=== PATIENT | male | born 1965 | race Caucasian/White ===

== ENCOUNTER 2022-07-24 11:26 | Emergency (ER) | payer MEDICAID, SELFPAY ==
--- NOTE | 2022-07-24 11:37 | PC.NURSE ---
pt ambulatory from restroom to ED room 10 without complications
[2022-07-24 11:38] VITALS: BP 190/117; PULSE 96; RESP 18; TEMP 36.9; O2SAT 90; BMI 30.5
--- NOTE | 2022-07-24 11:50 | PC.NURSE ---
Joseline Admin. rouning on patient and family member
[2022-07-24 11:51] LABS: Microscopic, Urine URINE MICROSCOPIC (MICROSCOPIC)
[2022-07-24 11:52] LABS: Appearance,Urine CLEAR (Clear); Bilirubin,Urine Negative (Negative); Blood, Urine TRACE-I (Negative); Color,Urine YELLOW (Yellow); Glucose,Urine (UA) Negative (Negative); Ketones,Urine Negative (Negative); Leukocyte Esterase,Urine Negative (Negative); Nitrate,Urine Negative (Negative); Protein,Urine 2+ (Negative); Specific Gravity, Urine 1.025 (1.005-1.030); Urobilinogen,Urine 0.2 EU/dl (0.2)
[2022-07-24 12:00] VITALS: BP 169/114; PULSE 90; O2SAT 92
--- NOTE | 2022-07-24 12:05 | HMH.EDGENADL ---
Discharge Plan Disposition Patient Disposition: Home, Self-Care Prescriptions Prescriptions: No Action albuterol sulfate [ProAir HFA] 90 mcg/actuation HFA aerosol inhaler 2 puff INHALATION Q4-6H PRN budesonide-formoterol [Symbicort] 80-4.5 mcg/actuation HFA aerosol inhaler 1 inh IH BID Qty: 10.2 2RF lisinopril 40 mg tablet 40 mg PO DAILY Qty: 90 0RF levofloxacin 500 mg tablet 500 mg PO DAILY Qty: 7 0RF prednisone 20 mg tablet See Rx Instructions .Route .COMPLEX Qty: 15 0RF Rx Instructions: Take 1 tablet twice daily for 5 days, then Take 1 tablet daily for 5 days; amlodipine 10 mg tablet See Rx Instructions .ROUTE .COMPLEX Qty: 90 0RF Dose Instruction: TAKE 1 TABLET BY MOUTH EVERY DAY Rx Instructions: TAKE 1 TABLET BY MOUTH EVERY DAY atorvastatin 20 mg tablet See Rx Instructions .ROUTE .COMPLEX Qty: 90 0RF Dose Instruction: TAKE 1 TABLET BY MOUTH AT BEDTIME Rx Instructions: TAKE 1 TABLET BY MOUTH AT BEDTIME Referrals Follow up/Referrals: Fly Wadsworth MD [Primary Care Provider] - See instructions Clinical Impressions Clinical Impression: COPD (chronic obstructive pulmonary disease), Nonspecific abdominal pain Instructions Patient Instructions: DI for Acute Abdominal Pain Discharge ED Provider: Ishmael Pinto Adult HPI General Chief complaint: Abdominal Pain Stated complaint: abd pain, sent by Dr. Wadsworth Time Seen by Provider: 07/24/22 12:05 Mode of Arrival: Ambulatory Source of Information: Patient Limitations: No Limitations Description of Symptoms (Recalled from ER Triage Doc. by RN): Pt report no energy, tired feeling and abd pain that began wednesday of this week. Pt denies n/v/d or fever. Pt seen by pcp and sent to ER for further evaluation. History of Present Illness HPI narrative: Patient is a 57-year-old male sent over by Dr. Wadsworth for concerns for abdominal discomfort. Patient states that for the last several days has had lower abdominal and right upper quadrant abdominal discomfort. Denies this being postprandial. States it is worse in the morning and bilateral. States is associate with abdominal distention. Patient also complains of chronic cough dyspnea wheezing associate with his COPD which she states is unchanged from the past. Pain is mild to moderate at the moment and he is here because he was sent by his primary care physician. Related Data Home Medications Medication Instructions Recorded Confirmed albuterol sulfate 90 mcg/actuation 2 puff inhalation Q4-6H PRN 10/07/21 07/24/22 aerosol inhaler (ProAir HFA) Previous Rx's Medication Instructions Recorded budesonide-formoterol HFA 80 1 inh inhalation BID #10.2 grams 11/18/21 mcg-4.5 mcg/actuation aerosol inhaler (Symbicort) lisinopril 40 mg tablet 40 mg PO DAILY #90 tabs 11/18/21 amlodipine 10 mg tablet See Rx Instructions .Route 05/27/22 .COMPLEX #90 tabs atorvastatin 20 mg tablet See Rx Instructions .Route 05/27/22 .COMPLEX #90 tabs levofloxacin 500 mg tablet 500 mg PO DAILY #7 tabs 07/20/22 prednisone 20 mg tablet See Rx Instructions .Route 07/20/22 .COMPLEX #15 tabs Allergies Allergy/AdvReac Type Severity Reaction Status Date / Time acetaminophen [From Tylenol] Allergy Intermediate Rash Verified 07/24/22 11:06 [facility] Disclaimer: The information contained in this section may have been updated after the patient was seen, as this information can be updated by other users. Social History Smoking Status: Current every day smoker tobacco type: cigarettes packs per day: 1 alcohol intake: current substance use type: denies use current occupational status: employed Travel in the last 8 weeks: None ROS Obtained: Yes All systems reviewed & no additional complaints except as documented Physical Exam General General appearance: alert and in no apparent distress
[2022-07-24 12:11] LABS: Bacteria,Urine Trace /lpf; RBC,Urine Occasional #/hpf (0-3); WBC,Urine Occasional #/hpf (0-3)
--- NOTE | 2022-07-24 12:28 | XR_ITS ---
FINAL REPORT CLINICAL HISTORY: hx copd FINDINGS: SINGLE-VIEW CHEST The heart size is normal. The mediastinum is normal. There is mild right lung base atelectasis or scar. There is no pneumothorax. IMPRESSION: Right lung base atelectasis versus scar. Reviewed, Interpreted and Dictated by Cody Ge III, MD Transcribed by Leticia Rojas Authenticated and [facility]
--- NOTE | 2022-07-24 12:28 | CT_ITS ---
FINAL REPORT TECHNIQUE: Postcontrast axial images through the abdomen and pelvis were performed. This study was performed with techniques to keep radiation doses as low as reasonably achievable, (ALARA). Individualized dose reduction techniques using automated exposure control or adjustment of mA and/or kV according to the patient's size were employed. CLINICAL HISTORY: abd pain FINDINGS: Abdomen: There is severe coronary artery calcification. There is mild scar or atelectasis in the lung bases. There is mild fatty infiltration of the liver. Mild gallbladder wall thickening is identified. The spleen is unremarkable. The adrenals are normal. The pancreas is unremarkable. The kidneys enhance appropriately. The aorta is normal in caliber. No free fluid or adenopathy is identified. No findings for mechanical bowel obstruction are identified. Edema/inflammation is seen at the level of the umbilicus. Pelvis: The appendix is normal. The urinary bladder is unremarkable. No free fluid, free air, abscess or adenopathy is identified. There is postoperative change in the right femur. IMPRESSION: Mild fatty liver. Severe coronary artery calcification. Reviewed, Interpreted and Dictated by Cody Ge III, MD Transcribed by Leticia Rojas Authenticated and . [facility]
[2022-07-24 12:43] LABS: Basophils # 0.2 K/mm3 (0-0.2); Basophils % 1.7 % (0.1-2.0); Eosinophils % 0.2 % (0.1-12.0); Lymphocytes # 0.9 K/mm3 (0.7-4.5); Lymphocytes % 7.5 % (10-50); Mean Corpuscular HGB Conc 31.7 g/dL (31.8-35.4); Mean Corpuscular Hemoglobin 30.8 pg (27.0-31.2); Mean Corpuscular Volume 97.2 fl (80-94); Mean Platelet Volume 8.7 fl (7.4-10.4); Monocytes # 1.7 K/mm3 (0.1-1.0); Monocytes % 13.2 % (1.7-9.3); Neutrophils # 9.8 K/mm3 (1.8-7.8); Neutrophils % 77.5 % (37.0-80.0); Platelet Count 166 K/mm3 (142-424); Red Blood Count 6.74 M/mm3 (4.60-6.20); White Blood Count 12.6 K/mm3 (4.8-10.8)
[2022-07-24 12:53] LABS: Alanine Aminotransferase 87 U/L (12-78); Albumin/Globulin Ratio 1.2 (1.1-1.8); Alkaline Phosphatase 78 U/L (38-126); Aspartate Amino Transferase 55 U/L (17-59); Blood Urea Nitrogen 23 mg/dl (9-20); Calcium 8.8 mg/dl (8.4-10.2); Chloride 89 mmol/L (98-107); Creatinine Clearance Estimated 149 mL/min (50-200); Estimated Glomerular Filt Rate 100 ml/min (>60); GFR (African American) 121 ML/MIN (>60); Globulin 3.3 g/dL (1.3-3.2); Glucose 138 mg/dl (74-100); Lipase 144 U/L (23-300); Sodium 135 mmol/L (136-145); Total Protein,Serum 7.3 g/dl (6.3-8.2)
[2022-07-24 12:58] LABS: Hematocrit 65.5 % (42.0-52.0)
--- NOTE | 2022-07-24 12:58 | PC.NURSE ---
notified ER of critical h/h
[2022-07-24 13:00] VITALS: BP 177/123; PULSE 75; RESP 17; O2SAT 95
[2022-07-24 13:00] LABS: Hemoglobin 20.8 g/dL (14.1-18.0)
[2022-07-24 13:04] VITALS: BP 193/132; PULSE 80; RESP 18; O2SAT 95
[2022-07-24 13:20] LABS: Carbon Dioxide 39 mmol/L (22.0-30.0)
--- NOTE | 2022-07-24 13:30 | PC.NURSE ---
pt back from rad
[2022-07-24 15:13] VITALS: BP 117/109; PULSE 89; RESP 18; TEMP 36.7
== END 2022-07-24 15:14 | disposition home or self-care (01) ==
PROVIDERS: Emergency Provider Student in an Organized Health Care Education/Training Program; PCP Emergency Medicine
DX: R10.11 Right upper quadrant pain (principal); R10.30 Lower abdominal pain, unspecified; J44.9 Chronic obstructive pulmonary disease, unspecified; R05.3 Chronic cough; F17.210 Nicotine dependence, cigarettes, uncomplicated
CPT/HCPCS: 71045; 74177; 80053; 81001; 83690; 85025; 99285; Q9967

== ENCOUNTER → 2022-09-15 06:01 | Outpatient (CLI) | payer MEDICAID, SELFPAY ==
--- NOTE | 2022-09-15 | CA_ITS ---
APPROVED REPORT Exam: Pharmacologic Technologist: Marilia Garcia Ht: 6 ft 0 in Wt: 228 lbs BSA: 2.25 m2 HR: 93 bpm BP: 185/124 mmHg Indications: Tachycardia, Edema Medical History Medications: Atorvastatin,,,,, Carvedilol,,,,, SyMBICORT,,,,, Albuterol,,,,, Furosemide,,,,, Stress Test Details Test: LEXISCAN HR Resting HR: 88 bpm Max Heart Rate (APMHR): 164.149098 bpm Max HR Achieved: 104 bpm Target HR (85% APMHR): 139.146971 bpm % of APMHR: 63.41 Recovery HR: 92 bpm BP Resting BP: 185.0/124.0 mmHg Max BP: 195.0/125.0 mmHg Recovery BP: 186.0/123.0 mmHg ECG Resting ECG: Normal sinus rhythm, PACs, rightward axis Clinical Exercise duration: 04:12 min Highest Stage Achieved: Exercise capacity: 1.0 METs Stress ECG Conclusion Symptoms: Mild shortness of air, head discomfort. No chest pain. Arrhythmias/Ectopy: Occasional PAC ST-T Changes: No significant changes Conclusion: Unremarkable Lexiscan stress. Myoview images reported separately. Home blood pressure medications given (Lisinopril 40, Coreg 12.5) Blood pressure after stress imaging (75 minutes after medication taken) 156/104. Test Summary REST . . . . . . . Resting REST 12:22 . . 88 . 185/124 . . Stage 1 . . . . . . . Myoview Injected Stage 1 01:00 . . 92 . . . . Stage 2 01:00 . . 96 . . . . Stage 3 01:00 . . 89 . 185/122 . . Stage 4 01:00 . . 88 . . . . Stage 4 01:12 . . 90 . 183/121 . Stop exercise at 04:12 RECOVERY 01:00 . . 100 . 195/125 . . RECOVERY 02:00 . . 96 . 195/125 . . RECOVERY 03:00 . . 93 . 195/119 . . RECOVERY 03:45 . . 90 . 186/123 . . Electronically signed by : Norris Mcclellan MD 09/15/2022 19:27:31
--- NOTE | 2022-09-15 07:29 | NM_ITS ---
APPROVED REPORT Exam: Nuclear Stress Test Indication: DYSRHYTHMIA, HTN, TOB USE, FM HX, C.P,SOB, PALPITATIONS, EDEMS, TACHYCARDIA Patient Location: Outpatient Stress Tech: Marilia Garcia MT Tech:Wendie Yun, SINCERE RT (R)(N)(M) Ht: 6 ft 0 in Wt: 225 lbs HR: 93 bpm BP: 185/124 mmHg BSA: 2.24 m2 TID: 1.12 Procedure: Patient received 0.4 mg of intravenous Lexiscan, resting heart rate 93 bpm, resting blood pressure 185/124 mmHg, with Lexiscan maximum heart rate achieved was 96 bpm which is % of the maximum predicted heart rate and blood pressure was 185/122 mmHg. With Lexiscan, patient denied any complaint of chest pain. SOA Electrocardiogram Resting electrocardiogram showed sinus rhythm, with Lexiscan there is less than 1.[address] segment depression noted from the baseline EKG. The EKG portion of the Lexiscan is nondiagnostic. Cardiac Stress and Resting SPECT Images: Cardiac Stress and Resting SPECT images were obtained using technetium 99m Myoview 31.0 mCi stress and 10.14 mCi at rest. Gated SPECT analysis of segmental wall motion and calculation of the ejection fraction also done. Prone images were also obtained. Cardiac stress and rest SPECT images show uniform myocardial activity without segmental perfusion abnormality, computer derived ejection fraction 35% with left ventricular global hypokinesis. Right ventricle is normal size and contractility. Conclusion: 1. The EKG portion of the Lexiscan is nondiagnostic. 2. No scintigraphic evidence of reversible ischemia seen, computer derived ejection fraction 35% with left ventricular global hypokinesis, right ventricle is normal size and contractility. 3. Normal myocardial perfusion imaging except for low ejection fraction. Electronically signed by : Norris Mcclellan MD 09/15/2022 19:36:05
--- NOTE | 2022-09-15 07:50 | CA_ITS ---
APPROVED REPORT EXAM: Comprehensive 2D, Doppler, and color-flow Echocardiogram Senior Wealth Advisor: Mena Lopez RVT Ht: 6 ft 0 in Wt: 225lbs BSA: 2.24 BP: 148/76 mmHg Indications: EDEMA,TACHYCARDIA,COPD,HTN,HLD,SMOKER 2D Dimensions LVOT 2.03 cm (M/F) 1.5-2.5 LA Volume 30.10 mL LA Volume Index 13.44 mL/m2 (M/F) 16-34 M-Mode Dimensions RVDd 2.70 cm (0.9-2.6) LA Diam 4.01 cm (1.9-4.0) LVDd 4.44 cm (3.5-5.7) Ao Diam 2.65 cm (2.0-3.7) LVDs 3.35 cm (3.5-5.7) IVSd 0.62 cm (0.6-1.1) PWd 0.83 cm (0.6-1.1) EF (Teich) 48.90% FS 24.50% EDV (Teich) 89.60 mL TAPSE 1.88 (<1.7) ESV (Teich) 45.80 mL LV Diastology E Decel Time 220.00 (160-240 msec) E/A Ratio 0.9 MED E' 8.20 (< 7 cm/sec) E'/MED E' Ratio 9.37 (>14) LAT E' 9.40 (<10 cm/sec) E/LAT E' Ratio 8.17 (>14) Aortic Valve AO Peak GR. 7.40 mmHg Mitral Valve MV E Max Pablo. 77.00 (40-130 cm/s) MV A Velocity 83.00 (40-130 cm/s) E/A Ratio 0.92 MV Decel. Time 220.00 (160-240 ms) MV PHT 64.00 ms Pulmonary Valve PV Peak Velocity 69.00 (50-150 cm/s) Tricuspid Valve TR P. Velocity 321.00 cm/s RAP Estimate 10.00 mmHg RVSP 51.10 mmHg Left Ventricle Left atrium normal size left ventricle normal size, estimated ejection fraction 55% with no regional wall motion abnormality, there is abnormal septal motion. Right Ventricle Right atrium and right ventricle moderately enlarged with normal contractility. Aortic Valve Aortic valve is minimally thickened and fibrosed there is no aortic stenosis aortic insufficiency. Mitral Valve Mitral valve is grossly normal, there is trace mitral regurgitation. Tricuspid Valve Tricuspid valve grossly normal, there is trace tricuspid regurgitation, tricuspid regurgitation jet velocity is inadequate for calculation of the right ventricular systolic pressure. Pulmonic Valve Pulmonic valve is poorly visualized. Great Vessels Aortic root is normal size. Inferior vena cava is poorly visualized. Pericardium No significant pericardial effusion noted. Conclusion 1. Normal left ventricular size, estimated ejection fraction 55% with no regional wall motion abnormality, grade 1 diastolic dysfunction seen without tissue Doppler evidence of raise left atrial pressure. There is abnormal septal motion. 2. Moderately enlarged right ventricle with normal contractility. 3. Trace mitral and tricuspid regurgitation. 4. No significant pericardial failure. 5. Inferior vena cava is poorly visualized. Electronically signed by : Norris Mcclellan MD 09/16/2022 05:54:00
== END ==
LOC: RAD 06:01
PROVIDERS: PCP Emergency Medicine; Visit Provider Nurse Practitioner Family
DX: R00.0 Tachycardia, unspecified (principal); I10 Essential (primary) hypertension; R60.0 Localized edema; Z72.0 Tobacco use
CPT/HCPCS: 78452; 93017; 93306; A9502; J2785

== ENCOUNTER → 2022-09-22 14:18 | Outpatient (CLI) | payer MEDICAID, SELFPAY ==
[2022-09-22 14:50] LABS: Basophils # 0.2 K/mm3 (0-0.2); Eosinophils # 0.1 K/mm3 (0.0-0.4); Eosinophils % 1.8 % (0.1-12.0); Lymphocytes # 1.2 K/mm3 (0.7-4.5); Lymphocytes % 16.1 % (10-50); Mean Corpuscular HGB Conc 30.4 g/dL (31.8-35.4); Mean Corpuscular Hemoglobin 29.6 pg (27.0-31.2); Mean Corpuscular Volume 97.4 fl (80-94); Mean Platelet Volume 9.1 fl (7.4-10.4); Monocytes % 13.7 % (1.7-9.3); Neutrophils % 66.4 % (37.0-80.0); Platelet Count 148 K/mm3 (142-424); Red Blood Count 6.99 M/mm3 (4.60-6.20); Red Cell Distribution Width 15.8 % (11.5-17.5); White Blood Count 7.6 K/mm3 (4.8-10.8)
[2022-09-22 15:11] LABS: Alanine Aminotransferase 23 U/L (12-78); Albumin Level 3.8 g/dl (3.5-5.0); Alkaline Phosphatase 110 U/L (38-126); Aspartate Amino Transferase 35 U/L (17-59); Bilirubin,Indirect 0.9 mg/dL (0.0-0.9); Bilirubin,Total 0.9 mg/dl (0.2-1.3); Bilirubin,Unconjugated 0.9 mg/dL (0.0-1.1); Blood Urea Nitrogen 18 mg/dl (9-20); Calcium 8.4 mg/dl (8.4-10.2); Chloride 88 mmol/L (98-107); Chol/HDL Ratio 3.9 (1-3.5); Cholesterol 118 mg/dl (140-200); Estimated Glomerular Filt Rate 100 ml/min (>60); GFR (African American) 121 ML/MIN (>60); Glucose 252 mg/dl (74-100); HDL Cholesterol 30 mg/dl (40-60); Magnesium 1.7 mg/dl (1.6-2.3); Potassium 4.8 mmoL/L (3.5-5.1); Sodium 134 mmol/L (136-145); Triglycerides 159 mg/dl (30-150); VLDL Cholesterol 32 mg/dL (0-40)
[2022-09-22 15:17] LABS: Anion Gap 11.8 mEq/L (5-15); Carbon Dioxide 39 mmol/L (22.0-30.0)
[2022-09-22 15:21] LABS: Hematocrit 68.1 % (42.0-52.0)
[2022-09-22 15:22] LABS: Direct LDL Cholesterol 80.18 mg/dL (100-129); Hemoglobin 20.7 g/dL (14.1-18.0)
[2022-09-22 15:27] LABS: Free T4 (Free Thyroxine) 1.06 ng/dl (0.78-2.19)
[2022-09-22 15:41] LABS: Thyroid Stimulating Hormone 1.41 uIU/mL (0.465-4.68)
== END ==
PROVIDERS: PCP Emergency Medicine; Visit Provider Physician Assistant
DX: R06.00 Dyspnea, unspecified (principal); R00.0 Tachycardia, unspecified; D45 Polycythemia vera; I10 Essential (primary) hypertension; R60.0 Localized edema; R93.1 Abnormal findings on diagnostic imaging of heart and coronary circulation; Z72.0 Tobacco use
CPT/HCPCS: 36415; 80048; 80061; 80076; 83735; 84439; 84443; 85025

== ENCOUNTER 2022-09-30 07:56 | Day surgery (SDC) | payer MEDICAID, SELFPAY ==
[2022-09-30] VITALS (13 sets, daily range): BP systolic 90–176; BP diastolic 50–118; PULSE 63–104; RESP 16–18; TEMP 36.9; O2SAT 88–99; BMI 30.6
--- NOTE | 2022-09-30 07:09 | IR_ITS ---
APPROVED REPORT Patient Location: Outpatient PROCEDURES Left heart catheterization Left ventriculogram Selective coronary angiogram Drug-eluting stent deployment to the proximal codominant circumflex artery INDICATION Coronary artery disease, Worsening ejection fraction, Abnormal Myoview, Angina pectoris Informed consent was obtained prior to the procedure. COMPLICATIONS None Estimated Blood Loss: Less than 10 mls TECHNIQUE One percent lidocaine used to anesthetize the right anterior aspect of the wrist. The right radial artery was accessed via the Seldinger technique. A 6 American sheath was placed in the right radial artery. 150 mg magnesium sulfate, 800 mcg of nitroglycerin, 1mg Lidocaine and 5000 U Heparin were given through the arterial sheath. The papa catheter and 6 American JL 3 guide catheter were also used to perform left heart catheterization, left ventriculogram and selective coronary angiogram. At the end the diagnostic angiogram therapeutic heparin was administered giving a therapeutic ACT and a JL 3 was left in the left main artery followed by Choice PT extra-support wire being placed on the circumflex artery. A 4 mm x 12 mm resolute for anterior stent was deployed at 20 nick reducing the severe stenosis to 0%. SKYLAR-3 flow was present before and after the procedure. At the end of the procedure 200 cc of blood was removed due to the polycythemia. The sheath was then removed good hemostasis was achieved using TR banding patient was transferred to the postop holding in stable condition ANGIOGRAPHIC RESULTS The left main artery Normal The left anterior descending artery Has proximal and mid vessel 20,30 and 40% stenoses The circumflex artery Is codominant and has a proximal concentric 70% stenosis The right coronary artery Is codominant and has proximal 30% stenosis with a mid vessel 30 to 40% stenosis and distal 10% luminal regularities The GUTHRIE ventriculogram reveals Slight left ventricular dilatation ejection fraction 45 to 50% The left ventricular end-diastolic pressure 20 mmHg IMPRESSION Moderate disease throughout the LAD as described above Severe stenosis in the proximal codominant circumflex artery with successful stenting reducing the severe stenosis to 0% with 1 drug-eluting stent Slight left ventricular dilatation with slightly reduced ejection fraction mildly elevated LVEDP PLAN 1. Dual antiplatelet therapy 2. Urgent consultation with Dr. Haley for treatment of almost certain obstructive sleep apnea 3. Large volume phlebotomy was not performed today due to the increase in thrombogenesis following large blood loss especially in the setting of a drug-eluting stent. Only 200 cc of blood was removed today 4. LDL less than 55 to be achieved with high intensity statin 5. Avoidance of tobacco product 6. Risk factor modification 7. Large volume phlebotomy next week Electronically signed by : Arben Rod MD 09/30/2022 11:18:07
--- NOTE | 2022-09-30 15:20 | P.CONPHA_ITS ---
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
[2022-09-30 17:13] LABS: CATHL Activated Clotting Time 354 SEC (74-125)
== END 2022-09-30 15:17 | disposition home or self-care (01) ==
PROVIDERS: PCP Emergency Medicine; Visit Provider Internal Medicine
DX: I25.10 Atherosclerotic heart disease of native coronary artery without angina pectoris (principal); R06.02 Shortness of breath; I10 Essential (primary) hypertension; F17.210 Nicotine dependence, cigarettes, uncomplicated; Z79.899 Other long term (current) drug therapy; E78.5 Hyperlipidemia, unspecified; J44.9 Chronic obstructive pulmonary disease, unspecified
CPT/HCPCS: 85347; 92928; 93458; 99152; 99153; C1725; C1769; C1876; C9600; J1644; Q9967

== ENCOUNTER 2022-10-12 09:29 | Outpatient (CLI) | payer MEDICAID, SELFPAY ==
[2022-10-12 09:44] LABS: MANUAL DIFFERENTIAL MANUAL DIFFERENTIAL (MANUAL DIFF)
[2022-10-12 10:04] LABS: Basophils # 0.1 K/mm3 (0-0.2); Basophils % 1.7 % (0.1-2.0); Eosinophils # 0.4 K/mm3 (0.0-0.4); Eosinophils % 5.1 % (0.1-12.0); Lymphocytes # 1.1 K/mm3 (0.7-4.5); Lymphocytes % 15.2 % (10-50); Mean Corpuscular HGB Conc 30.3 g/dL (31.8-35.4); Mean Corpuscular Hemoglobin 29.2 pg (27.0-31.2); Mean Corpuscular Volume 96.3 fl (80-94); Mean Platelet Volume 9.3 fl (7.4-10.4); Monocytes # 0.5 K/mm3 (0.1-1.0); Monocytes % 7.4 % (1.7-9.3); Neutrophils # 5.2 K/mm3 (1.8-7.8); Neutrophils % 70.7 % (37.0-80.0); Platelet Count 122 K/mm3 (142-424); Red Cell Distribution Width 15.9 % (11.5-17.5); White Blood Count 7.4 K/mm3 (4.8-10.8)
[2022-10-12 10:07] LABS: Red Blood Count 7.36 M/mm3 (4.60-6.20)
[2022-10-12 10:10] LABS: Hematocrit 70.9 % (42.0-52.0); Hemoglobin 21.5 g/dL (14.1-18.0)
[2022-10-12 10:16] LABS: Eosinophils % 4 % (0-3); Lymphocytes % 15 % (10-50); Monocytes % 4 % (2-9); Neutrophils % 77 % (42-76); Total Cells Counted 100
[2022-10-12 10:17] LABS: Anisocytosis 1+; Hypochromasia 1+; Macrocytosis 1+; Platelet Estimate Slight Decrease
[2022-10-12 11:10] LABS: Chloride 90 mmol/L (98-107); Sodium 137 mmol/L (136-145)
[2022-10-12 11:11] LABS: Potassium 4.7 mmoL/L (3.5-5.1)
[2022-10-12 11:13] LABS: Blood Urea Nitrogen 19 mg/dl (9-20); Estimated Glomerular Filt Rate 87 ml/min (>60); GFR (African American) 106 ML/MIN (>60)
[2022-10-12 11:14] LABS: Calcium 8.9 mg/dl (8.4-10.2); Glucose 203 mg/dl (74-100)
[2022-10-12 11:37] LABS: Anion Gap 9.7 mEq/L (5-15); Carbon Dioxide 42 mmol/L (22.0-30.0)
[2022-10-12 11:50] VITALS: BP 154/107; PULSE 79; RESP 18; O2SAT 91
[2022-10-12 12:40] VITALS: BP 174/99; PULSE 76; RESP 18; O2SAT 90
== END 2022-10-12 12:40 | disposition home or self-care (01) ==
PROVIDERS: Nurse Practitioner Family; PCP Emergency Medicine; Visit Provider Internal Medicine
DX: D45 Polycythemia vera (principal); G47.33 Obstructive sleep apnea (adult) (pediatric); I25.10 Atherosclerotic heart disease of native coronary artery without angina pectoris; R06.09 Other forms of dyspnea; R93.1 Abnormal findings on diagnostic imaging of heart and coronary circulation; I10 Essential (primary) hypertension
CPT/HCPCS: 36415; 80048; 85007; 85014; 85018; 85048; 85049; 99195

== ENCOUNTER → 2022-10-20 12:59 | Outpatient (CLI) | payer MEDICAID, SELFPAY ==
--- NOTE | 2022-10-20 12:59 | US_ITS ---
FINAL REPORT CLINICAL HISTORY: .renal mass FINDINGS: RENAL ULTRASOUND Ultrasound images of the kidneys were obtained. The right kidney measures 12.6 cm in length. It is normal echogenicity. There is no hydronephrosis. The left kidney measures 11.3 cm in length. It is normal echogenicity. There is no hydronephrosis. Calcified granulomas are noted in the spleen. IMPRESSION: Normal renal ultrasound. Reviewed, Interpreted and Dictated by Ryan Moya MD Transcribed by Rhonda De Jesus Authenticated and . [facility]
== END ==
PROVIDERS: PCP Emergency Medicine; Visit Provider Nurse Practitioner Family
DX: N28.89 Other specified disorders of kidney and ureter (principal)
CPT/HCPCS: 76770

== ENCOUNTER 2023-01-01 10:37 | Outpatient (CLI) | payer MEDICAID, SELFPAY ==
[2023-01-01 11:07] LABS: Basophils # 0.1 K/mm3 (0-0.2); Basophils % 1.1 % (0.1-2.0); Eosinophils # 0.2 K/mm3 (0.0-0.4); Lymphocytes # 1.4 K/mm3 (0.7-4.5); Lymphocytes % 19.2 % (10-50); Mean Corpuscular HGB Conc 30.1 g/dL (31.8-35.4); Mean Corpuscular Hemoglobin 29.7 pg (27.0-31.2); Mean Corpuscular Volume 98.8 fl (80-94); Mean Platelet Volume 9.2 fl (7.4-10.4); Monocytes # 0.7 K/mm3 (0.1-1.0); Monocytes % 9.5 % (1.7-9.3); Neutrophils # 4.9 K/mm3 (1.8-7.8); Neutrophils % 67.3 % (37.0-80.0); Platelet Count 121 K/mm3 (142-424); Red Blood Count 6.94 M/mm3 (4.60-6.20); Red Cell Distribution Width 16.8 % (11.5-17.5); White Blood Count 7.3 K/mm3 (4.8-10.8)
[2023-01-01 11:27] LABS: Chloride 92 mmol/L (98-107); Potassium 4.3 mmoL/L (3.5-5.1); Sodium 139 mmol/L (136-145)
[2023-01-01 11:30] LABS: Alanine Aminotransferase 27 U/L (12-78); Albumin Level 4.1 g/dl (3.5-5.0); Alkaline Phosphatase 92 U/L (38-126); Aspartate Amino Transferase 44 U/L (17-59); Bilirubin,Direct 0.1 mg/dl (0.0-0.4); Bilirubin,Indirect 1.1 mg/dL (0.0-0.9); Bilirubin,Total 1.2 mg/dl (0.2-1.3); Bilirubin,Unconjugated 1.2 mg/dL (0.0-1.1); Blood Urea Nitrogen 18 mg/dl (9-20); Calcium 9.3 mg/dl (8.4-10.2); Cholesterol 117 mg/dl (140-200); Estimated Glomerular Filt Rate 87 ml/min (>60); GFR (African American) 106 ML/MIN (>60); Glucose 172 mg/dl (74-100); Total Protein,Serum 7.3 g/dl (6.3-8.2); Triglycerides 103 mg/dl (30-150); VLDL Cholesterol 21 mg/dL (0-40)
[2023-01-01 11:31] LABS: Chol/HDL Ratio 3.7 (1-3.5); HDL Cholesterol 32 mg/dl (40-60); Magnesium 1.6 mg/dl (1.6-2.3)
[2023-01-01 11:42] LABS: Direct LDL Cholesterol 69.45 mg/dL (100-129)
[2023-01-01 11:47] LABS: Anion Gap 10.3 mEq/L (5-15); Carbon Dioxide 41 mmol/L (22.0-30.0); Free T4 (Free Thyroxine) 1.05 ng/dl (0.78-2.19)
[2023-01-01 11:51] LABS: Hematocrit 68.6 % (42.0-52.0)
[2023-01-01 12:02] LABS: Thyroid Stimulating Hormone 1.48 uIU/mL (0.465-4.68)
[2023-01-01 12:07] LABS: Hemoglobin 20.5 g/dL (14.1-18.0)
[2023-01-01 12:18] VITALS: BP 162/90; PULSE 72; RESP 18; O2SAT 96
[2023-01-01 12:57] VITALS: BP 137/96; PULSE 75; RESP 18
== END 2023-01-01 12:57 | disposition home or self-care (01) ==
PROVIDERS: PCP Emergency Medicine; Visit Provider Nurse Practitioner
DX: R06.00 Dyspnea, unspecified (principal); D45 Polycythemia vera; I25.10 Atherosclerotic heart disease of native coronary artery without angina pectoris; I10 Essential (primary) hypertension; G47.33 Obstructive sleep apnea (adult) (pediatric); R93.1 Abnormal findings on diagnostic imaging of heart and coronary circulation; Z72.0 Tobacco use; Z95.5 Presence of coronary angioplasty implant and graft
CPT/HCPCS: 36415; 80048; 80061; 80076; 83735; 84439; 84443; 85025; 99195

== ENCOUNTER → 2023-01-06 13:02 | Outpatient (CLI) | payer MEDICAID, SELFPAY | PROVIDERS: PCP Emergency Medicine; Visit Provider Specialist | DX: G47.33 Obstructive sleep apnea (adult) (pediatric) (principal); R06.83 Snoring | CPT/HCPCS: G0399 ==

== ENCOUNTER 2023-04-09 14:22 | Inpatient (IN) | payer OTHER, SELFPAY ==
[2023-04-09] VITALS (13 sets, daily range): BP systolic 112–140; BP diastolic 73–97; PULSE 79–93; RESP 18–22; TEMP 36.5–37.2; O2SAT 82–95; BMI 29.9; BMI 30.9
--- NOTE | 2023-04-09 14:50 | CT_ITS ---
FINAL REPORT TECHNIQUE: Thin section axial CT with IV contrast supplemented with multiplanar reconstruction under CT angiogram protocol. 3-D reconstructions were performed. This study was performed with techniques to keep radiation doses as low as reasonably achievable (ALARA). Individualized dose reduction techniques using automated exposure control or adjustment of mA and/or kV according to the patient''s size were employed. CLINICAL HISTORY: ataxia, n/v COMPARISON: None FINDINGS: The distal vertebral, basilar and distal internal carotid arteries have an unremarkable appearance. No aneurysm is seen. Major intracranial vessels are patent without significant stenosis. IMPRESSION: No significant intracranial vascular abnormality identified. Reviewed, Interpreted and Dictated by Cody Ge III, MD Transcribed by Janie Bhagat Authenticated and [facility]
--- NOTE | 2023-04-09 14:50 | CT_ITS ---
FINAL REPORT CLINICAL HISTORY: ataxia, n/v COMPARISON: None FINDINGS: Axial images of the head were obtained without contrast. There is mild degradation of overall image quality secondary to motion artifact. Coronal and sagittal reformatted images were also obtained.This study was performed with techniques to keep radiation doses as low as reasonably achievable (ALARA). Individualized dose reduction techniques using automated exposure control or adjustment of mA and/or kV according to the patient's size were employed. There is no evidence of intracranial hemorrhage or mass. The ventricular size is within normal limits. There is no evidence of shift of the midline structures. No abnormal extra axial fluid collection is identified. No skull abnormality is seen on the bone window images. IMPRESSION: No acute intracranial abnormality. Reviewed, Interpreted and Dictated by Cody Ge III, MD Transcribed by Janie Bhagat Authenticated and [facility]
--- NOTE | 2023-04-09 14:50 | CT_ITS ---
FINAL REPORT TECHNIQUE: Thin section axial CT with IV contrast supplemented with multiplanar reconstruction under CT angiogram protocol. This study was performed with techniques to keep radiation doses as low as reasonably achievable (ALARA). Individualized dose reduction techniques using automated exposure control or adjustment of mA and/or kV according to the patient's size were employed. NASCET criteria was utilized during interpretation. CLINICAL HISTORY: ataxia, n/v COMPARISON: None FINDINGS: Aortic arch: Arch shows no significant narrowing. Great vessel origins are widely patent. Right carotid: The right common carotid artery is unremarkable in appearance. There is heavily calcified plaque present at the carotid bifurcation, which makes evaluation more difficult. The degree of stenosis does not appear to be greater than 30% luminal diameter. Left carotid: The left common carotid artery is unremarkable in appearance. There is mild heavily calcified plaque noted at the carotid bifurcation, which makes evaluation more difficult. However there does not appear to be any hemodynamically significant stenosis. Vertebral: Left vertebral artery is dominant. No significant stenosis is present. IMPRESSION: Calcified plaque at the carotid bifurcations bilaterally, with less than 50% stenosis on either side. Antegrade flow in the vertebral arteries bilaterally, with the left vertebral artery dominant. Reviewed, Interpreted and Dictated by Cody Ge III, MD Transcribed by Janie Bhagat Authenticated and [facility]
--- NOTE | 2023-04-09 14:53 | HMH.EDGENADL ---
Discharge Plan Disposition Patient Disposition: Admitted Prescriptions Prescriptions: No Action lisinopril 40 mg tablet 40 mg PO DAILY Qty: 90 3RF albuterol sulfate [ProAir HFA] 90 mcg/actuation HFA aerosol inhaler 2 puff INHALATION Q4-6H PRN (Reason: .) carvedilol 25 mg tablet See Rx Instructions .ROUTE .COMPLEX Qty: 180 3RF Dose Instruction: Take 1 tablet by mouth twice daily with food Rx Instructions: Take 1 tablet by mouth twice daily with food (DME) blood-glucose meter [Blood Glucose Monitoring] Kit See Rx Instructions .Route Qty: 1 0RF Rx Instructions: As directed (DME) Blood Glucose Test Strip See Rx Instructions .Route Qty: 50 3RF Rx Instructions: As directed 2 times a day ipratropium-albuterol 0.5 mg-3 mg(2.5 mg base)/3 mL solution for nebulization See Rx Instructions .ROUTE .COMPLEX Qty: 180 1RF Dose Instruction: USE 3 ML VIA NEBULIZER EVERY 4 TO 6 HOURS NEEDED FOR SHORTNESS OF BREATH OR WHEEZING Rx Instructions: USE 3 ML VIA NEBULIZER EVERY 4 TO 6 HOURS NEEDED FOR SHORTNESS OF BREATH OR WHEEZING metformin 500 mg tablet See Rx Instructions .ROUTE .COMPLEX Qty: 60 0RF Dose Instruction: Take 1 tablet by mouth twice daily Rx Instructions: Take 1 tablet by mouth twice daily aspirin 325 mg Tablet 325 mg PO DAILY budesonide-formoterol [Symbicort] 80-4.5 mcg/actuation HFA aerosol inhaler 1 inh IH BID atorvastatin 20 mg tablet See Rx Instructions .ROUTE .COMPLEX Rx Instructions: TAKE 1 TABLET BY MOUTH AT BEDTIME furosemide [Lasix] 20 mg tablet 20 mg PO DAILY Referrals Follow up/Referrals: Fly Wadsworth MD [Primary Care Provider] - See instructions Clinical Impressions Clinical Impression: Nausea & vomiting, Ataxia, SAUD (acute kidney injury), Acute dehydration Discharge ED Provider: Saqib Gilliland General Adult HPI <Thomas Pinto MD - Last Filed: 04/09/23 14:56> General Chief complaint: Neuro Symptoms/Deficit Stated complaint: vomiting since midnight, weakness,lightheaded Time Seen by Provider: 04/09/23 14:34 History of Present Illness HPI narrative: Patient is a 57-year-old male with a history of coronary disease and COPD presents today with nausea and vomiting and changes in coordination. This began about 1 AM suddenly felt good yesterday. No preceding ear infections or ear symptoms however he does state that he has some changes in the way that he is hearing right now and states that it sounds like on electronic voice. Denies any headache or neck pain. Denies any vision changes numbness weakness and tingling in the arms or legs. States he had numerous episodes of nausea and vomiting. Related Data Home Medications Medication Instructions Recorded Confirmed atorvastatin 20 mg tablet See Rx Instructions .Route 09/30/22 04/09/23 .COMPLEX . furosemide 20 mg tablet (Lasix) 20 mg PO DAILY . 09/30/22 04/09/23 albuterol sulfate 90 mcg/actuation 2 puff inhalation Q4-6H PRN . 10/29/22 04/09/23 aerosol inhaler (ProAir HFA) aspirin 325 mg tablet 325 mg PO DAILY 04/09/23 04/09/23 budesonide-formoterol HFA 80 1 inh inhalation BID Copd 04/09/23 04/09/23 mcg-4.5 mcg/actuation aerosol inhaler (Symbicort) Previous Rx's Medication Instructions Recorded carvedilol 25 mg tablet See Rx Instructions .Route 12/29/22 .COMPLEX #180 tabs lisinopril 40 mg tablet 40 mg PO DAILY #90 tabs 01/01/23 blood-glucose meter (Blood Glucose #1 ea 01/15/23 Monitoring kit) blood sugar diagnostic (Blood #50 ea 01/19/23 Glucose Test strips) ipratropium 0.5 mg-albuterol 3 mg See Rx Instructions .Route 03/01/23 (2.5 mg base)/3 mL nebulization .COMPLEX #180 mL soln metformin 500 mg tablet See Rx Instructions .Route 03/30/23 .COMPLEX #60 tabs Allergies Allergy/AdvReac Type Severity Reaction Status Date / Time acetaminophen [From Tylenol] Allergy Intermediate Rash Verified
--- NOTE | 2023-04-09 14:56 | ECG_ITS ---
APPROVED REPORT Exam: Resting ECG HR:84 bpm ECG Measurements Heart Rate 84 AXES ND 167 P 64 QRSd 97 QRS 94 QT 362 T 29 QTc 403 Conclusion SINUS RHYTHM BORDERLINE RIGHT AXIS DEVIATION [QRS AXIS > 90] BORDERLINE ECG UNCONFIRMED REPORT Electronically signed by : Ortega Torres MD 04/10/2023 10:38:10
[2023-04-09 15:02] LABS: Basophils # 0.1 K/mm3 (0-0.2); Basophils % 0.9 % (0.1-2.0); Eosinophils % 0.2 % (0.1-12.0); Lymphocytes # 1.2 K/mm3 (0.7-4.5); Lymphocytes % 12.7 % (10-50); Mean Corpuscular HGB Conc 31.5 g/dL (31.8-35.4); Mean Corpuscular Hemoglobin 32.2 pg (27.0-31.2); Mean Corpuscular Volume 102.1 fl (80-94); Mean Platelet Volume 8.9 fl (7.4-10.4); Monocytes # 1.2 K/mm3 (0.1-1.0); Monocytes % 13.3 % (1.7-9.3); Neutrophils # 6.7 K/mm3 (1.8-7.8); Platelet Count 169 K/mm3 (142-424); Red Blood Count 6.38 M/mm3 (4.60-6.20); Red Cell Distribution Width 14.9 % (11.5-17.5); White Blood Count 9.1 K/mm3 (4.8-10.8)
[2023-04-09 15:08] LABS: Hematocrit 65.1 % (42.0-52.0)
[2023-04-09 15:10] LABS: Activated Partial Thrombo Time 31.9 seconds (22.8-30.6); Alanine Aminotransferase 79 U/L (12-78); Albumin Level 4.1 g/dl (3.5-5.0); Albumin/Globulin Ratio 1.2 (1.1-1.8); Alkaline Phosphatase 99 U/L (38-126); Aspartate Amino Transferase 108 U/L (17-59); Bilirubin,Total 1.5 mg/dl (0.2-1.3); Blood Urea Nitrogen 34 mg/dl (9-20); Calcium 9.6 mg/dl (8.4-10.2); Chloride 84 mmol/L (98-107); Estimated Glomerular Filt Rate 37 ml/min (>60); GFR (African American) 45 ML/MIN (>60); Globulin 3.5 g/dL (1.3-3.2); Glucose 162 mg/dl (74-100); INR 1.66 (0.9-1.1); Potassium 4.8 mmoL/L (3.5-5.1); Prothrombin Time 17.3 seconds (10.1-12.5); Sodium 136 mmol/L (136-145); Total Protein,Serum 7.6 g/dl (6.3-8.2)
--- NOTE | 2023-04-09 15:10 | PC.NURSE ---
Dr. Pinto notified of critical hemoglobin & hct.
[2023-04-09 15:15] LABS: Hemoglobin 20.5 g/dL (14.1-18.0)
[2023-04-09 15:38] LABS: Anion Gap 19.8 mEq/L (5-15); Carbon Dioxide 37 mmol/L (22.0-30.0)
[2023-04-09 15:42] LABS: Troponin I 0.41 ng/ml (0.00-0.034)
--- NOTE | 2023-04-09 15:42 | CT_ITS ---
FINAL REPORT TECHNIQUE: Then section axial CT images of the chest were obtained with contrast. Three-D reformatted images were also obtained.This study was performed with techniques to keep radiation doses as low as reasonably achievable (ALARA). Individualized dose reduction techniques using automated exposure control or adjustment of mA and/or kV according to the patient's size were employed. CLINICAL HISTORY: CP, dizziness COMPARISON: None FINDINGS: There is a suboptimal bolus of contrast which decreases overall sensitivity on this examination. Mild cardiomegaly is noted. Mild atelectasis is present in the lung henry bilaterally. There is no evidence of pulmonary embolism. There is no evidence of thoracic aortic aneurysm or dissection. There is no evidence of mediastinal or hilar mass or adenopathy. There is no evidence of pulmonary mass or suspicious nodule. No localized inflammatory process is seen within the lungs. Limited images of the upper abdomen reveal gallbladder wall thickening with adjacent inflammatory change, cholecystitis not excluded. IMPRESSION: No evidence of pulmonary embolism. No mass or localized inflammatory process. Gallbladder wall thickening with adjacent inflammatory change, cholecystitis not excluded. Would suggest ultrasound of the right upper quadrant, possibly hepatobiliary scan for further evaluation. Reviewed, Interpreted and Dictated by Cody Ge III, MD Transcribed by Janie Bhagat Authenticated and . [facility]
--- NOTE | 2023-04-09 15:58 | PC.NURSE ---
semiconductor equipment technician called critical troponin to Dr. Gilliland @ [phone]
--- NOTE | 2023-04-09 16:10 | ECG_ITS ---
APPROVED REPORT Exam: Resting ECG HR:87 bpm ECG Measurements Heart Rate 87 AXES OK 162 P 70 QRSd 102 QRS 96 QT 368 T 7 QTc 413 Conclusion SINUS RHYTHM WITH OCCASIONAL SUPRAVENTRICULAR PREMATURE COMPLEXES BORDERLINE RIGHT AXIS DEVIATION [QRS AXIS > 90] Baseline artifact limits interpretation BORDERLINE ECG UNCONFIRMED REPORT Electronically signed by : Ortega Torres MD 04/10/2023 10:37:58
--- NOTE | 2023-04-09 17:28 | PC.NURSE ---
Dr. Gilliland s/w hospitalist for admission
--- NOTE | 2023-04-09 17:37 | PC.NURSE ---
call made to care management for bed placement
--- NOTE | 2023-04-09 17:59 | PC.NURSE ---
gave report to Mia Garcia RN
--- NOTE | 2023-04-09 18:54 | EXP.HP ---
History of Present Illness *Admission Date: 04/09/23 *Reason for visit:: nausea, vomiting *History of present illness: Patient is a 57-year-old male with past medical history of diabetes mellitus tobacco use polycythemia vera presented to hospital due to nausea vomiting and dizziness. According the patient he has been feeling sick for the past 1 day. He has not been able to tolerate diet however at time of evaluation he says his symptoms have improved. He denied chest pain shortness of breath numbness tingling sensation weakness in arms or legs. He denied fevers chills. [facility] Disclaimer: The information contained in this section may have been updated after the patient was seen, as this information can be updated by other users. Medical History Abnormal echocardiogram Arthritis CAD (coronary atherosclerotic disease) Recent stent procedure COPD (chronic obstructive pulmonary disease) Dyspnea Edema of both lower extremities HLD (hyperlipidemia) HTN (hypertension) Obstructive sleep apnea syndrome Polycythemia vera Polycythemia vera Awaiting evaluation by hematology oncology at [facility]. Sinus tachycardia Witnessed episode of apnea Surgical History History of heart artery stent Hx of tonsillectomy Family History Other Cancer Diabetes Heart attack Hyperlipidemia Hypertension Social History Smoking Status: Current every day smoker tobacco type: cigarettes packs per day: 1 alcohol intake: current substance use type: denies use current occupational status: employed Travel in the last 8 weeks: None Review of Systems Review of Systems Review of systems (narrative): negative for HPI Meds Home Medications and Allergies Home Medications Medication Instructions Recorded Confirmed Type atorvastatin 20 mg tablet 20 mg PO DAILY hyperlipidemia 09/30/22 04/09/23 History furosemide 20 mg tablet (Lasix) 20 mg PO DAILY chf 09/30/22 04/09/23 History albuterol sulfate 90 mcg/actuation 2 puff inhalation Q4-6H PRN . 10/29/22 04/09/23 History aerosol inhaler (ProAir HFA) lisinopril 40 mg tablet 40 mg PO DAILY #90 tabs 01/01/23 04/09/23 Rx blood-glucose meter (Blood Glucose #1 ea 01/15/23 Rx Monitoring kit) blood sugar diagnostic (Blood #50 ea 01/19/23 Rx Glucose Test strips) ipratropium 0.5 mg-albuterol 3 mg See Rx Instructions .Route 03/01/23 04/09/23 Rx (2.5 mg base)/3 mL nebulization .COMPLEX #180 mL soln aspirin 325 mg tablet 325 mg PO DAILY 04/09/23 04/09/23 History budesonide-formoterol HFA 80 1 inh inhalation BID Copd 04/09/23 04/09/23 History mcg-4.5 mcg/actuation aerosol inhaler (Symbicort) carvedilol 25 mg tablet 25 mg PO BID 04/09/23 04/09/23 History metformin 500 mg tablet 500 mg PO BID 04/09/23 04/09/23 History ticagrelor 90 mg tablet (Brilinta) 90 mg PO BID 04/09/23 04/09/23 History New Prescriptions to Start Prescriptions: Allergies Allergy/AdvReac Type Severity Reaction Status Date / Time acetaminophen [From Tylenol] Allergy Intermediate Rash Verified 02/17/23 10:26 Exam Data for Last 24 hours Vital signs and Labs for Last 24 Hours: Temp Pulse Resp BP Pulse Ox O2 Del Method O2 Flow Rate 98.1 F 83 18 112/96 H 93 L Nasal Cannula 5 04/09/23 18:49 04/09/23 18:49 04/09/23 18:49 04/09/23 18:49 04/09/23 18:49 04/09/23 18:49 04/09/23 18:49 Laboratory Results - last 24 hr 04/09/23 14:46: WBC 9.1, RBC 6.38 H, Hgb 20.5 H, Hct 65.1 H*, MCV 102.1 H, MCH 32.2 H, MCHC 31.5 L, RDW 14.9, Plt Count 169, MPV 8.9, Neut % (Auto) 73.0, Lymph % (Auto) 12.7, [place] % (Auto) 13.3 H, Eos % (Auto) 0.2, Baso % (Auto) 0.9, Neut # (Auto) 6.7, Lymph # (Auto) 1.2, [place] # (Auto) 1.2 H, Eos # (Auto) 0.0, Baso # (Auto) 0.1, PT 17.3 H, INR 1.66 H, AP
[2023-04-09 19:08] LABS: Troponin I 1.12 ng/ml (0.00-0.034)
[2023-04-09 20:58] LABS: POC Glucose,Bedside 110 (70-110)
[2023-04-09 21:47] LABS: Troponin I 1.46 ng/ml (0.00-0.034)
[2023-04-10] VITALS (21 sets, daily range): BP systolic 83–131; BP diastolic 52–92; PULSE 69–92; RESP 16–28; TEMP 36.4–37.6; O2SAT 87–95; BMI 30.9
[2023-04-10 00:11] LABS: ABG Base Excess 10.6 mmol/L (-2.4-2.3); ABG HCO3 38.5 mmhg (22.0-26.0); ABG Oxygen Saturation 92 % (90-100); ABG PH 7.21 mmol/L (7.35-7.45); ABG PO2 66.9 mmhg (80-100); ABG TCO2 41.5 mmhg (23-27)
[2023-04-10 00:13] LABS: Allen's Test Acceptable; Oxygen 4L %; Source Left Radial
[2023-04-10 00:14] LABS: ABG PCO2 98.7 mmhg (35.0-45.0)
[2023-04-10 00:44] LABS: POC Glucose,Bedside 133 (70-110)
--- NOTE | 2023-04-10 01:00 | PC.NURSE ---
Pt up to bathroom around 0000, pt stumbling and gait very unsteady, Pt claimed that he felt drunk and dizzy. Pt blood glucose was 133 and O2 sat @ 78% after returning from the bathroom, Pt O2 increased to 6L and sats climbed to 99%, Nurse x3 in room, Notified Salbador Gomes. at this time, received orders for a stat ABG and Lasix 40 mg IV once. Received ABG results indicative of respiratory acidosis, BiPAP ordered and applied. Pt resting and tolerating BiPAP well at this time.
--- NOTE | 2023-04-10 04:11 | PC.NURSE ---
Pt is alert and oriented x4, Pt is currently on BiPAP and tolerating it well. Pt O2 sat is 90-94%. Pt denies pain and other needs at this time
[2023-04-10 05:28] LABS: POC Glucose,Bedside 132 (70-110)
[2023-04-10 06:27] LABS: ABG Base Excess 10.9 mmol/L (-2.4-2.3); ABG HCO3 38.4 mmhg (22.0-26.0); ABG Oxygen Saturation 93 % (90-100); ABG PH 7.23 mmol/L (7.35-7.45); ABG TCO2 41.2 mmhg (23-27)
[2023-04-10 06:32] LABS: ABG PCO2 92.9 mmhg (35.0-45.0)
[2023-04-10 07:18] LABS: Basophils # 0.1 K/mm3 (0-0.2); Basophils % 1.2 % (0.1-2.0); Eosinophils % 0.1 % (0.1-12.0); Lymphocytes # 0.8 K/mm3 (0.7-4.5); Lymphocytes % 9.6 % (10-50); Mean Corpuscular HGB Conc 31.5 g/dL (31.8-35.4); Mean Corpuscular Hemoglobin 32.6 pg (27.0-31.2); Mean Corpuscular Volume 103.5 fl (80-94); Mean Platelet Volume 8.9 fl (7.4-10.4); Monocytes # 1.4 K/mm3 (0.1-1.0); Monocytes % 17.2 % (1.7-9.3); Neutrophils % 71.9 % (37.0-80.0); Platelet Count 150 K/mm3 (142-424); Red Blood Count 5.91 M/mm3 (4.60-6.20); Red Cell Distribution Width 15.1 % (11.5-17.5); White Blood Count 8.4 K/mm3 (4.8-10.8)
[2023-04-10 07:25] LABS: Chloride 88 mmol/L (98-107); Potassium 4.6 mmoL/L (3.5-5.1); Sodium 133 mmol/L (136-145)
[2023-04-10 07:28] LABS: Blood Urea Nitrogen 38 mg/dl (9-20); Creatinine Clearance Estimated 71 mL/min (50-200); Estimated Glomerular Filt Rate 42 ml/min (>60); GFR (African American) 51 ML/MIN (>60); Glucose 134 mg/dl (74-100)
[2023-04-10 07:36] LABS: Anion Gap 10.6 mEq/L (5-15); Carbon Dioxide 39 mmol/L (22.0-30.0)
[2023-04-10 07:58] LABS: Hematocrit 61.2 % (42.0-52.0)
[2023-04-10 08:05] LABS: Hemoglobin 19.5 g/dL (14.1-18.0)
--- NOTE | 2023-04-10 08:33 | HMH.PHAINT1 ---
Pharmacy Intervention Comments: MEDICATION RECONCILIATION COMPLETED ON PATIENT USING EXTERNAL FILL HISTORY FROM PHARMACY AND LIST FROM PCP OFFICE. -TAYLOR MORROW, LUIS DANIELD
--- NOTE | 2023-04-10 09:13 | HMH.PHAHEP ---
[facility] Pharmacy Heparin Dosing Demographic Data Admission date:: 04/09/23 Date: 04/10/23 Time: 09:14 Allergies Allergy/AdvReac Type Severity Reaction Status Date / Time acetaminophen [From Tylenol] Allergy Intermediate Rash Verified 02/17/23 10:26 Height: 1.83 m Weight: 103.7 kg Indication Medication therapy:: Heparin Current Active Problems (Updated 04/13/23 @ 07:25 by Errol Strickland MD) Pneumonia (Acute) Acute respiratory failure with hypoxia and hypercarbia (Acute) Nausea & vomiting (Acute) Ataxia (Acute) SAUD (acute kidney injury) (Acute) Acute dehydration (Acute) Non-ST elevation [place] (NSTEMI) (Acute) Diabetes mellitus (Acute) History of heart artery stent (Acute) Smoker (Chronic) Polycythemia vera (Chronic) Obstructive sleep apnea syndrome (Chronic) CAD (coronary atherosclerotic disease) (Chronic) Polycythemia vera (Acute) GERD (gastroesophageal reflux disease) (Acute) CVA?: No Bleeding problem?: No Kidney disease?: No VT?: No Desired PTT range:: 50-75 seconds Labs Anticoagulation Lab Results:: 04/09/23 04/10/23 14:46 06:46 Hgb 20.5 H 19.5 H Hct 65.1 H* 61.2 H* Plt Count 169 150 Monitoring Dose Monitor 1: Date: 04/10/23 Time: 09:30 PTT Result:: 30.8 (BASELINE) Infusion Rate:: 1,000 UNIT/HR Comment:: 4,000 UNIT BOLUS Dose Monitor 2: Date: 04/10/23 Time: 17:20 PTT Result:: 40.9 Infusion Rate:: INCREASE RATE TO 1,200 UNITS/HR Comment:: 3,000 UNIT BOLUS Dose Monitor 3: Date: 04/11/23 Time: 00:25 PTT Result:: 40.4 Infusion Rate:: INCREASE RATE TO 1,400 UNITS/HR Comment:: 3,000 UNIT BOLUS Dose Monitor 4: Date: 04/11/23 Time: 06:32 PTT Result:: 86.5 Infusion Rate:: DECREASE RATE TO 1,300 UNITS/HR Comment:: PAP=[id number] Dose Monitor 5: Date: 04/11/23 Time: 14:50 PTT Result:: 53.6 Infusion Rate:: 1,300 UNITS/HR Dose Monitor 6: Date: 04/11/23 Time: 21:35 PTT Result:: 46.9 Infusion Rate:: INCREASE RATE TO 1,500 UNITS/HR Dose Monitor 7: Date: 04/12/23 Time: 05:40 PTT Result:: 1,500 UNITS/HR Dose Monitor 8: Date: 04/12/23 Time: 15:45 PTT Result:: DRIP STOPPED Comment:: DRIP STOPPED Core Measures Is INR > or = 2 at discharge?: No Most Recent Labs:: Laboratory Results - last 24 hr 04/09/23 14:46: WBC 9.1, RBC 6.38 H, Hgb 20.5 H, Hct 65.1 H*, MCV 102.1 H, MCH 32.2 H, MCHC 31.5 L, RDW 14.9, Plt Count 169, MPV 8.9, Neut % (Auto) 73.0, Lymph % (Auto) 12.7, [place] % (Auto) 13.3 H, Eos % (Auto) 0.2, Baso % (Auto) 0.9, Neut # (Auto) 6.7, Lymph # (Auto) 1.2, [place] # (Auto) 1.2 H, Eos # (Auto) 0.0, Baso # (Auto) 0.1, PT 17.3 H, INR 1.66 H, APTT 31.9 H, Sodium 136, Potassium 4.8, Chloride 84 L, Carbon Dioxide 37 H, Anion Gap 19.8 H, BUN 34 H, Creatinine 1.90 H, Estimated GFR 37 L, Est GFR ( Amer) 45 L, Glucose 162 H, Calcium 9.6, Total Bilirubin 1.5 H, AST 108 H, ALT 79 H, Alkaline Phosphatase 99, Troponin I 0.41 H, Total Protein 7.6, Albumin 4.1, Globulin 3.5 H, Albumin/Globulin Ratio 1.2 04/09/23 18:30: Troponin I 1.12 H 04/09/23 20:31: POC Glucose 110 04/09/23 21:10: Troponin I 1.46 H 04/09/23 23:49: POC Glucose 133 H 04/09/23 23:53: Specimen Source Left radial, O2 % 4l, ABG pH 7.21 L*, ABG pCO2 98.7 H, ABG pO2 66.9 L, ABG HCO3 38.5 H, ABG Total CO2 41.5 H, ABG O2 Saturation 92, ABG Base Excess 10.6 H, Ben Test Acceptable 04/10/23 05:12: POC Glucose 132 H 04/10/23 06:00: ABG pH 7.23 L*, ABG pCO2 92.9 H, ABG pO2 70.0 L, ABG HCO3 38.4 H, ABG Total CO2 41.2 H, ABG O2 Saturation 93, ABG Base Excess 10.9 H 04/10/23 06:46: WBC 8.4, RBC 5.91, Hgb 19.5 H, Hct 61.2 H*, MCV 103.5 H, MCH 32.6 H, MCHC 31.5 L, RDW 15.1, Plt Count 150, MPV 8.9, Neut % (Auto) 71.9, Lymph % (Auto) 9.6 L, [place] % (Auto) 17.2 H, Eos % (Auto) 0.1, Baso % (Auto) 1.2, Neut # (Auto) 6.0, Lymph #
[2023-04-10 09:26] LABS: PTT Heparin (inpatient only) 30.8 Seconds (23.6-34.0)
--- NOTE | 2023-04-10 09:47 | PC.NURSE ---
Pt refuses to keep Bipap on at this time. O2 NC placed on pt. Pt has been noted to take NC off also at times. Education provided by this nurse and MD about importance in interventions such as Bipap, O2, medications and safety measures. is at bedside with pt.
--- NOTE | 2023-04-10 10:28 | PC.NURSE ---
Report given to Estefani Silva
[2023-04-10 10:33] LABS: ABG Base Excess 12.5 mmol/L (-2.4-2.3); ABG Oxygen Saturation 87 % (90-100); ABG PO2 52.7 mmhg (80-100); ABG TCO2 41.6 mmhg (23-27)
[2023-04-10 10:35] LABS: ABG PCO2 82.1 mmhg (35.0-45.0)
--- NOTE | 2023-04-10 11:25 | PC.NURSE ---
upon arrival to room placed pt on bipap, but pt removed bipap to speak with MD at bedside, pt's oxygen saturations decrease immediately to low 80's when bipap removed, pt placed on 4LNC and oxygen saturations 85-87%, after speaking with MD placed pt back on bipap and oxygen saturations increased to 94%
--- NOTE | 2023-04-10 11:38 | PC.NURSE ---
MD Tsai rounded at bedside and assessed pt and labs and stated that pt's kidney function labs not suitable to go to chemical laboratory technician today, but will recheck labs in am and re-assess, continue heparin drip and wearing bipap at this time
[2023-04-10 11:55] LABS: POC Glucose,Bedside 219 (70-110)
--- NOTE | 2023-04-10 12:18 | PC.NURSE ---
spoke with MD Tsai and pt okay to have renal diet until midnight dylon
--- NOTE | 2023-04-10 13:45 | EXP.CARD.CON ---
History of Present Illness History of Present Illness Consult date: 04/10/23 Chief complaint: Nausea, vomiting and dizziness History of present illness: 57-year-old male with past medical history of diabetes mellitus, hypertension, dyslipidemia, coronary artery disease, coronary artery stent insertion, smoker, sleep apnea and polycythemia vera presented to hospital due to nausea vomiting and dizziness. According the patient he has been feeling sick for the past 1 day. He denies chest pain or shortness of breath. EKG shows sinus rhythm without ST-T abnormality. Initial troponin was slightly elevated. Troponin is 1.4 today which is significantly elevated. Initial creatinine was 1.9 which is 1.7 today. CTA chest did not show pulm embolism or other acute lung pathology. I was consulted for possible non-STEMI management. Patient is not having any chest pain at present. On BiPAP Stable vitals [facility] Disclaimer: The information contained in this section may have been updated after the patient was seen, as this information can be updated by other users. Medical History Abnormal echocardiogram Arthritis CAD (coronary atherosclerotic disease) Recent stent procedure COPD (chronic obstructive pulmonary disease) Dyspnea Edema of both lower extremities HLD (hyperlipidemia) HTN (hypertension) Obstructive sleep apnea syndrome Polycythemia vera Polycythemia vera Awaiting evaluation by hematology oncology at [facility]. Sinus tachycardia Witnessed episode of apnea Surgical History History of heart artery stent Hx of tonsillectomy Family History Other Cancer Diabetes Heart attack Hyperlipidemia Hypertension Social History Smoking Status: Current every day smoker tobacco type: cigarettes packs per day: 1 alcohol intake: current substance use type: denies use current occupational status: employed Travel in the last 8 weeks: None Review of Systems Review of Systems Review of systems (narrative): negative for HPI Exam Data for Last 24 hours Vital signs and Labs for Last 24 Hours: Temp Pulse Resp BP Pulse Ox O2 Del Method O2 Flow Rate 98.2 F 73 19 94/66 L 91 L BiPAP 4.5 04/10/23 12:00 04/10/23 12:00 04/10/23 12:00 04/10/23 12:00 04/10/23 12:00 04/10/23 12:00 04/10/23 09:00 FiO2 50 04/10/23 11:00 Laboratory Results - last 24 hr 04/09/23 14:46: WBC 9.1, RBC 6.38 H, Hgb 20.5 H, Hct 65.1 H*, MCV 102.1 H, MCH 32.2 H, MCHC 31.5 L, RDW 14.9, Plt Count 169, MPV 8.9, Neut % (Auto) 73.0, Lymph % (Auto) 12.7, [place] % (Auto) 13.3 H, Eos % (Auto) 0.2, Baso % (Auto) 0.9, Neut # (Auto) 6.7, Lymph # (Auto) 1.2, [place] # (Auto) 1.2 H, Eos # (Auto) 0.0, Baso # (Auto) 0.1, PT 17.3 H, INR 1.66 H, APTT 31.9 H, Sodium 136, Potassium 4.8, Chloride 84 L, Carbon Dioxide 37 H, Anion Gap 19.8 H, BUN 34 H, Creatinine 1.90 H, Estimated GFR 37 L, Est GFR ( Amer) 45 L, Glucose 162 H, Calcium 9.6, Total Bilirubin 1.5 H, AST 108 H, ALT 79 H, Alkaline Phosphatase 99, Troponin I 0.41 H, Total Protein 7.6, Albumin 4.1, Globulin 3.5 H, Albumin/Globulin Ratio 1.2 04/09/23 18:30: Troponin I 1.12 H 04/09/23 20:31: POC Glucose 110 04/09/23 21:10: Troponin I 1.46 H 04/09/23 23:49: POC Glucose 133 H 04/09/23 23:53: Specimen Source Left radial, O2 % 4l, ABG pH 7.21 L*, ABG pCO2 98.7 H, ABG pO2 66.9 L, ABG HCO3 38.5 H, ABG Total CO2 41.5 H, ABG O2 Saturation 92, ABG Base Excess 10.6 H, Ben Test Acceptable 04/10/23 05:12: POC Glucose 132 H 04/10/23 06:00: ABG pH 7.23 L*, ABG pCO2 92.9 H, ABG pO2 70.0 L, ABG HCO3 38.4 H, ABG Total CO2 41.2 H, ABG O2 Saturation 93, ABG Base Excess 10.9 H 04/10/23 06:46: WBC 8.4, RBC 5.91, Hgb 19.5 H, Hct 61.2 H*, MCV 103.5 H, MCH 32.6 H, MCHC 31.5 L, RDW 15.1, Plt Count 150, MPV 8.9
--- NOTE | 2023-04-10 16:33 | EXP.PN ---
Subjective *Date: 04/10/23 *Time: 16:33 Interval history: Patient was seen and evaluated at the bedside. Had wheezing, denies chest pain, nausea, vomiting, abdominal pain. patient mentions he wants to go home and is not fully cooperative and compliant with the staff. do not feels better today, feels same as yesterday Exam Data for Last 24 hours Vital signs and Labs for Last 24 Hours: Temp Pulse Resp BP Pulse Ox O2 Del Method O2 Flow Rate 99.6 F 85 28 H 131/92 H 88 L BiPAP 4.5 04/10/23 16:00 04/10/23 14:00 04/10/23 14:00 04/10/23 14:00 04/10/23 16:23 04/10/23 16:23 04/10/23 09:00 FiO2 60 04/10/23 16:23 Laboratory Results - last 24 hr 04/09/23 18:30: Troponin I 1.12 H 04/09/23 20:31: POC Glucose 110 04/09/23 21:10: Troponin I 1.46 H 04/09/23 23:49: POC Glucose 133 H 04/09/23 23:53: Specimen Source Left radial, O2 % 4l, ABG pH 7.21 L*, ABG pCO2 98.7 H, ABG pO2 66.9 L, ABG HCO3 38.5 H, ABG Total CO2 41.5 H, ABG O2 Saturation 92, ABG Base Excess 10.6 H, Ben Test Acceptable 04/10/23 05:12: POC Glucose 132 H 04/10/23 06:00: ABG pH 7.23 L*, ABG pCO2 92.9 H, ABG pO2 70.0 L, ABG HCO3 38.4 H, ABG Total CO2 41.2 H, ABG O2 Saturation 93, ABG Base Excess 10.9 H 04/10/23 06:46: WBC 8.4, RBC 5.91, Hgb 19.5 H, Hct 61.2 H*, MCV 103.5 H, MCH 32.6 H, MCHC 31.5 L, RDW 15.1, Plt Count 150, MPV 8.9, Neut % (Auto) 71.9, Lymph % (Auto) 9.6 L, [place] % (Auto) 17.2 H, Eos % (Auto) 0.1, Baso % (Auto) 1.2, Neut # (Auto) 6.0, Lymph # (Auto) 0.8, [place] # (Auto) 1.4 H, Eos # (Auto) 0.0, Baso # (Auto) 0.1, Sodium 133 L, Potassium 4.6, Chloride 88 L, Carbon Dioxide 39 H, Anion Gap 10.6, BUN 38 H, Creatinine 1.70 H, Estimated Creat Clear 71, Estimated GFR 42 L, Est GFR ( Amer) 51 L, Glucose 134 H, Calcium 8.0 L 04/10/23 09:04: APTT 30.8 04/10/23 10:29: ABG pH 7.30 L, ABG pCO2 82.1 H, ABG pO2 52.7 L, ABG HCO3 39.0 H, ABG Total CO2 41.6 H, ABG O2 Saturation 87 L*, ABG Base Excess 12.5 H 04/10/23 11:46: POC Glucose 219 H I & O for Last 24 hours: Intake & Output 04/07/23 04/08/23 04/09/23 04/10/23 23:59 23:59 23:59 23:59 Intake Total 620 / 620 Output Total 600 / 600 Balance Weight 103.589 kg 103.7 kg Constitutional Constitutional: no acute distress *Routine HEENT Exam Head: Present normocephalic Eye: Present EOMI and PERRL ENT: Present mucous membranes moist *Routine Neck Exam Neck: Present supple; Absent lymphadenopathy *Routine Respiratory Exam Comments: has b/l lung wheezing *Routine Cardiovascular Exam Cardiovascular: Present RRR *Routine Abdominal Exam Abdominal: Present soft and normoactive bowel sounds; Absent tenderness *Routine Extremities Exam Extremities: Absent cyanosis, clubbing or edema *Routine Skin Exam Skin: Present warm; Absent rash *Routine Neurological Exam Neurological: Present alert and oriented X3 Assessment and Plan *Assessment and plan (1) SAUD (acute kidney injury): Status: Acute Category: Medical Code(s): N17.9 - Acute kidney failure, unspecified (2) Acute dehydration: Status: Acute Category: Medical Code(s): E86.0 - Dehydration (3) Non-ST elevation CA (NSTEMI): Status: Acute Category: Medical Code(s): I21.4 - Non-ST elevation (NSTEMI) myocardial infarction (4) Nausea & vomiting: Status: Acute Category: Medical Code(s): R11.2 - Nausea with vomiting, unspecified (5) History of heart artery stent: Status: Acute Category: Surgical Code(s): Z95.5 - Presence of coronary angioplasty implant and graft (6) Smoker: Status: Chronic Category: Social Hx Code(s): F17.200 - Nicotine dependence, unspecified, uncomplicated (7) Polycythemia vera: Problem Comment: Awaiting evaluation by hematology oncology at [facility]. Status: Chronic Category: Medical Code(s): D45 - Polycythemia vera (8) CAD (coronary atherosclerotic dise
[2023-04-10 16:51] LABS: POC Glucose,Bedside 116 (70-110)
--- NOTE | 2023-04-10 17:15 | XR_ITS ---
PROCEDURE INFORMATION: Exam: XR Chest Exam date and time: 04/10/2023 5:43 PM Age: 57 years old Clinical indication: Shortness of breath; Additional info: SOB TECHNIQUE: Imaging protocol: Radiologic exam of the chest. Views: 1 view. COMPARISON: CT ANGIO CHEST 04/09/2023 3:53 PM FINDINGS: Lungs: Right lower lung consolidation is probably due to right lower lobe collapse. Mild left lung base atelectasis. Left upper lobe calcified granuloma. Calcified left hilar lymph node. Pleural spaces: Normal No pleural effusion. No pneumothorax. Heart/Mediastinum: Normal. No cardiomegaly. Bones/joints: Unremarkable. IMPRESSION: 1. Right lower lung consolidation is probably due to right lower lobe collapse. 2. Mild left lung base atelectasis.
--- NOTE | 2023-04-10 17:19 | CT_ITS ---
PROCEDURE INFORMATION: Exam: CT Abdomen And Pelvis Without Contrast Exam date and time: 04/10/2023 8:46 PM Age: 57 years old Clinical indication: Pain; Other: Cholecystitis TECHNIQUE: Imaging protocol: Computed tomography of the abdomen and pelvis without contrast. Radiation optimization: All CT scans at this facility use at least one of these dose optimization techniques: automated exposure control; mA and/or kV adjustment per patient size (includes targeted exams where dose is matched to clinical indication); or iterative reconstruction. REPORTING DATA: Count of CT and Cardiac NM exams in prior 12 months: This patient has received 5 known CTs and 0 known cardiac nuclear medicine studies in the 12 months prior to the current study. COMPARISON: CT ABDOMEN PELVIS W CON 07/24/2022 1:25 PM FINDINGS: Lungs: Complete right lower lobe consolidation. Mild lingular and left lower lobe consolidation. Coronary arteries: Extensive coronary artery calcification. Liver: Normal. No mass. Gallbladder and bile ducts: Mild pericholecystic fat stranding. No gallbladder distention. No significant biliary ductal dilatation. Pancreas: Normal. No ductal dilation. Spleen: Calcified granulomas in the spleen. No splenomegaly. Adrenal glands: Normal. No mass. Kidneys and ureters: Normal. No hydronephrosis. Stomach and bowel: Distal colonic diverticulosis. No bowel obstruction. Appendix: No evidence of appendicitis. Intraperitoneal space: Unremarkable. No free air. No significant fluid collection. Vasculature: Moderate aortoiliac atherosclerotic disease without aneurysm. Lymph nodes: Unremarkable. No enlarged lymph nodes. Urinary bladder: Unremarkable as visualized. Reproductive: Unremarkable as visualized. Bones/joints: Surgical hardware in the proximal right femur from previous fracture fixation. Mild chronic compression deformities of T8 and T9. Soft tissues: Unremarkable. IMPRESSION: 1. Complete right lower lobe and mild lingular and left lower lobe consolidation could be secondary to atelectasis or pneumonia. 2. Mild pericholecystic fat stranding raises concern for acute cholecystitis. No significant biliary ductal dilatation.
[2023-04-10 17:23] LABS: VBG Base Excess 9.9 mmol/L (-2.4-2.3); VBG HCO3 34.4 mmol/L (23-30); VBG Oxygen Saturation 97.2 % (50-70); VBG PCO2 54.7 mmol/L (35-51); VBG PH 7.42 mmol/L (7.31-7.41); VBG PO2 84.3 mmol/L (28-40); VBG Total CO2 36.1 mmol/L (23-27)
--- NOTE | 2023-04-10 17:44 | PC.NURSE ---
started new 20G PIV in Left forearm for antibiotics
--- NOTE | 2023-04-10 17:56 | PC.NURSE ---
noted pt's oxygen saturation 77% on monitor, upon entering room pt's significant other had removed bipap to give pt drinks of water, educated pt and significant other about bipap and aspiration precautions
[2023-04-10 18:06] LABS: PTT Heparin (inpatient only) 40.9 Seconds (23.6-34.0)
[2023-04-10 18:09] LABS: Troponin I 2.41 ng/ml (0.00-0.034)
--- NOTE | 2023-04-10 18:22 | PC.NURSE ---
notified MD Hough of pt's elevated troponin, instructed this RN to notify MD Tsai, paged MD Tsai at this time
--- NOTE | 2023-04-10 18:25 | PC.NURSE ---
notified MD Tsai that pt's troponin increased from 1.46 to 2.41, stated to continue heparin drip and will assess labs in am
--- NOTE | 2023-04-10 18:30 | PC.NURSE ---
informed MD Stokes of what MD Tsai instructed this RN, no new orders at this time
--- NOTE | 2023-04-10 19:02 | PC.NURSE ---
increased heparin drip to 1200units/hr per emar
[2023-04-11] VITALS (16 sets, daily range): BP systolic 96–133; BP diastolic 62–89; PULSE 57–80; RESP 13–26; TEMP 36.6–37.2; O2SAT 84–93; BMI 31.2
[2023-04-11 00:44] LABS: PTT Heparin (inpatient only) 40.4 Seconds (23.6-34.0)
--- NOTE | 2023-04-11 01:14 | PC.NURSE ---
spoke with álvaro from eval pharmacy regarding pt. PTT and heparin dosing, gave 3,000 unit bolus of heparin and increased gtt. to 1400 units/hr
[2023-04-11 07:02] LABS: Chloride 88 mmol/L (98-107); Sodium 133 mmol/L (136-145)
[2023-04-11 07:05] LABS: Blood Urea Nitrogen 39 mg/dl (9-20); Calcium 7.8 mg/dl (8.4-10.2); Creatinine Clearance Estimated 111 mL/min (50-200); Estimated Glomerular Filt Rate 69 ml/min (>60); GFR (African American) 84 ML/MIN (>60); Glucose 219 mg/dl (74-100)
[2023-04-11 07:12] LABS: Carbon Dioxide 38 mmol/L (22.0-30.0)
[2023-04-11 07:32] LABS: Basophils % 0.2 % (0.1-2.0); Eosinophils % 0.1 % (0.1-12.0); Hematocrit 58.4 % (42.0-52.0); Lymphocytes # 0.5 K/mm3 (0.7-4.5); Lymphocytes % 3.1 % (10-50); Mean Corpuscular HGB Conc 32.2 g/dL (31.8-35.4); Mean Corpuscular Hemoglobin 32.5 pg (27.0-31.2); Mean Platelet Volume 8.9 fl (7.4-10.4); Monocytes # 1.8 K/mm3 (0.1-1.0); Monocytes % 11.9 % (1.7-9.3); Neutrophils # 12.8 K/mm3 (1.8-7.8); Neutrophils % 84.9 % (37.0-80.0); Platelet Count 162 K/mm3 (142-424); Red Blood Count 5.78 M/mm3 (4.60-6.20); White Blood Count 15.1 K/mm3 (4.8-10.8)
[2023-04-11 07:36] LABS: MANUAL DIFFERENTIAL MANUAL DIFFERENTIAL (MANUAL DIFF)
[2023-04-11 07:37] LABS: POC Glucose,Bedside 194 (70-110)
[2023-04-11 07:37] LABS: POC Glucose,Bedside 134 (70-110)
[2023-04-11 07:39] LABS: PTT Heparin (inpatient only) 86.5 Seconds (23.6-34.0)
--- NOTE | 2023-04-11 07:52 | PC.NURSE ---
[facility] notified this RN to decrease heparin drip to 1300units/hr and recheck another aPTT at 1450, PTT order entered
[2023-04-11 09:15] LABS: Lymphocytes % 3 % (10-50); Macrocytosis 1+; Monocytes % 10 % (2-9); Neutrophils % 87 % (42-76); Platelet Estimate Normal; Total Cells Counted 100
[2023-04-11 10:01] LABS: Hemoglobin 18.8 g/dL (14.1-18.0); RBC Morphology Normal
--- NOTE | 2023-04-11 11:18 | XR_ITS ---
PROCEDURE INFORMATION: Exam: XR Chest Exam date and time: 04/11/2023 11:30 AM Age: 57 years old Clinical indication: Other: Hypoxia TECHNIQUE: Imaging protocol: Radiologic exam of the chest. Views: 1 view. Portable upright chest x-ray. Other technique: COMPARISON: CR XR CHEST PORTABLE 04/10/2023 5:43 PM FINDINGS: Lungs: Right lower lobe consolidation and volume loss. Streaky opacities in the left lung base are unchanged. Pleural spaces: No pleural effusion. No pneumothorax. Heart/Mediastinum: No abnormalities. No cardiomegaly. No pulmonary vascular congestion. Bones/joints: No fractures or bone lesions. IMPRESSION: 1. Right lower lobe atelectasis or pneumonia. 2. Streaky left lower lobe opacities are unchanged and could be due to atelectasis or pneumonia.
[2023-04-11 11:38] LABS: ABG Base Excess 11.2 mmol/L (-2.4-2.3); ABG HCO3 35.3 mmhg (22.0-26.0); ABG Oxygen Saturation 80 % (90-100); ABG PH 7.45 mmol/L (7.35-7.45); ABG TCO2 36.9 mmhg (23-27)
[2023-04-11 11:41] LABS: Allen's Test Acceptable; Source Right Radial; Vent Rate 22
[2023-04-11 11:42] LABS: ABG PCO2 52.5 mmhg (35.0-45.0)
[2023-04-11 11:43] LABS: ABG PO2 41.7 mmhg (80-100)
--- NOTE | 2023-04-11 12:01 | PC.NURSE ---
notified MD Sahw of pt's cxr results and that oxygen saturations are 84-86% on bipap, to review chart and call this RN back
--- NOTE | 2023-04-11 13:04 | PC.NURSE ---
RT Maldonado taking bipap off pt and putting vapotherm 40L and 80%FIO2 on pt to keep oxygen saturations 88% or greater per order from MD Shaw
[2023-04-11 15:06] LABS: PTT Heparin (inpatient only) 53.6 Seconds (23.6-34.0)
--- NOTE | 2023-04-11 15:18 | EXP.SURG.CON ---
History of Present Illness *Admission Date: 04/09/23 *History of present illness: Patient is a 57-year-old male with past medical history of diabetes mellitus tobacco use polycythemia vera presented to hospital due to nausea vomiting and dizziness. According the patient he has been feeling sick for the past 1 day. He has not been able to tolerate diet however at time of evaluation he says his symptoms have improved. He denied chest pain shortness of breath numbness tingling sensation weakness in arms or legs. He denied fevers chills. Mr. Kwan is a 57-year-old male with a history of diabetes type 2, tobacco use, polycythemia vera who was admitted to the hospital with nausea, vomiting, and dizziness. He was found to have elevated troponins, and deemed to have an NSTEMI. He has been seen by cardiology, and may be having a cath tomorrow. He also has acute kidney injury but creatinine has been resolving. At the time of admission, his total bilirubin was 1.5, AST was 108, ALT was 79. He had a CT PE protocol yesterday to rule out a PE, and there is incidental finding of mild pericholecystic fat stranding, possibly concerning for cholecystitis. He also had right lower lobe consolidation, that was very prominent upon my review of the images. He had some nausea vomiting yesterday, but today he denies nausea or vomiting. He is hungry and wishes he had something to eat. He denies right upper quadrant abdominal pain. He did receive IV steroids, is on Zosyn for the right lower lobe pneumonia, and is on a heparin drip for NSTEMI. [facility] Disclaimer: The information contained in this section may have been updated after the patient was seen, as this information can be updated by other users. Medical History Abnormal echocardiogram Arthritis CAD (coronary atherosclerotic disease) COPD (chronic obstructive pulmonary disease) Dyspnea Edema of both lower extremities HLD (hyperlipidemia) HTN (hypertension) Obstructive sleep apnea syndrome Polycythemia vera Polycythemia vera Sinus tachycardia Witnessed episode of apnea Surgical History History of heart artery stent Hx of tonsillectomy Family History Other Cancer Diabetes Heart attack Hyperlipidemia Hypertension Social History Smoking Status: Current every day smoker tobacco type: cigarettes packs per day: 1 alcohol intake: current substance use type: denies use current occupational status: employed Travel in the last 8 weeks: None Review of Systems Review of Systems Review of systems:: pertinent systems reviewed and negative unless documented below *Cardiovascular Cardiovascular: Reports as per HPI *Gastrointestinal Gastrointestinal: Denies abdominal pain and Reports vomiting Meds Home Medications and Allergies Home Medications Medication Instructions Recorded Confirmed Type atorvastatin 20 mg tablet 20 mg PO HS Cholesterol 09/30/22 04/10/23 History furosemide 20 mg tablet (Lasix) 20 mg PO DAILY Fluid 09/30/22 04/09/23 History albuterol sulfate 90 mcg/actuation 2 puff inhalation Q4HP PRN 10/29/22 04/10/23 History aerosol inhaler (ProAir HFA) Shortness Of Breath blood-glucose meter (Blood Glucose #1 ea 01/15/23 04/10/23 Rx Monitoring kit) blood sugar diagnostic (Blood #50 ea 01/19/23 04/10/23 Rx Glucose Test strips) aspirin 325 mg tablet 325 mg PO DAILY Heart Health 04/09/23 04/09/23 History budesonide-formoterol HFA 80 1 inh inhalation BID Breathing 04/09/23 04/09/23 History mcg-4.5 mcg/actuation aerosol Problems inhaler (Symbicort) carvedilol 25 mg tablet 25 mg PO BID High Blood Pressure 04/09/23 04/09/23 History metformin 500 mg tablet 500 mg PO BIDWMEAL Diabetes 04/09/23 04/10/23 History ticagrelor 90 mg tablet (Brilinta) 90 mg
--- NOTE | 2023-04-11 16:06 | EXP.PN ---
Subjective *Date: 04/11/23 *Time: 16:06 Interval history: Patient was seen and evaluated at the bedside. He feels better, Had wheezing which is improving, denies chest pain, nausea, vomiting, abdominal pain. feels better today Exam Data for Last 24 hours Vital signs and Labs for Last 24 Hours: Temp Pulse Resp BP Pulse Ox O2 Del Method O2 Flow Rate 98.5 F 58 L 23 121/76 88 L Vapotherm 4.5 04/11/23 15:58 04/11/23 14:00 04/11/23 14:00 04/11/23 14:00 04/11/23 14:00 04/11/23 14:00 04/10/23 09:00 FiO2 90 04/11/23 12:00 Laboratory Results - last 24 hr 04/10/23 16:42: POC Glucose 116 H 04/10/23 17:20: APTT 40.9 H, Troponin I 2.41 H 04/10/23 17:21: VBG pH 7.42 H, VBG pCO2 54.7 H, VBG pO2 84.3 H, VBG HCO3 34.4 H, VBG Total CO2 36.1 H, VBG O2 Saturation 97.2 H, VBG Base Excess 9.9 H 04/10/23 21:01: POC Glucose 134 H 04/11/23 00:25: APTT 40.4 H 04/11/23 05:52: POC Glucose 194 H 04/11/23 06:32: WBC 15.1 H D, RBC 5.78, Hgb 18.8 H, Hct 58.4 H, MCV 101.0 H, MCH 32.5 H, MCHC 32.2, RDW 15.0, Plt Count 162, MPV 8.9, Neut % (Auto) 84.9 H, Lymph % (Auto) 3.1 L, [place] % (Auto) 11.9 H, Eos % (Auto) 0.1, Baso % (Auto) 0.2, Neut # (Auto) 12.8 H, Lymph # (Auto) 0.5 L, [place] # (Auto) 1.8 H, Eos # (Auto) 0.0, Baso # (Auto) 0.0, Total Counted 100, Neutrophils % (Manual) 87 H, Lymphocytes % (Manual) 3 L, Monocytes % (Manual) 10 H, Platelet Estimate Normal, RBC Morphology Normal, Macrocytosis 1+, APTT 86.5 H*, Sodium 133 L, Potassium 4.0, Chloride 88 L, Carbon Dioxide 38 H, Anion Gap 11.0, BUN 39 H, Creatinine 1.10 D, Estimated Creat Clear 111, Estimated GFR 69, Est GFR ( Amer) 84 D, Glucose 219 H D, Calcium 7.8 L 04/11/23 11:18: Specimen Source Right radial, O2 % 90% bipap 07/04, ABG pH 7.45, ABG pCO2 52.5 H, ABG pO2 41.7 L, ABG HCO3 35.3 H, ABG Total CO2 36.9 H, ABG O2 Saturation 80 L*, ABG Base Excess 11.2 H, Ben Test Acceptable, Vent Rate 04/11/23 14:48: APTT 53.6 H* I & O for Last 24 hours: Intake & Output 04/08/23 04/09/23 04/10/23 04/11/23 23:59 23:59 23:59 23:59 Intake Total 800 / 850 566 / 566 Output Total 600 / 600 1450 / 1450 Balance 200 / 250 -884 / -884 Weight 103.589 kg 103.7 kg 104.6 kg Constitutional Constitutional: no acute distress *Routine HEENT Exam Head: Present normocephalic Eye: Present EOMI and PERRL ENT: Present mucous membranes moist *Routine Neck Exam Neck: Present supple; Absent lymphadenopathy *Routine Respiratory Exam Comments: has b/l lung wheezing but better than yesterday *Routine Cardiovascular Exam Cardiovascular: Present RRR *Routine Abdominal Exam Abdominal: Present soft and normoactive bowel sounds; Absent tenderness *Routine Extremities Exam Extremities: Absent cyanosis, clubbing or edema *Routine Skin Exam Skin: Present warm; Absent rash *Routine Neurological Exam Neurological: Present alert and oriented X3 Assessment and Plan *Assessment and plan (1) SAUD (acute kidney injury): Status: Acute Category: Medical Code(s): N17.9 - Acute kidney failure, unspecified (2) Nausea & vomiting: Problem Comment: I reviewed the CT scan images. There is a very slight amount of inflammation of the gallbladder. This was an incidental finding, and CT scan would not be the most helpful imaging modality for diagnosing cholelithiasis or cholecystitis. Recommend gallbladder ultrasound on Wednesday morning when available. Repeat LFTs in the morning: These were slightly elevated on admission 48 hours ago. He is on antibiotics for pneumonia, and this would also cover if he truly does have cholecystitis. He does have a leukocytosis today, but I would attribute this to his IV steroids. Any gallbladder issues were probably be secondary to his prominent right lower lobe pneumonia and NSTEMI, and if ultrasound points to gallbladder pathology, he may benefit from medical treatment with antibiotics and interval cholecystectomy once his other issues are resolved. St
[2023-04-11 16:47] LABS: POC Glucose,Bedside 213 (70-110)
[2023-04-11 20:09] LABS: POC Glucose,Bedside 202 (70-110)
[2023-04-11 21:53] LABS: Activated Partial Thrombo Time 46.9 seconds (22.8-30.6)
[2023-04-12] VITALS (35 sets, daily range): BP systolic 94–177; BP diastolic 53–103; PULSE 50–98; RESP 10–21; TEMP 36.6–37.2; O2SAT 83–95; BMI 29.2
--- NOTE | 2023-04-12 04:35 | PC.NURSE ---
Pt AOx4, intermittently sleeping throughout shift, SpO2 85-90% on Vapotherm 40 L 90% FiO2, other VSS. at bedside, intermittently assisting pt with urinal. Per pt, denies any discussion regarding cardiac cath risks/benefits at this time. Educated tentative cardiac cath schedule and need for a.m. prep, pt verbalized. Heparin gtt managed per protocol and concurrently with [facility] pharmacist, next aPTT ordered, currently at 1300 u/hr. No acute events or needs at this time.
[2023-04-12 05:55] LABS: POC Glucose,Bedside 200 (70-110)
[2023-04-12 06:44] LABS: Chloride 90 mmol/L (98-107); Potassium 3.9 mmoL/L (3.5-5.1); Sodium 132 mmol/L (136-145)
[2023-04-12 06:47] LABS: Blood Urea Nitrogen 41 mg/dl (9-20); Calcium 7.4 mg/dl (8.4-10.2); Creatinine Clearance Estimated 127 mL/min (50-200); Estimated Glomerular Filt Rate 87 ml/min (>60); GFR (African American) 106 ML/MIN (>60); Glucose 214 mg/dl (74-100)
[2023-04-12 06:55] LABS: Anion Gap 5.9 mEq/L (5-15); Carbon Dioxide 40 mmol/L (22.0-30.0)
[2023-04-12 07:08] LABS: Basophils % 0.1 % (0.1-2.0); Hemoglobin 17.4 g/dL (14.1-18.0); Lymphocytes # 0.4 K/mm3 (0.7-4.5); Lymphocytes % 2.3 % (10-50); Mean Corpuscular HGB Conc 32.3 g/dL (31.8-35.4); Mean Corpuscular Hemoglobin 32.4 pg (27.0-31.2); Mean Corpuscular Volume 100.2 fl (80-94); Mean Platelet Volume 8.9 fl (7.4-10.4); Monocytes # 1.7 K/mm3 (0.1-1.0); Monocytes % 10.4 % (1.7-9.3); Neutrophils # 13.9 K/mm3 (1.8-7.8); Neutrophils % 87.1 % (37.0-80.0); Platelet Count 147 K/mm3 (142-424); Red Blood Count 5.38 M/mm3 (4.60-6.20); Red Cell Distribution Width 14.9 % (11.5-17.5); White Blood Count 15.9 K/mm3 (4.8-10.8)
[2023-04-12 07:14] LABS: MANUAL DIFFERENTIAL MANUAL DIFFERENTIAL (MANUAL DIFF)
--- NOTE | 2023-04-12 07:20 | CA_ITS ---
APPROVED REPORT EXAM: Comprehensive 2D, Doppler, and color-flow Echocardiogram [employer] Mechanical Engineer: Bree Pollard RDCS Ht: 6 ft 1 in Wt: 217lbs BSA: 2.23 BP: 149/789 mmHg Indications: CP,CAD,COPD,HTN,HLP,NSTEMI 2D Dimensions LVOT 1.65 cm (M/F) 1.5-2.5 M-Mode Dimensions RVDd 3.44 cm (0.9-2.6) LA Diam 2.77 cm (1.9-4.0) LVDd 4.88 cm (3.5-5.7) Ao Diam 4.13 cm (2.0-3.7) LVDs 3.44 cm (3.5-5.7) IVSd 0.64 cm (0.6-1.1) PWd 1.23 cm (0.6-1.1) EF (Teich) 56.30% FS 29.50% EDV (Teich) 111.70 mL TAPSE 3.60 (<1.7) ESV (Teich) 48.80 mL LV Diastology E Decel Time 157.00 (160-240 msec) E/A Ratio 0.8 MED E' 7.90 (< 7 cm/sec) E'/MED E' Ratio 7.77 (>14) LAT E' 8.60 (<10 cm/sec) E/LAT E' Ratio 7.14 (>14) Mitral Valve MV E Max Pablo. 61.00 (40-130 cm/s) MV A Velocity 80.00 (40-130 cm/s) E/A Ratio 0.77 MV Decel. Time 157.00 (160-240 ms) MV PHT 46.00 ms Tricuspid Valve TR P. Velocity 297.00 cm/s RAP Estimate 10.00 mmHg RVSP 45.20 mmHg Left Ventricle The left ventricle is normal size. The left ventricular systolic function is normal. The left ventricular ejection fraction is within the normal range. There is normal left ventricular wall thickness. There is normal LV segmental wall motion. Diastolic function is indeterminate. LVEF is 55%. Right Ventricle The right ventricle is moderately to severely dilated Right ventricle is moderately hypokinetic. Atria The left atrium is normal in size. The right atrium size is normal. Aortic Valve The aortic valve opens well. There is no aortic valvular stenosis. No aortic regurgitation is present. Mitral Valve The mitral valve is normal in structure. No evidence of mitral valve stenosis. Trace mitral regurgitation. Tricuspid Valve The tricuspid valve leaflets are thin and pliable. Mild tricuspid regurgitation. RVSP is 40-45 mmHg. Pulmonic Valve The pulmonary valve is grossly normal in structure. Trace pulmonic regurgitation. Great Vessels The aortic root is normal in size. The ascending aorta is not well visualized. IVC is normal in size and collapses >50% with inspiration. Pericardium There is no pericardial effusion. Other Information Study Quality: Technically Difficult Conclusion This was a technically difficult study due to poor acoustic windows. Normal biventricular LV systolic function. Moderate to severe RV dilation with moderate RV dysfunction. Mild TR. Elevated RVSP 40-45 mmHg. Electronically signed by : Ivis Mendoza MD 04/12/2023 20:57:25
--- NOTE | 2023-04-12 07:22 | PC.NURSE ---
Report received. Patient resting in bed with eyes closed. 149/91 88% on vapotherm, 11 respirations, 55 heart rate.
--- NOTE | 2023-04-12 07:25 | US_ITS ---
FINAL REPORT CLINICAL HISTORY: eval cholelithiasis, cholecystitis FINDINGS: Sonographic images of the right upper quadrant were obtained. The pancreas is partially obscured.The liver has an unremarkable appearance. There is gallbladder wall thickening measuring 9 mm. Sludge is seen throughout the gallbladder. No gallstones are identified. There is no evidence of biliary ductal dilatation.The common duct measures 3mm. Limited images of the right kidney are unremarkable. IMPRESSION: Gallbladder wall thickening with sludge. Cholecystitis not excluded. Consider nuclear medicine hepatobiliary scan. Reviewed, Interpreted and Dictated by Cody Ge III, MD Transcribed by Dena Ashford Authenticated and . [facility]
[2023-04-12 07:31] LABS: Activated Partial Thrombo Time 65.1 seconds (22.8-30.6)
--- NOTE | 2023-04-12 07:43 | PC.NURSE ---
Called pharmacy, spoke to Nadege Valdovinos to remain at current dose.
[2023-04-12 08:00] LABS: Lymphocytes % 4 % (10-50); Monocytes % 5 % (2-9); Neutrophils % 87 % (42-76); Total Cells Counted 100
[2023-04-12 08:02] LABS: Hypochromasia 1+; Macrocytosis 1+; Platelet Estimate Slight Decrease
--- NOTE | 2023-04-12 08:44 | PC.NURSE ---
RESP CARE NOTE: Pt SPO2 consistently remaining 86%, Vapotherm increased to 40L/100%FIO2. Discussed with patient, putting BIPAP on. He states, No way you're putting that machine back on my face. Will continue to monitor patient.
--- NOTE | 2023-04-12 09:28 | PC.NURSE ---
ultrasound at bedside.
--- NOTE | 2023-04-12 09:44 | EXP.PULM.CON ---
History of Present Illness History of present illness: Mr. Kwan is a 57-year-old male history of tobacco abuse, severe sleep apnea AHI- 57, presented to the hospital over the weekend complaining of vomiting and dizziness he had admission hospital denies any chest pain or shortness of breath. Patient was admitted and was being managed for acute kidney injury on elevated troponins. [facility] Disclaimer: The information contained in this section may have been updated after the patient was seen, as this information can be updated by other users. Medical History (Updated 04/12/23 @ 10:50 by Benja Shaw MD) Abnormal echocardiogram Acute respiratory failure with hypoxia and hypercarbia Arthritis CAD (coronary atherosclerotic disease) COPD (chronic obstructive pulmonary disease) Dyspnea Edema of both lower extremities HLD (hyperlipidemia) HTN (hypertension) Obstructive sleep apnea syndrome Pneumonia Polycythemia vera Polycythemia vera Sinus tachycardia Witnessed episode of apnea Surgical History History of heart artery stent Hx of tonsillectomy Family History Other Cancer Diabetes Heart attack Hyperlipidemia Hypertension Social History Smoking Status: Current every day smoker tobacco type: cigarettes packs per day: 1 alcohol intake: current substance use type: denies use current occupational status: employed Travel in the last 8 weeks: None Review of Systems Constitutional Constitutional: Reports anorexia, Reports body ache(s) and Reports fatigue Eyes Eyes: Denies eye discharge, Denies dry eyes, Denies irritation and Denies itchy eyes ENT Ears, Nose, Mouth, and Throat: Denies epistaxis, Denies facial pain, Denies lip swelling and Denies throat swelling *Cardiovascular Cardiovascular: Reports dyspnea and Reports dyspnea on exertion *Respiratory Respiratory: Reports chest congestion, Reports cough, Reports dyspnea, Reports dyspnea on exertion, Reports excessive phlegm production and Reports wheezing *Gastrointestinal Gastrointestinal: Denies abdominal pain, Denies belching and Denies cramping *Musculoskeletal Musculoskeletal: Reports back pain, Reports myalgias and Reports other (No small joint swelling or Pain) Psychiatric Psychiatric: Denies homicidal ideation and Denies suicidal ideation Endocrine Endocrine: Reports fatigue and Denies heat intolerance Hematologic/Lymphatic Hematologic/Lymphatic: Denies easy bleeding and Denies lymphadenopathy Allergic/Immunologic Allergic/Immunologic: Denies itchy eyes, Denies lip swelling, Denies throat swelling and Reports wheezing Pulmonology Exam Inpatient Vital signs and Labs for Last 24 Hours: Temp Pulse Resp BP Pulse Ox O2 Del Method O2 Flow Rate 98 F 62 12 146/91 H 88 L Vapotherm 40 04/12/23 08:25 04/12/23 08:25 04/12/23 08:25 04/12/23 08:25 04/12/23 08:25 04/12/23 08:25 04/12/23 08:25 FiO2 90 04/12/23 08:25 Laboratory Results - last 24 hr 04/11/23 06:32: Hgb 18.8 H, RBC Morphology Normal 04/11/23 11:18: Specimen Source Right radial, O2 % 90% bipap 07/04, ABG pH 7.45, ABG pCO2 52.5 H, ABG pO2 41.7 L, ABG HCO3 35.3 H, ABG Total CO2 36.9 H, ABG O2 Saturation 80 L*, ABG Base Excess 11.2 H, Ben Test Acceptable, Vent Rate 22 04/11/23 14:48: APTT 53.6 H* 04/11/23 16:37: POC Glucose 213 H 04/11/23 19:47: POC Glucose 202 H 04/11/23 21:35: APTT 46.9 H 04/12/23 05:40: WBC 15.9 H, RBC 5.38, Hgb 17.4, Hct 54.0 H, MCV 100.2 H, MCH 32.4 H, MCHC 32.3, RDW 14.9, Plt Count 147, MPV 8.9, Neut % (Auto) 87.1 H, Lymph % (Auto) 2.3 L, [place] % (Auto) 10.4 H, Eos % (Auto) 0.0 L, Baso % (Auto) 0.1, Neut # (Auto) 13.9 H, Lymph # (Auto) 0.4 L, [place] # (Auto) 1.7 H, Eos # (Auto) 0.0, Baso # (Auto) 0.0, Total Counted 100, Neutrophils % (Manual) 87 H, Band Neutrophils % 4.0, Lymphocytes % (Manual) 4 L, Monocy
--- NOTE | 2023-04-12 09:45 | EXP.SURG.PN ---
Subjective Narrative: The patient states that he feels fine . He claims to be ready to go home . Exam Data for Last 24 hours Vital signs and Labs for Last 24 Hours: Temp Pulse Resp BP Pulse Ox O2 Del Method O2 Flow Rate 98 F 62 12 146/91 H 88 L Vapotherm 40 04/12/23 08:25 04/12/23 08:25 04/12/23 08:25 04/12/23 08:25 04/12/23 08:25 04/12/23 08:25 04/12/23 08:25 FiO2 90 04/12/23 08:25 Laboratory Results - last 24 hr 04/11/23 06:32: Hgb 18.8 H, RBC Morphology Normal 04/11/23 11:18: Specimen Source Right radial, O2 % 90% bipap 07/04, ABG pH 7.45, ABG pCO2 52.5 H, ABG pO2 41.7 L, ABG HCO3 35.3 H, ABG Total CO2 36.9 H, ABG O2 Saturation 80 L*, ABG Base Excess 11.2 H, Ben Test Acceptable, Vent Rate 22 04/11/23 14:48: APTT 53.6 H* 04/11/23 16:37: POC Glucose 213 H 04/11/23 19:47: POC Glucose 202 H 04/11/23 21:35: APTT 46.9 H 04/12/23 05:40: WBC 15.9 H, RBC 5.38, Hgb 17.4, Hct 54.0 H, MCV 100.2 H, MCH 32.4 H, MCHC 32.3, RDW 14.9, Plt Count 147, MPV 8.9, Neut % (Auto) 87.1 H, Lymph % (Auto) 2.3 L, [place] % (Auto) 10.4 H, Eos % (Auto) 0.0 L, Baso % (Auto) 0.1, Neut # (Auto) 13.9 H, Lymph # (Auto) 0.4 L, [place] # (Auto) 1.7 H, Eos # (Auto) 0.0, Baso # (Auto) 0.0, Total Counted 100, Neutrophils % (Manual) 87 H, Band Neutrophils % 4.0, Lymphocytes % (Manual) 4 L, Monocytes % (Manual) 5, Platelet Estimate Slight decrease, Hypochromasia 1+, Macrocytosis 1+, APTT 65.1 H* D, Sodium 132 L, Potassium 3.9, Chloride 90 L, Carbon Dioxide 40 H, Anion Gap 5.9, BUN 41 H, Creatinine 0.90, Estimated Creat Clear 127, Estimated GFR 87, Est GFR ( Amer) 106 D, Glucose 214 H, Calcium 7.4 L 04/12/23 05:48: POC Glucose 200 H I & O for Last 24 hours: Intake & Output 04/09/23 04/10/23 04/11/23 04/12/23 11:59 11:59 11:59 11:59 Intake Total 620 / 620 746 / 746 1460 / 1460 Output Total 200 / 200 1150 / 1150 2725 / 2725 Balance 420 / 420 -404 / -404 -1265 / -1265 Weight 228 lb 9.91 oz 230 lb 9.656 oz 215 lb 9.793 oz Constitutional Constitutional: no acute distress *Routine Respiratory Exam Respiratory: Absent respiratory distress *Routine Cardiovascular Exam Cardiovascular: Absent tachycardia *Routine Abdominal Exam Abdominal: Absent tenderness Progress Note: A&P Assessment and plan (1) SAUD (acute kidney injury): Status: Acute (2) Nausea & vomiting: Problem details: Forwarded from Dr. Hernadez's note: (Re: CT images) - there is a very slight amount of inflammation of the gallbladder. This was an incidental finding, and CT scan would not be the most helpful imaging modality for diagnosing cholelithiasis or cholecystitis....He is on antibiotics for pneumonia, and this would also cover if he truly does have cholecystitis. He does have a leukocytosis today, but I would attribute this to his IV steroids. Any gallbladder issues were probably be secondary to his prominent right lower lobe pneumonia and NSTEMI, and if ultrasound points to gallbladder pathology, he may benefit from medical treatment with antibiotics and interval cholecystectomy once his other issues are resolved. Status: Acute Assessment and plan: The patient is not complaining of right upper quadrant pain (acute cholecystitis less likely) ...if he does develop evidence of acute cholecystitis warranting surgical intervention he will require transfer to tertiary facility secondary to his comorbid conditions. Follow-up right upper quadrant ultrasound (3) Non-ST elevation [place] (NSTEMI): Status: Acute (4) Acute dehydration: Status: Acute (5) Polycythemia vera: Problem details: Awaiting evaluation by hematology oncology at [facility]. Status: Chronic (6) Obstructive sleep apnea syndrome: Status: Chronic (7) CAD (coronary atherosclerotic disease): Problem details: Recent stent procedure Status: Chronic
[2023-04-12 10:15] LABS: Alanine Aminotransferase 64 U/L (12-78); Albumin Level 2.9 g/dl (3.5-5.0); Albumin/Globulin Ratio 1.1 (1.1-1.8); Alkaline Phosphatase 80 U/L (38-126); Anion Gap 9.1 mEq/L (5-15); Aspartate Amino Transferase 46 U/L (17-59); Bilirubin,Total 1.3 mg/dl (0.2-1.3); Blood Urea Nitrogen 41 mg/dl (9-20); Calcium 7.5 mg/dl (8.4-10.2); Carbon Dioxide 37 mmol/L (22.0-30.0); Chloride 90 mmol/L (98-107); Creatinine Clearance Estimated 143 mL/min (50-200); Estimated Glomerular Filt Rate 100 ml/min (>60); GFR (African American) 121 ML/MIN (>60); Globulin 2.7 g/dL (1.3-3.2); Glucose 211 mg/dl (74-100); Potassium 4.1 mmoL/L (3.5-5.1); Sodium 132 mmol/L (136-145); Total Protein,Serum 5.6 g/dl (6.3-8.2)
--- NOTE | 2023-04-12 10:15 | EXP.CARD.PN ---
Subjective Subjective Date: 04/12/23 Time: 08:00 Principal diagnosis: SAUD, n/v, elevated trop Interval history: Increased oxygen demand noted, Morning labs reviewed. Patient denies chest pain. Pulmonary consult pending. Exam Data for Last 24 hours Vital signs and Labs for Last 24 Hours: Temp Pulse Resp BP Pulse Ox O2 Del Method O2 Flow Rate 98 F 62 12 146/91 H 88 L Vapotherm 40 04/12/23 08:25 04/12/23 08:25 04/12/23 08:25 04/12/23 08:25 04/12/23 08:25 04/12/23 08:25 04/12/23 08:25 FiO2 90 04/12/23 08:25 Laboratory Results - last 24 hr 04/11/23 11:18: Specimen Source Right radial, O2 % 90% bipap 07/04, ABG pH 7.45, ABG pCO2 52.5 H, ABG pO2 41.7 L, ABG HCO3 35.3 H, ABG Total CO2 36.9 H, ABG O2 Saturation 80 L*, ABG Base Excess 11.2 H, Ben Test Acceptable, Vent Rate 22 04/11/23 14:48: APTT 53.6 H* 04/11/23 16:37: POC Glucose 213 H 04/11/23 19:47: POC Glucose 202 H 04/11/23 21:35: APTT 46.9 H 04/12/23 05:40: WBC 15.9 H, RBC 5.38, Hgb 17.4, Hct 54.0 H, MCV 100.2 H, MCH 32.4 H, MCHC 32.3, RDW 14.9, Plt Count 147, MPV 8.9, Neut % (Auto) 87.1 H, Lymph % (Auto) 2.3 L, [place] % (Auto) 10.4 H, Eos % (Auto) 0.0 L, Baso % (Auto) 0.1, Neut # (Auto) 13.9 H, Lymph # (Auto) 0.4 L, [place] # (Auto) 1.7 H, Eos # (Auto) 0.0, Baso # (Auto) 0.0, Total Counted 100, Neutrophils % (Manual) 87 H, Band Neutrophils % 4.0, Lymphocytes % (Manual) 4 L, Monocytes % (Manual) 5, Platelet Estimate Slight decrease, Hypochromasia 1+, Macrocytosis 1+, APTT 65.1 H* D, Sodium 132 L, Potassium 3.9, Chloride 90 L, Carbon Dioxide 40 H, Anion Gap 5.9, BUN 41 H, Creatinine 0.90, Estimated Creat Clear 127, Estimated GFR 87, Est GFR ( Amer) 106 D, Glucose 214 H, Calcium 7.4 L 04/12/23 05:48: POC Glucose 200 H I & O for Last 24 hours: Intake & Output 04/09/23 04/10/23 04/11/23 04/12/23 23:59 23:59 23:59 23:59 Intake Total 800 / 850 1655 / 1655 371 / 371 Output Total 600 / 600 2950 / 2950 525 / 525 Balance 200 / 250 -1295 / -1295 -154 / -154 Weight 228 lb 6 oz 228 lb 9.91 oz 230 lb 9.656 oz 215 lb 9.793 oz Constitutional Constitutional: no acute distress *Routine Respiratory Exam Respiratory: Present rhonchi, wheezes and symmetric chest movement *Routine Cardiovascular Exam Cardiovascular: Present RRR, Normal S1 and Normal S2 *Routine Abdominal Exam Abdominal: Present soft and normoactive bowel sounds; Absent tenderness *Routine Extremities Exam Extremities: Present full ROM and normal capillary refill; Absent edema *Routine Skin Exam Skin: Present intact, dry and warm Detailed Neck Exam: Thyroids Thyroid: Absent bruit Progress Note: A&P Assessment and plan (1) SAUD (acute kidney injury): Status: Acute (2) Nausea & vomiting: Problem details: Forwarded from Dr. Hernadez's note: (Re: CT images) - there is a very slight amount of inflammation of the gallbladder. This was an incidental finding, and CT scan would not be the most helpful imaging modality for diagnosing cholelithiasis or cholecystitis....He is on antibiotics for pneumonia, and this would also cover if he truly does have cholecystitis. He does have a leukocytosis today, but I would attribute this to his IV steroids. Any gallbladder issues were probably be secondary to his prominent right lower lobe pneumonia and NSTEMI, and if ultrasound points to gallbladder pathology, he may benefit from medical treatment with antibiotics and interval cholecystectomy once his other issues are resolved. Status: Acute (3) Non-ST elevation [place] (NSTEMI): Status: Acute (4) Acute dehydration: Status: Acute (5) Polycythemia vera: Problem details: Awaiting evaluation by hematology oncology at [facility]. Status: Chronic (6) Obstructive sleep apnea syndrome: Status: Chronic (7) CAD (coronary atherosclerotic disease): Problem details: Recent stent procedure Status: Chronic Assessment and Plan Assessment and Plan for All
--- NOTE | 2023-04-12 10:22 | PC.NURSE ---
Asked patient wear BiPap, patient refuses, states, I'm not putting that back on my face . Vapotherm settings at 40L 100% O2. o2 sat at 83%. Pulm at bedside.
--- NOTE | 2023-04-12 10:54 | PC.NURSE ---
Pulmonology at bedside to discuss bronchoscopy and intubation to allow lung time to heal. 82% Vapotherm 40L 100%O2 heart rate 65, respirations 23.
--- NOTE | 2023-04-12 11:00 | EXP.PHA.CONS ---
Pharmacy Consult Date: 04/12/23 Time: 11:00 Referring provider: DR SHAW Reason for Consult:: VANCOMYCIN DOSING CONSULT Allergies Allergy/AdvReac Type Severity Reaction Status Date / Time acetaminophen [From Tylenol] Allergy Intermediate Rash Verified 02/17/23 10:26 Home Medications Medication Instructions Recorded Confirmed Type atorvastatin 20 mg tablet 20 mg PO HS Cholesterol 09/30/22 04/10/23 History furosemide 20 mg tablet (Lasix) 20 mg PO DAILY Fluid 09/30/22 04/09/23 History albuterol sulfate 90 mcg/actuation 2 puff inhalation Q4HP PRN 10/29/22 04/10/23 History aerosol inhaler (ProAir HFA) Shortness Of Breath blood-glucose meter (Blood Glucose #1 ea 01/15/23 04/10/23 Rx Monitoring kit) blood sugar diagnostic (Blood #50 ea 01/19/23 04/10/23 Rx Glucose Test strips) aspirin 325 mg tablet 325 mg PO DAILY Heart Health 04/09/23 04/09/23 History budesonide-formoterol HFA 80 1 inh inhalation BID Breathing 04/09/23 04/09/23 History mcg-4.5 mcg/actuation aerosol Problems inhaler (Symbicort) carvedilol 25 mg tablet 25 mg PO BID High Blood Pressure 04/09/23 04/09/23 History metformin 500 mg tablet 500 mg PO BIDWMEAL Diabetes 04/09/23 04/10/23 History ticagrelor 90 mg tablet (Brilinta) 90 mg PO BID Platelet Inhibitor 04/09/23 04/09/23 History ipratropium 0.5 mg-albuterol 3 mg 3 ml inhalation Q4HP PRN Shortness 04/10/23 04/10/23 History (2.5 mg base)/3 mL nebulization Of Breath soln lisinopril 40 mg tablet 40 mg PO DAILY High Blood Pressure 04/10/23 04/09/23 History New Prescriptions to Start Prescriptions: Height: 1.83 m Weight: 97.8 kg Laboratory Results:: Laboratory Results - last 24 hr 04/11/23 11:18: Specimen Source Right radial, O2 % 90% bipap 18/10, ABG pH 7.45, ABG pCO2 52.5 H, ABG pO2 41.7 L, ABG HCO3 35.3 H, ABG Total CO2 36.9 H, ABG O2 Saturation 80 L*, ABG Base Excess 11.2 H, Ben Test Acceptable, Vent Rate 22 04/11/23 14:48: APTT 53.6 H* 04/11/23 16:37: POC Glucose 213 H 04/11/23 19:47: POC Glucose 202 H 04/11/23 21:35: APTT 46.9 H 04/12/23 05:40: WBC 15.9 H, RBC 5.38, Hgb 17.4, Hct 54.0 H, MCV 100.2 H, MCH 32.4 H, MCHC 32.3, RDW 14.9, Plt Count 147, MPV 8.9, Neut % (Auto) 87.1 H, Lymph % (Auto) 2.3 L, [place] % (Auto) 10.4 H, Eos % (Auto) 0.0 L, Baso % (Auto) 0.1, Neut # (Auto) 13.9 H, Lymph # (Auto) 0.4 L, [place] # (Auto) 1.7 H, Eos # (Auto) 0.0, Baso # (Auto) 0.0, Total Counted 100, Neutrophils % (Manual) 87 H, Band Neutrophils % 4.0, Lymphocytes % (Manual) 4 L, Monocytes % (Manual) 5, Platelet Estimate Slight decrease, Hypochromasia 1+, Macrocytosis 1+, APTT 65.1 H* D, Sodium 132 L 04/12/23 05:40: Sodium 132 L, Potassium 3.9 04/12/23 05:40: Potassium 4.1, Chloride 90 L 04/12/23 05:40: Chloride 90 L, Carbon Dioxide 40 H 04/12/23 05:40: Carbon Dioxide 37 H, Anion Gap 5.9 04/12/23 05:40: Anion Gap 9.1, BUN 41 H 04/12/23 05:40: BUN 41 H, Creatinine 0.90 04/12/23 05:40: Creatinine 0.80, Estimated Creat Clear 127 04/12/23 05:40: Estimated Creat Clear 143, Estimated GFR 87 04/12/23 05:40: Estimated GFR 100, Est GFR ( Amer) 106 D 04/12/23 05:40: Est GFR ( Amer) 121, Glucose 214 H 04/12/23 05:40: Glucose 211 H, Calcium 7.4 L 04/12/23 05:40: Calcium 7.5 L, Total Bilirubin 1.3, AST 46 D, ALT 64, Alkaline Phosphatase 80, Total Protein 5.6 L D, Albumin 2.9 L, Globulin 2.7, Albumin/Globulin Ratio 1.1 04/12/23 05:48: POC Glucose 200 H Medical History: Medical History (Updated 04/12/23 @ 10:50 by Benja Shaw MD) Abnormal echocardiogram Acute respiratory failure with hypoxia and hypercarbia Arthritis CAD (coronary atherosclerotic disease) COPD (chronic obstructive pulmonary disease) Dyspnea Edema of both lower extremities HLD (hyperlipidemia) HTN (hypertension) Obstructive sleep apnea syndrome Pneumonia Polycythemia vera Polycythemia vera Sinus tachycardia Witnessed episode of apnea Assessment and Plan Assessment and plan all Dx Assessment and Plan for all problems:: Pha
--- NOTE | 2023-04-12 11:27 | XR_ITS ---
FINAL REPORT CLINICAL HISTORY: progression COMPARISON: 04/11/2023 FINDINGS: A single portable view of the chest was obtained. The heart size and pulmonary vascularity are within normal limits. The mediastinum is within normal limits. Worsening bibasilar opacities are consistent with worsening pneumonia or atelectasis. The bony thorax is intact. IMPRESSION: Worsening pneumonia or atelectasis. Reviewed, Interpreted and Dictated by Cody Ge III, MD Transcribed by Meliza Morales Authenticated and . [facility]
--- NOTE | 2023-04-12 11:28 | EXP.PN ---
Subjective *Date: 04/12/23 *Time: 11:28 Exam Data for Last 24 hours Vital signs and Labs for Last 24 Hours: Temp Pulse Resp BP Pulse Ox O2 Del Method O2 Flow Rate 98.1 F 67 21 155/100 H 83 L Vapotherm 40 04/12/23 11:17 04/12/23 10:48 04/12/23 10:48 04/12/23 10:48 04/12/23 10:48 04/12/23 10:56 04/12/23 10:48 FiO2 100 04/12/23 10:48 Laboratory Results - last 24 hr 04/11/23 11:18: Specimen Source Right radial, O2 % 90% bipap 07/04, ABG pH 7.45, ABG pCO2 52.5 H, ABG pO2 41.7 L, ABG HCO3 35.3 H, ABG Total CO2 36.9 H, ABG O2 Saturation 80 L*, ABG Base Excess 11.2 H, Ben Test Acceptable, Vent Rate 22 04/11/23 14:48: APTT 53.6 H* 04/11/23 16:37: POC Glucose 213 H 04/11/23 19:47: POC Glucose 202 H 04/11/23 21:35: APTT 46.9 H 04/12/23 05:40: WBC 15.9 H, RBC 5.38, Hgb 17.4, Hct 54.0 H, MCV 100.2 H, MCH 32.4 H, MCHC 32.3, RDW 14.9, Plt Count 147, MPV 8.9, Neut % (Auto) 87.1 H, Lymph % (Auto) 2.3 L, [place] % (Auto) 10.4 H, Eos % (Auto) 0.0 L, Baso % (Auto) 0.1, Neut # (Auto) 13.9 H, Lymph # (Auto) 0.4 L, [place] # (Auto) 1.7 H, Eos # (Auto) 0.0, Baso # (Auto) 0.0, Total Counted 100, Neutrophils % (Manual) 87 H, Band Neutrophils % 4.0, Lymphocytes % (Manual) 4 L, Monocytes % (Manual) 5, Platelet Estimate Slight decrease, Hypochromasia 1+, Macrocytosis 1+, APTT 65.1 H* D, Sodium 132 L 04/12/23 05:40: Sodium 132 L, Potassium 3.9 04/12/23 05:40: Potassium 4.1, Chloride 90 L 04/12/23 05:40: Chloride 90 L, Carbon Dioxide 40 H 04/12/23 05:40: Carbon Dioxide 37 H, Anion Gap 5.9 04/12/23 05:40: Anion Gap 9.1, BUN 41 H 04/12/23 05:40: BUN 41 H, Creatinine 0.90 04/12/23 05:40: Creatinine 0.80, Estimated Creat Clear 127 04/12/23 05:40: Estimated Creat Clear 143, Estimated GFR 87 04/12/23 05:40: Estimated GFR 100, Est GFR ( Amer) 106 D 04/12/23 05:40: Est GFR ( Amer) 121, Glucose 214 H 04/12/23 05:40: Glucose 211 H, Calcium 7.4 L 04/12/23 05:40: Calcium 7.5 L, Total Bilirubin 1.3, AST 46 D, ALT 64, Alkaline Phosphatase 80, Total Protein 5.6 L D, Albumin 2.9 L, Globulin 2.7, Albumin/Globulin Ratio 1.1 04/12/23 05:48: POC Glucose 200 H I & O for Last 24 hours: Intake & Output 04/09/23 04/10/23 04/11/23 04/12/23 23:59 23:59 23:59 23:59 Intake Total 800 / 850 1655 / 1655 371 / 371 Output Total 600 / 600 2950 / 2950 525 / 525 Balance 200 / 250 -1295 / -1295 -154 / -154 Weight 103.589 kg 103.7 kg 104.6 kg 97.8 kg Assessment and Plan *Assessment and plan (1) Acute respiratory failure with hypoxia and hypercarbia: Status: Acute Category: Medical Code(s): J96.01 - Acute respiratory failure with hypoxia; J96.02 - Acute respiratory failure with hypercapnia Plan Case discussed with pulmonary, patient was recommended intubation and he has refused it. When I rounded on patient this morning, he also had taken his Vapotherm off and then put it on inn my presence, counselled patient on compliance with O2 therapy, overall the patient has poor insight into his health and not very compliant. We will continue to spiritual counselor the patient
--- NOTE | 2023-04-12 12:01 | PC.NURSE ---
Called care management for living will initiation.
[2023-04-12 12:05] LABS: Procalcitonin 0.166 ng/mL (0.0-2.0)
--- NOTE | 2023-04-12 12:12 | PC.NURSE ---
notified anesthesia patient ready to be intubated. Bronch consent signed.
[2023-04-12 12:25] LABS: POC Glucose,Bedside 190 (70-110)
--- NOTE | 2023-04-12 13:00 | PC.NURSE ---
Heparin stopped per Augastina with Cards.
--- NOTE | 2023-04-12 13:14 | PC.NURSE ---
Intubate with 8inch tube 22@ lip. 21@gum.
--- NOTE | 2023-04-12 13:19 | P.PCN_ITS ---
[facility] Procedure Note Date: 04/12/23 Time: 13:00 Procedure Note:: Called to 219 for intubation at the bedside for respiratory failure and subsequesnt Bronchoscopy. SpO2 86% w/O2 via NC. Pre-oxygenated w/ambu x 5 minutes. SpO2 up to 90% w/peep valve at [id number]. Ordered Etomidate 20mg IVP and Succinylcholine 100mg IVP by RN. DL x 1 w/Mac 4. VC open. Intubation w/8.0 OETT. secured 20cm @ lip. Airway and vent management turned over to RT @ bedside. Will continue to follow as needed.
--- NOTE | 2023-04-12 13:24 | EXP.ANES.CKL ---
[facility] Disclaimer: The information contained in this section may have been updated after the patient was seen, as this information can be updated by other users. Medical History (Updated 04/12/23 @ 10:50 by Benja Shaw MD) Abnormal echocardiogram Acute respiratory failure with hypoxia and hypercarbia Arthritis CAD (coronary atherosclerotic disease) COPD (chronic obstructive pulmonary disease) Dyspnea Edema of both lower extremities HLD (hyperlipidemia) HTN (hypertension) Obstructive sleep apnea syndrome Pneumonia Polycythemia vera Polycythemia vera Sinus tachycardia Witnessed episode of apnea Surgical History History of heart artery stent Hx of tonsillectomy Family History Other Cancer Diabetes Heart attack Hyperlipidemia Hypertension Social History Smoking Status: Current every day smoker tobacco type: cigarettes packs per day: 1 alcohol intake: current substance use type: denies use current occupational status: employed Travel in the last 8 weeks: None [facility] Anesthesia Checklist Patient Identification Patient Identification: Arm Band and Verbal (Name & ) Structural Data Admitted From: Inpatient (Rm [id number]) Planned Operative Procedure/s: Emergency intubation Consent for Planned Operative Procedure(s) Verified: Yes Verified Documents: Surgical Consent and History and Physical NPO Status Verified Time NPO: 00:00 Chart Verification Results Verified: CBC, BMP, ECG and Chest Xray Additional verifications Patient : No Anesthesia Reactions: No Hx Blood Transfusions: No Blood Transfusion Reaction: No Cephalosporin Allergy: No Previous Colonoscopy: No Cardiovascular Assessment Heart Sounds: S1 & S2 Pulse Rhythm: Irregular Peripheral Edema: No Respiratory Assessment Decreased throughout. Pt. dyspnic and hypoxic.: Breath Sounds: Diminished Airway Assessment Mallampati Score:: Class II C-Spine Mobility Assessed: Yes TMJ Mobility Assessed: Yes Dentition: Poor Dentition (Nothing loose per pt.) Neurological Assessment Level of Consciousness: Awake, Alert, Appropriate and Follows Commands Hx Seizures: No Numbness or tingling in extremities: No Anesthesia Plan Anesthesia Risk discussed: Yes Anesthesia Plan: Verified ASA Class: IV (Emergent) Anesthesia Type: IV sedation
--- NOTE | 2023-04-12 13:27 | EXP.ANES.I ---
[facility] Anesthesia Record Part I Anesthesia Record I Intake, IV Amount: 20 Hydration: Adequate Estimated blood loss (mL): 0 Urine output (mL): 0 Blood Products used (#): none Blood Pressure: 177/103 SaO2: 93 Pulse Rate: 98 Airway Patency: Patent Respiratory Rate: 10 Temperature: 97.9 F Patient is:: Awake (Aggitated), Intubated and Ventilator Stable to PACU at:: 13:29
--- NOTE | 2023-04-12 13:30 | XR_ITS ---
FINAL REPORT CLINICAL HISTORY: intubation COMPARISON: 2 hours prior FINDINGS: A single portable view of the chest was obtained. ET tube is present with the tip approximately at T4. NG tube is present and extends below the diaphragm. The heart size and pulmonary vascularity are within normal limits. The mediastinum is within normal limits. Worsening bibasilar pneumonia or atelectasis. There are probable small pleural effusions. The bony thorax is intact. IMPRESSION: Worsening bibasilar pneumonia or atelectasis with probable small pleural effusions. ET tube present, tip at approximately T4. Reviewed, Interpreted and Dictated by Cody Ge III, MD Transcribed by Meliza Morales Authenticated and [facility]
--- NOTE | 2023-04-12 14:00 | XR_ITS ---
FINAL REPORT CLINICAL HISTORY: NG TUBE PLACEMENT COMPARISON: None FINDINGS: SINGLE VIEW ABDOMEN A single view of the abdomen was obtained. NG tube is present with the tip in the body of the stomach. There is a nonobstructive bowel gas pattern. No abnormal calcifications are noted. IMPRESSION: NG tube present, tip in the body of the stomach. Reviewed, Interpreted and Dictated by Cody Ge III, MD Transcribed by Meliza Morales Authenticated and [facility]
--- NOTE | 2023-04-12 14:31 | PC.NURSE ---
Dr. Shaw at bedside for Bronch.
[2023-04-12 14:42] LABS: ABG Base Excess 9.8 mmol/L (-2.4-2.3); ABG HCO3 34.2 mmhg (22.0-26.0); ABG Oxygen Saturation 87 % (90-100); ABG PH 7.43 mmol/L (7.35-7.45); ABG PO2 53.6 mmhg (80-100); ABG TCO2 35.8 mmhg (23-27)
[2023-04-12 14:48] LABS: Microscopic,Cath URINE MICROSCOPIC (MICROSCOPIC)
[2023-04-12 14:49] LABS: Appearance,Urine/Cath CLEAR (Clear); Bilirubin,Cath Negative (Negative); Blood, Urine/Cath Negative (Negative); Color,Urine/Cath YELLOW (Yellow); Glucose,Urine/Cath (UA) Negative (Negative); Ketones,Urine/Cath Negative (Negative); Leukocyte Esterase,Cath Negative (Negative); Nitrate,Cath Negative (Negative); Protein,Urine/Cath 1+ (Negative); Urobilinogen,Cath >=8.0 EU/dl (0.2)
[2023-04-12 15:34] LABS: ABG PCO2 52.9 mmhg (35.0-45.0); Allen's Test ACCEPTABLE; Oxygen 100 %; PEEP 14; Source Right Radial; Tidal Volume 420; Vent Rate 20
--- NOTE | 2023-04-12 15:36 | EXP.BRONCH.N ---
Procedure: Date: 04/12/23 Patient Date of :: 1965 Procedure Performed:: Bronchoscopy airway examination bronchoalveolar lavage Indications:: Acute hypoxic respiratory failure Performing Provider:: Benja Shaw MD Referring Provider:: Dr. Blue Stokes Sedation:: Patient on propofol and fentanyl drips for sedation while intubated. He received additional 6 mg of IV Ativan to facilitate the procedure Procedure:: Bronchoscopy airway examination bronchoalveolar lavage. Therapeutic bronchoscopy was advanced the ET tube and airway surveillance performed. Copious amount of mucoid secretions were noted in the right mainstem bronchus that were suctioned. No additional mucous plugging/bleeding/old blood clots noted. Mucoid secretions were also noted in the left lower lobe that were suctioned. Right middle lobe lateral segment and airway appear to be narrowed by less than 50% on examination. No other obvious airway abnormalities noted. Bronchoalveolar lavage was performed in the right lower lobe with a total of 60 cc of normal saline instilled with return of 25 cc back BAL fluid was sent for cell count differential along with bacterial stain and cultures. No other cultures were ordered. Patient tolerated the procedure well. Follow the results Findings:: Please see the procedure note Recommendations:: Please see the procedure note and progress note from today Complications:: No acute immediate complication Estimated blood obtained (mL): 0
[2023-04-12 17:17] LABS: POC Glucose,Bedside 194 (70-110)
--- NOTE | 2023-04-12 17:53 | EXP.PN ---
Subjective *Date: 04/12/23 *Time: 17:53 Interval history: Patient was seen and evaluated at the bedside. He is on vapotherm, denies chest pain, nausea, vomiting, abdominal pain. He is satting in 80%s on vapoatherm, he is also not very compliant. Exam Data for Last 24 hours Vital signs and Labs for Last 24 Hours: Temp Pulse Resp BP Pulse Ox O2 Del Method O2 Flow Rate 97.9 F 59 L 20 106/60 L 94 L Mechanical Ventilation 40 04/12/23 17:48 04/12/23 17:48 04/12/23 17:48 04/12/23 17:48 04/12/23 17:48 04/12/23 17:48 04/12/23 10:48 FiO2 100 04/12/23 17:48 Laboratory Results - last 24 hr 04/11/23 19:47: POC Glucose 202 H 04/11/23 21:35: APTT 46.9 H 04/12/23 05:40: WBC 15.9 H, RBC 5.38, Hgb 17.4, Hct 54.0 H, MCV 100.2 H, MCH 32.4 H, MCHC 32.3, RDW 14.9, Plt Count 147, MPV 8.9, Neut % (Auto) 87.1 H, Lymph % (Auto) 2.3 L, [place] % (Auto) 10.4 H, Eos % (Auto) 0.0 L, Baso % (Auto) 0.1, Neut # (Auto) 13.9 H, Lymph # (Auto) 0.4 L, [place] # (Auto) 1.7 H, Eos # (Auto) 0.0, Baso # (Auto) 0.0, Total Counted 100, Neutrophils % (Manual) 87 H, Band Neutrophils % 4.0, Lymphocytes % (Manual) 4 L, Monocytes % (Manual) 5, Platelet Estimate Slight decrease, Hypochromasia 1+, Macrocytosis 1+, APTT 65.1 H* D, Sodium 132 L 04/12/23 05:40: Sodium 132 L, Potassium 3.9 04/12/23 05:40: Potassium 4.1, Chloride 90 L 04/12/23 05:40: Chloride 90 L, Carbon Dioxide 40 H 04/12/23 05:40: Carbon Dioxide 37 H, Anion Gap 5.9 04/12/23 05:40: Anion Gap 9.1, BUN 41 H 04/12/23 05:40: BUN 41 H, Creatinine 0.90 04/12/23 05:40: Creatinine 0.80, Estimated Creat Clear 127 04/12/23 05:40: Estimated Creat Clear 143, Estimated GFR 87 04/12/23 05:40: Estimated GFR 100, Est GFR ( Amer) 106 D 04/12/23 05:40: Est GFR ( Amer) 121, Glucose 214 H 04/12/23 05:40: Glucose 211 H, Calcium 7.4 L 04/12/23 05:40: Calcium 7.5 L, Total Bilirubin 1.3, AST 46 D, ALT 64, Alkaline Phosphatase 80, Total Protein 5.6 L D, Albumin 2.9 L, Globulin 2.7, Albumin/Globulin Ratio 1.1, Procalcitonin 0.166 04/12/23 05:48: POC Glucose 200 H 04/12/23 11:43: Specimen Source Right radial, O2 % 100, ABG pH 7.43, ABG pCO2 52.9 H, ABG pO2 53.6 L, ABG HCO3 34.2 H, ABG Total CO2 35.8 H, ABG O2 Saturation 87 L*, ABG Base Excess 9.8 H, Ben Test Acceptable, Vent Rate 20, Tidal Volume 420, PEEP 14 04/12/23 12:18: POC Glucose 190 H 04/12/23 14:15: Urine Color Yellow, Urine Appearance Clear, Urine pH 7.0, Ur Specific [place] 1.010, Urine Protein 1+, Urine Glucose (UA) Negative, Urine Ketones Negative, Urine Blood Negative, Urine Nitrate Negative, Urine Bilirubin Negative, Urine Urobilinogen >=8.0, Ur Leukocyte Esterase Negative, Urine RBC None, Urine WBC None, Ur Squamous Epith Cells None 04/12/23 16:55: POC Glucose 194 H I & O for Last 24 hours: Intake & Output 04/09/23 04/10/23 04/11/23 04/12/23 23:59 23:59 23:59 23:59 Intake Total 800 / 850 1655 / 1655 866.028 / 866.028 Output Total 600 / 600 2950 / 2950 1425 / 1425 Balance 200 / 250 -1295 / -1295 -558.972 / -558.972 Weight 103.589 kg 103.7 kg 104.6 kg 97.8 kg Narrative: patient seen at 9.30AM Constitutional Constitutional: no acute distress *Routine HEENT Exam Head: Present normocephalic Eye: Present EOMI and PERRL ENT: Present mucous membranes moist *Routine Neck Exam Neck: Present supple; Absent lymphadenopathy *Routine Respiratory Exam Comments: has b/l lung wheezing *Routine Cardiovascular Exam Cardiovascular: Present RRR *Routine Abdominal Exam Abdominal: Present soft and normoactive bowel sounds; Absent tenderness *Routine Extremities Exam Extremities: Absent cyanosis, clubbing or edema *Routine Skin Exam Skin: Present warm; Absent rash *Routine Neurological Exam Neurological: Present alert and oriented X3 Assessment and Plan *Assessment and plan (1) SAUD (acute kidney injury): Status: Acute Category: Medical Code(s): N17.9 - Acute kidney failure, unspecified (2) Nausea & vomiting: Problem
--- NOTE | 2023-04-12 18:08 | PC.NURSE ---
Pt health surrogate at bedside. She asks, has be done anything . Advised her we have him sedated and right now we don't want him to do anything, his lung needs to rest and heal because he has a collapsed lung. She states, four days. you only have for days and hes coming off. that's his wishes and he's coming off in four days no matter what. power of senior drafter . The surrogate is not the patients POA, the patient does not have a POA.
--- NOTE | 2023-04-12 18:46 | PC.NURSE ---
Initially, patient fighting vent and pulling an lines/tubes. Mittens applied to hands bilaterally.
[2023-04-12 19:53] LABS: POC Glucose,Bedside 178 (70-110)
--- NOTE | 2023-04-12 21:21 | PC.NURSE ---
Educated family regarding continuous monitoring, sedation gtt, antibx, ventilator management, and current POC. Answered all questions at this time. Family verbalized understanding and appreciation for education.
[2023-04-13] VITALS (41 sets, daily range): BP systolic 92–185; BP diastolic 52–107; PULSE 40–61; RESP 13–20; TEMP 36.7–37.3; O2SAT 90–100; BMI 30.1
--- NOTE | 2023-04-13 03:16 | PC.NURSE ---
RESP NOTE: Decrease PEEP to [address] Shaw
--- NOTE | 2023-04-13 04:41 | PC.NURSE ---
Pt mechanically ventilated on AC (tidal volume 420, FiO2 100%, PEEP 16 then 14, RR 20) setting, 21 at the lip, SpO2 95-98% throughout shift. Sedated with fentanyl and propofol gtt, fentanyl gtt stopped at 0400, RASS -2, very difficult to arouse. Pt did not make any attempts to remove any invasive lines, mittens on at start of shift and assessed every hour. Pt turned Q2 hr, pt tolerated well, SpO2 > 94%. VSS stable, HR 46-52 bpm, afebrile. at bedside and educated interventions and current POC.
--- NOTE | 2023-04-13 06:12 | PC.WOUNDNOTE ---
Documented in bio physical. Blanchable, turn Q2 hr turns and cleaned with soap and water.
[2023-04-13 06:18] LABS: POC Glucose,Bedside 166 (70-110)
[2023-04-13 06:32] LABS: Basophils % 0.1 % (0.1-2.0); Eosinophils % 0.1 % (0.1-12.0); Hematocrit 51.2 % (42.0-52.0); Lymphocytes # 0.5 K/mm3 (0.7-4.5); Lymphocytes % 2.7 % (10-50); Mean Corpuscular HGB Conc 33.2 g/dL (31.8-35.4); Mean Corpuscular Hemoglobin 32.6 pg (27.0-31.2); Mean Corpuscular Volume 98.4 fl (80-94); Mean Platelet Volume 8.7 fl (7.4-10.4); Monocytes # 1.8 K/mm3 (0.1-1.0); Monocytes % 10.9 % (1.7-9.3); Neutrophils # 14.3 K/mm3 (1.8-7.8); Neutrophils % 86.2 % (37.0-80.0); Platelet Count 158 K/mm3 (142-424); Red Blood Count 5.21 M/mm3 (4.60-6.20); Red Cell Distribution Width 15.1 % (11.5-17.5); White Blood Count 16.6 K/mm3 (4.8-10.8)
[2023-04-13 06:35] LABS: MANUAL DIFFERENTIAL MANUAL DIFFERENTIAL (MANUAL DIFF)
[2023-04-13 06:42] LABS: Chloride 97 mmol/L (98-107)
[2023-04-13 06:43] LABS: Potassium 3.9 mmoL/L (3.5-5.1); Sodium 134 mmol/L (136-145)
[2023-04-13 06:46] LABS: Anion Gap 4.9 mEq/L (5-15); Blood Urea Nitrogen 31 mg/dl (9-20); Calcium 7.1 mg/dl (8.4-10.2); Carbon Dioxide 36 mmol/L (22.0-30.0); Creatinine Clearance Estimated 168 mL/min (50-200); Estimated Glomerular Filt Rate 117 ml/min (>60); GFR (African American) 141 ML/MIN (>60); Glucose 187 mg/dl (74-100)
[2023-04-13 07:12] LABS: Lymphocytes % 3 % (10-50); Monocytes % 4 % (2-9); Neutrophils % 92 % (42-76); Platelet Estimate Normal; Total Cells Counted 100
[2023-04-13 07:13] LABS: Hypochromasia 1+; Macrocytosis 1+
--- NOTE | 2023-04-13 07:23 | EXP.SURG.PN ---
Subjective Narrative: Patient intubated yesterday. Prior to intubation the patient stated that he had no abdominal pain (specifically no right upper quadrant pain). Exam Data for Last 24 hours Vital signs and Labs for Last 24 Hours: Temp Pulse Resp BP Pulse Ox O2 Del Method O2 Flow Rate 98.3 F 50 L 20 164/98 H 96 Mechanical Ventilation 100 04/13/23 04:00 04/13/23 06:58 04/13/23 06:58 04/13/23 06:58 04/13/23 06:58 04/13/23 06:58 04/12/23 20:20 FiO2 100 04/13/23 06:58 Laboratory Results - last 24 hr 04/12/23 05:40: Total Counted 100, Neutrophils % (Manual) 87 H, Band Neutrophils % 4.0, Lymphocytes % (Manual) 4 L, Monocytes % (Manual) 5, Platelet Estimate Slight decrease, Hypochromasia 1+, Macrocytosis 1+, APTT 65.1 H* D, Sodium 132 L, Potassium 4.1, Chloride 90 L, Carbon Dioxide 37 H, Anion Gap 9.1, BUN 41 H, Creatinine 0.80, Estimated Creat Clear 143, Estimated GFR 100, Est GFR ( Amer) 121, Glucose 211 H, Calcium 7.5 L, Total Bilirubin 1.3, AST 46 D, ALT 64, Alkaline Phosphatase 80, Total Protein 5.6 L D, Albumin 2.9 L, Globulin 2.7, Albumin/Globulin Ratio 1.1, Procalcitonin 0.166 04/12/23 11:43: Specimen Source Right radial, O2 % 100, ABG pH 7.43, ABG pCO2 52.9 H, ABG pO2 53.6 L, ABG HCO3 34.2 H, ABG Total CO2 35.8 H, ABG O2 Saturation 87 L*, ABG Base Excess 9.8 H, Ben Test Acceptable, Vent Rate 20, Tidal Volume 420, PEEP 14 04/12/23 12:18: POC Glucose 190 H 04/12/23 14:15: Urine Color Yellow, Urine Appearance Clear, Urine pH 7.0, Ur Specific [place] 1.010, Urine Protein 1+, Urine Glucose (UA) Negative, Urine Ketones Negative, Urine Blood Negative, Urine Nitrate Negative, Urine Bilirubin Negative, Urine Urobilinogen >=8.0, Ur Leukocyte Esterase Negative, Urine RBC None, Urine WBC None, Ur Squamous Epith Cells None 04/12/23 16:55: POC Glucose 194 H 04/12/23 19:46: POC Glucose 178 H 04/13/23 05:58: POC Glucose 166 H 04/13/23 06:10: WBC 16.6 H, RBC 5.21, Hgb 17.0, Hct 51.2, MCV 98.4 H, MCH 32.6 H, MCHC 33.2, RDW 15.1, Plt Count 158, MPV 8.7, Neut % (Auto) 86.2 H, Lymph % (Auto) 2.7 L, [place] % (Auto) 10.9 H, Eos % (Auto) 0.1, Baso % (Auto) 0.1, Neut # (Auto) 14.3 H, Lymph # (Auto) 0.5 L, [place] # (Auto) 1.8 H, Eos # (Auto) 0.0, Baso # (Auto) 0.0, Total Counted 100, Neutrophils % (Manual) 92 H, Band Neutrophils % 1.0, Lymphocytes % (Manual) 3 L, Monocytes % (Manual) 4, Platelet Estimate Normal, Hypochromasia 1+, Macrocytosis 1+, Sodium 134 L, Potassium 3.9, Chloride 97 L, Carbon Dioxide 36 H, Anion Gap 4.9 L, BUN 31 H, Creatinine 0.70, Estimated Creat Clear 168, Estimated GFR 117, Est GFR ( Amer) 141, Glucose 187 H, Calcium 7.1 L I & O for Last 24 hours: Intake & Output 04/10/23 04/11/23 04/12/23 04/13/23 11:59 11:59 11:59 11:59 Intake Total 620 / 620 746 / 746 1460 / 1460 3109.646 / 3109.646 Output Total 200 / 200 1150 / 1150 2725 / 2725 2150 / 2150 Balance 420 / 420 -404 / -404 -1265 / -1265 959.646 / 959.646 Weight 228 lb 9.91 oz 230 lb 9.656 oz 215 lb 9.793 oz 222 lb 10.67 oz Constitutional Comments: Sedation status post intubation yesterday *Routine Respiratory Exam Respiratory: Present patient mechanically ventilated *Routine Cardiovascular Exam Cardiovascular: Present bradycardia *Routine Abdominal Exam Abdominal: Present soft Progress Note: A&P Assessment and plan (1) Thickening of wall of gallbladder: Status: Chronic Assessment and plan: 9 mm gallbladder wall and sludge noted per ultrasound yesterday. This is most likely an incidental finding more indicative of chronic changes as opposed to acute cholecystitis. The patient's repeat liver function studies (yesterday) revealed no abnormalities in terms of transaminases, alk phos, or bilirubin. In addition, prior to intubation the patient specifically denied right upper quadrant abdominal pain. His worsening leukocytosis is most likely secondary to pneumonia as opposed to acute cholecystitis. If additional evidence warranting potential
--- NOTE | 2023-04-13 07:53 | XR_ITS ---
FINAL REPORT CLINICAL HISTORY: post intuabtion COMPARISON: 04/12/2023 FINDINGS: SINGLE-VIEW CHEST The heart size is normal. The mediastinum is normal. Endotracheal tube tip terminates at T3. NG tube tip terminates below the diaphragm. There is improved aeration in the right lung. There is worsening left lung base atelectasis or pneumonia. There is no pneumothorax. IMPRESSION: Lines and tubes as above. Worsening left lung base atelectasis or pneumonia. Reviewed, Interpreted and Dictated by Cody Ge III, MD Transcribed by Leticia Rojas Authenticated and [facility]
[2023-04-13 08:04] LABS: ABG Base Excess 6.5 mmol/L (-2.4-2.3); ABG HCO3 31.1 mmhg (22.0-26.0); ABG Oxygen Saturation 97 % (90-100); ABG PCO2 49.9 mmhg (35.0-45.0); ABG PH 7.41 mmol/L (7.35-7.45); ABG PO2 88.6 mmhg (80-100); ABG TCO2 32.7 mmhg (23-27)
--- NOTE | 2023-04-13 08:06 | EXP.ACUTE.PN ---
Subjective *Date: 04/13/23 *Time: 15:20 Interval history: Patient is in No acute distress this morning. Continues to require mechanical ventilation. Adequate urine output. Afebrile overnight. Blood pressure marginally hypertensive. Family at bedside, updated of plan. Medical Exam Vital signs and Labs for Last 24 Hours: Vital Signs Temp Pulse Pulse Resp BP BP Pulse Ox 04/13/23 07:49 98.6 F 46 L 13 142/84 H 95 04/13/23 07:45 52 L 14 96 04/13/23 07:43 48 L 04/13/23 07:37 95 04/13/23 06:58 50 L 20 164/98 H 96 04/13/23 06:53 04/13/23 04:00 50 L 04/13/23 06:00 47 L 20 142/88 H 95 04/13/23 06:00 48 L 04/13/23 06:00 55 L 04/13/23 06:00 20 95 04/13/23 05:00 04/13/23 05:00 50 L 20 136/78 96 04/13/23 04:00 95 04/13/23 04:00 98.3 F 46 L 20 131/73 95 04/13/23 03:00 04/13/23 03:00 53 L 20 113/62 99 04/13/23 02:00 20 98 04/13/23 02:00 52 L 20 95/56 L 98 04/13/23 01:00 04/13/23 01:00 60 20 96/52 L 97 04/13/23 00:00 60 04/13/23 00:30 20 97 04/13/23 00:08 59 L 04/13/23 00:08 59 L 04/13/23 00:00 95 04/13/23 00:00 98.3 F 60 20 92/54 L 95 04/12/23 22:00 04/12/23 23:00 61 20 107/66 L 95 04/12/23 23:00 04/12/23 22:00 60 20 94/54 L 95 04/12/23 21:59 20 95 04/12/23 21:00 60 20 94/53 L 94 L 04/12/23 20:58 04/12/23 20:00 98.0 F 60 20 102/62 L 95 04/12/23 20:20 20 95 04/12/23 20:00 60 04/12/23 19:00 04/12/23 20:20 04/12/23 20:06 20 95 04/12/23 17:57 61 04/12/23 17:57 59 L 04/12/23 17:57 04/12/23 17:57 20 95 04/12/23 17:48 97.9 F 59 L 20 106/60 L 94 L 04/12/23 17:46 20 04/12/23 17:05 60 20 106/60 L 93 L 04/12/23 17:04 04/12/23 16:00 65 04/12/23 15:00 20 88 L 04/12/23 14:10 86 L 04/12/23 13:30 20 86 L 04/12/23 15:46 91 L 04/12/23 15:45 64 04/12/23 15:43 04/12/23 15:41 63 21 100/58 L 91 L 04/12/23 12:00 65 04/12/23 14:25 87 L 04/12/23 14:00 98.9 F 73 10 L 125/79 86 L 04/12/23 11:34 69 04/12/23 11:34 68 04/12/23 11:17 98.1 F 04/12/23 10:56 04/12/23 10:48 98.9 F 67 21 155/100 H 83 L 04/12/23 09:00 04/12/23 08:25 98 F 62 12 146/91 H 88 L 04/12/23 13:29 97.9 F 98 H 10 L 177/103 H O2 Del Method O2 Flow Rate FiO2 04/13/23 07:49 Mechanical Ventilation 100 04/13/23 07:45 Mechanical Ventilation 04/13/23 07:43 04/13/23 07:37 Mechanical Ventilation 100 04/13/23 06:58 Mechanical Ventilation 100 04/13/23 06:53 Mechanical Ventilation 04/13/23 04:00 04/13/23 06:00 Mechanical Ventilation 100 04/13/23 06:00 04/13/23 06:00 04/13/23 06:00 100 04/13/23 05:00 Mechanical Ventilation 04/13/23 05:00 Mechanical Ventilation 100 04/13/23 04:00 Mechanical Ventilation 100 04/13/23 04:00 Mechanical Ventilation 100 04/13/23 03:00 Mechanical Ventilation 04/13/23 03:00 Mechanical Ventilation 04/13/23 02:00 100 04/13/23 02:00 Mechanical Ventilation 100 04/13/23 01:00 Mechanical Ventilation 04/13/23 01:00 Mechanical Ventilation 100 04/13/23 00:00 04/13/23 00:30 100 04/13/23 00:08 04/13/23 00:08 04/13/23 00:00 Mechanical Ventilation 100 04/13/23 00:00 Mechanical Ventilation 100 04/12/23 22:00 100 04/12/23 23:00 Mechanical Ventilation 04/12/23 23:00 Mechanical Ventilation 04/12/23 22:00 Mechanical Ventilation 04/12/23 21:59 100 04/12/23 21:00 Mechanical Ventilation 04/12/23 20:58 Mechanical Ventilation 04/12/23 20:00 Mechanical Ventilation 100 04/12/23 20:20 100 100 04/12/23 20:00 04/12/23 19:00 Mechanical Ventilat
[2023-04-13 08:15] LABS: Allen's Test yes; Oxygen 100 %; PEEP 14; Source Right Radial; Tidal Volume 420; Vent Rate 20
--- NOTE | 2023-04-13 08:19 | PC.NURSE ---
Meds taken from locked drawer, given to Eloisa, health surrogate according to living will. Did notice a bottle Xanax in the zip lock bag. Meds not counted, bag noted opened.
--- NOTE | 2023-04-13 09:39 | EXP.CARD.PN ---
Subjective Subjective Date: 04/13/23 Time: 08:00 Principal diagnosis: SAUD, n/v, elevated trop Interval history: Patient is intubated and sedated with fentanyl and propofol status post bronchoscopy, see pulmonology note. Morning labs reviewed. Adequate urine output noted. Chest x-ray from this morning reviewed Exam Data for Last 24 hours Vital signs and Labs for Last 24 Hours: Temp Pulse Resp BP Pulse Ox O2 Del Method O2 Flow Rate 98.6 F 46 L 13 142/84 H 95 Mechanical Ventilation 100 04/13/23 07:49 04/13/23 07:49 04/13/23 07:49 04/13/23 07:49 04/13/23 07:49 04/13/23 07:49 04/12/23 20:20 FiO2 100 04/13/23 07:49 Laboratory Results - last 24 hr 04/12/23 05:40: Sodium 132 L, Potassium 4.1, Chloride 90 L, Carbon Dioxide 37 H, Anion Gap 9.1, BUN 41 H, Creatinine 0.80, Estimated Creat Clear 143, Estimated GFR 100, Est GFR ( Amer) 121, Glucose 211 H, Calcium 7.5 L, Total Bilirubin 1.3, AST 46 D, ALT 64, Alkaline Phosphatase 80, Total Protein 5.6 L D, Albumin 2.9 L, Globulin 2.7, Albumin/Globulin Ratio 1.1, Procalcitonin 0.166 04/12/23 11:43: Specimen Source Right radial, O2 % 100, ABG pH 7.43, ABG pCO2 52.9 H, ABG pO2 53.6 L, ABG HCO3 34.2 H, ABG Total CO2 35.8 H, ABG O2 Saturation 87 L*, ABG Base Excess 9.8 H, Ben Test Acceptable, Vent Rate 20, Tidal Volume 420, PEEP 14 04/12/23 12:18: POC Glucose 190 H 04/12/23 14:15: Urine Color Yellow, Urine Appearance Clear, Urine pH 7.0, Ur Specific [place] 1.010, Urine Protein 1+, Urine Glucose (UA) Negative, Urine Ketones Negative, Urine Blood Negative, Urine Nitrate Negative, Urine Bilirubin Negative, Urine Urobilinogen >=8.0, Ur Leukocyte Esterase Negative, Urine RBC None, Urine WBC None, Ur Squamous Epith Cells None 04/12/23 16:55: POC Glucose 194 H 04/12/23 19:46: POC Glucose 178 H 04/13/23 05:58: POC Glucose 166 H 04/13/23 06:10: WBC 16.6 H, RBC 5.21, Hgb 17.0, Hct 51.2, MCV 98.4 H, MCH 32.6 H, MCHC 33.2, RDW 15.1, Plt Count 158, MPV 8.7, Neut % (Auto) 86.2 H, Lymph % (Auto) 2.7 L, [place] % (Auto) 10.9 H, Eos % (Auto) 0.1, Baso % (Auto) 0.1, Neut # (Auto) 14.3 H, Lymph # (Auto) 0.5 L, [place] # (Auto) 1.8 H, Eos # (Auto) 0.0, Baso # (Auto) 0.0, Total Counted 100, Neutrophils % (Manual) 92 H, Band Neutrophils % 1.0, Lymphocytes % (Manual) 3 L, Monocytes % (Manual) 4, Platelet Estimate Normal, Hypochromasia 1+, Macrocytosis 1+, Sodium 134 L, Potassium 3.9, Chloride 97 L, Carbon Dioxide 36 H, Anion Gap 4.9 L, BUN 31 H, Creatinine 0.70, Estimated Creat Clear 168, Estimated GFR 117, Est GFR ( Amer) 141, Glucose 187 H, Calcium 7.1 L 04/13/23 07:55: Specimen Source Right radial, O2 % 100, ABG pH 7.41, ABG pCO2 49.9 H, ABG pO2 88.6, ABG HCO3 31.1 H, ABG Total CO2 32.7 H, ABG O2 Saturation 97, ABG Base Excess 6.5 H, Ben Test yes, Vent Rate 20, Tidal Volume 420, PEEP 14 I & O for Last 24 hours: Intake & Output 04/10/23 04/11/23 04/12/23 04/13/23 23:59 23:59 23:59 23:59 Intake Total 800 / 850 1655 / 1655 2031.183 / 2370.183 1630.269 / 1630.269 Output Total 600 / 600 2950 / 2950 2125 / 2175 650 / 650 Balance 200 / 250 -1295 / -1295 -93.817 / 195.183 980.269 / 980.269 Weight 228 lb 9.91 oz 230 lb 9.656 oz 215 lb 9.793 oz 222 lb 10.67 oz Constitutional Comments: Sedation status post intubation yesterday *Routine Respiratory Exam Respiratory: Present patient mechanically ventilated and wheezes *Routine Cardiovascular Exam Cardiovascular: Present Normal S1, Normal S2 and bradycardia *Routine Abdominal Exam Abdominal: Present soft Progress Note: A&P Assessment and plan (1) Thickening of wall of gallbladder: Status: Chronic (2) Pneumonia: Status: Acute (3) Acute respiratory failure with hypoxia and hypercarbia: Status: Acute (4) Non-ST elevation [place] (NSTEMI): Status: Acute (5) Obstructive sleep apnea syndrome: Status: Chronic (6) CAD (coronary atherosclerotic disease): Problem details: Recent stent procedure Status: Chronic Ass
--- NOTE | 2023-04-13 09:50 | EXP.PULM.PN ---
Subjective *Date: 04/13/23 *Time: 12:06 Interval history: No acute respiratory events overnight post intubation Pulmonology Exam Inpatient Vital signs and Labs for Last 24 Hours: Temp Pulse Resp BP Pulse Ox O2 Del Method O2 Flow Rate 98.6 F 46 L 13 142/84 H 95 Mechanical Ventilation 100 04/13/23 07:49 04/13/23 07:49 04/13/23 07:49 04/13/23 07:49 04/13/23 07:49 04/13/23 07:49 04/12/23 20:20 FiO2 100 04/13/23 07:49 Laboratory Results - last 24 hr 04/12/23 05:40: Sodium 132 L, Potassium 4.1, Chloride 90 L, Carbon Dioxide 37 H, Anion Gap 9.1, BUN 41 H, Creatinine 0.80, Estimated Creat Clear 143, Estimated GFR 100, Est GFR ( Amer) 121, Glucose 211 H, Calcium 7.5 L, Total Bilirubin 1.3, AST 46 D, ALT 64, Alkaline Phosphatase 80, Total Protein 5.6 L D, Albumin 2.9 L, Globulin 2.7, Albumin/Globulin Ratio 1.1, Procalcitonin 0.166 04/12/23 11:43: Specimen Source Right radial, O2 % 100, ABG pH 7.43, ABG pCO2 52.9 H, ABG pO2 53.6 L, ABG HCO3 34.2 H, ABG Total CO2 35.8 H, ABG O2 Saturation 87 L*, ABG Base Excess 9.8 H, Ben Test Acceptable, Vent Rate 20, Tidal Volume 420, PEEP 14 04/12/23 12:18: POC Glucose 190 H 04/12/23 14:15: Urine Color Yellow, Urine Appearance Clear, Urine pH 7.0, Ur Specific [place] 1.010, Urine Protein 1+, Urine Glucose (UA) Negative, Urine Ketones Negative, Urine Blood Negative, Urine Nitrate Negative, Urine Bilirubin Negative, Urine Urobilinogen >=8.0, Ur Leukocyte Esterase Negative, Urine RBC None, Urine WBC None, Ur Squamous Epith Cells None 04/12/23 16:55: POC Glucose 194 H 04/12/23 19:46: POC Glucose 178 H 04/13/23 05:58: POC Glucose 166 H 04/13/23 06:10: WBC 16.6 H, RBC 5.21, Hgb 17.0, Hct 51.2, MCV 98.4 H, MCH 32.6 H, MCHC 33.2, RDW 15.1, Plt Count 158, MPV 8.7, Neut % (Auto) 86.2 H, Lymph % (Auto) 2.7 L, [place] % (Auto) 10.9 H, Eos % (Auto) 0.1, Baso % (Auto) 0.1, Neut # (Auto) 14.3 H, Lymph # (Auto) 0.5 L, [place] # (Auto) 1.8 H, Eos # (Auto) 0.0, Baso # (Auto) 0.0, Total Counted 100, Neutrophils % (Manual) 92 H, Band Neutrophils % 1.0, Lymphocytes % (Manual) 3 L, Monocytes % (Manual) 4, Platelet Estimate Normal, Hypochromasia 1+, Macrocytosis 1+, Sodium 134 L, Potassium 3.9, Chloride 97 L, Carbon Dioxide 36 H, Anion Gap 4.9 L, BUN 31 H, Creatinine 0.70, Estimated Creat Clear 168, Estimated GFR 117, Est GFR ( Amer) 141, Glucose 187 H, Calcium 7.1 L 04/13/23 07:55: Specimen Source Right radial, O2 % 100, ABG pH 7.41, ABG pCO2 49.9 H, ABG pO2 88.6, ABG HCO3 31.1 H, ABG Total CO2 32.7 H, ABG O2 Saturation 97, ABG Base Excess 6.5 H, Ben Test yes, Vent Rate 20, Tidal Volume 420, PEEP 14 I & O for Labs for Last 24 Hours: Intake & Output 04/10/23 04/11/23 04/12/23 04/13/23 23:59 23:59 23:59 23:59 Intake Total 800 / 850 1655 / 1655 2031.183 / 2370.183 1630.269 / 1630.269 Output Total 600 / 600 2950 / 2950 2125 / 2175 650 / 650 Balance 200 / 250 -1295 / -1295 -93.817 / 195.183 980.269 / 980.269 Weight 228 lb 9.91 oz 230 lb 9.656 oz 215 lb 9.793 oz 222 lb 10.67 oz Constitutional: Present severe distress Comment:: Intubated and Sedated Head: Present normocephalic and atraumatic Neck: Present normal inspection and trachea midline Respiratory: Present patient mechanically ventilated, prolonged expiratory phase, respiratory distress and rhonchi; Absent wheezes Cardiac: Present S1/S2 and Tachycardia GI: Present soft; Absent distention or tenderness Skin: Present intact; Absent cyanosis Neuro: Absent alert, awake or oriented x 3 Comment:: Intubated and sedated Extremities: Present normal inspection; Absent clubbing or cyanosis Psychiatric: Present unable to assess Assessment and Plan *Assessment and plan (1) Acute respiratory failure with hypoxia and hypercarbia: Status: Acute Category: Medical Code(s): J96.01 - Acute respiratory failure with hypoxia; J96.02 - Acute respiratory failure with hypercapnia (2) Pneumonia: Status: Acute Qualifiers: Laterality: r
--- NOTE | 2023-04-13 10:57 | PC.NURSE ---
Patient responds appropriately when asked yes or no questions. Asked patient if he was in any pain, patient raises head and moves head from right to left.
[2023-04-13 11:06] LABS: POC Glucose,Bedside 176 (70-110)
[2023-04-13 11:20] LABS: Adenovirus,PCR Not Detected (NotDetected); Coronavirus 19, PCR Not Detected (NotDetected); Coronavirus 229E Not Detected (NotDetected); Coronavirus NL63 Not Detected (NotDetected); Coronavirus OC43 Not Detected (NotDetected); Coronovirus HKU1,PCR Not Detected (NotDetected); Human Metapneumovirus Not Detected (NotDetected); Influenza A, PCR Not Detected (NotDetected); Influenza AH1, 2009 Not Detected (NotDetected); Influenza AH1, PCR Not Detected (NotDetected); Influenza AH3,PCR Not Detected (NotDetected); Influenza B, PCR Not Detected (NotDetected); Parainfluenza 1, PCR Not Detected (NotDetected); Parainfluenza 2, PCR Not Detected (NotDetected); Parainfluenza 3, PCR Not Detected (NotDetected); Parainfluenza 4, PCR Not Detected (NotDetected); Respiratory Syncytial Virus Not Detected (NotDetected); Rhinovirus/Enterovirus Not Detected (NotDetected)
--- NOTE | 2023-04-13 12:03 | PC.NURSE ---
RESP CARE NOTE: Pt is now on AC mode, Rate 20, FIO2 100%, Vt 440ml, and Peep of 10 cmH2O. We will continue to monitor patient and wean accordingly per Dr Shaw.
--- NOTE | 2023-04-13 13:57 | DIET.NUTRFU ---
Patient currently NPO secondary to intubation. Meal intake has been poor to none during hospitalization. Patient was ordered a diet on 04/10 and 04/12 but patient refused, otherwise has been NPO. Putting patient at risk for malnutrition. During rounds provider verbally consulted RD to start TF. He currently has NG tube in place. Labs reviewed, Na 134L, glucose was 187H. He is diabetic and takes metformin at home, insulin currently in place. Diabetic formula is recommended. Patient is on propofol for sedation received 224ml 04/12 and already 133ml today, providing 1.1kcal/ml. IVF discontinued, was receiving LR 04/09 and heparin/dextrose 04/10,04/11. No BM noted since admit, Senokot added today, possibly d/t lack of intake. Diuretic tx received 04/10,04/12-. Nutritional needs using CBW of [id number], 80gm protein and 1900ml/day. Start TF of glucerna at 20ml/hr and increase every shift if tolerated to 65ml/hr providing 1560kcal, 65gm protein and 1330ml/day. Once propofol is discontinued my increase to better meet needs. Chest X-ray was completed showing improvement and wants him extubated in 4 days or less. Urine out good at 2125-04/12 and 2950ml on 04/11. Will monitor TF tolerance and overall status, once extubated bedside swallow completed and advance as feasible.
--- NOTE | 2023-04-13 14:49 | PC.NURSE ---
Glucernia 1.0 MAUDE initiated at 20ml/hr with [id number] flush.
--- NOTE | 2023-04-13 17:43 | PC.NURSE ---
No SBT today. Goal from morning rounds was to ween and sustain a peep of 10. Current vent settings as follows TV 440, Respirations 20, FiO2 100%, PEEP 10 with a current saturation of 92%. Glucerna tube feedings initiated via left nare NG tube at 20ml/hr with 150ml Q6hr flush. Diprovan gtt at 25mcg/kg/min. Fentanyl 50mcg/hr.
--- NOTE | 2023-04-13 18:00 | PC.NURSE ---
Patient vent alarming high pressure, patient raising up in bed, biting tube, raising both arms as far as possible. Increased sedation to Diprovan 40mcg/kg/hr and Fentanyl 100mcg/hr. Fentayl 12.5 mcg IV push administered.
[2023-04-13 18:08] LABS: POC Glucose,Bedside 176 (70-110)
--- NOTE | 2023-04-13 19:00 | PC.NURSE ---
Spoke with surrogate Eloisa Bhavin regarding pt status and current POC. Surrogate not at bedside tonight. Answered all questions at this time.
[2023-04-13 19:50] LABS: POC Glucose,Bedside 187 (70-110)
[2023-04-14] VITALS (38 sets, daily range): BP systolic 110–164; BP diastolic 67–100; PULSE 39–64; RESP 20–26; TEMP 36.1–37.1; O2SAT 88–93; BMI 29.8
[2023-04-14 01:25] LABS: Vancomycin,Trough 17.4 ug/mL (5.0-10.0)
--- NOTE | 2023-04-14 02:45 | PC.NURSE ---
Hendry vent alarm, responded to alarm. Pt found to be lifting head off pillow and attempting to open eyes, mittens still applied but BUE not attempting to reach for tubes/lines. Pt able to follow commands and answer Y/N questions by shaking/nodding head. Pt asked if he needed to be suctioned. Suctioned via in-line suction with 2 passes, small amount of cloudy jordan sputum, SpO2 95% after suction before decreasing to 92%. Pt reoriented and discussed current comfort and sedation. Pt nodded to feeling comfortable. x1 fentanyl 12.5 mcg IVP administered, pt RASS -1, SpO2 91%, HOB 35 degrees.
--- NOTE | 2023-04-14 04:51 | PC.WOUNDNOTE ---
Total bed bath given by RNs and SRNA. Upon turning, skin assessment conducted. Improving excoriation in buttocks, blanchable upon assessment, cleaned with soap and water. Continue to turn Q2 hrs and monitor skin. Pt RASS +1 despite short increase in titration of propofol gtt (35 mcg/kg/min) and fentanyl gtt (125 mcg/hr), but able to follow commands and tolerated bed bath and turning well.
--- NOTE | 2023-04-14 04:55 | PC.NURSE ---
Pt shift summary Pt remains sedated on fentanyl and propofol gtt. Intermittently attempted to decrease propofol gtt to maintain pt vent tolerance and RASS goal, pt only required short increase in propofol during bed change. Fentanyl gtt at 125 mcg/hr with stable VS. Mittens placed upon shift change, periodically assessed throughout shift, pt tolerated. Pt able to intermittently follow commands and maintain RASS goal. Pt tolerated current vent settings and required minimal in-line suctioning. SpO2 90-92% throughout night, no notable changes in SpO2 during pt position changes. Pt required PRN hydralazine in beginning of shift, but has been normotensive when fentanyl gtt increased and position changed. No gastric residuals on assessment, pt tolerating TF, able to increase rate to 30 mL/hr 8 hrs after start. No BM at this time, but (+) bowel sounds and first day on TF.
[2023-04-14 05:55] LABS: POC Glucose,Bedside 217 (70-110)
[2023-04-14 06:18] LABS: Basophils % 0.1 % (0.1-2.0); Eosinophils # 0.1 K/mm3 (0.0-0.4); Eosinophils % 0.3 % (0.1-12.0); Hematocrit 52.2 % (42.0-52.0); Hemoglobin 17.2 g/dL (14.1-18.0); Lymphocytes # 0.4 K/mm3 (0.7-4.5); Lymphocytes % 2.5 % (10-50); Mean Corpuscular HGB Conc 32.9 g/dL (31.8-35.4); Mean Corpuscular Hemoglobin 32.4 pg (27.0-31.2); Mean Corpuscular Volume 98.6 fl (80-94); Mean Platelet Volume 8.8 fl (7.4-10.4); Monocytes # 1.3 K/mm3 (0.1-1.0); Monocytes % 8.4 % (1.7-9.3); Neutrophils # 13.4 K/mm3 (1.8-7.8); Neutrophils % 88.6 % (37.0-80.0); Platelet Count 144 K/mm3 (142-424); White Blood Count 15.1 K/mm3 (4.8-10.8)
[2023-04-14 06:20] LABS: MANUAL DIFFERENTIAL MANUAL DIFFERENTIAL (MANUAL DIFF)
[2023-04-14 06:26] LABS: Chloride 100 mmol/L (98-107); Sodium 135 mmol/L (136-145)
[2023-04-14 06:27] LABS: Potassium 3.8 mmoL/L (3.5-5.1)
[2023-04-14 06:29] LABS: Alanine Aminotransferase 45 U/L (12-78); Albumin Level 3.1 g/dl (3.5-5.0); Albumin/Globulin Ratio 1.1 (1.1-1.8); Alkaline Phosphatase 69 U/L (38-126); Anion Gap 4.8 mEq/L (5-15); Aspartate Amino Transferase 29 U/L (17-59); Bilirubin,Total 1.8 mg/dl (0.2-1.3); Blood Urea Nitrogen 30 mg/dl (9-20); Calcium 7.2 mg/dl (8.4-10.2); Carbon Dioxide 34 mmol/L (22.0-30.0); Creatinine Clearance Estimated 167 mL/min (50-200); Estimated Glomerular Filt Rate 117 ml/min (>60); GFR (African American) 141 ML/MIN (>60); Globulin 2.9 g/dL (1.3-3.2); Glucose 234 mg/dl (74-100)
[2023-04-14 06:30] LABS: Magnesium 2.1 mg/dl (1.6-2.3)
[2023-04-14 08:03] LABS: ABG Base Excess 9.8 mmol/L (-2.4-2.3); ABG HCO3 33.5 mmhg (22.0-26.0); ABG Oxygen Saturation 91 % (90-100); ABG PCO2 47.9 mmhg (35.0-45.0); ABG PH 7.46 mmol/L (7.35-7.45); ABG PO2 58.4 mmhg (80-100)
[2023-04-14 08:05] LABS: Oxygen 100% %; Tidal Volume 440
[2023-04-14 08:06] LABS: Allen's Test Acceptable; PEEP 10; Source Right Radial; Vent Rate 20
--- NOTE | 2023-04-14 08:27 | XR_ITS ---
FINAL REPORT CLINICAL HISTORY: INTUBATED COMPARISON: 04/13/2023 FINDINGS: SINGLE-VIEW CHEST The heart size is normal. The mediastinum is normal. ET tube and NG tube remain in place. There are partially improved left base opacities consistent with improved pneumonia or atelectasis. There is mild but worsening right base opacities. There is no pneumothorax. IMPRESSION: Improved pneumonia or atelectasis in the left base with worsening right base opacities. Reviewed, Interpreted and Dictated by Cody Ge III, MD Transcribed by Leticia Rojas Authenticated and [facility]
[2023-04-14 09:25] LABS: Lymphocytes % 3 % (10-50); Monocytes % 4 % (2-9); Neutrophils % 93 % (42-76); Platelet Estimate Slight Decrease; RBC Morphology Normal; Total Cells Counted 100; Vancomycin,Peak 31.1 ug/ml (11-39)
--- NOTE | 2023-04-14 09:27 | PC.NURSE ---
5MLS OF RESIDUALS, TUBE FEED INCREASED FROM 40MLS/HR TO 50MLS/HR
--- NOTE | 2023-04-14 09:46 | EXP.PULM.PN ---
Subjective *Date: 04/14/23 *Time: 12:19 Interval history: No acute respiratory vents overnight. Pulmonology Exam Inpatient Vital signs and Labs for Last 24 Hours: Temp Pulse Resp BP Pulse Ox O2 Del Method O2 Flow Rate 98.0 F 50 L 20 130/79 90 L Mechanical Ventilation 100 04/14/23 09:00 04/14/23 09:00 04/14/23 09:00 04/14/23 09:00 04/14/23 09:00 04/14/23 09:00 04/12/23 20:20 FiO2 100 04/14/23 08:00 Laboratory Results - last 24 hr 04/13/23 10:52: POC Glucose 176 H 04/13/23 11:15: Chlamy pneumoniae PCR TNP, Adenovirus (PCR) Not detected, B. pertussis DNA (PCR) TNP, Coronavirus OC43 (PCR) Not detected, Coronavirus HKU1 (PCR) Not detected, Coronavirus 229E (PCR) Not detected, SARS-CoV-2 (PCR) Not detected, Coronavirus NL63 (PCR) Not detected, Human Metapneumovir PCR Not detected, Influenza A (H1) PCR Not detected, Influ A (H1N1/09) PCR Not detected, Influenza A (H3) PCR Not detected, Influenza Type A (PCR) Not detected, Influenza Type B (PCR) Not detected, M. pneumoniae (PCR) TNP, Parainfluenza 1 (PCR) Not detected, Parainfluenza 2 (PCR) Not detected, Parainfluenza 3 (PCR) Not detected, Parainfluenza 4 (PCR) Not detected, RSV (PCR) Not detected, Entero/Rhino (PCR) Not detected 04/13/23 18:01: POC Glucose 176 H 04/13/23 19:40: POC Glucose 187 H 04/14/23 01:00: Vancomycin Trough 17.4 H 04/14/23 05:48: POC Glucose 217 H 04/14/23 06:01: WBC 15.1 H, RBC 5.30, Hgb 17.2, Hct 52.2 H, MCV 98.6 H, MCH 32.4 H, MCHC 32.9, RDW 15.0, Plt Count 144, MPV 8.8, Neut % (Auto) 88.6 H, Lymph % (Auto) 2.5 L, [place] % (Auto) 8.4, Eos % (Auto) 0.3, Baso % (Auto) 0.1, Neut # (Auto) 13.4 H, Lymph # (Auto) 0.4 L, [place] # (Auto) 1.3 H, Eos # (Auto) 0.1, Baso # (Auto) 0.0, Total Counted 100, Neutrophils % (Manual) 93 H, Lymphocytes % (Manual) 3 L, Monocytes % (Manual) 4, Platelet Estimate Slight decrease, RBC Morphology Normal, Sodium 135 L, Potassium 3.8, Chloride 100, Carbon Dioxide 34 H, Anion Gap 4.8 L, BUN 30 H, Creatinine 0.70, Estimated Creat Clear 167, Estimated GFR 117, Est GFR ( Amer) 141, Glucose 234 H D, Calcium 7.2 L, Magnesium 2.1, Total Bilirubin 1.8 H, AST 29 D, ALT 45 D, Alkaline Phosphatase 69, Total Protein 6.0 L, Albumin 3.1 L, Globulin 2.9, Albumin/Globulin Ratio 1.1, Vancomycin Peak 31.1 04/14/23 07:49: Specimen Source Right radial, O2 % 100%, ABG pH 7.46 H, ABG pCO2 47.9 H, ABG pO2 58.4 L, ABG HCO3 33.5 H, ABG Total CO2 35.0 H, ABG O2 Saturation 91, ABG Base Excess 9.8 H, Ben Test Acceptable, Vent Rate 20, Tidal Volume 440, PEEP 10 I & O for Labs for Last 24 Hours: Intake & Output 04/11/23 04/12/23 04/13/23 04/14/23 23:59 23:59 23:59 23:59 Intake Total 1655 / 1655 2031.183 / 2370.183 2936.909 / 2985.909 1184.815 / 1184.815 Output Total 2950 / 2950 2125 / 2175 2915 / 3015 800 / 800 Balance -1295 / -1295 -93.817 / 195.183 21.909 / -29.091 384.815 / 384.815 Weight 230 lb 9.656 oz 215 lb 9.793 oz 222 lb 10.67 oz 220 lb 7.396 oz Constitutional: Present severe distress Comment:: Intubated and Sedated Head: Present normocephalic and atraumatic Neck: Present normal inspection and trachea midline Respiratory: Present patient mechanically ventilated, prolonged expiratory phase, respiratory distress and rhonchi; Absent wheezes Cardiac: Present S1/S2 and Tachycardia GI: Present soft; Absent distention or tenderness Skin: Present intact; Absent cyanosis Neuro: Absent alert, awake or oriented x 3 Comment:: Intubated and sedated Extremities: Present normal inspection; Absent clubbing or cyanosis Psychiatric: Present unable to assess Assessment and Plan *Assessment and plan (1) Acute respiratory failure with hypoxia and hypercarbia: Status: Acute Category: Medical Code(s): J96.01 - Acute respiratory failure with hypoxia; J96.02 - Acute respiratory failure with hypercapnia (2) Pneumonia: Status: Acute Qualifiers: Laterality: right Lung location: lower lobe of lung Pneumonia type: due to uns
--- NOTE | 2023-04-14 10:05 | PC.NURSE ---
Carvedilol held due to patient's HR being 40's - 50's. Notified Dr Langston during rounds, ok to hold, change dose to 12.5mg bid.
--- NOTE | 2023-04-14 10:29 | PC.NURSE ---
RESP CARE NOTE: Pt ET tube advanced to 24 at the teeth per Dr Shaw order. Will continue to monitor patient.
--- NOTE | 2023-04-14 11:32 | DIET.NUTRFU ---
Patient is tolerating TF, currently running glucerna at 50ml/hr ATC with goal rate of 65ml/hr ATC providing 1560kcal, 65gm protein and 1330ml/day. Yesterday patient was given 197ml of propofol providing 217.58kcal. Flush is 150ml Q6H= 600ml/day, total fluid of 1830ml/day. labs today were reviewed Na 135L, K 3.8, BUN 30H, Cr 0.70 and glucose 234H. No BM x5 days, meds were started yesterday and will provide enema today. Will continue to monitor TF tolerance and overall POC
[2023-04-14 11:44] LABS: POC Glucose,Bedside 211 (70-110)
--- NOTE | 2023-04-14 13:01 | EXP.CARD.PN ---
Subjective Subjective Date: 04/14/23 Time: 08:00 Principal diagnosis: SAUD, n/v, elevated trop Interval history: No acute respiratory events overnight. Morning labs reviewed. remains at beside. Exam Data for Last 24 hours Vital signs and Labs for Last 24 Hours: Temp Pulse Resp BP Pulse Ox O2 Del Method O2 Flow Rate 97.8 F 64 20 110/67 88 L Mechanical Ventilation 100 04/14/23 11:31 04/14/23 11:45 04/14/23 11:00 04/14/23 11:00 04/14/23 11:00 04/14/23 11:00 04/12/23 20:20 FiO2 90 04/14/23 10:00 Laboratory Results - last 24 hr 04/13/23 18:01: POC Glucose 176 H 04/13/23 19:40: POC Glucose 187 H 04/14/23 01:00: Vancomycin Trough 17.4 H 04/14/23 05:48: POC Glucose 217 H 04/14/23 06:01: WBC 15.1 H, RBC 5.30, Hgb 17.2, Hct 52.2 H, MCV 98.6 H, MCH 32.4 H, MCHC 32.9, RDW 15.0, Plt Count 144, MPV 8.8, Neut % (Auto) 88.6 H, Lymph % (Auto) 2.5 L, [place] % (Auto) 8.4, Eos % (Auto) 0.3, Baso % (Auto) 0.1, Neut # (Auto) 13.4 H, Lymph # (Auto) 0.4 L, [place] # (Auto) 1.3 H, Eos # (Auto) 0.1, Baso # (Auto) 0.0, Total Counted 100, Neutrophils % (Manual) 93 H, Lymphocytes % (Manual) 3 L, Monocytes % (Manual) 4, Platelet Estimate Slight decrease, RBC Morphology Normal, Sodium 135 L, Potassium 3.8, Chloride 100, Carbon Dioxide 34 H, Anion Gap 4.8 L, BUN 30 H, Creatinine 0.70, Estimated Creat Clear 167, Estimated GFR 117, Est GFR ( Amer) 141, Glucose 234 H D, Calcium 7.2 L, Magnesium 2.1, Total Bilirubin 1.8 H, AST 29 D, ALT 45 D, Alkaline Phosphatase 69, Total Protein 6.0 L, Albumin 3.1 L, Globulin 2.9, Albumin/Globulin Ratio 1.1, Vancomycin Peak 31.1 04/14/23 07:49: Specimen Source Right radial, O2 % 100%, ABG pH 7.46 H, ABG pCO2 47.9 H, ABG pO2 58.4 L, ABG HCO3 33.5 H, ABG Total CO2 35.0 H, ABG O2 Saturation 91, ABG Base Excess 9.8 H, Ben Test Acceptable, Vent Rate 20, Tidal Volume 440, PEEP 10 04/14/23 10:52: POC Glucose 211 H I & O for Last 24 hours: Intake & Output 04/11/23 04/12/23 04/13/23 04/14/23 23:59 23:59 23:59 23:59 Intake Total 1655 / 1655 2031.183 / 2370.183 2936.909 / 2985.909 1319.815 / 1319.815 Output Total 2950 / 2950 2125 / 2175 2915 / 3015 950 / 950 Balance -1295 / -1295 -93.817 / 195.183 21.909 / -29.091 369.815 / 369.815 Weight 230 lb 9.656 oz 215 lb 9.793 oz 222 lb 10.67 oz 220 lb 7.396 oz Constitutional Constitutional: no acute distress Comments: Intubated and sedated *Routine Respiratory Exam Respiratory: Present wheezes and symmetric chest movement *Routine Cardiovascular Exam Cardiovascular: Present RRR, Normal S1 and Normal S2 *Routine Abdominal Exam Abdominal: Present soft and normoactive bowel sounds; Absent tenderness *Routine Extremities Exam Extremities: Present normal capillary refill; Absent edema *Routine Skin Exam Skin: Present intact, dry and warm Detailed Neck Exam: Thyroids Thyroid: Absent bruit Progress Note: A&P Assessment and plan (1) Acute respiratory failure with hypoxia and hypercarbia: Status: Acute (2) Pneumonia: Status: Acute (3) On mechanically assisted ventilation: Status: Acute Assessment and Plan Assessment and Plan for All Diagnoses:: Coronary artery disease Acute myocardial injury Bradycardia -Troponin 0.41 trending up to 2.41 in the setting of acute illness with nausea, vomiting, respiratory failure and SAUD. -EKG negative for acute ischemic changes -EF 55% in August 2022. Enlarged right ventricle noted. Echo 03/2023: Normal biventricular LV systolic function, moderate to severe RV dilation with moderate RV dysfunction, mild TR, elevated RVSP 40-45mmHG -Continue aspirin 81 mg p.o. daily, Brilinta 90 mg p.o. twice daily atorvastatin 20 mg p.o. daily. Will decrease coreg to 12.5mg BID due to bradycardia. Right sided heart failure/moderate RV dysfunction Moderate to severe RV dilation Elevated RVSP 40-45 Cor pulmonale -Lasix 40mg IV x 1 Acute on chronic respiratory failure Increased oxygen demand during admission Severe slee
--- NOTE | 2023-04-14 15:31 | EXP.PHA.CONS ---
Pharmacy Consult Date: 04/14/23 Time: 15:31 Referring provider: DR. BACH Reason for Consult:: VANCOMYCIN LEVEL Allergies Allergy/AdvReac Type Severity Reaction Status Date / Time acetaminophen [From Tylenol] Allergy Intermediate Rash Verified 02/17/23 10:26 Home Medications Medication Instructions Recorded Confirmed Type atorvastatin 20 mg tablet 20 mg PO HS Cholesterol 09/30/22 04/10/23 History furosemide 20 mg tablet (Lasix) 20 mg PO DAILY Fluid 09/30/22 04/09/23 History albuterol sulfate 90 mcg/actuation 2 puff inhalation Q4HP PRN 10/29/22 04/10/23 History aerosol inhaler (ProAir HFA) Shortness Of Breath blood-glucose meter (Blood Glucose #1 ea 01/15/23 04/10/23 Rx Monitoring kit) blood sugar diagnostic (Blood #50 ea 01/19/23 04/10/23 Rx Glucose Test strips) aspirin 325 mg tablet 325 mg PO DAILY Heart Health 04/09/23 04/09/23 History budesonide-formoterol HFA 80 1 inh inhalation BID Breathing 04/09/23 04/09/23 History mcg-4.5 mcg/actuation aerosol Problems inhaler (Symbicort) carvedilol 25 mg tablet 25 mg PO BID High Blood Pressure 04/09/23 04/09/23 History metformin 500 mg tablet 500 mg PO BIDWMEAL Diabetes 04/09/23 04/10/23 History ticagrelor 90 mg tablet (Brilinta) 90 mg PO BID Platelet Inhibitor 04/09/23 04/09/23 History ipratropium 0.5 mg-albuterol 3 mg 3 ml inhalation Q4HP PRN Shortness 04/10/23 04/10/23 History (2.5 mg base)/3 mL nebulization Of Breath soln lisinopril 40 mg tablet 40 mg PO DAILY High Blood Pressure 04/10/23 04/09/23 History New Prescriptions to Start Prescriptions: Height: 1.83 m Weight: 100 kg Laboratory Results:: Laboratory Results - last 24 hr 04/13/23 18:01: POC Glucose 176 H 04/13/23 19:40: POC Glucose 187 H 04/14/23 01:00: Vancomycin Trough 17.4 H 04/14/23 05:48: POC Glucose 217 H 04/14/23 06:01: WBC 15.1 H, RBC 5.30, Hgb 17.2, Hct 52.2 H, MCV 98.6 H, MCH 32.4 H, MCHC 32.9, RDW 15.0, Plt Count 144, MPV 8.8, Neut % (Auto) 88.6 H, Lymph % (Auto) 2.5 L, [place] % (Auto) 8.4, Eos % (Auto) 0.3, Baso % (Auto) 0.1, Neut # (Auto) 13.4 H, Lymph # (Auto) 0.4 L, [place] # (Auto) 1.3 H, Eos # (Auto) 0.1, Baso # (Auto) 0.0, Total Counted 100, Neutrophils % (Manual) 93 H, Lymphocytes % (Manual) 3 L, Monocytes % (Manual) 4, Platelet Estimate Slight decrease, RBC Morphology Normal, Sodium 135 L, Potassium 3.8, Chloride 100, Carbon Dioxide 34 H, Anion Gap 4.8 L, BUN 30 H, Creatinine 0.70, Estimated Creat Clear 167, Estimated GFR 117, Est GFR ( Amer) 141, Glucose 234 H D, Calcium 7.2 L, Magnesium 2.1, Total Bilirubin 1.8 H, AST 29 D, ALT 45 D, Alkaline Phosphatase 69, Total Protein 6.0 L, Albumin 3.1 L, Globulin 2.9, Albumin/Globulin Ratio 1.1, Vancomycin Peak 31.1 04/14/23 07:49: Specimen Source Right radial, O2 % 100%, ABG pH 7.46 H, ABG pCO2 47.9 H, ABG pO2 58.4 L, ABG HCO3 33.5 H, ABG Total CO2 35.0 H, ABG O2 Saturation 91, ABG Base Excess 9.8 H, Ben Test Acceptable, Vent Rate 20, Tidal Volume 440, PEEP 10 04/14/23 10:52: POC Glucose 211 H Medical History: Medical History (Updated 04/13/23 @ 15:22 by Long Grace MD) Abnormal echocardiogram Acute respiratory failure with hypoxia and hypercarbia Arthritis CAD (coronary atherosclerotic disease) COPD (chronic obstructive pulmonary disease) Dyspnea Edema of both lower extremities HLD (hyperlipidemia) HTN (hypertension) Obstructive sleep apnea syndrome On mechanically assisted ventilation Pneumonia Polycythemia vera Polycythemia vera Sinus tachycardia Witnessed episode of apnea Assessment and Plan Assessment and plan all Dx Assessment and Plan for all problems:: PATIENT'S VANCOMYCIN PEAK AND TROUGH LEVELS WERE 31.1 MCG/ML AND 17.4 MCG/ML, RESPECTIVELY. RECOMMENDED PATIENT CONTINUE WITH VANCOMYCIN 1750 MG Q12H AT THIS TIME.
[2023-04-14 16:21] LABS: POC Glucose,Bedside 160 (70-110)
--- NOTE | 2023-04-14 18:55 | EXP.ACUTE.PN ---
Subjective *Date: 04/14/23 *Time: 18:55 Interval history: Remains sedated and intubated. Current vent settings FiO2 90%, volume 440, rate 20, PEEP 10. Tolerating tube feeds overnight with gradual advancement. At goal this afternoon at 65 cc an hour. No bowel movement, status post enema x1. Remains afebrile and hemodynamically stable. Medical Exam Vital signs and Labs for Last 24 Hours: Vital Signs Temp Pulse Pulse Resp BP BP Pulse Ox 04/14/23 18:43 45 L 04/14/23 18:43 45 L 04/14/23 18:43 20 93 L 04/14/23 18:42 04/14/23 18:00 20 04/14/23 18:00 46 L 20 150/94 H 93 L 04/14/23 16:00 40 L 04/14/23 16:00 90 L 04/14/23 17:00 04/14/23 16:00 90 L 04/14/23 17:00 46 L 20 163/97 H 90 L 04/14/23 16:00 43 L 20 147/88 H 90 L 04/14/23 08:00 47 L 04/14/23 12:00 51 L 04/14/23 08:00 47 L 04/14/23 15:26 97.8 F 04/14/23 12:00 89 L 04/14/23 08:00 93 L 04/14/23 15:00 04/14/23 14:00 20 04/14/23 15:00 48 L 20 127/80 90 L 04/14/23 14:00 49 L 20 117/68 91 L 04/14/23 13:00 54 L 20 114/70 91 L 04/14/23 12:00 52 L 20 117/72 89 L 04/14/23 13:35 20 91 L 04/14/23 10:20 20 91 L 04/14/23 13:00 04/14/23 11:45 64 04/14/23 11:45 62 04/14/23 11:31 97.8 F 04/14/23 10:00 04/14/23 11:00 54 L 20 110/67 88 L 04/14/23 11:00 04/14/23 10:00 48 L 20 132/81 91 L 04/14/23 09:00 98.0 F 50 L 20 130/79 90 L 04/14/23 08:46 04/14/23 08:00 96.9 F L 04/14/23 08:00 93 L 04/14/23 08:00 48 L 20 135/79 93 L 04/14/23 07:00 46 L 20 137/83 93 L 04/14/23 06:51 04/14/23 06:29 20 93 L 04/14/23 06:28 44 L 04/14/23 06:28 43 L 04/14/23 04:00 45 L 04/14/23 06:00 44 L 20 159/100 H 93 L 04/14/23 06:00 93 L 04/14/23 05:00 44 L 20 133/77 92 L 04/14/23 05:00 04/14/23 04:30 98.0 F 48 L 20 134/84 91 L 04/14/23 04:30 20 91 L 04/14/23 04:26 26 H 93 L 04/14/23 03:00 48 L 20 130/78 90 L 04/14/23 03:00 04/14/23 02:49 20 91 L 04/14/23 02:00 46 L 20 157/89 H 91 L 04/14/23 02:00 92 L 04/14/23 01:00 44 L 20 158/96 H 92 L 04/14/23 01:00 04/13/23 20:00 45 L 04/14/23 00:00 98.8 F 48 L 20 164/96 H 91 L 04/14/23 00:00 20 91 L 04/13/23 23:17 61 04/13/23 23:17 61 04/13/23 23:00 45 L 20 153/91 H 92 L 04/13/23 23:00 04/13/23 22:30 50 L 20 159/98 H 92 L 04/13/23 22:00 20 91 L 04/13/23 22:00 44 L 20 185/107 H 92 L 04/13/23 21:00 45 L 20 151/93 H 91 L 04/13/23 21:00 04/13/23 20:26 20 90 L 04/13/23 20:00 20 91 L 04/13/23 20:00 98.3 F 45 L 20 158/97 H 91 L 04/13/23 20:00 20 91 L 04/13/23 19:00 98.0 F 45 L 20 180/107 H 93 L 04/13/23 19:00 O2 Del Method FiO2 04/14/23 18:43 04/14/23 18:43 04/14/23 18:43 90 04/14/23 18:42 Mechanical Ventilation 04/14/23 18:00 90 04/14/23 18:00 Mechanical Ventilation 90 04/14/23 16:00 04/14/23 16:00 Mechanical Ventilation 90 04/14/23 17:00 Mechanical Ventilation 04/14/23 16:00 Mechanical Ventilation 90 04/14/23 17:00 Mechanical Ventilation 90 04/14/23 16:00 Mechanical Ventilation 90 04/14/23 08:00 04/14/23 12:00 04/14/23 08:00 04/14/23 15:26 04/14/23 12:00 Mechanical Ventilation 90 04/14/23 08:00 Mechanical Ventilation 100 04/14/23 15:00 Mechanical Ventilation 04/14/23 14:00 90 04/14/23 15:00 Mechanical Ventilation 90 04/14/23 14:00 Mechanical Ventilation 90 04/14/23 13:00 Mechanical Ventilation 90 04/14/23 12:00 Mechanical Ventilation 90 04/14/23 13:35 90 04/14/23 10:20 90 04/14/23 13:00 Mechanical
[2023-04-14 21:26] LABS: POC Glucose,Bedside 164 (70-110)
[2023-04-15] VITALS (36 sets, daily range): BP systolic 123–165; BP diastolic 76–97; PULSE 40–60; RESP 18–25; TEMP 36.1–36.8; O2SAT 88–95; BMI 29.8
[2023-04-15 05:36] LABS: POC Glucose,Bedside 230 (70-110)
--- NOTE | 2023-04-15 06:00 | XR_ITS ---
PROCEDURE INFORMATION: Exam: XR Chest Exam date and time: 04/15/2023 5:51 AM Age: 57 years old Clinical indication: Device placement; Ett placement (vent status); Additional info: Intubated TECHNIQUE: Imaging protocol: Radiologic exam of the chest. Views: 1 view. COMPARISON: CR XR CHEST PORTABLE 04/14/2023 8:29 AM FINDINGS: Tubes, catheters and devices: ET tube in good position. Lungs: Bibasilar atelectasis. No consolidation. Pleural spaces: Bilateral small pleural effusion. No pneumothorax. Heart/Mediastinum: Unremarkable. No cardiomegaly. Bones/joints: Unremarkable. IMPRESSION: Stable bibasilar atelectasis and effusions.
[2023-04-15 06:30] LABS: Basophils % 0.1 % (0.1-2.0); Eosinophils % 0.1 % (0.1-12.0); Hematocrit 54.5 % (42.0-52.0); Hemoglobin 17.6 g/dL (14.1-18.0); Lymphocytes # 0.3 K/mm3 (0.7-4.5); Lymphocytes % 2.5 % (10-50); Mean Corpuscular HGB Conc 32.2 g/dL (31.8-35.4); Mean Corpuscular Hemoglobin 32.3 pg (27.0-31.2); Mean Corpuscular Volume 100.2 fl (80-94); Mean Platelet Volume 8.7 fl (7.4-10.4); Monocytes % 6.9 % (1.7-9.3); Neutrophils # 12.9 K/mm3 (1.8-7.8); Neutrophils % 90.5 % (37.0-80.0); Platelet Count 144 K/mm3 (142-424); Red Blood Count 5.44 M/mm3 (4.60-6.20); White Blood Count 14.2 K/mm3 (4.8-10.8)
[2023-04-15 06:57] LABS: MANUAL DIFFERENTIAL MANUAL DIFFERENTIAL (MANUAL DIFF)
[2023-04-15 07:00] LABS: Chloride 100 mmol/L (98-107); Sodium 136 mmol/L (136-145)
[2023-04-15 07:01] LABS: Potassium 3.7 mmoL/L (3.5-5.1)
[2023-04-15 07:03] LABS: Alanine Aminotransferase 35 U/L (12-78); Albumin Level 3.1 g/dl (3.5-5.0); Albumin/Globulin Ratio 1.1 (1.1-1.8); Alkaline Phosphatase 83 U/L (38-126); Anion Gap 7.7 mEq/L (5-15); Aspartate Amino Transferase 36 U/L (17-59); Bilirubin,Total 1.5 mg/dl (0.2-1.3); Blood Urea Nitrogen 30 mg/dl (9-20); Carbon Dioxide 32 mmol/L (22.0-30.0); Creatinine Clearance Estimated 167 mL/min (50-200); Estimated Glomerular Filt Rate 117 ml/min (>60); GFR (African American) 141 ML/MIN (>60); Globulin 2.7 g/dL (1.3-3.2); Glucose 254 mg/dl (74-100); Total Protein,Serum 5.8 g/dl (6.3-8.2)
[2023-04-15 08:00] LABS: ABG Base Excess 5.6 mmol/L (-2.4-2.3); ABG HCO3 29.6 mmhg (22.0-26.0); ABG Oxygen Saturation 95 % (90-100); ABG PH 7.46 mmol/L (7.35-7.45); ABG PO2 69.6 mmhg (80-100); ABG TCO2 30.9 mmhg (23-27)
[2023-04-15 08:01] LABS: Oxygen 90% %; PEEP 10; Source Right Radial; Tidal Volume 440; Vent Rate 20
[2023-04-15 08:14] LABS: Magnesium 2.2 mg/dl (1.6-2.3)
[2023-04-15 08:23] LABS: Lymphocytes % 3 % (10-50); Monocytes % 2 % (2-9); Neutrophils % 95 % (42-76); Platelet Estimate Slight Decrease; RBC Morphology Normal; Total Cells Counted 100
--- NOTE | 2023-04-15 09:00 | EXP.PHA.PN ---
Subjective *Date: 04/15/23 *Time: 09:00 Medical Exam Vital signs and Labs for Last 24 Hours: Vital Signs Temp Pulse Pulse Pulse Resp BP Pulse Ox 04/15/23 08:55 04/15/23 08:00 47 L 20 150/96 H 94 L 04/15/23 08:00 94 L 04/15/23 08:00 94 L 04/15/23 08:00 97.7 F 04/15/23 06:00 43 L 20 162/91 H 92 L 04/15/23 06:01 44 L 04/15/23 06:01 41 L 04/15/23 06:01 94 L 04/15/23 06:01 20 94 L 04/15/23 04:50 48 L 20 94 L 04/15/23 04:45 49 L 20 93 L 04/15/23 04:40 50 L 20 94 L 04/15/23 04:00 60 04/15/23 04:00 48 L 20 95 04/15/23 04:00 40 L 04/15/23 04:00 97.3 F L 04/15/23 07:00 43 L 20 153/91 H 92 L 04/15/23 07:00 04/15/23 05:00 04/15/23 05:00 45 L 20 139/87 93 L 04/15/23 03:00 04/15/23 03:00 45 L 20 143/85 H 94 L 04/15/23 02:00 44 L 20 139/87 95 04/15/23 00:00 42 L 95 04/15/23 00:49 04/15/23 00:00 40 L 04/15/23 00:00 92 L 04/14/23 23:50 39 L 04/14/23 23:50 39 L 04/14/23 23:50 20 92 L 04/14/23 23:00 41 L 20 157/91 H 92 L 04/15/23 01:00 45 L 20 140/87 95 04/15/23 00:00 98.3 F 42 L 20 165/92 H 92 L 04/14/23 23:00 04/14/23 22:00 44 L 20 153/93 H 04/14/23 20:00 60 04/14/23 21:30 48 L 20 92 L 04/14/23 21:00 04/14/23 21:00 43 L 20 139/84 91 L 04/14/23 20:00 43 L 20 121/78 91 L 04/14/23 20:29 20 91 L 04/14/23 20:00 45 L 90 L 04/14/23 20:00 98.0 F 04/14/23 19:00 98 F 48 L 20 126/75 91 L 04/14/23 18:43 45 L 04/14/23 18:43 45 L 04/14/23 18:43 20 93 L 04/14/23 18:42 04/14/23 18:00 20 04/14/23 18:00 46 L 20 150/94 H 93 L 04/14/23 16:00 40 L 04/14/23 16:00 90 L 04/14/23 17:00 04/14/23 16:00 90 L 04/14/23 17:00 46 L 20 163/97 H 90 L 04/14/23 16:00 43 L 20 147/88 H 90 L 04/14/23 12:00 51 L 04/14/23 15:26 97.8 F 04/14/23 12:00 89 L 04/14/23 15:00 04/14/23 14:00 20 04/14/23 15:00 48 L 20 127/80 90 L 04/14/23 14:00 49 L 20 117/68 91 L 04/14/23 13:00 54 L 20 114/70 91 L 04/14/23 12:00 52 L 20 117/72 89 L 04/14/23 13:35 20 91 L 04/14/23 10:20 20 91 L 04/14/23 13:00 04/14/23 11:45 64 04/14/23 11:45 62 04/14/23 11:31 97.8 F 04/14/23 10:00 04/14/23 11:00 54 L 20 110/67 88 L 04/14/23 11:00 04/14/23 10:00 48 L 20 132/81 91 L O2 Del Method FiO2 04/15/23 08:55 Mechanical Ventilation 04/15/23 08:00 Mechanical Ventilation 90 04/15/23 08:00 Mechanical Ventilation 90 04/15/23 08:00 Mechanical Ventilation 90 04/15/23 08:00 04/15/23 06:00 Mechanical Ventilation 90 04/15/23 06:01 04/15/23 06:01 04/15/23 06:01 Mechanical Ventilation 90 04/15/23 06:01 90 04/15/23 04:50 Mechanical Ventilation 90 04/15/23 04:45 Mechanical Ventilation 90 04/15/23 04:40 Mechanical Ventilation 90 04/15/23 04:00 04/15/23 04:00 Mechanical Ventilation 90 04/15/23 04:00 04/15/23 04:00 04/15/23 07:00 Mechanical Ventilation 90 04/15/23 07:00 Mechanical Ventilation 04/15/23 05:00 Mechanical Ventilation 04/15/23 05:00 Mechanical Ventilation 90 04/15/23 03:00 Mechanical Ventilation 04/15/23 03:00 Mechanical Ventilation 90 04/15/23 02:00 Mechanical Ventilation 90 04/15/23 00:00 Mechanical Ventilation 90 04/15/23 00:49 Mechanical Ventilation 04/15/23 00:00 04/15/23 00:00 Mechanical Ventilation 90 04/14/23 23:50 04/14/23 23:50 04/14/23 23:50 90 04/14/23 23:00 Mechanical Ventilation 90 04/15/23 01:00 Mechanical Ventilation 90 04/15/23 00:00 Mechanical Ventilation 90 04/14/23 23:00 Mechanical Ventilation
--- NOTE | 2023-04-15 09:51 | EXP.PULM.PN ---
Subjective *Date: 04/15/23 *Time: 12:47 Interval history: No acute respiratory events overnight. Pulmonology Exam Inpatient Vital signs and Labs for Last 24 Hours: Temp Pulse Resp BP Pulse Ox O2 Del Method O2 Flow Rate 97.7 F 47 L 25 H 150/96 H 88 L Mechanical Ventilation 100 04/15/23 08:00 04/15/23 08:00 04/15/23 09:25 04/15/23 08:00 04/15/23 09:25 04/15/23 08:55 04/12/23 20:20 FiO2 90 04/15/23 09:25 Laboratory Results - last 24 hr 04/14/23 10:52: POC Glucose 211 H 04/14/23 16:14: POC Glucose 160 H 04/14/23 21:19: POC Glucose 164 H 04/15/23 05:18: POC Glucose 230 H 04/15/23 05:20: WBC 14.2 H, RBC 5.44, Hgb 17.6, Hct 54.5 H, MCV 100.2 H, MCH 32.3 H, MCHC 32.2, RDW 15.0, Plt Count 144, MPV 8.7, Neut % (Auto) 90.5 H, Lymph % (Auto) 2.5 L, [place] % (Auto) 6.9, Eos % (Auto) 0.1, Baso % (Auto) 0.1, Neut # (Auto) 12.9 H, Lymph # (Auto) 0.3 L, [place] # (Auto) 1.0, Eos # (Auto) 0.0, Baso # (Auto) 0.0, Total Counted 100, Neutrophils % (Manual) 95 H, Lymphocytes % (Manual) 3 L, Monocytes % (Manual) 2, Platelet Estimate Slight decrease, RBC Morphology Normal, Sodium 136, Potassium 3.7, Chloride 100, Carbon Dioxide 32 H, Anion Gap 7.7, BUN 30 H, Creatinine 0.70, Estimated Creat Clear 167, Estimated GFR 117, Est GFR ( Amer) 141, Glucose 254 H, Calcium 7.0 L, Magnesium 2.2, Total Bilirubin 1.5 H, AST 36, ALT 35, Alkaline Phosphatase 83, Total Protein 5.8 L, Albumin 3.1 L, Globulin 2.7, Albumin/Globulin Ratio 1.1 04/15/23 07:57: Specimen Source Right radial, O2 % 90%, ABG pH 7.46 H, ABG pCO2 43.0, ABG pO2 69.6 L, ABG HCO3 29.6 H, ABG Total CO2 30.9 H, ABG O2 Saturation 95, ABG Base Excess 5.6 H, Vent Rate 20, Tidal Volume 440, PEEP 10 I & O for Labs for Last 24 Hours: Intake & Output 04/12/23 04/13/23 04/14/23 04/15/23 23:59 23:59 23:59 23:59 Intake Total 2031.183 / 2370.183 2936.909 / 2985.909 2602.882 / 2698.382 1518.60 / 1518.60 Output Total 2125 / 2175 2915 / 3015 2140 / 2200 605 / 605 Balance -93.817 / 195.183 21.909 / -29.091 462.882 / 498.382 913.60 / 913.60 Weight 215 lb 9.793 oz 222 lb 10.67 oz 220 lb 7.396 oz 220 lb 7.396 oz Constitutional: Present severe distress Comment:: Intubated and Sedated Head: Present normocephalic and atraumatic Neck: Present normal inspection and trachea midline Respiratory: Present patient mechanically ventilated, prolonged expiratory phase, respiratory distress and rhonchi; Absent wheezes Cardiac: Present S1/S2 and Tachycardia GI: Present soft; Absent distention or tenderness Skin: Present intact; Absent cyanosis Neuro: Absent alert, awake or oriented x 3 Comment:: Intubated and sedated Extremities: Present normal inspection; Absent clubbing or cyanosis Psychiatric: Present unable to assess Assessment and Plan *Assessment and plan (1) Acute respiratory failure with hypoxia and hypercarbia: Status: Acute Category: Medical Code(s): J96.01 - Acute respiratory failure with hypoxia; J96.02 - Acute respiratory failure with hypercapnia (2) Pneumonia: Status: Acute Qualifiers: Pneumonia type: due to unspecified organism Laterality: right Lung location: lower lobe of lung Qualified Code(s): J18.9 - Pneumonia, unspecified organism Category: Medical Code(s): J18.9 - Pneumonia, unspecified organism (3) On mechanically assisted ventilation: Status: Acute Category: Medical Code(s): Z99.11 - Dependence on respirator [ventilator] status Plan Mr. Kwan is a 57-year-old male history of tobacco abuse, severe sleep apnea AHI- 57, presented to the hospital over the weekend complaining of vomiting and dizziness he had admission hospital denies any chest pain or shortness of breath. Patient was admitted and was being managed for acute kidney injury on elevated troponins. CTA upon admission, no evidence of pulmonary embolism. No dense consolidations or airspace disease noted. Mild lower lobe groundglass opacities and subpleura
--- NOTE | 2023-04-15 10:01 | EXP.CARD.PN ---
Subjective Subjective Date: 04/22/23 Time: 08:00 Principal diagnosis: acute respiratory failure Interval history: Patient remains intubated and sedated. FiO2 90% PEEP 10. Morning labs reviewed. Chest x-ray this morning shows stable bibasilar atelectasis and effusion. Adequate urine output noted. Exam Data for Last 24 hours Vital signs and Labs for Last 24 Hours: Temp Pulse Resp BP Pulse Ox O2 Del Method O2 Flow Rate 97.7 F 45 L 25 H 155/94 H 88 L Mechanical Ventilation 100 04/15/23 08:00 04/15/23 09:00 04/15/23 09:25 04/15/23 09:00 04/15/23 09:25 04/15/23 09:00 04/12/23 20:20 FiO2 90 04/15/23 09:55 Laboratory Results - last 24 hr 04/14/23 10:52: POC Glucose 211 H 04/14/23 16:14: POC Glucose 160 H 04/14/23 21:19: POC Glucose 164 H 04/15/23 05:18: POC Glucose 230 H 04/15/23 05:20: WBC 14.2 H, RBC 5.44, Hgb 17.6, Hct 54.5 H, MCV 100.2 H, MCH 32.3 H, MCHC 32.2, RDW 15.0, Plt Count 144, MPV 8.7, Neut % (Auto) 90.5 H, Lymph % (Auto) 2.5 L, [place] % (Auto) 6.9, Eos % (Auto) 0.1, Baso % (Auto) 0.1, Neut # (Auto) 12.9 H, Lymph # (Auto) 0.3 L, [place] # (Auto) 1.0, Eos # (Auto) 0.0, Baso # (Auto) 0.0, Total Counted 100, Neutrophils % (Manual) 95 H, Lymphocytes % (Manual) 3 L, Monocytes % (Manual) 2, Platelet Estimate Slight decrease, RBC Morphology Normal, Sodium 136, Potassium 3.7, Chloride 100, Carbon Dioxide 32 H, Anion Gap 7.7, BUN 30 H, Creatinine 0.70, Estimated Creat Clear 167, Estimated GFR 117, Est GFR ( Amer) 141, Glucose 254 H, Calcium 7.0 L, Magnesium 2.2, Total Bilirubin 1.5 H, AST 36, ALT 35, Alkaline Phosphatase 83, Total Protein 5.8 L, Albumin 3.1 L, Globulin 2.7, Albumin/Globulin Ratio 1.1 04/15/23 07:57: Specimen Source Right radial, O2 % 90%, ABG pH 7.46 H, ABG pCO2 43.0, ABG pO2 69.6 L, ABG HCO3 29.6 H, ABG Total CO2 30.9 H, ABG O2 Saturation 95, ABG Base Excess 5.6 H, Vent Rate 20, Tidal Volume 440, PEEP 10 I & O for Last 24 hours: Intake & Output 04/12/23 04/13/23 04/14/23 04/15/23 23:59 23:59 23:59 23:59 Intake Total 2031.183 / 2370.183 2936.909 / 2985.909 2602.882 / 2698.382 1518.60 / 1518.60 Output Total 2125 / 2175 2915 / 3015 2140 / 2200 660 / 660 Balance -93.817 / 195.183 21.909 / -29.091 462.882 / 498.382 858.60 / 858.60 Weight 215 lb 9.793 oz 222 lb 10.67 oz 220 lb 7.396 oz 220 lb 7.396 oz Constitutional Constitutional: no acute distress Comments: Intubated and sedated *Routine Respiratory Exam Respiratory: Present wheezes and symmetric chest movement *Routine Cardiovascular Exam Cardiovascular: Present RRR, Normal S1 and Normal S2 *Routine Abdominal Exam Abdominal: Present soft and normoactive bowel sounds; Absent tenderness *Routine Extremities Exam Extremities: Present normal capillary refill; Absent edema *Routine Skin Exam Skin: Present intact, dry and warm Detailed Neck Exam: Thyroids Thyroid: Absent bruit Progress Note: A&P Assessment and plan (1) Acute respiratory failure with hypoxia and hypercarbia: Status: Acute (2) On mechanically assisted ventilation: Status: Acute (3) Non-ST elevation [place] (NSTEMI): Status: Acute (4) SAUD (acute kidney injury): Status: Acute (5) Nausea & vomiting: Status: Acute (6) Diabetes mellitus: Status: Acute (7) Acute dehydration: Status: Acute (8) Polycythemia vera: Problem details: Awaiting evaluation by hematology oncology at [facility]. Status: Chronic (9) Obstructive sleep apnea syndrome: Status: Chronic (10) CAD (coronary atherosclerotic disease): Problem details: Recent stent procedure Status: Chronic (11) GERD (gastroesophageal reflux disease): Status: Acute Assessment and Plan Assessment and Plan for All Diagnoses:: Coronary artery disease Acute myocardial injury Bradycardia -Troponin 0.41 trending up to 2.41 in the setting of acute illness with nausea, vomiting, respiratory failure and SAUD. -EKG negative for acute isch
[2023-04-15 11:35] LABS: POC Glucose,Bedside 235 (70-110)
[2023-04-15 13:10] LABS: Legionella pneumophila Urinary Negative (Negative)
--- NOTE | 2023-04-15 13:37 | DIET.NUTRFU ---
Patient is now at goal rate TF glucerna at 65ml/hr ATC providing 1560kcal, 65gm protein and 1330ml/day. Yesterday patient was given 197ml of propofol providing 217.58kcal. Flush is 150ml Q6H= 600ml/day, total fluid of 1830ml/day. Propofol provided yesterday was 123ml/135kcal. Will continue at current TF rate. Labs reviewed, hydration WNL, BUN still elevated at 30H and BS at 254. Insulin ordered. Had BM 07/16 and urine outout continues to be good. [employer] ordered diuretic tx today. Weight has been fairly stable.
[2023-04-15 14:16] LABS: Body Fluid Culture, Sterile Not indicated. (.); Organism ID Not indicated. (.); Specimen Source Urine (.); Streptococcus pneumoniae Ag Negative (Negative)
[2023-04-15 16:50] LABS: POC Glucose,Bedside 218 (70-110)
--- NOTE | 2023-04-15 18:43 | EXP.ACUTE.PN ---
Subjective *Date: 04/15/23 *Time: 18:43 Interval history: Remains sedated and intubated. Current vent settings FiO2 80%, volume 440, rate 20, PEEP 10. Tolerating tube feeds overnight at goal of 65 cc an hour. Has had 1 bowel movement and is having adequate urine output. Remains afebrile and hemodynamically stable. Medical Exam Vital signs and Labs for Last 24 Hours: Vital Signs Temp Pulse Pulse Pulse Resp BP Pulse Ox 04/15/23 18:00 44 L 20 157/97 H 90 L 04/15/23 17:00 41 L 20 155/91 H 91 L 04/15/23 16:00 47 L 20 145/90 H 91 L 04/15/23 15:00 47 L 20 123/79 91 L 04/15/23 18:00 04/15/23 17:00 04/15/23 15:00 04/15/23 17:42 43 L 04/15/23 17:42 43 L 04/15/23 17:42 20 91 L 04/15/23 17:42 91 L 04/15/23 16:00 97.6 F 04/15/23 16:00 40 L 04/15/23 12:00 50 L 04/15/23 14:38 20 92 L 04/15/23 14:38 92 L 04/15/23 14:00 54 L 20 131/83 92 L 04/15/23 13:53 92 L 04/15/23 13:00 47 L 22 130/76 93 L 04/15/23 13:00 04/15/23 13:26 92 L 04/15/23 11:00 04/15/23 12:00 97.8 F 45 L 20 141/82 H 88 L 04/15/23 11:00 48 L 20 141/88 H 88 L 04/15/23 11:03 47 L 04/15/23 11:03 45 L 04/15/23 11:03 88 L 04/15/23 11:03 20 88 L 04/15/23 10:00 93 L 04/15/23 10:00 04/15/23 08:00 50 L 04/15/23 10:00 53 L 20 132/82 91 L 04/15/23 09:55 04/15/23 09:00 45 L 20 155/94 H 95 04/15/23 09:25 25 H 88 L 04/15/23 08:55 04/15/23 08:00 47 L 20 150/96 H 94 L 04/15/23 08:00 94 L 04/15/23 08:00 94 L 04/15/23 08:00 97.7 F 04/15/23 06:00 43 L 20 162/91 H 92 L 04/15/23 06:01 44 L 04/15/23 06:01 41 L 04/15/23 06:01 94 L 04/15/23 06:01 20 94 L 04/15/23 04:50 48 L 20 94 L 04/15/23 04:45 49 L 20 93 L 04/15/23 04:40 50 L 20 94 L 04/15/23 04:00 60 04/15/23 04:00 48 L 20 95 04/15/23 04:00 40 L 04/15/23 04:00 97.3 F L 04/15/23 07:00 43 L 20 153/91 H 92 L 04/15/23 07:00 04/15/23 05:00 04/15/23 05:00 45 L 20 139/87 93 L 04/15/23 03:00 04/15/23 03:00 45 L 20 143/85 H 94 L 04/15/23 02:00 44 L 20 139/87 95 04/15/23 00:00 42 L 95 04/15/23 00:49 04/15/23 00:00 40 L 04/15/23 00:00 92 L 04/14/23 23:50 39 L 04/14/23 23:50 39 L 04/14/23 23:50 20 92 L 04/14/23 23:00 41 L 20 157/91 H 92 L 04/15/23 01:00 45 L 20 140/87 95 04/15/23 00:00 98.3 F 42 L 20 165/92 H 92 L 04/14/23 23:00 04/14/23 22:00 44 L 20 153/93 H 04/14/23 20:00 60 04/14/23 21:30 48 L 20 92 L 04/14/23 21:00 04/14/23 21:00 43 L 20 139/84 91 L 04/14/23 20:00 43 L 20 121/78 91 L 04/14/23 20:29 20 91 L 04/14/23 20:00 45 L 90 L 04/14/23 20:00 98.0 F 04/14/23 19:00 98 F 48 L 20 126/75 91 L O2 Del Method FiO2 04/15/23 18:00 Mechanical Ventilation 60 04/15/23 17:00 Mechanical Ventilation 60 04/15/23 16:00 Mechanical Ventilation 60 04/15/23 15:00 Mechanical Ventilation 70 04/15/23 18:00 60 04/15/23 17:00 Mechanical Ventilation 04/15/23 15:00 Mechanical Ventilation 04/15/23 17:42 04/15/23 17:42 04/15/23 17:42 60 04/15/23 17:42 Mechanical Ventilation 60 04/15/23 16:00 04/15/23 16:00 04/15/23 12:00 04/15/23 14:38 60 04/15/23 14:38 Mechanical Ventilation 70 04/15/23 14:00 Mechanical Ventilation 70 04/15/23 13:53 70 04/15/23 13:00 Mechanical Ventilation 70 04/15/23 13:00 Mechanical Ventilation 04/15/23 13:26 Mechanical Ventilation 80 04/15/23 11:00 Mechanical Ventilation 04/15/23 12:00 Mechanical Ventilation 80 04/15/23 11:00 Mechanical Ventilation 8
[2023-04-15 20:26] LABS: POC Glucose,Bedside 199 (70-110)
[2023-04-16] VITALS (34 sets, daily range): BP systolic 119–226; BP diastolic 69–123; PULSE 42–109; RESP 12–24; TEMP 36.2–36.8; O2SAT 84–93; BMI 13.5
[2023-04-16 05:54] LABS: POC Glucose,Bedside 285 (70-110)
[2023-04-16 06:41] LABS: Basophils % 0.1 % (0.1-2.0); Eosinophils % 0.1 % (0.1-12.0); Hematocrit 54.9 % (42.0-52.0); Hemoglobin 17.7 g/dL (14.1-18.0); Lymphocytes # 0.4 K/mm3 (0.7-4.5); Lymphocytes % 2.4 % (10-50); Mean Corpuscular HGB Conc 32.2 g/dL (31.8-35.4); Mean Corpuscular Hemoglobin 32.7 pg (27.0-31.2); Mean Corpuscular Volume 101.5 fl (80-94); Mean Platelet Volume 8.8 fl (7.4-10.4); Monocytes # 1.3 K/mm3 (0.1-1.0); Monocytes % 7.4 % (1.7-9.3); Neutrophils # 15.4 K/mm3 (1.8-7.8); Neutrophils % 90.1 % (37.0-80.0); Platelet Count 145 K/mm3 (142-424); White Blood Count 17.1 K/mm3 (4.8-10.8)
[2023-04-16 06:47] LABS: MANUAL DIFFERENTIAL MANUAL DIFFERENTIAL (MANUAL DIFF)
[2023-04-16 06:53] LABS: Chloride 99 mmol/L (98-107); Potassium 3.8 mmoL/L (3.5-5.1); Sodium 134 mmol/L (136-145)
[2023-04-16 06:56] LABS: Alanine Aminotransferase 34 U/L (12-78); Albumin Level 3.1 g/dl (3.5-5.0); Albumin/Globulin Ratio 1.2 (1.1-1.8); Alkaline Phosphatase 82 U/L (38-126); Anion Gap 7.8 mEq/L (5-15); Aspartate Amino Transferase 31 U/L (17-59); Bilirubin,Total 1.4 mg/dl (0.2-1.3); Blood Urea Nitrogen 27 mg/dl (9-20); Carbon Dioxide 31 mmol/L (22.0-30.0); Creatinine Clearance Estimated 88 mL/min (50-200); Estimated Glomerular Filt Rate 139 ml/min (>60); GFR (African American) 169 ML/MIN (>60); Globulin 2.6 g/dL (1.3-3.2); Glucose 259 mg/dl (74-100); Total Protein,Serum 5.7 g/dl (6.3-8.2)
[2023-04-16 07:23] LABS: Magnesium 2.2 mg/dl (1.6-2.3); Phosphorous 2.7 mg/dl (2.5-4.5)
[2023-04-16 08:12] LABS: Lymphocytes % 2 % (10-50); Macrocytosis 1+; Monocytes % 1 % (2-9); Neutrophils % 97 % (42-76); Platelet Estimate Normal; Total Cells Counted 100
--- NOTE | 2023-04-16 09:06 | EXP.PHA.PN ---
Subjective *Date: 04/16/23 *Time: 09:06 Medical Exam Vital signs and Labs for Last 24 Hours: Vital Signs Temp Pulse Pulse Resp BP Pulse Ox O2 Del Method 04/16/23 08:00 98.1 F 04/16/23 08:00 98.1 F 51 L 24 164/93 H 93 L Mechanical Ventilation 04/16/23 07:00 57 L 20 159/95 H 92 L Mechanical Ventilation 04/16/23 07:00 Mechanical Ventilation 04/16/23 06:00 04/16/23 06:00 45 L 20 156/93 H 89 L Mechanical Ventilation 04/16/23 05:30 48 L 04/16/23 05:30 48 L 04/16/23 05:30 20 90 L 04/16/23 05:00 50 L 20 152/88 H 90 L Mechanical Ventilation 04/16/23 05:00 Mechanical Ventilation 04/16/23 04:00 97.2 F L 04/16/23 04:00 46 L 04/16/23 00:00 42 L 04/16/23 04:00 48 L 20 163/100 H 89 L Mechanical Ventilation 04/16/23 04:00 46 L 20 89 L Mechanical Ventilation 04/16/23 04:05 20 89 L 04/16/23 03:00 44 L 20 162/97 H 89 L Mechanical Ventilation 04/16/23 03:00 Mechanical Ventilation 04/16/23 02:00 43 L 20 162/95 H 91 L Mechanical Ventilation 04/16/23 02:06 20 91 L 04/16/23 01:00 46 L 20 141/84 H 90 L Mechanical Ventilation 04/16/23 01:00 Mechanical Ventilation 04/16/23 00:00 44 L 20 90 L Mechanical Ventilation 04/16/23 00:00 98.3 F 04/16/23 00:16 43 L 04/16/23 00:16 58 L 04/16/23 00:16 20 91 L 04/15/23 23:00 44 L 20 141/87 H 90 L Mechanical Ventilation 04/15/23 23:00 Mechanical Ventilation 04/15/23 20:00 50 L 04/15/23 22:00 46 L 18 129/79 90 L Mechanical Ventilation 04/15/23 22:00 04/15/23 21:45 20 89 L 04/15/23 20:00 43 L 20 139/81 89 L Mechanical Ventilation 04/15/23 21:00 52 L 20 145/82 H 90 L Mechanical Ventilation 04/15/23 21:00 Mechanical Ventilation 04/15/23 20:00 42 L 20 89 L Mechanical Ventilation 04/15/23 20:00 97.0 F L 04/15/23 19:51 20 89 L 04/15/23 18:00 44 L 20 157/97 H 90 L Mechanical Ventilation 04/15/23 17:00 41 L 20 155/91 H 91 L Mechanical Ventilation 04/15/23 18:56 44 L 20 127/78 89 L Mechanical Ventilation 04/15/23 18:54 Mechanical Ventilation 04/15/23 16:00 47 L 20 145/90 H 91 L Mechanical Ventilation 04/15/23 15:00 47 L 20 123/79 91 L Mechanical Ventilation 04/15/23 18:00 04/15/23 17:00 Mechanical Ventilation 04/15/23 15:00 Mechanical Ventilation 04/15/23 17:42 43 L 04/15/23 17:42 43 L 04/15/23 17:42 20 91 L 04/15/23 17:42 91 L Mechanical Ventilation 04/15/23 16:00 97.6 F 04/15/23 16:00 40 L 04/15/23 12:00 50 L 04/15/23 14:38 20 92 L 04/15/23 14:38 92 L Mechanical Ventilation 04/15/23 14:00 54 L 20 131/83 92 L Mechanical Ventilation 04/15/23 13:53 92 L 04/15/23 13:00 47 L 22 130/76 93 L Mechanical Ventilation 04/15/23 13:00 Mechanical Ventilation 04/15/23 13:26 92 L Mechanical Ventilation 04/15/23 11:00 Mechanical Ventilation 04/15/23 12:00 97.8 F 45 L 20 141/82 H 88 L Mechanical Ventilation 04/15/23 11:00 48 L 20 141/88 H 88 L Mechanical Ventilation 04/15/23 11:03 47 L 04/15/23 11:03 45 L 04/15/23 11:03 88 L Mechanical Ventilation 04/15/23 11:03 20 88 L 04/15/23 10:00 93 L Mechanical Ventilation 04/15/23 10:00 04/15/23 10:00 53 L 20 132/82 91 L Mechanical Ventilation 04/15/23 09:55 04/15/23 09:25 25 H 88 L FiO2 04/16/23 08:00 04/16/23 08:00 60 04/16/23 07:00 60 04/16/23 07:00 04/16/23 06:00 60 04/16/23 06:00 60 04/16/23 05:30 04/16/23 05:30 04/16/23 05:30 60 04/16/23 05:00 60 04/16/23 05:00 04/16/23 04:00 04/16/23 04:00 04/16/23 00:00 04/16/23 04:00 60 04/16/23 04:00 60 04/16/23 04:05 60 04/16/23 03:00 60 04/16/23 03:00
--- NOTE | 2023-04-16 09:38 | EXP.PULM.PN ---
Subjective *Date: 04/16/23 *Time: 11:21 Interval history: No acute respiratory vents overnight. Improving oxygen requirements Pulmonology Exam Inpatient Vital signs and Labs for Last 24 Hours: Temp Pulse Resp BP Pulse Ox O2 Del Method O2 Flow Rate 98.1 F 51 L 24 164/93 H 93 L Mechanical Ventilation 100 04/16/23 08:00 04/16/23 08:00 04/16/23 08:00 04/16/23 08:00 04/16/23 08:00 04/16/23 08:00 04/12/23 20:20 FiO2 60 04/16/23 08:00 Laboratory Results - last 24 hr 04/12/23 14:15: Fluid Culture Not indicated., Ur L.pneumophila Ag Negative, S. pneumoniae Antigen Negative, S. pneumoniae Ag Source Urine, Organism ID Not indicated. 04/15/23 11:08: POC Glucose 235 H 04/15/23 16:43: POC Glucose 218 H 04/15/23 20:07: POC Glucose 199 H 04/16/23 05:24: WBC 17.1 H, RBC 5.40, Hgb 17.7, Hct 54.9 H, MCV 101.5 H, MCH 32.7 H, MCHC 32.2, RDW 15.0, Plt Count 145, MPV 8.8, Neut % (Auto) 90.1 H, Lymph % (Auto) 2.4 L, [place] % (Auto) 7.4, Eos % (Auto) 0.1, Baso % (Auto) 0.1, Neut # (Auto) 15.4 H, Lymph # (Auto) 0.4 L, [place] # (Auto) 1.3 H, Eos # (Auto) 0.0, Baso # (Auto) 0.0, Total Counted 100, Neutrophils % (Manual) 97 H, Lymphocytes % (Manual) 2 L, Monocytes % (Manual) 1 L, Platelet Estimate Normal, Macrocytosis 1+, Sodium 134 L, Potassium 3.8, Chloride 99, Carbon Dioxide 31 H, Anion Gap 7.8, BUN 27 H, Creatinine 0.60 L, Estimated Creat Clear 88, Estimated GFR 139, Est GFR ( Amer) 169, Glucose 259 H, Calcium 7.0 L, Phosphorus 2.7, Magnesium 2.2, Total Bilirubin 1.4 H, AST 31, ALT 34, Alkaline Phosphatase 82, Total Protein 5.7 L, Albumin 3.1 L, Globulin 2.6, Albumin/Globulin Ratio 1.2 04/16/23 05:44: POC Glucose 285 H I & O for Labs for Last 24 Hours: Intake & Output 04/13/23 04/14/23 04/15/23 04/16/23 23:59 23:59 23:59 23:59 Intake Total 2936.909 / 2985.909 2602.882 / 2698.382 4523.40 / 5206.40 1798.2 / 1798.2 Output Total 2915 / 3015 2140 / 2200 4005 / 4080 600 / 600 Balance 21.909 / -29.091 462.882 / 498.382 518.40 / 1126.40 1198.2 / 1198.2 Weight 222 lb 10.67 oz 220 lb 7.396 oz 220 lb 7.396 oz 100 lb Microbiology Reports for the Last 24 Hours: Microbiology 04/12/23 20:15 Nose - Nasal MRSA Culture - Final Constitutional: Present severe distress Comment:: Intubated and Sedated Head: Present normocephalic and atraumatic Neck: Present normal inspection and trachea midline Respiratory: Present patient mechanically ventilated, prolonged expiratory phase, respiratory distress and rhonchi; Absent wheezes Cardiac: Present S1/S2 and Tachycardia GI: Present soft; Absent distention or tenderness Skin: Present intact; Absent cyanosis Neuro: Absent alert, awake or oriented x 3 Comment:: Intubated and sedated Extremities: Present normal inspection; Absent clubbing or cyanosis Psychiatric: Present unable to assess Assessment and Plan *Assessment and plan (1) Acute respiratory failure with hypoxia and hypercarbia: Status: Acute Category: Medical Code(s): J96.01 - Acute respiratory failure with hypoxia; J96.02 - Acute respiratory failure with hypercapnia (2) Pneumonia: Status: Acute Qualifiers: Laterality: right Lung location: lower lobe of lung Pneumonia type: due to unspecified organism Qualified Code(s): J18.9 - Pneumonia, unspecified organism Category: Medical Code(s): J18.9 - Pneumonia, unspecified organism (3) On mechanically assisted ventilation: Status: Acute Category: Medical Code(s): Z99.11 - Dependence on respirator [ventilator] status Plan Mr. Kwan is a 57-year-old male history of tobacco abuse, severe sleep apnea AHI- 57, presented to the hospital over the weekend complaining of vomiting and dizziness he had admission hospital denies any chest pain or shortness of breath. Patient was admitted and was being managed for acute kidney injury on elevated troponins. CTA upon admission, no evidence of pulmonary embolism. No dense consolidatio
--- NOTE | 2023-04-16 09:39 | XR_ITS ---
FINAL REPORT CLINICAL HISTORY: Intubation COMPARISON: 04/15/2023 FINDINGS: SINGLE-VIEW CHEST The heart size is normal. The mediastinum is normal. The endotracheal tube tip terminates at the T4 level. NG tube tip terminates below the diaphragm. There are persistent bibasilar opacities, may represent atelectasis or pneumonia. There is no pneumothorax. IMPRESSION: Lines and tubes as above. Persistent bibasilar atelectasis or pneumonia. Reviewed, Interpreted and Dictated by Cody Ge III, MD Transcribed by Leticia Rojas Authenticated and [facility]
--- NOTE | 2023-04-16 10:08 | EXP.CARD.PN ---
Subjective Subjective Date: 04/16/23 Time: 08:00 Principal diagnosis: acute respiratory failure Interval history: Patient remained stable. PEEP at 5 this morning FiO2 down to 60% tidal volume 440. BG from this morning shows slight improvement. Morning labs reviewed. Exam Data for Last 24 hours Vital signs and Labs for Last 24 Hours: Temp Pulse Resp BP Pulse Ox O2 Del Method O2 Flow Rate 98.1 F 51 L 24 164/93 H 93 L Mechanical Ventilation 100 04/16/23 08:00 04/16/23 08:00 04/16/23 08:00 04/16/23 08:00 04/16/23 08:00 04/16/23 08:00 04/12/23 20:20 FiO2 60 04/16/23 08:00 Laboratory Results - last 24 hr 04/12/23 14:15: Fluid Culture Not indicated., Ur L.pneumophila Ag Negative, S. pneumoniae Antigen Negative, S. pneumoniae Ag Source Urine, Organism ID Not indicated. 04/15/23 11:08: POC Glucose 235 H 04/15/23 16:43: POC Glucose 218 H 04/15/23 20:07: POC Glucose 199 H 04/16/23 05:24: WBC 17.1 H, RBC 5.40, Hgb 17.7, Hct 54.9 H, MCV 101.5 H, MCH 32.7 H, MCHC 32.2, RDW 15.0, Plt Count 145, MPV 8.8, Neut % (Auto) 90.1 H, Lymph % (Auto) 2.4 L, [place] % (Auto) 7.4, Eos % (Auto) 0.1, Baso % (Auto) 0.1, Neut # (Auto) 15.4 H, Lymph # (Auto) 0.4 L, [place] # (Auto) 1.3 H, Eos # (Auto) 0.0, Baso # (Auto) 0.0, Total Counted 100, Neutrophils % (Manual) 97 H, Lymphocytes % (Manual) 2 L, Monocytes % (Manual) 1 L, Platelet Estimate Normal, Macrocytosis 1+, Sodium 134 L, Potassium 3.8, Chloride 99, Carbon Dioxide 31 H, Anion Gap 7.8, BUN 27 H, Creatinine 0.60 L, Estimated Creat Clear 88, Estimated GFR 139, Est GFR ( Amer) 169, Glucose 259 H, Calcium 7.0 L, Phosphorus 2.7, Magnesium 2.2, Total Bilirubin 1.4 H, AST 31, ALT 34, Alkaline Phosphatase 82, Total Protein 5.7 L, Albumin 3.1 L, Globulin 2.6, Albumin/Globulin Ratio 1.2 04/16/23 05:44: POC Glucose 285 H I & O for Last 24 hours: Intake & Output 04/13/23 04/14/23 04/15/23 04/16/23 23:59 23:59 23:59 23:59 Intake Total 2936.909 / 2985.909 2602.882 / 2698.382 4523.40 / 5206.40 1934.783 / 1934.783 Output Total 2915 / 3015 2140 / 2200 4005 / 4080 600 / 600 Balance 21.909 / -29.091 462.882 / 498.382 518.40 / 1126.40 1334.783 / 1334.783 Weight 222 lb 10.67 oz 220 lb 7.396 oz 220 lb 7.396 oz 100 lb Microbiology Reports for the Last 24 Hours: Microbiology 04/12/23 20:15 Nose - Nasal MRSA Culture - Final Constitutional Constitutional: no acute distress Comments: Intubated and sedated *Routine Respiratory Exam Respiratory: Present wheezes and symmetric chest movement *Routine Cardiovascular Exam Cardiovascular: Present RRR, Normal S1 and Normal S2 *Routine Abdominal Exam Abdominal: Present soft and normoactive bowel sounds; Absent tenderness *Routine Extremities Exam Extremities: Present normal capillary refill; Absent edema *Routine Skin Exam Skin: Present intact, dry and warm Detailed Neck Exam: Thyroids Thyroid: Absent bruit Progress Note: A&P Assessment and plan (1) Acute respiratory failure with hypoxia and hypercarbia: Status: Acute (2) Pneumonia: Status: Acute (3) On mechanically assisted ventilation: Status: Acute Assessment and Plan Assessment and Plan for All Diagnoses:: Coronary artery disease Acute myocardial injury Bradycardia -Troponin 0.41 trending up to 2.41 in the setting of acute illness with nausea, vomiting, respiratory failure and SAUD. -EKG negative for acute ischemic changes -EF 55% in August 2022. Enlarged right ventricle noted. Echo 03/2023: Normal biventricular LV systolic function, moderate to severe RV dilation with moderate RV dysfunction, mild TR, elevated RVSP 40-45mmHG -Continue aspirin 81 mg p.o. daily, Brilinta 90 mg p.o. twice daily atorvastatin 20 mg p.o. daily. Will decrease coreg to 12.5mg BID due to bradycardia. Right sided heart failure/moderate RV dysfunction Moderate to severe RV dilation Elevated RVSP 40-45 Cor pulmonale -Lasix 40mg IV x 1 Acute on chronic respiratory failure Increased oxy
--- NOTE | 2023-04-16 10:29 | PC.NURSE ---
vs at 1000 was taken as pt was being suctioned and on SBT
--- NOTE | 2023-04-16 10:30 | PC.NURSE ---
pt propofol was stopped at 1020 after being weaned for sbt
--- NOTE | 2023-04-16 10:31 | PC.NURSE ---
during assessment of ng tube, it was noted that pt tube had displaced. chest xray was ordered at this time r/t verifying ett and ng tube
[2023-04-16 11:34] LABS: ABG Base Excess 7.6 mmol/L (-2.4-2.3); ABG HCO3 32.6 mmhg (22.0-26.0); ABG Oxygen Saturation 89 % (90-100); ABG PH 7.39 mmol/L (7.35-7.45); ABG PO2 55.7 mmhg (80-100); ABG TCO2 34.3 mmhg (23-27)
--- NOTE | 2023-04-16 11:38 | PC.NURSE ---
courtesy tech note: pt is sitting up in bed at 30 degrees on their right side with heels and arms elevated. family is at BS
[2023-04-16 11:42] LABS: Oxygen 50% %; PEEP 5; Pressure Support 10
[2023-04-16 11:43] LABS: Allen's Test ACCEPTABLE; Source R RADIAL
[2023-04-16 11:44] LABS: ABG PCO2 55.3 mmhg (35.0-45.0)
[2023-04-16 12:22] LABS: POC Glucose,Bedside 170 (70-110)
--- NOTE | 2023-04-16 12:25 | PC.NURSE ---
1136 notified Elva that pt bp is 221/122. pt has received 10mg hydralazine iv and lisinopril 40mg NG. cannot have hydralazine again for 4 more hours. also notified her that pt coreg was held this am r/t HR of 46. Per elva give another 10mg hydralazine now and give coreg now as well. [address] Shaw in regards to pt SBT. notified that pt appears to be tolerating SBT physically. objectively pt is not tolerating SBT. HR noted to be in the 120's. bp 221/122. per Dr Shaw, pt not to be extubated today. restart pt sedation at low rate. propofol 20mcg and fentanyl 25mcg
--- NOTE | 2023-04-16 13:07 | DIET.NUTRFU ---
Reviewed patient in rounds was hoping to extubate today but continues fail the SBT. Continues on sedation medication, propofol provided 150ml 04/15 providing 165kcal. TF continues at goal rate of 65ml/hr, tolerating no residuals. Labs reviewed Na 134L, BUN 27H, Glucose elevated 259. Insulin in place and diabetic formula. Once extubated bedside swallow will determine safe oral intake. will continue to follow
--- NOTE | 2023-04-16 13:43 | PC.NURSE ---
1320 pt ng tube became dislodged r/t pt sweating.
--- NOTE | 2023-04-16 14:42 | PC.NURSE ---
1000 pt SBT started. 1430 pt changed back to AC mode
--- NOTE | 2023-04-16 15:46 | PC.WOUNDNOTE ---
Skin assessment at start of shift.
--- NOTE | 2023-04-16 17:20 | EXP.ACUTE.PN ---
Subjective *Date: 04/16/23 *Time: 18:26 Interval history: Patient showing gradual improvement. Weaned to 50% oxygen this morning on rounds. Tolerating tube feeds. Remains afebrile. Blood pressure somewhat more elevated but not frankly symptomatic. Interactive when sedation is weaned. Having increased secretions in ET tube. Adequate urine output. Daily bowel movements. Medical Exam Vital signs and Labs for Last 24 Hours: Vital Signs Temp Pulse Pulse Resp BP BP Pulse Ox 04/16/23 12:00 90 04/16/23 16:00 97.2 F L 04/16/23 15:00 04/16/23 15:00 68 20 153/97 H 90 L 04/16/23 14:30 20 04/16/23 14:00 12 04/16/23 10:00 12 04/16/23 14:30 75 18 154/86 H 90 L 04/16/23 13:00 04/16/23 13:00 95 H 16 214/97 H 88 L 04/16/23 12:00 97 H 16 212/98 H 91 L 04/16/23 08:00 50 L 04/16/23 12:00 97.4 F L 04/16/23 12:05 98 H 04/16/23 12:05 100 H 04/16/23 08:15 46 L 93 L 04/16/23 10:00 86 L 04/16/23 11:13 109 H 16 226/113 H 90 L 04/16/23 11:00 04/16/23 09:00 04/16/23 10:00 72 16 182/117 H 86 L 04/16/23 09:00 47 L 20 170/102 H 91 L 04/16/23 08:00 98.1 F 04/16/23 08:00 98.1 F 51 L 24 164/93 H 93 L 04/16/23 07:00 57 L 20 159/95 H 92 L 04/16/23 07:00 04/16/23 06:00 04/16/23 06:00 45 L 20 156/93 H 89 L 04/16/23 05:30 48 L 04/16/23 05:30 48 L 04/16/23 05:30 20 90 L 04/16/23 05:00 50 L 20 152/88 H 90 L 04/16/23 05:00 04/16/23 04:00 97.2 F L 04/16/23 04:00 46 L 04/16/23 00:00 42 L 04/16/23 04:00 48 L 20 163/100 H 89 L 04/16/23 04:00 46 L 20 89 L 04/16/23 04:05 20 89 L 04/16/23 03:00 44 L 20 162/97 H 89 L 04/16/23 03:00 04/16/23 02:00 43 L 20 162/95 H 91 L 04/16/23 02:06 20 91 L 04/16/23 01:00 46 L 20 141/84 H 90 L 04/16/23 01:00 04/16/23 00:00 44 L 20 90 L 04/16/23 00:00 98.3 F 04/16/23 00:16 43 L 04/16/23 00:16 58 L 04/16/23 00:16 20 91 L 04/15/23 23:00 44 L 20 141/87 H 90 L 04/15/23 23:00 04/15/23 20:00 50 L 04/15/23 22:00 46 L 18 129/79 90 L 04/15/23 22:00 04/15/23 21:45 20 89 L 04/15/23 20:00 43 L 20 139/81 89 L 04/15/23 21:00 52 L 20 145/82 H 90 L 04/15/23 21:00 04/15/23 20:00 42 L 20 89 L 04/15/23 20:00 97.0 F L 04/15/23 19:51 20 89 L 04/15/23 18:00 44 L 20 157/97 H 90 L 04/15/23 18:56 44 L 20 127/78 89 L 04/15/23 18:54 04/15/23 18:00 04/15/23 17:42 43 L 04/15/23 17:42 43 L 04/15/23 17:42 20 91 L 04/15/23 17:42 91 L O2 Del Method FiO2 04/16/23 12:00 04/16/23 16:00 04/16/23 15:00 Mechanical Ventilation 04/16/23 15:00 Mechanical Ventilation 50 04/16/23 14:30 50 04/16/23 14:00 50 04/16/23 10:00 50 04/16/23 14:30 Mechanical Ventilation 50 04/16/23 13:00 Mechanical Ventilation 04/16/23 13:00 Mechanical Ventilation 04/16/23 12:00 Mechanical Ventilation 04/16/23 08:00 04/16/23 12:00 04/16/23 12:05 04/16/23 12:05 04/16/23 08:15 Mechanical Ventilation 60 04/16/23 10:00 60 04/16/23 11:13 Mechanical Ventilation 60 04/16/23 11:00 Mechanical Ventilation 04/16/23 09:00 Mechanical Ventilation 04/16/23 10:00 Mechanical Ventilation 60 04/16/23 09:00 Mechanical Ventilation 60 04/16/23 08:00 04/16/23 08:00 Mechanical Ventilation 60 04/16/23 07:00 Mechanical Ventilation 60 04/16/23 07:00 Mechanical Ventilation 04/16/23 06:00 60 04/16/23 06:00 Mechanical Ventilation 60 04/16/23 05:30 04/16/23 05:30 04/16/23 05:30 60 04/16/23 05:00 Mechanical Ventilation 60 04/16/23 05:00 Mechanical Ventilation 04/16/23 04:00 03/22
[2023-04-16 18:21] LABS: POC Glucose,Bedside 147 (70-110)
--- NOTE | 2023-04-16 19:46 | XR_ITS ---
PROCEDURE INFORMATION: Exam: XR Chest Exam date and time: 04/16/2023 8:15 PM Age: 57 years old Clinical indication: Device placement; Ett placement (vent status); Additional info: Oxygen desat TECHNIQUE: Imaging protocol: Radiologic exam of the chest. Views: 1 view. COMPARISON: CR XR CHEST PORTABLE 04/16/2023 9:46 AM FINDINGS: Limitations: Poor visualization of supportive devices due to inadequate beam penetration. Tubes, catheters and devices: Endotracheal tube tip is poorly visualized due to suboptimal technique. Lungs: See Pleural spaces finding. Pleural spaces: Moderate bilateral pleural effusions and airspace consolidation in the lung bases, not significantly changed from prior exam. No pneumothorax. Heart/Mediastinum: Cardiomediastinal silhouette is unchanged from prior exam. Bones/joints: No evidence of acute osseous abnormality. IMPRESSION: 1. Endotracheal tube tip is poorly visualized due to suboptimal technique. 2. Moderate bilateral pleural effusions and airspace consolidation in the lung bases, not significantly changed from prior exam.
[2023-04-16 20:22] LABS: POC Glucose,Bedside 162 (70-110)
[2023-04-17] VITALS (40 sets, daily range): BP systolic 94–211; BP diastolic 58–131; PULSE 42–75; RESP 9–29; TEMP 36.1–36.7; O2SAT 86–92; BMI 25.4
--- NOTE | 2023-04-17 06:00 | XR_ITS ---
PROCEDURE INFORMATION: Exam: XR Chest Exam date and time: 04/17/2023 6:13 AM Age: 57 years old Clinical indication: Device placement; Ett placement (vent status); Additional info: Pneumonia mechanical ventilation TECHNIQUE: Imaging protocol: Radiologic exam of the chest. Views: 1 view. COMPARISON: CR XR CHEST PORTABLE 04/16/2023 8:15 PM FINDINGS: Tubes, catheters and devices: ET tube and NG tube are in good position. Lungs: Some patchy right lower lung airspace disease as well as left lung base airspace disease both increased since prior. Pleural spaces: Unremarkable. No pleural effusion. No pneumothorax. Heart/Mediastinum: Unremarkable. No cardiomegaly. Bones/joints: Unremarkable. IMPRESSION: Bibasilar airspace disease increasing since prior. ET tube at the level of the clavicular heads.
[2023-04-17 06:12] LABS: POC Glucose,Bedside 172 (70-110)
[2023-04-17 07:39] LABS: Chloride 97 mmol/L (98-107); Potassium 3.7 mmoL/L (3.5-5.1); Sodium 136 mmol/L (136-145)
[2023-04-17 07:41] LABS: Alanine Aminotransferase 32 U/L (12-78); Aspartate Amino Transferase 30 U/L (17-59); Blood Urea Nitrogen 28 mg/dl (9-20); Creatinine Clearance Estimated 166 mL/min (50-200); Estimated Glomerular Filt Rate 139 ml/min (>60); GFR (African American) 169 ML/MIN (>60)
[2023-04-17 07:42] LABS: Albumin Level 3.1 g/dl (3.5-5.0); Albumin/Globulin Ratio 1.1 (1.1-1.8); Alkaline Phosphatase 58 U/L (38-126); Anion Gap 6.7 mEq/L (5-15); Bilirubin,Total 2.1 mg/dl (0.2-1.3); Calcium 7.4 mg/dl (8.4-10.2); Carbon Dioxide 36 mmol/L (22.0-30.0); Globulin 2.8 g/dL (1.3-3.2); Glucose 161 mg/dl (74-100); Magnesium 2.1 mg/dl (1.6-2.3); Total Protein,Serum 5.9 g/dl (6.3-8.2)
[2023-04-17 07:43] LABS: Basophils % 0.1 % (0.1-2.0); Eosinophils % 0.3 % (0.1-12.0); Hematocrit 56.7 % (42.0-52.0); Lymphocytes # 0.6 K/mm3 (0.7-4.5); Lymphocytes % 4.4 % (10-50); Mean Corpuscular HGB Conc 32.1 g/dL (31.8-35.4); Mean Corpuscular Hemoglobin 31.4 pg (27.0-31.2); Mean Corpuscular Volume 97.8 fl (80-94); Mean Platelet Volume 8.5 fl (7.4-10.4); Monocytes # 1.1 K/mm3 (0.1-1.0); Monocytes % 7.8 % (1.7-9.3); Neutrophils # 12.6 K/mm3 (1.8-7.8); Neutrophils % 87.5 % (37.0-80.0); Platelet Count 183 K/mm3 (142-424); White Blood Count 14.4 K/mm3 (4.8-10.8)
[2023-04-17 07:46] LABS: MANUAL DIFFERENTIAL MANUAL DIFFERENTIAL (MANUAL DIFF)
[2023-04-17 08:40] LABS: Hemoglobin 18.2 g/dL (14.1-18.0)
--- NOTE | 2023-04-17 09:39 | EXP.ACUTE.PN ---
Subjective *Date: 04/17/23 *Time: 18:46 Interval history: Patient awake on rounds, performing spontaneous breathing trial. Blood pressure elevated while he is agitated. Saying that his ET tube is uncomfortable, appears to be saying he feels like he is strangling based on his hand movements and asking questions and nodding yes to exam. Afebrile. Had increased oxygen requirement overnight. Adequate urine output in Muhammad. No bowel movement in 24 hours. Significant other at bedside concerned that were not extubating today. Stressed that she would give us till Wednesday. Expressed concern that he is showing slow resolution and to extubate too early would be dangerous. She is adamant that she is gone past her initial 4 days that she promised him which would have been and is giving us to Wednesday for him to be extubatable. Medical Exam Vital signs and Labs for Last 24 Hours: Vital Signs Temp Pulse Pulse Resp BP BP Pulse Ox 04/17/23 08:00 44 L 04/17/23 07:50 97.3 F L 04/17/23 07:00 20 90 L 04/17/23 07:00 42 L 20 149/85 H 90 L 04/17/23 07:00 04/17/23 06:00 44 L 20 135/78 91 L 04/17/23 06:00 91 L 04/17/23 06:00 44 L 04/17/23 06:00 45 L 04/17/23 06:00 91 L 04/17/23 05:00 44 L 20 160/89 H 92 L 04/17/23 05:00 04/17/23 04:00 50 L 04/17/23 04:00 97.4 F L 49 L 20 115/69 90 L 04/17/23 04:00 48 L 90 L 04/17/23 04:23 20 91 L 04/17/23 03:00 51 L 20 109/64 L 90 L 04/17/23 03:00 04/17/23 02:00 51 L 20 116/72 91 L 04/17/23 02:24 20 88 L 04/17/23 01:00 52 L 20 150/105 H 87 L 04/17/23 01:00 04/17/23 00:45 47 L 04/17/23 00:45 45 L 04/17/23 00:45 20 88 L 04/17/23 00:00 51 L 04/17/23 00:00 96.9 F L 49 L 20 113/68 88 L 04/17/23 00:00 45 L 20 88 L 04/16/23 23:00 57 L 20 123/73 89 L 04/16/23 23:00 04/16/23 22:48 20 88 L 04/16/23 22:00 57 L 20 119/69 87 L 04/16/23 22:00 04/16/23 21:00 60 20 137/95 H 89 L 04/16/23 21:00 04/16/23 20:00 20 87 L 04/16/23 20:00 67 04/16/23 20:00 97.3 F L 66 20 162/123 H 89 L 04/16/23 20:42 20 90 L 04/16/23 19:00 61 20 126/87 88 L 04/16/23 18:41 04/16/23 16:00 80 04/16/23 16:00 82 87 L 04/16/23 12:00 97 H 91 L 04/16/23 18:00 67 20 184/103 H 92 L 04/16/23 18:33 65 04/16/23 18:33 62 04/16/23 18:33 22 91 L 04/16/23 18:33 91 L 04/16/23 17:00 04/16/23 17:00 62 20 148/81 H 90 L 04/16/23 16:00 82 20 175/105 H 84 L 04/16/23 12:00 90 04/16/23 16:00 97.2 F L 04/16/23 15:00 04/16/23 15:00 68 20 153/97 H 90 L 04/16/23 14:30 20 04/16/23 14:00 12 04/16/23 10:00 12 04/16/23 14:30 75 18 154/86 H 90 L 04/16/23 13:00 04/16/23 13:00 95 H 16 214/97 H 88 L 04/16/23 12:00 97 H 16 212/98 H 91 L 04/16/23 12:00 97.4 F L 04/16/23 12:05 98 H 04/16/23 12:05 100 H 04/16/23 10:00 86 L 04/16/23 11:13 109 H 16 226/113 H 90 L 04/16/23 11:00 04/16/23 10:00 72 16 182/117 H 86 L O2 Del Method FiO2 04/17/23 08:00 04/17/23 07:50 04/17/23 07:00 60 04/17/23 07:00 Mechanical Ventilation 90 04/17/23 07:00 Mechanical Ventilation 04/17/23 06:00 Mechanical Ventilation 90 04/17/23 06:00 90 04/17/23 06:00 04/17/23 06:00 04/17/23 06:00 Mechanical Ventilation 90 04/17/23 05:00 Mechanical Ventilation 90 04/17/23 05:00 Mechanical Ventilation 04/17/23 04:00 04/17/23 04:00 Mechanical Ventilation 90 04/17/23 04:00 Mechanical Ventilation 90 04/17/23 04:23 89 04/17/23 03:00 Mechanical Ventilation 90 04/17/23 03:00 Mechanical Ventilation 04/17/23 02:00 Mechanical V
--- NOTE | 2023-04-17 09:54 | PC.NURSE ---
Addendum entered by Lila Daly RN 04/17/23 10:29: 0940 propofol decreased to 10mcg 1025 propofol stopped Original Note: at start of shift pt propofol infusing at 50mcg 0800 decreased to 40mcg, sedation continuing per Dr Grace order r/t pt receiving enema [address] Shaw, vent changes per RT, once fio2 at 50% ok to proceed with weaning sedation for SBT. SBT for 2 hrs, obtain ABG. obtain new sputum at this time as well.
--- NOTE | 2023-04-17 10:29 | PC.NURSE ---
Addendum entered by Lila Daly RN 04/17/23 14:39: 1245 propofol increased to 30mcg r/t elevated bp, agitation and coughing against vent. 1300 propofol increased to 40mcg r/t pt agitation. Dr Grace present in room 1315 propofol increased to 50mcg r/t pt agitation and attempting to talk around ETT. Per Dr Grace pt to rest while on AC mode. 1430 propofol decreased to 40mcg Addendum entered by Lila Daly RN 04/17/23 12:42: 1230 pt placed back on rate at this time. fentanyl drip decreased from 75mcg to 50mcg. propofol restarted at 20mcg. Original Note: 1010 SBT started per RT
[2023-04-17 11:31] LABS: Lymphocytes % 10 % (10-50); Monocytes % 5 % (2-9); Neutrophils % 85 % (42-76); Total Cells Counted 100
[2023-04-17 11:32] LABS: Platelet Estimate Normal; RBC Morphology Normal
[2023-04-17 11:51] LABS: POC Glucose,Bedside 126 (70-110)
[2023-04-17 12:09] LABS: ABG Base Excess 6.4 mmol/L (-2.4-2.3); ABG HCO3 29.9 mmhg (22.0-26.0); ABG Oxygen Saturation 89 % (90-100); ABG PCO2 41.3 mmhg (35.0-45.0); ABG PH 7.48 mmol/L (7.35-7.45); ABG TCO2 31.2 mmhg (23-27)
[2023-04-17 12:12] LABS: Allen's Test Acceptable; Oxygen 40% %; PEEP 8; Source Right Radial
--- NOTE | 2023-04-17 12:19 | PC.WOUNDNOTE ---
skin assessment at start of shift
--- NOTE | 2023-04-17 13:08 | XR_ITS ---
PROCEDURE INFORMATION: Exam: XR Chest Exam date and time: 04/17/2023 1:09 PM Age: 57 years old Clinical indication: Device placement; Other: Tube placement; Additional info: Verify placement TECHNIQUE: Imaging protocol: Radiologic exam of the chest. Views: 1 view. COMPARISON: CR XR CHEST PORTABLE 04/17/2023 6:13 AM FINDINGS: Tubes, catheters and devices: The tip of the ET tube is suboptimally visualized secondary to underpenetration. It appears to extend to the level of the sternoclavicular articulation and needs to be advanced. Lungs: Bibasilar atelectasis versus parenchymal scarring. Pleural spaces: Small bilateral pleural effusions. Heart/Mediastinum: Unremarkable. No cardiomegaly. Bones/joints: See Tubes, catheters and devices finding. IMPRESSION: Suboptimal visualization of endotracheal tube. Tip appears to be at the level of the sternoclavicular articulation needs to be advanced.
--- NOTE | 2023-04-17 13:53 | XR_ITS ---
PROCEDURE INFORMATION: Exam: XR Chest Exam date and time: 04/17/2023 1:55 PM Age: 57 years old Clinical indication: Device placement; Ett placement (vent status); Additional info: Ett repositioned TECHNIQUE: Imaging protocol: Radiologic exam of the chest. Views: 1 view. COMPARISON: CR XR CHEST PORTABLE 04/17/2023 1:09 PM FINDINGS: Tubes, catheters and devices: ET tube again suboptimally visualized however is approximately at the level of the aortic arch, approximately 5 cm proximal to the tracheal bifurcation. Lungs: Bibasilar regions of consolidation versus atelectasis. Pleural spaces: Unremarkable. Small bilateral pleural effusions No pneumothorax. Heart/Mediastinum: Unremarkable. No cardiomegaly. Bones/joints: Unremarkable. IMPRESSION: ET tube again suboptimally visualized however is approximately at the level of the aortic arch, approximately 5 cm proximal to the tracheal bifurcation.
--- NOTE | 2023-04-17 13:54 | PC.NURSE ---
Addendum entered by Lila Daly RN 04/17/23 15:14: 1500 Dr Shaw notified this RN that pt ETT needs to be pulled back 1 cm following most recent xray. contacted Erica in RT, ETT repositioned Original Note: [address] Shaw that pt xray shows that tube needs to be advanced. image results read to . Per keyona advance by 3cm then repeat chest xray.
--- NOTE | 2023-04-17 15:16 | PC.NURSE ---
at start of shift pt fentanyl infusing at 75mcg. 1240 pt fentanyl drip decreased to 50mcg
--- NOTE | 2023-04-17 15:45 | PC.NURSE ---
Addendum entered by Lila Daly RN 04/17/23 15:53: during sbt and while pt is awake, pt does not tolerate oral care and will refuse to open his mouth wide enough for staff to swab and suction oral cavity. Original Note: Pt was able to complete SBT this shift, pt volumes were not adequate per RT. pt noted to have RR 9-10. pt hr stayed in the 70-80 range during SBT today. pt bp was noted to be in the 190/200 systolic and 110-120 diastolic. pt was medicated with prn hydralazine. during SBT pt noted to have increased amount of thick secretions coming out of oral cavity. pt noted to have thick secretions in ETT as welll. cuff pressure was checked periodically this shift by RN and RT. amount of air increased as needed. during SBT pt off of propofol but on low dose of fentanyl to help with discomfort and agitation. pt still noted to be agitated, and attempting to talk around ETT which caused increased coughing. pt was able to indicated to MD that he felt he was choking on the tube. position was verified with xray and adjusted per Dr rand recommendations. once pt was placed back on AC mode, sedation was again turned on. pt currently on 40mcg of propofol and 50 mcg of fentanyl. pt is still alert and able to attempt to communicate with staff. pt noted to doze off periodically but is easily awakened by touch. pt brother at bedside at this time.
[2023-04-17 17:23] LABS: POC Glucose,Bedside 119 (70-110)
--- NOTE | 2023-04-17 17:50 | PC.NURSE ---
late entry: [address] Grace, TF stopped on 04/[address] verbal order. pt has had 2 failed SBT at this time, does MD want TF restarted? Per Dr Grace restart TF, but stop them at 0600 in preparation of SBT
[2023-04-17 20:44] LABS: POC Glucose,Bedside 155 (70-110)
[2023-04-18] VITALS (44 sets, daily range): BP systolic 100–213; BP diastolic 59–134; PULSE 42–70; RESP 9–28; TEMP 36.1–37.4; O2SAT 87–95; BMI 25.4
[2023-04-18 05:46] LABS: POC Glucose,Bedside 165 (70-110)
--- NOTE | 2023-04-18 06:00 | XR_ITS ---
PROCEDURE INFORMATION: Exam: XR Chest Exam date and time: 04/18/2023 6:06 AM Age: 57 years old Clinical indication: Device placement; Ett placement (vent status); Additional info: Pneumonia mechanical ventilation TECHNIQUE: Imaging protocol: Radiologic exam of the chest. Views: 1 view. COMPARISON: CR XR CHEST PORTABLE 04/17/2023 1:55 PM FINDINGS: Tubes, catheters and devices: There is endotracheal tube terminating in appropriate position within the trachea approximately 5.7 cm above the nano. There is a feeding tube terminating within the stomach. Lungs: Bibasilar consolidations may represent pneumonia versus atelectasis. Pleural spaces: Large left, small right pleural effusions. Heart/Mediastinum: Mild cardiomegaly. Vasculature: Aortic atherosclerosis. Bones/joints: No acute fracture. IMPRESSION: Large left, small right pleural effusions. Bibasilar consolidations may represent pneumonia versus atelectasis. Mild cardiomegaly.
--- NOTE | 2023-04-18 06:51 | EXP.ACUTE.PN ---
Subjective *Date: 04/18/23 *Time: 12:17 Interval history: Patient awake on rounds, performing spontaneous breathing trial. Blood pressure elevated while he is agitated. Saying that his ET tube is uncomfortable, appears to be saying he feels like he is strangling based on his hand movements and asking questions and nodding yes to exam. Afebrile. Gesturing that he wants to be extubated. Oxygen requirement remained stable overnight. Significant urine output, responding well to diuresis. Tolerating tube feeds overnight. Significant other at bedside concerned that we're not extubating today. Stressed that she would give us till Wednesday. Provider expressed concern that he is showing slow resolution and to extubate too early would be dangerous. She is adamant that she has gone past her initial 4 days that she promised him which would have been and is giving us to Wednesday for him to be extubatable. Also brought up the subject today of dialysis to increase his oxygen and his blood. I informed her that that is not a purpose of dialysis and he has no indication for dialysis or ECMO which could give his blood oxygen. She stated that some doctors practice differently and she has done her research. She states if he is not getting better she might consider transferring him to to improve his oxygenation through dialysis since we cannot do dialysis here. I informed her that that is not a purpose of dialysis and she states she had a family member that gets it occasionally for that purpose because her blood is thick . I can only presume she means pheresis to decrease polycythemia. Informed her that we would agree to disagree on appropriateness of treatment modalities. Medical Exam Vital signs and Labs for Last 24 Hours: Vital Signs Temp Pulse Pulse Resp BP Pulse Ox O2 Del Method 04/18/23 06:10 57 L 04/18/23 06:10 62 04/18/23 06:10 20 91 L 04/18/23 06:10 91 L Mechanical Ventilation 04/18/23 06:00 59 L 20 125/77 91 L Mechanical Ventilation 04/18/23 06:00 91 L 04/18/23 05:00 54 L 20 127/74 91 L Mechanical Ventilation 04/18/23 05:00 Mechanical Ventilation 04/18/23 04:00 54 L 04/18/23 04:00 98 F 52 L 20 122/73 90 L Mechanical Ventilation 04/18/23 04:00 52 L 91 L Mechanical Ventilation 04/18/23 03:00 55 L 20 114/64 89 L Mechanical Ventilation 04/18/23 03:00 Mechanical Ventilation 04/18/23 02:00 59 L 20 105/59 L 89 L Mechanical Ventilation 04/18/23 02:00 04/18/23 00:00 60 04/18/23 01:00 59 L 20 115/68 89 L Mechanical Ventilation 04/18/23 01:00 Mechanical Ventilation 04/18/23 00:11 23 90 L 04/18/23 00:00 97 F L 62 20 118/85 90 L Mechanical Ventilation 04/18/23 00:00 90 L Mechanical Ventilation 04/17/23 23:54 60 04/17/23 23:54 61 04/17/23 23:00 64 20 182/104 H 91 L Mechanical Ventilation 04/17/23 23:00 Mechanical Ventilation 04/17/23 20:00 60 04/17/23 22:00 61 20 154/97 H 90 L Mechanical Ventilation 04/17/23 22:02 21 90 L 04/17/23 21:00 57 L 20 163/97 H 92 L Mechanical Ventilation 04/17/23 21:00 Mechanical Ventilation 04/17/23 20:00 96.9 F L 55 L 20 172/103 H 90 L Mechanical Ventilation 04/17/23 20:00 55 L 91 L Mechanical Ventilation 04/17/23 19:59 26 H 91 L 04/17/23 19:00 59 L 16 150/108 H 91 L Mechanical Ventilation 04/17/23 18:39 Mechanical Ventilation 04/17/23 18:00 54 L 20 116/65 88 L Mechanical Ventilation 04/17/23 18:11 53 L 04/17/23 18:11 53 L 04/17/23 18:11 89 L Mechanical Ventilation 04/17/23 18:11 20 89 L 04/17/23 17:00 Mechanical Ventilation 04/17/23 17:00 60 20 120/69 90 L Mechanical Ventilation 04/17/23 16:00 58 L 04/17/23 16:00 62 20 129/73 90 L Mechanical Ventilation 04/17/23 15:30 62 90 L Mechanical Ventilati
[2023-04-18 07:05] LABS: Basophils % 0.1 % (0.1-2.0); Eosinophils % 0.1 % (0.1-12.0); Hematocrit 55.6 % (42.0-52.0); Lymphocytes # 0.4 K/mm3 (0.7-4.5); Lymphocytes % 3.8 % (10-50); Mean Corpuscular HGB Conc 32.4 g/dL (31.8-35.4); Mean Corpuscular Hemoglobin 31.4 pg (27.0-31.2); Mean Platelet Volume 8.4 fl (7.4-10.4); Monocytes # 1.1 K/mm3 (0.1-1.0); Monocytes % 9.1 % (1.7-9.3); Neutrophils # 10.2 K/mm3 (1.8-7.8); Neutrophils % 86.8 % (37.0-80.0); Platelet Count 203 K/mm3 (142-424); Red Blood Count 5.73 M/mm3 (4.60-6.20); White Blood Count 11.7 K/mm3 (4.8-10.8)
[2023-04-18 07:10] LABS: Chloride 98 mmol/L (98-107); Potassium 3.3 mmoL/L (3.5-5.1); Sodium 136 mmol/L (136-145)
[2023-04-18 07:13] LABS: Alanine Aminotransferase 34 U/L (12-78); Albumin Level 3.2 g/dl (3.5-5.0); Albumin/Globulin Ratio 1.1 (1.1-1.8); Alkaline Phosphatase 71 U/L (38-126); Anion Gap 8.3 mEq/L (5-15); Aspartate Amino Transferase 36 U/L (17-59); Bilirubin,Total 2.4 mg/dl (0.2-1.3); Blood Urea Nitrogen 33 mg/dl (9-20); Carbon Dioxide 33 mmol/L (22.0-30.0); Creatinine Clearance Estimated 142 mL/min (50-200); Estimated Glomerular Filt Rate 117 ml/min (>60); GFR (African American) 141 ML/MIN (>60); Globulin 2.9 g/dL (1.3-3.2); Total Protein,Serum 6.1 g/dl (6.3-8.2)
[2023-04-18 07:14] LABS: Calcium 7.5 mg/dl (8.4-10.2); Glucose 195 mg/dl (74-100)
[2023-04-18 07:51] LABS: MANUAL DIFFERENTIAL MANUAL DIFFERENTIAL (MANUAL DIFF)
--- NOTE | 2023-04-18 08:07 | PC.NURSE ---
8am pt was turned onto right side with legs and arms elevated
[2023-04-18 08:15] LABS: Lymphocytes % 4 % (10-50); Monocytes % 9 % (2-9); Neutrophils % 87 % (42-76); Platelet Estimate Normal; RBC Morphology Normal; Total Cells Counted 100
--- NOTE | 2023-04-18 08:36 | PC.WOUNDNOTE ---
Skin assessment at start of shift.
--- NOTE | 2023-04-18 09:17 | PC.NURSE ---
Addendum entered by Lila Daly RN 04/18/23 09:19: fent stopped at 0920 Original Note: 0915 SBT started. fentanyl at 50mcg. propofol stopped
--- NOTE | 2023-04-18 10:17 | PC.NURSE ---
[address] Shaw recommendations via Dr Grace. restarted at 10mcg for comfort
[2023-04-18 11:30] LABS: ABG Base Excess 9.9 mmol/L (-2.4-2.3); ABG HCO3 32.8 mmhg (22.0-26.0); ABG Oxygen Saturation 92 % (90-100); ABG PCO2 41.3 mmhg (35.0-45.0); ABG PH 7.52 mmol/L (7.35-7.45); ABG PO2 59.5 mmhg (80-100); ABG TCO2 34.1 mmhg (23-27)
[2023-04-18 11:31] LABS: Allen's Test Acceptable; Oxygen 40% %; PEEP 5; Source Right Radial
[2023-04-18 12:13] LABS: POC Glucose,Bedside 96 (70-110)
--- NOTE | 2023-04-18 14:39 | DIET.NUTRFU ---
RD reviewed TF status, TF was put on hold to help with SBT trial. TF was restarted but will be held again tomorrow morning to help with SBT trial. Only received 40ml TF on 04/17. Recived 843ml on 04/16 and currently running. Glucerna at 65ml/hr is current order. Labs reviewed: Na 136, Potassium 3.3L, BUN 33H, glucose elevated and albumin 3.2L. Reciveing hydration via TF and flush of 600ml/day. If continues to hold TF long durations may need IVF replacement fluids. Continues on lasix, insulin, protonix, ABT tx. LBM noted 04/15, continues on BM regimen. Propofol was 605ml providng 665kcal. urine out 1705 04/17, 3425ml 04/16. Will continue to monitor SBT, once extubated 24hours post [employer] will need eval for oral diet.
[2023-04-18 17:24] LABS: POC Glucose,Bedside 134 (70-110)
[2023-04-18 18:22] LABS: Chloride 97 mmol/L (98-107)
[2023-04-18 18:23] LABS: Potassium 3.4 mmoL/L (3.5-5.1); Sodium 137 mmol/L (136-145)
[2023-04-18 18:25] LABS: Blood Urea Nitrogen 32 mg/dl (9-20); Creatinine Clearance Estimated 125 mL/min (50-200); Estimated Glomerular Filt Rate 100 ml/min (>60); GFR (African American) 121 ML/MIN (>60)
[2023-04-18 18:26] LABS: Anion Gap 6.4 mEq/L (5-15); Calcium 7.8 mg/dl (8.4-10.2); Carbon Dioxide 37 mmol/L (22.0-30.0); Glucose 151 mg/dl (74-100)
[2023-04-18 20:39] LABS: POC Glucose,Bedside 178 (70-110)
[2023-04-19] VITALS (48 sets, daily range): BP systolic 78–197; BP diastolic 39–137; PULSE 47–98; RESP 7–30; TEMP 36.3–37; O2SAT 87–97; BMI 25.4
--- NOTE | 2023-04-19 03:14 | PC.NURSE ---
Start of shift: Vent settings- FI02 40% TV 440 PEEP 5 RR 20 8.0 ETT, 24 @ teeth GTT- Propofol @ 45mcg/kg/min Fentanyl @ 50mcg/hr OG in place @ 50cm, Glucerna running at 30 ml/hr. 5ml residual.
--- NOTE | 2023-04-19 03:17 | PC.NURSE ---
Pt 0047 bp 85/56 - Propofol titrated down to 40mcg/kg/min 0100 bp 82/50 - Fentanyl titrated down to 45mcg/hr
--- NOTE | 2023-04-19 05:43 | PC.NURSE ---
Propofol titrated up to 45mcg/kg/min
--- NOTE | 2023-04-19 06:00 | XR_ITS ---
PROCEDURE INFORMATION: Exam: XR Chest Exam date and time: 04/19/2023 6:13 AM Age: 57 years old Clinical indication: Device placement; Ett placement (vent status); Additional info: Pneumonia mechanical ventilation TECHNIQUE: Imaging protocol: Radiologic exam of the chest. Views: 1 view. COMPARISON: CR XR CHEST PORTABLE 04/18/2023 6:06 AM FINDINGS: Tubes, catheters and devices: Endotracheal tube tip is at the level of the clavicular heads, about 6 cm from the nano similar to the prior exam. Enteric tube extends into the left upper quadrant but the tip is not seen. Lungs: Bibasilar airspace disease versus atelectasis, similar to the prior exam. Pleural spaces: Bilateral pleural effusions, left greater than right . Heart/Mediastinum: Stable cardiomegaly. Bones/joints: No acute findings. IMPRESSION: 1. No significant interval change. 2. Bibasilar airspace disease versus atelectasis, similar to the prior exam. 3. Bilateral pleural effusions, left greater right.
[2023-04-19 06:06] LABS: POC Glucose,Bedside 190 (70-110)
[2023-04-19 06:21] LABS: Chloride 100 mmol/L (98-107)
[2023-04-19 06:22] LABS: Potassium 3.9 mmoL/L (3.5-5.1); Sodium 136 mmol/L (136-145)
[2023-04-19 06:24] LABS: Alanine Aminotransferase 33 U/L (12-78); Alkaline Phosphatase 70 U/L (38-126); Anion Gap 8.9 mEq/L (5-15); Aspartate Amino Transferase 42 U/L (17-59); Bilirubin,Total 2.7 mg/dl (0.2-1.3); Blood Urea Nitrogen 37 mg/dl (9-20); Carbon Dioxide 31 mmol/L (22.0-30.0); Creatinine Clearance Estimated 142 mL/min (50-200); Estimated Glomerular Filt Rate 117 ml/min (>60); GFR (African American) 141 ML/MIN (>60)
[2023-04-19 06:25] LABS: Albumin Level 3.3 g/dl (3.5-5.0); Albumin/Globulin Ratio 1.1 (1.1-1.8); Calcium 7.8 mg/dl (8.4-10.2); Globulin 2.9 g/dL (1.3-3.2); Glucose 206 mg/dl (74-100); Total Protein,Serum 6.2 g/dl (6.3-8.2)
[2023-04-19 06:26] LABS: Magnesium 2.1 mg/dl (1.6-2.3)
[2023-04-19 06:43] LABS: Basophils % 0.4 % (0.1-2.0); Eosinophils % 0.2 % (0.1-12.0); Lymphocytes # 0.6 K/mm3 (0.7-4.5); Lymphocytes % 6.3 % (10-50); Mean Corpuscular HGB Conc 32.9 g/dL (31.8-35.4); Mean Corpuscular Hemoglobin 31.8 pg (27.0-31.2); Mean Corpuscular Volume 96.5 fl (80-94); Mean Platelet Volume 8.4 fl (7.4-10.4); Monocytes # 0.8 K/mm3 (0.1-1.0); Monocytes % 8.1 % (1.7-9.3); Neutrophils # 8.7 K/mm3 (1.8-7.8); Neutrophils % 85.1 % (37.0-80.0); Platelet Count 203 K/mm3 (142-424); Red Blood Count 5.86 M/mm3 (4.60-6.20); White Blood Count 10.2 K/mm3 (4.8-10.8)
[2023-04-19 06:53] LABS: Hematocrit 56.6 % (42.0-52.0); Hemoglobin 18.6 g/dL (14.1-18.0); MANUAL DIFFERENTIAL MANUAL DIFFERENTIAL (MANUAL DIFF)
--- NOTE | 2023-04-19 07:44 | PC.NURSE ---
upon start of shift pt's oxygen saturations 84-85% on 40%FIO2, RT Trish suctioned and lavaged pt and got moderate thick secretions back, pt's oxygen saturations went up to 90% on 40%FIO2 after suctioning
[2023-04-19 07:55] LABS: Lymphocytes % 8 % (10-50); Monocytes % 6 % (2-9); Neutrophils % 86 % (42-76); Total Cells Counted 100
[2023-04-19 07:56] LABS: Hypochromasia 1+; Macrocytosis 1+; Platelet Estimate Normal
--- NOTE | 2023-04-19 08:15 | EXP.ACUTE.PN ---
Subjective *Date: 04/19/23 *Time: 13:07 Interval history: Patient awake on rounds, performing spontaneous breathing trial. Blood pressure elevated while he is agitated. He is responding to questions appropriately with head nods. Appears to be saying he wants to be extubated. He remains afebrile. Doing well with breathing trial but still having moderate secretions. Significant other at bedside stressing the desire to extubate today. Tolerated tube feeds overnight. Significant urine output, -2-1/2 L for the past 24 hours. Still no bowel movement. Medical Exam Vital signs and Labs for Last 24 Hours: Vital Signs Temp Pulse Pulse Resp BP Pulse Ox O2 Del Method 04/19/23 08:00 98.2 F 04/19/23 07:53 47 L 20 118/65 90 L Mechanical Ventilation 04/19/23 07:44 90 L Mechanical Ventilation 04/19/23 07:00 Mechanical Ventilation 04/19/23 07:00 48 L 20 124/65 90 L Mechanical Ventilation 04/19/23 06:30 54 L 04/19/23 06:30 54 L 04/19/23 06:30 88 L 04/19/23 06:00 51 L 20 110/67 89 L Mechanical Ventilation 04/19/23 04:00 50 L 04/19/23 05:00 Mechanical Ventilation 04/19/23 05:00 97.3 F L 58 L 20 106/65 L 92 L Mechanical Ventilation 04/19/23 04:00 56 L 91 L Mechanical Ventilation 04/19/23 04:00 51 L 20 107/61 L 90 L Mechanical Ventilation 04/19/23 03:00 Mechanical Ventilation 04/19/23 03:00 52 L 20 111/64 90 L Mechanical Ventilation 04/19/23 00:00 50 L 04/18/23 20:00 60 04/19/23 02:00 55 L 20 91/56 L 90 L Mechanical Ventilation 04/19/23 01:01 82/50 L 04/19/23 01:00 61 20 82/50 L 90 L Mechanical Ventilation 04/19/23 00:47 61 85/56 L 04/19/23 00:44 Mechanical Ventilation 04/19/23 00:00 90 L Mechanical Ventilation 04/19/23 00:00 58 L 90 L Mechanical Ventilation 04/19/23 00:00 97.5 F L 60 20 92/62 L 90 L Mechanical Ventilation 04/18/23 23:46 54 L 04/18/23 23:46 57 L 04/18/23 23:00 60 20 122/82 89 L Mechanical Ventilation 04/18/23 23:00 Mechanical Ventilation 04/18/23 22:37 21 89 L 04/18/23 22:00 63 18 118/80 88 L Mechanical Ventilation 04/18/23 21:00 Mechanical Ventilation 04/18/23 21:00 62 20 136/89 87 L Mechanical Ventilation 04/18/23 19:47 20 90 L 04/18/23 20:00 96.9 F L 62 22 118/74 91 L Mechanical Ventilation 04/18/23 19:59 53 L 90 L Mechanical Ventilation 04/18/23 19:00 59 L 20 148/88 H 88 L Mechanical Ventilation 04/18/23 19:00 Mechanical Ventilation 04/18/23 18:02 88 L 04/18/23 18:00 51 L 20 132/78 88 L Mechanical Ventilation 04/18/23 17:34 55 L 04/18/23 17:34 55 L 04/18/23 17:34 89 L Mechanical Ventilation 04/18/23 17:34 20 89 L 04/18/23 17:25 53 L 20 124/84 89 L Mechanical Ventilation 04/18/23 17:22 Mechanical Ventilation 04/18/23 16:00 57 L 04/18/23 16:00 60 20 141/92 H 91 L Mechanical Ventilation 04/18/23 15:56 99.4 F 04/18/23 15:43 56 L 93 L Mechanical Ventilation 04/18/23 15:30 57 L 20 164/98 H 93 L Mechanical Ventilation 04/18/23 15:00 59 L 20 100/66 L 91 L Mechanical Ventilation 04/18/23 12:00 64 20 143/85 H 90 L Mechanical Ventilation 04/18/23 14:57 Mechanical Ventilation 04/18/23 14:06 93 L 04/18/23 14:00 62 20 153/67 H 92 L Mechanical Ventilation 04/18/23 13:00 Mechanical Ventilation 04/18/23 13:00 67 20 148/75 H 93 L Mechanical Ventilation 04/18/23 12:22 64 90 L Mechanical Ventilation 04/18/23 12:00 61 04/18/23 11:45 70 04/18/23 11:45 68 04/18/23 11:45 94 L Mechanical Ventilation 04/18/23 11:45 28 H 94 L 04/18/23 11:25 97.2 F L 04/18/23 10:30 69 14 179/134 H 92 L Mechanical Ventilation 04/18/23 09:30 60 12 192/104 H 90 L Mechanical Ventilation
--- NOTE | 2023-04-19 08:16 | PC.NURSE ---
propofol decreased to 10mcg/kg/min and fentanyl stopped for sbt
--- NOTE | 2023-04-19 09:00 | PC.NURSE ---
stopped TF for SBT per MD Shaw
--- NOTE | 2023-04-19 09:06 | DIET.NUTRFU ---
Addendum entered by Kaia King RD, LD 04/19/23 10:54: During rounds reviewed LBM, miralax was given yesterday to try to assist with bowel movement, will review after SBT completed. Family is really hoping able to extabate today. Original Note: Spoke to nursing TF had been running at goal rate this AM. Had tube changed to OT, patient felt like the ET was strangling him. He failed SBT over weekend. Today the sedation was turned down and TF on hold for SBT. told provider she wants him extubated, it has already been over his 4 days intubation. Ethics consulted 04/17 to help with family discussions vs. medical advice. Patient continues on lasix tx with good urin output of 3335ml on 04/18. Propofol was increased over weekend received 605ml on 04/1863=713.5kcal. Residuals were noted at 80 on 04/19, no other sides on non-tolerance noted. LBM noted 04/15. Patient is not consistency meeting nutritional needs, at risk for malnutrition. Labs reviewed:Na 136, K 3.9, BUN 37, Cr 0.70 and BS 190. Will continue to follow
--- NOTE | 2023-04-19 10:09 | EXP.CARD.PN ---
Subjective Subjective Date: 04/19/23 Time: 10:09 Principal diagnosis: acute respiratory failure Interval history: 57 yo WM awake in NAD. Undergoing weaning trial for consideration of extubation. No complaints of chest pain BP labile due to anxiety I/O net negative 5.5 liters Exam Data for Last 24 hours Vital signs and Labs for Last 24 Hours: Temp Pulse Resp BP Pulse Ox O2 Del Method O2 Flow Rate 98.2 F 83 22 163/108 H 90 L Room Air 50 04/19/23 08:00 04/19/23 09:45 04/19/23 09:45 04/19/23 09:45 04/19/23 09:46 04/19/23 09:30 04/17/23 10:00 FiO2 40 04/19/23 09:46 Laboratory Results - last 24 hr 04/12/23 15:20: BAL Total Cell Count See comment 04/18/23 11:15: Specimen Source Right radial, O2 % 40%, ABG pH 7.52 H, ABG pCO2 41.3, ABG pO2 59.5 L, ABG HCO3 32.8 H, ABG Total CO2 34.1 H, ABG O2 Saturation 92, ABG Base Excess 9.9 H, Ben Test Acceptable, PEEP 5 04/18/23 11:40: POC Glucose 96 04/18/23 17:08: POC Glucose 134 H 04/18/23 18:00: Sodium 137, Potassium 3.4 L, Chloride 97 L, Carbon Dioxide 37 H, Anion Gap 6.4, BUN 32 H, Creatinine 0.80, Estimated Creat Clear 125, Estimated GFR 100, Est GFR ( Amer) 121, Glucose 151 H D, Calcium 7.8 L 04/18/23 20:32: POC Glucose 178 H 04/19/23 05:51: Sodium 136, Potassium 3.9, Chloride 100, Carbon Dioxide 31 H, Anion Gap 8.9, BUN 37 H, Creatinine 0.70, Estimated Creat Clear 142, Estimated GFR 117, Est GFR ( Amer) 141, Glucose 206 H D, Calcium 7.8 L, Total Bilirubin 2.7 H, AST 42, ALT 33, Alkaline Phosphatase 70, Total Protein 6.2 L, Albumin 3.3 L, Globulin 2.9, Albumin/Globulin Ratio 1.1 04/19/23 05:58: POC Glucose 190 H 04/19/23 06:00: WBC 10.2, RBC 5.86, Hgb 18.6 H, Hct 56.6 H, MCV 96.5 H, MCH 31.8 H, MCHC 32.9, RDW 15.0, Plt Count 203, MPV 8.4, Neut % (Auto) 85.1 H, Lymph % (Auto) 6.3 L, [place] % (Auto) 8.1, Eos % (Auto) 0.2, Baso % (Auto) 0.4, Neut # (Auto) 8.7 H, Lymph # (Auto) 0.6 L, [place] # (Auto) 0.8, Eos # (Auto) 0.0, Baso # (Auto) 0.0, Total Counted 100, Neutrophils % (Manual) 86 H, Lymphocytes % (Manual) 8 L, Monocytes % (Manual) 6, Platelet Estimate Normal, Hypochromasia 1+, Macrocytosis 1+, Magnesium 2.1 I & O for Last 24 hours: Intake & Output 04/16/23 04/17/23 04/18/23 04/19/23 11:59 11:59 11:59 11:59 Intake Total 5470.383 / 5470.383 1930.600 / 3330.583 9943.483 / 2278.483 2907.569 / 2907.569 Output Total 5420 / 5420 5480 / 5480 2955 / 2955 4980 / 4980 Balance 50.383 / 50.383 -3549.400 / -3549.400 -676.517 / -676.517 -2072.431 / -2072.431 Weight 100 lb 188 lb 5 oz 188 lb 6 oz 188 lb 5 oz Microbiology Reports for the Last 24 Hours: Microbiology 04/12/23 12:15 Blood Blood Culture - Final 04/12/23 12:15 Blood Blood Culture - Final *Routine Respiratory Exam Respiratory: Present rhonchi and crackles *Routine Cardiovascular Exam Cardiovascular: Present RRR Progress Note: A&P Assessment and plan (1) Acute respiratory failure with hypoxia and hypercarbia: Status: Acute (2) On mechanically assisted ventilation: Status: Acute (3) Non-ST elevation CT (NSTEMI): Status: Acute (4) SAUD (acute kidney injury): Status: Acute (5) Diabetes mellitus: Status: Acute (6) Polycythemia vera: Problem details: Awaiting evaluation by hematology oncology at [facility]. Status: Chronic (7) Obstructive sleep apnea syndrome: Status: Chronic (8) CAD (coronary atherosclerotic disease): Problem details: Recent stent procedure Status: Chronic (9) GERD (gastroesophageal reflux disease): Status: Acute Assessment and Plan Assessment and Plan for All Diagnoses:: Acute on chronic respiratory failure -Increased oxygen demand during admission -Severe sleep anea AHI 56 -Right lower lobe collapse -On presentation patient was noted to to have hypercarbic respiratory failure without hypoxia, started on bipap and improved. Then refused bipap and declined to hypoxic respirat
[2023-04-19 10:31] LABS: ABG Base Excess 5.9 mmol/L (-2.4-2.3); ABG Oxygen Saturation 83 % (90-100); ABG PCO2 37.4 mmhg (35.0-45.0); ABG PH 7.51 mmol/L (7.35-7.45); ABG TCO2 30.1 mmhg (23-27)
[2023-04-19 10:33] LABS: ABG PO2 44.8 mmhg (80-100); Allen's Test Acceptable; Oxygen 40% %; PEEP 8; Source Left Radial
[2023-04-19 11:08] LABS: Troponin I 0.08 ng/ml (0.00-0.034)
[2023-04-19 11:11] LABS: POC Glucose,Bedside 132 (70-110)
--- NOTE | 2023-04-19 11:25 | EXP.PULM.PN ---
Subjective *Date: 04/19/23 *Time: 11:25 Interval history: No acute respiratory events overnight Pulmonology Exam Inpatient Vital signs and Labs for Last 24 Hours: Temp Pulse Resp BP Pulse Ox O2 Del Method O2 Flow Rate 98.2 F 83 22 163/108 H 90 L Room Air 50 04/19/23 08:00 04/19/23 09:45 04/19/23 09:45 04/19/23 09:45 04/19/23 09:46 04/19/23 09:30 04/17/23 10:00 FiO2 40 04/19/23 09:46 Laboratory Results - last 24 hr 04/12/23 15:20: BAL Total Cell Count See comment 04/18/23 11:15: Specimen Source Right radial, O2 % 40%, ABG pH 7.52 H, ABG pCO2 41.3, ABG pO2 59.5 L, ABG HCO3 32.8 H, ABG Total CO2 34.1 H, ABG O2 Saturation 92, ABG Base Excess 9.9 H, Ben Test Acceptable, PEEP 5 04/18/23 11:40: POC Glucose 96 04/18/23 17:08: POC Glucose 134 H 04/18/23 18:00: Sodium 137, Potassium 3.4 L, Chloride 97 L, Carbon Dioxide 37 H, Anion Gap 6.4, BUN 32 H, Creatinine 0.80, Estimated Creat Clear 125, Estimated GFR 100, Est GFR ( Amer) 121, Glucose 151 H D, Calcium 7.8 L 04/18/23 20:32: POC Glucose 178 H 04/19/23 05:51: Sodium 136, Potassium 3.9, Chloride 100, Carbon Dioxide 31 H, Anion Gap 8.9, BUN 37 H, Creatinine 0.70, Estimated Creat Clear 142, Estimated GFR 117, Est GFR ( Amer) 141, Glucose 206 H D, Calcium 7.8 L, Total Bilirubin 2.7 H, AST 42, ALT 33, Alkaline Phosphatase 70, Troponin I 0.08 H, Total Protein 6.2 L, Albumin 3.3 L, Globulin 2.9, Albumin/Globulin Ratio 1.1 04/19/23 05:58: POC Glucose 190 H 04/19/23 06:00: WBC 10.2, RBC 5.86, Hgb 18.6 H, Hct 56.6 H, MCV 96.5 H, MCH 31.8 H, MCHC 32.9, RDW 15.0, Plt Count 203, MPV 8.4, Neut % (Auto) 85.1 H, Lymph % (Auto) 6.3 L, [place] % (Auto) 8.1, Eos % (Auto) 0.2, Baso % (Auto) 0.4, Neut # (Auto) 8.7 H, Lymph # (Auto) 0.6 L, [place] # (Auto) 0.8, Eos # (Auto) 0.0, Baso # (Auto) 0.0, Total Counted 100, Neutrophils % (Manual) 86 H, Lymphocytes % (Manual) 8 L, Monocytes % (Manual) 6, Platelet Estimate Normal, Hypochromasia 1+, Macrocytosis 1+, Magnesium 2.1 04/19/23 10:17: Specimen Source Left radial, O2 % 40%, ABG pH 7.51 H, ABG pCO2 37.4, ABG pO2 44.8 L, ABG HCO3 29.0 H, ABG Total CO2 30.1 H, ABG O2 Saturation 83 L*, ABG Base Excess 5.9 H, Ben Test Acceptable, PEEP 8 04/19/23 10:46: POC Glucose 132 H I & O for Labs for Last 24 Hours: Intake & Output 04/16/23 04/17/23 04/18/23 04/19/23 23:59 23:59 23:59 23:59 Intake Total 3591.133 / 3825.133 1851.333 / 2149.333 2932.317 / 3472.317 1392.652 / 1392.652 Output Total 6275 / 6375 2560 / 2590 5585 / 5685 1245 / 1245 Balance -2683.867 / -2549.867 -708.667 / -440.667 -2652.683 / -2212.683 147.652 / 147.652 Weight 100 lb 188 lb 5 oz 188 lb 6 oz 188 lb 5 oz Microbiology Reports for the Last 24 Hours: Microbiology 04/12/23 12:15 Blood Blood Culture - Final 04/12/23 12:15 Blood Blood Culture - Final Constitutional: Present moderate distress Comment:: Intubated and Sedated Head: Present normocephalic and atraumatic Neck: Present normal inspection and trachea midline Respiratory: Present patient mechanically ventilated, respiratory distress and rhonchi; Absent wheezes Cardiac: Present S1/S2 and Tachycardia GI: Present soft; Absent distention or tenderness Skin: Present intact; Absent cyanosis Neuro: Absent alert, awake or oriented x 3 Comment:: Intubated and sedated Extremities: Present normal inspection; Absent clubbing or cyanosis Psychiatric: Present unable to assess Assessment and Plan *Assessment and plan (1) Acute respiratory failure with hypoxia and hypercarbia: Status: Acute Category: Medical Code(s): J96.01 - Acute respiratory failure with hypoxia; J96.02 - Acute respiratory failure with hypercapnia (2) Pneumonia: Status: Acute Qualifiers: Pneumonia type: due to unspecified organism Laterality: right Lung location: lower lobe of lung Qualified Code(s): J18.9 - Pneumonia, unspecified organism Category: Medical Code(s): J18.9 - Pneumonia, unspecified
--- NOTE | 2023-04-19 11:34 | PC.NURSE ---
restarted propofol at 10mcg/kg/min and fentanyl at 25mcg/hr
--- NOTE | 2023-04-19 12:00 | PC.NURSE ---
pt restless and vent alarms ringing frequently, pt has copious secretions suctioning frequently, increased propofol to 20mcg/kg/min
--- NOTE | 2023-04-19 13:00 | PC.NURSE ---
turning sedation back on for bronch at bedside, RT Trish flipping pt from SBT back to assist control and putting pt on rate; propofol increased to 50mcg/kg/min and fentanyl to 75mcg/hr, preparing for bronch
--- NOTE | 2023-04-19 13:48 | PC.NURSE ---
bronch started at 1323 and completed at 1340, 6mg ativan given total per verbal orders from MD Shaw perfoming bronch at bedside, copious secretions removed during bronch; after complete decreased fentanyl drip to 50mcg/hr and propofol to 40mcg/kg/min
--- NOTE | 2023-04-19 13:55 | PC.NURSE ---
pt hypotensive after procedure and 6mg ativan given, decreased fentanyl drip to 25 mcg/hr and propofol to 10mcg/kg/min
--- NOTE | 2023-04-19 14:00 | PC.NURSE ---
stopped sedation at this time, notified MD Grace that pt hypotensive, MD to come to bedside and assess
--- NOTE | 2023-04-19 14:30 | EXP.BRONCH.N ---
Procedure: Date: 04/19/23 Patient Date of :: 1965 Procedure Performed:: Bronchoscopy airway examination bronchoalveolar lavage Indications:: Respiratory failure. Mechanical ventilation Performing Provider:: Benja Shaw MD Referring Provider:: Dr. Grace Sedation:: Patient receiving propofol and fentanyl for sedation. She received 6 mg of IV Ativan to facilitate the bronchoscopy procedure Procedure:: Bronchoscopy airway examination and bronchoalveolar lavage : A clean DIAGNOSTIC bronchoscopy was advanced through the ET tube and airways were examined up to subsegmental bronchi. Airways appeared grossly normal, no mucous plugging active bleeding/old blood clots noted. Copious amount of moderately thick mucoid secretions noted in bilateral lower lung bronchi and were completely suctioned. Bronchoalveolar lavage was performed in the RIGHT MIDDLE LOBE with instillation of 40 cc normal saline with return of 15 cc of clear fluid back. BAL fluid was sent for bacterial and fungal stain and cultures. Patient tolerated the procedure with no immediate acute complications. We will follow the patient in pulmonary clinic in 7 to 10 days. Findings:: Please see the procedure note Recommendations:: Please see the procedure note and progress note from today Complications:: No acute immediate complication Estimated blood obtained (mL): 0
[2023-04-19 17:13] LABS: POC Glucose,Bedside 144 (70-110)
[2023-04-19 18:33] LABS: Hemoglobin 17.9 g/dL (14.1-18.0)
[2023-04-19 18:34] LABS: Chloride 101 mmol/L (98-107); Sodium 138 mmol/L (136-145)
[2023-04-19 18:35] LABS: Potassium 3.9 mmoL/L (3.5-5.1)
[2023-04-19 18:37] LABS: Blood Urea Nitrogen 42 mg/dl (9-20); Creatinine Clearance Estimated 125 mL/min (50-200); Estimated Glomerular Filt Rate 100 ml/min (>60); GFR (African American) 121 ML/MIN (>60)
[2023-04-19 18:38] LABS: Anion Gap 7.9 mEq/L (5-15); Calcium 7.9 mg/dl (8.4-10.2); Carbon Dioxide 33 mmol/L (22.0-30.0); Glucose 163 mg/dl (74-100)
[2023-04-19 19:48] LABS: POC Glucose,Bedside 138 (70-110)
[2023-04-20] VITALS (32 sets, daily range): BP systolic 85–195; BP diastolic 50–111; PULSE 61–78; RESP 14–26; TEMP 36.3–37.2; O2SAT 88–97; BMI 27.1
--- NOTE | 2023-04-20 00:15 | PC.NURSE ---
Notified [facility] Riley regarding pt's borderline hypotensive BP's, MAPs 60-65. Notified 2100 carvedilol 12.5 mg dose held and Lasix 40 mg IVP administered with some hypotensive episodes with MAPs at least 60 since administration. Per GUEST SERVICES REPRESENTATIVE, MAPs okay for now as we are avoiding extra fluid to increase likelihood of extubation. Pt intermittently arousable on fentanyl 20 mcg/hr (2 mL/hr) and propofol 20 mcg/kg/min (10 mL/hr) with HR in 60's.
--- NOTE | 2023-04-20 04:16 | PC.WOUNDNOTE ---
Morning bath completed. Excoriation unchanged from previous assessment: Skin intact, pink, blanchable upon palpation, no pain. Cleaned with soap and water, barrier cream applied.
--- NOTE | 2023-04-20 04:50 | PC.NURSE ---
Pt SpO2 87-88% on 50% FiO2. Pt resting comfortably, sitting upright, prop @ 20 mcg/kg/min and fentanyl 20 mcg/hr. During bed bath, pt had multiple secretions from around ETT and OGT that required Yan[place]ur suctioning. RT at bedside and saw RN suction ETT with little results. Notified RT regarding SpO2 change, RT stated they would come to assess pt.
--- NOTE | 2023-04-20 06:00 | XR_ITS ---
PROCEDURE INFORMATION: Exam: XR Chest Exam date and time: 04/20/2023 5:42 AM Age: 57 years old Clinical indication: Device placement; Ett placement (vent status); Additional info: Pneumonia mechanical ventilation TECHNIQUE: Imaging protocol: Radiologic exam of the chest. Views: 1 view. COMPARISON: CR XR CHEST PORTABLE 04/19/2023 6:13 AM FINDINGS: Tubes, catheters and devices: The patient is intubated. The endotracheal tube tip is seen 8.6 cm above the nano. There is an enteric tube projecting into the left quadrant. Lungs: Bilateral effusions with atelectasis are without significant change. Pleural spaces: There is no pneumothorax. Heart/Mediastinum: Unremarkable. No cardiomegaly. Bones/joints: Unremarkable. IMPRESSION: Bilateral effusions with atelectasis without significant change.
--- NOTE | 2023-04-20 06:27 | PC.NURSE ---
Shift Summary Note: Pt experiencing increased amounts of oral secretions throughout shift, causing pt to cough frequently. Secretions are jordan, thick, and able to be suctioned via Yan[place]ur in back of throat and around mouth. Minimal secretions from ETT from RN and RT. Pt able to communicate when he needs to be suctioned, but often requests he needs suctioning around his mouth. Asked RT to move ETT from midline to R side, which pt nodded when asked if it felt more comfortable. Also attempted to reposition pt and continue to raise HOB. Pt lung sounds diminished upon assessment. SpO2 89-90% on 70% FiO2. FiO2 decreased to 50% then had to be increased to 70% d/t hypoxia. RT notified of SpO2 87-88%. Pt found to be in mittens upon assessment. When RN at bedside and watching pt, pt given break to remove mittens to clean hands. Pt RASS 0 to -1, able to follow commands, and sometimes communicate with Y/N questions; propofol 20 mcg/kg/min and fentanyl 20 mcg/hr (2 mL/hr) throughout shift. Muhammad, OG, and ETT remained in place. Bed bath and posterior skin assessment performed at 0300; pt tolerated bath and Q2 hr turns well. R hand 20 g placed. Family at bedside and assisted with oral suctioning of pt.
[2023-04-20 06:29] LABS: Chloride 103 mmol/L (98-107)
[2023-04-20 06:30] LABS: Potassium 4.2 mmoL/L (3.5-5.1); Sodium 138 mmol/L (136-145)
[2023-04-20 06:30] LABS: POC Glucose,Bedside 223 (70-110)
[2023-04-20 06:32] LABS: Alanine Aminotransferase 35 U/L (12-78); Aspartate Amino Transferase 36 U/L (17-59); Blood Urea Nitrogen 47 mg/dl (9-20); Creatinine Clearance Estimated 118 mL/min (50-200); Estimated Glomerular Filt Rate 87 ml/min (>60); GFR (African American) 106 ML/MIN (>60)
[2023-04-20 06:33] LABS: Alkaline Phosphatase 70 U/L (38-126); Anion Gap 7.2 mEq/L (5-15); Calcium 7.9 mg/dl (8.4-10.2); Carbon Dioxide 32 mmol/L (22.0-30.0); Glucose 231 mg/dl (74-100); Magnesium 2.3 mg/dl (1.6-2.3); Total Protein,Serum 6.4 g/dl (6.3-8.2)
[2023-04-20 06:58] LABS: Basophils % 0.2 % (0.1-2.0); Eosinophils % 0.1 % (0.1-12.0); Hematocrit 56.6 % (42.0-52.0); Lymphocytes # 0.9 K/mm3 (0.7-4.5); Lymphocytes % 5.6 % (10-50); Mean Corpuscular HGB Conc 32.1 g/dL (31.8-35.4); Mean Corpuscular Hemoglobin 31.5 pg (27.0-31.2); Mean Corpuscular Volume 98.1 fl (80-94); Mean Platelet Volume 8.5 fl (7.4-10.4); Monocytes # 0.9 K/mm3 (0.1-1.0); Monocytes % 5.5 % (1.7-9.3); Neutrophils # 14.1 K/mm3 (1.8-7.8); Neutrophils % 88.7 % (37.0-80.0); Platelet Count 239 K/mm3 (142-424); Red Blood Count 5.77 M/mm3 (4.60-6.20); White Blood Count 15.9 K/mm3 (4.8-10.8)
[2023-04-20 07:00] LABS: MANUAL DIFFERENTIAL MANUAL DIFFERENTIAL (MANUAL DIFF)
[2023-04-20 07:01] LABS: Hemoglobin 18.2 g/dL (14.1-18.0)
[2023-04-20 07:13] LABS: Lymphocytes % 8 % (10-50); Monocytes % 4 % (2-9); Neutrophils % 88 % (42-76); Total Cells Counted 100
[2023-04-20 07:14] LABS: Hypochromasia 1+; Macrocytosis 1+; Platelet Estimate Normal
[2023-04-20 09:46] LABS: POC Glucose,Bedside 198 (70-110)
[2023-04-20 10:34] LABS: Albumin Level 3.5 g/dl (3.5-5.0); Albumin/Globulin Ratio 1.2 (1.1-1.8); Globulin 2.9 g/dL (1.3-3.2)
--- NOTE | 2023-04-20 10:46 | DIET.NUTRFU ---
CHart review, possible extubate today. Continues on TF, glucerna at goal rate of 65, tolerating well. Thick secretions noted, patient able to request suction. Redness to bottom, intact and protective cream in place. Labs reviewed: Na 138, BUN 47H and Cr 0.90, blood sugar >[address]. Received propofol 04/19: 236qu=315.4kcal. Wt is up today at 90kg was 85kg yesterday. Lasix tx continues. No BM noted since 04/15, provider aware. Continues on senekot and fleet enema was given 04/17. Will continue to follow possible extubation, REPAIRER KILN CAR to eval 24hours post extubation for safe oral diet.
[2023-04-20 11:48] LABS: POC Glucose,Bedside 166 (70-110)
--- NOTE | 2023-04-20 12:26 | PC.NURSE ---
RESP CARE NOTE: Pt extubated to a 6 lpm nasal cannula per Dr Shaw order. Will continue to monitor patient.
--- NOTE | 2023-04-20 15:06 | PC.NURSE ---
BP elevated. notified. New orders received and carried out. Pt is tolerating extubation @1215. Currently on 4L O2 NC. Sats low to mid 90s. NSR on telemetry. He is A&Ox3. No complaints stated. Oral care provided. Pt turned/repositioned. Call light within reach. Safety measures in place.
[2023-04-20 16:43] LABS: POC Glucose,Bedside 117 (70-110)
[2023-04-20 20:18] LABS: POC Glucose,Bedside 90 (70-110)
--- NOTE | 2023-04-20 23:14 | EXP.PN ---
Subjective *Date: 04/21/23 *Time: 08:09 Interval history: intubated and sedated, but appears awake and alert Exam Data for Last 24 hours Vital signs and Labs for Last 24 Hours: Temp Pulse Resp BP Pulse Ox O2 Del Method O2 Flow Rate 97.3 F L 66 20 161/83 H 95 Nasal Cannula 4 04/20/23 18:31 04/20/23 22:00 04/20/23 22:00 04/20/23 22:00 04/20/23 22:00 04/20/23 23:00 04/20/23 23:00 FiO2 70 04/20/23 10:00 Laboratory Results - last 24 hr 04/20/23 05:55: WBC 15.9 H D, RBC 5.77, Hgb 18.2 H, Hct 56.6 H, MCV 98.1 H, MCH 31.5 H, MCHC 32.1, RDW 15.0, Plt Count 239, MPV 8.5, Neut % (Auto) 88.7 H, Lymph % (Auto) 5.6 L, [place] % (Auto) 5.5, Eos % (Auto) 0.1, Baso % (Auto) 0.2, Neut # (Auto) 14.1 H, Lymph # (Auto) 0.9, [place] # (Auto) 0.9, Eos # (Auto) 0.0, Baso # (Auto) 0.0, Total Counted 100, Neutrophils % (Manual) 88 H, Lymphocytes % (Manual) 8 L, Monocytes % (Manual) 4, Platelet Estimate Normal, RBC Morphology Not Reportable, Hypochromasia 1+, Macrocytosis 1+, Sodium 138, Potassium 4.2, Chloride 103, Carbon Dioxide 32 H, Anion Gap 7.2, BUN 47 H, Creatinine 0.90, Estimated Creat Clear 118, Estimated GFR 87, Est GFR ( Amer) 106, Glucose 231 H D, Calcium 7.9 L, Magnesium 2.3, Total Bilirubin 3.0 H, AST 36, ALT 35, Alkaline Phosphatase 70, Total Protein 6.4, Albumin 3.5, Globulin 2.9, Albumin/Globulin Ratio 1.2 04/20/23 06:12: POC Glucose 223 H 04/20/23 09:35: POC Glucose 198 H 04/20/23 11:41: POC Glucose 166 H 04/20/23 16:35: POC Glucose 117 H 04/20/23 20:10: POC Glucose 90 I & O for Last 24 hours: Intake & Output 04/17/23 04/18/23 04/19/23 04/20/23 23:59 23:59 23:59 23:59 Intake Total 1851.333 / 2149.333 2932.317 / 3472.317 1896.652 / 2152.652 1081.89 / 1081.89 Output Total 2560 / 2590 5585 / 5685 3345 / 3595 2540 / 2540 Balance -708.667 / -440.667 -2652.683 / -2212.683 -1448.348 / -1442.348 -1458.11 / -1458.11 Weight 85.417 kg 85.445 kg 85.417 kg 90.8 kg Microbiology Reports for the Last 24 Hours: Microbiology 04/17/23 09:30 Sputum - Endotracheal Tube Aspirate Gram Stain - Final 04/12/23 13:20 Sputum - Endotracheal Tube Aspirate Gram Stain - Final 04/12/23 13:20 Sputum - Endotracheal Tube Aspirate Sputum Culture - Final Narrative: patient seen at 9.30AM Constitutional Constitutional: no acute distress *Routine HEENT Exam Head: Present normocephalic Eye: Present EOMI and PERRL ENT: Present mucous membranes moist *Routine Neck Exam Neck: Present supple; Absent lymphadenopathy *Routine Respiratory Exam Comments: mechanical breathing sounds b/l *Routine Cardiovascular Exam Cardiovascular: Present RRR *Routine Abdominal Exam Abdominal: Present soft and normoactive bowel sounds; Absent tenderness *Routine Extremities Exam Extremities: Absent cyanosis, clubbing or edema *Routine Skin Exam Skin: Present warm; Absent rash *Routine Neurological Exam Neurological: Present alert and oriented X3 Assessment and Plan *Assessment and plan (1) Pneumonia: Status: Acute Qualifiers: Pneumonia type: due to unspecified organism Laterality: right Lung location: lower lobe of lung Qualified Code(s): J18.9 - Pneumonia, unspecified organism Category: Medical Code(s): J18.9 - Pneumonia, unspecified organism (2) Acute respiratory failure with hypoxia and hypercarbia: Status: Acute Category: Medical Code(s): J96.01 - Acute respiratory failure with hypoxia; J96.02 - Acute respiratory failure with hypercapnia (3) SAUD (acute kidney injury): Status: Acute Category: Medical Code(s): N17.9 - Acute kidney failure, unspecified (4) Non-ST elevation [place] (NSTEMI): Status: Acute Category: Medical Code(s): I21.4 - Non-ST elevation (NSTEMI) myocardial infarction (5) Diabetes mellitus: Status: Acute Qualifiers: Diabetes mellitus type: type 2 Diabetes mellitus terminal computer operator insulin use: without terminal computer operator
[2023-04-21] VITALS (20 sets, daily range): BP systolic 111–171; BP diastolic 61–125; PULSE 59–85; RESP 12–20; TEMP 36.3–36.9; O2SAT 90–97; BMI 23.8
[2023-04-21 05:19] LABS: POC Glucose,Bedside 83 (70-110)
--- NOTE | 2023-04-21 06:00 | XR_ITS ---
PROCEDURE INFORMATION: Exam: XR Chest Exam date and time: 04/21/2023 5:42 AM Age: 57 years old Clinical indication: Device placement; Ett placement (vent status); Patient HX: PT extubated; Additional info: Pneumonia mechanical ventilation TECHNIQUE: Imaging protocol: Radiologic exam of the chest. Views: 1 view. COMPARISON: CR XR CHEST PORTABLE 04/20/2023 5:42 AM FINDINGS: Lungs: Unremarkable. No consolidation. Pleural spaces: Unremarkable. No pleural effusion. No pneumothorax. Heart/Mediastinum: Unremarkable. No cardiomegaly. Bones/joints: Unremarkable. IMPRESSION: No acute findings.
[2023-04-21 06:15] LABS: Alanine Aminotransferase 34 U/L (12-78); Albumin Level 3.3 g/dl (3.5-5.0); Albumin/Globulin Ratio 1.1 (1.1-1.8); Alkaline Phosphatase 69 U/L (38-126); Anion Gap 7.8 mEq/L (5-15); Aspartate Amino Transferase 35 U/L (17-59); Bilirubin,Total 3.8 mg/dl (0.2-1.3); Blood Urea Nitrogen 37 mg/dl (9-20); Calcium 8.3 mg/dl (8.4-10.2); Carbon Dioxide 30 mmol/L (22.0-30.0); Chloride 101 mmol/L (98-107); Creatinine Clearance Estimated 132 mL/min (50-200); Estimated Glomerular Filt Rate 100 ml/min (>60); GFR (African American) 121 ML/MIN (>60); Glucose 91 mg/dl (74-100); Potassium 3.8 mmoL/L (3.5-5.1); Sodium 135 mmol/L (136-145); Total Protein,Serum 6.3 g/dl (6.3-8.2)
--- NOTE | 2023-04-21 10:02 | EXP.PULM.PN ---
Subjective *Date: 04/21/23 *Time: 10:02 Interval history: No acute respiratory events overnight. Successfully extubated to NC. Weaned to 3 L. Denies any new respiratory complaints Pulmonology Exam Inpatient Vital signs and Labs for Last 24 Hours: Temp Pulse Resp BP Pulse Ox O2 Del Method O2 Flow Rate 98.1 F 70 14 152/88 H 94 L Nasal Cannula 3 04/21/23 07:47 04/21/23 08:00 04/21/23 06:00 04/21/23 06:00 04/21/23 09:26 04/21/23 09:26 04/21/23 09:26 FiO2 70 04/20/23 10:00 Laboratory Results - last 24 hr 04/20/23 05:55: Albumin 3.5, Globulin 2.9, Albumin/Globulin Ratio 1.2 04/20/23 11:41: POC Glucose 166 H 04/20/23 16:35: POC Glucose 117 H 04/20/23 20:10: POC Glucose 90 04/21/23 05:11: POC Glucose 83 04/21/23 05:39: Sodium 135 L, Potassium 3.8, Chloride 101, Carbon Dioxide 30, Anion Gap 7.8, BUN 37 H, Creatinine 0.80, Estimated Creat Clear 132, Estimated GFR 100, Est GFR ( Amer) 121, Glucose 91 D, Calcium 8.3 L, Total Bilirubin 3.8 H, AST 35, ALT 34, Alkaline Phosphatase 69, Total Protein 6.3, Albumin 3.3 L, Globulin 3.0, Albumin/Globulin Ratio 1.1 I & O for Labs for Last 24 Hours: Intake & Output 04/18/23 04/19/23 04/20/23 04/21/23 23:59 23:59 23:59 23:59 Intake Total 2932.317 / 3472.317 1896.652 / 2152.652 1081.89 / 1081.89 800 / 800 Output Total 5585 / 5685 3345 / 3595 2540 / 2540 800 / 800 Balance -2652.683 / -2212.683 -1448.348 / -1442.348 -1458.11 / -1458.11 0 / 0 Weight 188 lb 6 oz 188 lb 5 oz 200 lb 2.876 oz 175 lb 9 oz Microbiology Reports for the Last 24 Hours: Microbiology 04/17/23 09:30 Sputum - Endotracheal Tube Aspirate Gram Stain - Final 04/12/23 13:20 Sputum - Endotracheal Tube Aspirate Gram Stain - Final 04/12/23 13:20 Sputum - Endotracheal Tube Aspirate Sputum Culture - Final Constitutional: Present moderate distress Comment:: Intubated and Sedated Head: Present normocephalic and atraumatic Comment:: uvular edema noted. No stridor Neck: Present normal inspection and trachea midline Respiratory: Absent respiratory distress, rhonchi or wheezes Cardiac: Present S1/S2 and Tachycardia GI: Present soft; Absent distention or tenderness Skin: Present intact; Absent cyanosis Neuro: Present alert, awake and oriented x 3 Comment:: Intubated and sedated Extremities: Present normal inspection; Absent clubbing or cyanosis Psychiatric: Present unable to assess Assessment and Plan *Assessment and plan (1) Acute respiratory failure with hypoxia and hypercarbia: Status: Acute Category: Medical Code(s): J96.01 - Acute respiratory failure with hypoxia; J96.02 - Acute respiratory failure with hypercapnia (2) Pneumonia: Status: Acute Qualifiers: Pneumonia type: due to unspecified organism Laterality: right Lung location: lower lobe of lung Qualified Code(s): J18.9 - Pneumonia, unspecified organism Category: Medical Code(s): J18.9 - Pneumonia, unspecified organism (3) On mechanically assisted ventilation: Status: Acute Category: Medical Code(s): Z99.11 - Dependence on respirator [ventilator] status Plan Mr. Kwan is a 57-year-old male history of tobacco abuse, severe sleep apnea AHI- 57, presented to the hospital over the weekend complaining of vomiting and dizziness he had admission hospital denies any chest pain or shortness of breath. Patient was admitted and was being managed for acute kidney injury and elevated troponins. CTA upon admission, no evidence of pulmonary embolism. No dense consolidations or airspace disease noted. Mild lower lobe groundglass opacities and subpleural atelectasis noted. CT abdomen from 04/10/2023 a day after CTA showed complete right lower lobe collapse / consolidation Chest x-ray was decreasing lung volumes on the right lower lung field Afebrile. Hemodynamically stable. Worsening leukocytosis. Patient was also managed for demand ischemia NSTEMI heparin drip on adm
--- NOTE | 2023-04-21 11:08 | HMH.PTEV ---
Physical Therapy Evaluation Rehab PT IP Evaluation Start: 04/21/23 10:01 Freq: ONCE Status: Active Protocol: Document 04/21/23 11:03 JAYMaricruzJUSTYNA (Rec: 04/21/23 11:07 PHORNE [id number]) Subjective/History History History 57 yowm adm to [facility] with SAUD and NSTEMI. Complications during admission required oral intubatiion for ~ 1 wk and pt was extubated 04/20. He has PMH of CAD, HTN, HLD< [place], [place]RA[place], HF. He reports he lives with [place] [address] [place] the home and he is generally independent with all ambulation without AD. Subjective Subjective He reports felling generally weak, but much better overall. Agrees to mobility assessment . New diagnosis of cancer in past 12 No months? Rehab PT IP Eval Objective Appearance Patient Behavior Appropriate Patient Orientation Person,Place,Time Difficulty following instructions none Speech Pattern Clear Ambulation Patient Able to Ambulate Yes Ambulation Observation IP General Gait Pattern Observation Wide Based Gait,Shuffling Step Ambulation Distance (feet) 20 Ambulation Assistive Device Rolling Walker Ambulation Ability Contact Guard/Hand Hold Balance Ability to Arise Able, uses arms to help Sitting Balance Steady, safe Standing Balance Steady, wide stance Dynamic Sitting Balance Ability Good Dynamic Standing Balance Ability Fair Transfers Bed Transfer Ability Contact Guard/Hand Hold Chair Transfer Ability Contact Guard/Hand Hold Sit to Stand Bed Transfer Ability Minimal x 1 (25% assist) Sit to Stand Chair Transfer Ability Minimal x 1 (25% assist) Rehab PT IP prob,goals,plan Problems Date of Evaluation: 04/21/23 PT IP Problems Bed Mobility,Transfers,Gait Rehab Potential Rehab Potential Good Plan PT Intervention Plan Bed Mobility,Transfers,Gait, Self care,Therapeutic Exercise PT Plan Frequency Daily Duration LOS Discharge Goals Bed Transfer Ability Supervision/Stand by Sit to Stand Chair Transfer Ability Supervision/Stand by Ambulation Assistive Device Rolling Walker Ambulation Distance (feet) 40 Discharge Plan PT Discharge Plan Pt is currently appropriate to return home once medically stable for d/c. [facility]
--- NOTE | 2023-04-21 11:41 | HMH.OTEV ---
OT Inpatient Evaluation Rehab OT IP Evaluation Start: 04/21/23 10:01 Freq: ONCE Status: Active Protocol: Document 04/21/23 11:29 [facility] (Rec: 04/21/23 11:40 [facility] [id number]) Rehab OT IP Assessment Subjective History Pt oriented x 3 on arrival. Pt is a 57 yowm adm to [facility] with SAUD and NSTEMI. Complications during admission required oral intubatiion for ~ 1 wk and pt was extubated 04/20. He has PMH of CAD, HTN, HLD< [place], [place]RA[place], HF. He reports he lives with [place] [address] [place] the home and he is generally independent with all ADLs and IADLs. He also still drove. Pt did not require any type of AE during ambulation. Subjective I feel better. Objective Patient Orientation Person,Place,Birthday Upper Extremity Gross ROM WFL Transfer Training Sit/Stand Transfer Assist Level Minimal x 1 (25% assist) Chair Transfer Ability Minimal x 1 (25% assist) Chair Transfer Technique Sit to/from Ambulatory Chair Transfer Assistive Devices Rolling Walker Lower Body Dressing Ability Assistance X1 Performing Toilet Hygiene Ability Assistance X1 Overall Commode/Toilet Transfer Ability Assistance x1 Commode/Toilet Transfer Technique Sit to/from Ambulatory Commode/Toilet Transfer Assistive Grab Bars Devices decrease in endurance Yes Rehab OT IP prob,goals,plan Problems Date of Evaluation: 04/21/23 OT IP Problems Bed Mobility,Transfers,Balance ,Self care,Safety Rehab Potential Rehab Potential Good Equipment Needs Assistive Devices Rolling / Wheeled Walker Plan OT intervention Plan Bed Mobility,Transfers,Balance ,Self care,Safety,Therapeutic Exercise OT Plan Frequency BID Duration LOS Discharge Goals Bed Mobility Ability Standby Assistance,Assistance x1 Sit to Stand Chair Transfer Ability Contact Guard/Hand Hold Chair Transfer Ability Contact Guard/Hand Hold Chair Transfer Technique Sit to/from Ambulatory Chair Transfer Assistive Devices Rolling Walker Feeding Ability Assist with Tray Set Up Lower Body Dressing Ability Assistance X1 Upper Body Dressing Ability Standby Assistance Bathing Ability Assistance x1 Performing Toilet Hygien
[2023-04-21 11:50] LABS: POC Glucose,Bedside 193 (70-110)
--- NOTE | 2023-04-21 13:45 | HMH.SLDYSPHA ---
Speech & Language Evaluation Speech/Language Dysphagia Evaluation Start: 04/21/23 13:35 Freq: ONCE Status: Active Protocol: Document 04/21/23 13:35 CARMENZA (Rec: 04/21/23 13:45 SOCRATESVIVIANLORRAINE [id number]) Dysphagia Assess/Goals/Plan Assessment Date of Evaluation: 04/21/23 Evaluation Type Initial Certification Assessment/Problems Post-extubation protocol per MD order Does Patient Qualify for Service No Qualify/Failure Comment Based on clinical observations made at the bedside during the swallow evaluation, mastication and swallowing appear to be WFL. No further skilled speech therapy services are warranted at this time. WOOL HANKER will f/u if needed. Recommendations PHYSICIAN CERTIFICATION: The specified therapy services are required, authorized, and reviewed every 30 days. Diet Recommendations Normal Liquid Type Recommendations Normal/Thin SL Swallow Guidelines Standard Aspiration Prec.,Eat at slow rate Dysphagia Swallow Precautions/Strategies Sitting Upright (90 deg),Small Bites and Sips,Alternate Liquids/Solids Place Food on Either side of Mouth Plan Pt/Guardian verbally ack understanding Yes of dx/prognosis/goals G -code Required No Education Instructions provided Discussed CSE results, diet recommendations, and standard aspiration precautions with pt and family, nursing, and care management all of which expressed understanding. Pt/Caregiver able to recall information Able to recall/restate Reinforcement needed No Speech & Language HPI History Present Illness Description of Patient Problem Patient is a 57-year-old male with past medical history of diabetes mellitus tobacco use polycythemia vera presented to hospital due to nausea vomiting and dizziness. He was admitted 04/09/23, intubated 04/12/23 2' respiratory failure and a collapsed lung in order to give lungs time to heal per chart review report, and extubated 04/20/23 at 12: 26 PM per report. His most recent chest xray (04/21)
--- NOTE | 2023-04-21 14:29 | DIET.NUTRFU ---
Patient was extubated yesterday and MELTER OPERATOR upgraded to regular diet today. Had BM yesterday. Anticipate good meal intake. Up moving around with therapy. Will continue to monitor po intake. No dietary concerns at this time.
--- NOTE | 2023-04-21 15:39 | PC.NURSE ---
pt is a/o x 4 and pleasant with staff. pt has worked with PT/OT/ST this shift. pt is able to stand from bed/chair/commode with minimal assist x1 and walker. pt has had family visiting this shift as well. he has been up to the bathroom 3 times thus far this shift and has had 3 BM. nad noted. pt is currently on 3lpm nc.
[2023-04-21 17:10] LABS: POC Glucose,Bedside 178 (70-110)
--- NOTE | 2023-04-21 18:42 | EXP.PN ---
Subjective *Date: 04/21/23 *Time: 18:42 Interval history: No acute respiratory events overnight. Successfully extubated to NC. Weaned to 3 L. Denies any new respiratory complaintsl, he is feeling better Exam Data for Last 24 hours Vital signs and Labs for Last 24 Hours: Temp Pulse Resp BP Pulse Ox O2 Del Method O2 Flow Rate 98.4 F 62 20 147/92 H 93 L Nasal Cannula 3 04/21/23 15:17 04/21/23 18:00 04/21/23 18:00 04/21/23 18:00 04/21/23 18:00 04/21/23 18:00 04/21/23 18:00 FiO2 70 04/20/23 10:00 Laboratory Results - last 24 hr 04/20/23 20:10: POC Glucose 90 04/21/23 05:11: POC Glucose 83 04/21/23 05:39: Sodium 135 L, Potassium 3.8, Chloride 101, Carbon Dioxide 30, Anion Gap 7.8, BUN 37 H, Creatinine 0.80, Estimated Creat Clear 132, Estimated GFR 100, Est GFR ( Amer) 121, Glucose 91 D, Calcium 8.3 L, Total Bilirubin 3.8 H, AST 35, ALT 34, Alkaline Phosphatase 69, Total Protein 6.3, Albumin 3.3 L, Globulin 3.0, Albumin/Globulin Ratio 1.1 04/21/23 11:44: POC Glucose 193 H 04/21/23 17:02: POC Glucose 178 H I & O for Last 24 hours: Intake & Output 04/18/23 04/19/23 04/20/23 04/21/23 23:59 23:59 23:59 23:59 Intake Total 2932.317 / 3472.317 1896.652 / 2152.652 1081.89 / 1081.89 800 / 800 Output Total 5585 / 5685 3345 / 3595 2540 / 2540 3125 / 3125 Balance -2652.683 / -2212.683 -1448.348 / -1442.348 -1458.11 / -1458.11 -2325 / -2325 Weight 85.445 kg 85.417 kg 90.8 kg 79.634 kg Narrative: patient seen at 9.30AM Constitutional Constitutional: no acute distress *Routine HEENT Exam Head: Present normocephalic Eye: Present EOMI and PERRL ENT: Present mucous membranes moist *Routine Neck Exam Neck: Present supple; Absent lymphadenopathy *Routine Respiratory Exam Respiratory: Present CTA bilaterally and distant breath sounds Comments: no wheezing noted *Routine Cardiovascular Exam Cardiovascular: Present RRR *Routine Abdominal Exam Abdominal: Present soft and normoactive bowel sounds; Absent tenderness *Routine Extremities Exam Extremities: Absent cyanosis, clubbing or edema *Routine Skin Exam Skin: Present warm; Absent rash *Routine Neurological Exam Neurological: Present alert and oriented X3 Assessment and Plan *Assessment and plan (1) Acute respiratory failure with hypoxia and hypercarbia: Status: Acute Category: Medical Code(s): J96.01 - Acute respiratory failure with hypoxia; J96.02 - Acute respiratory failure with hypercapnia (2) Pneumonia: Status: Acute Qualifiers: Pneumonia type: due to unspecified organism Laterality: right Lung location: lower lobe of lung Qualified Code(s): J18.9 - Pneumonia, unspecified organism Category: Medical Code(s): J18.9 - Pneumonia, unspecified organism (3) On mechanically assisted ventilation: Status: Acute Category: Medical Code(s): Z99.11 - Dependence on respirator [ventilator] status (4) Non-ST elevation [place] (NSTEMI): Status: Acute Category: Medical Code(s): I21.4 - Non-ST elevation (NSTEMI) myocardial infarction (5) Diabetes mellitus: Status: Acute Qualifiers: Diabetes mellitus type: type 2 Diabetes mellitus chcf insulin use: without weaver tire cord use Diabetes mellitus complication status: without complication Qualified Code(s): E11.9 - Type 2 diabetes mellitus without complications Category: Medical Code(s): E11.9 - Type 2 diabetes mellitus without complications (6) Polycythemia vera: Problem Comment: Awaiting evaluation by hematology oncology at [facility]. Status: Chronic Category: Medical Code(s): D45 - Polycythemia vera (7) CAD (coronary atherosclerotic disease): Problem Comment: Recent stent procedure Status: Chronic Qualifiers: Coronary Disease-Associated Artery/Lesion type: [place] artery [place] vs. transplanted heart: [place] [facility]
--- NOTE | 2023-04-21 20:00 | PC.NURSE ---
Pt has been assigned a bed at [facility]. Room 5A.
--- NOTE | 2023-04-21 20:08 | PC.NURSE ---
Report called to Alexi STEWART at [facility] at this time.
[2023-04-21 20:35] LABS: POC Glucose,Bedside 60 (70-110)
[2023-04-21 21:12] LABS: POC Glucose,Bedside 103 (70-110)
[2023-04-22] VITALS (8 sets, daily range): BP systolic 128–153; BP diastolic 82–109; PULSE 56–81; RESP 15–18; TEMP 36.6–36.7; O2SAT 86–98; BMI 23.8
[2023-04-22 06:04] LABS: POC Glucose,Bedside 74 (70-110)
[2023-04-22 06:32] LABS: Alanine Aminotransferase 45 U/L (12-78); Albumin Level 3.8 g/dl (3.5-5.0); Albumin/Globulin Ratio 1.2 (1.1-1.8); Alkaline Phosphatase 83 U/L (38-126); Anion Gap 10.9 mEq/L (5-15); Aspartate Amino Transferase 51 U/L (17-59); Bilirubin,Total 4.2 mg/dl (0.2-1.3); Blood Urea Nitrogen 34 mg/dl (9-20); Calcium 8.3 mg/dl (8.4-10.2); Carbon Dioxide 33 mmol/L (22.0-30.0); Chloride 95 mmol/L (98-107); Creatinine Clearance Estimated 103 mL/min (50-200); Estimated Glomerular Filt Rate 87 ml/min (>60); GFR (African American) 106 ML/MIN (>60); Globulin 3.2 g/dL (1.3-3.2); Glucose 86 mg/dl (74-100); Potassium 3.9 mmoL/L (3.5-5.1); Sodium 135 mmol/L (136-145)
--- NOTE | 2023-04-22 11:19 | EXP.PULM.PN ---
Subjective *Date: 04/22/23 *Time: 11:19 Pulmonology Exam Inpatient Vital signs and Labs for Last 24 Hours: Temp Pulse Resp BP Pulse Ox O2 Del Method O2 Flow Rate 97.8 F 62 18 149/109 H 86 L Nasal Cannula 1 04/22/23 07:45 04/22/23 08:00 04/22/23 07:45 04/22/23 07:45 04/22/23 08:00 04/22/23 08:00 04/22/23 08:00 FiO2 70 04/20/23 10:00 Laboratory Results - last 24 hr 04/21/23 11:44: POC Glucose 193 H 04/21/23 17:02: POC Glucose 178 H 04/21/23 20:28: POC Glucose 60 L 04/21/23 21:06: POC Glucose 103 04/22/23 05:56: POC Glucose 74 04/22/23 05:59: Sodium 135 L, Potassium 3.9, Chloride 95 L, Carbon Dioxide 33 H, Anion Gap 10.9, BUN 34 H, Creatinine 0.90, Estimated Creat Clear 103, Estimated GFR 87, Est GFR ( Amer) 106, Glucose 86, Calcium 8.3 L, Total Bilirubin 4.2 H, AST 51 D, ALT 45 D, Alkaline Phosphatase 83, Total Protein 7.0, Albumin 3.8 D, Globulin 3.2, Albumin/Globulin Ratio 1.2 I & O for Labs for Last 24 Hours: Intake & Output 04/19/23 04/20/23 04/21/23 04/22/23 23:59 23:59 23:59 23:59 Intake Total 1896.652 / 2152.652 1081.89 / 1081.89 800 / 1160 600 / 600 Output Total 3345 / 3595 2540 / 2540 3125 / 3125 0 / 0 Balance -1448.348 / -1442.348 -1458.11 / -1458.11 -2325 / -1965 600 / 600 Weight 188 lb 5 oz 200 lb 2.876 oz 175 lb 9 oz 175 lb 9.007 oz Microbiology Reports for the Last 24 Hours: Microbiology 04/17/23 09:30 Sputum - Endotracheal Tube Aspirate Gram Stain - Final 04/17/23 09:30 Sputum - Endotracheal Tube Aspirate Sputum Culture - Final Constitutional: Present mild distress Comment:: Intubated and Sedated Head: Present normocephalic and atraumatic Comment:: uvular edema noted. No stridor Neck: Present normal inspection and trachea midline Respiratory: Absent respiratory distress, rhonchi or wheezes Cardiac: Present S1/S2 and Tachycardia GI: Present soft; Absent distention or tenderness Skin: Present intact; Absent cyanosis Neuro: Present alert, awake and oriented x 3 Comment:: Intubated and sedated Extremities: Present normal inspection; Absent clubbing or cyanosis Psychiatric: Present unable to assess Assessment and Plan *Assessment and plan (1) Acute respiratory failure with hypoxia and hypercarbia: Status: Acute Category: Medical Code(s): J96.01 - Acute respiratory failure with hypoxia; J96.02 - Acute respiratory failure with hypercapnia (2) Pneumonia: Status: Acute Qualifiers: Pneumonia type: due to unspecified organism Laterality: right Lung location: lower lobe of lung Qualified Code(s): J18.9 - Pneumonia, unspecified organism Category: Medical Code(s): J18.9 - Pneumonia, unspecified organism Plan Mr. Kwan is a 57-year-old male history of tobacco abuse, severe sleep apnea AHI- 57, presented to the hospital over the weekend complaining of vomiting and dizziness he had admission hospital denies any chest pain or shortness of breath. Patient was admitted and was being managed for acute kidney injury and elevated troponins. CTA upon admission, no evidence of pulmonary embolism. No dense consolidations or airspace disease noted. Mild lower lobe groundglass opacities and subpleural atelectasis noted. CT abdomen from 04/10/2023 a day after CTA showed complete right lower lobe collapse / consolidation Chest x-ray was decreasing lung volumes on the right lower lung field Afebrile. Hemodynamically stable. Worsening leukocytosis. Patient was also managed for demand ischemia NSTEMI heparin drip on admission. Patient admission had significant hypercarbic respiratory failure needing BiPAP support eventually improved however noted to have new worsening hypoxia likely from new right lower lobe pneumonia Patient had new right lower lobe pneumonia on admission including intubation mechanical ventilatory support. He completed vancomycin and cefepime. Sputum cultures cultures along with nasal MRSA PCR negative. Patient res
--- NOTE | 2023-04-22 11:23 | SW/DCPLANNER ---
I spoke w/ this patient regarding discharge plans. Patient stated that he resides at home w/ family and intends on returning home. PT/OT evaluated patient and recommended outpatient PT or home w/ home health. Patient is agreeable to outpatient PT at [facility]. I have notified Design Engineering Manager for appointment and MD for order. Patient also stated that he has home O2 concentrator but will need a portable tank and a rolling walker: I have updated Brianna w/ CM. The plan for this patient is to return home today. I have provided this patient w/ [facility] Resource list as well for any future needs. Patient has no further questions/needs at this time.
[2023-04-22 12:11] LABS: POC Glucose,Bedside 84 (70-110)
--- NOTE | 2023-04-22 13:28 | EXP.DC.SUM ---
General Admission date:: 04/09/23 Discharge date: 04/22/23 HPI HPI HPI: Patient is a 57-year-old male with past medical history of diabetes mellitus tobacco use polycythemia vera presented to hospital due to nausea vomiting and dizziness. According the patient he has been feeling sick for the past 1 day. He has not been able to tolerate diet however at time of evaluation he says his symptoms have improved. He denied chest pain shortness of breath numbness tingling sensation weakness in arms or legs. He denied fevers chills. Mr. Kwan is a 57-year-old male with a history of diabetes type 2, tobacco use, polycythemia vera who was admitted to the hospital with nausea, vomiting, and dizziness. He was found to have elevated troponins, and deemed to have an NSTEMI. He has been seen by cardiology, and may be having a cath tomorrow. He also has acute kidney injury but creatinine has been resolving. At the time of admission, his total bilirubin was 1.5, AST was 108, ALT was 79. He had a CT PE protocol yesterday to rule out a PE, and there is incidental finding of mild pericholecystic fat stranding, possibly concerning for cholecystitis. He also had right lower lobe consolidation, that was very prominent upon my review of the images. He had some nausea vomiting yesterday, but today he denies nausea or vomiting. He is hungry and wishes he had something to eat. He denies right upper quadrant abdominal pain. He did receive IV steroids, is on Zosyn for the right lower lobe pneumonia, and is on a heparin drip for NSTEMI. Hospital Course Hospital Course Hospital Course: Patient was seen and evaluated at the bedside on the day of discharge. Patient is stable for discharge. Patient wishes to be discharged. All patient questions were answered and patient was given time to ask questions. Patient was discharged in stable condition. Patient is a 57-year-old male with past medical history of diabetes mellitus polycythemia vera tobacco use, COPD on home oxygen who presented to hospital with vomiting dizziness shortness of breath. Assessment Acute on chronic hypoxic hypercapnic respiratory failure - improved ARDS - improved Pneumonia COPD Exacerbation - improved NSTEMI - stable Hypertension Heart failure with preserved ejection fraction Hyperlipidemia Polycythemia vera Diabetes mellitus Suspected cholecystitis on CT abdomen DC on Trelogy, pulmonary cleared patient for dc, patient to f/u with pulmonology as OP, patient given discharge instructions and verblazed back to confirm, patient wishes to be discharged Exam Data for Last 24 hours Vital signs and Labs for Last 24 Hours: Temp Pulse Resp BP Pulse Ox O2 Del Method O2 Flow Rate 98.1 F 81 18 128/86 94 L Room Air 1 04/22/23 11:21 04/22/23 11:21 04/22/23 11:21 04/22/23 11:21 04/22/23 11:21 04/22/23 11:21 04/22/23 11:00 FiO2 70 04/20/23 10:00 Laboratory Results - last 24 hr 04/21/23 17:02: POC Glucose 178 H 04/21/23 20:28: POC Glucose 60 L 04/21/23 21:06: POC Glucose 103 04/22/23 05:56: POC Glucose 74 04/22/23 05:59: Sodium 135 L, Potassium 3.9, Chloride 95 L, Carbon Dioxide 33 H, Anion Gap 10.9, BUN 34 H, Creatinine 0.90, Estimated Creat Clear 103, Estimated GFR 87, Est GFR ( Amer) 106, Glucose 86, Calcium 8.3 L, Total Bilirubin 4.2 H, AST 51 D, ALT 45 D, Alkaline Phosphatase 83, Total Protein 7.0, Albumin 3.8 D, Globulin 3.2, Albumin/Globulin Ratio 1.2 04/22/23 12:04: POC Glucose 84 I & O for Last 24 hours: Intake & Output 04/19/23 04/20/23 04/21/23 04/22/23 23:59 23:59 23:59 23:59 Intake Total 1896.652 / 2152.652 1081.89 / 1081.89 800 / 1160 720 / 720 Output Total 3345 / 3595 2540 / 2540 3125 / 3125 0 / 0 Balance -1448.348 / -1442.348 -1458.11 / -1458.11 -2325 / -1965 720 / 720 Weight 85.417 kg 90.8 kg 79.634 kg 79.634 kg Microbiology Reports for the Last 24 Hours: Microbiology 04/17/23 09:30 Sputum - Endotracheal Tube Aspi
--- NOTE | 2023-04-22 14:24 | CARE MANAGER ---
Nurse reports patient was 86% on RA at rest this morning.
--- NOTE | 2023-04-26 15:08 | CARE MANAGER ---
Attempted to contact patient x2 related to hospital discharge. No VM option. PAT Rai
== END 2023-04-22 14:39 | disposition home or self-care (01) | DRG 207 ==
LOC: ER 17:35 → 2ND 18:23
PROVIDERS: Internal Medicine Adolescent Medicine; Internal Medicine Pulmonary Disease; Nurse Practitioner Family; Physician Assistant; Student in an Organized Health Care Education/Training Program; Surgery; Admitting Provider Internal Medicine; Emergency Provider Emergency Medicine; PCP Emergency Medicine; Visit Provider Internal Medicine
PROC: 5A1955Z Respiratory Ventilation, Greater than 96 Consecutive Hours (ICD-10-PCS; principal; 2023-04-12 14:30)
PROC: 0B9D8ZZ Drainage of Right Middle Lung Lobe, Via Natural or Artificial Opening Endoscopic (ICD-10-PCS; principal; 2023-04-19 13:00)
DX: J80 Acute respiratory distress syndrome (principal); J18.9 Pneumonia, unspecified organism; I21.A1 Myocardial infarction type 2; N17.9 Acute kidney failure, unspecified; J98.19 Other pulmonary collapse; I50.30 Unspecified diastolic (congestive) heart failure; J44.0 Chronic obstructive pulmonary disease with (acute) lower respiratory infection; J44.1 Chronic obstructive pulmonary disease with (acute) exacerbation; K81.0 Acute cholecystitis; E86.0 Dehydration; Z95.5 Presence of coronary angioplasty implant and graft; D45 Polycythemia vera; I25.10 Atherosclerotic heart disease of native coronary artery without angina pectoris; E11.9 Type 2 diabetes mellitus without complications; G47.33 Obstructive sleep apnea (adult) (pediatric); K21.9 Gastro-esophageal reflux disease without esophagitis; F17.210 Nicotine dependence, cigarettes, uncomplicated; J44.9 Chronic obstructive pulmonary disease, unspecified; M19.90 Unspecified osteoarthritis, unspecified site; E78.5 Hyperlipidemia, unspecified; I10 Essential (primary) hypertension; I34.0 Nonrheumatic mitral (valve) insufficiency; I11.0 Hypertensive heart disease with heart failure; I50.810 Right heart failure, unspecified; I27.81 Cor pulmonale (chronic); R00.1 Bradycardia, unspecified; Z99.81 Dependence on supplemental oxygen
CPT/HCPCS: 31500; 94002; 31624 ×2; 36415; 70450; 70496; 70498; 71045; 71275; 74018; 74176; 76705; 80048; 80053; 80202; 81001; 82803; 82962; 83735; 84100; 84145; 84484; 85007; 85014; 85018; 85025; 85610; 85730; 87040; 87070; 87081; 87102; 87205; 87206; 87632; 87635; 87899; 89051; 92610; 93005; 93306; 94003; 94640; 94660; 94761; 97116; 97163; 97166; 97530; 99152; 99153; 99195; 99285; J0330; J0456; J2405; J2543; J2704; Q9967

== ENCOUNTER → 2023-04-28 13:42 | Outpatient (CLI) | payer OTHER, SELFPAY ==
[2023-04-28 14:27] LABS: Basophils # 0.1 K/mm3 (0-0.2); Basophils % 0.6 % (0.1-2.0); Eosinophils # 0.3 K/mm3 (0.0-0.4); Eosinophils % 3.5 % (0.1-12.0); Hematocrit 47.3 % (42.0-52.0); Hemoglobin 15.5 g/dL (14.1-18.0); Lymphocytes # 1.9 K/mm3 (0.7-4.5); Lymphocytes % 23.8 % (10-50); Mean Corpuscular HGB Conc 32.8 g/dL (31.8-35.4); Mean Corpuscular Hemoglobin 31.6 pg (27.0-31.2); Mean Corpuscular Volume 96.3 fl (80-94); Mean Platelet Volume 8.6 fl (7.4-10.4); Monocytes # 0.4 K/mm3 (0.1-1.0); Monocytes % 5.1 % (1.7-9.3); Neutrophils # 5.4 K/mm3 (1.8-7.8); Neutrophils % 66.9 % (37.0-80.0); Platelet Count 136 K/mm3 (142-424); Red Blood Count 4.91 M/mm3 (4.60-6.20); Red Cell Distribution Width 15.2 % (11.5-17.5); White Blood Count 8.1 K/mm3 (4.8-10.8)
[2023-04-28 14:41] LABS: Alanine Aminotransferase 57 U/L (12-78); Albumin Level 3.6 g/dl (3.5-5.0); Albumin/Globulin Ratio 1.3 (1.1-1.8); Alkaline Phosphatase 110 U/L (38-126); Amylase 59 U/L (30-110); Anion Gap 13.4 mEq/L (5-15); Aspartate Amino Transferase 48 U/L (17-59); Bilirubin,Total 0.3 mg/dl (0.2-1.3); Blood Urea Nitrogen 14 mg/dl (9-20); Calcium 8.9 mg/dl (8.4-10.2); Carbon Dioxide 29 mmol/L (22.0-30.0); Chloride 97 mmol/L (98-107); Estimated Glomerular Filt Rate 117 ml/min (>60); GFR (African American) 141 ML/MIN (>60); Globulin 2.8 g/dL (1.3-3.2); Glucose 188 mg/dl (74-100); Lipase 121 U/L (23-300); Potassium 4.4 mmoL/L (3.5-5.1); Sodium 135 mmol/L (136-145); Total Protein,Serum 6.4 g/dl (6.3-8.2)
== END ==
LOC: LAB 13:42
PROVIDERS: PCP Emergency Medicine; Visit Provider Surgery
DX: R10.11 Right upper quadrant pain (principal)
CPT/HCPCS: 36415; 80053; 82150; 83690; 85025

== ENCOUNTER → 2023-05-10 11:45 | Outpatient (CLI) | payer OTHER, SELFPAY ==
[2023-05-10 12:08] LABS: Basophils % 0.6 % (0.1-2.0); Eosinophils # 0.3 K/mm3 (0.0-0.4); Eosinophils % 4.8 % (0.1-12.0); Hematocrit 48.9 % (42.0-52.0); Lymphocytes % 32.1 % (10-50); Mean Corpuscular HGB Conc 32.7 g/dL (31.8-35.4); Mean Corpuscular Volume 94.9 fl (80-94); Mean Platelet Volume 8.1 fl (7.4-10.4); Monocytes # 0.6 K/mm3 (0.1-1.0); Monocytes % 9.8 % (1.7-9.3); Neutrophils # 3.4 K/mm3 (1.8-7.8); Neutrophils % 52.7 % (37.0-80.0); Platelet Count 148 K/mm3 (142-424); Red Blood Count 5.15 M/mm3 (4.60-6.20); Red Cell Distribution Width 15.5 % (11.5-17.5); White Blood Count 6.4 K/mm3 (4.8-10.8)
[2023-05-10 12:49] LABS: Anion Gap 10.1 mEq/L (5-15); Blood Urea Nitrogen 14 mg/dl (9-20); Carbon Dioxide 35 mmol/L (22.0-30.0); Chloride 95 mmol/L (98-107); Estimated Glomerular Filt Rate 139 ml/min (>60); GFR (African American) 169 ML/MIN (>60); Glucose 149 mg/dl (74-100); Potassium 4.1 mmoL/L (3.5-5.1); Sodium 136 mmol/L (136-145)
== END ==
LOC: LAB 11:46
PROVIDERS: PCP Emergency Medicine; Visit Provider Internal Medicine
DX: I25.10 Atherosclerotic heart disease of native coronary artery without angina pectoris (principal); I11.9 Hypertensive heart disease without heart failure; D45 Polycythemia vera; J43.9 Emphysema, unspecified; J44.9 Chronic obstructive pulmonary disease, unspecified; F17.210 Nicotine dependence, cigarettes, uncomplicated
CPT/HCPCS: 36415; 80048; 85025

== ENCOUNTER 2023-06-28 08:01 | Outpatient (CLI) | payer BC, SELFPAY ==
[2023-06-28 08:45] VITALS: PULSE 82; PULSE 88
[2023-06-28] MEDS: ALBUTEROL 0.083% 2.5 MG/3 ML NEB IH (08:45)
== END 2023-06-28 23:59 ==
PROVIDERS: PCP Internal Medicine; Visit Provider Internal Medicine Pulmonary Disease
DX: R06.09 Other forms of dyspnea (principal)
CPT/HCPCS: 94060; 94618; 94640; 94726; 94729

== ENCOUNTER 2023-07-01 08:53 | Outpatient (CLI) | payer BC, SELFPAY ==
[2023-07-01 09:24] LABS: Basophils # 0.1 K/mm3 (0-0.2); Basophils % 0.8 % (0.1-2.0); Eosinophils # 0.2 K/mm3 (0.0-0.4); Eosinophils % 2.2 % (0.1-12.0); Hematocrit 48.8 % (42.0-52.0); Hemoglobin 15.9 g/dL (14.1-18.0); Lymphocytes # 2.3 K/mm3 (0.7-4.5); Lymphocytes % 24.8 % (10-50); Mean Corpuscular HGB Conc 32.6 g/dL (31.8-35.4); Mean Corpuscular Hemoglobin 31.7 pg (27.0-31.2); Mean Platelet Volume 8.5 fl (7.4-10.4); Monocytes # 0.6 K/mm3 (0.1-1.0); Neutrophils # 5.9 K/mm3 (1.8-7.8); Neutrophils % 65.2 % (37.0-80.0); Platelet Count 161 K/mm3 (142-424); Red Blood Count 5.03 M/mm3 (4.60-6.20); Red Cell Distribution Width 16.9 % (11.5-17.5); White Blood Count 9.1 K/mm3 (4.8-10.8)
[2023-07-01 09:27] LABS: Hemoglobin A1C 7.7 % (4.0-6.0)
[2023-07-01 10:01] LABS: Alanine Aminotransferase 44 U/L (12-78); Albumin Level 4.2 g/dl (3.5-5.0); Alkaline Phosphatase 76 U/L (38-126); Anion Gap 7.6 mEq/L (5-15); Aspartate Amino Transferase 51 U/L (17-59); Bilirubin,Indirect 0.6 mg/dL (0.0-0.9); Bilirubin,Total 0.6 mg/dl (0.2-1.3); Bilirubin,Unconjugated 0.6 mg/dL (0.0-1.1); Blood Urea Nitrogen 14 mg/dl (9-20); Calcium 8.9 mg/dl (8.4-10.2); Carbon Dioxide 35 mmol/L (22.0-30.0); Chloride 96 mmol/L (98-107); Chol/HDL Ratio 4.4 (1-3.5); Cholesterol 136 mg/dl (140-200); Estimated Glomerular Filt Rate 100 ml/min (>60); GFR (African American) 121 ML/MIN (>60); Glucose 156 mg/dl (74-100); HDL Cholesterol 31 mg/dl (40-60); Magnesium 1.6 mg/dl (1.6-2.3); Potassium 4.6 mmoL/L (3.5-5.1); Sodium 134 mmol/L (136-145); Triglycerides 126 mg/dl (30-150); VLDL Cholesterol 25 mg/dL (0-40)
[2023-07-01 10:12] LABS: Direct LDL Cholesterol 87.74 mg/dL (100-129)
[2023-07-01 10:17] LABS: Free T4 (Free Thyroxine) 1.14 ng/dl (0.78-2.19)
[2023-07-01 10:31] LABS: Thyroid Stimulating Hormone 1.73 uIU/mL (0.465-4.68)
== END 2023-07-01 23:59 ==
LOC: LAB 08:55
PROVIDERS: Visit Provider Nurse Practitioner
DX: E11.9 Type 2 diabetes mellitus without complications (principal); E78.5 Hyperlipidemia, unspecified; I25.10 Atherosclerotic heart disease of native coronary artery without angina pectoris; J44.9 Chronic obstructive pulmonary disease, unspecified; Z79.84 Long term (current) use of oral hypoglycemic drugs; Z79.85 Long-term (current) use of injectable non-insulin antidiabetic drugs; Z87.891 Personal history of nicotine dependence
CPT/HCPCS: 36415; 80048; 80061; 80076; 83036; 83735; 84439; 84443; 85025

== ENCOUNTER 2023-07-22 11:16 | Outpatient (CLI) | payer BC, SELFPAY ==
[2023-07-22 11:42] LABS: Basophils # 0.1 K/mm3 (0-0.2); Basophils % 0.7 % (0.1-2.0); Eosinophils # 0.3 K/mm3 (0.0-0.4); Eosinophils % 2.8 % (0.1-12.0); Hemoglobin 16.7 g/dL (14.1-18.0); Lymphocytes # 2.6 K/mm3 (0.7-4.5); Lymphocytes % 25.4 % (10-50); Mean Corpuscular HGB Conc 32.8 g/dL (31.8-35.4); Mean Corpuscular Volume 97.6 fl (80-94); Mean Platelet Volume 8.3 fl (7.4-10.4); Monocytes # 0.6 K/mm3 (0.1-1.0); Monocytes % 5.9 % (1.7-9.3); Neutrophils # 6.6 K/mm3 (1.8-7.8); Neutrophils % 65.2 % (37.0-80.0); Platelet Count 148 K/mm3 (142-424); Red Blood Count 5.23 M/mm3 (4.60-6.20); Red Cell Distribution Width 16.1 % (11.5-17.5); White Blood Count 10.2 K/mm3 (4.8-10.8)
[2023-07-22 13:32] LABS: Vitamin B12 886 pg/mL (239-931)
[2023-07-22 13:33] LABS: Folate > 20.00 ng/mL
== END 2023-07-22 23:59 ==
LOC: LAB 11:17
PROVIDERS: PCP Nurse Practitioner Family; Visit Provider Internal Medicine Medical Oncology
DX: D45 Polycythemia vera (principal)
CPT/HCPCS: 36415; 82607; 82746; 85025

== ENCOUNTER 2023-08-31 13:52 | Outpatient (POV) | payer BC, SELFPAY | END 2023-08-31 23:59 | disposition home or self-care (01) | LOC: SC 13:52 | PROVIDERS: PCP Nurse Practitioner Family; Visit Provider Dermatology | DX: Z00.00 Encounter for general adult medical examination without abnormal findings (principal) ==

== ENCOUNTER 2023-09-14 10:37 | Outpatient (POV) | payer BC, SELFPAY | END 2023-09-14 23:59 | disposition home or self-care (01) | LOC: SC 10:37 | PROVIDERS: PCP Nurse Practitioner Family; Visit Provider Dermatology | DX: Z00.00 Encounter for general adult medical examination without abnormal findings (principal) ==

== ENCOUNTER 2023-11-17 08:19 | Outpatient (CLI) | payer BC, SELFPAY ==
[2023-11-17 08:43] LABS: Basophils # 0.2 K/mm3 (0-0.2); Basophils % 2.4 % (0.1-2.0); Eosinophils # 0.1 K/mm3 (0.0-0.4); Eosinophils % 1.5 % (0.1-12.0); Lymphocytes % 12.2 % (10-50); Mean Corpuscular HGB Conc 29.9 g/dL (31.8-35.4); Mean Corpuscular Hemoglobin 27.9 pg (27.0-31.2); Mean Corpuscular Volume 93.3 fl (80-94); Mean Platelet Volume 8.9 fl (7.4-10.4); Monocytes # 1.2 K/mm3 (0.1-1.0); Monocytes % 14.2 % (1.7-9.3); Neutrophils % 69.8 % (37.0-80.0); Platelet Count 161 K/mm3 (142-424); Red Blood Count 6.44 M/mm3 (4.60-6.20); Red Cell Distribution Width 18.6 % (11.5-17.5); White Blood Count 8.5 K/mm3 (4.8-10.8)
[2023-11-17 09:38] LABS: Hematocrit 60.1 % (42.0-52.0)
[2023-11-17 10:30] LABS: Alanine Aminotransferase 27 U/L (12-78); Albumin Level 3.8 g/dl (3.5-5.0); Alkaline Phosphatase 90 U/L (38-126); Aspartate Amino Transferase 41 U/L (17-59); Bilirubin,Direct 0.1 mg/dl (0.0-0.4); Bilirubin,Indirect 0.9 mg/dL (0.0-0.9); Bilirubin,Unconjugated 0.9 mg/dL (0.0-1.1); Blood Urea Nitrogen 18 mg/dl (9-20); Calcium 9.2 mg/dl (8.4-10.2); Chloride 85 mmol/L (98-107); Chol/HDL Ratio 3.3 (1-3.5); Cholesterol 85 mg/dl (140-200); Estimated Glomerular Filt Rate 87 ml/min (>60); GFR (African American) 105 ML/MIN (>60); Glucose 136 mg/dl (74-100); HDL Cholesterol 26 mg/dl (40-60); Magnesium 1.3 mg/dl (1.6-2.3); Potassium 4.2 mmoL/L (3.5-5.1); Sodium 138 mmol/L (136-145); Total Protein,Serum 6.9 g/dl (6.3-8.2); Triglycerides 120 mg/dl (30-150); VLDL Cholesterol 24 mg/dL (0-40)
[2023-11-17 10:39] LABS: Anion Gap 12.2 mEq/L (5-15); Carbon Dioxide 45 mmol/L (22.0-30.0)
[2023-11-17 10:41] LABS: Direct LDL Cholesterol 54.15 mg/dL (100-129)
[2023-11-17 10:47] LABS: Free T4 (Free Thyroxine) 1.37 ng/dl (0.78-2.19)
[2023-11-17 11:00] LABS: Thyroid Stimulating Hormone 1.03 uIU/mL (0.465-4.68)
== END 2023-11-17 23:59 | disposition home or self-care (01) ==
LOC: LAB 08:20
PROVIDERS: PCP Nurse Practitioner Family; Visit Provider Physician Assistant
DX: E11.9 Type 2 diabetes mellitus without complications (principal); E78.2 Mixed hyperlipidemia; D45 Polycythemia vera; I11.9 Hypertensive heart disease without heart failure; I25.10 Atherosclerotic heart disease of native coronary artery without angina pectoris; J44.9 Chronic obstructive pulmonary disease, unspecified; Z79.84 Long term (current) use of oral hypoglycemic drugs; Z79.85 Long-term (current) use of injectable non-insulin antidiabetic drugs; Z87.891 Personal history of nicotine dependence
CPT/HCPCS: 36415; 80048; 80061; 80076; 83735; 84439; 84443; 85025

== ENCOUNTER 2023-11-25 11:27 | Outpatient (CLI) | payer BC, SELFPAY ==
--- NOTE | 2023-11-25 12:13 | PC.NURSE ---
1156- Vy Robert began therapuetic phlebotomy. 18g IV started by RN in right ac. 250ml whole blood drawn off. stop time 1206. BP post phlebotomy 135/78, HR 88. Pt tolerated well and is scheduled for f/u labs and potential phlebotomy in 1 month, 12/20/23.
== END 2023-11-25 12:16 | disposition home or self-care (01) ==
LOC: INF 11:28
PROVIDERS: PCP Nurse Practitioner Family; Visit Provider Internal Medicine Medical Oncology
DX: D75.1 Secondary polycythemia (principal); J44.9 Chronic obstructive pulmonary disease, unspecified; G47.30 Sleep apnea, unspecified; F17.210 Nicotine dependence, cigarettes, uncomplicated
CPT/HCPCS: 99195

== ENCOUNTER 2023-12-20 08:44 | Outpatient (CLI) | payer BC, SELFPAY ==
[2023-12-20 08:48] VITALS: BMI 30.2
[2023-12-20 09:08] LABS: Basophils # 0.1 K/mm3 (0-0.2); Basophils % 1.2 % (0.1-2.0); Eosinophils # 0.1 K/mm3 (0.0-0.4); Eosinophils % 1.6 % (0.1-12.0); Lymphocytes # 1.5 K/mm3 (0.7-4.5); Lymphocytes % 16.9 % (10-50); Mean Corpuscular HGB Conc 31.3 g/dL (31.8-35.4); Mean Corpuscular Hemoglobin 28.1 pg (27.0-31.2); Mean Corpuscular Volume 89.8 fl (80-94); Mean Platelet Volume 8.5 fl (7.4-10.4); Monocytes # 0.6 K/mm3 (0.1-1.0); Monocytes % 6.4 % (1.7-9.3); Neutrophils # 6.7 K/mm3 (1.8-7.8); Neutrophils % 73.9 % (37.0-80.0); Platelet Count 113 K/mm3 (142-424); Red Blood Count 6.91 M/mm3 (4.60-6.20); Red Cell Distribution Width 18.7 % (11.5-17.5)
[2023-12-20 09:18] LABS: Hematocrit 62.1 % (42.0-52.0)
[2023-12-20 09:28] VITALS: BP 153/110; PULSE 83; RESP 19; O2SAT 91
[2023-12-20 09:41] VITALS: BP 144/105; PULSE 89; RESP 18; O2SAT 91
[2023-12-20 10:04] LABS: Hemoglobin 19.4 g/dL (14.1-18.0)
== END 2023-12-20 09:41 | disposition home or self-care (01) ==
LOC: INF 08:45
PROVIDERS: PCP Nurse Practitioner Family; Visit Provider Internal Medicine Medical Oncology
DX: D75.1 Secondary polycythemia (principal); J44.9 Chronic obstructive pulmonary disease, unspecified; G47.30 Sleep apnea, unspecified; F17.210 Nicotine dependence, cigarettes, uncomplicated
CPT/HCPCS: 36415; 85025; 99195

== ENCOUNTER 2024-01-17 09:08 | Outpatient (CLI) | payer BC, SELFPAY ==
[2024-01-17 09:11] VITALS: BMI 30.6
[2024-01-17 09:32] LABS: Basophils # 0.1 K/mm3 (0-0.2); Basophils % 0.9 % (0.1-2.0); Eosinophils # 0.1 K/mm3 (0.0-0.4); Eosinophils % 0.9 % (0.1-12.0); Hematocrit 55.1 % (42.0-52.0); Hemoglobin 17.1 g/dL (14.1-18.0); Lymphocytes # 1.6 K/mm3 (0.7-4.5); Lymphocytes % 12.5 % (10-50); Mean Corpuscular Volume 93.7 fl (80-94); Mean Platelet Volume 8.5 fl (7.4-10.4); Monocytes # 0.8 K/mm3 (0.1-1.0); Neutrophils # 10.3 K/mm3 (1.8-7.8); Neutrophils % 79.7 % (37.0-80.0); Platelet Count 144 K/mm3 (142-424); Red Blood Count 5.88 M/mm3 (4.60-6.20); Red Cell Distribution Width 19.5 % (11.5-17.5); White Blood Count 12.9 K/mm3 (4.8-10.8)
--- NOTE | 2024-01-17 10:13 | PC.NURSE ---
0925 CBC collected per venipuncture to L hand with butterfly needle. Patient here for possible therapeutic phlebotomy based on lab results. Patient tolerated well
--- NOTE | 2024-01-17 10:14 | PC.NURSE ---
0945 Hct 55.1. Patient does not need therapeutic phlebotomy today based on this result.
== END 2024-01-17 09:45 | disposition home or self-care (01) ==
LOC: INF 09:09
PROVIDERS: PCP Nurse Practitioner Family; Visit Provider Internal Medicine Medical Oncology
DX: D45 Polycythemia vera (principal)
CPT/HCPCS: 36415; 85025

== ENCOUNTER 2024-02-17 09:13 | Outpatient (CLI) | payer BC, SELFPAY ==
[2024-02-17 09:23] VITALS: BMI 30.6
[2024-02-17 09:31] LABS: Basophils # 0.1 K/mm3 (0-0.2); Eosinophils # 0.1 K/mm3 (0.0-0.4); Eosinophils % 1.3 % (0.1-12.0); Hemoglobin 16.8 g/dL (14.1-18.0); Lymphocytes # 1.2 K/mm3 (0.7-4.5); Mean Corpuscular HGB Conc 28.4 g/dL (31.8-35.4); Mean Corpuscular Hemoglobin 28.2 pg (27.0-31.2); Mean Corpuscular Volume 99.4 fl (80-94); Mean Platelet Volume 8.5 fl (7.4-10.4); Monocytes # 1.2 K/mm3 (0.1-1.0); Monocytes % 12.4 % (1.7-9.3); Neutrophils % 73.3 % (37.0-80.0); Platelet Count 148 K/mm3 (142-424); Red Blood Count 5.94 M/mm3 (4.60-6.20); Red Cell Distribution Width 18.9 % (11.5-17.5); White Blood Count 9.6 K/mm3 (4.8-10.8)
--- NOTE | 2024-02-17 10:37 | PC.NURSE ---
0935- H&H drawn via butterfly needle in left ac. Hct 59.0. pt does not meet criteria for phlebotomy per MD order. f/u labs scheduled for 1 month, 03/16/24. pt tolerated well.
== END 2024-02-17 09:40 | disposition home or self-care (01) ==
LOC: INF 09:13
PROVIDERS: PCP Nurse Practitioner Family; Visit Provider Internal Medicine Medical Oncology
DX: D45 Polycythemia vera (principal)
CPT/HCPCS: 36415; 85025

== ENCOUNTER 2024-03-02 10:17 | Outpatient (CLI) | payer BC, SELFPAY ==
[2024-03-02 16:11] LABS: Microscopic, Urine URINE MICROSCOPIC (MICROSCOPIC)
[2024-03-02 16:36] LABS: Appearance,Urine CLEAR (Clear); Bilirubin,Urine Negative (Negative); Blood, Urine Negative (Negative); Color,Urine YELLOW (Yellow); Glucose,Urine (UA) Negative (Negative); Ketones,Urine Negative (Negative); Leukocyte Esterase,Urine Negative (Negative); Nitrate,Urine Negative (Negative); Protein,Urine 2+ (Negative); Specific Gravity, Urine >= 1.030 (1.005-1.030); Urobilinogen,Urine 0.2 EU/dl (0.2)
[2024-03-02 16:56] LABS: Basophils # 0.2 K/mm3 (0-0.2); Basophils % 2.1 % (0.1-2.0); Eosinophils # 0.1 K/mm3 (0.0-0.4); Eosinophils % 1.3 % (0.1-12.0); Hemoglobin 17.7 g/dL (14.1-18.0); Lymphocytes # 1.3 K/mm3 (0.7-4.5); Mean Corpuscular HGB Conc 29.1 g/dL (31.8-35.4); Mean Corpuscular Hemoglobin 27.5 pg (27.0-31.2); Mean Corpuscular Volume 94.5 fl (80-94); Mean Platelet Volume 10.5 fl (7.4-10.4); Monocytes # 0.7 K/mm3 (0.1-1.0); Monocytes % 8.5 % (1.7-9.3); Neutrophils # 5.9 K/mm3 (1.8-7.8); Neutrophils % 72.1 % (37.0-80.0); Platelet Count 182 K/mm3 (142-424); Red Blood Count 6.46 M/mm3 (4.60-6.20); Red Cell Distribution Width 18.7 % (11.5-17.5); White Blood Count 8.2 K/mm3 (4.8-10.8)
[2024-03-02 17:13] LABS: Bacteria,Urine 1+ /lpf; Mucus,Urine 4+ /lpf; Squamous Epithelial Cell,Urine Occasional #/hpf (0-5); WBC,Urine Occasional #/hpf (0-3)
[2024-03-02 17:17] LABS: Alanine Aminotransferase 40 U/L (12-78); Albumin Level 3.8 g/dl (3.5-5.0); Albumin/Globulin Ratio 1.2 (1.1-1.8); Alkaline Phosphatase 98 U/L (38-126); Anion Gap 8.2 mEq/L (5-15); Aspartate Amino Transferase 65 U/L (17-59); Bilirubin,Total 0.7 mg/dl (0.2-1.3); Blood Urea Nitrogen 16 mg/dl (9-20); Calcium 8.6 mg/dl (8.4-10.2); Carbon Dioxide 36 mmol/L (22.0-30.0); Chloride 96 mmol/L (98-107); Chol/HDL Ratio 3.5 (1-3.5); Cholesterol 129 mg/dl (140-200); Estimated Glomerular Filt Rate 116 ml/min (>60); GFR (African American) 141 ML/MIN (>60); Globulin 3.2 g/dL (1.3-3.2); Glucose 100 mg/dl (74-100); HDL Cholesterol 37 mg/dl (40-60); Magnesium 1.5 mg/dl (1.6-2.3); Potassium 5.2 mmoL/L (3.5-5.1); Sodium 135 mmol/L (136-145); Triglycerides 81 mg/dl (30-150); VLDL Cholesterol 16 mg/dL (0-40)
[2024-03-02 17:35] LABS: 25-OH Vitamin D, Total 25.5 ng/mL (30-100)
[2024-03-02 17:51] LABS: Hematocrit 61.1 % (42.0-52.0)
[2024-03-02 18:43] LABS: Iron 78 ug/dL (49-181)
[2024-03-02 18:44] LABS: Prostate Specific Ag Screen 1.3 ng/ml (0.0-4.0); Vitamin B12 822 pg/mL (239-931)
[2024-03-02 18:54] LABS: Total Iron Binding Capacity 473 ug/dL (261-462)
[2024-03-02 19:02] LABS: Free T4 (Free Thyroxine) 1.09 ng/dl (0.78-2.19)
[2024-03-02 19:08] LABS: Creatinine,Urine Random 99 mg/dL (Not Estab.)
[2024-03-02 19:16] LABS: Thyroid Stimulating Hormone 1.54 uIU/mL (0.465-4.68)
[2024-03-02 19:20] LABS: Ferritin 15.2 ng/ml (17.9-464)
[2024-03-03 08:05] LABS: HIV (1&2) Antibody Rapid NONREACTIVE (NONREACTIVE)
[2024-03-04 09:57] LABS: HCV Ab Non Reactive (Non Reactive)
== END 2024-03-02 23:59 | disposition home or self-care (01) ==
LOC: LAB.DROPOF 03-03 12:37
PROVIDERS: PCP Nurse Practitioner Family; Visit Provider Nurse Practitioner Family
DX: E11.9 Type 2 diabetes mellitus without complications (principal); E78.2 Mixed hyperlipidemia; D45 Polycythemia vera; I10 Essential (primary) hypertension; E53.8 Deficiency of other specified B group vitamins; E83.42 Hypomagnesemia; E66.9 Obesity, unspecified; Z11.59 Encounter for screening for other viral diseases; Z11.4 Encounter for screening for human immunodeficiency virus [HIV]; Z12.5 Encounter for screening for malignant neoplasm of prostate; Z68.29 Body mass index [BMI] 29.0-29.9, adult
CPT/HCPCS: 80050; 80053; 80061; 81001; 82043; 82306; 82570; 82607; 82728; 83036; 83540; 83550; 83735; 84156; 84439; 84443; 85025; 86803; 87086; 87389; G0103

== ENCOUNTER 2024-03-06 09:41 | Outpatient (CLI) | payer BC, SELFPAY ==
[2024-03-06 10:00] VITALS: BP 127/99; PULSE 84; RESP 16; TEMP 36.8; O2SAT 90
[2024-03-06 10:23] VITALS: BP 113/80; PULSE 84; RESP 18; TEMP 36.8; O2SAT 91
== END 2024-03-06 10:30 | disposition home or self-care (01) ==
LOC: INF 09:42
PROVIDERS: PCP Nurse Practitioner Family; Visit Provider Internal Medicine Medical Oncology
DX: D45 Polycythemia vera (principal)
CPT/HCPCS: 99195

== ENCOUNTER 2024-04-03 08:42 | Outpatient (CLI) | payer BC, SELFPAY ==
[2024-04-03 08:50] VITALS: BMI 30.6
--- NOTE | 2024-04-03 08:56 | PC.NURSE ---
0952 Patient here for possible therapeutic phlebotomy. CBC collected via venipuncture to R AC with butterfly needle x1 stick.
[2024-04-03 09:05] LABS: Basophils # 0.2 K/mm3 (0-0.2); Basophils % 1.8 % (0.1-2.0); Eosinophils # 0.2 K/mm3 (0.0-0.4); Lymphocytes # 1.5 K/mm3 (0.7-4.5); Lymphocytes % 14.4 % (10-50); Mean Corpuscular HGB Conc 31.5 g/dL (31.8-35.4); Mean Corpuscular Hemoglobin 29.2 pg (27.0-31.2); Mean Corpuscular Volume 92.7 fl (80-94); Mean Platelet Volume 8.3 fl (7.4-10.4); Monocytes # 0.8 K/mm3 (0.1-1.0); Monocytes % 7.7 % (1.7-9.3); Neutrophils # 7.8 K/mm3 (1.8-7.8); Neutrophils % 74.1 % (37.0-80.0); Platelet Count 110 K/mm3 (142-424); Red Blood Count 6.27 M/mm3 (4.60-6.20); Red Cell Distribution Width 18.6 % (11.5-17.5); White Blood Count 10.6 K/mm3 (4.8-10.8)
[2024-04-03 09:21] LABS: Hematocrit 58.1 % (42.0-52.0); Hemoglobin 18.3 g/dL (14.1-18.0)
== END 2024-04-03 09:33 | disposition home or self-care (01) ==
LOC: INF 08:43
PROVIDERS: PCP Nurse Practitioner Family; Visit Provider Internal Medicine Medical Oncology
DX: D45 Polycythemia vera (principal)
CPT/HCPCS: 36415; 85025

== ENCOUNTER 2024-05-05 13:07 | Outpatient (CLI) | payer BC, SELFPAY ==
--- NOTE | 2024-05-05 13:07 | CT_ITS ---
FINAL REPORT TECHNIQUE: Thin section axial images were obtained from the lung apices to the upper abdomen by computed tomography. Reformatted images were obtained and reviewed. This study was performed with techniques to keep radiation doses al low as reasonably achievable (ALARA). Individualized dose reduction techniques using automated exposure control or adjustment of mA and/or kV according to the patient's size were employed. CLINICAL HISTORY: smoker 43 years, 1 ppd COMPARISON: CTA chest 04/09/2023 FINDINGS: CHEST CT LOW DOSE CTDI vol (mGy): 2.90 DLP (mGy-cm): 105.25 There is no axillary adenopathy. There is no mediastinal or hilar mass or adenopathy. The heart is normal in size. There are severe coronary artery calcifications. There is no pericardial or pleural effusion. There is mild emphysema and mild pulmonary scarring. Lung window images demonstrate no suspicious infiltrate or nodule. A calcified granuloma is noted in the left lung. Limited images of the upper abdomen are unremarkable. IMPRESSION: Lung-RADS category 1S. Recommend 12 month follow up low dose chest CT. Modifier S: Severe coronary artery calcifications. Reviewed, Interpreted and Dictated by Cody Ge III, MD Transcribed by Meliza Morales Authenticated and [facility]
== END 2024-05-05 23:59 | disposition home or self-care (01) ==
LOC: RAD 13:07
PROVIDERS: PCP Nurse Practitioner Family; Visit Provider Internal Medicine Pulmonary Disease
DX: F17.210 Nicotine dependence, cigarettes, uncomplicated (principal)
CPT/HCPCS: 71271

== ENCOUNTER 2024-06-02 11:51 | Outpatient (CLI) | payer BC, SELFPAY ==
[2024-06-02 11:55] VITALS: BMI 30.6
--- NOTE | 2024-06-02 12:00 | PC.NURSE ---
1200-COLLECTED LABS VIA VENIPUNCTURE STICK IN LEFT AC WITH BUTTERFLY NEEDLE;PT TO HAVE THERAPEUTIC PHLEBOTOMY IF HCT >60
[2024-06-02 12:10] LABS: Basophils # 0.3 K/mm3 (0-0.2); Basophils % 3.2 % (0.1-2.0); Eosinophils # 0.1 K/mm3 (0.0-0.4); Eosinophils % 1.3 % (0.1-12.0); Hematocrit 57.4 % (42.0-52.0); Hemoglobin 17.8 g/dL (14.1-18.0); Lymphocytes # 1.4 K/mm3 (0.7-4.5); Lymphocytes % 15.6 % (10-50); Mean Corpuscular HGB Conc 30.9 g/dL (31.8-35.4); Mean Corpuscular Hemoglobin 30.6 pg (27.0-31.2); Mean Corpuscular Volume 99.1 fl (80-94); Mean Platelet Volume 8.4 fl (7.4-10.4); Monocytes # 0.7 K/mm3 (0.1-1.0); Monocytes % 7.9 % (1.7-9.3); Neutrophils # 6.5 K/mm3 (1.8-7.8); Platelet Count 141 K/mm3 (142-424); Red Blood Count 5.79 M/mm3 (4.60-6.20); Red Cell Distribution Width 18.1 % (11.5-17.5)
== END 2024-06-02 12:20 | disposition home or self-care (01) ==
LOC: INF 11:52
PROVIDERS: PCP Nurse Practitioner Family; Visit Provider Internal Medicine Medical Oncology
DX: D45 Polycythemia vera (principal)
CPT/HCPCS: 36415; 85025

== ENCOUNTER 2024-06-26 12:55 | Inpatient (IN) | payer BC, SELFPAY ==
[2024-06-26] VITALS (20 sets, daily range): BP systolic 120–171; BP diastolic 69–98; PULSE 70–105; RESP 13–26; TEMP 37–37.5; O2SAT 40–96; BMI 29.0
--- NOTE | 2024-06-26 12:59 | ECG_ITS ---
APPROVED REPORT Exam: Resting ECG HR:107 bpm ECG Measurements Heart Rate 107 AXES QRSd 86 QRS 20 QT 303 T -79 QTc 366 Conclusion Nondiagnostic exam Electronically signed by : KINGSTON LENNON, 06/26/2024 20:47:06
--- NOTE | 2024-06-26 13:03 | PC.NURSE ---
pt brought back emergently via wheelchair d/t SOA and dyspnea. His initial room air sat is 42%. Pt placed on O2 and titrated up to 6lpm NC. RT called for an ABG.
[2024-06-26] MEDS: IPRATROPIUM/ALBUTEROL 3 ML NEB IH (13:08)
--- NOTE | 2024-06-26 13:09 | XR_ITS ---
FINAL REPORT TECHNIQUE: Single view chest CLINICAL HISTORY: sob cough COMPARISON: 04/21/2023 FINDINGS: A single view of the chest was obtained. The heart is mildly enlarged. Chronic changes are seen at the lung bases. There is a calcified granuloma in the left upper lobe. Lungs are otherwise clear. There is no pneumothorax. IMPRESSION: No acute cardiopulmonary process. Reviewed, Interpreted and Dictated by Ryan Moya MD Transcribed by Dena Ashford Authenticated and [facility]
--- NOTE | 2024-06-26 13:13 | ED_ITS ---
Discharge Plan Disposition Patient Disposition: Admitted Clinical Impressions Clinical Impression: Acute respiratory failure with hypoxia, Acute exacerbation of chronic obstructive pulmonary disease (COPD) Discharge ED Provider: Saqib Gilliland HPI <Hugo Benítez MD - Last Filed: 06/26/24 15:42> General Chief Complaint: Shortness of Breath/Dyspnea Stated Complaint: SOA Time Seen by Provider: 06/26/24 13:07 History of Present Illness HPI narrative: Patient is a 59-year-old male with past medical history of emphysema, COPD on home oxygen at night 2 L nasal cannula, hyperlipidemia, sleep apnea, eczema, [id number] diabetes who presents emergency department for evaluation of shortness of breath and cough. Onset was acute, over the last 48 hours. He is gotten progressively short of breath with associated cough causing her to present here for continued evaluation. No chest pain. No other acute complaints at this time. Related Data Home Medications ?Medication ?Instructions ?Recorded ?Confirmed aspirin 325 mg tablet 325 mg PO DAILY 04/09/23 06/26/24 albuterol sulfate 90 mcg/actuation 2 puff inhalation QIDP PRN 06/26/24 06/26/24 aerosol inhaler Shortness Of Breath ipratropium 0.5 mg-albuterol 3 mg 3 ml inhalation QIDP PRN Shortness 06/26/24 06/26/24 (2.5 mg base)/3 mL nebulization Of Breath soln lisinopril 40 mg tablet 40 mg PO DAILY 06/26/24 06/26/24 Previous Rx's ?Medication ?Instructions ?Recorded blood-glucose meter (Blood Glucose #1 ea 01/15/23 Monitoring kit) blood sugar diagnostic (Blood #50 ea 01/19/23 Glucose Test strips) clopidogrel 75 mg tablet (Plavix) 75 mg PO DAILY #90 tabs 06/24/23 furosemide 40 mg tablet (Lasix) 40 mg PO DAILY #30 tabs 07/01/23 amlodipine 5 mg tablet 5 mg PO DAILY #90 tabs 08/11/23 carvedilol 25 mg tablet 25 mg PO BID #90 tabs 12/20/23 cholecalciferol (vitamin D3) 50 50 mcg PO DAILY #90 caps 03/03/24 mcg (2,000 unit) capsule dapagliflozin propanediol 10 mg 10 mg PO DAILY #90 tabs 03/03/24 tablet (Farxiga) magnesium oxide 400 mg PO DAILY #90 tabs 03/03/24 umeclidinium 62.5 mcg-vilanterol 1 inh inhalation DAILY 90 days 05/01/24 25 mcg/actuation powdr for #180 ea inhalation (Anoro Ellipta) atorvastatin 40 mg tablet (Lipitor) 40 mg PO DAILY #30 tabs 05/24/24 Allergies Allergy/AdvReac Type Severity Reaction Status Date / Time acetaminophen (From Tylenol) Allergy Intermediate Rash Verified 05/24/24 09:25 [facility] <Hugo Benítez MD - Last Filed: 06/26/24 15:42> [facility] Disclaimer: The information contained in this section may have been updated after the patient was seen, as this information can be updated by other users. Medical History Hoarseness Encounter for screening for malignant neoplasm of lung Dyspnea on exertion Pulmonary emphysema Smoking greater than 30 pack years Weakness COPD (chronic obstructive pulmonary disease) On mechanically assisted ventilation Thickening of wall of gallbladder Pneumonia Acute respiratory failure with hypoxia and hypercarbia Non-ST elevation NE (NSTEMI) Acute dehydration SAUD (acute kidney injury) Ataxia Nausea & vomiting Diabetes mellitus Smoker Polycythemia vera Witnessed episode of apnea Obstructive sleep apnea syndrome CAD (coronary atherosclerotic disease) Recent stent procedure Polycythemia vera Abnormal echocardiogram Cellulitis Dyspnea Sinus tachycardia Edema of both lower extremities GERD (gastroesophageal reflux disease) Dry skin dermatitis Arthritis HLD (hyperlipidemia) Nonspecific abdominal pain Obesity Tobacco abuse COPD (chronic obstructive pulmonary disease) HTN (hypertension) Surgical History History of heart artery stent Hx of tonsillectomy Family History Other Cancer Diabetes Heart attack Hyperlipidemia Hypertension Social History Smoking Status: Current every day smoker tobacco type: cigarettes packs per day: 1 smoking status stop date: 03/2023 alcohol intake: current alcohol intake frequency: a few times a month substance use type: denies use current occupational status: employed Travel in the last 8 weeks: None Have you lived/traveled outside [place] in past 30 days?: No Contact w/someone who lives/traveled outside [place] past 30 days?: No Exposure to someone with infectious disease in past 14 days?: No Do you have a fever (greater than 100.4 F or 38 C)?: No Have you tested positive for COVID-19: No Exposed to someone with COVID-19 in past 14 days?: No Do you have a sore throat?: No Do you have a cough?: No Do you have any weakness?: No Do you have any diarrhea?: No Are you experiencing any unusual bleeding?: No Do you have any muscle aches/pain?: No Do you have any abdominal pain?: No Are you experiencing loss of taste or smell?: No Other Medical History Have you received the Flu Vaccine for this season: No Have you received the Pneumonia Vaccine: No <Hugo Benítez MD - Last Filed: 06/26/24 15:42> ROS Obtained: Yes Systems reviewed as appropriate & no additional complaints except as documented Physical Exam <Hugo Benítez MD - Last Filed: 06/26/24 15:42> General General appearance: alert Head Head exam: atraumatic and normocephalic Eye Eye exam: Present PERRL ENT ENT exam: Present mucous membranes moist Neck Neck exam: Present normal inspection Chest Chest inspection: Present normal inspection and symmetric chest wall rise Respiratory Respiratory exam: Present respiratory distress, wheezes, accessory muscle use and prolonged expiratory phase; Absent normal lung sounds bilaterally (Significantly decreased air movement throughout) Cardiovascular Cardiovascular exam: Present regular rate and normal rhythm Abdominal Exam Abdominal exam: Present soft; Absent tenderness Extremities Exam Extremities exam: Present normal inspection Neurological Exam Neurological exam: Present alert Psychiatric Psychiatric exam: Present normal affect Skin Skin exam: Present warm, dry and other (Diffuse hyperkeratosis) HEART Score <Hugo Benítez MD - Last Filed: 06/26/24 15:42> HEART Score HEART Score assessment performed?: Yes History (anamnesis): Slightly suspicious ECG: Non-specific disturbance Age: 45-65 years Risk factors: Atherosclerosis history Troponin: </= normal limit HEART Score: 4 <Saqib Gilliland MD - Last Filed: 06/26/24 16:18> HEART Score HEART Score: 4 Procedures <Saqib Gilliland MD - Last Filed: 06/26/24 16:18> Limited Ultrasound Indication:: Limited cardiac ultrasound Indication: Shortness of breath, elevated BNP Identified cardiac views: -Cardiac parasternal long axis -Cardiac parasternal short axis -Cardiac apical four-chamber Findings: -Cardiac activity present -Gross wall motion normal -Pericardial effusion absent -Right heart strain absent -Right heart to left heart ratio grossly less than 1 Impression: -Normal 3 view cardiac ultrasound Images were saved to permanent archive The study was technically adequate CPT: 82823 This study was performed by me, and I personally interpreted all images/videos. Based on my clinical judgement, these images were adequate and did not necessitate further imaging Critical Care <Hugo Benítez MD - Last Filed: 06/26/24 15:42> Critical Care Time Critical Care Time: Yes Attestation: On 06/26/24, the high probability of a clinically significant, sudden or life threatening deterioration of the following system(s) required my full and direct attention, intervention and personal management. The time I documented below is in addition to time spent performing reported procedures but includes the following listed in this critical care notation. Total Time Total Critical Care Time: 40 Medical Decision Making <Hugo Benítez MD - Last Filed: 06/26/24 15:42> Yrn Inquiry Pt receiving controlled substance: No Vital Signs Vital Signs: 06/26/24 13:12 06/26/24 13:16 06/26/24 13:30 Temperature 98.6 F Temperature Source Oral Pulse Rate 102 H 99 H Pulse Rate [Right Radial] 88 Respiratory Rate 22 16 13 Blood Pressure 155/95 H 148/89 H Blood Pressure [Right Arm] 148/82 H Blood Pressure Mean [Right Arm] 104 Blood Pressure Source 02 Sat by Pulse Oximetry 40 L 96 96 Oxygen Delivery Method Room Air Nasal Cannula Nasal Cannula Oxygen Flow Rate (LPM) 6 6 06/26/24 14:00 06/26/24 14:30 06/26/24 15:00 Temperature Temperature Source Pulse Rate 81 94 H Pulse Rate [Right Radial] Respiratory Rate 20 13 25 H Blood Pressure 160/98 H 154/86 H 146/93 H Blood Pressure [Right Arm] Blood Pressure Mean [Right Arm] Blood Pressure Source 02 Sat by Pulse Oximetry 88 L 91 L 94 L Oxygen Delivery Method Nasal Cannula Nasal Cannula Nasal Cannula Oxygen Flow Rate (LPM) 6 6 6 06/26/24 15:30 06/26/24 15:34 06/26/24 16:00 Temperature 98.6 F Temperature Source Oral Pulse Rate 100 H 99 H 96 H Pulse Rate [Right Radial] Respiratory Rate 26 H 26 H 23 Blood Pressure 157/91 H 137/91 H 146/90 H Blood Pressure [Right Arm] Blood Pressure Mean [Right Arm] Blood Pressure Source Automatic Cuff 02 Sat by Pulse Oximetry 93 L 93 L Oxygen Delivery Method Nasal Cannula Nasal Cannula Aerosol Mask Nasal Cannula Oxygen Flow Rate (LPM) 6 6 6 Lab Data Labs: Lab Results 06/26/24 13:01: Specimen Source Right radial, O2 % 6 lpm nc, ABG pH 7.39, ABG pCO2 69.3 H, ABG pO2 59.6 L, ABG HCO3 41.2 H, ABG Total CO2 43.3 H, ABG O2 Saturation 93, ABG Base Excess 12.0 H, Ben Test Y 06/26/24 13:02: WBC 8.6, RBC 6.07, Hgb 17.9, Hct 59.8 H, MCV 98.5 H, MCH 29.5, M CHC 29.9 L, RDW 16.4, Plt Count 124 L, MPV 11.0 H, Neut % (Auto) 74.7, Lymph % (Auto) 11.9, Cameron % (Auto) 12.1 H, Eos % (Auto) 0.1, Baso % (Auto) 0.6, Neut # (Auto) 6.4, Lymph # (Auto) 1.0, Cameron # (Auto) 1.0, Eos # (Auto) 0.0, Baso # (Auto) 0.1, D-Dimer 0.85 H, Sodium 136, Potassium 4.4, Chloride 82 L, Carbon Dioxide 44 H*, Anion Gap 14.4, BUN 14, Creatinine 0.70, Estimated Creat Clear 158, Estimated GFR 116, Est GFR ( Amer) 140, Glucose 146 H, Calcium 8.8, Total Bilirubin 1.6 H, AST 33, ALT 22, Alkaline Phosphatase 140 H, Troponin I < 0.01, NT-Pro-B Natriuret Pep 1160 H, Total Protein 7.5, Albumin 4.0, Globulin 3.5 H, Albumin/Globulin Ratio 1.1 06/26/24 13:10: ABG Lactate 2.0 06/26/24 13:02 06/26/24 13:02 Response Orders (Tests/Meds): ED MEDICATIONS Generic Name Dose Route Start Last Admin Trade Name Antonio PRN Reason Stop Dose Admin Acetaminophen 650 mg 06/26/24 15:59 Acetaminophen 325mg Tab PO 07/26/24 15:58 Q4HP PRN Fever or Mild Pain (1-3) Budesonide 0.5 mg 06/26/24 18:00 Budesonide 0.5mg/2ml [facility] 07/26/24 17:59 BIDRT ELISA Enoxaparin Sodium 40 mg 06/27/24 09:00 Enoxaparin 40mg/0.4ml Syringe SUBCUT 07/27/24 08:59 DAILY ELISA Insulin Human Lispro 0 unit 06/26/24 16:30 Humalog 100 Units/Ml 10ml Vial ([facility]) SUBCUT 07/26/24 16:29 ACHS ELISA Protocol Ipratropium [place] 0.5 mg 06/26/24 18:00 Ipratropium [place] 0.5 Mg/2.5ml Solution 07/26/24 17:59 Q6RT ELISA Levalbuterol HCl 1.25 mg 06/26/24 18:00 Levalbuterol 1.25mg/3ml [facility] 07/26/24 17:59 Q6RT [facility] Ondansetron HCl 4 mg 06/26/24 15:59 Ondansetron 4mg/2ml Vial IV 07/26/24 15:58 Q8HP PRN Nausea Discontinued Medications Generic Name Dose Route Start Last Admin Trade Name Antonio PRN Reason Stop Dose Admin Albuterol Sulfate 20 mg 06/26/24 14:48 06/26/24 15:00 Albuterol 0.083% 2.5 Mg/3 Ml [facility] 06/26/24 14:49 20 mg ONCE ONE Administration Albuterol/Ipratropium 3 ml 06/26/24 12:58 06/26/24 13:08 Ipratropium/Albuterol 3 Ml [facility] 06/26/24 12:59 3 ml ONCE ONE Administration Albuterol/Ipratropium 9 ml 06/26/24 13:09 06/26/24 15:45 Ipratropium/Albuterol 3 Ml [facility] 06/26/24 13:10 Not Given ONCE ONE Magnesium Sulfate 2 gm in 50 mls @ 50 mls/hr 06/26/24 13:09 06/26/24 13:21 Magnesium Sulfate 2gm/50ml Premix IV 06/26/24 14:08 50 mls/hr ONCE ONE Administration Azithromycin 500 mg/ Sodium 250 mls @ 250 mls/hr 06/26/24 13:11 06/26/24 14:23 Chloride IV 06/26/24 13:12 250 mls/hr ONCE ONE Administration Ceftriaxone Sodium 1 gm/ 50 mls @ 100 mls/hr 06/26/24 14:48 06/26/24 15:21 Sodium Chloride IV 06/26/24 15:17 100 mls/hr ONCE ONE Administration Methylprednisolone Sodium Succinate 125 mg 06/26/24 13:09 06/26/24 13:21 Methylprednisolone Sod Succ 125mg Vial IV 06/26/24 13:10 125 mg ONCE ONE Administration ORDERS Category Date Time Status CXR --portable [XR chest portable] Stat Exams 06/26/24 13:09 Completed POCUS Point of Care (ER Only) Stat Exams 06/26/24 14:56 Completed BNP [NT Pro Brain Natriuretic Pep.] Stat Lab 06/26/24 13:02 Completed CBC w/Auto Diff [Complete Blood Count Auto Diff] Stat Lab 06/26/24 13:02 Completed CMP [Comprehensive Metabolic Panel] Stat Lab 06/26/24 13:02 Completed D-Dimer Stat Lab 06/26/24 13:02 Completed Trop I [Troponin I] Stat Lab 06/26/24 13:02 Completed Troponin I Q3H Lab 06/26/24 16:15 Ordered Troponin I Q3H Lab 06/26/24 19:15 Ordered ABG [Arterial Blood Gas] Stat RT 06/26/24 13:01 Completed Lactate Arterial Routine RT 06/26/24 13:10 Completed ECG Data Tracing #1: ECG Narrative: Independently interpreted by me rate is 96, rhythm is regular, axis is normal, no ST elevation in anatomical contiguous leads, QTc 388. MDM Narrative Medical Decision Narrative: In summary patient is a 59-year-old male past medical history described above who presents emergency department for evaluation of shortness of breath and cough. Patient is hemodynamically stable however required 6 L nasal cannula to maintain saturations greater than 90% upon arrival. Afebrile. Patient has a chronic hyperkeratotic rash which has been present for decades and will not need to be worked up today. With regards to his shortness of breath differential diagnosis includes viral induced COPD exacerbation, pneumonia, atypical ACS, CHF, among others. Workup will be conducted with hematologic labs, chest x-ray, EKG, ABG, troponin. Initial inventions include DuoNebs x 3, IV magnesium sulfate, azithromycin, methylprednisolone. ABG reviewed by me at bedside, patient has hypercarbia however he is compensated from a pH standpoint so I suggest this is chronic he does have hypoxia which is lining up with his nasal cannula requirement. Prolong decision-making discussion was had at bedside patient wishes to have full respiratory support up to and including intubation if needed. He does not needed at this time. Recent pulmonology note from 05-01-2024 reviewed, patient was switched his chronic inhalers in April for which she has been intermittently compliant. Initial workup reviewed by me, no significant leukocytosis, there is elevated BNP with unknown baseline, is difficult to assess whether he is significantly volume overloaded or not given his chronic rash. Bony embolism is excluded per years criteria, acid-base status ABG is compensated with chronic hypercarbia, no significant leukocytosis. However given the degree of hypoxia upon repeat evaluation he has some improvement but still significant respiratory distress will be broadened with ceftriaxone. Continuous albuterol be initiated. Case discussed with hospital medicine regarding management they will admit the patient their service for continued evaluation at this time. Dr. Gilliland was going to perform a [id number] ultrasound to see if diuretics are going to be advantageous prior to patient transfer to the floor this was pending at time of transfer of care to Dr. Gilliland. <Saqib Gilliland MD - Last Filed: 06/26/24 16:18> Vital Signs Vital Signs: 06/26/24 13:12 06/26/24 13:16 06/26/24 13:30 Temperature 98.6 F Temperature Source Oral Pulse Rate 102 H 99 H Pulse Rate [Right Radial] 88 Respiratory Rate 22 16 13 Blood Pressure 155/95 H 148/89 H Blood Pressure [Right Arm] 148/82 H Blood Pressure Mean [Right Arm] 104 Blood Pressure Source 02 Sat by Pulse Oximetry 40 L 96 96 Oxygen Delivery Method Room Air Nasal Cannula Nasal Cannula Oxygen Flow Rate (LPM) 6 6 06/26/24 14:00 06/26/24 14:30 06/26/24 15:00 Temperature Temperature Source Pulse Rate 81 94 H Pulse Rate [Right Radial] Respiratory Rate 20 13 25 H Blood Pressure 160/98 H 154/86 H 146/93 H Blood Pressure [Right Arm] Blood Pressure Mean [Right Arm] Blood Pressure Source 02 Sat by Pulse Oximetry 88 L 91 L 94 L Oxygen Delivery Method Nasal Cannula Nasal Cannula Nasal Cannula Oxygen Flow Rate (LPM) 6 6 6 06/26/24 15:30 06/26/24 15:34 06/26/24 16:00 Temperature 98.6 F Temperature Source Oral Pulse Rate 100 H 99 H 96 H Pulse Rate [Right Radial] Respiratory Rate 26 H 26 H 23 Blood Pressure 157/91 H 137/91 H 146/90 H Blood Pressure [Right Arm] Blood Pressure Mean [Right Arm] Blood Pressure Source Automatic Cuff 02 Sat by Pulse Oximetry 93 L 93 L Oxygen Delivery Method Nasal Cannula Nasal Cannula Aerosol Mask Nasal Cannula Oxygen Flow Rate (LPM) 6 6 6 Lab Data Labs: Lab Results 06/26/24 13:01: Specimen Source Right radial, O2 % 6 lpm nc, ABG pH 7.39, ABG pCO2 69.3 H, ABG pO2 59.6 L, ABG HCO3 41.2 H, ABG Total CO2 43.3 H, ABG O2 Saturation 93, ABG Base Excess 12.0 H, Ben Test Y 06/26/24 13:02: WBC 8.6, RBC 6.07, Hgb 17.9, Hct 59.8 H, MCV 98.5 H, MCH 29.5, M CHC 29.9 L, RDW 16.4, Plt Count 124 L, MPV 11.0 H, Neut % (Auto) 74.7, Lymph % (Auto) 11.9, Cameron % (Auto) 12.1 H, Eos % (Auto) 0.1, Baso % (Auto) 0.6, Neut # (Auto) 6.4, Lymph # (Auto) 1.0, Cameron # (Auto) 1.0, Eos # (Auto) 0.0, Baso # (Auto) 0.1, D-Dimer 0.85 H, Sodium 136, Potassium 4.4, Chloride 82 L, Carbon Dioxide 44 H*, Anion Gap 14.4, BUN 14, Creatinine 0.70, Estimated Creat Clear 158, Estimated GFR 116, Est GFR ( Amer) 140, Glucose 146 H, Calcium 8.8, Total Bilirubin 1.6 H, AST 33, ALT 22, Alkaline Phosphatase 140 H, Troponin I < 0.01, NT-Pro-B Natriuret Pep 1160 H, Total Protein 7.5, Albumin 4.0, Globulin 3.5 H, Albumin/Globulin Ratio 1.1 06/26/24 13:10: ABG Lactate 2.0 Response Orders (Tests/Meds): ED MEDICATIONS Generic Name Dose Route Start Last Admin Trade Name Freq PRN Reason Stop Dose Admin Acetaminophen 650 mg 06/26/24 15:59 Acetaminophen 325mg Tab PO 07/26/24 15:58 Q4HP PRN Fever or Mild Pain (1-3) Budesonide 0.5 mg 06/26/24 18:00 Budesonide 0.5mg/2ml [facility] 07/26/24 17:59 BIDRT [facility] Enoxaparin Sodium 40 mg 06/27/24 09:00 Enoxaparin 40mg/0.4ml Syringe SUBCUT 07/27/24 08:59 DAILY [facility] Insulin Human Lispro 0 unit 06/26/24 16:30 Humalog 100 Units/Ml 10ml Vial ([facility]) SUBCUT 07/26/24 16:29 ACHS [facility] Protocol Ipratropium [place] 0.5 mg 06/26/24 18:00 Ipratropium [place] 0.5 Mg/2.5ml Solution 07/26/24 17:59 Q6RT [facility] Levalbuterol HCl 1.25 mg 06/26/24 18:00 Levalbuterol 1.25mg/3ml [facility] 07/26/24 17:59 Q6RT [facility] Ondansetron HCl 4 mg 06/26/24 15:59 Ondansetron 4mg/2ml Vial IV 07/26/24 15:58 Q8HP PRN Nausea Discontinued Medications Generic Name Dose Route Start Last Admin Trade Name Freq PRN Reason Stop Dose Admin Albuterol Sulfate 20 mg 06/26/24 14:48 06/26/24 15:00 Albuterol 0.083% 2.5 Mg/3 Ml [facility] 06/26/24 14:49 20 mg ONCE ONE Administration Albuterol/Ipratropium 3 ml 06/26/24 12:58 06/26/24 13:08 Ipratropium/Albuterol 3 Ml [facility] 06/26/24 12:59 3 ml ONCE ONE Administration Albuterol/Ipratropium 9 ml 06/26/24 13:09 06/26/24 15:45 Ipratropium/Albuterol 3 Ml Neb 06/26/24 13:10 Not Given ONCE ONE Magnesium Sulfate 2 gm in 50 mls @ 50 mls/hr 06/26/24 13:09 06/26/24 13:21 Magnesium Sulfate 2gm/50ml Premix IV 06/26/24 14:08 50 mls/hr ONCE ONE Administration Azithromycin 500 mg/ Sodium 250 mls @ 250 mls/hr 06/26/24 13:11 06/26/24 14:23 Chloride IV 06/26/24 13:12 250 mls/hr ONCE ONE Administration Ceftriaxone Sodium 1 gm/ 50 mls @ 100 mls/hr 06/26/24 14:48 06/26/24 15:21 Sodium Chloride IV 06/26/24 15:17 100 mls/hr ONCE ONE Administration Methylprednisolone Sodium Succinate 125 mg 06/26/24 13:09 06/26/24 13:21 Methylprednisolone Sod Succ 125mg Vial IV 06/26/24 13:10 125 mg ONCE ONE Administration ORDERS Category Date Time Status CXR --portable [XR chest portable] Stat Exams 06/26/24 13:09 Completed POCUS Point of Care (ER Only) Stat Exams 06/26/24 14:56 Completed BNP [NT Pro Brain Natriuretic Pep.] Stat Lab 06/26/24 13:02 Completed CBC w/Auto Diff [Complete Blood Count Auto Diff] Stat Lab 06/26/24 13:02 Completed CMP [Comprehensive Metabolic Panel] Stat Lab 06/26/24 13:02 Completed D-Dimer Stat Lab 06/26/24 13:02 Completed Trop I [Troponin I] Stat Lab 06/26/24 13:02 Completed Troponin I Q3H Lab 06/26/24 16:15 Ordered Troponin I Q3H Lab 06/26/24 19:15 Ordered ABG [Arterial Blood Gas] Stat RT 06/26/24 13:01 Completed Lactate Arterial Routine RT 06/26/24 13:10 Completed MDM Narrative Medical Decision Narrative: In summary patient is a 59-year-old male past medical history described above who presents emergency department for evaluation of shortness of breath and cough. Patient is hemodynamically stable however required 6 L nasal cannula to maintain saturations greater than 90% upon arrival. Afebrile. Patient has a chronic hyperkeratotic rash which has been present for decades and will not need to be worked up today. With regards to his shortness of breath differential diagnosis includes viral induced COPD exacerbation, pneumonia, atypical ACS, CHF, among others. Workup will be conducted with hematologic labs, chest x-ray, EKG, ABG, troponin. Initial inventions include DuoNebs x 3, IV magnesium sulfate, azithromycin, methylprednisolone. ABG reviewed by me at bedside, patient has hypercarbia however he is compensated from a pH standpoint so I suggest this is chronic he does have hypoxia which is lining up with his nasal cannula requirement. Prolong decision-making discussion was had at bedside patient wishes to have full respiratory support up to and including intubation if needed. He does not needed at this time. Recent pulmonology note from 05-01-2024 reviewed, patient was switched his chronic inhalers in April for which she has been intermittently compliant. Initial workup reviewed by me, no significant leukocytosis, there is elevated BNP with unknown baseline, is difficult to assess whether he is significantly volume overloaded or not given his chronic rash. Bony embolism is excluded per years criteria, acid-base status ABG is compensated with chronic hypercarbia, no significant leukocytosis. However given the degree of hypoxia upon repeat evaluation he has some improvement but still significant respiratory distress will be broadened with ceftriaxone. Continuous albuterol be initiated. Case discussed with hospital medicine regarding management they will admit the patient their service for continued evaluation at this time. Dr. Gilliland was going to perform a [id number] ultrasound to see if diuretics are going to be advantageous prior to patient transfer to the floor this was pending at time of transfer of care to Dr. Gilliland. Darshana: I assumed primary responsibility for this patient after signout from previous physician. On my evaluation, patient speaking in full sentences he says that he actually feels a lot better after continuous albuterol nebulizer. Labs consistent with COPD exacerbation. Troponin negative, BNP newly elevated around 1100. Patient has no evidence of pleural effusions, pulmonary edema, or fluid overload on chest x-ray. On bedside [id number] ultrasound, no evidence of right heart strain. Difficult windows given patient's dry, scaly skin obstructing ultrasound gel and views. Apical four-chamber with right to left heart ratio grossly less than 1. Patient be given fluids for his symptoms as well. Because patient high risk for clinical decompensation, deemed appropriate for inpatient admission. Results were relayed to patient who voiced understanding and patient was agreeable to inpatient admission and management. Patient was admitted to the hospital for further definitive management.
[2024-06-26 13:16] LABS: ABG PH 7.39 mmol/L (7.35-7.45)
[2024-06-26 13:17] LABS: Basophils # 0.1 K/mm3 (0-0.2); Basophils % 0.6 % (0.1-2.0); Eosinophils % 0.1 % (0.1-12.0); Hematocrit 59.8 % (42.0-52.0); Hemoglobin 17.9 g/dL (14.1-18.0); Lymphocytes % 11.9 % (10-50); Mean Corpuscular HGB Conc 29.9 g/dL (31.8-35.4); Mean Corpuscular Hemoglobin 29.5 pg (27.0-31.2); Mean Corpuscular Volume 98.5 fl (80-94); Monocytes % 12.1 % (1.7-9.3); Neutrophils # 6.4 K/mm3 (1.8-7.8); Neutrophils % 74.7 % (37.0-80.0); Platelet Count 124 K/mm3 (142-424); Red Blood Count 6.07 M/mm3 (4.60-6.20); Red Cell Distribution Width 16.4 % (11.5-17.5); White Blood Count 8.6 K/mm3 (4.8-10.8)
[2024-06-26 13:17] LABS: ABG PCO2 69.3 mmhg (35.0-45.0); ABG PO2 59.6 mmhg (80-100)
[2024-06-26 13:18] LABS: ABG HCO3 41.2 mmhg (22.0-26.0); ABG Oxygen Saturation 93 % (90-100); ABG TCO2 43.3 mmhg (23-27); Allen's Test Y; Oxygen 6 LPM NC %; Source Right Radial
[2024-06-26] MEDS: METHYLPREDNISOLONE SOD SUCC 125MG VIAL 125 MG IV (13:21)
[2024-06-26] MEDS: MAGNESIUM SULFATE IN WATER 2 GM/50 ML PIGGYBACK IV (13:21)
[2024-06-26 13:25] LABS: Chloride 82 mmol/L (98-107); Potassium 4.4 mmoL/L (3.5-5.1); Sodium 136 mmol/L (136-145)
[2024-06-26 13:28] LABS: Alanine Aminotransferase 22 U/L (12-78); Albumin/Globulin Ratio 1.1 (1.1-1.8); Alkaline Phosphatase 140 U/L (38-126); Aspartate Amino Transferase 33 U/L (17-59); Bilirubin,Total 1.6 mg/dl (0.2-1.3); Blood Urea Nitrogen 14 mg/dl (9-20); Creatinine Clearance Estimated 158 mL/min (50-200); Estimated Glomerular Filt Rate 116 ml/min (>60); GFR (African American) 140 ML/MIN (>60); Globulin 3.5 g/dL (1.3-3.2); Total Protein,Serum 7.5 g/dl (6.3-8.2)
[2024-06-26 13:29] LABS: Calcium 8.8 mg/dl (8.4-10.2); Glucose 146 mg/dl (74-100)
[2024-06-26 13:32] LABS: D-Dimer 0.85 ug/mL (0.0-0.5)
[2024-06-26 13:37] LABS: Anion Gap 14.4 mEq/L (5-15); Carbon Dioxide 44 mmol/L (22.0-30.0)
[2024-06-26 13:38] LABS: NT Pro Brain Natriuretic Pep. 1160 pg/mL (0-125)
[2024-06-26 13:41] LABS: Troponin I < 0.01 ng/ml (0.00-0.034)
[2024-06-26] MEDS: AZITHROMYCIN 500 MG in 0.9 % SODIUM CHLORIDE 250 ML 250 MG IV (14:23)
--- NOTE | 2024-06-26 14:58 | ECG_ITS ---
APPROVED REPORT Exam: Resting ECG HR:96 bpm ECG Measurements Heart Rate [address] 159 P 132 QRSd 87 QRS -6 QT 334 T -52 QTc 388 Conclusion SINUS RHYTHM POSSIBLE LEFT ATRIAL ENLARGEMENT [-0.1mV P-WAVE IN V1/V2] BORDERLINE ECG UNCONFIRMED REPORT Electronically signed by : MONSE HOOVER, 06/30/2024 05:50:04
[2024-06-26] MEDS: ALBUTEROL 0.083% 2.5 MG/3 ML NEB 20 MG IH (15:00)
[2024-06-26] MEDS: CEFTRIAXONE 1 GM 1 GM in 0.9 % SODIUM CHLORIDE 50 ML IV (15:21)
--- NOTE | 2024-06-26 15:21 | HMH.PHAINT1 ---
Pharmacy Intervention Comments: MEDICATION RECONCILIATION COMPLETED ON PATIENT USING EXTERNAL FILL HISTORY FROM PHARMACY AND LIST FROM CARDIOLOGY/PCP OFFICES. -LUIS DANIEL CUEVASD
--- NOTE | 2024-06-26 15:30 | PC.NURSE ---
Called report to Patricia STEWART on med Surg
--- NOTE | 2024-06-26 16:02 | CT_ITS ---
PROCEDURE INFORMATION: Exam: CTA Chest With Contrast Exam date and time: 06/26/2024 4:16 PM Age: 59 years old Clinical indication: Other: Acute hypoxia; Additional info: Acute hypoxia, respiratory distress TECHNIQUE: Imaging protocol: Computed tomographic angiography of the chest with contrast. Exam focused on the arteries. 3D rendering (Not supervised by radiologist): MIP and/or 3D reconstructed images were created by the technologist. Radiation optimization: All CT scans at this facility use at least one of these dose optimization techniques: automated exposure control; mA and/or kV adjustment per patient size (includes targeted exams where dose is matched to clinical indication); or iterative reconstruction. Contrast material: ISOVUE; Contrast volume: 70 ml; Contrast route: INTRAVENOUS (IV); COMPARISON: CT ANGIO CHEST 04/09/2023 3:53 PM FINDINGS: Pulmonary arteries: There is suboptimal opacification of pulmonary arteries due to contrast bolus timing. Aorta: Unremarkable. No aortic aneurysm. No aortic dissection. Lungs: Calcified granuloma left upper lobe. Bilateral ground-glass regions of opacification. Findings nonspecific however most likely reflect interstitial lung disease. An acute inflammatory process could not be entirely excluded. Right middle and lower lobe regions of consolidation. Bibasilar subsegmental atelectasis. Patchy infiltrative opacities left lung base. Pleural spaces: Unremarkable. No pneumothorax. No pleural effusion. Heart: Unremarkable. . Mild cardiomegaly.. No pericardial effusion. Coronary arteries: Extensive coronary artery calcification Lymph nodes: Densely calcified left hilar lymph nodes. Noncalcified bilateral hilar lymph nodes measuring up to 15 mm. Bones/joints: Thoracic spondylosis with multilevel disc degeneration. Multiple chronic compression fracture deformities. Soft tissues: Unremarkable. IMPRESSION: 1. No large or central pulmonary embolus. Evaluation of the peripheral pulmonary arteries is limited. 2. Right middle and lower lobe regions of consolidation. Bibasilar subsegmental atelectasis. Patchy infiltrative opacities left lung base. 3. Evidence of prior granulomatous disease.
--- NOTE | 2024-06-26 16:10 | PC.NURSE ---
PT IS AT CT
[2024-06-26] MEDS: 0.9 % SODIUM CHLORIDE 50 ML VIAL IV (16:24)
[2024-06-26] MEDS: SODIUM CHLORIDE 0.9% 10ML SYR (RAD ONLY) 10 ML IV (16:24)
[2024-06-26] MEDS: IOPAMIDOL-370 (76%);100ML BOTTLE 80 ML IV (16:24)
[2024-06-26 17:41] LABS: Troponin I < 0.01 ng/ml (0.00-0.034)
[2024-06-26] MEDS: IPRATROPIUM BROMIDE 0.5 MG/2.5ML SOLUTION IH ×2 (18:05→23:31)
[2024-06-26] MEDS: LEVALBUTEROL 1.25MG/3ML NEB 1.25 MG IH (18:05)
[2024-06-26] MEDS: BUDESONIDE 0.5MG/2ML NEB 0.5 MG IH (18:05)
--- NOTE | 2024-06-26 18:15 | PC.NURSE ---
Pt is A&O x4. Was on 6L NC. Pt's O2 noted to decline. Pt placed on 50% Venti. Sats did not improve. Pt placed on Vapotherm. Current settings : 35L 70%. O2 sats 94%. Pt denies any discomfort. Call light within reach.
[2024-06-26 18:38] LABS: POC Glucose,Bedside 147 (70-110)
[2024-06-26] MEDS: humaLOG 100 UNITS/ML 10ML VIAL (SSI) SUBCUT (20:43)
[2024-06-26 20:49] LABS: Troponin I < 0.01 ng/ml (0.00-0.034)
--- NOTE | 2024-06-26 22:26 | P.HP_ITS ---
History of Present Illness *Admission Date: 06/26/24 *History of present illness: Daniel Kwan is a 59-year-old male with a medical history significant for COPD on 2 L, severe sleep apnea, CAD with stent, hypertension, hyperlipidemia, type 2 diabetes who presents with worsening shortness of breath. He states he has not been taking his medications for many weeks and then he became increasingly short of breath over the past 2 weeks. Denies chest pain. Workup in the ED significant for a compensated ABG, D-dimer 0.85, BNP 1160. CTA chest revealed multifocal pneumonia in bilateral lungs with no evidence of PE. CXR suggests possible volume overload. On my evaluation of the patient, he is requiring Vapotherm 35 L FiO2 70%. Case discussed with ED provider and decision was made to admit patient for acute on chronic hypoxic respiratory failure secondary to community-acquired pneumonia, COPD exacerbation, and possible HFpEF exacerbation. [facility] Disclaimer: The information contained in this section may have been updated after the patient was seen, as this information can be updated by other users. Medical History Hoarseness Encounter for screening for malignant neoplasm of lung Dyspnea on exertion Pulmonary emphysema Smoking greater than 30 pack years Weakness COPD (chronic obstructive pulmonary disease) On mechanically assisted ventilation Thickening of wall of gallbladder Pneumonia Acute respiratory failure with hypoxia and hypercarbia Non-ST elevation IN (NSTEMI) Acute dehydration SAUD (acute kidney injury) Ataxia Nausea & vomiting Diabetes mellitus Smoker Polycythemia vera Witnessed episode of apnea Obstructive sleep apnea syndrome CAD (coronary atherosclerotic disease) Recent stent procedure Polycythemia vera Abnormal echocardiogram Cellulitis Dyspnea Sinus tachycardia Edema of both lower extremities GERD (gastroesophageal reflux disease) Dry skin dermatitis Arthritis HLD (hyperlipidemia) Nonspecific abdominal pain Obesity Tobacco abuse COPD (chronic obstructive pulmonary disease) HTN (hypertension) Surgical History History of heart artery stent Hx of tonsillectomy Family History Other Cancer Diabetes Heart attack Hyperlipidemia Hypertension Social History Smoking Status: Current every day smoker tobacco type: cigarettes packs per day: 1 smoking status stop date: 03/2023 alcohol intake: current alcohol intake frequency: a few times a month substance use type: denies use current occupational status: employed Travel in the last 8 weeks: None Have you lived/traveled outside [place] in past 30 days?: No Contact w/someone who lives/traveled outside [place] past 30 days?: No Exposure to someone with infectious disease in past 14 days?: No Do you have a fever (greater than 100.4 F or 38 C)?: No Have you tested positive for COVID-19: No Exposed to someone with COVID-19 in past 14 days?: No Do you have a sore throat?: No Do you have a cough?: No Do you have any weakness?: No Do you have any diarrhea?: No Are you experiencing any unusual bleeding?: No Do you have any muscle aches/pain?: No Do you have any abdominal pain?: No Are you experiencing loss of taste or smell?: No Other Medical History Have you received the Flu Vaccine for this season: No Have you received the Pneumonia Vaccine: No Meds Home Medications and Allergies Home Medications ?Medication ?Instructions ?Recorded ?Confirmed ?Type blood-glucose meter (Blood Glucose #1 ea 01/15/23 06/26/24 Rx Monitoring kit) blood sugar diagnostic (Blood #50 ea 01/19/23 06/26/24 Rx Glucose Test strips) aspirin 325 mg tablet 325 mg PO DAILY 04/09/23 06/26/24 History clopidogrel 75 mg tablet (Plavix) 75 mg PO DAILY #90 tabs 06/24/23 06/26/24 Rx furosemide 40 mg tablet (Lasix) 40 mg PO DAILY #30 tabs 07/01/23 06/26/24 Rx amlodipine 5 mg tablet 5 mg PO DAILY #90 tabs 08/11/23 06/26/24 Rx carvedilol 25 mg tablet 25 mg PO BID #90 tabs 12/20/23 06/26/24 Rx cholecalciferol (vitamin D3) 50 50 mcg PO DAILY #90 caps 03/03/24 06/26/24 Rx mcg (2,000 unit) capsule dapagliflozin propanediol 10 mg 10 mg PO DAILY #90 tabs 03/03/24 06/26/24 Rx tablet (Farxiga) magnesium oxide 400 mg PO DAILY #90 tabs 03/03/24 06/26/24 Rx umeclidinium 62.5 mcg-vilanterol 1 inh inhalation DAILY 90 days 05/01/24 06/26/24 Rx 25 mcg/actuation powdr for #180 ea inhalation (Anoro Ellipta) atorvastatin 40 mg tablet (Lipitor) 40 mg PO DAILY #30 tabs 05/24/24 06/26/24 Rx albuterol sulfate 90 mcg/actuation 2 puff inhalation QIDP PRN 06/26/24 06/26/24 History aerosol inhaler Shortness Of Breath ipratropium 0.5 mg-albuterol 3 mg 3 ml inhalation QIDP PRN Shortness 06/26/24 06/26/24 History (2.5 mg base)/3 mL nebulization Of Breath soln lisinopril 40 mg tablet 40 mg PO DAILY 06/26/24 06/26/24 History New Prescriptions to Start Prescriptions: Allergies Allergy/AdvReac Type Severity Reaction Status Date / Time acetaminophen (From Tylenol) Allergy Intermediate Rash Verified 05/24/24 09:25 Exam Data for Last 24 hours Vital signs and Labs for Last 24 Hours: Temp Pulse Resp BP Pulse Ox O2 Del Method O2 Flow Rate 98.6 F 100 H 22 155/94 H 92 L Vapotherm 35 06/26/24 15:34 06/26/24 20:00 06/26/24 18:00 06/26/24 18:00 06/26/24 18:06 06/26/24 19:00 06/26/24 19:00 FiO2 70 06/26/24 18:06 Laboratory Results - last 24 hr 06/26/24 13:01: Specimen Source Right radial, O2 % 6 lpm nc, ABG pH 7.39, ABG pCO2 69.3 H, ABG pO2 59.6 L, ABG HCO3 41.2 H, ABG Total CO2 43.3 H, ABG O2 Saturation 93, ABG Base Excess 12.0 H, Ben Test Y 06/26/24 13:02: WBC 8.6, RBC 6.07, Hgb 17.9, Hct 59.8 H, MCV 98.5 H, MCH 29.5, MCHC 29.9 L, RDW 16.4, Plt Count 124 L, MPV 11.0 H, Neut % (Auto) 74.7, Lymph % (Auto) 11.9, Hart % (Auto) 12.1 H, Eos % (Auto) 0.1, Baso % (Auto) 0.6, Neut # (Auto) 6.4, Lymph # (Auto) 1.0, Hart # (Auto) 1.0, Eos # (Auto) 0.0, Baso # (Auto) 0.1, D-Dimer 0.85 H, Sodium 136, Potassium 4.4, Chloride 82 L, Carbon Dioxide 44 H*, Anion Gap 14.4, BUN 14, Creatinine 0.70, Estimated Creat Clear 15 8, Estimated GFR 116, Est GFR ( Amer) 140, Glucose 146 H, Calcium 8.8, Total Bilirubin 1.6 H, AST 33, ALT 22, Alkaline Phosphatase 140 H, Troponin I < 0.01, NT-Pro-B Natriuret Pep 1160 H, Total Protein 7.5, Albumin 4.0, Globulin 3.5 H, Albumin/Globulin Ratio 1.1 06/26/24 13:10: ABG Lactate 2.0 06/26/24 16:50: Troponin I < 0.01 06/26/24 17:11: POC Glucose 147 H 06/26/24 20:00: Troponin I < 0.01 I & O for Last 24 hours: Intake & Output 06/23/24 06/24/24 06/25/24 06/26/24 23:59 23:59 23:59 23:59 Weight 97.069 kg Constitutional Constitutional: no acute distress *Routine HEENT Exam Head: Present normocephalic Eye: Present EOMI and PERRL ENT: Present mucous membranes moist *Routine Neck Exam Neck: Present supple; Absent lymphadenopathy *Routine Respiratory Exam Respiratory: Present CTA bilaterally *Routine Cardiovascular Exam Cardiovascular: Present RRR *Routine Abdominal Exam Abdominal: Present soft and normoactive bowel sounds; Absent tenderness *Routine Rectal Exam Rectal:: deferred *Routine Genitalia Exam Genitalia:: deferred *Routine Extremities Exam Extremities: Absent cyanosis, clubbing or edema *Routine Skin Exam Skin: Present warm; Absent rash Comments: Diffusely scaly skin. *Routine Neurological Exam Neurological: Present alert and oriented X3 Assessment and Plan *Assessment and plan (1) Acute exacerbation of chronic obstructive pulmonary disease (COPD): Status: Acute Category: Medical Code(s): J44.1 - Chronic obstructive pulmonary disease with (acute) exacerbation (2) Acute respiratory failure with hypoxia: Status: Acute Category: Medical Code(s): J96.01 - Acute respiratory failure with hypoxia (3) Community acquired pneumonia: Status: Acute Category: Medical Code(s): J18.9 - Pneumonia, unspecified organism Plan Daniel wKan is a 59-year-old male with a medical history significant for COPD on 2 L, severe sleep apnea, CAD with stent, hypertension, hyperlipidemia, type 2 diabetes who presents with worsening shortness of breath. He states he has not been taking his medications for many weeks and then he became increasingly short of breath over the past 2 weeks. Denies chest pain. Workup in the ED significant for a compensated ABG, D-dimer 0.85, BNP 1160. CTA chest revealed multifocal pneumonia in bilateral lungs with no evidence of PE. CXR suggests possible volume overload. On my evaluation of the patient, he is requiring Vapotherm 35 L FiO2 70%. Case discussed with ED provider and decision was made to admit patient for acute on chronic hypoxic respiratory failure secondary to community-acquired pneumonia, COPD exacerbation, and possible HFpEF exacerbation. #Acute hypoxic respiratory failure ? Combination of community-acquired pneumonia, COPD exacerbation, possible HFpEF exacerbation. See separate problems. ? Currently requiring Vapotherm 35 L FiO2 70%. Baseline 2 L at night. #Sepsis #Multifocal community-acquired pneumonia ? CTA chest reveals bilateral multifocal pneumonia. ? Initially tachycardic, tachypneic. WBC however 8.6. ? Cefepime, azithromycin day 1. ? Follow-up sputum, blood cultures. Blood cultures were not collected before antibiotics were started. ? Pulmonology consulted, pending further recommendations. #Acute COPD exacerbation ? Levalbuterol, ipratropium, Pulmicort. ? Antibiotics as above for pneumonia. ? IV Solu-Medrol 40 mg daily. ? Follow-up respiratory panel. ? VBG reassuring for no acute hypercapnia. #Possible HFpEF exacerbation ? CXR suggests possible volume overload, BNP 1160. ? IV Lasix 40 mg twice daily. Adjust based on response and renal function. ? Continue home Farxiga 10 mg. ? Follow-up ECHO. ? Cardiology consulted, pending further recommendations. #Hypertension ? Resume home medications once reconciled. #Severe sleep apnea ? Refused CPAP. #CAD with stent ? Aspirin, statin. #Type 2 diabetes ? ACHS glucose checks, LDSSI. ? Continue home Farxiga. Full code DVT prophylaxis: Lovenox 40 mg
[2024-06-26] MEDS: SODIUM CHLORIDE 3% 15ML NEB 3 ML IH (23:32)
[2024-06-26] MEDS: FUROSEMIDE 40MG/4ML VIAL 40 MG IV (23:49)
[2024-06-26] MEDS: CEFEPIME HCL 2 GM in 0.9 % SODIUM CHLORIDE 100 ML IV (23:49)
[2024-06-27] VITALS (58 sets, daily range): BP systolic 120–173; BP diastolic 73–109; PULSE 62–106; RESP 11–24; TEMP 36.2–36.9; O2SAT 83–95; BMI 29.0; BMI 28.9
[2024-06-27] MEDS: LEVALBUTEROL 1.25MG/3ML NEB 1.25 MG IH ×6 (02:00→21:44)
[2024-06-27] MEDS: IPRATROPIUM BROMIDE 0.5 MG/2.5ML SOLUTION IH ×6 (02:00→21:45)
[2024-06-27 03:18] LABS: Microscopic, Urine URINE MICROSCOPIC (MICROSCOPIC)
[2024-06-27 03:20] LABS: Appearance,Urine CLEAR (Clear); Bilirubin,Urine Negative (Negative); Blood, Urine TRACE-I (Negative); Color,Urine YELLOW (Yellow); Glucose,Urine (UA) Negative (Negative); Ketones,Urine Negative (Negative); Leukocyte Esterase,Urine Negative (Negative); Nitrate,Urine Negative (Negative); Protein,Urine 1+ (Negative); Urobilinogen,Urine 0.2 EU/dl (0.2)
[2024-06-27 03:26] LABS: RBC,Urine Occasional #/hpf (0-3)
[2024-06-27 03:27] LABS: Hyaline Casts,Urine Occasional #/lpf (0); Squamous Epithelial Cell,Urine Occasional #/hpf (0-5)
--- NOTE | 2024-06-27 06:30 | CA_ITS ---
APPROVED REPORT EXAM: Comprehensive 2D, Doppler, and color-flow Echocardiogram Consulting Manager: Renata Rios CRT Ht: 6 ft 0 in Wt: 214lbs BSA: 2.19 BP: 155/94 mmHg Indications: COPD, Shortness of Breath, Diabetes, Hyperlipidemia, Hypertension/HDD, smoker, EPHRAIM, stent, pt stopped all meds many wks ago, resp failure, vapotherm 2D Dimensions LA Volume 34.50 mL LA Volume Index 15.079852 mL/m2 (M/F) 16-34 M-Mode Dimensions RVDd 3.27 cm (0.9-2.6) LA Diam 4.73 cm (1.9-4.0) LVDd 3.65 cm (3.5-5.7) LVDs 2.09 cm (3.5-5.7) IVSd 2.40 cm (0.6-1.1) PWd 1.10 cm (0.6-1.1) EF (Teich) 74.80% FS 42.70% EDV (Teich) 56.30 mL TAPSE 2.32 (<1.7) ESV (Teich) 14.20 mL LV Diastology E Decel Time 200 (160-240 msec) E/A Ratio 0.80 MED A' 11.10 cm/s LAT A' 9.80 cm/s Aortic Valve CYNTHIA Index 0.95 cm2/m2 AoV Peak Pablo. 191.0 (50-130 cm/s) AO Peak GR. 14.60 mmHg AO Mean GR. 7.80 (<5 mmHg) AO VTI 33.1 (18-25 cm) CYNTHIA (VTI) 2.13 (2.5-4.5 cm2) Mitral Valve MV E Max Pablo. 63.0 (40-130 cm/s) MV A Velocity 78.0 (40-130 cm/s) E/A Ratio 0.80 MV PHT 59.0 ms Tricuspid Valve TR P. Velocity 308.00 cm/s RAP Estimate 10.00 mmHg RVSP 48.10 mmHg Left Ventricle The left ventricle is normal size. The left ventricular systolic function is normal. The left ventricular ejection fraction is within the normal range. There is increased LV wall thickness. There is normal LV segmental wall motion. Diastolic function is indeterminate. LVEF is 65%. Right Ventricle Right ventricle is moderate to severely dilated. Right ventricle is moderately hypokinetic. Atria The left atrium size is normal. The right atrium size is normal. There is no Doppler evidence of interatrial shunt. Aortic Valve The aortic valve is mildly thickened. There is no aortic valvular stenosis. Trace aortic regurgitation. Mitral Valve The mitral valve is normal in structure. Trace mitral regurgitation. No evidence of mitral valve stenosis. Tricuspid Valve Tricuspid valve is grossly normal in structure and function. Mild tricuspid regurgitation. RVSP is 40-45 mmHg. Pulmonic Valve The pulmonary valve is normal in structure. Trace pulmonic regurgitation. Great Vessels The aortic root is normal in size. IVC is normal in size and collapses >50% with inspiration. Pericardium There is no pericardial effusion. Other Information Study Quality: Fair Conclusion Normal LV systolic function (LVEF 65%). Moderate to severe RV dilation with moderate reduction in RV function. Mild TR. Elevated RVSP 40-45 mmHg. Electronically signed by : Ivis Mendoza MD 06/28/2024 01:34:42
[2024-06-27] MEDS: BUDESONIDE 0.5MG/2ML NEB 0.5 MG IH ×2 (06:34→18:37)
[2024-06-27 08:19] LABS: Basophils % 0.2 % (0.1-2.0); Hematocrit 57.6 % (42.0-52.0); Hemoglobin 16.9 g/dL (14.1-18.0); Lymphocytes # 0.7 K/mm3 (0.7-4.5); Lymphocytes % 8.9 % (10-50); Mean Corpuscular HGB Conc 29.3 g/dL (31.8-35.4); Mean Corpuscular Hemoglobin 28.9 pg (27.0-31.2); Mean Corpuscular Volume 98.5 fl (80-94); Mean Platelet Volume 10.6 fl (7.4-10.4); Monocytes % 12.8 % (1.7-9.3); Neutrophils # 6.2 K/mm3 (1.8-7.8); Neutrophils % 77.2 % (37.0-80.0); Platelet Count 129 K/mm3 (142-424); Red Blood Count 5.85 M/mm3 (4.60-6.20); Red Cell Distribution Width 16.4 % (11.5-17.5); White Blood Count 8.1 K/mm3 (4.8-10.8)
[2024-06-27 08:24] LABS: Magnesium 1.7 mg/dl (1.6-2.3)
--- NOTE | 2024-06-27 08:25 | PC.NURSE ---
Dr. Grace at bedside at this time
[2024-06-27] MEDS: BUMETANIDE 1MG/4ML VIAL 2 MG IV (08:30)
[2024-06-27 09:29] LABS: ABG Base Excess 24.3 mmol/L (-2.4-2.3); ABG HCO3 49.9 mmhg (22.0-26.0); ABG Oxygen Saturation 91 % (90-100); ABG PH 7.35 mmol/L (7.35-7.45); ABG PO2 57.3 mmhg (80-100); ABG TCO2 52.8 mmhg (23-27)
[2024-06-27] MEDS: CEFEPIME HCL 2 GM in 0.9 % SODIUM CHLORIDE 100 ML IV ×2 (09:29→17:04)
[2024-06-27 09:31] LABS: Allen's Test Acceptable; Oxygen 100 %; Pressure Support 20/12; Source Left Radial
[2024-06-27 09:32] LABS: ABG PCO2 92.3 mmhg (35.0-45.0)
--- NOTE | 2024-06-27 09:45 | PC.NURSE ---
Dr. Grace instructed to hold PO morning meds at this time due to pts critical change in condition
[2024-06-27] MEDS: ENOXAPARIN 40MG/0.4ML SYRINGE 40 MG SUBCUT (10:00)
[2024-06-27] MEDS: METHYLPREDNISOLONE SOD SUCC 40MG VIAL 40 MG IV ×2 (10:00→20:19)
--- NOTE | 2024-06-27 10:22 | EXP.PULM.CON ---
History of Present Illness History of present illness: Mr. Carmona is a 59-year-old female greater than [id number] smoking history, COPD, sleep apnea previously refused CPAP therapy presented to the ER with worsening respiratory distress and pulmonary was called for further evaluation and management. [facility] Disclaimer: The information contained in this section may have been updated after the patient was seen, as this information can be updated by other users. Medical History Hoarseness Encounter for screening for malignant neoplasm of lung Dyspnea on exertion Pulmonary emphysema Smoking greater than 30 pack years Weakness COPD (chronic obstructive pulmonary disease) On mechanically assisted ventilation Thickening of wall of gallbladder Pneumonia Acute respiratory failure with hypoxia and hypercarbia Non-ST elevation DE (NSTEMI) Acute dehydration SAUD (acute kidney injury) Ataxia Nausea & vomiting Diabetes mellitus Smoker Polycythemia vera Witnessed episode of apnea Obstructive sleep apnea syndrome CAD (coronary atherosclerotic disease) Recent stent procedure Polycythemia vera Abnormal echocardiogram Cellulitis Dyspnea Sinus tachycardia Edema of both lower extremities GERD (gastroesophageal reflux disease) Dry skin dermatitis Arthritis HLD (hyperlipidemia) Nonspecific abdominal pain Obesity Tobacco abuse COPD (chronic obstructive pulmonary disease) HTN (hypertension) Surgical History History of heart artery stent Hx of tonsillectomy Family History Other Cancer Diabetes Heart attack Hyperlipidemia Hypertension Social History Smoking Status: Current every day smoker tobacco type: cigarettes packs per day: 1 smoking status stop date: 03/2023 alcohol intake: current alcohol intake frequency: a few times a month substance use type: denies use current occupational status: employed Travel in the last 8 weeks: None Have you lived/traveled outside [place] in past 30 days?: No Contact w/someone who lives/traveled outside [place] past 30 days?: No Exposure to someone with infectious disease in past 14 days?: No Do you have a fever (greater than 100.4 F or 38 C)?: No Have you tested positive for COVID-19: No Exposed to someone with COVID-19 in past 14 days?: No Do you have a sore throat?: No Do you have a cough?: No Do you have any weakness?: No Do you have any diarrhea?: No Are you experiencing any unusual bleeding?: No Do you have any muscle aches/pain?: No Do you have any abdominal pain?: No Are you experiencing loss of taste or smell?: No Review of Systems Constitutional Constitutional: Reports anorexia, Reports body ache(s) and Reports fatigue Eyes Eyes: Denies eye discharge, Denies dry eyes, Denies irritation and Denies itchy eyes ENT Ears, Nose, Mouth, and Throat: Denies epistaxis, Denies facial pain, Denies lip swelling and Denies throat swelling *Cardiovascular Cardiovascular: Reports dyspnea and Reports dyspnea on exertion *Respiratory Respiratory: Reports chest congestion, Reports cough, Reports dyspnea, Reports dyspnea on exertion, Denies excessive phlegm production, Denies hemoptysis, Denies pain on inspiration, Denies pain with cough and Reports wheezing *Gastrointestinal Gastrointestinal: Denies abdominal pain, Denies belching and Denies cramping *Musculoskeletal Musculoskeletal: Reports back pain, Reports myalgias and Reports other (No small joint swelling or Pain) Psychiatric Psychiatric: Denies homicidal ideation and Denies suicidal ideation Endocrine Endocrine: Reports fatigue and Denies heat intolerance Hematologic/Lymphatic Hematologic/Lymphatic: Denies easy bleeding and Denies lymphadenopathy Allergic/Immunologic Allergic/Immunologic: Denies itchy eyes, Denies lip swelling, Denies throat swelling and Reports wheezing Pulmonology Exam Inpatient Vital signs and Labs for Last 24 Hours: Temp Pulse Resp BP Pulse Ox O2 Del Method O2 Flow Rate 98.1 F 88 22 151/93 H 86 L Vapotherm 40 06/27/24 08:00 06/27/24 08:00 06/27/24 08:00 06/27/24 08:00 06/27/24 08:00 06/27/24 08:00 06/27/24 08:00 FiO2 100 06/27/24 08:00 Laboratory Results - last 24 hr 06/26/24 13:01: Specimen Source Right radial, O2 % 6 lpm nc, ABG pH 7.39, ABG pCO2 69.3 H, ABG pO2 59.6 L, ABG HCO3 41.2 H, ABG Total CO2 43.3 H, ABG O2 Saturation 93, ABG Base Excess 12.0 H, Ben Test Y 06/26/24 13:02: WBC 8.6, RBC 6.07, Hgb 17.9, Hct 59.8 H, MCV 98.5 H, MCH 29.5, MCHC 29.9 L, RDW 16.4, Plt Count 124 L, MPV 11.0 H, Neut % (Auto) 74.7, Lymph % (Auto) 11.9, [place] % (Auto) 12.1 H, Eos % (Auto) 0.1, Baso % (Auto) 0.6, Neut # (Auto) 6.4, Lymph # (Auto) 1.0, [place] # (Auto) 1.0, Eos # (Auto) 0.0, Baso # (Auto) 0.1, D-Dimer 0.85 H, Sodium 136, Potassium 4.4, Chloride 82 L, Carbon Dioxide 44 H*, Anion Gap 14.4, BUN 14, Creatinine 0.70, Estimated Creat Clear 158, Estimated GFR 116, Est GFR ( Amer) 140, Glucose 146 H, Calcium 8.8, Total Bilirubin 1.6 H, AST 33, ALT 22, Alkaline Phosphatase 140 H, Troponin I < 0.01, NT-Pro-B Natriuret Pep 1160 H, Total Protein 7.5, Albumin 4.0, Globulin 3.5 H, Albumin/Globulin Ratio 1.1 06/26/24 13:10: ABG Lactate 2.0 06/26/24 16:50: Troponin I < 0.01 06/26/24 17:11: POC Glucose 147 H 06/26/24 20:00: Troponin I < 0.01 06/27/24 03:15: Urine Color Yellow, Urine Appearance Clear, Urine pH 6.0, Ur Specific [place] 1.020, Urine Protein 1+ A, Urine Glucose (UA) Negative, Urine Ketones Negative, Urine Blood Trace-i, Urine Nitrate Negative, Urine Bilirubin Negative, Urine Urobilinogen 0.2, Ur Leukocyte Esterase Negative, Urine RBC Occasional, Urine WBC None, Ur Squamous Epith Cells Occasional, Urine Bacteria None, Hyaline Casts Occasional 06/27/24 06:32: WBC 8.1, RBC 5.85, Hgb 16.9, Hct 57.6 H, MCV 98.5 H, MCH 28.9, MCHC 29.3 L, RDW 16.4, Plt Count 129 L, MPV 10.6 H, Neut % (Auto) 77.2, Lymph % (Auto) 8.9 L, [place] % (Auto) 12.8 H, Eos % (Auto) 0.0 L, Baso % (Auto) 0.2, Neut # (Auto) 6.2, Lymph # (Auto) 0.7, [place] # (Auto) 1.0, Eos # (Auto) 0.0, Baso # (Auto) 0.0, Magnesium 1.7 06/27/24 09:25: Specimen Source Left radial, O2 % 100, ABG pH 7.35, ABG pCO2 92.3 H, ABG pO2 57.3 L, ABG HCO3 49.9 H, ABG Total CO2 52.8 H, ABG O2 Saturation 91, ABG Base Excess 24.3 H, Ben Test Acceptable I & O for Labs for Last 24 Hours: Intake & Output 06/24/24 06/25/24 06/26/24 06/27/24 23:59 23:59 23:59 23:59 Intake Total 610 / 610 Output Total 200 / 200 0 / 0 Balance -200 / 140 610 / 610 Weight 214 lb 213 lb 15.902 oz Microbiology Reports for the Last 24 Hours: Microbiology 04/17/23 09:30 Sputum - Endotracheal Tube Aspirate Gram Stain - Final 04/17/23 09:30 Sputum - Endotracheal Tube Aspirate Sputum Culture - Final Constitutional: Present severe distress Comment:: Intubated and Sedated Head: Present normocephalic and atraumatic Comment:: uvular edema noted. No stridor Neck: Present normal inspection and trachea midline Respiratory: Present rhonchi and wheezes; Absent respiratory distress or able to speak in complete sentences Cardiac: Present S1/S2 and Tachycardia GI: Present soft; Absent distention or tenderness Skin: Present intact; Absent cyanosis Neuro: Present alert, awake and oriented x 3 Comment:: Intubated and sedated Extremities: Present normal inspection; Absent clubbing or cyanosis Psychiatric: Present unable to assess Meds Home Medications and Allergies Home Medications ?Medication ?Instructions ?Recorded ?Confirmed ?Type blood-glucose meter (Blood Glucose #1 ea 01/15/23 06/26/24 Rx Monitoring kit) blood sugar diagnostic (Blood #50 ea 01/19/23 06/26/24 Rx Glucose Test strips) aspirin 325 mg tablet 325 mg PO DAILY 04/09/23 06/26/24 History clopidogrel 75 mg tablet (Plavix) 75 mg PO DAILY #90 tabs 06/24/23 06/26/24 Rx furosemide 40 mg tablet (Lasix) 40 mg PO DAILY #30 tabs 07/01/23 06/26/24 Rx amlodipine 5 mg tablet 5 mg PO DAILY #90 tabs 08/11/23 06/26/24 Rx carvedilol 25 mg tablet 25 mg PO BID #90 tabs 12/20/23 06/26/24 Rx cholecalciferol (vitamin D3) 50 50 mcg PO DAILY #90 caps 03/03/24 06/26/24 Rx mcg (2,000 unit) capsule dapagliflozin propanediol 10 mg 10 mg PO DAILY #90 tabs 03/03/24 06/26/24 Rx tablet (Farxiga) magnesium oxide 400 mg PO DAILY #90 tabs 03/03/24 06/26/24 Rx umeclidinium 62.5 mcg-vilanterol 1 inh inhalation DAILY 90 days 05/01/24 06/26/24 Rx 25 mcg/actuation powdr for #180 ea inhalation (Anoro Ellipta) atorvastatin 40 mg tablet (Lipitor) 40 mg PO DAILY #30 tabs 05/24/24 06/26/24 Rx albuterol sulfate 90 mcg/actuation 2 puff inhalation QIDP PRN 06/26/24 06/26/24 History aerosol inhaler Shortness Of Breath ipratropium 0.5 mg-albuterol 3 mg 3 ml inhalation QIDP PRN Shortness 06/26/24 06/26/24 History (2.5 mg base)/3 mL nebulization Of Breath soln lisinopril 40 mg tablet 40 mg PO DAILY 06/26/24 06/26/24 History New Prescriptions to Start Prescriptions: Allergies Allergy/AdvReac Type Severity Reaction Status Date / Time acetaminophen (From Tylenol) Allergy Intermediate Rash Verified 05/24/24 09: Results Laboratory Findings 06/27/24 06:32 06/26/24 13:02 ABG ABG pH 7.35 mmol/L (7.35-7.45) 06/27/24 09: ABG pCO2 92.3 mmhg (35.0-45.0) H 06/27/24 09: ABG pO2 57.3 mmhg (80-100) L 06/27/24 09:25 ABG O2 Saturation 91 % (90-100) 06/27/24 09:25 PT/INR, D-dimer D-Dimer 0.85 ug/mL (0.0-0.5) H 06/26/24 13:02 Abnormal lab findings: Abnormal Labs 06/26/24 06/26/24 06/26/24 13:01 13:02 17:11 Hct 59.8 H MCV 98.5 H MCHC 29.9 L Plt Count 124 L MPV 11.0 H Lymph % (Auto) [place] % (Auto) 12.1 H Eos % (Auto) D-Dimer 0.85 H ABG pCO2 69.3 H ABG pO2 59.6 L ABG HCO3 41.2 H ABG Total CO2 43.3 H ABG Base Excess 12.0 H Chloride 82 L Carbon Dioxide 44 H* Glucose 146 H POC Glucose 147 H Total Bilirubin 1.6 H Alkaline Phosphatase 140 H NT-Pro-B Natriuret Pep 1160 H Globulin 3.5 H Urine Protein 06/27/24 06/27/24 06/27/24 03:15 06:32 09:25 Hct 57.6 H MCV 98.5 H MCHC 29.3 L Plt Count 129 L MPV 10.6 H Lymph % (Auto) 8.9 L [place] % (Auto) 12.8 H Eos % (Auto) 0.0 L D-Dimer ABG pCO2 92.3 H ABG pO2 57.3 L ABG HCO3 49.9 H ABG Total CO2 52.8 H ABG Base Excess 24.3 H Chloride Carbon Dioxide Glucose POC Glucose Total Bilirubin Alkaline Phosphatase NT-Pro-B Natriuret Pep Globulin Urine Protein 1+ A Assessment and Plan *Assessment and plan (1) Acute exacerbation of chronic obstructive pulmonary disease (COPD): Status: Acute Category: Medical Code(s): J44.1 - Chronic obstructive pulmonary disease with (acute) exacerbation (2) Acute respiratory failure with hypoxia: Status: Acute Category: Medical Code(s): J96.01 - Acute respiratory failure with hypoxia (3) Community acquired pneumonia: Status: Acute Category: Medical Code(s): J18.9 - Pneumonia, unspecified organism Plan Mr. Carmona is a 59-year-old male greater than [id number] smoking history, COPD, sleep apnea previously refused CPAP therapy presented to the ER with worsening respiratory distress and pulmonary was called for further evaluation and management. CTA upon admission suboptimal timing, no obvious central pulmonary embolism but right lower lobe airspace disease and consolidative changes noted. AFebrile. Hemodynamically stable. Currently receicing cefepime azithromycin and steroids and nebulization therapies. On examination severe respiratory distress. Oxygen desaturation noted with high flow nasal cannula 40 L 100%, escalated to BiPAP therapy with saturations maintained at 89% and above. Plan: Continue BiPAP therapy clinical improvement. No evidence of hypercarbic respiratory failure noted on blood gas this morning. DuoNebs every 4 hours along with Pulmicort every 12 scheduled Continue steroids Follow lower extremity venous Doppler Follow-up with respiratory viral PCR panel Continue cefepime and azithromycin pending culture results and MRSA PCR
[2024-06-27] MEDS: AZITHROMYCIN 500 MG in 0.9 % SODIUM CHLORIDE 250 ML 250 MG IV (10:30)
--- NOTE | 2024-06-27 10:46 | PC.NURSE ---
Dr. Shaw at bedside
[2024-06-27 11:21] LABS: POC Glucose,Bedside 151 (70-110)
[2024-06-27 11:21] LABS: POC Glucose,Bedside 196 (70-110)
[2024-06-27 11:21] LABS: POC Glucose,Bedside 139 (70-110)
[2024-06-27 12:26] LABS: Coronavirus 19, PCR Not Detected (NotDetected); Human Rhinovirus Not Detected (NotDetected); Influenza A, PCR Not Detected (NotDetected); Influenza B, PCR Not Detected (NotDetected); Respiratory Syncytial Virus Not Detected (NotDetected)
--- NOTE | 2024-06-27 12:32 | PC.NURSE ---
pt transported to the ICU by PAT Brooks and PAT Pino with RT. I spoke to the pt's S/O and informed her of his room and status change. pt notified of conversation as well.
--- NOTE | 2024-06-27 12:43 | CA_ITS ---
FINAL REPORT TECHNIQUE: Bilateral lower extremity venous duplex was performed with augmentation and compression. CLINICAL HISTORY: COPD exacerbation, acute respiratory failure, hypoxia, HTN, HLD, currently on bipap, DM, smoker. Bilateral legs are dry and hyperkeratosis. Difficult to image. COMPARISON: None FINDINGS: Proper flow is seen throughout the deep venous systems bilaterally. There is no evidence of deep venous thrombosis. IMPRESSION: No evidence of deep venous thrombosis. Reviewed, Interpreted and Dictated by Ryan Moya MD Transcribed by Meliza Morales Authenticated and [facility]
--- NOTE | 2024-06-27 14:52 | P.CONCA_ITS ---
History of Present Illness History of Present Illness Consult date: 06/27/24 Requesting physician: [facility] Consult reason: shortness of breath Chief complaint: SOA History of present illness: This is a 59-year-old gentleman who presented to the emergency department complaints of shortness of breath. He has a past medical history of COPD, coronary artery disease, hypertension, hyperlipidemia, diabetes and untreated sleep apnea. The patient presented to the emergency department with increasing shortness of breath over the last 2 weeks. He states he got progressively worse and his shortness of breath was severe that is why he decided to come to the emergency department. He denies any chest pain or pressure. He denies any lower extremity edema. He denies any fever, chills, nausea, vomiting, diarrhea, PND orthopnea. The patient is currently on BiPAP satting around 88% this morning. He states he feels no better than when he came into the emergency department. He is currently being treated for community acquired pneumonia and COPD exacerbation. There is concern for HFpEF exacerbation as well. [facility] Disclaimer: The information contained in this section may have been updated after the patient was seen, as this information can be updated by other users. Medical History (Updated 06/27/24 @ 14:59 by Amanda Clark APRN) RVF (right ventricular failure) Hoarseness Encounter for screening for malignant neoplasm of lung Dyspnea on exertion Pulmonary emphysema Smoking greater than 30 pack years Weakness COPD (chronic obstructive pulmonary disease) On mechanically assisted ventilation Thickening of wall of gallbladder Pneumonia Acute respiratory failure with hypoxia and hypercarbia Non-ST elevation AK (NSTEMI) Acute dehydration SAUD (acute kidney injury) Ataxia Nausea & vomiting Diabetes mellitus Smoker Polycythemia vera Witnessed episode of apnea Obstructive sleep apnea syndrome CAD (coronary atherosclerotic disease) Polycythemia vera Abnormal echocardiogram Cellulitis Dyspnea Sinus tachycardia Edema of both lower extremities GERD (gastroesophageal reflux disease) Dry skin dermatitis Arthritis HLD (hyperlipidemia) Nonspecific abdominal pain Obesity Tobacco abuse COPD (chronic obstructive pulmonary disease) HTN (hypertension) Surgical History History of heart artery stent Hx of tonsillectomy Family History Other Cancer Diabetes Heart attack Hyperlipidemia Hypertension Social History Smoking Status: Current every day smoker tobacco type: cigarettes packs per day: 1 smoking status stop date: 03/2023 alcohol intake: current alcohol intake frequency: a few times a month substance use type: denies use current occupational status: employed Travel in the last 8 weeks: None Have you lived/traveled outside [place] in past 30 days?: No Contact w/someone who lives/traveled outside [place] past 30 days?: No Exposure to someone with infectious disease in past 14 days?: No Do you have a fever (greater than 100.4 F or 38 C)?: No Have you tested positive for COVID-19: No Exposed to someone with COVID-19 in past 14 days?: No Do you have a sore throat?: No Do you have a cough?: No Do you have any weakness?: No Do you have any diarrhea?: No Are you experiencing any unusual bleeding?: No Do you have any muscle aches/pain?: No Do you have any abdominal pain?: No Are you experiencing loss of taste or smell?: No Review of Systems Review of Systems Review of systems:: pertinent systems reviewed and negative unless documented below Constitutional Constitutional: Reports system reviewed and no additional complaints, except as documented, Reports fatigue and Reports lethargy Eyes Eyes: Reports system reviewed and no additional complaints, except as documented ENT Ears, Nose, Mouth, and Throat: Reports system reviewed and no additional complaints, except as documented *Cardiovascular Cardiovascular: Reports system reviewed and no additional complaints, except as documented, Denies chest pain, Reports dyspnea, Reports dyspnea on exertion and Reports orthopnea *Respiratory Respiratory: Reports system reviewed and no additional complaints, except as documented, Reports chest congestion, Reports cough, Reports dyspnea, Reports dyspnea on exertion and Reports excessive phlegm production *Gastrointestinal Gastrointestinal: Reports system reviewed and no additional complaints, except as documented *Genitourinary Genitourinary: Reports system reviewed and no additional complaints, except as documented *Musculoskeletal Musculoskeletal: Reports system reviewed and no additional complaints, except as documented Integumentary/Breasts Skin/Breast: Reports system reviewed and no additional complaints, except as documented *Neurologic Neurologic: Reports system reviewed and no additional complaints, except as documented Psychiatric Psychiatric: Reports system reviewed and no additional complaints, except as documented Endocrine Endocrine: Reports system reviewed and no additional complaints, except as documented and Reports fatigue Hematologic/Lymphatic Hematologic/Lymphatic: Reports system reviewed and no additional complaints, except as documented Allergic/Immunologic Allergic/Immunologic: Reports system reviewed and no additional complaints, except as documented Exam Data for Last 24 hours Vital signs and Labs for Last 24 Hours: Temp Pulse Resp BP Pulse Ox O2 Del Method O2 Flow Rate 98.1 F 89 21 135/92 H 89 L BiPAP 40 06/27/24 08:00 06/27/24 14:19 06/27/24 14:19 06/27/24 14:19 06/27/24 14:19 06/27/24 12:30 06/27/24 08:00 FiO2 100 06/27/24 08:34 Laboratory Results - last 24 hr 06/26/24 12:10: SARS-CoV-2 (PCR) Not detected, Influenza Type A (PCR) Not detected, Influenza Type B (PCR) Not detected, RSV (PCR) Not detected, Rhinovirus (PCR) Not detected 06/26/24 16:50: Troponin I < 0.01 06/26/24 17:11: POC Glucose 147 H 06/26/24 20:00: Troponin I < 0.01 06/26/24 20:14: POC Glucose 196 H 06/27/24 03:15: Urine Color Yellow, Urine Appearance Clear, Urine pH 6.0, Ur Specific [place] 1.020, Urine Protein 1+ A, Urine Glucose (UA) Negative, Urine Ketones Negative, Urine Blood Trace-i, Urine Nitrate Negative, Urine Bilirubin Negative, Urine Urobilinogen 0.2, Ur Leukocyte Esterase Negative, Urine RBC Occasional, Urine WBC None, Ur Squamous Epith Cells Occasional, Urine Bacteria None, Hyaline Casts Occasional 06/27/24 05:14: POC Glucose 151 H 06/27/24 06:32: WBC 8.1, RBC 5.85, Hgb 16.9, Hct 57.6 H, MCV 98.5 H, MCH 28.9, MCHC 29.3 L, RDW 16.4, Plt Count 129 L, MPV 10.6 H, Neut % (Auto) 77.2, Lymph % (Auto) 8.9 L, [place] % (Auto) 12.8 H, Eos % (Auto) 0.0 L, Baso % (Auto) 0.2, Neut # (Auto) 6.2, Lymph # (Auto) 0.7, Mineral # (Auto) 1.0, Eos # (Auto) 0.0, Baso # (Auto) 0.0, Magnesium 1.7 06/27/24 09:25: Specimen Source Left radial, O2 % 100, ABG pH 7.35, ABG pCO2 92.3 H, ABG pO2 57.3 L, ABG HCO3 49.9 H, ABG Total CO2 52.8 H, ABG O2 Saturation 91, ABG Base Excess 24.3 H, Ben Test Acceptable 06/27/24 11:07: POC Glucose 139 H I & O for Last 24 hours: Intake & Output 06/24/24 06/25/24 06/26/24 06/27/24 23:59 23:59 23:59 23:59 Intake Total 610 / 610 Output Total 200 / 200 0 / 0 Balance -200 / 140 610 / 610 Weight 214 lb 213 lb 15.902 oz Constitutional Constitutional: no acute distress and average body habitus *Routine HEENT Exam Head: Present normocephalic and atraumatic ENT: Present mucous membranes moist *Routine Neck Exam Neck: Present supple, full ROM and normal carotid upstroke; Absent JVD, carotid bruit or lymphadenopathy *Routine Respiratory Exam Respiratory: Present CTA bilaterally, normal respiratory effort, able to speak in complete sentences and symmetric chest movement *Routine Cardiovascular Exam Cardiovascular: Present RRR, Normal S1 and Normal S2; Absent murmur or gallop *Routine Abdominal Exam Abdominal: Present soft and normoactive bowel sounds; Absent tenderness, distended or organomegaly *Routine Extremities Exam Extremities: Present full ROM, pulses intact and normal capillary refill; Absent cyanosis, clubbing or edema *Routine Skin Exam Skin: Present intact and warm; Absent erythema *Routine Neurological Exam Neurological: Present alert, oriented X3 and CN II-XII intact; Absent sensory deficit or motor deficit Routine Psychiatric Exam Psychiatric: Present normal affect Meds Home Medications and Allergies Home Medications ?Medication ?Instructions ?Recorded ?Confirmed ?Type blood-glucose meter (Blood Glucose #1 ea 01/15/23 06/26/24 Rx Monitoring kit) blood sugar diagnostic (Blood #50 ea 01/19/23 06/26/24 Rx Glucose Test strips) aspirin 325 mg tablet 325 mg PO DAILY 04/09/23 06/26/24 History clopidogrel 75 mg tablet (Plavix) 75 mg PO DAILY #90 tabs 06/24/23 06/26/24 Rx furosemide 40 mg tablet (Lasix) 40 mg PO DAILY #30 tabs 07/01/23 06/26/24 Rx amlodipine 5 mg tablet 5 mg PO DAILY #90 tabs 08/11/23 06/26/24 Rx carvedilol 25 mg tablet 25 mg PO BID #90 tabs 12/20/23 06/26/24 Rx cholecalciferol (vitamin D3) 50 50 mcg PO DAILY #90 caps 03/03/24 06/26/24 Rx mcg (2,000 unit) capsule dapagliflozin propanediol 10 mg 10 mg PO DAILY #90 tabs 03/03/24 06/26/24 Rx tablet (Farxiga) magnesium oxide 400 mg PO DAILY #90 tabs 03/03/24 06/26/24 Rx umeclidinium 62.5 mcg-vilanterol 1 inh inhalation DAILY 90 days 05/01/24 06/26/24 Rx 25 mcg/actuation powdr for #180 ea inhalation (Anoro Ellipta) atorvastatin 40 mg tablet (Lipitor) 40 mg PO DAILY #30 tabs 05/24/24 06/26/24 Rx albuterol sulfate 90 mcg/actuation 2 puff inhalation QIDP PRN 06/26/24 06/26/24 History aerosol inhaler Shortness Of Breath ipratropium 0.5 mg-albuterol 3 mg 3 ml inhalation QIDP PRN Shortness 06/26/24 06/26/24 History (2.5 mg base)/3 mL nebulization Of Breath soln lisinopril 40 mg tablet 40 mg PO DAILY 06/26/24 06/26/24 History New Prescriptions to Start Prescriptions: Allergies Allergy/AdvReac Type Severity Reaction Status Date / Time acetaminophen (From Tylenol) Allergy Intermediate Rash Verified 05/24/24 09:25 Assessment and Plan *Assessment and plan (1) RVF (right ventricular failure): Status: Acute Category: Medical Code(s): I50.810 - Right heart failure, unspecified (2) Community acquired pneumonia: Status: Acute Qualifiers: Laterality: unspecified laterality Qualified Code(s): J18.9 - Pneumonia, unspecified organism Category: Medical Code(s): J18.9 - Pneumonia, unspecified organism (3) Acute exacerbation of chronic obstructive pulmonary disease (COPD): Status: Acute Category: Medical Code(s): J44.1 - Chronic obstructive pulmonary disease with (acute) exacerbation (4) Acute respiratory failure with hypoxia: Status: Acute Category: Medical Code(s): J96.01 - Acute respiratory failure with hypoxia (5) CAD (coronary artery disease): Status: Acute Qualifiers: Coronary Disease-Associated Artery/Lesion type: [place] artery [place] vs. transplanted heart: [place] heart Associated angina: without angina Qualified Code(s): I25.10 - Atherosclerotic heart disease of [place] coronary artery without angina pectoris Category: Medical Code(s): I25.10 - Atherosclerotic heart disease of [place] coronary artery without angina pectoris (6) Hypertension: Status: Acute Qualifiers: Hypertension type: unspecified Qualified Code(s): I10 - Essential (primary) hypertension Category: Medical Code(s): I10 - Essential (primary) hypertension (7) HLD (hyperlipidemia): Status: Acute Qualifiers: Hyperlipidemia type: mixed hyperlipidemia Qualified Code(s): E78.2 - Mixed hyperlipidemia Category: Medical Code(s): E78.5 - Hyperlipidemia, unspecified (8) Diabetes mellitus: Status: Acute Qualifiers: Diabetes mellitus type: type 2 Diabetes mellitus termite exterminator helper insulin use: without termite exterminator helper use Diabetes mellitus complication status: without complication Qualified Code(s): E11.9 - Type 2 diabetes mellitus without complications Category: Medical Code(s): E11.9 - Type 2 diabetes mellitus without complications Plan Plan: 1. The patient was admitted to the hospital with an acute respiratory failure. He is currently being treated for community-acquired pneumonia and acute exacerbation of COPD. Pulmonology has been consulted. Will defer. 2. There was some concern of an acute HFpEF exacerbation. Echocardiogram shows that he has a hyperdynamic EF with an ejection fraction of 70%. The patient has moderate dilation of his right ventricle with moderate RV dysfunction. The patient is a little more on the dry side with his hyperdynamic EF and he does not need any further diuresis at this time. 3. The patient would likely benefit from a little bit of gentle rehydration as mentioned above he is more on the dry side with his hyperdynamic EF at 70%. 4. The patient does have RV failure and if he does end up on the ventilator he would benefit from being on a dobutamine drip to offload some of his right ventricular pressure. If he does end up intubated then he will need to be on a dobutamine drip at 2.5 with no titration. 5. Coronary artery disease is likely stable. He ruled out for an AK. No plans for invasive left cardiac catheterization at this time. 6. His LDL goal is less than 55. He is on a statin. 7. His blood pressure is acceptable at this time. Continue carvedilol, lisinopril and amlodipine. 8. The patient is diabetic. He will need aggressive control of his diabetes. Will defer management this to the hospitalist. 8. Further recommendations will be made pending the patient's response to treatment. Thank you for the opportunity to help dissipate in the care of this patient. All recommendations and orders are per Dr. Mendoza.
[2024-06-27] MEDS: 0.9 % SODIUM CHLORIDE 1000ML 500 ML 100 ML IV (17:00)
[2024-06-27] MEDS: humaLOG 100 UNITS/ML 10ML VIAL (SSI) SUBCUT ×2 (17:03→20:18)
--- NOTE | 2024-06-27 17:39 | P.PN_ITS ---
Subjective *Date: 06/27/24 *Time: 17:39 Interval history: Patient appears uncomfortable this morning. Denies chest pain. Alert and oriented. Interactive on exam. Following commands. Afebrile. Initially examined on Vapotherm, satting 85 to 88%. Transitioned to BiPAP. Examined multiple times through the day with improved comfort and tolerance. Improved air movement with BiPAP. Medical Exam Vital signs and Labs for Last 24 Hours: Vital Signs Temp Pulse Pulse Resp BP BP Pulse Ox 06/27/24 17:00 77 20 140/95 H 89 L 06/27/24 16:45 72 17 89 L 06/27/24 16:30 71 90 L 06/27/24 16:15 89 13 90 L 06/27/24 16:00 148/97 H 06/27/24 16:00 98.1 F 83 11 L 148/97 H 91 L 06/27/24 15:45 83 14 91 L 06/27/24 15:30 79 14 90 L 06/27/24 15:24 86 11 L 125/99 H 89 L 06/27/24 15:15 72 13 90 L 06/27/24 15:00 72 17 147/103 H 90 L 06/27/24 14:45 79 11 L 91 L 06/27/24 14:30 100 H 18 90 L 06/27/24 14:19 89 21 135/92 H 89 L 06/27/24 14:19 90 21 135/92 H 90 L 06/27/24 14:19 135/92 H 06/27/24 14:15 82 14 91 L 06/27/24 14:00 83 22 92 L 06/27/24 13:45 88 21 90 L 06/27/24 13:30 74 11 L 91 L 06/27/24 13:15 83 16 92 L 06/27/24 13:00 83 21 93 L 06/27/24 12:45 76 16 91 L 06/27/24 12:44 84 14 91 L 06/27/24 12:30 87 91 L 06/27/24 12:00 100 H 06/27/24 12:00 96 H 24 143/109 H 89 L 06/27/24 11:00 06/27/24 10:00 97 H 20 141/94 H 90 L 06/27/24 09:00 06/27/24 08:34 06/27/24 08:00 88 L 06/27/24 08:00 80 06/27/24 08:00 98.1 F 06/27/24 08:00 88 22 151/93 H 86 L 06/27/24 07:00 06/27/24 06:36 94 H 06/27/24 06:36 95 H 06/27/24 06:36 92 L 06/27/24 06:00 83 20 136/77 93 L 06/27/24 05:00 06/27/24 04:00 98.4 F 62 20 129/73 93 L 06/27/24 04:00 80 06/27/24 03:00 06/27/24 02:01 85 06/27/24 02:01 89 06/27/24 02:00 87 20 147/91 H 95 06/27/24 01:00 06/27/24 00:00 82 23 173/98 H 93 L 06/27/24 00:00 90 06/26/24 23:34 80 26 H 06/26/24 23:34 80 06/26/24 23:34 84 06/26/24 23:00 06/26/24 22:15 91 L 06/26/24 22:00 97 H 20 149/95 H 95 06/26/24 21:00 06/26/24 20:00 99.5 F 06/26/24 20:00 105 H 20 120/69 91 L 06/26/24 20:00 91 L 06/26/24 20:00 100 H 06/26/24 19:00 06/26/24 18:06 95 H 06/26/24 18:06 99 H 06/26/24 18:06 92 L 06/26/24 18:06 92 L 06/26/24 18:00 93 H 22 155/94 H 93 L O2 Del Method O2 Flow Rate FiO2 06/27/24 17:00 06/27/24 16:45 06/27/24 16:30 06/27/24 16:15 06/27/24 16:00 06/27/24 16:00 06/27/24 15:45 06/27/24 15:30 06/27/24 15:24 06/27/24 15:15 06/27/24 15:00 06/27/24 14:45 06/27/24 14:30 06/27/24 14:19 06/27/24 14:19 06/27/24 14:19 06/27/24 14:15 06/27/24 14:00 06/27/24 13:45 06/27/24 13:30 06/27/24 13:15 06/27/24 13:00 06/27/24 12:45 06/27/24 12:44 06/27/24 12:30 BiPAP 06/27/24 12:00 06/27/24 12:00 BiPAP 06/27/24 11:00 BiPAP 06/27/24 10:00 BiPAP 06/27/24 09:00 BiPAP 06/27/24 08:34 100 06/27/24 08:00 Vapotherm 40 100 06/27/24 08:00 06/27/24 08:00 06/27/24 08:00 Vapotherm 40 100 06/27/24 07:00 Vapotherm 40 06/27/24 06:36 06/27/24 06:36 06/27/24 06:36 Vapotherm 40 100 06/27/24 06:00 Vapotherm 40 100 06/27/24 05:00 Vapotherm 40 06/27/24 04:00 Vapotherm 40 100 06/27/24 04:00 06/27/24 03:00 Vapotherm 40 06/27/24 02:01 06/27/24 02:01 06/27/24 02:00 Vapotherm 40 100 06/27/24 01:00 Vapotherm 40 06/27/24 00:00 Vapotherm 40 100 06/27/24 00:00 06/26/24 23:34 06/26/24 23:34 06/26/24 23:34 06/26/24 23:00 Vapotherm 40 06/26/24 22:15 Vapotherm 40 100 06/26/24 22:00 Vapotherm 40 100 06/26/24 21:00 Vapotherm 35 06/26/24 20:00 06/26/24 20:00 Vapotherm 35 70 06/26/24 20:00 Vapotherm 35 70 06/26/24 20:00 06/26/24 19:00 Vapotherm 35 06/26/24 18:06 06/26/24 18:06 06/26/24 18:06 Vapotherm 35 70 06/26/24 18:06 Vapotherm 35 70 06/26/24 18:00 Vapotherm 40 100 Intake and Output 06/27/24 06/27/24 06/27/24 07:59 15:59 23:59 Intake Total 340 / 610 270 / 610 Output Total 0 / 0 0 / 0 0 / 0 Balance 340 / 610 270 / 610 0 / 610 Intake: Intake, Oral Amount 240 / 510 270 / 510 Intake, Total IV Amount 100 / 100 Cefepime HCl 2 gm In 0.9 % 100 / 100 Sodium Chloride 100 ml @ 200 mls/hr IV Q12H [facility] Rx#:[id number] Output: Output, Urine Amount 0 / 0 0 / 0 0 / 0 Other: Number of Voids 0 Number of Unmeasured Voids 2 1 Weight 97.066 kg 97 kg Patient Weight 06/27/24 23:59 Weight 97 kg Laboratory Results - last 24 hr 06/26/24 12:10: SARS-CoV-2 (PCR) Not detected, Influenza Type A (PCR) Not detected, Influenza Type B (PCR) Not detected, RSV (PCR) Not detected, Rhinovirus (PCR) Not detected 06/26/24 16:50: Troponin I < 0.01 06/26/24 17:11: POC Glucose 147 H 06/26/24 20:00: Troponin I < 0.01 06/26/24 20:14: POC Glucose 196 H 06/27/24 03:15: Urine Color Yellow, Urine Appearance Clear, Urine pH 6.0, Ur Specific [place] 1.020, Urine Protein 1+ A, Urine Glucose (UA) Negative, Urine Ketones Negative, Urine Blood Trace-i, Urine Nitrate Negative, Urine Bilirubin Negative, Urine Urobilinogen 0.2, Ur Leukocyte Esterase Negative, Urine RBC Occasional, Urine WBC None, Ur Squamous Epith Cells Occasional, Urine Bacteria None, Hyaline Casts Occasional 06/27/24 05:14: POC Glucose 151 H 06/27/24 06:32: WBC 8.1, RBC 5.85, Hgb 16.9, Hct 57.6 H, MCV 98.5 H, MCH 28.9, MCHC 29.3 L, RDW 16.4, Plt Count 129 L, MPV 10.6 H, Neut % (Auto) 77.2, Lymph % (Auto) 8.9 L, [place] % (Auto) 12.8 H, Eos % (Auto) 0.0 L, Baso % (Auto) 0.2, Neut # (Auto) 6.2, Lymph # (Auto) 0.7, [place] # (Auto) 1.0, Eos # (Auto) 0.0, Baso # (Auto) 0.0, Magnesium 1.7 06/27/24 09:25: Specimen Source Left radial, O2 % 100, ABG pH 7.35, ABG pCO2 9 2.3 H, ABG pO2 57.3 L, ABG HCO3 49.9 H, ABG Total CO2 52.8 H, ABG O2 Saturation 91, ABG Base Excess 24.3 H, Ben Test Acceptable 06/27/24 11:07: POC Glucose 139 H I & O for Labs for Last 24 Hours: Intake & Output 06/24/24 06/25/24 06/26/24 06/27/24 23:59 23:59 23:59 23:59 Intake Total 610 / 610 Output Total 200 / 200 0 / 0 Balance -200 / 140 610 / 610 Weight 97.069 kg 97 kg Constitutional: Present moderate distress, chronically ill appearing, cooperative and agitated Head: Present atraumatic and normocephalic ENT: Present normal exam Neck: Present normal inspection Respiratory: Present accessory muscle use, prolonged expiratory phase and wheezes; Absent rhonchi or crackles Cardiac: Present Regular Rhythm and Tachycardia GI: Present soft and normal bowel sounds; Absent distention or tenderness Extremities: Present normal inspection; Absent edema Skin: Present intact; Absent erythema Neuro: Present Grossly Intact, alert, awake, oriented x 3 and moves all extremities Assessment and Plan *Assessment and plan (1) Acute exacerbation of chronic obstructive pulmonary disease (COPD): Status: Acute Category: Medical Code(s): J44.1 - Chronic obstructive pulmonary disease with (acute) exacerbation (2) Acute respiratory failure with hypoxia: Status: Acute Category: Medical Code(s): J96.01 - Acute respiratory failure with hypoxia (3) Community acquired pneumonia: Status: Acute Qualifiers: Laterality: unspecified laterality Qualified Code(s): J18.9 - Pneumonia, unspecified organism Category: Medical Code(s): J18.9 - Pneumonia, unspecified organism (4) Diabetes mellitus: Status: Acute Qualifiers: Diabetes mellitus type: type 2 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: without nursing home use Diabetes mellitus complication status: without complication Qualified Code(s): E11.9 - Type 2 diabetes mellitus without complications Category: Medical Code(s): E11.9 - Type 2 diabetes mellitus without complications (5) Polycythemia vera: Status: Acute Category: Medical Code(s): D45 - Polycythemia vera (6) Pulmonary emphysema: Status: Acute Qualifiers: Emphysema type: centrilobular Qualified Code(s): J43.2 - Centrilobular emphysema Category: Medical Code(s): J43.9 - Emphysema, unspecified (7) Severe sepsis: Status: Acute Category: Medical Code(s): A41.9 - Sepsis, unspecified organism; R65.20 - Severe sepsis without septic shock (8) RVF (right ventricular failure): Status: Acute Category: Medical Code(s): I50.810 - Right heart failure, unspecified (9) CAD (coronary artery disease): Status: Acute Qualifiers: Coronary Disease-Associated Artery/Lesion type: [place] artery [place] vs. transplanted heart: [place] heart Associated angina: without angina Qualified Code(s): I25.10 - Atherosclerotic heart disease of [place] coronary artery without angina pectoris Category: Medical Code(s): I25.10 - Atherosclerotic heart disease of [place] coronary artery without angina pectoris (10) Hypertension: Status: Acute Qualifiers: Hypertension type: unspecified Qualified Code(s): I10 - Essential (pr imary) hypertension Category: Medical Code(s): I10 - Essential (primary) hypertension (11) HLD (hyperlipidemia): Status: Acute Qualifiers: Hyperlipidemia type: mixed hyperlipidemia Qualified Code(s): E78.2 - Mixed hyperlipidemia Category: Medical Code(s): E78.5 - Hyperlipidemia, unspecified Plan Daniel Kwan is a 59-year-old male with a medical history significant for COPD on 2 L, severe sleep apnea, CAD with stent, hypertension, hyperlipidemia, type 2 diabetes who presents with worsening shortness of breath. He states he has not been taking his medications for many weeks and then he became increasingly short of breath over the past 2 weeks. Denies chest pain. Workup in the ED significant for a compensated ABG, D-dimer 0.85, BNP 1160. CTA chest revealed multifocal pneumonia in bilateral lungs with no evidence of PE. CXR suggests possible volume overload versus pneumonia. Initially on Vapotherm, transition to BiPAP this morning. Continues to require ICU level care. Pulmonology and cardiology assisting with care. Prognosis guarded. Problems addressed as follows: #Acute hypoxic respiratory failure # Severe sepsis #Multifocal community-acquired pneumonia # Acute COPD exacerbation ? CTA chest reveals bilateral multifocal pneumonia. -White count remains normal at 8.1, hemoglobin 17. Repeat CBC, CMP, magnesium ordered for the morning. ? Continue cefepime 2 g every 8 hours and azithromycin 500 mg daily - Continue steroids with methylprednisolone 40 mg IV twice daily ? Follow-up sputum, blood cultures. Blood cultures were not collected before antibiotics were started. - Respiratory panel pending. Transitioned from Vapotherm this morning due to worsening respiratory failure. Initiated on BiPAP. Patient appears more comfortable. Pulmonology assisting with care, discussed case this morning. Will continue BiPAP along with breathing treatments. Patient's ABG from this morning showed pH of 7.35, pCO2 of 92, pO2 of 57. Appears to have compensated respiratory acidosis. Bicarb of 49 on blood gas. -Continue levalbuterol, ipratropium every 4 hours along with Pulmicort twice daily ? Antibiotics as above for pneumonia. ? IV Solu-Medrol 40 mg daily. ? Follow-up respiratory panel. ? VBG reassuring for no acute hypercapnia. #Possible HFpEF exacerbation # CAD, hypertension, hyperlipidemia ? Discussed case with cardiology today, concern for HFpEF. Echo shows hyperdynamic EF of 70%. Moderate dilation of right ventricle with moderate RV dysfunction -Recommend no further diuresis - Coronary artery disease is likely stable. He ruled out for an [place]. No plans for invasive left cardiac catheterization at this time. ? Continue home Farxiga 10 mg. - Continue Plavix 75 mg daily, aspirin 81 mg daily, pressure appropriate at this time we will hold on blood pressure location pending improvement in sepsis #Severe sleep apnea: Patient transitioned to BiPAP today. Showing improvement in his breathing. #Type 2 diabetes ? ACHS glucose checks, LDSSI. ? Continue home Farxiga. -A1c ordered for morning. ICU/Critical care attestation This patient is critically ill with 35 minutes devoted solely to this patient managing life/organ supporting interventions that required physician assessment. This includes time spent making adjustments in ventilator settings, IV fluid administration, titration of pressors, adjustments of medications, discussion of patient with consultants and other care providers as well as updating patient and/or family (if patient by virtue of his/her condition is unable to participate in decision making). This does not include time spent performing separately billed procedures. Time is not concurrent with that of other providers. Full code DVT prophylaxis: Lovenox 40 mg
[2024-06-27 17:46] LABS: POC Glucose,Bedside 161 (70-110)
--- NOTE | 2024-06-27 18:00 | PC.NURSE ---
pt alert and oriented x 4 and remained on Bipap with an oxygen sat between 88%-90% tolerated well. no complaints at this time.
[2024-06-27] MEDS: ATORVASTATIN 40MG TABLET 40 MG PO (20:20)
[2024-06-27 20:22] LABS: POC Glucose,Bedside 154 (70-110)
--- NOTE | 2024-06-27 21:42 | PC.NURSE ---
Pump cleared of 385ml after d/c of IV fluids per order
[2024-06-28] VITALS (265 sets, daily range): BP systolic 88–212; BP diastolic 53–142; PULSE 51–100; RESP 11–24; TEMP 36.5–37.3; O2SAT 82–98; BMI 28.3
[2024-06-28] MEDS: CEFEPIME HCL 2 GM in 0.9 % SODIUM CHLORIDE 100 ML IV ×3 (00:21→16:25)
[2024-06-28] MEDS: LEVALBUTEROL 1.25MG/3ML NEB 1.25 MG IH ×6 (02:20→22:01)
[2024-06-28] MEDS: IPRATROPIUM BROMIDE 0.5 MG/2.5ML SOLUTION IH ×6 (02:20→22:00)
--- NOTE | 2024-06-28 03:04 | XR_ITS ---
PROCEDURE INFORMATION: Exam: XR Chest Exam date and time: 06/28/2024 3:09 AM Age: 59 years old Clinical indication: Device placement; Ett placement (vent status); Additional info: Verify ett placement. TECHNIQUE: Imaging protocol: Radiologic exam of the chest. Views: 1 view. COMPARISON: CT ANGIO CHEST PE PROTOCOL 06/26/2024 4:16 PM FINDINGS: Tubes, catheters and devices: Endotracheal tube projects just above the nano, consider retraction. Enteric tube traverses midline with catheter tip and side fenestration terminating just below the diaphragm, consider advancement. Lungs: Calcified left hilar lymph nodes. Pleural spaces: Blunting of the bilateral costophrenic angles, hazy [id number]-left basilar opacities. Heart/Mediastinum: Unremarkable. No cardiomegaly. Bones/joints: Diffuse degenerative change of the visualized osseous structures. IMPRESSION: 1. Medical devices as above, consider retraction of the endotracheal tube by about 2-3 cm, consider advancement of the enteric tube. 2. Interval appearance of bilateral pleural effusions with likely basilar atelectasis, cannot exclude evolving infection.
[2024-06-28] MEDS: SUCCINYLCHOLINE 20MG/ML 10 ML MDV 150 MG IV (03:05)
[2024-06-28] MEDS: ETOMIDATE 40MG/20ML VIAL 30 MG IV (03:05)
[2024-06-28] MEDS: propofoL 100 ML 34.92 MG IV ×7 (03:12→20:47)
[2024-06-28] MEDS: FENTANYL CITRATE/PF 1,000 MCG in 0.9 % SODIUM CHLORIDE 80 ML 5 MCG IV (03:20)
--- NOTE | 2024-06-28 03:31 | XR_ITS ---
PROCEDURE INFORMATION: Exam: XR Chest Exam date and time: 06/28/2024 3:38 AM Age: 59 years old Clinical indication: Device placement; Other: Verify ett placement; Tube adjusted. TECHNIQUE: Imaging protocol: Radiologic exam of the chest. Views: 1 view. COMPARISON: CR XR CHEST PORTABLE 06/28/2024 3:09 AM FINDINGS: Tubes, catheters and devices: Endotracheal tube projects about the level of the clavicular heads, 8.6 cm from the nano. Enteric tube traverses midline, side fenestration and catheter tip not within field of view. Lungs: Low lung volumes bilaterally. Basilar opacities are again seen. Pleural spaces: Blunting of the bilateral costophrenic angles. Heart/Mediastinum: Left hilar calcified nodes. Vasculature: Atherosclerotic disease of the aortic arch. Bones/joints: Unremarkable. IMPRESSION: 1. Medical devices as above, consider advancement of the endotracheal tube given at the level of the clavicles by about 2 cm. 2. Bilateral pleural effusions and basilar opacities indicative of atelectasis, however difficult to exclude evolving infection.
[2024-06-28] MEDS: FENTANYL 100MCG/2ML VIAL 50 MCG IV ×2 (03:40→04:05)
[2024-06-28] MEDS: MIDAZOLAM 2MG/2ML VIAL 2 MG IM (04:02)
--- NOTE | 2024-06-28 04:06 | P.EN_ITS ---
At approximately 2:40 AM nurse notified me that patient's oxygen saturations were in the low 80s. Upon my evaluation of the patient, he was persistently saturating 82% on essentially max tolerable BiPAP settings. Although patient was not showing signs of hypoxia, patient's respiratory status has deteriorated initially required nasal cannula, then Vapotherm, and now BiPAP and unfortu nately still hypoxic. Lung sounds demonstrated very restricted airway movement, diffuse rhonchi. Patient had just gotten a breathing treatment. Stat ABG was ordered but unable to be obtained in a reasonable time prior to considering intubation. Given his progression, I discussed case with ED provider Dr. Mustafa and made the decision to intubate patient to avoid further clinical deterioration. Patient was alert and oriented and verbalized understanding and consent. Patient was successfully intubated without complications. Patient was very agitated post intubation, requiring 2 boluses of fentanyl 50 mcg and and one Versed 2 mg. Currently requiring propofol 60 mcg/kg/min, fentanyl 150 mcg/h. Will be weaned as tolerated. Personally reviewed CXR and tip of ET tube seems to be about 9 cm above nano. It will be advanced 4 cm. IV Solu-Medrol 40 mg and magnesium 2 mg ordered. Continue levalbuterol and ipratropium every 4 hours, Pulmicort twice a day, IV Solu-Medrol 40 mg twice da jerald. Continue antibiotics for pneumonia per primary team. Patient continues to be hypoxic to 84% in spite of FiO2 100% and PEEP 10 at this time. May benefit from bronchoscopy to evaluate for mucus plugging. Pending pulmonology recommendations are this time.
--- NOTE | 2024-06-28 04:06 | PC.NURSE ---
0240: Patient O2 sats were dropping to 82-83% on bipap RT was called and came to bedside, attempted to change mask to fit patient's face better with no success in increasing O2 sats. was called 0242 order ABG at this time. Came bedside to assess patient. O2 sats remained 83%. consulted with ER physician and decision was made to intubate patient. Patient was agreeable with decision. 30mg Etomidate was ordered and 150mg of Succinylcholine. Vitals prior to intubation were 144/104, HR- 79, O2 sat 84%, RR-18. 0305- Etomidate IV push 0305- Succinylcholine IV push 0306- intubated patient with 7.5 ETT tube, 23 @ teeth. color change at this time 0307- Bilateral breath sounds auscultated 0310- OG placed 18F 60 @ lip 0311-X-Ray at bedside to confirm placement 0312- Orders for Propofol @ 50mcg/kg/min, started to Infuse 0320-Fentanyl drip was ordered and started to infuse 50mcg/kg 0325- Mittens were placed on patient as he was not tolerating vent 0330- Fentanyl push 50mcg was given due to patient fighting the vent per 0340- Fentanyl push 50mcg was given due to patient continuing to fight vent- per 0350- Versed push 2mg was given per
--- NOTE | 2024-06-28 04:06 | [facility].PROCNOTE ---
[facility] Procedure Note Procedure Note:: Endotracheal Intubation Procedure Note INDICATION: Respiratory distress, hypoxia PROCEDURE physicians: Dr. Comer with supervision from Dr. Mustafa CONSENT: During the informed consent discussion regarding the procedure, or treatment, I explained the following to the patient/designee: a. Nature of the procedure or treatment and who will perform the procedure or treatment. b. Necessity for procedure and the possible benefits. c. Risks and complications (most common and serious). d. Alternative treatments and the risks, benefits and side effects of each (including no treatment). e. Likelihood of the patient achieving his/her goals without this procedure and surgery treatment. f. Problems that might occur during the recuperation. g. Conflicts of interest, if any PROCEDURE SUMMARY: A time out was performed. My hands were washed immediately prior to the procedure. Rapid Sequence Intubation was conducted. The patient received 30 mg of etomidate, 150 mg of succinylcholine for adequate paralysis. Cricoid pressure was maintained from time induction agent was given to time of cuff balloon inflation. Using a glide scope and a size _ endotracheal tube with stylet, the patient was intubated on the 1 attempt. The stylet was removed and cuff balloon was inflated. Appropriate endotracheal tube position was confirmed by direct visualization of vocal cord passage, fogging of the tube, CO2 colormetric indicator and symmetric breath sounds. The tube was secured at _ cm at the lips. Post intubation chest x-ray is pending at this time.
[2024-06-28 04:17] LABS: ABG Base Excess 21.3 mmol/L (-2.4-2.3); ABG HCO3 44.8 mmhg (22.0-26.0); ABG Oxygen Saturation 92 % (90-100); ABG PH 7.48 mmol/L (7.35-7.45); ABG PO2 57.6 mmhg (80-100); ABG TCO2 46.7 mmhg (23-27)
[2024-06-28 04:23] LABS: Oxygen 100 %; Tidal Volume 440
[2024-06-28 04:24] LABS: Allen's Test Non Applicable; PEEP 8; Source Right Radial; Vent Rate 20
[2024-06-28 04:25] LABS: ABG PCO2 61.4 mmhg (35.0-45.0)
[2024-06-28] MEDS: METHYLPREDNISOLONE SOD SUCC 40MG VIAL 40 MG IV ×3 (05:00→21:34)
--- NOTE | 2024-06-28 06:07 | XR_ITS ---
PROCEDURE INFORMATION: Exam: XR Chest Exam date and time: 06/28/2024 6:13 AM Age: 59 years old Clinical indication: Device placement; Other: Checking ett advanced placement TECHNIQUE: Imaging protocol: Radiologic exam of the chest. Views: 1 view. COMPARISON: CR XR CHEST PORTABLE 06/28/2024 3:38 AM FINDINGS: Tubes, catheters and devices: Endotracheal tube projects 6.5 cm from the nano. Enteric tube traverses midline, catheter tip and side fenestration not within field of view. Lungs: Improved aeration of the left lower lobe and improved sharpness of the left costophrenic angle. Pleural spaces: Continued blunting of the right costophrenic angle with veil like opacification of the right lower lobe. Heart/Mediastinum: Unremarkable. No cardiomegaly. Bones/joints: Unremarkable. IMPRESSION: 1. Medical devices as above. 2. Right pleural effusion with likely right lower lobe atelectasis, difficult to exclude superimposed infection. 3. Interval improvement in aeration of the left lower lung field and left costophrenic angle.
[2024-06-28 06:09] LABS: Hematocrit 54.2 % (42.0-52.0); Hemoglobin 16.6 g/dL (14.1-18.0); Lymphocytes # 0.5 K/mm3 (0.7-4.5); Lymphocytes % 4.8 % (10-50); Mean Corpuscular HGB Conc 30.6 g/dL (31.8-35.4); Mean Corpuscular Hemoglobin 29.1 pg (27.0-31.2); Mean Corpuscular Volume 94.9 fl (80-94); Mean Platelet Volume 10.3 fl (7.4-10.4); Monocytes % 8.9 % (1.7-9.3); Neutrophils # 9.7 K/mm3 (1.8-7.8); Neutrophils % 85.9 % (37.0-80.0); Platelet Count 152 K/mm3 (142-424); Red Blood Count 5.71 M/mm3 (4.60-6.20); Red Cell Distribution Width 16.1 % (11.5-17.5); White Blood Count 11.2 K/mm3 (4.8-10.8)
[2024-06-28 06:11] LABS: MANUAL DIFFERENTIAL MANUAL DIFFERENTIAL (MANUAL DIFF)
[2024-06-28 06:16] LABS: Alanine Aminotransferase 20 U/L (12-78); Albumin Level 3.4 g/dl (3.5-5.0); Albumin/Globulin Ratio 1.3 (1.1-1.8); Alkaline Phosphatase 93 U/L (38-126); Aspartate Amino Transferase 35 U/L (17-59); Bilirubin,Total 1.8 mg/dl (0.2-1.3); Blood Urea Nitrogen 24 mg/dl (9-20); Calcium 8.4 mg/dl (8.4-10.2); Chloride 88 mmol/L (98-107); Creatinine Clearance Estimated 155 mL/min (50-200); Estimated Glomerular Filt Rate 116 ml/min (>60); GFR (African American) 140 ML/MIN (>60); Globulin 2.7 g/dL (1.3-3.2); Glucose 186 mg/dl (74-100); Magnesium 1.6 mg/dl (1.6-2.3); Sodium 134 mmol/L (136-145); Total Protein,Serum 6.1 g/dl (6.3-8.2)
[2024-06-28 06:23] LABS: Carbon Dioxide 40 mmol/L (22.0-30.0)
[2024-06-28] MEDS: BUDESONIDE 0.5MG/2ML NEB 0.5 MG IH ×2 (06:24→18:04)
--- NOTE | 2024-06-28 06:25 | PC.NURSE ---
Dr. Comer ordered ET tube be advanced from 24cm at the teeth to 26cm at the teeth for hypoxia, SPO2 85%. I did not agree and stated I do not think it should be in that far. Dr. Comer states that this patient has the lowest nano he has ever seen. ET tube placed to 26cm at the teeth, SPO2 84%. Dr. Comer states Pt has good bilateral lung sounds.
[2024-06-28 06:35] LABS: POC Glucose,Bedside 184 (70-110)
[2024-06-28 08:04] LABS: Lymphocytes % 13 % (10-50); Monocytes % 1 % (2-9); Neutrophils % 86 % (42-76); Platelet Estimate Normal; RBC Morphology Normal; Total Cells Counted 100
[2024-06-28 08:51] LABS: Hemoglobin A1C 6.9 % (4.0-6.0)
--- NOTE | 2024-06-28 09:07 | XR_ITS ---
FINAL REPORT CLINICAL HISTORY: respiratory distress COMPARISON: 4 hours prior FINDINGS: One frontal view of the chest was obtained. An endotracheal tube is present. The heart size is normal. The mediastinum is normal. There is mild basilar atelectasis, which has improved from the prior exam. There is no focal infiltrate or edema. There are no pleural effusions. There is no pneumothorax. There is no osseous abnormality. IMPRESSION: Interval improvement of basilar atelectasis. Reviewed, Interpreted and Dictated by Ryan Moya MD Transcribed by Rachel Garcia Authenticated and [facility]
[2024-06-28] MEDS: FENTANYL CITRATE/PF 1,000 MCG in 0.9 % SODIUM CHLORIDE 80 ML 15 MCG IV ×3 (09:25→23:10)
--- NOTE | 2024-06-28 09:29 | EXP.ACUTE.PN ---
Subjective *Date: 06/28/24 *Time: 19:58 Interval history: Patient had respiratory decline overnight, intubated early this morning. Tolerating increased vent settings. Significant mucus production. Doing better with deep suction. Medical Exam Vital signs and Labs for Last 24 Hours: Vital Signs Temp Pulse Pulse Resp BP BP Pulse Ox 06/28/24 08:48 104/64 L 06/28/24 08:48 69 97 06/28/24 08:46 67 97 06/28/24 08:46 105/66 L 06/28/24 08:45 66 97 06/28/24 08:44 104/64 L 06/28/24 08:44 68 97 06/28/24 08:42 104/65 L 06/28/24 08:42 68 97 06/28/24 08:40 106/65 L 06/28/24 08:40 68 97 06/28/24 08:38 106/66 L 06/28/24 08:38 67 97 06/28/24 08:36 107/66 L 06/28/24 08:36 70 97 06/28/24 08:34 106/67 L 06/28/24 08:34 69 97 06/28/24 08:32 107/65 L 06/28/24 08:32 70 97 06/28/24 08:30 106/67 L 06/28/24 08:30 68 97 06/28/24 08:28 109/65 L 06/28/24 08:28 68 97 06/28/24 08:26 110/70 06/28/24 08:26 68 97 06/28/24 08:24 66 97 06/28/24 08:24 107/69 L 06/28/24 08:22 71 97 06/28/24 08:22 109/69 L 06/28/24 08:20 112/70 06/28/24 08:20 72 96 06/28/24 08:18 113/69 06/28/24 08:18 70 96 06/28/24 08:16 71 96 06/28/24 08:16 102/72 L 06/28/24 08:15 69 96 06/28/24 08:14 114/72 06/28/24 08:14 68 96 06/28/24 08:12 115/72 06/28/24 08:12 64 96 06/28/24 08:12 20 96 06/28/24 08:10 121/77 06/28/24 08:10 74 95 06/28/24 08:08 115/70 06/28/24 08:08 71 95 06/28/24 08:06 71 95 06/28/24 08:06 112/70 06/28/24 08:04 117/75 06/28/24 08:04 66 95 06/28/24 08:02 68 95 06/28/24 08:02 98.5 F 68 18 127/87 95 06/28/24 06:06 103/69 L 06/28/24 06:06 71 82 L 06/28/24 06:04 74 82 L 06/28/24 06:04 106/66 L 06/28/24 06:02 110/71 06/28/24 06:00 110/70 06/28/24 06:00 74 110/70 83 L 06/28/24 05:58 111/72 06/28/24 05:58 72 85 L 06/28/24 05:56 70 87 L 06/28/24 05:56 120/80 06/28/24 05:54 64 90 L 06/28/24 05:54 137/93 H 06/28/24 05:52 129/85 06/28/24 05:52 67 90 L 06/28/24 05:51 132/94 H 06/28/24 05:51 68 86 L 06/28/24 05:48 117/78 06/28/24 05:48 70 87 L 06/28/24 05:46 117/74 06/28/24 05:46 73 86 L 06/28/24 05:45 73 87 L 06/28/24 05:44 113/75 06/28/24 05:44 75 87 L 06/28/24 05:42 111/71 06/28/24 05:42 75 87 L 06/28/24 05:40 112/68 06/28/24 05:40 75 87 L 06/28/24 05:38 111/70 06/28/24 05:38 75 87 L 06/28/24 05:36 112/72 06/28/24 05:36 74 87 L 06/28/24 05:34 112/71 06/28/24 05:34 72 87 L 06/28/24 05:32 70 87 L 06/28/24 05:32 112/73 06/28/24 05:30 71 87 L 06/28/24 05:30 112/75 06/28/24 05:28 112/75 06/28/24 05:28 72 87 L 06/28/24 05:26 112/71 06/28/24 05:26 71 87 L 06/28/24 05:24 114/76 06/28/24 05:24 71 87 L 06/28/24 05:22 118/78 06/28/24 05:22 71 88 L 06/28/24 05:20 66 89 L 06/28/24 05:20 131/87 06/28/24 05:18 74 90 L 06/28/24 05:18 125/89 06/28/24 05:16 111/71 06/28/24 05:16 70 87 L 06/28/24 05:15 72 87 L 06/28/24 05:14 70 87 L 06/28/24 05:14 111/69 06/28/24 05:12 72 87 L 06/28/24 05:12 109/70 L 06/28/24 05:10 110/70 06/28/24 05:10 72 87 L 06/28/24 05:08 110/71 06/28/24 05:08 72 87 L 06/28/24 05:06 111/06/28/24 05:06 72 88 L 06/28/24 05:04 110/68 06/28/24 05:04 74 88 L 06/28/24 05:02 11106/28/24 05:02 72 88 L 06/28/24 05:00 111/68 06/28/24 05:00 74 111/68 88 L 06/28/24 05:00 06/28/24 04:58 112/69 06/28/24 04:58 73 88 L 06/28/24 04:56 109/72 L 06/28/24 04:56 74 88 L 06/28/24 04:54 112/71 06/28/24 04:54 74 88 L 06/28/24 04:52 114/72 06/28/24 04:52 74 88 L 06/28/24 04:50 116/75 06/28/24 04:50 74 89 L 06/28/24 04:48 72 89 L 06/28/24 04:48 119/77 06/28/24 04:46 120/81 06/28/24 04:46 76 89 L 06/28/24 04:45 77 89 L 06/28/24 04:44 111/73 06/28/24 04:44 80 89 L 06/28/24 04:42 77 89 L 06/28/24 04:42 113/74 06/28/24 04:40 78 89 L 06/28/24 04:40 112/71 06/28/24 04:38 114/71 06/28/24 04:38 78 89 L 06/28/24 04:36 76 89 L 06/28/24 04:36 113/71 06/28/24 04:34 115/74 06/28/24 04:34 79 89 L 06/28/24 04:32 112/71 06/28/24 04:32 78 90 L 06/28/24 04:30 114/75 06/28/24 04:30 78 90 L 06/28/24 04:28 124/79 06/28/24 04:28 74 90 L 06/28/24 04:26 116/80 06/28/24 04:26 85 89 L 06/28/24 04:24 115/76 06/28/24 04:24 80 89 L 06/28/24 04:22 119/78 06/28/24 04:22 78 90 L 06/28/24 04:20 112/75 06/28/24 04:20 79 89 L 06/28/24 04:18 119/76 06/28/24 04:18 82 90 L 06/28/24 04:16 112/74 06/28/24 04:16 82 89 L 06/28/24 04:15 83 90 L 06/28/24 04:14 79 91 L 06/28/24 04:14 125/81 06/28/24 04:12 83 89 L 06/28/24 04:12 120/78 06/28/24 04:10 124/83 06/28/24 04:10 83 90 L 06/28/24 04:08 128/83 06/28/24 04:08 83 90 L 06/28/24 04:06 85 91 L 06/28/24 04:06 123/81 06/28/24 04:04 115/73 06/28/24 04:04 82 90 L 06/28/24 04:02 115/74 06/28/24 04:02 97.7 F 84 115/74 90 L 06/28/24 04:00 80 06/28/24 04:00 75 92 L 06/28/24 03:30 24 91 L 06/28/24 03:16 188/129 H 06/28/24 03:16 86 188/129 H 89 L 06/28/24 03:15 82 91 L 06/28/24 03:14 206/112 H 06/28/24 03:14 86 91 L 06/28/24 03:12 87 93 L 06/28/24 03:12 212/118 H 06/28/24 03:10 88 93 L 06/28/24 03:10 192/118 H 06/28/24 03:08 202/119 H 06/28/24 03:08 95 H 91 L 06/28/24 03:07 206/142 H 06/28/24 03:07 100 H 18 87 L 06/28/24 03:04 157/97 H 06/28/24 03:04 72 15 83 L 06/28/24 03:03 144/104 H 06/28/24 03:03 75 86 L 06/28/24 03:00 06/28/24 03:00 144/95 H 06/28/24 03:00 76 17 86 L 06/28/24 02:58 143/95 H 06/28/24 02:58 76 14 86 L 06/28/24 02:56 149/101 H 06/28/24 02:56 77 84 L 06/28/24 02:54 150/95 H 06/28/24 02:54 78 11 L 85 L 06/28/24 02:52 89 18 85 L 06/28/24 02:52 165/100 H 06/28/24 02:45 71 18 84 L 06/28/24 02:30 70 12 86 L 06/28/24 02:20 87 06/28/24 02:20 86 06/28/24 02:15 80 17 88 L 06/28/24 02:00 06/28/24 02:00 144/91 H 06/28/24 02:00 83 17 144/91 H 88 L 06/28/24 02:00 69 16 144/91 H 88 L 06/28/24 01:45 68 18 88 L 06/28/24 01:30 84 16 84 L 06/28/24 01:15 72 22 87 L 06/28/24 01:00 96 H 24 155/99 H 88 L 06/28/24 01:00 155/99 H 06/28/24 00:55 06/28/24 00:45 67 22 87 L 06/28/24 00:30 72 20 93 L 06/28/24 00:15 66 11 L 87 L 06/28/24 00:00 91 L 06/28/24 00:00 97.9 F 06/28/24 00:00 75 06/28/24 00:00 160/93 H 06/28/24 00:00 69 12 160/93 H 89 L 06/27/24 23:45 80 13 88 L 06/27/24 23:30 66 14 88 L 06/27/24 23:15 83 14 90 L 06/27/24 23:00 68 15 125/73 91 L 06/27/24 23:00 125/73 06/27/24 23:00 06/27/24 22:45 74 21 90 L 06/27/24 22:30 79 16 93 L 06/27/24 22:15 64 22 93 L 06/27/24 22:06 88 06/27/24 22:06 87 06/27/24 22:01 120/73 06/27/24 22:01 75 22 120/73 93 L 06/27/24 22:00 68 22 94 L 06/27/24 22:00 06/27/24 21:45 66 22 93 L 06/27/24 21:30 77 21 93 L 06/27/24 21:15 65 22 92 L 06/27/24 21:00 75 22 148/97 H 88 L 06/27/24 21:00 148/97 H 06/27/24 21:00 06/27/24 20:45 106 H 14 83 L 06/27/24 20:30 83 14 91 L 06/27/24 20:15 76 90 L 06/27/24 20:00 22 88 L 06/27/24 20:00 85 06/27/24 20:00 145/96 H 06/27/24 20:00 97.1 F L 70 145/96 H 90 L 06/27/24 19:45 78 91 L 06/27/24 19:30 06/27/24 19:30 69 90 L 06/27/24 19:15 85 90 L 06/27/24 19:00 155/99 H 06/27/24 19:00 92 H 90 L 06/27/24 18:56 85 06/27/24 18:56 87 06/27/24 18:56 91 L 06/27/24 18:00 06/27/24 18:00 74 132/78 91 L 06/27/24 17:00 06/27/24 17:00 77 20 140/95 H 89 L 06/27/24 16:45 72 17 89 L 06/27/24 16:30 71 90 L 06/27/24 16:15 89 13 90 L 06/27/24 16:00 89 06/27/24 16:00 88 90 L 06/27/24 16:00 148/97 H 06/27/24 16:00 98.1 F 83 11 L 148/97 H 91 L 06/27/24 15:45 83 14 91 L 06/27/24 15:30 79 14 90 L 06/27/24 15:24 86 11 L 125/99 H 89 L 06/27/24 15:15 72 13 90 L 06/27/24 15:00 06/27/24 15:00 72 17 147/103 H 90 L 06/27/24 14:45 79 11 L 91 L 06/27/24 14:30 100 H 18 90 L 06/27/24 14:19 89 21 135/92 H 89 L 06/27/24 14:19 90 21 135/92 H 90 L 06/27/24 14:19 135/92 H 06/27/24 14:15 82 14 91 L 06/27/24 14:00 83 22 92 L 06/27/24 13:45 88 21 90 L 06/27/24 13:30 74 11 L 91 L 06/27/24 13:15 83 16 92 L 06/27/24 13:00 83 21 93 L 06/27/24 12:45 76 16 91 L 06/27/24 12:44 84 14 91 L 06/27/24 12:43 80 06/27/24 12:30 87 91 L 06/27/24 12:00 100 H 06/27/24 12:00 96 H 24 143/109 H 89 L 06/27/24 11:00 06/27/24 10:00 97 H 20 141/94 H 90 L O2 Del Method FiO2 06/28/24 08:48 06/28/24 08:48 06/28/24 08:46 06/28/24 08:46 06/28/24 08:45 06/28/24 08:44 06/28/24 08:44 06/28/24 08:42 06/28/24 08:42 06/28/24 08:40 06/28/24 08:40 06/28/24 08:38 06/28/24 08:38 06/28/24 08:36 06/28/24 08:36 06/28/24 08:34 06/28/24 08:34 06/28/24 08:32 06/28/24 08:32 06/28/24 08:30 06/28/24 08:30 06/28/24 08:28 06/28/24 08:28 06/28/24 08:26 06/28/24 08:26 06/28/24 08:24 06/28/24 08:24 06/28/24 08:22 06/28/24 08:22 06/28/24 08:20 06/28/24 08:20 06/28/24 08:18 06/28/24 08:18 06/28/24 08:16 06/28/24 08:16 06/28/24 08:15 06/28/24 08:14 06/28/24 08:14 06/28/24 08:12 06/28/24 08:12 06/28/24 08:12 100 06/28/24 08:10 06/28/24 08:10 06/28/24 08:08 06/28/24 08:08 06/28/24 08:06 06/28/24 08:06 06/28/24 08:04 06/28/24 08:04 06/28/24 08:02 06/28/24 08:02 06/28/24 06:06 06/28/24 06:06 06/28/24 06:04 06/28/24 06:04 06/28/24 06:02 06/28/24 06:00 06/28/24 06:00 06/28/24 05:58 06/28/24 05:58 06/28/24 05:56 06/28/24 05:56 06/28/24 05:54 06/28/24 05:54 06/28/24 05:52 06/28/24 05:52 06/28/24 05:51 06/28/24 05:51 06/28/24 05:48 06/28/24 05:48 06/28/24 05:46 06/28/24 05:46 06/28/24 05:45 06/28/24 05:44 06/28/24 05:44 06/28/24 05:42 06/28/24 05:42 06/28/24 05:40 06/28/24 05:40 06/28/24 05:38 06/28/24 05:38 06/28/24 05:36 06/28/24 05:36 06/28/24 05:34 06/28/24 05:34 06/28/24 05:32 06/28/24 05:32 06/28/24 05:30 06/28/24 05:30 06/28/24 05:28 06/28/24 05:28 06/28/24 05:26 06/28/24 05:26 06/28/24 05:24 06/28/24 05:24 06/28/24 05:22 06/28/24 05:22 06/28/24 05:20 06/28/24 05:20 06/28/24 05:18 06/28/24 05:18 06/28/24 05:16 06/28/24 05:16 06/28/24 05:15 06/28/24 05:14 06/28/24 05:14 06/28/24 05:12 06/28/24 05:12 06/28/24 05:10 06/28/24 05:10 06/28/24 05:08 06/28/24 05:08 06/28/24 05:06 06/28/24 05:06 06/28/24 05:04 06/28/24 05:04 06/28/24 05:02 06/28/24 05:02 06/28/24 05:00 06/28/24 05:00 06/28/24 05:00 Mechanical Ventilation 06/28/24 04:58 06/28/24 04:58 06/28/24 04:56 06/28/24 04:56 06/28/24 04:54 06/28/24 04:54 06/28/24 04:52 06/28/24 04:52 06/28/24 04:50 06/28/24 04:50 06/28/24 04:48 06/28/24 04:48 06/28/24 04:46 06/28/24 04:46 06/28/24 04:45 06/28/24 04:44 06/28/24 04:44 06/28/24 04:42 06/28/24 04:42 06/28/24 04:40 06/28/24 04:40 06/28/24 04:38 06/28/24 04:38 06/28/24 04:36 06/28/24 04:36 06/28/24 04:34 06/28/24 04:34 06/28/24 04:32 06/28/24 04:32 06/28/24 04:30 06/28/24 04:30 06/28/24 04:28 06/28/24 04:28 06/28/24 04:26 06/28/24 04:26 06/28/24 04:24 06/28/24 04:24 06/28/24 04:22 06/28/24 04:22 06/28/24 04:20 06/28/24 04:20 06/28/24 04:18 06/28/24 04:18 06/28/24 04:16 06/28/24 04:16 06/28/24 04:15 06/28/24 04:14 06/28/24 04:14 06/28/24 04:12 06/28/24 04:12 06/28/24 04:10 06/28/24 04:10 06/28/24 04:08 06/28/24 04:08 06/28/24 04:06 06/28/24 04:06 06/28/24 04:04 06/28/24 04:04 06/28/24 04:02 06/28/24 04:02 06/28/24 04:00 06/28/24 04:00 Mechanical Ventilation 06/28/24 03:30 100 06/28/24 03:16 06/28/24 03:16 06/28/24 03:15 06/28/24 03:14 06/28/24 03:14 06/28/24 03:12 06/28/24 03:12 06/28/24 03:10 06/28/24 03:10 06/28/24 03:08 06/28/24 03:08 06/28/24 03:07 06/28/24 03:07 06/28/24 03:04 06/28/24 03:04 06/28/24 03:03 06/28/24 03:03 06/28/24 03:00 Mechanical Ventilation 06/28/24 03:00 06/28/24 03:00 06/28/24 02:58 06/28/24 02:58 06/28/24 02:56 06/28/24 02:56 06/28/24 02:54 06/28/24 02:54 06/28/24 02:52 06/28/24 02:52 06/28/24 02:45 06/28/24 02:30 06/28/24 02:20 06/28/24 02:20 06/28/24 02:15 06/28/24 02:00 100 06/28/24 02:00 06/28/24 02:00 06/28/24 02:00 06/28/24 01:45 06/28/24 01:30 06/28/24 01:15 06/28/24 01:00 06/28/24 01:00 06/28/24 00:55 BiPAP 06/28/24 00:45 06/28/24 00:30 06/28/24 00:15 06/28/24 00:00 BiPAP 100 06/28/24 00:00 06/28/24 00:00 06/28/24 00:00 06/28/24 00:00 06/27/24 23:45 06/27/24 23:30 06/27/24 23:15 06/27/24 23:00 06/27/24 23:00 06/27/24 23:00 BiPAP 06/27/24 22:45 06/27/24 22:30 06/27/24 22:15 06/27/24 22:06 06/27/24 22:06 06/27/24 22:01 06/27/24 22:01 06/27/24 22:00 06/27/24 22:00 100 06/27/24 21:45 06/27/24 21:30 06/27/24 21:15 06/27/24 21:00 06/27/24 21:00 06/27/24 21:00 BiPAP 06/27/24 20:45 06/27/24 20:30 06/27/24 20:15 06/27/24 20:00 BiPAP 06/27/24 20:00 06/27/24 20:00 06/27/24 20:00 06/27/24 19:45 06/27/24 19:30 BiPAP 06/27/24 19:30 06/27/24 19:15 06/27/24 19:00 06/27/24 19:00 06/27/24 18:56 06/27/24 18:56 06/27/24 18:56 BiPAP 100 06/27/24 18:00 100 06/27/24 18:00 06/27/24 17:00 BiPAP 06/27/24 17:00 06/27/24 16:45 06/27/24 16:30 06/27/24 16:15 06/27/24 16:00 06/27/24 16:00 BiPAP 06/27/24 16:00 06/27/24 16:00 06/27/24 15:45 06/27/24 15:30 06/27/24 15:24 06/27/24 15:15 06/27/24 15:00 BiPAP 06/27/24 15:00 06/27/24 14:45 06/27/24 14:30 06/27/24 14:19 06/27/24 14:19 06/27/24 14:19 06/27/24 14:15 06/27/24 14:00 06/27/24 13:45 06/27/24 13:30 06/27/24 13:15 06/27/24 13:00 06/27/24 12:45 06/27/24 12:44 06/27/24 12:43 06/27/24 12:30 BiPAP 06/27/24 12:00 06/27/24 12:00 BiPAP 06/27/24 11:00 BiPAP 06/27/24 10:00 BiPAP Intake and Output 06/27/24 06/28/24 06/28/24 23:59 07:59 15:59 Intake Total 485 / 1095 189.304 / 189.304 Output Total 0 / 0 430 / 430 Balance 485 / 1095 -240.696 / -240.696 Intake: Intake, Total IV Amount 485 / 585 189.304 / 189.304 Cefepime HCl 2 gm In 0.9 % 485 / 585 100 / 100 Sodium Chloride 100 ml @ 200 mls/hr IV Q12H [facility] Rx#:[id number] Output: Output, Urine Amount 0 / 0 400 / 400 Output, Urine Amount (Catheter) Muhammad Other: Number of Unmeasured Voids 1 Weight 94.982 kg Patient Weight 06/28/24 23:59 Weight 94.982 kg Laboratory Results - last 24 hr 06/26/24 12:10: SARS-CoV-2 (PCR) Not detected, Influenza Type A (PCR) Not detected, Influenza Type B (PCR) Not detected, RSV (PCR) Not detected, Rhinovirus (PCR) Not detected 06/26/24 20:14: POC Glucose 196 H 06/27/24 05:14: POC Glucose 151 H 06/27/24 09:25: Specimen Source Left radial, O2 % 100, ABG pH 7.35, ABG pCO2 92.3 H, ABG pO2 57.3 L, ABG HCO3 49.9 H, ABG Total CO2 52.8 H, ABG O2 Saturation 91, ABG Base Excess 24.3 H, Ben Test Acceptable 06/27/24 11:07: POC Glucose 139 H 06/27/24 16:51: POC Glucose 161 H 06/27/24 20:14: POC Glucose 154 H 06/28/24 04:08: Specimen Source Right radial, O2 % 100, ABG pH 7.48 H, ABG pCO2 61.4 H, ABG pO2 57.6 L, ABG HCO3 44.8 H, ABG Total CO2 46.7 H, ABG O2 Saturation 92, ABG Base Excess 21.3 H, Bne Test Non applicable, Vent Rate 20, Tidal Volume 440, PEEP 8 06/28/24 05:31: WBC 11.2 H D, RBC 5.71, Hgb 16.6, Hct 54.2 H, MCV 94.9 H, MCH 29.1, MCHC 30.6 L, RDW 16.1, Plt Count 152, MPV 10.3, Neut % (Auto) 85.9 H, Lymph % (Auto) 4.8 L, [place] % (Auto) 8.9, Eos % (Auto) 0.0 L, Baso % (Auto) 0.0 L, Neut # (Auto) 9.7 H, Lymph # (Auto) 0.5 L, [place] # (Auto) 1.0, Eos # (Auto) 0.0, Baso # (Auto) 0.0, Total Counted 100, Neutrophils % (Manual) 86 H, Lymphocytes % (Manual) 13, Monocytes % (Manual) 1 L, Platelet Estimate Normal, RBC Morphology Normal, Sodium 134 L, Potassium 4.0, Chloride 88 L, Carbon Dioxide 40 H, Anion Gap 10.0, BUN 24 H D, Creatinine 0.70, Estimated Creat Clear 155, Estimated GFR 116, Est GFR ( Amer) 140, Glucose 186 H, Hemoglobin A1c 6.9 H, Calcium 8.4, Magnesium 1.6, Total Bilirubin 1.8 H, AST 35, ALT 20, Alkaline Phosphatase 93, Total Protein 6.1 L, Albumin 3.4 L, Globulin 2.7, Albumin/Globulin Ratio 1.3 06/28/24 06:28: POC Glucose 184 H I & O for Labs for Last 24 Hours: Intake & Output 06/25/24 06/26/24 06/27/24 06/28/24 23:59 23:59 23:59 23:59 Intake Total 1095 / 1095 189.304 / 189.304 Output Total 200 / 200 0 / 0 430 / 430 Balance -200 / 140 1095 / 1095 -240.696 / -240.696 Weight 97.069 kg 97 kg 94.982 kg Microbiology Reports for the Last 24 Hours: Microbiology 06/28/24 04:01 Sputum - Expectorated Sputum Gram Stain - Final 06/26/24 23:28 Blood Blood Culture - Preliminary NO GROWTH AFTER 24 HOURS 06/26/24 23:18 Blood Blood Culture - Preliminary NO GROWTH AFTER 24 HOURS Constitutional: Present mild distress, chronically ill appearing and somnolent Head: Present atraumatic and normocephalic ENT: Present normal exam Comment:: ET tube in place, OG in place Neck: Present normal inspection Respiratory: Present patient mechanically ventilated, prolonged expiratory phase and wheezes; Absent respiratory distress, rhonchi or crackles Cardiac: Present Reg Rate and Rhythm GI: Present soft and normal bowel sounds; Absent distention or tenderness Extremities: Present normal inspection; Absent edema Skin: Present intact; Absent erythema Neuro: Present moves all extremities (Spontaneous); Absent alert, awake or oriented x 3 Comment:: Sedated Assessment and Plan *Assessment and plan (1) Severe sepsis: Status: Acute Category: Medical Code(s): A41.9 - Sepsis, unspecified organism; R65.20 - Severe sepsis without septic shock (2) Acute respiratory failure with hypoxia: Status: Acute Category: Medical Code(s): J96.01 - Acute respiratory failure with hypoxia (3) Acute exacerbation of chronic obstructive pulmonary disease (COPD): Status: Acute Category: Medical Code(s): J44.1 - Chronic obstructive pulmonary disease with (acute) exacerbation (4) Community acquired pneumonia: Status: Acute Qualifiers: Laterality: unspecified laterality Qualified Code(s): J18.9 - Pneumonia, unspecified organism Category: Medical Code(s): J18.9 - Pneumonia, unspecified organism (5) Diabetes mellitus: Status: Acute Qualifiers: Diabetes mellitus type: type 2 Diabetes mellitus salvage determiner insulin use: without salvage determiner use Diabetes mellitus complication status: without complication Qualified Code(s): E11.9 - Type 2 diabetes mellitus without complications Category: Medical Code(s): E11.9 - Type 2 diabetes mellitus without complications (6) Polycythemia vera: Status: Acute Category: Medical Code(s): D45 - Polycythemia vera (7) Pulmonary emphysema: Status: Acute Qualifiers: Emphysema type: centrilobular Qualified Code(s): J43.2 - Centrilobular emphysema Category: Medical Code(s): J43.9 - Emphysema, unspecified (8) RVF (right ventricular failure): Status: Acute Category: Medical Code(s): I50.810 - Right heart failure, unspecified (9) CAD (coronary artery disease): Status: Acute Qualifiers: Coronary Disease-Associated Artery/Lesion type: [place] artery [place] vs. transplanted heart: [place] heart Associated angina: without angina Qualified Code(s): I25.10 - Atherosclerotic heart disease of [place] coronary artery without angina pectoris Category: Medical Code(s): I25.10 - Atherosclerotic heart disease of [place] coronary artery without angina pectoris (10) Hypertension: Status: Acute Qualifiers: Hypertension type: unspecified Qualified Code(s): I10 - Essential (primary) hypertension Category: Medical Code(s): I10 - Essential (primary) hypertension (11) HLD (hyperlipidemia): Status: Acute Qualifiers: Hyperlipidemia type: mixed hyperlipidemia Qualified Code(s): E78.2 - Mixed hyperlipidemia Category: Medical Code(s): E78.5 - Hyperlipidemia, unspecified Plan Daniel Kwan is a 59-year-old male with a medical history significant for COPD on 2 L, severe sleep apnea, CAD with stent, hypertension, hyperlipidemia, type 2 diabetes who presents with worsening shortness of breath. He states he has not been taking his medications for many weeks and then he became increasingly short of breath over the past 2 weeks. Denies chest pain. Workup in the ED significant for a compensated ABG, D-dimer 0.85, BNP 1160. CTA chest revealed multifocal pneumonia in bilateral lungs with no evidence of PE. CXR suggests possible volume overload versus pneumonia. Initially on Vapotherm, transitioned to BiPAP with necessitation antedate overnight. Doing better on ventilator. Pulmonology assisting with management. Cardiology assisting with care. Continues to require ICU level care. Prognosis guarded. Problems addressed as follows: #Acute hypoxic respiratory failure # Severe sepsis #Multifocal community-acquired pneumonia # Acute COPD exacerbation ? CTA chest on admission revealed bilateral multifocal pneumonia. -White count 11. Hemoglobin 16. Repeat CBC, CMP, magnesium ordered for the morning. ? Continue cefepime 2 g every 8 hours and azithromycin 500 mg daily - Continue steroids with methylprednisolone 40 mg IV twice daily ? Follow-up sputum, blood cultures. Blood cultures were not collected before antibiotics were started. - Continue levalbuterol, ipratropium every 4 hours along with Pulmicort twice daily - Patient intubated overnight. Discussed case with pulmonology today, continue ventilator support. PEEP increased to 14, will decrease if tolerates. FiO2 100%. -Continue analgo-sedation with fentanyl and propofol. #Possible HFpEF exacerbation # CAD, hypertension, hyperlipidemia ? Discussed case with cardiology today, concern for HFpEF. Echo shows hyperdynamic EF of 70%. Moderate dilation of right ventricle with moderate RV dysfunction -Recommend no further diuresis -As patient is intubated, recommend initiating dobutamine. Blood pressure doing well with pressures of 117/67. - Coronary artery disease is likely stable. He ruled out for an NC. No plans for invasive left cardiac catheterization at this time. ? Continue home Farxiga 10 mg. - Continue Plavix 75 mg daily, aspirin 81 mg daily, pressure appropriate at this time we will hold on blood pressure location pending improvement in sepsis #Severe sleep apnea: Patient transitioned to BiPAP today. Showing improvement in his breathing. #Type 2 diabetes ? ACHS glucose checks, LDSSI. ? Continue home Farxiga. -A1c 6.9 ICU/Critical care attestation This patient is critically ill with 35 minutes devoted solely to this patient managing life/organ supporting interventions that required physician assessment. This includes time spent making adjustments in ventilator settings, IV fluid administration, titration of pressors, adjustments of medications, discussion of patient with consultants and other care providers as well as updating patient and/or family (if patient by virtue of his/her condition is unable to participate in decision making). This does not include time spent performing separately billed procedures. Time is not concurrent with that of other providers. Full code DVT prophylaxis: Lovenox 40 mg
[2024-06-28] MEDS: CLOPIDOGREL 75MG TAB 75 MG PO (09:40)
[2024-06-28] MEDS: ASPIRIN EC 81MG TABLET 81 MG PO (09:40)
[2024-06-28] MEDS: ENOXAPARIN 40MG/0.4ML SYRINGE 40 MG SUBCUT (09:44)
[2024-06-28] MEDS: MAGNESIUM SULFATE IN WATER 2 GM/50 ML PIGGYBACK IV (09:59)
[2024-06-28] MEDS: DOBUTAMINE HCL/D5W 250 ML 7.12 MG IV (10:12)
--- NOTE | 2024-06-28 11:04 | P.PN_ITS ---
Subjective *Date: 06/28/24 *Time: 13:00 Pulmonology Exam Inpatient Vital signs and Labs for Last 24 Hours: Temp Pulse Resp BP Pulse Ox O2 Del Method O2 Flow Rate 98.5 F 71 20 90/55 L 90 L Mechanical Ventilation 40 06/28/24 08:02 06/28/24 10:26 06/28/24 08:12 06/28/24 10:26 06/28/24 10:26 06/28/24 05:00 06/27/24 08:00 FiO2 100 06/28/24 08:12 Laboratory Results - last 24 hr 06/26/24 12:10: SARS-CoV-2 (PCR) Not detected, Influenza Type A (PCR) Not detected, Influenza Type B (PCR) Not detected, RSV (PCR) Not detected, Rhinovirus (PCR) Not detected 06/26/24 20:14: POC Glucose 196 H 06/27/24 05:14: POC Glucose 151 H 06/27/24 11:07: POC Glucose 139 H 06/27/24 16:51: POC Glucose 161 H 06/27/24 20:14: POC Glucose 154 H 06/28/24 04:08: Specimen Source Right radial, O2 % 100, ABG pH 7.48 H, ABG pCO2 61.4 H, ABG pO2 57.6 L, ABG HCO3 44.8 H, ABG Total CO2 46.7 H, ABG O2 Saturation 92, ABG Base Excess 21.3 H, Ben Test Non applicable, Vent Rate 20, Tidal Volume 440, PEEP 8 06/28/24 05:31: WBC 11.2 H D, RBC 5.71, Hgb 16.6, Hct 54.2 H, MCV 94.9 H, MCH 29.1, MCHC 30.6 L, RDW 16.1, Plt Count 152, MPV 10.3, Neut % (Auto) 85.9 H, Lymph % (Auto) 4.8 L, [place] % (Auto) 8.9, Eos % (Auto) 0.0 L, Baso % (Auto) 0.0 L , Neut # (Auto) 9.7 H, Lymph # (Auto) 0.5 L, [place] # (Auto) 1.0, Eos # (Auto) 0.0, Baso # (Auto) 0.0, Total Counted 100, Neutrophils % (Manual) 86 H, Lymphocytes % (Manual) 13, Monocytes % (Manual) 1 L, Platelet Estimate Normal, RBC Morphology Normal, Sodium 134 L, Potassium 4.0, Chloride 88 L, Carbon Dioxide 40 H, Anion Gap 10.0, BUN 24 H D, Creatinine 0.70, Estimated Creat Clear 155, Estimated GFR 116, Est GFR ( Amer) 140, Glucose 186 H, Hemoglobin A1c 6.9 H, Calcium 8.4, Magnesium 1.6, Total Bilirubin 1.8 H, AST 35, ALT 20, Alkaline Phosphatase 93, Total Protein 6.1 L, Albumin 3.4 L, Globulin 2.7, Albumin/Globulin Ratio 1.3 06/28/24 06:28: POC Glucose 184 H I & O for Labs for Last 24 Hours: Intake & Output 06/25/24 06/26/24 06/27/24 06/28/24 23:59 23:59 23:59 23:59 Intake Total 1095 / 1095 373.054 / 373.054 Output Total 200 / 200 0 / 0 430 / 430 Balance -200 / 140 1095 / 1095 -56.946 / -56.946 Weight 214 lb 213 lb 13.574 oz 209 lb 6.4 oz Microbiology Reports for the Last 24 Hours: Microbiology 06/28/24 04:01 Sputum - Expectorated Sputum Gram Stain - Final 06/26/24 23:28 Blood Blood Culture - Preliminary NO GROWTH AFTER 24 HOURS 06/26/24 23:18 Blood Blood Culture - Preliminary NO GROWTH AFTER 24 HOURS Constitutional: Present severe distress Comment:: Intubated and Sedated Head: Present normocephalic and atraumatic Neck: Present normal inspection and trachea midline Respiratory: Present patient mechanically ventilated, prolonged expiratory phase and rhonchi Cardiac: Present S1/S2 and Tachycardia GI: Present soft; Absent distention or tenderness Skin: Present intact; Absent cyanosis Neuro: Absent alert, awake or oriented x 3 Comment:: Intubated and sedated Extremities: Present normal inspection; Absent clubbing or cyanosis Psychiatric: Present unable to assess Assessment and Plan *Assessment and plan (1) Acute exacerbation of chronic obstructive pulmonary disease (COPD): Status: Acute Category: Medical Code(s): J44.1 - Chronic obstructive pulmonary disease with (acute) exacerbation (2) Acute respiratory failure with hypoxia: Status: Acute Category: Medical Code(s): J96.01 - Acute respiratory failure with hypoxia (3) Community acquired pneumonia: Status: Acute Qualifiers: Laterality: unspecified laterality Qualified Code(s): J18.9 - Pneumonia, unspecified organism Category: Medical Code(s): J18.9 - Pneumonia, unspecified organism Plan Mr. Carmona is a 59-year-old male greater than [id number] smoking history, COPD, sleep apnea previously refused CPAP therapy presented to the ER with worsening respiratory distress and pulmonary was called for further evaluation and management. CTA upon admission suboptimal timing, no obvious central pulmonary embolism but right lower lobe airspace disease and consolidative changes noted. AFebrile. Hemodynamically stable. Currently receicing cefepime azithromycin and steroids and nebulization therapies. On initial examination severe respiratory distress. Oxygen desaturation noted with high flow nasal cannula 40 L 100%, escalated to BiPAP therapy with saturat ions maintained at 89% and above. Interval update: Worsening hypoxic respiratory failure needing intubation mechanical ventilatory support overnight. Copious amount of bloody secretions. Mini respiratory viral PCR panel negative lower extremity venous Doppler negative for DVT. Continue to receive cefepime and methylprednisolone 40 mg twice daily Blood cultures no growth 24 hours Plan: Continue propofol and fentanyl for sedation Continue mechanical ventilatory support, currently on PEEP of 12 FiO2 of 100%. Continue to wean as tolerated. Chest x-ray from November reviewed, no pulmonary infiltrates. ET tube 5 cm above the nano. Continue Xopenex and ipratropium every 4 hours along with Pulmicort every 12 scheduled Continue cefepime and azithromycin pending culture results and MRSA PCR Continue methylprednisolone 40 mg twice daily IV - Continue mechanical ventilatory support - Continue AnalgoSedation with Propofol and Fentanyl with CPOT gal less than or euqal to 2 and RASS goal of to 2 (No need for deep sedation) - VAP bundle Recommend elevate head of the bed at 30 to 45 degrees Recommend oral care with chlorhexidne Recommend GI ulcer prophylaxis - Famotidine 20mg IV BID Recommend chemical DVT prophylaxis Total critical care time spent on this patient is 35 minutes managing acute hypoxic respiratory failure needing mechanical ventilation. This time spent include reviewing test results including interpreting chest x-rays, labs and arterial blood gas, optimizing the ventilator settings,formulating plan of care, discussing the plan of care with the team and the nursing staff.
[2024-06-28] MEDS: humaLOG 100 UNITS/ML 10ML VIAL (SSI) SUBCUT ×3 (11:33→21:35)
[2024-06-28 11:35] LABS: POC Glucose,Bedside 166 (70-110)
[2024-06-28] MEDS: AZITHROMYCIN 500 MG in 0.9 % SODIUM CHLORIDE 250 ML 250 MG IV (11:44)
--- NOTE | 2024-06-28 12:24 | EXP.CARD.PN ---
Subjective Subjective Date: 06/28/24 Time: 10:30 Principal diagnosis: PNA, RV failure Interval history: This is a 59-year-old gentleman who presented to the emergency department with shortness of breath. The patient was admitted to the hospital with pneumonia and respiratory failure. He also has some RV dysfunction and failure. The patient did get hypoxic overnight and ended up intubated and on mechanical ventilation. He remains intubated and on mechanical ventilation this morning. He is tolerating this well. He appears to be in no distress. His vital signs are stable. Exam Data for Last 24 hours Vital signs and Labs for Last 24 Hours: Temp Pulse Resp BP Pulse Ox O2 Del Method O2 Flow Rate 98.5 F 64 20 110/67 95 Mechanical Ventilation 40 06/28/24 08:02 06/28/24 12:20 06/28/24 08:12 06/28/24 12:20 06/28/24 12:20 06/28/24 05:00 06/27/24 08:00 FiO2 100 06/28/24 08:12 Laboratory Results - last 24 hr 06/26/24 12:10: SARS-CoV-2 (PCR) Not detected, Influenza Type A (PCR) Not detected, Influenza Type B (PCR) Not detected, RSV (PCR) Not detected, Rhinovirus (PCR) Not detected 06/27/24 16:51: POC Glucose 161 H 06/27/24 20:14: POC Glucose 154 H 06/28/24 04:08: Specimen Source Right radial, O2 % 100, ABG pH 7.48 H, ABG pCO2 61.4 H, ABG pO2 57.6 L, ABG HCO3 44.8 H, ABG Total CO2 46.7 H, ABG O2 Saturation 92, ABG Base Excess 21.3 H, Ben Test Non applicable, Vent Rate 20, Tidal Volume 440, PEEP 8 06/28/24 05:31: WBC 11.2 H D, RBC 5.71, Hgb 16.6, Hct 54.2 H, MCV 94.9 H, MCH 29.1, MCHC 30.6 L, RDW 16.1, Plt Count 152, MPV 10.3, Neut % (Auto) 85.9 H, Lymph % (Auto) 4.8 L, [place] % (Auto) 8.9, Eos % (Auto) 0.0 L, Baso % (Auto) 0.0 L, Neut # (Auto) 9.7 H, Lymph # (Auto) 0.5 L, [place] # (Auto) 1.0, Eos # (Auto) 0.0, Baso # (Auto) 0.0, Total Counted 100, Neutrophils % (Manual) 86 H, Lymphocytes % (Manual) 13, Monocytes % (Manual) 1 L, Platelet Estimate Normal, RBC Morphology Normal, Sodium 134 L, Potassium 4.0, Chloride 88 L, Carbon Dioxide 40 H, Anion Gap 10.0, BUN 24 H D, Creatinine 0.70, Estimated Creat Clear 155, Estimated GFR 116, Est GFR ( Amer) 140, Glucose 186 H, Hemoglobin A1c 6.9 H, Calcium 8.4, Magnesium 1.6, Total Bilirubin 1.8 H, AST 35, ALT 20, Alkaline Phosphatase 93, Total Protein 6.1 L, Albumin 3.4 L, Globulin 2.7, Albumin/Globulin Ratio 1.3 06/28/24 06:28: POC Glucose 184 H 06/28/24 11:27: POC Glucose 166 H I & O for Last 24 hours: Intake & Output 06/25/24 06/26/24 06/27/24 06/28/24 23:59 23:59 23:59 23:59 Intake Total 1095 / 1095 373.054 / 373.054 Output Total 200 / 200 0 / 0 430 / 430 Balance -200 / 140 1095 / 1095 -56.946 / -56.946 Weight 214 lb 213 lb 13.574 oz 209 lb 6.4 oz Microbiology Reports for the Last 24 Hours: Microbiology 06/28/24 04:01 Sputum - Expectorated Sputum Gram Stain - Final 06/26/24 23:28 Blood Blood Culture - Preliminary NO GROWTH AFTER 24 HOURS 06/26/24 23:18 Blood Blood Culture - Preliminary NO GROWTH AFTER 24 HOURS Constitutional Constitutional: no acute distress and average body habitus *Routine HEENT Exam Head: Present normocephalic and atraumatic ENT: Present mucous membranes moist *Routine Neck Exam Neck: Present supple; Absent JVD *Routine Respiratory Exam Respiratory: Present patient mechanically ventilated and rhonchi *Routine Cardiovascular Exam Cardiovascular: Present RRR, Normal S1 and Normal S2; Absent murmur or gallop *Routine Abdominal Exam Abdominal: Present soft and normoactive bowel sounds; Absent organomegaly *Routine Extremities Exam Extremities: Present pulses intact; Absent cyanosis, clubbing or edema *Routine Skin Exam Skin: Present intact *Routine Neurological Exam Neurological: Present altered mental status (Sedated on mechanical ventilation) Routine Psychiatric Exam Psychiatric: Present unable to assess Progress Note: A&P Assessment and plan (1) Acute respiratory failure with hypoxia: Status: Acute (2) RVF (right ventricular failure): Status: Acute (3) Acute exacerbation of chronic obstructive pulmonary disease (COPD): Status: Acute (4) Community acquired pneumonia: Status: Acute (5) Severe sepsis: Status: Acute (6) CAD (coronary artery disease): Status: Acute (7) Hypertension: Status: Acute (8) HLD (hyperlipidemia): Status: Acute (9) Diabetes mellitus: Status: Acute (10) COPD (chronic obstructive pulmonary disease): Status: Acute Assessment and Plan Assessment and Plan for All Diagnoses:: Plan: 1. The patient was admitted to the hospital with an acute respiratory failure. He is currently being treated for community-acquired pneumonia and acute exacerbation of COPD. The patient did get a hypoxic overnight. He was ultimately intubated and put on mechanical ventilation around 3 AM this morning. He is tolerating this well. Will defer to pulmonology. 2. There was some concern of an acute HFpEF exacerbation. Echocardiogram shows that he has a hyperdynamic EF with an ejection fraction of 70%. The patient has moderate dilation of his right ventricle with moderate RV dysfunction. The patient is a little more on the dry side with his hyperdynamic EF and he does not need any further diuresis at this time. He was given a 500 mL bolus over 5 hours of fluid because he was hyperdynamic yesterday. 3. The patient does have RV failure so since he is on mechanical ventilation we will start him on a dobutamine drip to offload some of his right ventricular pressure. Will start him on dobutamine drip at 2.5 of with no titration 4. Coronary artery disease is likely stable. He ruled out for an AK. No plans for invasive left cardiac catheterization at this time. Continue Plavix and aspirin. 5. His LDL goal is less than 55. Continue Lipitor. Will get a lipid panel in the morning. 6. His blood pressure is running on the lower side. Will stop his Norvasc. Carvedilol and lisinopril are already being held due to his blood pressure being on the lower side. 7. The patient is diabetic. He will need aggressive control of his diabetes. Will defer management this to the hospitalist. 8. Further recommendations will be made pending the patient's response to treatment. Thank you for the opportunity to help participate in the care of this patient. All recommendations and orders are per Dr. Mendoza.
--- NOTE | 2024-06-28 13:55 | DIET.NUTRFU ---
Addendum entered by Kaia King RD, MARISEL 06/29/24 15:59: spoke to nursing tolerating TF well and working up to goal rate, at 50ml/hr currently Addendum entered by Kaia King RD, MARISEL 06/29/24 11:32: Pulmonary requesting to start TF to meet nutritional needs during vent tx. He has ET in place. See below order for nutrition and start flush at 200ml [id number] with total fluid of 2335ml/day. Patient is going to wean with possible extubation in upcoming days. Was on regular diet prior to intubation will consult speech upon extubation. Increase TF Q4H as tolerating. Original Note: TF start if intubated more then 24 hours: glucerna 1.0@ 20ml/hr ATC increase to 75ml/hr= 1800kcal, 75gm protein and 1535ml free water, adjust flush based on IVF
[2024-06-28 16:38] LABS: POC Glucose,Bedside 165 (70-110)
[2024-06-28] MEDS: ATORVASTATIN 40MG TABLET 40 MG PO (21:34)
[2024-06-28 21:37] LABS: POC Glucose,Bedside 176 (70-110)
[2024-06-29] VITALS (77 sets, daily range): BP systolic 97–185; BP diastolic 57–115; PULSE 56–78; RESP 14–21; TEMP 36.9–37.7; O2SAT 88–98; BMI 28.8
[2024-06-29] MEDS: propofoL 100 ML 23.28 MG IV ×6 (00:13→19:52)
[2024-06-29] MEDS: CEFEPIME HCL 2 GM in 0.9 % SODIUM CHLORIDE 100 ML IV ×3 (01:48→15:30)
[2024-06-29] MEDS: LEVALBUTEROL 1.25MG/3ML NEB 1.25 MG IH ×6 (02:19→21:16)
[2024-06-29] MEDS: IPRATROPIUM BROMIDE 0.5 MG/2.5ML SOLUTION IH ×6 (02:19→21:16)
[2024-06-29] MEDS: humaLOG 100 UNITS/ML 10ML VIAL (SSI) SUBCUT ×4 (06:01→20:47)
[2024-06-29 06:05] LABS: POC Glucose,Bedside 168 (70-110)
[2024-06-29] MEDS: BUDESONIDE 0.5MG/2ML NEB 0.5 MG IH ×2 (06:33→18:42)
[2024-06-29 06:44] LABS: Basophils % 0.3 % (0.1-2.0); Hematocrit 55.1 % (42.0-52.0); Hemoglobin 16.5 g/dL (14.1-18.0); Lymphocytes # 0.4 K/mm3 (0.7-4.5); Lymphocytes % 3.5 % (10-50); Mean Corpuscular HGB Conc 29.9 g/dL (31.8-35.4); Mean Corpuscular Hemoglobin 28.6 pg (27.0-31.2); Mean Corpuscular Volume 95.7 fl (80-94); Mean Platelet Volume 11.9 fl (7.4-10.4); Monocytes # 1.2 K/mm3 (0.1-1.0); Monocytes % 10.7 % (1.7-9.3); Neutrophils # 9.6 K/mm3 (1.8-7.8); Neutrophils % 85.1 % (37.0-80.0); Platelet Count 98 K/mm3 (142-424); Red Blood Count 5.76 M/mm3 (4.60-6.20); Red Cell Distribution Width 16.5 % (11.5-17.5); White Blood Count 11.3 K/mm3 (4.8-10.8)
[2024-06-29] MEDS: METHYLPREDNISOLONE SOD SUCC 40MG VIAL 40 MG IV ×2 (07:43→20:47)
[2024-06-29] MEDS: ENOXAPARIN 40MG/0.4ML SYRINGE 40 MG SUBCUT (07:43)
[2024-06-29] MEDS: AZITHROMYCIN 500 MG in 0.9 % SODIUM CHLORIDE 250 ML 250 MG IV (07:43)
[2024-06-29] MEDS: ASPIRIN EC 81MG TABLET 81 MG PO (07:43)
[2024-06-29] MEDS: CLOPIDOGREL 75MG TAB 75 MG PO (07:43)
[2024-06-29] MEDS: FENTANYL CITRATE/PF 1,000 MCG in 0.9 % SODIUM CHLORIDE 80 ML 15 MCG IV (09:09)
[2024-06-29 09:13] LABS: Chol/HDL Ratio 4.4 (1-3.5); Cholesterol 88 mg/dl (140-200); HDL Cholesterol 20 mg/dl (40-60); Triglycerides 135 mg/dl (30-150); VLDL Cholesterol 27 mg/dL (0-40)
[2024-06-29 09:24] LABS: Direct LDL Cholesterol 43.31 mg/dL (100-129)
[2024-06-29 10:03] LABS: Lactate Venous 1.5 mmol/L (0.4-2.0); VBG Base Excess 11.2 mmol/L (-2.4-2.3); VBG HCO3 34.5 mmol/L (23-30); VBG Oxygen Saturation 99.7 % (50-70); VBG PCO2 46.3 mmol/L (35-51); VBG PH 7.49 mmol/L (7.31-7.41); VBG PO2 193.8 mmol/L (28-40); VBG Total CO2 35.9 mmol/L (23-27)
--- NOTE | 2024-06-29 10:05 | XR_ITS ---
FINAL REPORT CLINICAL HISTORY: MV FINDINGS: SINGLE VIEW CHEST The heart is normal in size. The mediastinum is unremarkable. Endotracheal tube terminates 6.5 cm superior to the nano. There are linear opacities at the left base consistent with atelectasis with small left effusion. There is no pneumothorax. IMPRESSION: Left base atelectasis with small left effusion. Reviewed, Interpreted and Dictated by Ryan Moya MD Transcribed by Leticia Rojas Authenticated and [facility]
--- NOTE | 2024-06-29 10:05 | P.PN_ITS ---
Subjective *Date: 06/29/24 *Time: 12:25 Interval history: No acute respiratory vents overnight Pulmonology Exam Inpatient Vital signs and Labs for Last 24 Hours: Temp Pulse Resp BP Pulse Ox O2 Del Method O2 Flow Rate 98.6 F 60 20 151/90 H 96 Mechanical Ventilation 3 06/29/24 08:00 06/29/24 09:54 06/29/24 09:54 06/29/24 09:00 06/29/24 09:54 06/29/24 09:54 06/29/24 01:00 FiO2 100 06/29/24 09:54 Laboratory Results - last 24 hr 06/28/24 11:27: POC Glucose 166 H 06/28/24 16:28: POC Glucose 165 H 06/28/24 21:30: POC Glucose 176 H 06/29/24 05:38: WBC 11.3 H, RBC 5.76, Hgb 16.5, Hct 55.1 H, MCV 95.7 H, MCH 28.6, MCHC 29.9 L, RDW 16.5, Plt Count 98 L D, MPV 11.9 H, Neut % (Auto) 85.1 H, Lymph % (Auto) 3.5 L, [place] % (Auto) 10.7 H, Eos % (Auto) 0.0 L, Baso % (Auto) 0.3, Neut # (Auto) 9.6 H, Lymph # (Auto) 0.4 L, [place] # (Auto) 1.2 H, Eos # (Auto) 0.0, Baso # (Auto) 0.0, Triglycerides 135, Cholesterol 88 L, LDL Cholesterol Direct 43.31 L, VLDL Cholesterol 27, HDL Cholesterol 20 L, Cholesterol/HDL Ratio 4.4 H 06/29/24 05:58: POC Glucose 168 H I & O for Labs for Last 24 Hours: Intake & Output 06/26/24 06/27/24 06/28/24 06/29/24 23:59 23:59 23:59 23:59 Intake Total 1095 / 1095 1543.803 / 1543.803 759.803 / 759.803 Output Total 200 / 200 0 / 0 1310 / 1460 540 / 540 Balance -200 / 140 1095 / 1095 233.803 / 83.803 219.803 / 219.803 Weight 214 lb 213 lb 13.574 oz 209 lb 6.4 oz 213 lb 1.6 oz Microbiology Reports for the Last 24 Hours: Microbiology 06/27/24 12:10 Nose - Nasal MRSA Culture - Final Negative 06/28/24 04:01 Sputum - Expectorated Sputum Gram Stain - Final 06/28/24 04:01 Sputum - Expectorated Sputum Sputum Culture - Preliminary 06/26/24 23:28 Blood Blood Culture - Preliminary NO GROWTH AFTER 48 HOURS 06/26/24 23:18 Blood Blood Culture - Preliminary NO GROWTH AFTER 48 HOURS Constitutional: Present severe distress Comment:: Intubated and Sedated Head: Present normocephalic and atraumatic Neck: Present normal inspection and trachea midline Respiratory: Present patient mechanically ventilated, prolonged expiratory phase and rhonchi Cardiac: Present S1/S2 and Tachycardia GI: Present soft; Absent distention or tenderness Skin: Present intact; Absent cyanosis Neuro: Absent alert, awake or oriented x 3 Comment:: Intubated and sedated Extremities: Present normal inspection; Absent clubbing or cyanosis Psychiatric: Present unable to assess Assessment and Plan *Assessment and plan (1) Acute exacerbation of chronic obstructive pulmonary disease (COPD): Status: Acute Category: Medical Code(s): J44.1 - Chronic obstructive pulmonary disease with (acute) exacerbation (2) Acute respiratory failure with hypoxia: Status: Acute Category: Medical Code(s): J96.01 - Acute respiratory failure with hypoxia (3) Community acquired pneumonia: Status: Acute Qualifiers: Laterality: unspecified laterality Qualified Code(s): J18.9 - Pneumonia, unspecified organism Category: Medical Code(s): J18.9 - Pneumonia, unspecified organism Plan Mr. Carmona is a 59-year-old male greater than [id number] smoking history, COPD, sleep apnea previously refused CPAP therapy presented to the ER with worsening respiratory distress and pulmonary was called for further evaluation and management. CTA upon admission suboptimal timing, no obvious central pulmonary embolism but right lower lobe airspace disease and consolidative changes noted. AFebrile. Hemodynamically stable. Currently receicing cefepime azithromycin and steroids and nebulization therapies. On initial examination severe respiratory distress. Oxygen desaturation noted with high flow nasal cannula 40 L 100%, escalated to BiPAP therapy with saturations maintained at 89% and above. Mini respiratory viral PCR panel negative lower extremity venous Doppler negative for DVT. Interval update: No acute respiratory vents overnight. Continue to remain on mechanical ventilatory support.. Nasal MRSA PCR negative. Sputum prelim gram-positive diplococci. Continue to receive dobutamine infusion at 2.5, cardiology following. Echo continued to show RV dilation and reduced RV function since 2022 likely secondary to uncontrolled sleep apnea and severe COPD Plan: Continue propofol and fentanyl for sedation Continue mechanical ventilatory support, currently on PEEP of 10 FiO2 of 80% rate of 18 and tidal volume of 440. Continue to wean as tolerated. Continue Xopenex and ipratropium every 4 hours along with Pulmicort every 12 scheduled Continue cefepime and azithromycin pending culture results and MRSA PCR Continue methylprednisolone 40 mg twice daily IV Chest x-ray stable with no new pulmonary infiltrates. Small left pleural effusion. ET tube 6 cm above the nano. Hemodynamically stable. MAP greater than 70. Initiate tube feeds. - Continue mechanical ventilatory support - Continue AnalgoSedation with Propofol and Fentanyl with CPOT gal less than or euqal to 2 and RASS goal of to 2 (No need for deep sedation) - VAP bundle Recommend elevate head of the bed at 30 to 45 degrees Recommend oral care with chlorhexidne Recommend GI ulcer prophylaxis - Famotidine 20mg IV BID Recommend chemical DVT prophylaxis Total critical care time spent on this patient is 35 minutes managing acute hypoxic respiratory failure needing mechanical ventilation. This time spent include reviewing test results including interpreting chest x-rays, labs and op timizing the ventilator settings,formulating plan of care, discussing the plan of care with the team and the nursing staff.
--- NOTE | 2024-06-29 10:48 | PC.NURSE ---
verbal order per Dr. Shaw to contact can handler for tube feeds to be started. attempted to call, no answer. will continue to try.
[2024-06-29 11:11] LABS: POC Glucose,Bedside 164 (70-110)
[2024-06-29 11:30] LABS: Albumin Level 3.3 g/dl (3.5-5.0); Chloride 91 mmol/L (98-107)
[2024-06-29 11:31] LABS: Potassium 4.2 mmoL/L (3.5-5.1); Sodium 137 mmol/L (136-145)
[2024-06-29 11:33] LABS: Alanine Aminotransferase 17 U/L (12-78); Aspartate Amino Transferase 24 U/L (17-59); Blood Urea Nitrogen 28 mg/dl (9-20); Creatinine Clearance Estimated 157 mL/min (50-200); Estimated Glomerular Filt Rate 116 ml/min (>60); GFR (African American) 140 ML/MIN (>60)
[2024-06-29 11:34] LABS: Albumin/Globulin Ratio 1.1 (1.1-1.8); Alkaline Phosphatase 97 U/L (38-126); Bilirubin,Total 1.2 mg/dl (0.2-1.3); Calcium 8.6 mg/dl (8.4-10.2); Glucose 177 mg/dl (74-100); Total Protein,Serum 6.3 g/dl (6.3-8.2)
[2024-06-29 12:00] LABS: Anion Gap 12.2 mEq/L (5-15); Carbon Dioxide 38 mmol/L (22.0-30.0)
--- NOTE | 2024-06-29 12:20 | EXP.CARD.PN ---
Subjective Subjective Date: 06/29/24 Time: 09:30 Principal diagnosis: PNA, RV failure Interval history: This is a 59-year-old gentleman who presented to the emergency department with shortness of breath. The patient was admitted to the hospital with pneumonia and respiratory failure. He also has some RV dysfunction and failure. The patient did get hypoxic and was intubated and remains on mechanical ventilation. He is tolerating this well. He appears to be in no distress. His vital signs are stable. Exam Data for Last 24 hours Vital signs and Labs for Last 24 Hours: Temp Pulse Resp BP Pulse Ox O2 Del Method O2 Flow Rate 98.6 F 65 20 157/85 H 90 L Mechanical Ventilation 3 06/29/24 08:00 06/29/24 12:00 06/29/24 12:00 06/29/24 12:00 06/29/24 12:00 06/29/24 12:00 06/29/24 01:00 FiO2 80 06/29/24 12:00 Laboratory Results - last 24 hr 06/28/24 16:28: POC Glucose 165 H 06/28/24 21:30: POC Glucose 176 H 06/29/24 05:38: WBC 11.3 H, RBC 5.76, Hgb 16.5, Hct 55.1 H, MCV 95.7 H, MCH 28.6, MCHC 29.9 L, RDW 16.5, Plt Count 98 L D, MPV 11.9 H, Neut % (Auto) 85.1 H, Lymph % (Auto) 3.5 L, [place] % (Auto) 10.7 H, Eos % (Auto) 0.0 L, Baso % (Auto) 0.3, Neut # (Auto) 9.6 H, Lymph # (Auto) 0.4 L, [place] # (Auto) 1.2 H, Eos # (Auto) 0.0, Baso # (Auto) 0.0, Triglycerides 135, Cholesterol 88 L, LDL Cholesterol Direct 43.31 L, VLDL Cholesterol 27, HDL Cholesterol 20 L, Cholesterol/HDL Ratio 4.4 H 06/29/24 05:58: POC Glucose 168 H 06/29/24 09:43: VBG pH 7.49 H, VBG pCO2 46.3, VBG pO2 193.8 H, VBG HCO3 34.5 H, VBG Total CO2 35.9 H, VBG O2 Saturation 99.7 H, VBG Base Excess 11.2 H, VBG Lactic Acid 1.5 06/29/24 11:04: Sodium 137, Potassium 4.2, Chloride 91 L, Carbon Dioxide 38 H, Anion Gap 12.2, BUN 28 H, Creatinine 0.70, Estimated Creat Clear 157, Estimated GFR 116, Est GFR ( Amer) 140, Glucose 177 H, Calcium 8.6, Total Bilirubin 1.2, AST 24 D, ALT 17, Alkaline Phosphatase 97, Total Protein 6.3, Albumin 3.3 L, Globulin 3.0, Albumin/Globulin Ratio 1.1 06/29/24 11:05: POC Glucose 164 H I & O for Last 24 hours: Intake & Output 06/26/24 06/27/24 06/28/24 06/29/24 23:59 23:59 23:59 23:59 Intake Total 1095 / 1095 1543.803 / 1543.803 819.943 / 819.943 Output Total 200 / 200 0 / 0 1310 / 1460 540 / 540 Balance -200 / 140 1095 / 1095 233.803 / 83.803 279.943 / 279.943 Weight 214 lb 213 lb 13.574 oz 209 lb 6.4 oz 213 lb 1.6 oz Microbiology Reports for the Last 24 Hours: Microbiology 06/27/24 12:10 Nose - Nasal MRSA Culture - Final Negative 06/28/24 04:01 Sputum - Expectorated Sputum Gram Stain - Final 06/28/24 04:01 Sputum - Expectorated Sputum Sputum Culture - Preliminary 06/26/24 23:28 Blood Blood Culture - Preliminary NO GROWTH AFTER 48 HOURS 06/26/24 23:18 Blood Blood Culture - Preliminary NO GROWTH AFTER 48 HOURS Constitutional Constitutional: no acute distress and average body habitus *Routine HEENT Exam Head: Present normocephalic and atraumatic ENT: Present mucous membranes moist *Routine Neck Exam Neck: Present supple; Absent JVD *Routine Respiratory Exam Respiratory: Present patient mechanically ventilated and rhonchi *Routine Cardiovascular Exam Cardiovascular: Present RRR, Normal S1 and Normal S2; Absent murmur or gallop *Routine Abdominal Exam Abdominal: Present soft and normoactive bowel sounds; Absent organomegaly *Routine Extremities Exam Extremities: Present pulses intact; Absent cyanosis, clubbing or edema *Routine Skin Exam Skin: Present intact *Routine Neurological Exam Neurological: Present altered mental status (Sedated on mechanical ventilation) Routine Psychiatric Exam Psychiatric: Present unable to assess Progress Note: A&P Assessment and plan (1) Acute respiratory failure with hypoxia: Status: Acute (2) Acute exacerbation of chronic obstructive pulmonary disease (COPD): Status: Acute (3) Community acquired pneumonia: Status: Acute (4) RVF (right ventricular failure): Status: Acute (5) Severe sepsis: Status: Acute (6) CAD (coronary artery disease): Status: Acute (7) Hypertension: Status: Acute (8) HLD (hyperlipidemia): Status: Acute (9) Diabetes mellitus: Status: Acute Assessment and Plan Assessment and Plan for All Diagnoses:: Plan: 1. The patient was admitted to the hospital with an acute respiratory failure. He is currently being treated for community-acquired pneumonia and acute exacerbation of COPD. The patient did get a hypoxic and was ultimately intubated and put on mechanical ventilation. He is tolerating this well. Will defer to pulmonology. 2. There was some concern of an acute HFpEF exacerbation. Echocardiogram shows that he has a hyperdynamic EF with an ejection fraction of 70%. The patient has moderate dilation of his right ventricle with moderate RV dysfunction. The patient is a little more on the dry side with his hyperdynamic EF and he does not need any further diuresis at this time. No acute HFpEF. 3. The patient does have RV dysfunction/failure so he was started on a dobutamine drip once he was intubated to offload some of his right ventricular pressure. He has done well on mechanical ventilation and is going to start to be weaned off of the ventilator. Will stop the dobutamine drip at this time. 4. Coronary artery disease is likely stable. He ruled out for an TX. No plans for invasive left cardiac catheterization at this time. Continue Plavix and aspirin. 5. His LDL goal is less than 55. Continue Lipitor. His LDL is 43. 6. His blood pressure is running on the higher side now. This would likely improve once the dobutamine is stopped. Once he is taking oral medications again his Norvasc, carvedilol and lisinopril can be restarted. 7. The patient is diabetic. He will need aggressive control of his diabetes. Will defer management this to the hospitalist. 8. No further recommendations at this time from a cardiac standpoint. If any other cardiac issues arise throughout the patient's hospitalization please feel free to contact cardiology again. Thank you for the opportunity to help participate in the care of this patient. All recommendations and orders are per Dr. Mendoza.
--- NOTE | 2024-06-29 14:17 | EXP.ACUTE.PN ---
Subjective *Date: 06/29/24 *Time: 11:15 Interval history: Dated, currently on ventilator. Appears comfortable. Afebrile overnight. Medical Exam Vital signs and Labs for Last 24 Hours: Vital Signs Temp Pulse Pulse Resp BP BP Pulse Ox 06/29/24 14:00 90 L 06/29/24 14:00 64 20 112/67 90 L 06/29/24 13:34 59 L 06/29/24 13:34 61 06/29/24 13:34 92 L 06/29/24 13:34 18 92 L 06/29/24 13:00 06/29/24 13:00 64 20 116/68 90 L 06/29/24 12:00 98.4 F 06/29/24 12:00 20 90 L 06/29/24 12:00 65 20 157/85 H 90 L 06/29/24 10:50 06/29/24 10:49 64 20 165/95 H 90 L 06/29/24 10:41 98 06/29/24 10:22 61 06/29/24 10:22 62 06/29/24 10:22 96 06/29/24 10:22 20 96 06/29/24 09:54 96 06/29/24 09:54 60 20 154/86 H 96 06/29/24 09:00 06/29/24 09:00 66 20 151/90 H 96 06/29/24 08:00 98.6 F 06/29/24 08:00 62 20 151/90 H 97 06/29/24 08:00 20 97 06/29/24 08:00 66 20 138/80 97 06/29/24 07:00 06/29/24 07:00 58 L 20 122/74 96 06/29/24 06:33 65 06/29/24 06:33 63 06/29/24 06:33 20 06/29/24 06:00 63 96 06/29/24 06:00 125/76 06/29/24 05:15 63 95 06/29/24 05:00 06/29/24 05:00 60 14 123/74 94 L 06/29/24 05:00 123/74 06/29/24 04:45 65 95 06/29/24 04:30 60 95 06/29/24 04:15 62 20 96 06/29/24 04:00 60 06/29/24 04:00 99.4 F 141/77 H 06/29/24 04:00 62 20 96 06/29/24 04:00 63 95 06/29/24 03:45 65 21 96 06/29/24 03:30 62 21 96 06/29/24 03:15 63 19 96 06/29/24 03:01 61 20 159/90 H 96 06/29/24 03:01 159/90 H 06/29/24 03:00 06/29/24 03:00 61 19 96 06/29/24 02:46 59 L 06/29/24 02:46 59 L 06/29/24 02:45 60 21 96 06/29/24 02:30 59 L 20 95 06/29/24 02:15 60 20 96 06/29/24 02:00 20 96 06/29/24 02:00 60 20 135/72 95 06/29/24 02:00 135/72 06/29/24 01:45 61 20 95 06/29/24 01:30 60 20 95 06/29/24 01:15 63 20 95 06/29/24 01:00 06/29/24 01:00 61 20 124/65 95 06/29/24 01:00 124/65 06/29/24 00:45 62 19 95 06/29/24 00:30 63 20 95 06/29/24 00:15 62 20 96 06/29/24 00:00 70 06/29/24 00:00 96 06/29/24 00:00 61 95 06/29/24 00:00 140/76 06/29/24 00:00 99.7 F H 62 14 140/76 96 06/28/24 23:45 63 96 06/28/24 23:30 63 96 06/28/24 23:15 64 97 06/28/24 23:01 144/73 H 06/28/24 23:01 59 L 97 06/28/24 23:00 06/28/24 23:00 60 20 144/73 H 97 06/28/24 22:45 58 L 21 96 06/28/24 22:30 59 L 96 06/28/24 22:15 56 L 97 06/28/24 22:01 56 L 06/28/24 22:01 56 L 06/28/24 22:00 122/69 01/08/25 22:00 51 L 20 122/69 96 06/28/24 22:00 20 96 06/28/24 21:45 61 96 06/28/24 21:30 61 96 06/28/24 21:15 62 96 06/28/24 21:00 06/28/24 21:00 113/65 06/28/24 21:00 60 113/65 96 06/28/24 20:45 53 L 96 06/28/24 20:36 20 96 06/28/24 20:30 56 L 96 06/28/24 20:15 59 L 96 06/28/24 20:00 60 06/28/24 20:00 57 L 96 06/28/24 20:00 110/65 06/28/24 20:00 99.1 F 60 22 110/65 96 06/28/24 19:45 59 L 96 06/28/24 19:30 59 L 96 06/28/24 19:15 62 94 L 06/28/24 19:00 117/67 06/28/24 19:00 61 94 L 06/28/24 19:00 06/28/24 18:05 56 L 06/28/24 18:05 56 L 06/28/24 18:00 96 06/28/24 18:00 20 96 06/28/24 18:00 129/71 06/28/24 18:00 56 L 96 06/28/24 17:00 57 L 130/70 96 06/28/24 17:00 06/28/24 16:32 96 06/28/24 16:26 56 L 118/68 96 06/28/24 16:00 06/28/24 16:00 58 L 20 117/64 96 06/28/24 16:00 60 06/28/24 15:52 117/67 06/28/24 15:48 58 L 20 119/69 96 06/28/24 15:20 77 96 06/28/24 15:10 06/28/24 15:04 129/80 06/28/24 15:04 61 97 06/28/24 15:03 61 97 06/28/24 15:03 136/74 06/28/24 15:00 62 98 06/28/24 15:00 109/61 L 06/28/24 14:58 109/63 L 01/08/25 14:58 59 L 97 06/28/24 14:56 105/61 L 06/28/24 14:56 59 L 96 06/28/24 14:54 59 L 96 06/28/24 14:54 107/60 L 06/28/24 14:52 107/63 L 06/28/24 14:52 60 96 06/28/24 14:50 105/59 L 06/28/24 14:50 57 L 96 06/28/24 14:48 106/63 L 06/28/24 14:48 59 L 96 06/28/24 14:46 108/61 L 06/28/24 14:46 59 L 96 06/28/24 14:45 58 L 96 06/28/24 14:44 108/62 L 06/28/24 14:44 60 96 06/28/24 14:42 60 96 06/28/24 14:42 108/60 L 06/28/24 14:40 108/63 L 06/28/24 14:40 61 96 06/28/24 14:38 107/63 L 06/28/24 14:38 58 L 96 06/28/24 14:36 108/62 L 06/28/24 14:36 59 L 96 06/28/24 14:34 108/59 L 06/28/24 14:34 58 L 96 06/28/24 14:32 107/59 L 06/28/24 14:32 59 L 96 06/28/24 14:30 108/61 L 06/28/24 14:30 60 96 06/28/24 14:28 61 96 06/28/24 14:28 111/63 06/28/24 14:26 108/60 L 06/28/24 14:26 59 L 96 06/28/24 14:24 109/61 L 06/28/24 14:24 58 L 96 06/28/24 14:22 109/64 L 06/28/24 14:22 59 L 96 06/28/24 14:20 110/64 06/28/24 14:20 60 96 06/28/24 14:18 110/65 06/28/24 14:18 60 96 O2 Del Method O2 Flow Rate FiO2 06/29/24 14:00 80 06/29/24 14:00 Mechanical Ventilation 06/29/24 13:34 06/29/24 13:34 06/29/24 13:34 Mechanical Ventilation 80 06/29/24 13:34 80 06/29/24 13:00 Mechanical Ventilation 06/29/24 13:00 Mechanical Ventilation 06/29/24 12:00 06/29/24 12:00 Mechanical Ventilation 80 06/29/24 12:00 Mechanical Ventilation 06/29/24 10:50 Mechanical Ventilation 06/29/24 10:49 Mechanical Ventilation 06/29/24 10:41 70 06/29/24 10:22 06/29/24 10:22 06/29/24 10:22 Mechanical Ventilation 100 06/29/24 10:22 100 06/29/24 09:54 100 06/29/24 09:54 Mechanical Ventilation 06/29/24 09:00 Mechanical Ventilation 06/29/24 09:00 Mechanical Ventilation 06/29/24 08:00 06/29/24 08:00 Mechanical Ventilation 100 06/29/24 08:00 Mechanical Ventilation 100 06/29/24 08:00 Mechanical Ventilation 06/29/24 07:00 Mechanical Ventilation 06/29/24 07:00 Mechanical Ventilation 06/29/24 06:33 06/29/24 06:33 06/29/24 06:33 100 06/29/24 06:00 06/29/24 06:00 06/29/24 05:15 06/29/24 05:00 Mechanical Ventilation 06/29/24 05:00 Mechanical Ventilation 06/29/24 05:00 06/29/24 04:45 06/29/24 04:30 06/29/24 04:15 06/29/24 04:00 06/29/24 04:00 06/29/24 04:00 06/29/24 04:00 Mechanical Ventilation 100 06/29/24 03:45 06/29/24 03:30 06/29/24 03:15 06/29/24 03:01 Mechanical Ventilation 06/29/24 03:01 06/29/24 03:00 Mechanical Ventilation 06/29/24 03:00 06/29/24 02:46 06/29/24 02:46 06/29/24 02:45 06/29/24 02:30 06/29/24 02:15 06/29/24 02:00 100 06/29/24 02:00 Mechanical Ventilation 06/29/24 02:00 06/29/24 01:45 06/29/24 01:30 06/29/24 01:15 06/29/24 01:00 Mechanical Ventilation 06/29/24 01:00 Nasal Cannula 3 06/29/24 01:00 06/29/24 00:45 06/29/24 00:30 06/29/24 00:15 06/29/24 00:00 06/29/24 00:00 Mechanical Ventilation 100 06/29/24 00:00 Mechanical Ventilation 100 06/29/24 00:00 06/29/24 00:00 Mechanical Ventilation 06/28/24 23:45 06/28/24 23:30 06/28/24 23:15 06/28/24 23:01 06/28/24 23:01 06/28/24 23:00 Mechanical Ventilation 06/28/24 23:00 Mechanical Ventilation 06/28/24 22:45 06/28/24 22:30 06/28/24 22:15 06/28/24 22:01 06/28/24 22:01 06/28/24 22:00 06/28/24 22:00 Mechanical Ventilation 40 06/28/24 22:00 100 06/28/24 21:45 06/28/24 21:30 06/28/24 21:15 06/28/24 21:00 Mechanical Ventilation 06/28/24 21:00 06/28/24 21:00 Mechanical Ventilation 06/28/24 20:45 06/28/24 20:36 100 06/28/24 20:30 06/28/24 20:15 06/28/24 20:00 06/28/24 20:00 Mechanical Ventilation 100 06/28/24 20:00 06/28/24 20:00 Mechanical Ventilation 06/28/24 19:45 06/28/24 19:30 06/28/24 19:15 06/28/24 19:00 06/28/24 19:00 06/28/24 19:00 Mechanical Ventilation 06/28/24 18:05 06/28/24 18:05 06/28/24 18:00 Mechanical Ventilation 100 06/28/24 18:00 100 06/28/24 18:00 06/28/24 18:00 06/28/24 17:00 06/28/24 17:00 Mechanical Ventilation 06/28/24 16:32 Mechanical Ventilation 06/28/24 16:26 Mechanical Ventilation 06/28/24 16:00 06/28/24 16:00 Mechanical Ventilation 06/28/24 16:00 06/28/24 15:52 06/28/24 15:48 Mechanical Ventilation 06/28/24 15:20 Mechanical Ventilation 06/28/24 15:10 Mechanical Ventilation 06/28/24 15:04 06/28/24 15:04 06/28/24 15:03 06/28/24 15:03 06/28/24 15:00 06/28/24 15:00 06/28/24 14:58 06/28/24 14:58 06/28/24 14:56 06/28/24 14:56 06/28/24 14:54 06/28/24 14:54 06/28/24 14:52 06/28/24 14:52 06/28/24 14:50 06/28/24 14:50 06/28/24 14:48 06/28/24 14:48 06/28/24 14:46 06/28/24 14:46 06/28/24 14:45 06/28/24 14:44 06/28/24 14:44 06/28/24 14:42 06/28/24 14:42 06/28/24 14:40 06/28/24 14:40 06/28/24 14:38 06/28/24 14:38 06/28/24 14:36 06/28/24 14:36 06/28/24 14:34 06/28/24 14:34 06/28/24 14:32 06/28/24 14:32 06/28/24 14:30 06/28/24 14:30 06/28/24 14:28 06/28/24 14:28 06/28/24 14:26 06/28/24 14:26 06/28/24 14:24 06/28/24 14:24 06/28/24 14:22 06/28/24 14:22 06/28/24 14:20 06/28/24 14:20 06/28/24 14:18 06/28/24 14:18 Intake and Output 06/28/24 06/29/24 06/29/24 23:59 07:59 15:59 Intake Total 880.766 / 1543.803 274.496 / 938.731 664.235 / 938.731 Output Total 880 / 1460 450 / 585 135 / 585 Balance 0.766 / 83.803 -175.504 / 353.731 529.235 / 353.731 Intake: Intake, Tube Feeding Amount 15 / 15 Intake, Total IV Amount 880.766 / 1543.803 274.496 / 923.731 649.235 / 923.731 Azithromycin 500 mg In 0.9 % 250 / 250 Sodium Chloride 250 ml @ 250 mls/hr IV Q24H ELISA Rx#:[id number] Azithromycin 500 mg In 0.9 % 250 / 250 Sodium Chloride 250 ml @ 250 mls/hr IV Q24H ELISA Rx#:[id number] Cefepime HCl 2 gm In 0.9 % 200 / 300 100 / 100 Sodium Chloride 100 ml @ 200 mls/hr IV Q12H ELISA Rx#:[id number] Output: Output, Urine Amount 850 / 1250 90 / 90 Output, Urine Amount (Catheter) 30 / 210 450 / 495 45 / 495 Muhammad 30 / 210 450 / 495 45 / 495 Other: Number of Unmeasured Voids 0 0 Weight 96.661 kg Patient Weight 06/29/24 23:59 Weight 96.661 kg Laboratory Results - last 24 hr 06/28/24 16:28: POC Glucose 165 H 06/28/24 21:30: POC Glucose 176 H 06/29/24 05:38: WBC 11.3 H, RBC 5.76, Hgb 16.5, Hct 55.1 H, MCV 95.7 H, MCH 28.6, MCHC 29.9 L, RDW 16.5, Plt Count 98 L D, MPV 11.9 H, Neut % (Auto) 85.1 H, Lymph % (Auto) 3.5 L, [place] % (Auto) 10.7 H, Eos % (Auto) 0.0 L, Baso % (Auto) 0.3, Neut # (Auto) 9.6 H, Lymph # (Auto) 0.4 L, [place] # (Auto) 1.2 H, Eos # (Auto) 0.0, Baso # (Auto) 0.0, Triglycerides 135, Cholesterol 88 L, LDL Cholesterol Direct 43.31 L, VLDL Cholesterol 27, HDL Cholesterol 20 L, Cholesterol/HDL Ratio 4.4 H 06/29/24 05:58: POC Glucose 168 H 06/29/24 09:43: VBG pH 7.49 H, VBG pCO2 46.3, VBG pO2 193.8 H, VBG HCO3 34.5 H, VBG Total CO2 35.9 H, VBG O2 Saturation 99.7 H, VBG Base Excess 11.2 H, VBG Lactic Acid 1.5 06/29/24 11:04: Sodium 137, Potassium 4.2, Chloride 91 L, Carbon Dioxide 38 H, Anion Gap 12.2, BUN 28 H, Creatinine 0.70, Estimated Creat Clear 157, Estimated GFR 116, Est GFR ( Amer) 140, Glucose 177 H, Calcium 8.6, Total Bilirubin 1.2, AST 24 D, ALT 17, Alkaline Phosphatase 97, Total Protein 6.3, Albumin 3.3 L, Globulin 3.0, Albumin/Globulin Ratio 1.1 06/29/24 11:05: POC Glucose 164 H I & O for Labs for Last 24 Hours: Intake & Output 06/26/24 06/27/24 06/28/24 06/29/24 23:59 23:59 23:59 23:59 Intake Total 1095 / 1095 1543.803 / 1543.803 938.731 / 938.731 Output Total 200 / 200 0 / 0 1310 / 1460 585 / 585 Balance -200 / 140 1095 / 1095 233.803 / 83.803 353.731 / 353.731 Weight 97.069 kg 97 kg 94.982 kg 96.661 kg Microbiology Reports for the Last 24 Hours: Microbiology 06/27/24 12:10 Nose - Nasal MRSA Culture - Final Negative 06/28/24 04:01 Sputum - Expectorated Sputum Gram Stain - Final 06/28/24 04:01 Sputum - Expectorated Sputum Sputum Culture - Preliminary 06/26/24 23:28 Blood Blood Culture - Preliminary NO GROWTH AFTER 48 HOURS 06/26/24 23:18 Blood Blood Culture - Preliminary NO GROWTH AFTER 48 HOURS Constitutional: Present no acute distress, chronically ill appearing and somnolent Head: Present atraumatic and normocephalic ENT: Present normal exam Comment:: ET tube in place, OG in place Neck: Present normal inspection Respiratory: Present patient mechanically ventilated, prolonged expiratory phase and wheezes; Absent respiratory distress, rhonchi or crackles Cardiac: Present Reg Rate and Rhythm GI: Present soft and normal bowel sounds; Absent distention or tenderness Extremities: Present normal inspection; Absent edema Skin: Present intact; Absent erythema Neuro: Present moves all extremities (Spontaneous); Absent alert, awake or oriented x 3 Comment:: Sedated Assessment and Plan *Assessment and plan (1) Severe sepsis: Status: Acute Category: Medical Code(s): A41.9 - Sepsis, unspecified organism; R65.20 - Severe sepsis without septic shock (2) Acute respiratory failure with hypoxia: Status: Acute Category: Medical Code(s): J96.01 - Acute respiratory failure with hypoxia (3) Acute exacerbation of chronic obstructive pulmonary disease (COPD): Status: Acute Category: Medical Code(s): J44.1 - Chronic obstructive pulmonary disease with (acute) exacerbation (4) Community acquired pneumonia: Status: Acute Qualifiers: Laterality: unspecified laterality Qualified Code(s): J18.9 - Pneumonia, unspecified organism Category: Medical Code(s): J18.9 - Pneumonia, unspecified organism (5) Diabetes mellitus: Status: Acute Qualifiers: Diabetes mellitus type: type 2 Diabetes mellitus terminal supervisor insulin use: without senior living use Diabetes mellitus complication status: without complication Qualified Code(s): E11.9 - Type 2 diabetes mellitus without complications Category: Medical Code(s): E11.9 - Type 2 diabetes mellitus without complications (6) Polycythemia vera: Status: Acute Category: Medical Code(s): D45 - Polycythemia vera (7) Pulmonary emphysema: Status: Acute Qualifiers: Emphysema type: centrilobular Qualified Code(s): J43.2 - Centrilobular emphysema Category: Medical Code(s): J43.9 - Emphysema, unspecified (8) RVF (right ventricular failure): Status: Acute Category: Medical Code(s): I50.810 - Right heart failure, unspecified (9) CAD (coronary artery disease): Status: Acute Qualifiers: Coronary Disease-Associated Artery/Lesion type: [place] artery [place] vs. transplanted heart: [place] heart Associated angina: without angina Qualified Code(s): I25.10 - Atherosclerotic heart disease of [place] coronary artery without angina pectoris Category: Medical Code(s): I25.10 - Atherosclerotic heart disease of [place] coronary artery without angina pectoris (10) Hypertension: Status: Acute Qualifiers: Hypertension type: unspecified Qualified Code(s): I10 - Essential (primary) hypertension Category: Medical Code(s): I10 - Essential (primary) hypertension (11) HLD (hyperlipidemia): Status: Acute Qualifiers: Hyperlipidemia type: mixed hyperlipidemia Qualified Code(s): E78.2 - Mixed hyperlipidemia Category: Medical Code(s): E78.5 - Hyperlipidemia, unspecified Plan Daniel Kwan is a 59-year-old male with a medical history significant for COPD on 2 L, severe sleep apnea, CAD with stent, hypertension, hyperlipidemia, type 2 diabetes who presents with worsening shortness of breath. He states he has not been taking his medications for many weeks and then he became increasingly short of breath over the past 2 weeks. Denies chest pain. Workup in the ED significant for a compensated ABG, D-dimer 0.85, BNP 1160. CTA chest revealed multifocal pneumonia in bilateral lungs with no evidence of PE. CXR suggests possible volume overload versus pneumonia. Initially on Vapotherm, eventually required intubation. Doing better on ventilator. Pulmonology assisting with management. Cardiology assisting with care. Continues to require ICU level care. Prognosis guarded. Problems addressed as follows: #Acute hypoxic respiratory failure # Severe sepsis #Multifocal community-acquired pneumonia # Acute COPD exacerbation ? Continue cefepime 2 g every 8 hours and azithromycin 500 mg daily - Continue steroids with methylprednisolone 40 mg IV twice daily ? Follow-up sputum, blood cultures. Blood cultures were not collected before antibiotics were started. - Continue levalbuterol, ipratropium every 4 hours along with Pulmicort twice daily - Sodium 137, potassium 4.2. Kidney function normal with BUN 28, creatinine 0.7. Repeat CBC, CMP, magnesium ordered for the morning. Phosphorus ordered for the morning due to initiation of tube feeds - per my review of chest x-ray, patient continues to have left base atelectatic findings. Small effusion on the left side. ET tube in appropriate position. - pulmonology continuing to assist with vent. Continue PEEP, decreased to 10. FiO2 80%. Rate 18 with tidal volume of 440. Repeat blood gas ordered for the morning. Goal MAP greater than 70. -Continue analgo-sedation with fentanyl and propofol. #Possible HFpEF exacerbation # CAD, hypertension, hyperlipidemia ? Discussed case with cardiology today, concern for HFpEF. Echo shows hyperdynamic EF of 70%. Moderate dilation of right ventricle with moderate RV dysfunction -Recommend no further diuresis -As patient is intubated, recommend initiating dobutamine. Blood pressure doing well with pressures of 111/64 - Coronary artery disease is likely stable. He ruled out for an TX. No plans for invasive left cardiac catheterization at this time. ? Continue home Farxiga 10 mg. - Continue Plavix 75 mg daily, aspirin 81 mg daily, pressure appropriate at this time we will hold on blood pressure location pending improvement in sepsis #Severe sleep apnea: Patient transitioned to BiPAP today. Showing improvement in his breathing. #Type 2 diabetes ? ACHS glucose checks, LDSSI. ? Continue home Farxiga. -A1c 6.9 ICU/Critical care attestation This patient is critically ill with 35 minutes devoted solely to this patient managing life/organ supporting interventions that required physician assessment. This includes time spent making adjustments in ventilator settings, IV fluid administration, titration of pressors, adjustments of medications, discussion of patient with consultants and other care providers as well as updating patient and/or family (if patient by virtue of his/her condition is unable to participate in decision making). This does not include time spent performing separately billed procedures. Time is not concurrent with that of other providers. Full code DVT prophylaxis: Lovenox 40 mg
--- NOTE | 2024-06-29 15:23 | PC.NURSE ---
Amanda, RT to bedside to adjust vent setitngs d/t pt's O2 sats staying 88%. FIO2-100%.
[2024-06-29 16:38] LABS: POC Glucose,Bedside 209 (70-110)
[2024-06-29] MEDS: FENTANYL CITRATE/PF 1,000 MCG in 0.9 % SODIUM CHLORIDE 80 ML 10 MCG IV (18:00)
--- NOTE | 2024-06-29 18:54 | PC.NURSE ---
Pt head of bed at [address], FIO2-100%, peep-10, rate-18, TV-440. RT was able to turn pt's FIO2 odwn to 80% earlier in the shift, pt initially maintained sats at 90, however, pt sats decreased to 88% and remained consistent so RT turned FIO2 back to 100. LS CTA/diminshed. Abdomen soft, bowel sounds active. f/c in place and draining. pt currently on Propofol at 40 mcg/kg/min and Fentanyl at 100 mcg/hr. pt has og in place at 60. pt did have tube feeds started today and at goal of 75 ml/hr, no residual. pt's girlfriend did come and visit but has left for the night, password in place.
[2024-06-29] MEDS: ATORVASTATIN 40MG TABLET 40 MG PO (20:47)
[2024-06-29 20:51] LABS: POC Glucose,Bedside 164 (70-110)
[2024-06-30] VITALS (43 sets, daily range): BP systolic 93–166; BP diastolic 55–97; PULSE 61–91; RESP 14–21; TEMP 36.8–37.8; O2SAT 88–97; BMI 28.8
[2024-06-30] MEDS: propofoL 100 ML 23.28 MG IV ×6 (01:13→21:09)
[2024-06-30] MEDS: IPRATROPIUM BROMIDE 0.5 MG/2.5ML SOLUTION IH ×6 (01:18→22:42)
[2024-06-30] MEDS: LEVALBUTEROL 1.25MG/3ML NEB 1.25 MG IH ×6 (01:18→22:42)
[2024-06-30] MEDS: CEFEPIME HCL 2 GM in 0.9 % SODIUM CHLORIDE 100 ML IV ×4 (01:39→23:52)
[2024-06-30] MEDS: FENTANYL CITRATE/PF 1,000 MCG in 0.9 % SODIUM CHLORIDE 80 ML 10 MCG IV ×3 (03:06→22:47)
--- NOTE | 2024-06-30 06:00 | XR_ITS ---
PROCEDURE INFORMATION: Exam: XR Chest Exam date and time: 06/30/2024 5:56 AM Age: 59 years old Clinical indication: Shortness of breath; Additional info: Pneumonia mechanical ventilation TECHNIQUE: Imaging protocol: Radiologic exam of the chest. Views: 1 view. COMPARISON: CR XR CHEST PORTABLE 06/29/2024 10:24 AM FINDINGS: Tubes, catheters and devices: Endotracheal tube projects about 8.2 cm from the nano. Enteric tube traverses midline, catheter tip and side fenestration is subdiaphragmatic in the left upper quadrant. Lungs: Similar-appearing basilar interstitial lung markings without focal consolidation. Pleural spaces: Similar blunting of the left costophrenic angle. Heart/Mediastinum: Unremarkable. No cardiomegaly. Vasculature: Atherosclerotic disease of the aortic arch. Bones/joints: Unremarkable. IMPRESSION: No significant interval change.
[2024-06-30 06:31] LABS: POC Glucose,Bedside 219 (70-110)
[2024-06-30 06:34] LABS: Basophils % 0.1 % (0.1-2.0); Hematocrit 49.2 % (42.0-52.0); Lymphocytes # 0.3 K/mm3 (0.7-4.5); Lymphocytes % 2.8 % (10-50); Mean Corpuscular HGB Conc 29.9 g/dL (31.8-35.4); Mean Corpuscular Hemoglobin 28.5 pg (27.0-31.2); Mean Corpuscular Volume 95.5 fl (80-94); Monocytes # 1.3 K/mm3 (0.1-1.0); Monocytes % 11.6 % (1.7-9.3); Neutrophils # 9.6 K/mm3 (1.8-7.8); Neutrophils % 85.1 % (37.0-80.0); Platelet Count 156 K/mm3 (142-424); Red Blood Count 5.15 M/mm3 (4.60-6.20); White Blood Count 11.3 K/mm3 (4.8-10.8)
[2024-06-30] MEDS: humaLOG 100 UNITS/ML 10ML VIAL (SSI) SUBCUT ×4 (06:35→21:09)
[2024-06-30] MEDS: BUDESONIDE 0.5MG/2ML NEB 0.5 MG IH ×2 (06:41→18:05)
[2024-06-30 06:45] LABS: Alanine Aminotransferase 14 U/L (12-78); Alkaline Phosphatase 56 U/L (38-126); Aspartate Amino Transferase 33 U/L (17-59); Bilirubin,Total 0.8 mg/dl (0.2-1.3); Blood Urea Nitrogen 47 mg/dl (9-20); Calcium 8.4 mg/dl (8.4-10.2); Chloride 94 mmol/L (98-107); Creatinine Clearance Estimated 157 mL/min (50-200); Estimated Glomerular Filt Rate 116 ml/min (>60); GFR (African American) 140 ML/MIN (>60); Glucose 246 mg/dl (74-100); Potassium 5.1 mmoL/L (3.5-5.1); Sodium 137 mmol/L (136-145); Total Protein,Serum 5.9 g/dl (6.3-8.2)
[2024-06-30 06:47] LABS: Albumin Level 3.1 g/dl (3.5-5.0); Albumin/Globulin Ratio 1.1 (1.1-1.8); Anion Gap 8.1 mEq/L (5-15); Carbon Dioxide 40 mmol/L (22.0-30.0); Globulin 2.8 g/dL (1.3-3.2)
[2024-06-30 07:10] LABS: Hemoglobin 14.8 g/dL (14.1-18.0)
[2024-06-30 07:39] LABS: Phosphorous 3.7 mg/dl (2.5-4.5)
[2024-06-30 07:50] LABS: Magnesium 2.1 mg/dl (1.6-2.3)
[2024-06-30] MEDS: METHYLPREDNISOLONE SOD SUCC 40MG VIAL 40 MG IV ×2 (08:06→21:16)
[2024-06-30] MEDS: ENOXAPARIN 40MG/0.4ML SYRINGE 40 MG SUBCUT (08:06)
[2024-06-30] MEDS: CLOPIDOGREL 75MG TAB 75 MG PO (08:06)
[2024-06-30] MEDS: ASPIRIN EC 81MG TABLET 81 MG PO (08:06)
[2024-06-30] MEDS: AZITHROMYCIN 500 MG in 0.9 % SODIUM CHLORIDE 250 ML 250 MG IV (08:49)
[2024-06-30] MEDS: FUROSEMIDE 40MG/4ML VIAL 40 MG IV (08:49)
--- NOTE | 2024-06-30 09:47 | EXP.PULM.PN ---
Subjective *Date: 06/30/24 *Time: 11:11 Interval history: No acute respiratory vents overnight Pulmonology Exam Inpatient Vital signs and Labs for Last 24 Hours: Temp Pulse Resp BP Pulse Ox O2 Del Method O2 Flow Rate 99.3 F 74 18 104/63 L 93 L Room Air 3 06/30/24 08:00 06/30/24 09:00 06/30/24 09:00 06/30/24 09:00 06/30/24 09:00 06/30/24 09:00 06/29/24 01:00 FiO2 80 06/30/24 06:41 Laboratory Results - last 24 hr 06/29/24 09:43: VBG pH 7.49 H, VBG pCO2 46.3, VBG pO2 193.8 H, VBG HCO3 34.5 H, VBG Total CO2 35.9 H, VBG O2 Saturation 99.7 H, VBG Base Excess 11.2 H, VBG Lactic Acid 1.5 06/29/24 11:04: Sodium 137, Potassium 4.2, Chloride 91 L, Carbon Dioxide 38 H, Anion Gap 12.2, BUN 28 H, Creatinine 0.70, Estimated Creat Clear 157, Estimated GFR 116, Est GFR ( Amer) 140, Glucose 177 H, Calcium 8.6, Total Bilirubin 1.2, AST 24 D, ALT 17, Alkaline Phosphatase 97, Total Protein 6.3, Albumin 3.3 L, Globulin 3.0, Albumin/Globulin Ratio 1.1 06/29/24 11:05: POC Glucose 164 H 06/29/24 16:30: POC Glucose 209 H 06/29/24 20:43: POC Glucose 164 H 06/30/24 05:32: WBC 11.3 H, RBC 5.15, Hgb 14.8 D, Hct 49.2, MCV 95.5 H, MCH 28.5, MCHC 29.9 L, RDW 16.0, Plt Count 156 D, MPV 10.0, Neut % (Auto) 85.1 H, Lymph % (Auto) 2.8 L, [place] % (Auto) 11.6 H, Eos % (Auto) 0.0 L, Baso % (Auto) 0.1, Neut # (Auto) 9.6 H, Lymph # (Auto) 0.3 L, [place] # (Auto) 1.3 H, Eos # (Auto) 0.0, Baso # (Auto) 0.0, Sodium 137, Potassium 5.1 D, Chloride 94 L, Carbon Dioxide 40 H, Anion Gap 8.1, BUN 47 H D, Creatinine 0.70, Estimated Creat Clear 157, Estimated GFR 116, Est GFR ( Amer) 140, Glucose 246 H D, Calcium 8.4, Phosphorus 3.7, Magnesium 2.1 D, Total Bilirubin 0.8, AST 33 D, ALT 14, Alkaline Phosphatase 56, Total Protein 5.9 L, Albumin 3.1 L, Globulin 2.8, Albumin/Globulin Ratio 1.1 06/30/24 06:24: POC Glucose 219 H I & O for Labs for Last 24 Hours: Intake & Output 06/27/24 06/28/24 06/29/24 06/30/24 23:59 23:59 23:59 23:59 Intake Total 1095 / 1095 1543.803 / 2253.454 1383.559 / 1646.559 367.048 / 367.048 Output Total 0 / 0 1310 / 1460 1465 / 1815 960 / 960 Balance 1095 / 1095 233.803 / 83.803 181.559 / -168.441 -592.952 / -592.952 Weight 213 lb 13.574 oz 209 lb 6.4 oz 213 lb 1.6 oz 213 lb 1.616 oz Microbiology Reports for the Last 24 Hours: Microbiology 06/28/24 04:01 Sputum - Expectorated Sputum Gram Stain - Final 06/28/24 04:01 Sputum - Expectorated Sputum Sputum Culture - Final 06/27/24 12:10 Nose - Nasal MRSA Culture - Final Negative Constitutional: Present severe distress Comment:: Intubated and Sedated Head: Present normocephalic and atraumatic Neck: Present normal inspection and trachea midline Respiratory: Present patient mechanically ventilated, prolonged expiratory phase and rhonchi Cardiac: Present S1/S2 and Tachycardia GI: Present soft; Absent distention or tenderness Skin: Present intact; Absent cyanosis Neuro: Absent alert, awake or oriented x 3 Comment:: Intubated and sedated Extremities: Present normal inspection; Absent clubbing or cyanosis Psychiatric: Present unable to assess Assessment and Plan *Assessment and plan (1) Acute exacerbation of chronic obstructive pulmonary disease (COPD): Status: Acute Category: Medical Code(s): J44.1 - Chronic obstructive pulmonary disease with (acute) exacerbation (2) Acute respiratory failure with hypoxia: Status: Acute Category: Medical Code(s): J96.01 - Acute respiratory failure with hypoxia (3) Community acquired pneumonia: Status: Acute Qualifiers: Laterality: unspecified laterality Qualified Code(s): J18.9 - Pneumonia, unspecified organism Category: Medical Code(s): J18.9 - Pneumonia, unspecified organism Plan Mr. Carmona is a 59-year-old male greater than 68-gimd-vces smoking history, COPD, sleep apnea previously refused CPAP therapy presented to the ER with worsening respiratory distress and pulmonary was called for further evaluation and management. CTA upon admission suboptimal timing, no obvious central pulmonary embolism but right lower lobe airspace disease and consolidative changes noted. AFebrile. Hemodynamically stable. Currently receicing cefepime azithromycin and steroids and nebulization therapies. On initial examination severe respiratory distress. Oxygen desaturation noted with high flow nasal cannula 40 L 100%, escalated to BiPAP therapy with saturations maintained at 89% and above. Mini respiratory viral PCR panel negative lower extremity venous Doppler negative for DVT. Echo continued to show RV dilation and reduced RV function since 2022 likely secondary to uncontrolled sleep apnea and severe COPD Nasal MRSA PCR negative. Sputum prelim gram-positive diplococci. Interval update: No acute respiratory vents overnight. Stable ventilator settings. Chest x-ray stable with no new pulmonary infiltrates. Continue to show stable small left pleural effusion. ET tube 7 cm above the nano, advanced by 2 cm. End-tidal elevated from baseline. Net negative volume status. Plan: Continue propofol and fentanyl for sedation Continue mechanical ventilatory support, currently on PEEP of 8 FiO2 of 80% rate of 20 and tidal volume of 440. Continue to wean as tolerated. Continue Xopenex and ipratropium every 4 hours along with Pulmicort every 12 scheduled Continue cefepime and azithromycin Continue methylprednisolone 40 mg twice daily IV Hemodynamically stable. MAP greater than 70. Continue tube feeds. - Continue mechanical ventilatory support - Continue AnalgoSedation with Propofol and Fentanyl with CPOT gal less than or euqal to 2 and RASS goal of to 2 (No need for deep sedation) - VAP bundle Recommend elevate head of the bed at 30 to 45 degrees Recommend oral care with chlorhexidne Recommend GI ulcer prophylaxis - Famotidine 20mg IV BID Recommend chemical DVT prophylaxis Total critical care time spent on this patient is 35 minutes managing acute hypoxic respiratory failure needing mechanical ventilation. This time spent include reviewing test results including interpreting chest x-rays, labs and optimizing the ventilator settings,formulating plan of care, discussing the plan of care with the team and the nursing staff.
--- NOTE | 2024-06-30 10:21 | XR_ITS ---
FINAL REPORT CLINICAL HISTORY: et placement COMPARISON: 06/30/2024 FINDINGS: A single view of the chest was obtained. The endotracheal tube terminates 7 cm superior to the nano. The heart is normal in size. The mediastinum is unremarkable. There has been no significant change in basilar atelectasis. There is no pleural effusion. There is no pneumothorax. There is no acute osseous abnormality. IMPRESSION: Endotracheal tube terminates 7 cm superior to the nano. Otherwise, no significant change. Reviewed, Interpreted and Dictated by Ryan Moya MD Transcribed by Rhonda De Jesus Authenticated and . [facility]
--- NOTE | 2024-06-30 10:22 | PC.NURSE ---
portable xray at bedside
--- NOTE | 2024-06-30 10:39 | PC.NURSE ---
ET tube advanced by 2cm to 26 at the teeth per Dr Shaw
--- NOTE | 2024-06-30 10:40 | PC.NURSE ---
New vent settings per Dr Shaw: 440 20R 8PEEP and 80%
--- NOTE | 2024-06-30 10:44 | DIET.NUTRFU ---
Addendum entered by Kaia King, MICHELLE, LD 06/30/24 12:39: decrease TF to accommodate the propofol dose, change goal rate to 65ml/hr to provide 1560ml/kcal and 41.8gm protein and 1330ml formula water plus flush of 800ml/day for total fluid of 2130ml/day. labs reviewed 137 Na, 5.1K, BS 164-246 insulin ordered. NO BM noted since 06/26, will continue to monitor may benefit from medication regimen Original Note: Patient will try to wean off vent today. Current TF is at goal rate of 75ml/hr. If need continue may need to decrease rate based on propofol dose yesterday of 209.52ml/day providing 230.42kcal. will re-eval is TF continues and unable to wean
[2024-06-30 11:11] LABS: POC Glucose,Bedside 201 (70-110)
--- NOTE | 2024-06-30 14:43 | EXP.ACUTE.PN ---
Subjective *Date: 06/30/24 *Time: 14:43 Interval history: intubated, currently on ventilator. Appears comfortable. Afebrile overnight. Significant other at bedside today. Medical Exam Vital signs and Labs for Last 24 Hours: Vital Signs Temp Pulse Pulse Resp BP Pulse Ox O2 Del Method 06/30/24 14:00 99/55 L 06/30/24 14:00 67 20 90 L 06/30/24 13:56 20 93 L 06/30/24 13:30 72 20 94 L 06/30/24 13:17 69 06/30/24 13:17 75 06/30/24 13:00 105/61 L 06/30/24 13:00 68 20 97 06/30/24 13:00 Mechanical Ventilation 06/30/24 12:30 67 20 95 06/30/24 12:00 Mechanical Ventilation 06/30/24 12:00 100.0 F H 06/30/24 12:00 112/73 06/30/24 12:00 73 19 92 L 06/30/24 11:00 71 20 88 L 06/30/24 11:00 118/70 06/30/24 11:00 Mechanical Ventilation 06/30/24 10:36 75 06/30/24 10:36 75 06/30/24 10:36 90 L 06/30/24 10:00 110/69 06/30/24 10:00 74 18 91 L 06/30/24 09:00 104/63 L 06/30/24 09:00 74 18 93 L 06/30/24 09:00 Room Air 06/30/24 08:15 76 06/30/24 08:00 Mechanical Ventilation 06/30/24 08:00 106/66 L 06/30/24 08:00 71 18 92 L 06/30/24 08:00 99.3 F 06/30/24 07:00 91 H 16 92 L 06/30/24 07:00 98/66 L 06/30/24 07:00 76 18 98/66 L 91 L Mechanical Ventilation 06/30/24 06:54 Mechanical Ventilation 06/30/24 06:41 95 06/30/24 06:00 64 14 120/75 93 L Mechanical Ventilation 06/30/24 06:00 120/75 06/30/24 05:30 72 18 95 06/30/24 05:00 Mechanical Ventilation 06/30/24 05:00 109/64 L 06/30/24 05:00 71 18 109/64 L 95 Mechanical Ventilation 06/30/24 04:30 69 18 95 06/30/24 04:05 18 93 L 06/30/24 04:00 110/63 06/30/24 04:00 99.8 F H 75 18 110/63 93 L Mechanical Ventilation 06/30/24 04:00 74 95 Mechanical Ventilation 06/30/24 04:00 70 06/30/24 03:30 69 18 93 L 06/30/24 03:00 101/57 L 06/30/24 03:00 75 17 92 L 06/30/24 03:00 Mechanical Ventilation 06/30/24 02:00 107/62 L 06/30/24 02:00 71 19 107/62 L 91 L Mechanical Ventilation 06/30/24 02:00 18 92 L 06/30/24 01:30 71 18 91 L 06/30/24 01:18 78 06/30/24 01:18 76 06/30/24 01:00 111/61 06/30/24 01:00 75 18 111/61 92 L Mechanical Ventilation 06/30/24 01:00 Mechanical Ventilation 06/30/24 00:30 72 19 92 L 06/30/24 00:00 70 06/30/24 00:00 73 91 L Mechanical Ventilation 06/30/24 00:00 110/58 L 06/30/24 00:00 71 14 110/58 L 92 L Mechanical Ventilation 06/29/24 23:56 18 92 L 06/29/24 23:30 68 91 L 06/29/24 23:00 Mechanical Ventilation 06/29/24 23:00 111/64 06/29/24 23:00 62 19 111/64 91 L Mechanical Ventilation 06/29/24 22:30 68 92 L 06/29/24 22:00 112/67 06/29/24 22:00 71 18 112/67 92 L Mechanical Ventilation 06/29/24 22:00 18 92 L 06/29/24 21:30 63 18 112/67 Mechanical Ventilation 06/29/24 21:16 74 06/29/24 21:16 77 06/29/24 21:00 Mechanical Ventilation 06/29/24 21:00 112/67 06/29/24 21:00 72 18 112/67 94 L Mechanical Ventilation 06/29/24 20:30 65 18 94 L 06/29/24 20:26 18 94 L 06/29/24 20:00 60 06/29/24 20:00 75 92 L Mechanical Ventilation 06/29/24 20:00 99.1 F 68 15 107/66 L 94 L Mechanical Ventilation 06/29/24 20:00 18 06/29/24 19:30 65 18 95 06/29/24 19:00 97/59 L 06/29/24 19:00 75 18 91 L 06/29/24 19:00 Mechanical Ventilation 06/29/24 19:00 66 18 97/59 L 95 Mechanical Ventilation 06/29/24 18:42 66 06/29/24 18:42 69 06/29/24 18:42 94 L Mechanical Ventilation 06/29/24 18:42 18 94 L 06/29/24 18:30 63 17 96 06/29/24 18:00 103/63 L 06/29/24 18:00 65 20 94 L 06/29/24 17:52 06/29/24 17:52 74 18 110/67 94 L Mechanical Ventilation 06/29/24 17:30 68 18 95 06/29/24 17:00 110/67 06/29/24 17:00 64 15 97 06/29/24 17:00 Mechanical Ventilation 06/29/24 17:00 77 18 110/67 97 Mechanical Ventilation 06/29/24 16:39 99.8 F H 06/29/24 16:30 72 18 95 06/29/24 16:00 103/57 L 06/29/24 16:00 69 93 L 06/29/24 16:00 99.1 F 06/29/24 16:00 18 95 Mechanical Ventilation 06/29/24 16:00 78 18 103/57 L 95 Mechanical Ventilation 06/29/24 15:30 63 91 L 06/29/24 15:00 65 88 L 06/29/24 15:00 97/60 L 06/29/24 14:57 Mechanical Ventilation 06/29/24 14:57 60 20 112/67 88 L Mechanical Ventilation FiO2 06/30/24 14:00 06/30/24 14:00 06/30/24 13:56 80 06/30/24 13:30 06/30/24 13:17 06/30/24 13:17 06/30/24 13:00 06/30/24 13:00 06/30/24 13:00 06/30/24 12:30 06/30/24 12:00 06/30/24 12:00 06/30/24 12:00 06/30/24 12:00 06/30/24 11:00 06/30/24 11:00 06/30/24 11:00 06/30/24 10:36 06/30/24 10:36 06/30/24 10:36 80 06/30/24 10:00 06/30/24 10:00 06/30/24 09:00 06/30/24 09:00 06/30/24 09:00 06/30/24 08:15 06/30/24 08:00 06/30/24 08:00 06/30/24 08:00 06/30/24 08:00 06/30/24 07:00 06/30/24 07:00 06/30/24 07:00 06/30/24 06:54 06/30/24 06:41 80 06/30/24 06:00 06/30/24 06:00 06/30/24 05:30 06/30/24 05:00 06/30/24 05:00 06/30/24 05:00 06/30/24 04:30 06/30/24 04:05 90 06/30/24 04:00 06/30/24 04:00 06/30/24 04:00 90 06/30/24 04:00 06/30/24 03:30 06/30/24 03:00 06/30/24 03:00 06/30/24 03:00 06/30/24 02:00 06/30/24 02:00 06/30/24 02:00 90 06/30/24 01:30 06/30/24 01:18 06/30/24 01:18 06/30/24 01:00 06/30/24 01:00 06/30/24 01:00 06/30/24 00:30 06/30/24 00:00 06/30/24 00:00 90 06/30/24 00:00 06/30/24 00:00 06/29/24 23:56 90 06/29/24 23:30 06/29/24 23:00 06/29/24 23:00 06/29/24 23:00 06/29/24 22:30 06/29/24 22:00 06/29/24 22:00 06/29/24 22:00 90 06/29/24 21:30 06/29/24 21:16 06/29/24 21:16 06/29/24 21:00 06/29/24 21:00 06/29/24 21:00 06/29/24 20:30 06/29/24 20:26 90 06/29/24 20:00 06/29/24 20:00 90 06/29/24 20:00 06/29/24 20:00 06/29/24 19:30 06/29/24 19:00 06/29/24 19:00 06/29/24 19:00 06/29/24 19:00 06/29/24 18:42 06/29/24 18:42 06/29/24 18:42 06/29/24 18:42 100 06/29/24 18:30 06/29/24 18:00 06/29/24 18:00 06/29/24 17:52 100 06/29/24 17:52 06/29/24 17:30 06/29/24 17:00 06/29/24 17:00 06/29/24 17:00 06/29/24 17:00 06/29/24 16:39 06/29/24 16:30 06/29/24 16:00 06/29/24 16:00 06/29/24 16:00 06/29/24 16:00 100 06/29/24 16:00 06/29/24 15:30 06/29/24 15:00 06/29/24 15:00 06/29/24 14:57 06/29/24 14:57 Intake and Output 06/29/24 06/30/24 06/30/24 23:59 07:59 15:59 Intake Total 657.000 / 1646.559 267.048 / 910.168 643.12 / 910.168 Output Total 705 / 1815 625 / 2235 1610 / 2235 Balance -48.000 / -168.441 -357.952 / -1324.832 -966.88 / -1324.832 Intake: Intake, Tube Feeding Amount 160 / 175 Intake, Total IV Amount 497.000 / 1471.559 267.048 / 910.168 643.12 / 910.168 Azithromycin 500 mg In 0.9 % 250 / 500 250 / 250 Sodium Chloride 250 ml @ 250 mls/hr IV Q24H [facility] Rx#:[id number] Cefepime HCl 2 gm In 0.9 % 100 / 200 100 / 100 Sodium Chloride 100 ml @ 200 mls/hr IV Q12H [facility] Rx#:[id number] Output: Output, Urine Amount 550 / 640 Output, Urine Amount (Catheter) 155 / 1175 625 / 2235 1610 / 2235 Muhammad 155 / 1175 625 / 2235 1610 / 2235 Other: Number of Unmeasured Voids 0 0 Weight 96.661 kg Patient Weight 06/30/24 23:59 Weight 96.661 kg Laboratory Results - last 24 hr 06/29/24 16:30: POC Glucose 209 H 06/29/24 20:43: POC Glucose 164 H 06/30/24 05:32: WBC 11.3 H, RBC 5.15, Hgb 14.8 D, Hct 49.2, MCV 95.5 H, MCH 28.5, MCHC 29.9 L, RDW 16.0, Plt Count 156 D, MPV 10.0, Neut % (Auto) 85.1 H, Lymph % (Auto) 2.8 L, [place] % (Auto) 11.6 H, Eos % (Auto) 0.0 L, Baso % (Auto) 0.1, Neut # (Auto) 9.6 H, Lymph # (Auto) 0.3 L, [place] # (Auto) 1.3 H, Eos # (Auto) 0.0, Baso # (Auto) 0.0, Sodium 137, Potassium 5.1 D, Chloride 94 L, Carbon Dioxide 40 H, Anion Gap 8.1, BUN 47 H D, Creatinine 0.70, Estimated Creat Clear 157, Estimated GFR 116, Est GFR ( Amer) 140, Glucose 246 H D, Calcium 8.4, Phosphorus 3.7, Magnesium 2.1 D, Total Bilirubin 0.8, AST 33 D, ALT 14, Alkaline Phosphatase 56, Total Protein 5.9 L, Albumin 3.1 L, Globulin 2.8, Albumin/Globulin Ratio 1.1 06/30/24 06:24: POC Glucose 219 H 06/30/24 11:04: POC Glucose 201 H I & O for Labs for Last 24 Hours: Intake & Output 06/27/24 06/28/24 06/29/24 06/30/24 23:59 23:59 23:59 23:59 Intake Total 1095 / 1095 1543.803 / 5183.174 9028.559 / 1646.559 910.168 / 910.168 Output Total 0 / 0 1310 / 1460 1465 / 1815 2235 / 2235 Balance 1095 / 1095 233.803 / 83.803 181.559 / -168.441 -1324.832 / -1324.832 Weight 97 kg 94.982 kg 96.661 kg 96.661 kg Microbiology Reports for the Last 24 Hours: Microbiology 06/28/24 04:01 Sputum - Expectorated Sputum Gram Stain - Final 06/28/24 04:01 Sputum - Expectorated Sputum Sputum Culture - Final Constitutional: Present no acute distress, chronically ill appearing and somnolent Head: Present atraumatic and normocephalic ENT: Present normal exam Comment:: ET tube in place, OG in place Neck: Present normal inspection Respiratory: Present patient mechanically ventilated, prolonged expiratory phase and crackles (LLL); Absent respiratory distress, rhonchi or wheezes Cardiac: Present Reg Rate and Rhythm GI: Present soft and normal bowel sounds; Absent distention or tenderness Extremities: Present normal inspection; Absent edema Skin: Present intact; Absent erythema Neuro: Present moves all extremities (Spontaneous); Absent alert, awake or oriented x 3 Comment:: Sedated Assessment and Plan *Assessment and plan (1) Severe sepsis: Status: Acute Category: Medical Code(s): A41.9 - Sepsis, unspecified organism; R65.20 - Severe sepsis without septic shock (2) Acute respiratory failure with hypoxia: Status: Acute Category: Medical Code(s): J96.01 - Acute respiratory failure with hypoxia (3) Acute exacerbation of chronic obstructive pulmonary disease (COPD): Status: Acute Category: Medical Code(s): J44.1 - Chronic obstructive pulmonary disease with (acute) exacerbation (4) Community acquired pneumonia: Status: Acute Qualifiers: Laterality: unspecified laterality Qualified Code(s): J18.9 - Pneumonia, unspecified organism Category: Medical Code(s): J18.9 - Pneumonia, unspecified organism (5) Diabetes mellitus: Status: Acute Qualifiers: Diabetes mellitus type: type 2 Diabetes 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: without truck terminal manager use Diabetes mellitus complication status: without complication Qualified Code(s): E11.9 - Type 2 diabetes mellitus without complications Category: Medical Code(s): E11.9 - Type 2 diabetes mellitus without complications (6) Polycythemia vera: Status: Acute Category: Medical Code(s): D45 - Polycythemia vera (7) Pulmonary emphysema: Status: Acute Qualifiers: Emphysema type: centrilobular Qualified Code(s): J43.2 - Centrilobular emphysema Category: Medical Code(s): J43.9 - Emphysema, unspecified (8) RVF (right ventricular failure): Status: Acute Category: Medical Code(s): I50.810 - Right heart failure, unspecified (9) CAD (coronary artery disease): Status: Acute Qualifiers: Coronary Disease-Associated Artery/Lesion type: [place] artery [place] vs. transplanted heart: [place] heart Associated angina: without angina Qualified Code(s): I25.10 - Atherosclerotic heart disease of [place] coronary artery without angina pectoris Category: Medical Code(s): I25.10 - Atherosclerotic heart disease of [place] coronary artery without angina pectoris (10) Hypertension: Status: Acute Qualifiers: Hypertension type: unspecified Qualified Code(s): I10 - Essential (primary) hypertension Category: Medical Code(s): I10 - Essential (primary) hypertension (11) HLD (hyperlipidemia): Status: Acute Qualifiers: Hyperlipidemia type: mixed hyperlipidemia Qualified Code(s): E78.2 - Mixed hyperlipidemia Category: Medical Code(s): E78.5 - Hyperlipidemia, unspecified Plan Daniel Kwan is a 59-year-old male with a medical history significant for COPD on 2 L, severe sleep apnea, CAD with stent, hypertension, hyperlipidemia, type 2 diabetes who presents with worsening shortness of breath. He states he has not been taking his medications for many weeks and then he became increasingly short of breath over the past 2 weeks. Denies chest pain. Workup in the ED significant for a compensated ABG, D-dimer 0.85, BNP 1160. CTA chest revealed multifocal pneumonia in bilateral lungs with no evidence of PE. CXR suggests possible volume overload versus pneumonia. Initially on Vapotherm, eventually required intubation. Doing better on ventilator. Pulmonology assisting with management. Cardiology assisting with care. Continues to require ICU level care. Prognosis guarded. Problems addressed as follows: #Acute hypoxic respiratory failure # Severe sepsis #Multifocal community-acquired pneumonia # Acute COPD exacerbation ? Continue cefepime 2 g every 8 hours and azithromycin 500 mg daily - Continue steroids with methylprednisolone 40 mg IV twice daily ? Follow-up sputum, blood cultures. Blood cultures were not collected before antibiotics were started. -Sodium 137, potassium 5.1, magnesium 2.1, phosphorus 3.7, calcium 8.4. Kidney function with BUN 47, creatinine 0.7. Making good urine. Repeat CBC, CMP, magnesium ordered for the morning. -Tolerating tube feeds. - per my review of chest x-ray, patient continues to have left base atelectatic findings vs effusion on the left side. ET tube in appropriate position 6.5cm above nano -Continue mechanical ventilation. Weaning settings per pulmonology recommendations. PEEP of 8, FiO2 80%, rate 20, tidal volume 440. - Continue Xopenex ipratropium every 4 hours and Pulmicort twice daily. Continue cefepime and azithromycin IV. Continue methylprednisolone 40 mg twice daily IV. -Tylenol for fever, elevated temps of 99 today. No eduar fever however. - No bowel movement since admission. Docusate and senna scheduled twice daily until bowel movement. As needed thereafter -Continue analgo-sedation with fentanyl and propofol. #Possible HFpEF exacerbation # CAD, hypertension, hyperlipidemia ? Discussed case cardiology, signing off today. Feel most of his abnormalities with disorder due to respiratory failure. Discontinue dobutamine yesterday afternoon. -Lasix 40 mg IV once today. - Coronary artery disease is likely stable. He ruled out for an NM. No plans for invasive left cardiac catheterization at this time. ? Continue home Farxiga 10 mg. - Continue Plavix 75 mg daily, aspirin 81 mg daily, pressure appropriate at this time we will hold on blood pressure location pending improvement in sepsis #Type 2 diabetes ? ACHS glucose checks, increase to high intensity sliding scale. Glucose 241 on morning labs. ? Continue home Farxiga. ICU/Critical care attestation This patient is critically ill with 35 minutes devoted solely to this patient managing life/organ supporting interventions that required physician assessment. This includes time spent making adjustments in ventilator settings, IV fluid administration, titration of pressors, adjustments of medications, discussion of patient with consultants and other care providers as well as updating patient and/or family (if patient by virtue of his/her condition is unable to participate in decision making). This does not include time spent performing separately billed procedures. Time is not concurrent with that of other providers. Full code DVT prophylaxis: Lovenox 40 mg Tube feeds at goal
--- NOTE | 2024-06-30 17:53 | PC.NURSE ---
VS stable and patient remained on mechanical ventilation, fio2 80% TV 440 Peep 8 RR 20. Patient tolerating tube feeding, no residuals. Lung sounds diminished, patient turned q2. Patient had a slight fever during shift, md aware, told to monitor, fever started to go down naturally. Patient diuresed over 1L during shift.
[2024-06-30] MEDS: ATORVASTATIN 40MG TABLET 40 MG PO (21:16)
--- NOTE | 2024-06-30 23:00 | PC.NURSE ---
complete bath with linen change. et tube gibson changed per RT.
--- NOTE | 2024-06-30 23:24 | XR_ITS ---
PROCEDURE INFORMATION: Exam: XR Chest Exam date and time: 06/30/2024 11:34 PM Age: 59 years old Clinical indication: Other: Og secretions TECHNIQUE: Imaging protocol: Radiologic exam of the chest. Views: 1 view. COMPARISON: CR XR CHEST PORTABLE 06/30/2024 10:17 AM FINDINGS: Tubes, catheters and devices: There is an endotracheal tube in place, tip projects over the mid trachea. The enteric tube extends below the diaphragm but the tip is not seen and the tube may be high in location, consider dedicated abdominal radiographs to better ascertain positioning. Lungs: Improving aeration at the left lung base. Pleural spaces: No large effusion or pneumothorax. Heart/Mediastinum: No evidence of mediastinal widening or cardiac silhouette enlargement; the mediastinum and heart appear within normal limits for contour and size. Vasculature: There are calcifications of the aortic arch. Bones/joints: No evidence of acute osseous abnormalities within the visualized portions of the thoracic spine and ribs. Osseous structures appear appropriate for patient age. IMPRESSION: The enteric tube extends below the diaphragm but the tip is not seen and the tube may be high in location, consider dedicated abdominal radiographs to better ascertain positioning.
[2024-06-30 23:56] LABS: Occult Blood,Gastric Fluid Positive (Negative)
[2024-07-01] VITALS (42 sets, daily range): BP systolic 86–149; BP diastolic 51–96; PULSE 48–93; RESP 16–21; TEMP 36.8–37.3; O2SAT 90–97; BMI 28.0
--- NOTE | 2024-07-01 00:22 | PC.NURSE ---
allevyn dressing applied to coccyx, d/t redness. pt Q2 turn.
[2024-07-01] MEDS: propofoL 100 ML 29.1 MG IV (00:37)
[2024-07-01] MEDS: IPRATROPIUM BROMIDE 0.5 MG/2.5ML SOLUTION IH ×6 (01:39→21:53)
[2024-07-01] MEDS: LEVALBUTEROL 1.25MG/3ML NEB 1.25 MG IH ×6 (01:39→21:53)
[2024-07-01] MEDS: propofoL 100 ML 17.46 MG IV ×2 (04:07→09:56)
--- NOTE | 2024-07-01 04:23 | PC.NURSE ---
During 399 assessments patient residual checked per OG tube. 40ml eduar red blood removed from stomach. Provider aware, new orders at this time. See MAR. Patient placed on LWIS.
--- NOTE | 2024-07-01 04:26 | XR_ITS ---
PROCEDURE INFORMATION: Exam: XR Abdomen Exam date and time: 07/01/2024 4:51 AM Age: 59 years old Clinical indication: Other: Gi bleed TECHNIQUE: Imaging protocol: Radiologic exam of the abdomen. Views: Frontal supine view of the abdomen. 1 View. COMPARISON: CR XR KUB 04/12/2023 1:59 PM FINDINGS: Tubes, catheters and devices: Enteric tube traverses midline, catheter tip and side fenestration is subdiaphragmatic in the left upper quadrant. Gastrointestinal tract: Moderate colonic stool burden. Paucity of small bowel gas may be secondary to fluid-filled loops of bowel. Bones/joints: Heterotopic ossifications are partially evaluated in the vicinity of the right femoroacetabular joint. Sacroiliac joints appear partially effaced. IMPRESSION: 1. Enteric tube as above. 2. Nonspecific bowel findings which can be seen in enteritis with superimposed constipation. Correlate clinically.
[2024-07-01] MEDS: PANTOPRAZOLE SODIUM 80 MG in 0.9 % SODIUM CHLORIDE 100 ML 10 MG IV (04:41)
--- NOTE | 2024-07-01 05:00 | PC.NURSE ---
Per provider request, TRN performed gastric lavage at bedside. Pt still producing red tinged blood after 1500 ml lavage, with removal of 1300ml. VSS during procedure, and patient placed back on LWIS. Provider at bedside during lavage.
[2024-07-01 05:33] LABS: Basophils % 0.2 % (0.1-2.0); Hematocrit 46.8 % (42.0-52.0); Lymphocytes # 0.5 K/mm3 (0.7-4.5); Lymphocytes % 4.2 % (10-50); Mean Corpuscular HGB Conc 29.9 g/dL (31.8-35.4); Mean Corpuscular Hemoglobin 28.7 pg (27.0-31.2); Mean Corpuscular Volume 95.9 fl (80-94); Mean Platelet Volume 9.9 fl (7.4-10.4); Monocytes % 8.9 % (1.7-9.3); Neutrophils # 9.8 K/mm3 (1.8-7.8); Neutrophils % 86.3 % (37.0-80.0); Platelet Count 151 K/mm3 (142-424); Red Blood Count 4.88 M/mm3 (4.60-6.20); Red Cell Distribution Width 15.9 % (11.5-17.5); White Blood Count 11.3 K/mm3 (4.8-10.8)
[2024-07-01 05:42] LABS: Alanine Aminotransferase 17 U/L (12-78); Albumin Level 3.1 g/dl (3.5-5.0); Albumin/Globulin Ratio 1.2 (1.1-1.8); Alkaline Phosphatase 65 U/L (38-126); Aspartate Amino Transferase 22 U/L (17-59); Bilirubin,Total 0.6 mg/dl (0.2-1.3); Blood Urea Nitrogen 42 mg/dl (9-20); Calcium 8.5 mg/dl (8.4-10.2); Chloride 94 mmol/L (98-107); Creatinine Clearance Estimated 153 mL/min (50-200); Estimated Glomerular Filt Rate 116 ml/min (>60); GFR (African American) 140 ML/MIN (>60); Globulin 2.6 g/dL (1.3-3.2); Glucose 206 mg/dl (74-100); Phosphorous 3.8 mg/dl (2.5-4.5); Potassium 4.6 mmoL/L (3.5-5.1); Sodium 136 mmol/L (136-145); Total Protein,Serum 5.7 g/dl (6.3-8.2)
[2024-07-01 05:44] LABS: Activated Partial Thrombo Time 25.3 seconds (22.8-30.6); Anion Gap 6.6 mEq/L (5-15); INR 1.02 (0.9-1.1); Prothrombin Time 11.4 seconds (10.1-12.5)
[2024-07-01 05:48] LABS: Carbon Dioxide 37 mmol/L (22.0-30.0)
[2024-07-01] MEDS: BUDESONIDE 0.5MG/2ML NEB 0.5 MG IH ×2 (06:11→18:30)
[2024-07-01 06:40] LABS: Fibrinogen 414 mg/dL (229.9-363.5)
[2024-07-01] MEDS: humaLOG 100 UNITS/ML 10ML VIAL (SSI) SUBCUT ×2 (06:45→11:43)
[2024-07-01] MEDS: CEFEPIME HCL 2 GM in 0.9 % SODIUM CHLORIDE 100 ML IV ×2 (07:55→16:58)
[2024-07-01] MEDS: FENTANYL CITRATE/PF 1,000 MCG in 0.9 % SODIUM CHLORIDE 80 ML 10 MCG IV ×2 (09:14→20:28)
[2024-07-01] MEDS: SODIUM PHOS/BIPHOSPHATE FLEET 133ML ENEMA 133 ML RC (09:15)
[2024-07-01] MEDS: PANTOPRAZOLE 40MG VIAL 40 MG IV ×2 (09:15→23:08)
[2024-07-01] MEDS: METHYLPREDNISOLONE SOD SUCC 40MG VIAL 40 MG IV ×2 (09:15→23:08)
[2024-07-01] MEDS: SODIUM CHLORIDE 0.9% 10ML VIAL 10 ML IV (09:15)
[2024-07-01] MEDS: AZITHROMYCIN 500 MG in 0.9 % SODIUM CHLORIDE 250 ML 250 MG IV (09:15)
--- NOTE | 2024-07-01 10:15 | P.PN_ITS ---
Subjective *Date: 07/01/24 *Time: 10:15 Medical Exam Vital signs and Labs for Last 24 Hours: Vital Signs Temp Pulse Resp BP Pulse Ox O2 Del Method FiO2 07/01/24 10:03 67 07/01/24 10:03 69 07/01/24 10:03 93 L Mechanical Ventilation 75 07/01/24 10:03 20 93 L 75 07/01/24 10:00 93/60 L 93 L Mechanical Ventilation 07/01/24 10:00 70 20 93 L 07/01/24 09:30 70 18 94 L 07/01/24 09:00 Mechanical Ventilation 07/01/24 09:00 98.7 F 63 20 109/64 L 90 L 07/01/24 08:00 Mechanical Ventilation 75 07/01/24 08:00 98.7 F 07/01/24 08:00 112/66 93 L Mechanical Ventilation 07/01/24 08:00 67 20 94 L 07/01/24 07:00 58 L 20 106/59 L 92 L Mechanical Ventilation 07/01/24 07:00 Mechanical Ventilation 07/01/24 06:21 98.2 F 07/01/24 06:13 61 07/01/24 06:13 64 07/01/24 06:13 93 L Mechanical Ventilation 75 07/01/24 06:13 20 93 L 75 07/01/24 06:00 60 20 107/63 L 94 L Mechanical Ventilation 07/01/24 05:00 48 L 19 114/69 95 Mechanical Ventilation 07/01/24 05:00 Mechanical Ventilation 07/01/24 04:09 20 94 L 75 07/01/24 04:00 68 20 92/54 L 93 L Mechanical Ventilation 07/01/24 04:00 98.2 F 63 20 100/61 L 93 L Mechanical Ventilation 07/01/24 04:00 66 07/01/24 03:00 62 20 87/53 L 93 L Mechanical Ventilation 07/01/24 03:00 98.2 F 67 20 86/53 L 92 L Mechanical Ventilation 07/01/24 03:00 Mechanical Ventilation 07/01/24 02:00 20 90 07/01/24 02:00 67 20 104/63 L 92 L Mechanical Ventilation 07/01/24 01:54 20 93 L 90 07/01/24 01:39 72 07/01/24 01:39 67 07/01/24 01:15 99.2 F 69 20 111/58 L 91 L Mechanical Ventilation 07/01/24 00:48 Mechanical Ventilation 07/01/24 00:48 70 20 117/68 92 L Mechanical Ventilation 07/01/24 00:44 20 90 L 90 06/30/24 23:45 20 90 L Mechanical Ventilation 70 06/30/24 23:45 76 20 166/97 H 90 L Mechanical Ventilation 06/30/24 23:00 74 20 166/97 H 91 L Mechanical Ventilation 06/30/24 23:00 Mechanical Ventilation 06/30/24 23:00 75 20 166/97 H 90 L Nasal Cannula, Mechanical Ventilation 06/30/24 22:42 72 06/30/24 22:42 75 06/30/24 22:42 21 93 L 70 06/30/24 22:00 70 06/30/24 22:00 61 20 103/64 L 92 L Mechanical Ventilation 06/30/24 21:00 Mechanical Ventilation 06/30/24 21:00 99 F 64 20 107/63 L 93 L Mechanical Ventilation 06/30/24 20:00 98.2 F 67 20 104/61 L 93 L Mechanical Ventilation 06/30/24 19:55 20 93 L 70 06/30/24 19:53 20 94 L Mechanical Ventilation 70 06/30/24 19:53 98.2 F 65 20 102/61 L 94 L Mechanical Ventilation 06/30/24 19:00 63 20 92 L 06/30/24 19:00 102/61 L 06/30/24 18:32 Mechanical Ventilation 06/30/24 18:05 62 06/30/24 18:05 63 06/30/24 18:05 95 Mechanical Ventilation 06/30/24 18:05 20 95 80 06/30/24 18:00 62 20 95 06/30/24 18:00 94/60 L 06/30/24 17:00 61 21 95 06/30/24 17:00 93/62 L 06/30/24 17:00 Mechanical Ventilation 06/30/24 16:05 Mechanical Ventilation 06/30/24 16:00 69 06/30/24 16:00 99.7 F H 06/30/24 16:00 96/56 L 06/30/24 16:00 63 20 93 L 06/30/24 15:00 63 20 89 L 06/30/24 15:00 102/66 L 06/30/24 15:00 Mechanical Ventilation 06/30/24 14:00 99/55 L 06/30/24 14:00 67 20 90 L 06/30/24 13:56 20 93 L 80 06/30/24 13:30 72 20 94 L 06/30/24 13:17 69 06/30/24 13:17 75 06/30/24 13:00 105/61 L 06/30/24 13:00 68 20 97 06/30/24 13:00 Mechanical Ventilation 06/30/24 12:30 67 20 95 06/30/24 12:00 73 06/30/24 12:00 Mechanical Ventilation 06/30/24 12:00 100.0 F H 06/30/24 12:00 112/73 06/30/24 12:00 73 19 92 L 06/30/24 11:00 71 20 88 L 06/30/24 11:00 118/70 06/30/24 11:00 Mechanical Ventilation 06/30/24 10:36 75 06/30/24 10:36 75 06/30/24 10:36 90 L 80 Intake and Output 06/30/24 07/01/24 07/01/24 23:59 07:59 15:59 Intake Total 2992.047 / 3902.215 232.01 / 532.010 300.000 / 532.010 Output Total 605 / 2890 940 / 1100 160 / 1100 Balance 2387.047 / 1012.215 -707.99 / -567.990 140.000 / -567.990 Intake: Intake, Tube Feeding Amount 1950 Intake, Tube Irrigant Amount 600 / 600 Intake, Total IV Amount 441.047 / 1351.215 232.01 / 532.010 300.000 / 532.010 Cefepime HCl 2 gm In 0.9 % 100 / 200 100 / 200 100 / 200 Sodium Chloride 100 ml @ 200 mls/hr IV Q12H [facility] Rx#:[id number] Output: Output, Urine Amount 600 / 600 0 / 600 Output, Urine Amount (Catheter) 605 / 2890 340 / 500 160 / 500 Muhammad 605 / 2890 340 / 500 160 / 500 Other: Number of Unmeasured Voids 0 0 0 Weight 93.894 kg Patient Weight 07/01/24 23:59 Weight 93.894 kg Laboratory Results - last 24 hr 06/30/24 11:04: POC Glucose 201 H 06/30/24 23:24: Gastric Occult Blood Positive 07/01/24 05:20: WBC 11.3 H, RBC 4.88, Hgb 14.0 L, Hct 46.8, MCV 95.9 H, MCH 28.7, MCHC 29.9 L, RDW 15.9, Plt Count 151, MPV 9.9, Neut % (Auto) 86.3 H, Lymph % (Auto) 4.2 L, [place] % (Auto) 8.9, Eos % (Auto) 0.0 L, Baso % (Auto) 0.2, Neut # (Auto) 9.8 H, Lymph # (Auto) 0.5 L, [place] # (Auto) 1.0, Eos # (Auto) 0.0, Baso # (Auto) 0.0, PT 11.4, INR 1.02, APTT 25.3, Fibrinogen 414 H, Sodium 136, Potassium 4.6, Chloride 94 L, Carbon Dioxide 37 H, Anion Gap 6.6, BUN 42 H, Creatinine 0.70, Estimated Creat Clear 153, Estimated GFR 116, Est GFR ( Amer) 140, Glucose 206 H, Calcium 8.5, Phosphorus 3.8, Magnesium 2.0, Total Bilirubin 0.6, AST 22 D, ALT 17, Alkaline Phosphatase 65, Total Protein 5.7 L, Albumin 3.1 L, Globulin 2.6, Albumin/Globulin Ratio 1.2 I & O for Labs for Last 24 Hours: Intake & Output 06/28/24 06/29/24 06/30/24 07/01/24 23:59 23:59 23:59 23:59 Intake Total 1543.803 / 1445.517 9487.559 / 5298.913 9396.215 / 3902.215 532.010 / 532.010 Output Total 1310 / 1460 1465 / 1815 2890 / 2890 1100 / 1100 Balance 233.803 / 83.803 181.559 / -965.967 2324.215 / 1012.215 -567.990 / - 567.990 Weight 94.982 kg 96.661 kg 96.661 kg 93.894 kg Microbiology Reports for the Last 24 Hours: Microbiology 06/26/24 23:28 Blood Blood Culture - Preliminary NO GROWTH AFTER 4 DAYS 06/26/24 23:18 Blood Blood Culture - Preliminary NO GROWTH AFTER 4 DAYS 06/28/24 04:01 Sputum - Expectorated Sputum Gram Stain - Final 06/28/24 04:01 Sputum - Expectorated Sputum Sputum Culture - Final The patient's infection will respond to the chosen ABx?: Yes Is the patient receiving the right drug, dose, and route?: Yes Could a more targeted ABx be ordered?: No
[2024-07-01] MEDS: propofoL 100 ML 23.28 MG IV ×2 (14:05→17:56)
--- NOTE | 2024-07-01 15:50 | PC.NURSE ---
Patient remained on ventilator, fio2 75, tv 440 peep 6 rr 20. Lung sounds diminished. Patient turned q2. Patient suctioned with yanker multiple times during shift, tolerated well. OG tube hooked to low wall suction, brown liquid draining. Enema given, no bowel movement produced. Bowel sounds active.
[2024-07-01 16:12] LABS: POC Glucose,Bedside 175 (70-110)
[2024-07-01 16:12] LABS: POC Glucose,Bedside 157 (70-110)
[2024-07-01 16:12] LABS: POC Glucose,Bedside 234 (70-110)
[2024-07-01 16:12] LABS: POC Glucose,Bedside 187 (70-110)
[2024-07-01 16:12] LABS: POC Glucose,Bedside 184 (70-110)
[2024-07-01] MEDS: SENNOSIDES 8.6MG/DOCUSATE 50MG TABLET 1 TAB PO (17:07)
--- NOTE | 2024-07-01 20:57 | EXP.ACUTE.PN ---
Subjective *Date: 07/01/24 *Time: 20:57 Interval history: intubated, currently on ventilator. Appears comfortable. Afebrile overnight. Minimal dark bloody discharge from OG tube. Medical Exam Vital signs and Labs for Last 24 Hours: Vital Signs Temp Pulse Resp BP Pulse Ox O2 Del Method FiO2 07/01/24 19:00 117/70 07/01/24 19:00 60 20 93 L 07/01/24 18:51 Mechanical Ventilation 07/01/24 18:45 65 07/01/24 18:30 21 90 07/01/24 18:30 66 07/01/24 18:00 61 20 94 L 07/01/24 18:00 103/63 L 07/01/24 17:30 61 20 94 L 07/01/24 17:00 102/63 L 07/01/24 17:00 60 20 93 L 07/01/24 17:00 Mechanical Ventilation 07/01/24 16:30 60 20 102/63 L 92 L 07/01/24 16:00 70 07/01/24 16:00 98.9 F 07/01/24 16:00 Mechanical Ventilation 07/01/24 16:00 91/52 L 07/01/24 16:00 59 L 20 90 L Mechanical Ventilation 07/01/24 15:00 95/51 L 07/01/24 15:00 67 20 92 L Mechanical Ventilation 07/01/24 15:00 Mechanical Ventilation 07/01/24 14:15 63 07/01/24 14:15 63 07/01/24 14:15 94 L Mechanical Ventilation 75 07/01/24 14:15 94 L 75 07/01/24 14:00 118/75 07/01/24 14:00 68 20 92 L Mechanical Ventilation 07/01/24 13:00 109/69 L 07/01/24 13:00 63 20 91 L Mechanical Ventilation 07/01/24 13:00 Mechanical Ventilation 07/01/24 13:00 63 20 109/69 L 90 L Mechanical Ventilation 07/01/24 12:01 93 H 16 94 L Mechanical Ventilation 07/01/24 12:01 135/96 H 07/01/24 12:00 70 07/01/24 12:00 Mechanical Ventilation 75 07/01/24 12:00 78 21 101/62 L 94 L Mechanical Ventilation 07/01/24 11:00 Room Air 07/01/24 11:00 101/62 L 07/01/24 11:00 65 20 91 L Mechanical Ventilation 07/01/24 10:03 67 07/01/24 10:03 69 07/01/24 10:03 93 L Mechanical Ventilation 75 07/01/24 10:03 20 93 L 75 07/01/24 10:00 93/60 L 93 L Mechanical Ventilation 07/01/24 10:00 70 20 93 L 07/01/24 09:30 70 18 94 L 07/01/24 09:00 Mechanical Ventilation 07/01/24 09:00 98.7 F 63 20 109/64 L 90 L 07/01/24 08:00 70 07/01/24 08:00 Mechanical Ventilation 75 07/01/24 08:00 98.7 F 07/01/24 08:00 112/66 93 L Mechanical Ventilation 07/01/24 08:00 67 20 94 L 07/01/24 07:00 58 L 20 106/59 L 92 L Mechanical Ventilation 07/01/24 07:00 Mechanical Ventilation 07/01/24 06:21 98.2 F 07/01/24 06:13 61 07/01/24 06:13 64 07/01/24 06:13 93 L Mechanical Ventilation 75 07/01/24 06:13 20 93 L 75 07/01/24 06:00 60 20 107/63 L 94 L Mechanical Ventilation 07/01/24 05:00 48 L 19 114/69 95 Mechanical Ventilation 07/01/24 05:00 Mechanical Ventilation 07/01/24 04:09 20 94 L 75 07/01/24 04:00 68 20 92/54 L 93 L Mechanical Ventilation 07/01/24 04:00 98.2 F 63 20 100/61 L 93 L Mechanical Ventilation 07/01/24 04:00 66 07/01/24 03:00 62 20 87/53 L 93 L Mechanical Ventilation 07/01/24 03:00 98.2 F 67 20 86/53 L 92 L Mechanical Ventilation 07/01/24 03:00 Mechanical Ventilation 07/01/24 02:00 20 90 07/01/24 02:00 67 20 104/63 L 92 L Mechanical Ventilation 07/01/24 01:54 20 93 L 90 07/01/24 01:39 72 07/01/24 01:39 67 07/01/24 01:15 99.2 F 69 20 111/58 L 91 L Mechanical Ventilation 07/01/24 00:48 Mechanical Ventilation 07/01/24 00:48 70 20 117/68 92 L Mechanical Ventilation 07/01/24 00:44 20 90 L 90 06/30/24 23:45 20 90 L Mechanical Ventilation 70 06/30/24 23:45 76 20 166/97 H 90 L Mechanical Ventilation 06/30/24 23:00 74 20 166/97 H 91 L Mechanical Ventilation 06/30/24 23:00 Mechanical Ventilation 06/30/24 23:00 75 20 166/97 H 90 L Nasal Cannula, Mechanical Ventilation 06/30/24 22:42 72 06/30/24 22:42 75 06/30/24 22:42 21 93 L 70 06/30/24 22:00 70 06/30/24 22:00 61 20 103/64 L 92 L Mechanical Ventilation 06/30/24 21:00 Mechanical Ventilation 06/30/24 21:00 99 F 64 20 107/63 L 93 L Mechanical Ventilation Intake and Output 07/01/24 07/01/24 07/01/24 07:59 15:59 23:59 Intake Total 232.01 / 1159.714 638.076 / 1159.714 289.628 / 1159.714 Output Total 940 / 2300 490 / 2300 870 / 2300 Balance -707.99 / -1140.286 148.076 / -1140.286 -580.372 / -1140.286 Intake: Intake, Total IV Amount 232.01 / 1159.714 638.076 / 1159.714 289.628 / 1159.714 Azithromycin 500 mg In 0.9 % 250 / 250 Sodium Chloride 250 ml @ 250 mls/hr IV Q24H [facility] Rx#:[id number] Cefepime HCl 2 gm In 0.9 % 100 / 300 100 / 300 100 / 300 Sodium Chloride 100 ml @ 200 mls/hr IV Q12H [facility] Rx#:[id number] Output: Output, Urine Amount 600 / 600 0 / 600 0 / 600 Output, Urine Amount (Catheter) 340 / 1050 490 / 1050 220 / 1050 Muhammad 340 / 1050 490 / 1050 220 / 1050 Output, Gastric Drainage Amount 650 / 650 Oral 650 / 650 Other: Number of Unmeasured Voids 0 0 0 Weight 93.894 kg Patient Weight 07/01/24 23:59 Weight 93.894 kg Laboratory Results - last 24 hr 06/30/24 16:28: POC Glucose 234 H 06/30/24 20:47: POC Glucose 184 H 06/30/24 23:24: Gastric Occult Blood Positive 07/01/24 05:20: WBC 11.3 H, RBC 4.88, Hgb 14.0 L, Hct 46.8, MCV 95.9 H, MCH 28.7, MCHC 29.9 L, RDW 15.9, Plt Count 151, MPV 9.9, Neut % (Auto) 86.3 H, Lymph % (Auto) 4.2 L, [place] % (Auto) 8.9, Eos % (Auto) 0.0 L, Baso % (Auto) 0.2, Neut # (Auto) 9.8 H, Lymph # (Auto) 0.5 L, [place] # (Auto) 1.0, Eos # (Auto) 0.0, Baso # (Auto) 0.0, PT 11.4, INR 1.02, APTT 25.3, Fibrinogen 414 H, Sodium 136, Potassium 4.6, Chloride 94 L, Carbon Dioxide 37 H, Anion Gap 6.6, BUN 42 H, Creatinine 0.70, Estimated Creat Clear 153, Estimated GFR 116, Est GFR ( Amer) 140, Glucose 206 H, Calcium 8.5, Phosphorus 3.8, Magnesium 2.0, Total Bilirubin 0.6, AST 22 D, ALT 17, Alkaline Phosphatase 65, Total Protein 5.7 L, Albumin 3.1 L, Globulin 2.6, Albumin/Globulin Ratio 1.2 07/01/24 06:15: POC Glucose 187 H 07/01/24 11:22: POC Glucose 157 H 07/01/24 16:05: POC Glucose 175 H I & O for Labs for Last 24 Hours: Intake & Output 06/28/24 06/29/24 06/30/24 07/01/24 23:59 23:59 23:59 23:59 Intake Total 1543.803 / 0103.352 5037.559 / 7691.258 0201.215 / 3902.215 1159.714 / 1159.714 Output Total 1310 / 1460 1465 / 1815 2890 / 2890 2300 / 2300 Balance 233.803 / 83.803 181.559 / -625.744 3197.215 / 1012.215 -1140.286 / -1140.286 Weight 94.982 kg 96.661 kg 96.661 kg 93.894 kg Microbiology Reports for the Last 24 Hours: Microbiology 06/26/24 23:28 Blood Blood Culture - Preliminary NO GROWTH AFTER 4 DAYS 06/26/24 23:18 Blood Blood Culture - Preliminary NO GROWTH AFTER 4 DAYS Constitutional: Present no acute distress, chronically ill appearing and somnolent Head: Present atraumatic and normocephalic ENT: Present normal exam Comment:: ET tube in place, OG in place with dark blood in tube Neck: Present normal inspection Respiratory: Present patient mechanically ventilated; Absent respiratory distress, rhonchi, wheezes or crackles (LLL) Cardiac: Present Reg Rate and Rhythm GI: Present soft and normal bowel sounds; Absent distention or tenderness Extremities: Present normal inspection; Absent edema Skin: Present intact; Absent erythema Neuro: Present moves all extremities (Spontaneous); Absent alert, awake or oriented x 3 Comment:: Opens eyes spontaneously. Spontaneous movement Assessment and Plan *Assessment and plan (1) Severe sepsis: Status: Acute Category: Medical Code(s): A41.9 - Sepsis, unspecified organism; R65.20 - Severe sepsis without septic shock (2) Acute respiratory failure with hypoxia: Status: Acute Category: Medical Code(s): J96.01 - Acute respiratory failure with hypoxia (3) Acute exacerbation of chronic obstructive pulmonary disease (COPD): Status: Acute Category: Medical Code(s): J44.1 - Chronic obstructive pulmonary disease with (acute) exacerbation (4) Community acquired pneumonia: Status: Acute Qualifiers: Laterality: unspecified laterality Qualified Code(s): J18.9 - Pneumonia, unspecified organism Category: Medical Code(s): J18.9 - Pneumonia, unspecified organism (5) Diabetes mellitus: Status: Acute Qualifiers: Diabetes mellitus type: type 2 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: without 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 use Diabetes mellitus complication status: without complication Qualified Code(s): E11.9 - Type 2 diabetes mellitus without complications Category: Medical Code(s): E11.9 - Type 2 diabetes mellitus without complications (6) Polycythemia vera: Status: Acute Category: Medical Code(s): D45 - Polycythemia vera (7) Pulmonary emphysema: Status: Acute Qualifiers: Emphysema type: centrilobular Qualified Code(s): J43.2 - Centrilobular emphysema Category: Medical Code(s): J43.9 - Emphysema, unspecified (8) RVF (right ventricular failure): Status: Acute Category: Medical Code(s): I50.810 - Right heart failure, unspecified (9) CAD (coronary artery disease): Status: Acute Qualifiers: Coronary Disease-Associated Artery/Lesion type: [place] artery [place] vs. transplanted heart: [place] heart Associated angina: without angina Qualified Code(s): I25.10 - Atherosclerotic heart disease of [place] coronary artery without angina pectoris Category: Medical Code(s): I25.10 - Atherosclerotic heart disease of [place] coronary artery without angina pectoris (10) Hypertension: Status: Acute Qualifiers: Hypertension type: unspecified Qualified Code(s): I10 - Essential (primary) hypertension Category: Medical Code(s): I10 - Essential (primary) hypertension (11) HLD (hyperlipidemia): Status: Acute Qualifiers: Hyperlipidemia type: mixed hyperlipidemia Qualified Code(s): E78.2 - Mixed hyperlipidemia Category: Medical Code(s): E78.5 - Hyperlipidemia, unspecified Plan Daniel Kwan is a 59-year-old male with a medical history significant for COPD on 2 L, severe sleep apnea, CAD with stent, hypertension, hyperlipidemia, type 2 diabetes who presents with worsening shortness of breath. He states he has not been taking his medications for many weeks and then he became increasingly short of breath over the past 2 weeks. Denies chest pain. Workup in the ED significant for a compensated ABG, D-dimer 0.85, BNP 1160. CTA chest revealed multifocal pneumonia in bilateral lungs with no evidence of PE. CXR suggests possible volume overload versus pneumonia. Initially on Vapotherm, eventually required intubation. Doing better on ventilator. Pulmonology assisting with management. Cardiology assisting with care. Continues to require ICU level care. Showing improvement in ventilator settings, weaning today. Has developed some GI blood loss and the NG tube. Monitoring closely. Problems addressed as follows: #Acute hypoxic respiratory failure # Severe sepsis #Multifocal community-acquired pneumonia # Acute COPD exacerbation ? Continue cefepime 2 g every 8 hours and azithromycin 500 mg daily - Continue steroids with methylprednisolone 40 mg IV twice daily ? Cultures remain negative with sputum and blood -White count 11.3, hemoglobin 14. Potassium 4.6, sodium 136, magnesium 2.0. Repeat CBC, CMP, magnesium ordered for the morning. -Tube feeds held overnight due to concern for residual with blood. -Continue mechanical ventilation. Weaning settings per pulmonology recommendations. PEEP of 6, FiO2 75%, rate 20, tidal volume 440. - Continue Xopenex ipratropium every 4 hours and Pulmicort twice daily. Continue cefepime and azithromycin IV. Continue methylprednisolone 40 mg twice daily IV. -Tylenol for fever, elevated temps of 99 today. No eduar fever however. - No bowel movement since admission. Continue docusate and senna scheduled twice daily. Administer enema today. -Continue analgo-sedation with fentanyl and propofol. -Continue pantoprazole 40 mg IV twice daily. Monitoring for significant bleeding. Hemoglobin stable. No signs of anemia. Discontinued aspirin and Plavix -Per my review of KUB today, has some constipation. Decent stool burden #Possible HFpEF exacerbation # CAD, hypertension, hyperlipidemia ? Hold Lasix today. - Coronary artery disease is likely stable. He ruled out for an MN. No plans for invasive left cardiac catheterization at this time. ? Continue home Farxiga 10 mg. -Due to GI bleed in tube, will discontinue aspirin and Plavix. #Type 2 diabetes ? ACHS glucose checks, increase to high intensity sliding scale. Glucose 241 on morning labs. ? Continue home Farxiga. ICU/Critical care attestation This patient is critically ill with 35 minutes devoted solely to this patient managing life/organ supporting interventions that required physician assessment. This includes time spent making adjustments in ventilator settings, IV fluid administration, titration of pressors, adjustments of medications, discussion of patient with consultants and other care providers as well as updating patient and/or family (if patient by virtue of his/her condition is unable to participate in decision making). This does not include time spent performing separately billed procedures. Time is not concurrent with that of other providers. Full code DVT prophylaxis: Holding Lovenox today due to bleeding and OG Tube feeds at goal
[2024-07-01] MEDS: ATORVASTATIN 40MG TABLET 40 MG PO (23:08)
[2024-07-01 23:11] LABS: POC Glucose,Bedside 139 (70-110)
[2024-07-02] VITALS (37 sets, daily range): BP systolic 110–146; BP diastolic 3–85; PULSE 51–83; RESP 14–23; TEMP 37–37.3; O2SAT 87–97; BMI 27.7
[2024-07-02] MEDS: MIDAZOLAM 2MG/2ML VIAL 1 MG IV ×2 (01:58→23:46)
[2024-07-02] MEDS: CEFEPIME HCL 2 GM in 0.9 % SODIUM CHLORIDE 100 ML IV ×3 (02:01→16:06)
[2024-07-02] MEDS: propofoL 100 ML 23.28 MG IV ×6 (02:05→23:15)
[2024-07-02] MEDS: LEVALBUTEROL 1.25MG/3ML NEB 1.25 MG IH ×5 (05:10→21:47)
[2024-07-02] MEDS: IPRATROPIUM BROMIDE 0.5 MG/2.5ML SOLUTION IH ×5 (05:10→21:47)
[2024-07-02] MEDS: BUDESONIDE 0.5MG/2ML NEB 0.5 MG IH ×2 (05:11→18:45)
[2024-07-02] MEDS: FENTANYL CITRATE/PF 1,000 MCG in 0.9 % SODIUM CHLORIDE 80 ML 10 MCG IV ×2 (05:33→14:27)
--- NOTE | 2024-07-02 06:00 | XR_ITS ---
PROCEDURE INFORMATION: Exam: XR Chest Exam date and time: 07/02/2024 2:59 AM Age: 59 years old Clinical indication: Other: Pneumonia mechanical ventilation TECHNIQUE: Imaging protocol: Radiologic exam of the chest. Views: 1 view. COMPARISON: CR XR CHEST PORTABLE 06/30/2024 11:34 PM FINDINGS: Tubes, catheters and devices: ET tube and NG tube in good position. Lungs: Retrocardiac and right basilar airspace disease, atelectasis versus early infiltrate. Overall not significantly changed from prior. Pleural spaces: Unremarkable. No pleural effusion. No pneumothorax. Heart/Mediastinum: Unremarkable. No cardiomegaly. Bones/joints: Unremarkable. IMPRESSION: ET tube and NG tube in good position. Retrocardiac and right basilar airspace disease, atelectasis versus early infiltrate. Overall not significantly changed from prior.
[2024-07-02] MEDS: humaLOG 100 UNITS/ML 10ML VIAL (SSI) SUBCUT ×3 (06:04→21:22)
[2024-07-02 06:08] LABS: POC Glucose,Bedside 224 (70-110)
[2024-07-02 06:21] LABS: Basophils % 0.2 % (0.1-2.0); Hematocrit 46.4 % (42.0-52.0); Hemoglobin 13.9 g/dL (14.1-18.0); Lymphocytes # 0.6 K/mm3 (0.7-4.5); Lymphocytes % 5.1 % (10-50); Mean Corpuscular Hemoglobin 29.1 pg (27.0-31.2); Mean Corpuscular Volume 97.3 fl (80-94); Mean Platelet Volume 10.6 fl (7.4-10.4); Monocytes # 0.6 K/mm3 (0.1-1.0); Monocytes % 5.5 % (1.7-9.3); Neutrophils # 9.8 K/mm3 (1.8-7.8); Neutrophils % 88.8 % (37.0-80.0); Platelet Count 171 K/mm3 (142-424); Red Blood Count 4.77 M/mm3 (4.60-6.20); Red Cell Distribution Width 16.2 % (11.5-17.5)
[2024-07-02 06:31] LABS: Alanine Aminotransferase 18 U/L (12-78); Albumin Level 3.1 g/dl (3.5-5.0); Albumin/Globulin Ratio 1.1 (1.1-1.8); Alkaline Phosphatase 64 U/L (38-126); Aspartate Amino Transferase 27 U/L (17-59); Bilirubin,Total 0.8 mg/dl (0.2-1.3); Blood Urea Nitrogen 36 mg/dl (9-20); Calcium 8.5 mg/dl (8.4-10.2); Chloride 96 mmol/L (98-107); Creatinine Clearance Estimated 176 mL/min (50-200); Estimated Glomerular Filt Rate 138 ml/min (>60); GFR (African American) 167 ML/MIN (>60); Globulin 2.7 g/dL (1.3-3.2); Glucose 217 mg/dl (74-100); Magnesium 1.8 mg/dl (1.6-2.3); Phosphorous 4.7 mg/dl (2.5-4.5); Potassium 4.6 mmoL/L (3.5-5.1); Sodium 140 mmol/L (136-145); Total Protein,Serum 5.8 g/dl (6.3-8.2)
[2024-07-02 06:37] LABS: Anion Gap 10.6 mEq/L (5-15); Carbon Dioxide 38 mmol/L (22.0-30.0)
[2024-07-02] MEDS: AZITHROMYCIN 500 MG in 0.9 % SODIUM CHLORIDE 250 ML 250 MG IV (08:37)
[2024-07-02] MEDS: METHYLPREDNISOLONE SOD SUCC 40MG VIAL 40 MG IV ×2 (09:09→21:18)
[2024-07-02] MEDS: PANTOPRAZOLE 40MG VIAL 40 MG IV ×2 (09:10→21:18)
[2024-07-02] MEDS: SENNOSIDES 8.6MG/DOCUSATE 50MG TABLET 1 TAB PO ×2 (09:10→21:19)
[2024-07-02] MEDS: SODIUM CHLORIDE 0.9% 10ML VIAL 10 ML IV (09:10)
[2024-07-02] MEDS: BISACODYL 10MG SUPP 10 MG RC (09:11)
[2024-07-02] MEDS: MAGNESIUM SULFATE IN WATER 2 GM/50 ML PIGGYBACK IV (09:44)
--- NOTE | 2024-07-02 11:58 | PC.NURSE ---
Tube feeding restarted, no residual noted prior to starting. Rate started at 20 ml/hr.
--- NOTE | 2024-07-02 13:56 | P.PN_ITS ---
Subjective *Date: 07/02/24 *Time: 13:56 Interval history: intubated, currently on ventilator. Appears comfortable. Afebrile overnight. Had an episode of desaturation overnight necessitating increasing PEEP after being bathed. No bloody discharge and OG today. Medical Exam Vital signs and Labs for Last 24 Hours: Vital Signs Temp Pulse Resp BP Pulse Ox O2 Del Method FiO2 07/02/24 13:41 94 L 70 07/02/24 13:30 20 94 L 75 07/02/24 13:20 52 L 07/02/24 13:20 52 L 07/02/24 13:00 Mechanical Ventilation 07/02/24 13:00 56 L 20 95 Mechanical Ventilation 07/02/24 13:00 127/75 07/02/24 12:00 59 L 07/02/24 12:00 122/73 07/02/24 12:00 59 L 20 93 L Mechanical Ventilation 07/02/24 12:00 Mechanical Ventilation 07/02/24 11:30 90 07/02/24 11:00 Mechanical Ventilation 07/02/24 11:00 110/61 07/02/24 11:00 67 14 93 L Mechanical Ventilation 07/02/24 10:20 20 93 L 90 07/02/24 10:20 53 L 07/02/24 10:20 54 L 07/02/24 10:00 71 20 114/60 94 L Mechanical Ventilation 07/02/24 10:00 114/60 07/02/24 10:00 73 19 94 L 07/02/24 09:00 Mechanical Ventilation 07/02/24 09:00 124/68 07/02/24 09:00 72 19 94 L Mechanical Ventilation 07/02/24 09:00 75 20 124/68 93 L Mechanical Ventilation 07/02/24 08:00 65 07/02/24 08:00 98.6 F 07/02/24 08:00 120/69 07/02/24 08:00 66 20 94 L Mechanical Ventilation 07/02/24 07:37 Mechanical Ventilation 07/02/24 07:00 67 20 128/64 93 L Mechanical Ventilation 07/02/24 06:05 20 91 L 100 07/02/24 06:00 57 L 20 121/64 94 L Mechanical Ventilation 07/02/24 05:11 58 L 07/02/24 05:11 58 L 07/02/24 05:11 93 L Mechanical Ventilation 100 07/02/24 05:00 56 L 20 119/67 93 L Mechanical Ventilation 07/02/24 05:00 Mechanical Ventilation 07/02/24 04:06 20 100 07/02/24 04:00 98.9 F 55 L 20 124/73 93 L Mechanical Ventilation 07/02/24 04:00 Mechanical Ventilation 07/02/24 04:00 54 L 07/02/24 03:00 62 20 129/70 90 L Mechanical Ventilation 07/02/24 03:00 Mechanical Ventilation 07/02/24 02:00 69 20 122/65 87 L Mechanical Ventilation 07/02/24 01:00 56 L 20 131/81 93 L Mechanical Ventilation 07/02/24 00:00 60 07/02/24 00:00 99.0 F 58 L 20 114/69 94 L Mechanical Ventilation 07/02/24 00:00 Mechanical Ventilation 07/01/24 23:47 20 75 07/01/24 23:00 58 L 20 106/64 L 94 L Mechanical Ventilation 07/01/24 23:00 Mechanical Ventilation 07/01/24 22:01 59 L 20 149/89 H 96 Mechanical Ventilation 07/01/24 21:57 66 07/01/24 21:56 63 07/01/24 21:55 20 75 07/01/24 21:00 57 L 20 115/67 97 Mechanical Ventilation 07/01/24 21:00 Mechanical Ventilation 07/01/24 20:00 66 07/01/24 20:00 99.0 F 64 20 117/67 93 L Mechanical Ventilation 07/01/24 19:00 117/70 07/01/24 19:00 60 20 93 L 07/01/24 18:51 Mechanical Ventilation 07/01/24 18:45 65 07/01/24 18:30 21 75 07/01/24 18:30 66 07/01/24 18:00 61 20 94 L 07/01/24 18:00 103/63 L 07/01/24 17:30 61 20 94 L 07/01/24 17:00 102/63 L 07/01/24 17:00 60 20 93 L 07/01/24 17:00 Mechanical Ventilation 07/01/24 16:30 60 20 102/63 L 92 L 07/01/24 16:00 70 07/01/24 16:00 98.9 F 07/01/24 16:00 Mechanical Ventilation 07/01/24 16:00 91/52 L 07/01/24 16:00 59 L 20 90 L Mechanical Ventilation 07/01/24 15:00 95/51 L 07/01/24 15:00 67 20 92 L Mechanical Ventilation 07/01/24 15:00 Mechanical Ventilation 07/01/24 14:15 63 07/01/24 14:15 63 07/01/24 14:15 94 L Mechanical Ventilation 75 07/01/24 14:15 94 L 75 07/01/24 14:00 118/75 07/01/24 14:00 68 20 92 L Mechanical Ventilation Intake and Output 07/01/24 07/02/24 07/02/24 23:59 07:59 15:59 Intake Total 372.660 / 1278.079 290.833 / 778.133 487.3 / 778.133 Output Total 1195 / 2685 420 / 870 450 / 870 Balance -822.340 / -1406.921 -129.167 / -91.867 37.3 / -91.867 Intake: Intake, Total IV Amount 372.660 / 1278.079 290.833 / 778.133 487.3 / 778.133 Azithromycin 500 mg In 0.9 % 250 / 250 Sodium Chloride 250 ml @ 250 mls/hr IV Q24H [facility] Rx#:[id number] Cefepime HCl 2 gm In 0.9 % 100 / 300 100 / 200 100 / 200 Sodium Chloride 100 ml @ 200 mls/hr IV Q12H [facility] Rx#:[id number] Magnesium Sulfate in Water 2 gm 50 / 50 In 50 ml @ 50 mls/hr IV ONCE ONE Rx#:[id number] Output: Output, Urine Amount 0 / 600 0 / 0 Output, Urine Amount (Catheter) 545 / 1435 420 / 870 450 / 870 Muhammad 545 / 1435 420 / 870 450 / 870 Output, Gastric Drainage Amount 650 / 650 Oral 650 / 650 Other: Number of Unmeasured Voids 0 0 Weight 92.85 kg Patient Weight 07/02/24 23:59 Weight 92.85 kg Laboratory Results - last 24 hr 06/30/24 16:28: POC Glucose 234 H 06/30/24 20:47: POC Glucose 184 H 07/01/24 06:15: POC Glucose 187 H 07/01/24 11:22: POC Glucose 157 H 07/01/24 16:05: POC Glucose 175 H 07/01/24 23:03: POC Glucose 139 H 07/02/24 06:01: POC Glucose 224 H 07/02/24 06:07: WBC 11.0 H, RBC 4.77, Hgb 13.9 L, Hct 46.4, MCV 97.3 H, MCH 29.1, MCHC 30.0 L, RDW 16.2, Plt Count 171, MPV 10.6 H, Neut % (Auto) 88.8 H, Lymph % (Auto) 5.1 L, [place] % (Auto) 5.5, Eos % (Auto) 0.0 L, Baso % (Auto) 0.2, Neut # (Auto) 9.8 H, Lymph # (Auto) 0.6 L, [place] # (Auto) 0.6, Eos # (Auto) 0.0, Baso # (Auto) 0.0, Sodium 140, Potassium 4.6, Chloride 96 L, Carbon Dioxide 38 H , Anion Gap 10.6, BUN 36 H, Creatinine 0.60 L, Estimated Creat Clear 176, Estimated GFR 138, Est GFR ( Amer) 167, Glucose 217 H, Calcium 8.5, Phosphorus 4.7 H, Magnesium 1.8, Total Bilirubin 0.8, AST 27, ALT 18, Alkaline Phosphatase 64, Total Protein 5.8 L, Albumin 3.1 L, Globulin 2.7, Albumin/Globulin Ratio 1.1 I & O for Labs for Last 24 Hours: Intake & Output 06/29/24 06/30/24 07/01/24 07/02/24 23:59 23:59 23:59 23:59 Intake Total 1646.559 / 4741.546 0558.215 / 3902.215 1242.746 / 1278.079 778.133 / 778.133 Output Total 1465 / 1815 2890 / 2890 2625 / 2685 870 / 870 Balance 181.559 / -503.892 3576.215 / 1012.215 -1382.254 / -1406.921 -91.867 / - 91.867 Weight 96.661 kg 96.661 kg 93.894 kg 92.85 kg Microbiology Reports for the Last 24 Hours: Microbiology 06/26/24 23:18 Blood Blood Culture - Final NO GROWTH AFTER 5 DAYS 06/26/24 23:28 Blood Blood Culture - Final NO GROWTH AFTER 5 DAYS Constitutional: Present no acute distress, chronically ill appearing and somnolent Head: Present atraumatic and normocephalic ENT: Present normal exam Comment:: ET tube in place, OG in place with no blood in tube Neck: Present normal inspection Respiratory: Present patient mechanically ventilated; Absent respiratory distress, rhonchi, wheezes or crackles (LLL) Cardiac: Present Reg Rate and Rhythm GI: Present soft and normal bowel sounds; Absent distention or tenderness Extremities: Present normal inspection; Absent edema Skin: Present intact; Absent erythema Neuro: Present moves all extremities (Spontaneous); Absent alert, awake or oriented x 3 Comment:: Opens eyes spontaneously. Spontaneous movement Assessment and Plan *Assessment and plan (1) Severe sepsis: Status: Acute Category: Medical Code(s): A41.9 - Sepsis, unspecified organism; R65.20 - Severe sepsis without septic shock (2) Acute respiratory failure with hypoxia: Status: Acute Category: Medical Code(s): J96.01 - Acute respiratory failure with hypoxia (3) Acute exacerbation of chronic obstructive pulmonary disease (COPD): Status: Acute Category: Medical Code(s): J44.1 - Chronic obstructive pulmonary disease with (acute) exacerbation (4) Community acquired pneumonia: Status: Acute Qualifiers: Laterality: unspecified laterality Qualified Code(s): J18.9 - Pneumonia, unspecified organism Category: Medical Code(s): J18.9 - Pneumonia, unspecified organism (5) Diabetes mellitus: Status: Acute Qualifiers: Diabetes mellitus type: type 2 Diabetes mellitus senior living insulin use: without ad terminal makeup operator use Diabetes mellitus complication status: without complication Qualified Code(s): E11.9 - Type 2 diabetes mellitus without complications Category: Medical Code(s): E11.9 - Type 2 diabetes mellitus without complications (6) Polycythemia vera: Status: Acute Category: Medical Code(s): D45 - Polycythemia vera (7) Pulmonary emphysema: Status: Acute Qualifiers: Emphysema type: centrilobular Qualified Code(s): J43.2 - Centrilobular emphysema Category: Medical Code(s): J43.9 - Emphysema, unspecified (8) RVF (right ventricular failure): Status: Acute Category: Medical Code(s): I50.810 - Right heart failure, unspecified (9) CAD (coronary artery disease): Status: Acute Qualifiers: Coronary Disease-Associated Artery/Lesion type: [place] artery [place] vs. transplanted heart: [place] heart Associated angina: without angina Qualified Code(s): I25.10 - Atherosclerotic heart disease of [place] coronary artery without angina pectoris Category: Medical Code(s): I25.10 - Atherosclerotic heart disease of [place] coronary artery without angina pectoris (10) Hypertension: Status: Acute Qualifiers: Hypertension type: unspecified Qualified Code(s): I10 - Essential (primary) hypertension Category: Medical Code(s): I10 - Essential (primary) hypertension (11) HLD (hyperlipidemia): Status: Acute Qualifiers: Hyperlipidemia type: mixed hyperlipidemia Qualified Code(s): E78.2 - Mixed hyperlipidemia Category: Medical Code(s): E78.5 - Hyperlipidemia, unspecified Plan Daniel Kwan is a 59-year-old male with a medical history significant for COPD on 2 L, severe sleep apnea, CAD with stent, hypertension, hyperlipidemia, type 2 diabetes who presents with worsening shortness of breath. He states he has not been taking his medications for many weeks and then he became increasingly short of breath over the past 2 weeks. Denies chest pain. Workup in the ED significant for a compensated ABG, D-dimer 0.85, BNP 1160. CTA chest revealed multifocal pneumonia in bilateral lungs with no evidence of PE. CXR suggests possible volume overload versus pneumonia. Initially on Vapotherm, eventually required intubation. Doing better on ventilator. Pulmonology assisting with management. Cardiology assisting with care. Continues to require ICU level care. Difficulty weaning vent. Tolerating PEEP of 10, rate of 20, volume 440, FiO2 75%. Problems addressed as follows: #Acute hypoxic respiratory failure # Severe sepsis #Multifocal community-acquired pneumonia # Acute COPD exacerbation ? Continue cefepime 2 g every 8 hours and azithromycin 500 mg daily - Continue steroids with methylprednisolone 40 mg IV twice daily -White count stable at 11, hemoglobin stable at 14, platelets 171. Repeat CBC, CMP, magnesium ordered for the morning. - Continue mechanical ventilation. Weaning settings per pulmonology recommendations. PEEP to 8 today if possible. FiO2 75%, rate 20, tidal volume 440. - Continue Xopenex ipratropium every 4 hours and Pulmicort twice daily. Continue cefepime and azithromycin IV. Continue methylprednisolone 40 mg twice daily IV. -Tylenol for fever, No eduar fever however. - No bowel movement since admission. Continue docusate and senna scheduled twice daily. Bisacodyl suppository once today -Continue analgo-sedation with fentanyl and propofol. -Continue pantoprazole 40 mg IV twice daily. Monitoring for significant bleeding. Hemoglobin stable. No signs of anemia. #Possible HFpEF exacerbation # CAD, hypertension, hyperlipidemia ? Hold Lasix today. - Coronary artery disease is likely stable. He ruled out for an [place]. No plans for invasive left cardiac catheterization at this time. ? Continue home Farxiga 10 mg. Holding aspirin and Plavix due to blood in G- tube. Patient over a year out from his last cath #Type 2 diabetes ? ACHS glucose checks, high intensity sliding scale. Glucose 217 on morning labs. Initiate glargine nightly at 15 units ? Continue home Farxiga. - Resume tube feeds today ICU/Critical care attestation This patient is critically ill with 30 minutes devoted solely to this patient managing life/organ supporting interventions that required physician assessment. This includes time spent making adjustments in ventilator settings, IV fluid administration, titration of pressors, adjustments of medications, discussion of patient with consultants and other care providers as well as updating patient and/or family (if patient by virtue of his/her condition is unable to participate in decision making). This does not include time spent performing separately billed procedures. Time is not concurrent with that of other providers. Full code DVT prophylaxis: Holding Lovenox today due to bleeding and OG Resume tube feeds
[2024-07-02 16:25] LABS: POC Glucose,Bedside 192 (70-110)
--- NOTE | 2024-07-02 16:34 | PC.NURSE ---
Patient remained on ventilator during shift fio2 100 tv 440 peep 9 rr 20 ET tube 21 at teeth, og tube 60 at lip. Tube feedings resumed, tolerating well, no residual. Feed rate increased to 30, goal rate 65. No bowel movement during shift despite suppository. MD aware, new orders placed. Bowel sounds hypoactive, lung sounds diminished. Turned q2. Secretions frequently suctioned with yanker.
--- NOTE | 2024-07-02 16:52 | PC.NURSE ---
cpot 0 at 1600
[2024-07-02] MEDS: POLYETHYLENE GLYCOL 3350 17 GM PACKET PO ×2 (17:10→23:30)
[2024-07-02] MEDS: INSULIN GLARGINE 100 UNITS/ML 3ML FLEXPEN 15 UNIT SUBCUT (21:18)
[2024-07-02] MEDS: ATORVASTATIN 40MG TABLET 40 MG PO (21:18)
[2024-07-02 21:20] LABS: POC Glucose,Bedside 153 (70-110)
[2024-07-03] VITALS (60 sets, daily range): BP systolic 99–169; BP diastolic 49–102; PULSE 53–98; RESP 12–26; TEMP 36.6–37.1; O2SAT 50–97; BMI 28.3
[2024-07-03 00:03] LABS: ABG Base Excess 5.8 mmol/L (-2.4-2.3); ABG HCO3 32.1 mmhg (22.0-26.0); ABG Oxygen Saturation 90 % (90-100); ABG PH 7.31 mmol/L (7.35-7.45); ABG PO2 63.3 mmhg (80-100); ABG TCO2 34.1 mmhg (23-27)
[2024-07-03 00:05] LABS: ABG PCO2 65.4 mmhg (35.0-45.0); Allen's Test Patient Unable; Oxygen 100 %; PEEP 10; Source Right Radial; Tidal Volume 440; Vent Rate 20
[2024-07-03] MEDS: CEFEPIME HCL 2 GM in 0.9 % SODIUM CHLORIDE 100 ML IV ×3 (00:08→18:45)
[2024-07-03] MEDS: FENTANYL CITRATE/PF 1,000 MCG in 0.9 % SODIUM CHLORIDE 80 ML 10 MCG IV ×2 (00:28→09:29)
[2024-07-03] MEDS: guaiFENesin 200MG/10ML SYRUP UDC 200 MG PO ×3 (01:29→20:29)
[2024-07-03] MEDS: propofoL 100 ML 23.28 MG IV ×3 (02:10→09:51)
[2024-07-03] MEDS: IPRATROPIUM BROMIDE 0.5 MG/2.5ML SOLUTION IH ×5 (02:13→19:15)
[2024-07-03] MEDS: LEVALBUTEROL 1.25MG/3ML NEB 1.25 MG IH ×5 (02:13→19:15)
--- NOTE | 2024-07-03 04:21 | PC.NURSE ---
Patient residual checked approx 0400. Patient with 140ml residual in stomach. Patient currently receiving 30ml/hr of Glucerna TF. Provider made aware of residual volume and that only 100ml replaced into stomach at this time. No new orders. Continuing feed at 30ml/hr. Patient repositioned to left side and placed at a 30 degree semi fowlers position. Patient tolerated repositioning well.
[2024-07-03] MEDS: humaLOG 100 UNITS/ML 10ML VIAL (SSI) SUBCUT ×2 (05:57→18:50)
[2024-07-03] MEDS: BUDESONIDE 0.5MG/2ML NEB 0.5 MG IH ×2 (05:57→17:30)
--- NOTE | 2024-07-03 06:00 | XR_ITS ---
PROCEDURE INFORMATION: Exam: XR Chest Exam date and time: 07/03/2024 5:18 AM Age: 59 years old Clinical indication: Condition or disease; Other: Pneumonia mechanical ventilation TECHNIQUE: Imaging protocol: Radiologic exam of the chest. Views: 1 view. COMPARISON: CR XR CHEST PORTABLE 07/02/2024 2:59 AM FINDINGS: Tubes, catheters and devices: NG tube in good position. ET tube not well visualized and may have been removed. Lungs: Basilar airspace disease unchanged from prior. Pleural spaces: Unremarkable. No pleural effusion. No pneumothorax. Heart/Mediastinum: Unremarkable. No cardiomegaly. Bones/joints: Unremarkable. IMPRESSION: NG tube in good position. ET tube not well visualized and may have been removed. Basilar airspace disease unchanged from prior.
[2024-07-03 06:01] LABS: POC Glucose,Bedside 180 (70-110)
[2024-07-03] MEDS: POLYETHYLENE GLYCOL 3350 17 GM PACKET PO ×3 (06:27→22:03)
[2024-07-03 06:44] LABS: Alanine Aminotransferase 21 U/L (12-78); Albumin Level 3.1 g/dl (3.5-5.0); Albumin/Globulin Ratio 1.1 (1.1-1.8); Alkaline Phosphatase 67 U/L (38-126); Anion Gap 8.9 mEq/L (5-15); Aspartate Amino Transferase 34 U/L (17-59); Bilirubin,Total 0.7 mg/dl (0.2-1.3); Blood Urea Nitrogen 33 mg/dl (9-20); Calcium 8.5 mg/dl (8.4-10.2); Carbon Dioxide 38 mmol/L (22.0-30.0); Chloride 96 mmol/L (98-107); Creatinine Clearance Estimated 154 mL/min (50-200); Estimated Glomerular Filt Rate 116 ml/min (>60); GFR (African American) 140 ML/MIN (>60); Globulin 2.7 g/dL (1.3-3.2); Glucose 199 mg/dl (74-100); Potassium 4.9 mmoL/L (3.5-5.1); Sodium 138 mmol/L (136-145); Total Protein,Serum 5.8 g/dl (6.3-8.2)
--- NOTE | 2024-07-03 07:50 | PC.WOUNDNOTE ---
pressure relief dressing removed for picture, new applied following picture skin assessment of coccyx
[2024-07-03] MEDS: SENNOSIDES 8.6MG/DOCUSATE 50MG TABLET 1 TAB PO (09:30)
[2024-07-03] MEDS: METHYLPREDNISOLONE SOD SUCC 40MG VIAL 40 MG IV ×2 (09:30→20:29)
[2024-07-03] MEDS: BISACODYL 10MG SUPP 10 MG RC (09:30)
[2024-07-03] MEDS: SODIUM CHLORIDE 0.9% 10ML VIAL 10 ML IV (09:30)
[2024-07-03] MEDS: PANTOPRAZOLE 40MG VIAL 40 MG IV ×2 (09:30→20:47)
[2024-07-03] MEDS: ENOXAPARIN 40MG/0.4ML SYRINGE 40 MG SUBCUT (09:31)
--- NOTE | 2024-07-03 10:02 | P.PN_ITS ---
Subjective *Date: 07/03/24 *Time: 11:52 Interval history: WorseningNo acute respiratory events over the weekend. Pulmonology Exam Inpatient Vital signs and Labs for Last 24 Hours: Temp Pulse Resp BP Pulse Ox O2 Del Method O2 Flow Rate 97.9 F 58 L 21 116/71 93 L Mechanical Ventilation 90 07/03/24 04:00 07/03/24 09:53 07/03/24 09:53 07/03/24 08:00 07/03/24 09:53 07/03/24 08:00 07/03/24 08:00 FiO2 100 07/03/24 09:53 Laboratory Results - last 24 hr 07/02/24 16:11: POC Glucose 192 H 07/02/24 21:14: POC Glucose 153 H 07/03/24 00:01: Specimen Source Right radial, O2 % 100, ABG pH 7.31 L, ABG pCO2 65.4 H, ABG pO2 63.3 L, ABG HCO3 32.1 H, ABG Total CO2 34.1 H, ABG O2 Saturation 90, ABG Base Excess 5.8 H, Ben Test Patient unable, Vent Rate 20, Tidal Volume 440, PEEP 10 07/03/24 05:32: Sodium 138, Potassium 4.9, Chloride 96 L, Carbon Dioxide 38 H, Anion Gap 8.9, BUN 33 H, Creatinine 0.70, Estimated Creat Clear 154, Estimated GFR 116, Est GFR ( Amer) 140, Glucose 199 H, Calcium 8.5, Total Bilirubin 0.7, AST 34 D, ALT 21, Alkaline Phosphatase 67, Total Protein 5.8 L, Albumin 3.1 L, Globulin 2.7, Albumin/Globulin Ratio 1.1 07/03/24 05:54: POC Glucose 180 H I & O for Labs for Last 24 Hours: Intake & Output 06/30/24 07/01/24 07/02/24 07/03/24 23:59 23:59 23:59 23:59 Intake Total 3902.215 / 3902.215 1242.746 / 2608.675 8445.925 / 0206.918 5425.702 / 1282.702 Output Total 2890 / 2890 2625 / 2685 1680 / 1805 725 / 725 Balance 1012.215 / 1012.215 -1382.254 / -1406.921 -29.075 / 191.925 557.702 / 557.702 Weight 213 lb 1.616 oz 207 lb 204 lb 11.2 oz 208 lb 14.4 oz Constitutional: Present severe distress Comment:: Intubated and Sedated Head: Present normocephalic and atraumatic Neck: Present normal inspection and trachea midline Respiratory: Present patient mechanically ventilated, prolonged expiratory phase and rhonchi Cardiac: Present S1/S2 and Tachycardia GI: Present soft; Absent distention or tenderness Skin: Present intact; Absent cyanosis Neuro: Absent alert, awake or oriented x 3 Comment:: Intubated and sedated Extremities: Present normal inspection; Absent clubbing or cyanosis Psychiatric: Present unable to assess Assessment and Plan *Assessment and plan (1) Acute exacerbation of chronic obstructive pulmonary disease (COPD): Status: Acute Category: Medical Code(s): J44.1 - Chronic obstructive pulmonary disease with (acute) exacerbation (2) Acute respiratory failure with hypoxia: Status: Acute Category: Medical Code(s): J96.01 - Acute respiratory failure with hypoxia (3) Community acquired pneumonia: Status: Acute Qualifiers: Laterality: unspecified laterality Qualified Code(s): J18.9 - Pneumonia, unspecified organism Category: Medical Code(s): J18.9 - Pneumonia, unspecified organism Plan Mr. Carmona is a 59-year-old male greater than [id number] smoking history, COPD, sleep apnea previously refused CPAP therapy presented to the ER with worsening respiratory distress and pulmonary was called for further evaluation and management. CTA upon admission suboptimal timing, no obvious central pulmonary embolism but right lower lobe airspace disease and consolidative changes noted. AFebrile. Hemodynamically stable. Currently receicing cefepime azithromycin and steroids and nebulization t herapies. On initial examination severe respiratory distress. Oxygen desaturation noted with high flow nasal cannula 40 L 100%, escalated to BiPAP therapy with saturations maintained at 89% and above. Mini respiratory viral PCR panel negative lower extremity venous Doppler negative for DVT. Echo continued to show RV dilation and reduced RV function since 2022 likely secondary to uncontrolled sleep apnea and severe COPD. No Doppler evidence of interatrial shunt Nasal MRSA PCR negative. Sputum prelim gram-positive diplococci. Interval update: No acute respiratory vents overnight. Stable ventilator settings. Chest x-ray from this morning concerning right lower lobe collapse. No other new infiltrate/findings noted. Stable Left effusion Afebrile. Hemodynamically stable. ABG from this morning hypercarbic respiratory failure with a pH of 7.31 and pCO2 65.4. Cardiology has signed off at this point of time. Lasix 40 mg IV once Plan: Continue propofol and fentanyl for sedation Continue mechanical ventilatory support, currently on PEEP of 8 FiO2 of 80% rate of 20 and tidal volume of 440. ABG from this morning hypercarbic respiratory failure, end-tidal CO2 improving. Will follow-up Wean sedation and will attempt SBT. Continue Xopenex and ipratropium every 6 hours along with Pulmicort every 12 scheduled Continue cefepime x 7 5 days Continue methylprednisolone 40 mg twice daily IV Hemodynamically stable. MAP greater than 70. Continue tube feeds. - Continue mechanical ventilatory support - Continue AnalgoSedation with Propofol and Fentanyl with CPOT gal less than or euqal to 2 and RASS goal of to 2 (No need for deep sedation) - VAP bundle Recommend elevate head of the bed at 30 to 45 degrees Recommend oral care with chlorhexidne Recommend GI ulcer prophylaxis - Famotidine 20mg IV BID Recommend chemical DVT prophylaxis Total critical care time spent on this patient is 35 minutes managing acute hypoxic respiratory failure needing mechanical ventilation. This time spent include reviewing test results including interpreting chest x-rays, labs and optimizing the ventilator settings,formulating plan of care, discussing the plan of care with the team and the nursing staff.
--- NOTE | 2024-07-03 12:18 | DIET.NUTRFU ---
Patient experienced some bleeding from feeding tube and feeding ut on hold for 07/01. Now running at 30ml/hr and plan to increase to reach goal of 65ml/hr. Reviewed patient in rounds this morning with IDT, provider aware of no BM concern. He has added multiple meds in to assist with them. Will continue to monitor. Labs reviewed BS: 192-217. Propofol provided 153kcal on 07/02 and 207kcal on 07/03. Will continue to monitor and adjust TF order as needed.
--- NOTE | 2024-07-03 12:34 | PC.NURSE ---
called rt to let them know pt was ready to attempt sbt. pt co2 was 64 at time of call to rt 1915
[2024-07-03] MEDS: FUROSEMIDE 40MG/4ML VIAL 40 MG IV (12:38)
[2024-07-03 13:55] LABS: ABG Base Excess 13.4 mmol/L (-2.4-2.3); ABG HCO3 38.5 mmhg (22.0-26.0); ABG Oxygen Saturation 85 % (90-100); ABG PO2 51.1 mmhg (80-100); ABG TCO2 40.6 mmhg (23-27); Lactate Arterial 1.1 mmol/L (0.4-2.0)
--- NOTE | 2024-07-03 14:32 | EXP.ACUTE.PN ---
Subjective *Date: 07/03/24 *Time: 21:19 Interval history: An episode overnight of desaturation. Necessitated increase in PEEP. Failed SBT this morning. Continues to require intubation. Family at bedside Medical Exam Vital signs and Labs for Last 24 Hours: Vital Signs Temp Pulse Pulse Resp BP Pulse Ox O2 Del Method 07/03/24 13:08 18 163/101 H 07/03/24 13:01 63 23 169/100 H 84 L Mechanical Ventilation 07/03/24 12:59 22 87 L 07/03/24 12:40 69 86 L Mechanical Ventilation 07/03/24 12:00 60 07/03/24 12:00 98.2 F 60 21 109/63 L 87 L Mechanical Ventilation 07/03/24 11:00 Mechanical Ventilation 07/03/24 11:00 58 L 20 89 L 07/03/24 11:00 58 L 20 110/62 89 L Mechanical Ventilation 07/03/24 10:00 53 L 20 108/64 L 93 L Mechanical Ventilation 07/03/24 09:53 58 L 07/03/24 09:53 53 L 07/03/24 09:53 21 93 L 07/03/24 09:30 Mechanical Ventilation 07/03/24 09:00 65 17 112/64 90 L Mechanical Ventilation 07/03/24 08:00 92 L Mechanical Ventilation 07/03/24 08:00 60 07/03/24 08:00 07/03/24 08:00 59 L 20 116/71 97 Mechanical Ventilation 07/03/24 07:45 56 L 92 L Mechanical Ventilation 07/03/24 07:00 57 L 17 118/72 96 Mechanical Ventilation 07/03/24 06:00 54 L 20 115/70 95 Mechanical Ventilation 07/03/24 05:57 54 L 07/03/24 05:57 53 L 07/03/24 05:57 21 93 L 07/03/24 05:00 56 L 20 109/63 L 93 L Mechanical Ventilation 07/03/24 04:14 20 07/03/24 04:00 97.9 F 58 L 19 117/76 94 L 07/03/24 04:00 60 07/03/24 03:00 61 17 126/76 94 L Mechanical Ventilation 07/03/24 02:14 20 07/03/24 02:14 61 07/03/24 02:13 60 07/03/24 02:00 63 21 117/72 92 L Mechanical Ventilation 07/03/24 01:00 71 15 123/76 89 L Mechanical Ventilation 07/03/24 00:12 24 90 L 07/03/24 00:12 90 L Mechanical Ventilation 07/03/24 00:00 84 07/03/24 00:00 132/75 07/03/24 00:00 98.8 F 85 20 132/75 89 L Mechanical Ventilation 07/02/24 23:30 83 19 94 L 07/02/24 23:00 67 23 124/69 93 L Mechanical Ventilation 07/02/24 22:00 20 96 07/02/24 22:00 68 20 128/69 95 Mechanical Ventilation 07/02/24 22:00 67 20 95 07/02/24 21:47 63 07/02/24 21:47 62 07/02/24 21:47 96 Mechanical Ventilation 07/02/24 21:30 62 20 97 07/02/24 21:01 20 07/02/24 21:00 Mechanical Ventilation 07/02/24 21:00 62 20 126/76 96 Mechanical Ventilation 07/02/24 20:00 99.2 F 51 L 20 112/3 L 95 Mechanical Ventilation 07/02/24 20:00 54 L 07/02/24 19:00 55 L 07/02/24 19:00 123/69 07/02/24 19:00 58 L 20 95 Mechanical Ventilation 07/02/24 18:45 57 L 07/02/24 18:30 Mechanical Ventilation 07/02/24 18:00 20 07/02/24 18:00 127/78 07/02/24 18:00 57 L 20 97 Mechanical Ventilation 07/02/24 17:00 141/84 H 07/02/24 17:00 58 L 20 97 Mechanical Ventilation 07/02/24 17:00 Mechanical Ventilation 07/02/24 16:00 59 L 20 132/77 97 Mechanical Ventilation 07/02/24 16:00 62 07/02/24 16:00 Mechanical Ventilation 07/02/24 15:00 Mechanical Ventilation 07/02/24 15:00 62 20 134/71 96 Mechanical Ventilation O2 Flow Rate FiO2 07/03/24 13:08 07/03/24 13:01 07/03/24 12:59 65 07/03/24 12:40 60 07/03/24 12:00 07/03/24 12:00 07/03/24 11:00 07/03/24 11:00 07/03/24 11:00 70 07/03/24 10:00 07/03/24 09:53 07/03/24 09:53 07/03/24 09:53 100 07/03/24 09:30 07/03/24 09:00 07/03/24 08:00 100 07/03/24 08:00 07/03/24 08:00 90 100 07/03/24 08:00 07/03/24 07:45 100 07/03/24 07:00 07/03/24 06:00 07/03/24 05:57 07/03/24 05:57 07/03/24 05:57 07/03/24 05:00 07/03/24 04:14 100 07/03/24 04:00 07/03/24 04:00 07/03/24 03:00 07/03/24 02:14 100 07/03/24 02:14 07/03/24 02:13 07/03/24 02:00 07/03/24 01:00 07/03/24 00:12 07/03/24 00:12 07/03/24 00:00 07/03/24 00:00 07/03/24 00:00 07/02/24 23:30 07/02/24 23:00 07/02/24 22:00 100 07/02/24 22:00 07/02/24 22:00 07/02/24 21:47 07/02/24 21:47 07/02/24 21:47 07/02/24 21:30 07/02/24 21:01 100 07/02/24 21:00 07/02/24 21:00 07/02/24 20:00 07/02/24 20:00 07/02/24 19:00 07/02/24 19:00 07/02/24 19:00 07/02/24 18:45 07/02/24 18:30 07/02/24 18:00 100 07/02/24 18:00 07/02/24 18:00 07/02/24 17:00 07/02/24 17:00 07/02/24 17:00 07/02/24 16:00 07/02/24 16:00 07/02/24 16:00 07/02/24 15:00 07/02/24 15:00 Intake and Output 07/02/24 07/03/24 07/03/24 23:59 07:59 15:59 Intake Total 691.836 / 0382.118 2165.355 / 1617.421 614.066 / 1617.421 Output Total 635 / 1805 500 / 785 285 / 785 Balance 56.836 / 191.925 503.355 / 832.421 329.066 / 832.421 Intake: Intake, Tube Feeding Amount 276 / 322 187 / 404 217 / 404 Intake, Tube Irrigant Amount 120 / 120 250 / 250 Intake, Other Amount 200 / 200 Intake, Total IV Amount 295.836 / 1354.925 366.355 / 763.421 397.066 / 763.421 Cefepime HCl 2 gm In 0.9 % 100 / 400 100 / 200 100 / 200 Sodium Chloride 100 ml @ 200 mls/hr IV Q12H [facility] Rx#:[id number] Output: Output, Urine Amount 0 / 0 225 / 225 Output, Urine Amount (Catheter) 635 / 1805 500 / 560 60 / 560 Muhammad 635 / 1805 500 / 560 60 / 560 Other: Number of Unmeasured Voids 0 160 Weight 94.755 kg Patient Weight 07/03/24 23:59 Weight 94.755 kg Laboratory Results - last 24 hr 07/02/24 16:11: POC Glucose 192 H 07/02/24 21:14: POC Glucose 153 H 07/03/24 00:01: Specimen Source Right radial, O2 % 100, ABG pH 7.31 L, ABG pCO2 65.4 H, ABG pO2 63.3 L, ABG HCO3 32.1 H, ABG Total CO2 34.1 H, ABG O2 Saturation 90, ABG Base Excess 5.8 H, Ben Test Patient unable, Vent Rate 20, Tidal Volume 440, PEEP 10 07/03/24 05:32: Sodium 138, Potassium 4.9, Chloride 96 L, Carbon Dioxide 38 H, Anion Gap 8.9, BUN 33 H, Creatinine 0.70, Estimated Creat Clear 154, Estimated GFR 116, Est GFR ( Amer) 140, Glucose 199 H, Calcium 8.5, Total Bilirubin 0.7, AST 34 D, ALT 21, Alkaline Phosphatase 67, Total Protein 5.8 L, Albumin 3.1 L, Globulin 2.7, Albumin/Globulin Ratio 1.1 07/03/24 05:54: POC Glucose 180 H I & O for Labs for Last 24 Hours: Intake & Output 06/30/24 07/01/24 07/02/24 07/03/24 23:59 23:59 23:59 23:59 Intake Total 3902.215 / 3902.215 1242.746 / 0716.805 4444.925 / 2750.079 4225.421 / 1617.421 Output Total 2890 / 2890 2625 / 2685 1680 / 1805 785 / 785 Balance 1012.215 / 1012.215 -1382.254 / -1406.921 -29.075 / 191.925 832.421 / 832.421 Weight 96.661 kg 93.894 kg 92.85 kg 94.755 kg Constitutional: Present no acute distress, chronically ill appearing and somnolent Head: Present atraumatic and normocephalic ENT: Present normal exam Comment:: ET tube in place, OG in place with no blood in tube Neck: Present normal inspection Respiratory: Present patient mechanically ventilated; Absent respiratory distress, rhonchi, wheezes or crackles (LLL) Cardiac: Present Reg Rate and Rhythm GI: Present soft and normal bowel sounds; Absent distention or tenderness Extremities: Present normal inspection; Absent edema Skin: Present intact; Absent erythema Neuro: Present moves all extremities (Spontaneous); Absent alert, awake or oriented x 3 Comment:: Sedated, minimal spontaneous movement Assessment and Plan *Assessment and plan (1) Severe sepsis: Status: Acute Category: Medical Code(s): A41.9 - Sepsis, unspecified organism; R65.20 - Severe sepsis without septic shock (2) Acute respiratory failure with hypoxia: Status: Acute Category: Medical Code(s): J96.01 - Acute respiratory failure with hypoxia (3) Acute exacerbation of chronic obstructive pulmonary disease (COPD): Status: Acute Category: Medical Code(s): J44.1 - Chronic obstructive pulmonary disease with (acute) exacerbation (4) Community acquired pneumonia: Status: Acute Qualifiers: Laterality: unspecified laterality Qualified Code(s): J18.9 - Pneumonia, unspecified organism Category: Medical Code(s): J18.9 - Pneumonia, unspecified organism (5) Diabetes mellitus: Status: Acute Qualifiers: Diabetes mellitus complication status: without complication Diabetes mellitus intermediate insulin use: without long term acute care registered nurse use Diabetes mellitus type: type 2 Qualified Code(s): E11.9 - Type 2 diabetes mellitus without complications Category: Medical Code(s): E11.9 - Type 2 diabetes mellitus without complications (6) Polycythemia vera: Status: Acute Category: Medical Code(s): D45 - Polycythemia vera (7) Pulmonary emphysema: Status: Acute Qualifiers: Emphysema type: centrilobular Qualified Code(s): J43.2 - Centrilobular emphysema Category: Medical Code(s): J43.9 - Emphysema, unspecified (8) RVF (right ventricular failure): Status: Acute Category: Medical Code(s): I50.810 - Right heart failure, unspecified (9) CAD (coronary artery disease): Status: Acute Qualifiers: Associated angina: without angina Coronary Disease-Associated Artery/Lesion type: [place] artery [place] vs. transplanted heart: solomon heart Qualified Code(s): I25.10 - Atherosclerotic heart disease of solomon coronary artery without angina pectoris Category: Medical Code(s): I25.10 - Atherosclerotic heart disease of solomon coronary artery without angina pectoris (10) Hypertension: Status: Acute Qualifiers: Hypertension type: unspecified Qualified Code(s): I10 - Essential (primary) hypertension Category: Medical Code(s): I10 - Essential (primary) hypertension (11) HLD (hyperlipidemia): Status: Acute Qualifiers: Hyperlipidemia type: mixed hyperlipidemia Qualified Code(s): E78.2 - Mixed hyperlipidemia Category: Medical Code(s): E78.5 - Hyperlipidemia, unspecified Plan Daniel Kwan is a 59-year-old male with a medical history significant for COPD on 2 L, severe sleep apnea, CAD with stent, hypertension, hyperlipidemia, type 2 diabetes who presents with worsening shortness of breath. He states he has not been taking his medications for many weeks and then he became increasingly short of breath over the past 2 weeks. Denies chest pain. Workup in the ED significant for a compensated ABG, D-dimer 0.85, BNP 1160. CTA chest revealed multifocal pneumonia in bilateral lungs with no evidence of PE. CXR suggests possible volume overload versus pneumonia. Initially on Vapotherm, eventually required intubation. Patient continues to have a difficult time weaning. Pulmonology recommended SBT today, patient did not tolerate SBT for more than a few seconds due to desaturation. Continues to require ICU care. Tolerating ventilator with PEEP 8, FiO2 70%, rate 20, volume 440. Still is not had bowel movement. Reinitiating tube feeds. Problems addressed as follows: #Acute hypoxic respiratory failure # Severe sepsis #Multifocal community-acquired pneumonia # Acute COPD exacerbation ? Continue cefepime 2 g every 8 hours and azithromycin 500 mg daily for 7 days. Today is day 5 - Continue steroids with methylprednisolone 40 mg IV twice daily - Repeat CBC, CMP, magnesium, CRP, procalcitonin ordered for the morning. - Continue mechanical ventilation. Weaning settings per pulmonology recommendations. SBT trial this morning, failed. - Continue Xopenex ipratropium every 4 hours and Pulmicort twice daily. -Tylenol for fever, No eduar fever however. - No bowel movement since admission. Continue docusate and senna scheduled twice daily. MiraLAX per tube every 6 hours for 48 hours. Will administer enema later today if no bowel movement -Continue analgo-sedation with fentanyl and propofol. -Continue pantoprazole 40 mg IV twice daily. Monitoring for significant bleeding. Hemoglobin stable. No signs of anemia. #Possible HFpEF exacerbation # CAD, hypertension, hyperlipidemia ? Administer Lasix once today. - Coronary artery disease is likely stable. He ruled out for an [place]. No plans for invasive left cardiac catheterization at this time. ? Holding Farxiga as it cannot be crushed per tube. Holding aspirin and Plavix due to blood in G-tube. Patient over 1yr out from his last cath #Type 2 diabetes ? ACHS glucose checks, high intensity sliding scale. Glucose 199 on morning labs. Continue insulin glargine, increase to 25 units nightly ? Continue home Farxiga. - Resume tube feeds today -BUN 33, creatinine 0.7. Potassium 4.9 Constipation: Has not pooped in 5 days. KUB was obtained over weekend showing constipation. No free air. Abdomen soft. Active bowel sounds. Continue MiraLAX every 6 hours. Getting daily enemas. Tube feeds running. ICU/Critical care attestation This patient is critically ill with 30 minutes devoted solely to this patient managing life/organ supporting interventions that required physician assessment. This includes time spent making adjustments in ventilator settings, IV fluid administration, titration of pressors, adjustments of medications, discussion of patient with consultants and other care providers as well as updating patient and/or family (if patient by virtue of his/her condition is unable to participate in decision making). This does not include time spent performing separately billed procedures. Time is not concurrent with that of other providers. Full code DVT prophylaxis: Resume Lovenox 40 mg subcu daily Resume tube feeds
[2024-07-03] MEDS: propofoL 100 ML 11.64 MG IV ×2 (14:51→20:42)
[2024-07-03 16:44] LABS: ABG PCO2 66.5 mmhg (35.0-45.0)
--- NOTE | 2024-07-03 17:31 | XR_ITS ---
PROCEDURE INFORMATION: Exam: XR Chest Exam date and time: 07/03/2024 5:36 PM Age: 59 years old Clinical indication: Other: Decreased o2 sats TECHNIQUE: Imaging protocol: Radiologic exam of the chest. Views: 1 view. COMPARISON: CR XR CHEST PORTABLE 07/03/2024 5:18 AM FINDINGS: Tubes, catheters and devices: ETT of proximal 8 cm above the nano. NG tube extends into the body of the stomach. Lungs: Bibasilar lung opacities [id number]-[id number]-left similar to previous. Lungs are otherwise clear. Pleural spaces: Unremarkable. No pleural effusion. No pneumothorax. Heart/Mediastinum: Unremarkable. No cardiomegaly. Bones/joints: Unremarkable. IMPRESSION: 1. Tube position as above. 2. Stable bibasilar lung opacities may reflect atelectasis and/or infiltrates and possible effusions
[2024-07-03] MEDS: MIDAZOLAM 2MG/2ML VIAL 4 MG IV (17:33)
[2024-07-03] MEDS: ROCURONIUM BROMIDE 50MG/5ML VIAL 30 MG IV (17:45)
--- NOTE | 2024-07-03 18:25 | XR_ITS ---
PROCEDURE INFORMATION: Exam: XR Chest Exam date and time: 07/03/2024 6:24 PM Age: 59 years old Clinical indication: Device placement; Ett placement (vent status); Additional info: Ett replaced TECHNIQUE: Imaging protocol: Radiologic exam of the chest. Views: 1 view. COMPARISON: CR XR CHEST PORTABLE 07/03/2024 5:36 PM FINDINGS: Tubes, catheters and devices: ETT 7.7 cm above the nano. NG tube extends into the body of the stomach. Lungs: Stable bibasilar lung opacities [id number]-left. Lungs are otherwise clear. Pleural spaces: Unremarkable. No pleural effusion. No pneumothorax. Heart/Mediastinum: Unremarkable. No cardiomegaly. Bones/joints: Unremarkable. IMPRESSION: 1. Tube position as above. 2. Otherwise stable chest with bibasilar lung opacities again noted.
[2024-07-03] MEDS: ETOMIDATE 40MG/20ML VIAL 30 MG IV (18:30)
[2024-07-03] MEDS: SUCCINYLCHOLINE 20MG/ML 10 ML MDV 100 MG IV (18:30)
--- NOTE | 2024-07-03 18:30 | XR_ITS ---
PROCEDURE INFORMATION: Exam: XR Chest Exam date and time: 07/03/2024 6:30 PM Age: 59 years old Clinical indication: Device placement; Ett placement (vent status); Additional info: Reposition ett TECHNIQUE: Imaging protocol: Radiologic exam of the chest. Views: 1 view. COMPARISON: CR XR CHEST PORTABLE 07/03/2024 6:30 PM FINDINGS: Tubes, catheters and devices: ETT approximately 8.3 cm above the chronic. NG tube extends into the body of the stomach. Lungs: Bibasilar lung opacities similar to previous. Pleural spaces: Unremarkable. No pleural effusion. No pneumothorax. Heart/Mediastinum: Unremarkable. No cardiomegaly. Bones/joints: Unremarkable. IMPRESSION: ETT 8.3 cm above the nano. Consider advancing ETT 3 cm for more optimal position .
--- NOTE | 2024-07-03 18:52 | EXP.EVENT.NO ---
I responded to a call from nurses at ICU who advised that patient's ET tube cuff was leaking and patient was desaturating. They advised Dr. Shaw wanted me to exchange the ET tube. Patient was in acute distress upon arrival with O2 saturation in the 50s, actively being bagged. There was rupture of the cuff of ET tube. Procedure: I administered 30 mg of etomidate and 100 mg of succinylcholine, as the patient was actively fighting being bagged and gagging on tube. I also advised nursing increase propofol and fentanyl for sedation that the patient was already on. Once patient was paralyzed and sedated better, I exchanged the ET tube for another 7-1/2 cuffed ET tube over a bougie. Cuff was inflated, bougie extracted, and placement in airway confirmed with MAC 3 video assisted laryngoscope, auscultation, ETCO2. Tube was 26 at the lip. Post-intubation chest XR obtained afterward independently interpreted by myself prior to radiology read. This showed ET tube was slightly deep. given this, retracted 2 cm. No immediate complications from procedure, 1 attempt made. I independently interpreted the chest x-ray to note significant atelectatic changes to the right lower lung, worsened from this morning's x-ray. I called and had an interactive discussion with Dr. Shaw who recommended suctioning for possible mucous plug, continued bagging, placing the patient on his left side. RT assisted with this. I asked if there is anything else I can do, advised nothing for now. As I left, patient still being bagged.
[2024-07-03 19:52] LABS: ABG Base Excess 12.8 mmol/L (-2.4-2.3); ABG HCO3 36.7 mmhg (22.0-26.0); ABG Oxygen Saturation 80 % (90-100); ABG PH 7.46 mmol/L (7.35-7.45); ABG TCO2 38.3 mmhg (23-27)
[2024-07-03 19:53] LABS: Allen's Test Patient Unable; Oxygen 100 %; PEEP 8; Source Right Radial
[2024-07-03 19:54] LABS: ABG PCO2 52.9 mmhg (35.0-45.0); ABG PO2 39.8 mmhg (80-100)
--- NOTE | 2024-07-03 19:54 | PC.NURSE ---
at approx 1710 pt was noted to be coughing against the vent with
--- NOTE | 2024-07-03 19:54 | PC.NURSE ---
at approx 1715 pt was noted to be coughing against the vent and produced copious amounts of sputum. pt oral airway was suctioned. pt sats noted to be in the low 90's with endtitle co2 in the 70's 1725 RT was called. upon arrival to Rt to pt room sats were in the upper 90's. pt coughing against the vent still, sats dropping and pt not tolerating well. RT at bedside r/t pt sats hovering in the 70's RT called and spoke with Dr shaw. RT manually bagging pt with peep valve in use, [address] Shaw for 4mg of versed iv x 1. keyona ordered stat chest xray and for dr cabrera to interpret. 1735 Dr cabrera called to interpret. v/o received for 30 roccuronium x 1. medical coding auditor per dr cabrera. 1745 leaky cuff noted on ett. air added to cuff repeatedly. DR shaw notified. 1800 called and spoke with pt gf and advised of the need for ett to be changed out. pt gf states that she will be on her way. 1815 repeated attempted to improve pt sats. dr shaw states since ett has leak have er md come and exchange tube with bougie. 1825 DR Bowles at bedside orders given for 30 etomidate and 100 succ. medical coding auditor by . ett changed out for new 7.5 ett. continue to attempt to bag pt until sats improved.
[2024-07-03 19:59] LABS: ABG Base Excess 8.2 mmol/L (-2.4-2.3); ABG HCO3 33.6 mmhg (22.0-26.0); ABG Oxygen Saturation 93 % (90-100); ABG PH 7.36 mmol/L (7.35-7.45); ABG PO2 65.6 mmhg (80-100); ABG TCO2 35.5 mmhg (23-27); Allen's Test Patient Unable; Oxygen 100 %; PEEP 10; Source Right Radial; Tidal Volume 440; Vent Rate 22
[2024-07-03 20:00] LABS: ABG PCO2 60.7 mmhg (35.0-45.0)
[2024-07-03] MEDS: ATORVASTATIN 40MG TABLET 40 MG PO (20:29)
[2024-07-03] MEDS: INSULIN GLARGINE 100 UNITS/ML 3ML FLEXPEN 25 UNIT SUBCUT (20:31)
[2024-07-03] MEDS: FENTANYL CITRATE/PF 1,000 MCG in 0.9 % SODIUM CHLORIDE 80 ML 7.5 MCG IV (20:43)
[2024-07-04] VITALS (74 sets, daily range): BP systolic 77–143; BP diastolic 45–85; PULSE 59–93; RESP 12–45; TEMP 37.1–37.8; O2SAT 78–99; BMI 27.8
[2024-07-04] MEDS: IPRATROPIUM BROMIDE 0.5 MG/2.5ML SOLUTION IH ×4 (00:04→23:20)
[2024-07-04] MEDS: LEVALBUTEROL 1.25MG/3ML NEB 1.25 MG IH ×4 (00:04→23:20)
[2024-07-04] MEDS: propofoL 100 ML 23.28 MG IV ×3 (00:30→07:54)
[2024-07-04] MEDS: CEFEPIME HCL 2 GM in 0.9 % SODIUM CHLORIDE 100 ML IV ×3 (00:46→16:50)
[2024-07-04] MEDS: POLYETHYLENE GLYCOL 3350 17 GM PACKET PO (06:04)
[2024-07-04 06:16] LABS: Basophils % 0.1 % (0.1-2.0); Hematocrit 48.2 % (42.0-52.0); Hemoglobin 14.6 g/dL (14.1-18.0); Lymphocytes # 0.9 K/mm3 (0.7-4.5); Lymphocytes % 5.9 % (10-50); Mean Corpuscular HGB Conc 30.3 g/dL (31.8-35.4); Mean Corpuscular Hemoglobin 28.9 pg (27.0-31.2); Mean Corpuscular Volume 95.4 fl (80-94); Monocytes # 1.2 K/mm3 (0.1-1.0); Monocytes % 7.7 % (1.7-9.3); Neutrophils % 85.9 % (37.0-80.0); Platelet Count 212 K/mm3 (142-424); Red Blood Count 5.05 M/mm3 (4.60-6.20); Red Cell Distribution Width 15.7 % (11.5-17.5); White Blood Count 15.1 K/mm3 (4.8-10.8)
[2024-07-04 06:17] LABS: MANUAL DIFFERENTIAL MANUAL DIFFERENTIAL (MANUAL DIFF)
[2024-07-04 06:30] LABS: Alanine Aminotransferase 23 U/L (12-78); Albumin Level 3.3 g/dl (3.5-5.0); Albumin/Globulin Ratio 1.1 (1.1-1.8); Alkaline Phosphatase 71 U/L (38-126); Aspartate Amino Transferase 36 U/L (17-59); Bilirubin,Total 0.9 mg/dl (0.2-1.3); Blood Urea Nitrogen 37 mg/dl (9-20); Calcium 8.7 mg/dl (8.4-10.2); Chloride 92 mmol/L (98-107); Creatinine Clearance Estimated 151 mL/min (50-200); Estimated Glomerular Filt Rate 116 ml/min (>60); GFR (African American) 140 ML/MIN (>60); Globulin 2.9 g/dL (1.3-3.2); Glucose 165 mg/dl (74-100); Magnesium 1.9 mg/dl (1.6-2.3); Phosphorous 4.3 mg/dl (2.5-4.5); Potassium 4.9 mmoL/L (3.5-5.1); Sodium 136 mmol/L (136-145); Total Protein,Serum 6.2 g/dl (6.3-8.2)
[2024-07-04] MEDS: BUDESONIDE 0.5MG/2ML NEB 0.5 MG IH ×2 (06:30→18:20)
[2024-07-04 06:35] LABS: C-Reactive Protein 13.6 mg/L (0-4)
[2024-07-04 06:39] LABS: Anion Gap 8.9 mEq/L (5-15); Carbon Dioxide 40 mmol/L (22.0-30.0)
[2024-07-04] MEDS: FENTANYL CITRATE/PF 1,000 MCG in 0.9 % SODIUM CHLORIDE 80 ML 10 MCG IV ×2 (06:40→10:43)
[2024-07-04 06:46] LABS: Procalcitonin 0.124 ng/mL (0.0-2.0)
[2024-07-04 07:45] LABS: Lymphocytes % 5 % (10-50); Monocytes % 1 % (2-9); Neutrophils % 94 % (42-76); RBC Morphology Normal; Total Cells Counted 100
[2024-07-04 07:46] LABS: Platelet Estimate Normal
--- NOTE | 2024-07-04 08:00 | XR_ITS ---
FINAL REPORT CLINICAL HISTORY: hypoxia COMPARISON: 07/03/2024 FINDINGS: There is improving right base atelectasis when compared to the prior exam of 07/03/2024. There is however worsening left lower lobe densities, likely increasing atelectasis and pleural fluid. Mediastinum is unremarkable. An endotracheal tube and NG tube remain present. Heart size is normal. IMPRESSION: Improved right basilar atelectasis. Worsening left lower lobe densities, likely increasing atelectasis and probable pleural effusion. Reviewed, Interpreted and Dictated by Alicia Amezcua MD Transcribed by Janie Bhagat Authenticated and [facility]
[2024-07-04] MEDS: ENOXAPARIN 40MG/0.4ML SYRINGE 40 MG SUBCUT (08:40)
[2024-07-04] MEDS: METHYLPREDNISOLONE SOD SUCC 40MG VIAL 40 MG IV ×2 (08:40→20:03)
[2024-07-04] MEDS: BISACODYL 10MG SUPP 10 MG RC (08:41)
[2024-07-04] MEDS: guaiFENesin 200MG/10ML SYRUP UDC 200 MG PO ×2 (08:41→20:04)
[2024-07-04] MEDS: SENNOSIDES 8.6MG/DOCUSATE 50MG TABLET 1 TAB PO (08:41)
[2024-07-04] MEDS: PANTOPRAZOLE 40MG VIAL 40 MG IV ×2 (08:41→20:04)
[2024-07-04 09:05] LABS: Basophils % 0.1 % (0.1-2.0); Eosinophils % 0.3 % (0.1-12.0); Hematocrit 47.8 % (42.0-52.0); Hemoglobin 14.4 g/dL (14.1-18.0); Lymphocytes # 1.7 K/mm3 (0.7-4.5); Mean Corpuscular HGB Conc 30.1 g/dL (31.8-35.4); Mean Corpuscular Hemoglobin 28.5 pg (27.0-31.2); Mean Corpuscular Volume 94.5 fl (80-94); Mean Platelet Volume 11.2 fl (7.4-10.4); Monocytes # 1.2 K/mm3 (0.1-1.0); Monocytes % 8.9 % (1.7-9.3); Neutrophils # 10.7 K/mm3 (1.8-7.8); Neutrophils % 78.3 % (37.0-80.0); Platelet Count 205 K/mm3 (142-424); Red Blood Count 5.06 M/mm3 (4.60-6.20); Red Cell Distribution Width 15.7 % (11.5-17.5); White Blood Count 13.7 K/mm3 (4.8-10.8)
--- NOTE | 2024-07-04 09:38 | P.PN_ITS ---
Subjective *Date: 07/04/24 *Time: 12:02 Interval history: Worsening respiratory distress overnight. Pulmonology Exam Inpatient Vital signs and Labs for Last 24 Hours: Temp Pulse Resp BP Pulse Ox O2 Del Method O2 Flow Rate 98.9 F 69 22 108/66 L 99 Mechanical Ventilation 70 07/04/24 07:37 07/04/24 09:00 07/04/24 09:00 07/04/24 09:01 07/04/24 09:00 07/04/24 09:00 07/03/24 11:00 FiO2 100 07/04/24 07:37 Laboratory Results - last 24 hr 07/03/24 13:51: ABG pH , ABG pCO2 66.5 H, ABG pO2 51.1 L, ABG HCO3 38.5 H, ABG Total CO2 40.6 H, ABG O2 Saturation 85 L*, ABG Base Excess 13.4 H, ABG Lactate 1.1 07/03/24 18:00: Specimen Source Right radial, O2 % 100, ABG pH 7.46 H, ABG pCO2 52.9 H, ABG pO2 39.8 L, ABG HCO3 36.7 H, ABG Total CO2 38.3 H, ABG O2 Saturation 80 L*, ABG Base Excess 12.8 H, Ben Test Patient unable, PEEP 8 07/03/24 19:45: Specimen Source Right radial, O2 % 100, ABG pH 7.36, ABG pCO2 60.7 H, ABG pO2 65.6 L, ABG HCO3 33.6 H, ABG Total CO2 35.5 H, ABG O2 Saturation 93, ABG Base Excess 8.2 H, Ben Test Patient unable, Vent Rate 22, Tidal Volume 440, PEEP 10 07/04/24 05:21: WBC 15.1 H D, RBC 5.05, Hgb 14.6, Hct 48.2, MCV 95.4 H, MCH 28.9, MCHC 30.3 L, RDW 15.7, Plt Count 212, MPV 11.0 H, Neut % (Auto) 85.9 H, Lymph % (Auto) 5.9 L, Fallon % (Auto) 7.7, Eos % (Auto) 0.0 L, Baso % (Auto) 0.1, Neut # (Auto) 13.0 H, Lymph # (Auto) 0.9, Fallon # (Auto) 1.2 H, Eos # (Auto) 0.0, Baso # (Auto) 0.0, Total Counted 100, Neutrophils % (Manual) 94 H, Lymphocytes % (Manual) 5 L, Monocytes % (Manual) 1 L, Platelet Estimate Normal, RBC Morphology Normal, Sodium 136, Potassium 4.9, Chloride 92 L, Carbon Dioxide 40 H, Anion Gap 8.9, BUN 37 H, Creatinine 0.70, Estimated Creat Clear 151, Estimated GFR 116, Est GFR ( Amer) 140, Glucose 165 H, Calcium 8.7, Phosphorus 4.3, Magnesium 1.9, Total Bilirubin 0.9, AST 36, ALT 23, Alkaline Phosphatase 71, C- Reactive Protein 13.6 H, Total Protein 6.2 L, Albumin 3.3 L, Globulin 2.9, Albumin/Globulin Ratio 1.1, Procalcitonin 0.124 07/04/24 08:47: WBC 13.7 H, RBC 5.06, Hgb 14.4, Hct 47.8, MCV 94.5 H, MCH 28.5, MCHC 30.1 L, RDW 15.7, Plt Count 205, MPV 11.2 H, Neut % (Auto) 78.3, Lymph % (Auto) 12.0, Fallon % (Auto) 8.9, Eos % (Auto) 0.3, Baso % (Auto) 0.1, Neut # (Auto) 10.7 H, Lymph # (Auto) 1.7, Fallon # (Auto) 1.2 H, Eos # (Auto) 0.0, Baso # (Auto) 0.0 I & O for Labs for Last 24 Hours: Intake & Output 07/01/24 07/02/24 07/03/24 07/04/24 23:59 23:59 23:59 23:59 Intake Total 1242.746 / 1689.671 3874.925 / 0582.735 9261.194 / 1809.194 369.628 / 369.628 Output Total 2625 / 2685 1680 / 1805 1929 / 2054 670 / 670 Balance -1382.254 / -1406.921 -29.075 / 191.925 -120.806 / -245.806 -300.372 / - 300.372 Weight 207 lb 204 lb 11.2 oz 208 lb 14.4 oz 205 lb 1.6 oz Constitutional: Present severe distress Comment:: Intubated and Sedated Head: Present normocephalic and atraumatic Neck: Present normal inspection and trachea midline Respiratory: Present patient mechanically ventilated, prolonged expiratory phase and rhonchi Cardiac: Present S1/S2 and Tachycardia GI: Present soft; Absent distention or tenderness Skin: Present intact; Absent cyanosis Neuro: Absent alert, awake or oriented x 3 Comment:: Intubated and sedated Extremities: Present normal inspection; Absent clubbing or cyanosis Psychiatric: Present unable to assess Assessment and Plan *Assessment and plan (1) Acute exacerbation of chronic obstructive pulmonary disease (COPD): Status: Acute Category: Medical Code(s): J44.1 - Chronic obstructive pulmonary disease with (acute) exacerbation (2) Acute respiratory failure with hypoxia: Status: Acute Category: Medical Code(s): J96.01 - Acute respiratory failure with hypoxia (3) Community acquired pneumonia: Status: Acute Qualifiers: Laterality: unspecified laterality Qualified Code(s): J18.9 - Pneumonia, unspecified organism Category: Medical Code(s): J18.9 - Pneumonia, unspecified organism Plan Mr. Carmona is a 59-year-old male greater than [id number] smoking history, COPD, sleep apnea previously refused CPAP therapy presented to the ER with worsening respiratory distress and pulmonary was called for further evaluation and management. CTA upon admission suboptimal timing, no obvious central pulmonary embolism but right lower lobe airspace disease and consolidative changes noted. AFebrile. Hemodynamically stable. Currently receicing cefepime azithromycin and steroids and nebulization therapies. On initial examination severe respiratory distress. Oxygen desaturation noted with high flow nasal cannula 40 L 100%, escalated to BiPAP therapy with saturations maintained at 89% and above. Mini respiratory viral PCR panel negative lower extremity venous Doppler negative for DVT. Echo continued to show RV dilation and reduced RV function since 2022 likely secondary to uncontrolled sleep apnea and severe COPD. No Doppler evidence of interatrial shunt Nasal MRSA PCR negative. Sputum prelim gram-positive diplococci. Interval update: Significant respiratory events overnight. Patient noted no acute desaturation event. Cuff leak noted on ETT exchanged Patient also noted to have worsening right lower lobe and middle lobe collapse. Suctioning performed. Improving aeration on his chest x-ray from this morning. Currently on PEEP of 10 FiO2 100%. Saturating 96% and above. Breath sounds clear. Chest x-ray from this morning no new infiltrates, improving aeration right lower lung henry. Relatively stable left lower lobe atelectasis and effusion. ET tube in place. Plan: Continue propofol and fentanyl for sedation Continue mechanical ventilatory support, PEEP of 10 FiO2 of 100%, tidal volume of 440 and a rate of 22. Patient still with on his left with good saturations. Chest x-ray improved aeration from this morning. Will consider bronchoscopy pending clinical improvement. CT-PE Protocol Continue Xopenex and ipratropium every 6 hours along with Pulmicort every 12 scheduled Continue cefepime x 7 days Continue methylprednisolone 40 mg twice daily IV Hemodynamically stable. MAP greater than 70. Continue tube feeds. - Continue mechanical ventilatory support - Continue AnalgoSedation with Propofol and Fentanyl with CPOT gal less than or euqal to 2 and RASS goal of to 2 (No need for deep sedation) - VAP bundle Recommend elevate head of the bed at 30 to 45 degrees Recommend oral care with chlorhexidne Recommend GI ulcer prophylaxis - Famotidine 20mg IV BID Recommend chemical DVT prophylaxis Total critical care time spent on this patient is 35 minutes managing acute hypoxic respiratory failure needing mechanical ventilation. This time spent include reviewing test results including interpreting chest x-rays, labs and optimizing the ventilator settings,formulating plan of care, discussing the plan of care with the team and the nursing staff.
--- NOTE | 2024-07-04 10:26 | PC.NURSE ---
full bath and linen change.
[2024-07-04] MEDS: propofoL 100 ML 20.37 MG IV ×2 (10:43→12:19)
--- NOTE | 2024-07-04 11:39 | DIET.NUTRFU ---
Addendum entered by Kaia King RD, LD 07/04/24 11:43: he was noted to have 2 BM yesterday, regimen continues Original Note: Spoke to nursing this AM, TF was hgeld last night secondary to having suction d/t mucus plug, Dr Shaw states since ett has leak have er md come and exchange tube with bougie. This morning was SBT trial, plan to start TF post SBT will start at 40ml/hr where left off yesterday. Patient is at increase risk for malnutrition secondary have been unable to meet nutritional goals.
--- NOTE | 2024-07-04 12:06 | CT_ITS ---
FINAL REPORT TECHNIQUE: Thin section axial CT with contrast with multiplanar reconstruction. Coronal and sagittal reconstructions were obtained. This study was performed with techniques to keep radiation doses as low as reasonably achievable, (ALARA). Individualized dose reduction techniques using automated exposure control or adjustment of mA and/or kV according to the patient''s size were employed. CLINICAL HISTORY: Hypoxia COMPARISON: 06/26/2024 FINDINGS: Pulmonary vessels enhance in normal fashion without evidence of embolism. Thoracic aorta shows no dissection or aneurysm. There has been significant improvement in right middle lobe and right lower lobe pneumonia. There is new left lower lobe collapse. Mild atelectasis is noted in the dependent portion of the right lower lobe. There is no significant pleural effusion. There is no significant pericardial effusion. No mediastinal or hilar adenopathy is present. NG tube is present in the stomach. IMPRESSION: Interval development of left lower lobe collapse. Improved right basilar pneumonia. No evidence of pulmonary embolism. Reviewed, Interpreted and Dictated by Alicia Amezcua MD Transcribed by Meliza Morales Authenticated and [facility]
--- NOTE | 2024-07-04 12:15 | PC.WOUNDNOTE ---
Bruise to left hip skin tear to (L) area to shoulder/back
[2024-07-04 12:25] LABS: POC Glucose,Bedside 122 (70-110)
[2024-07-04 12:25] LABS: POC Glucose,Bedside 136 (70-110)
[2024-07-04 12:25] LABS: POC Glucose,Bedside 150 (70-110)
[2024-07-04 12:25] LABS: POC Glucose,Bedside 148 (70-110)
[2024-07-04 12:25] LABS: POC Glucose,Bedside 149 (70-110)
[2024-07-04 12:25] LABS: POC Glucose,Bedside 191 (70-110)
--- NOTE | 2024-07-04 12:45 | PC.NURSE ---
pt going to radiology at this time for ct scan. RT at bedside for transport. pt on transport vent, satellite project site monitor, bp, and pulse ox. ambu bag at bedside. Eloisa, pt's girlfriend updated on pt going to radiology.
[2024-07-04] MEDS: SODIUM CHLORIDE 0.9% 10ML SYR (RAD ONLY) 10 ML IV (13:09)
[2024-07-04] MEDS: 0.9 % SODIUM CHLORIDE 50 ML VIAL IV (13:09)
[2024-07-04] MEDS: IOPAMIDOL-370 (76%);100ML BOTTLE 85 ML IV (13:11)
--- NOTE | 2024-07-04 13:22 | PC.NURSE ---
pt returned from radiology at this time. pt remained stable. vss.
--- NOTE | 2024-07-04 14:25 | PC.NURSE ---
time out called for bronchoscopy. see invasive procedure charting on worklist. 1453- complete. Washes taken from LLL. et tube now at 26 @ lip per Dr[address] Shaw. fio2-100%, peep-10, TV-460, R-22. sats 87%
[2024-07-04] MEDS: MIDAZOLAM 2MG/2ML VIAL 2 MG IV (14:32)
[2024-07-04] MEDS: FENTANYL 100MCG/2ML VIAL 50 MCG IV (14:34)
[2024-07-04] MEDS: propofoL 100 ML 29.1 MG IV (14:42)
--- NOTE | 2024-07-04 15:14 | PC.NURSE ---
RT called d/t pt sats staying 84-85%.
--- NOTE | 2024-07-04 15:19 | PC.NURSE ---
MD Shaw notified Of pt's O2 sats declining.
--- NOTE | 2024-07-04 15:28 | XR_ITS ---
FINAL REPORT CLINICAL HISTORY: decreased O2 sats COMPARISON: Chest x-ray 7 hours prior and CTA chest less than 3 hours prior FINDINGS: Mild bibasilar atelectasis is noted. There is a left basilar opacity which corresponds to the known left lower lobe collapse. Mediastinum is unremarkable. ET tube is in good position. NG tube is seen entering the stomach. Heart size is normal. IMPRESSION: ET tube in good position. No significant change from prior chest x-ray or CTA earlier today. Reviewed, Interpreted and Dictated by Alicia Amezcua MD Transcribed by Meliza Morales Authenticated and . [facility]
--- NOTE | 2024-07-04 15:47 | PC.NURSE ---
MD Shaw in room with pt. RT at bedside bagging pt. Stat CXR obtained.
--- NOTE | 2024-07-04 16:15 | PC.NURSE ---
pt placed back on the ventilator at this time per Dr. Shaw and RT. sats 90%. Pressure Control 20/6, FIO2-100%, R-24.
--- NOTE | 2024-07-04 16:16 | EXP.BRONCH.N ---
Procedure: Date: 07/04/24 Patient Date of :: 1965 Procedure Performed:: Bronchoscopy with airway examination bronchoalveolar lavage Indications:: Hypoxic respiratory failure. Left lower lobe atelectasis Performing Provider:: Benja Shaw MD Referring Provider:: Dr. Grace Sedation:: Patient receiving propofol and fentanyl for sedation. Patient received additional 2 mg of IV Versed and 50 mcg of fentanyl IV to facilitate the procedure Procedure:: Bronchoscopy airway examination, bronchoalveolar lavage and transbronchial lung biopsy: A clean therapeutic bronchoscopy was advanced through the ET tube and airways were examined up to subsegmental bronchi. Airways appeared grossly normal. Significant amount of thick tenacious mucoid secretions were noted in the left lower lobe bronchus that were completely suctioned. Scant tenacious mucoid secretions were also noted in the right lung bronchus that were suctioned. No evidence of mucoid impaction/bleeding/old blood clots noted. Bronchoalveolar lavage was performed in the LEFT LOWERLOBE with instillation of 60 cc normal saline with return of 25cc back. BAL fluid was sent for cell count and differential along with bacterial fungal and AFB stain and cultures. Patient tolerated the procedure with no immediate acute complications. Findings:: Please see the procedure note Recommendations:: Please see the progress note from today Complications:: No acute immediate complication Estimated blood obtained (mL): 0
--- NOTE | 2024-07-04 16:40 | PC.NURSE ---
heel protectors and elbow protectors in place.
[2024-07-04 16:48] LABS: POC Glucose,Bedside 163 (70-110)
[2024-07-04 17:24] LABS: ABG Base Excess 11.3 mmol/L (-2.4-2.3); ABG HCO3 36.5 mmhg (22.0-26.0); ABG Oxygen Saturation 91 % (90-100); ABG PH 7.38 mmol/L (7.35-7.45); ABG PO2 57.4 mmhg (80-100); ABG TCO2 38.4 mmhg (23-27); Oxygen 100 %; PEEP 20/6; Vent Rate 24
[2024-07-04 17:25] LABS: ABG PCO2 63.5 mmhg (35.0-45.0); Allen's Test Patient Unable; Source Right Radial
[2024-07-04] MEDS: ACETYLCYSTEINE 20% 4ML VIAL 2 ML IH (18:20)
[2024-07-04] MEDS: ATORVASTATIN 40MG TABLET 40 MG PO (20:03)
[2024-07-04 20:55] LABS: POC Glucose,Bedside 131 (70-110)
--- NOTE | 2024-07-04 21:22 | P.PN_ITS ---
Subjective *Date: 07/04/24 *Time: 21:22 Interval history: Had a significant respiratory event overnight. Necessitated tube exchange. Cuff leak noted. Patient doing better since tube exchange. Suction performed with improved aeration due to significant mucus. Further findings on exam this morning. Mother at bedside today. Updated on progress. Patient tolerating tube feeds. finally had BM today Medical Exam Vital signs and Labs for Last 24 Hours: Vital Signs Temp Pulse Pulse Resp BP Pulse Ox O2 Del Method 07/04/24 21:00 69 21 108/63 L 92 L Mechanical Ventilation 07/04/24 20:30 101/63 L 07/04/24 20:28 24 93 L 07/04/24 20:00 70 07/04/24 20:00 74 90 L Mechanical Ventilation 07/04/24 20:00 98.9 F 68 24 98/59 L 91 L Mechanical Ventilation 07/04/24 20:00 98/59 L 07/04/24 19:30 99/64 L 07/04/24 19:30 69 24 91 L 07/04/24 19:00 100/60 L 07/04/24 19:00 68 24 92 L 07/04/24 18:39 Mechanical Ventilation 07/04/24 18:39 67 24 103/65 L 92 L Mechanical Ventilation 07/04/24 18:30 65 24 94 L 07/04/24 18:30 103/65 L 07/04/24 18:20 68 07/04/24 18:20 69 07/04/24 18:20 95 Mechanical Ventilation 07/04/24 18:20 24 95 07/04/24 18:00 109/71 L 07/04/24 18:00 64 24 95 07/04/24 17:52 07/04/24 17:52 65 24 102/64 L 95 Mechanical Ventilation 07/04/24 17:30 102/64 L 07/04/24 17:30 66 24 95 07/04/24 17:00 97/61 L 07/04/24 17:00 67 24 93 L 07/04/24 16:49 Mechanical Ventilation 07/04/24 16:49 98.7 F 68 24 91/57 L 92 L Mechanical Ventilation 07/04/24 16:30 91/57 L 07/04/24 16:30 72 24 91 L 07/04/24 16:15 65 24 106/74 L 90 L Mechanical Ventilation 07/04/24 16:10 106/74 L 07/04/24 16:10 63 13 90 L 07/04/24 16:04 93/53 L 07/04/24 16:04 73 24 82 L 07/04/24 16:00 24 91 L Mechanical Ventilation 07/04/24 16:00 75 24 84 L 07/04/24 16:00 80 07/04/24 15:59 89/59 L 07/04/24 15:59 76 24 84 L 07/04/24 15:55 78 23 84 L 07/04/24 15:55 85/49 L 07/04/24 15:50 78 77/45 L 78 L Ambu-Bag 07/04/24 15:50 79 35 H 79 L 07/04/24 15:50 77/45 L 07/04/24 15:49 80 43 H 79 L 07/04/24 15:49 78/47 L 07/04/24 15:46 77 23 78 L 07/04/24 15:46 87/46 L 07/04/24 15:45 77 87/46 L 79 L Ambu-Bag 07/04/24 15:39 100/58 L 07/04/24 15:39 77 20 86 L 07/04/24 15:34 78 24 91 L 07/04/24 15:34 86/64 L 07/04/24 15:30 77 45 H 89 L 07/04/24 15:30 96/59 L 07/04/24 15:27 80 34 H 79 L 07/04/24 15:27 98/60 L 07/04/24 15:21 92/65 L 07/04/24 15:21 79 20 83 L 07/04/24 15:19 91 H 92/65 L 86 L 07/04/24 15:00 109/58 L 07/04/24 15:00 Mechanical Ventilation 07/04/24 15:00 91 H 22 109/58 L 89 L Mechanical Ventilation 07/04/24 15:00 93 H 20 89 L 07/04/24 14:34 129/74 07/04/24 14:34 88 15 96 07/04/24 14:30 124/85 07/04/24 14:30 81 12 98 07/04/24 14:27 110/65 07/04/24 14:27 64 22 98 07/04/24 14:00 Mechanical Ventilation 07/04/24 14:00 112/64 07/04/24 14:00 64 22 98 07/04/24 13:42 98 07/04/24 13:42 63 22 117/72 98 Mechanical Ventilation 07/04/24 13:30 117/72 07/04/24 13:30 68 22 98 07/04/24 13:20 143/84 H 07/04/24 13:20 63 23 98 07/04/24 13:14 59 L 21 97 07/04/24 13:00 Mechanical Ventilation 07/04/24 13:00 64 22 143/84 H 98 Mechanical Ventilation 07/04/24 12:30 74 19 95 07/04/24 12:30 119/80 07/04/24 12:00 114/68 07/04/24 12:00 67 22 90 L 07/04/24 12:00 80 07/04/24 11:55 22 89 L Mechanical Ventilation 07/04/24 11:55 72 22 105/69 L 89 L Mechanical Ventilation 07/04/24 11:30 105/69 L 07/04/24 11:30 73 18 87 L 07/04/24 11:00 Mechanical Ventilation 07/04/24 11:00 110/67 07/04/24 11:00 72 17 88 L 07/04/24 10:00 91 L 07/04/24 10:00 75 22 94/63 L 91 L Mechanical Ventilation 07/04/24 09:45 96 07/04/24 09:01 108/66 L 07/04/24 09:00 69 99 07/04/24 09:00 Mechanical Ventilation 07/04/24 09:00 73 22 108/66 L 97 Mechanical Ventilation 07/04/24 08:00 70 07/04/24 07:37 22 98 Mechanical Ventilation 07/04/24 07:37 98.9 F 68 22 92/49 L 98 Mechanical Ventilation 07/04/24 07:00 91/51 L 07/04/24 07:00 63 98 07/04/24 06:46 Mechanical Ventilation 07/04/24 06:30 67 07/04/24 06:30 65 07/04/24 06:30 22 07/04/24 06:00 96 Mechanical Ventilation 07/04/24 06:00 71 98 07/04/24 06:00 104/56 L 07/04/24 05:00 97/50 L 07/04/24 05:00 70 22 97 Mechanical Ventilation 07/04/24 05:00 Mechanical Ventilation 07/04/24 04:01 22 96 07/04/24 04:00 80 07/04/24 04:00 99.3 F 73 22 96 Mechanical Ventilation 07/04/24 04:00 102/47 L 07/04/24 04:00 72 96 Mechanical Ventilation 07/04/24 03:00 108/48 L 07/04/24 03:00 77 18 96 Mechanical Ventilation 07/04/24 03:00 Mechanical Ventilation 07/04/24 02:00 79 22 106/45 L 96 Mechanical Ventilation 07/04/24 01:56 22 96 07/04/24 01:00 Mechanical Ventilation 07/04/24 01:00 85 22 97/52 L 96 Room Air, Mechanical Ventilation 07/04/24 00:04 86 07/04/24 00:04 84 07/04/24 00:04 95 Mechanical Ventilation 07/04/24 00:04 22 95 07/04/24 00:00 90 07/04/24 00:00 115/55 L 07/04/24 00:00 100.0 F H 87 27 H 96 Mechanical Ventilation 07/04/24 00:00 86 96 Mechanical Ventilation 07/03/24 23:00 Mechanical Ventilation 07/03/24 23:00 88 25 H 102/49 L 95 Mechanical Ventilation 07/03/24 22:35 22 94 L 07/03/24 22:00 106/55 L 07/03/24 22:00 91 H 21 95 FiO2 07/04/24 21:00 07/04/24 20:30 07/04/24 20:28 100 07/04/24 20:00 07/04/24 20:00 100 07/04/24 20:00 07/04/24 20:00 07/04/24 19:30 07/04/24 19:30 07/04/24 19:00 07/04/24 19:00 07/04/24 18:39 07/04/24 18:39 07/04/24 18:30 07/04/24 18:30 07/04/24 18:20 07/04/24 18:20 07/04/24 18:20 100 07/04/24 18:20 100 07/04/24 18:00 07/04/24 18:00 07/04/24 17:52 07/04/24 17:52 07/04/24 17:30 07/04/24 17:30 07/04/24 17:00 07/04/24 17:00 07/04/24 16:49 07/04/24 16:49 07/04/24 16:30 07/04/24 16:30 07/04/24 16:15 07/04/24 16:10 07/04/24 16:10 07/04/24 16:04 07/04/24 16:04 07/04/24 16:00 07/04/24 16:00 07/04/24 16:00 07/04/24 15:59 07/04/24 15:59 07/04/24 15:55 07/04/24 15:55 07/04/24 15:50 07/04/24 15:50 07/04/24 15:50 07/04/24 15:49 07/04/24 15:49 07/04/24 15:46 07/04/24 15:46 07/04/24 15:45 07/04/24 15:39 07/04/24 15:39 07/04/24 15:34 07/04/24 15:34 07/04/24 15:30 07/04/24 15:30 07/04/24 15:27 07/04/24 15:27 07/04/24 15:21 07/04/24 15:21 07/04/24 15:19 07/04/24 15:00 07/04/24 15:00 07/04/24 15:00 07/04/24 15:00 07/04/24 14:34 07/04/24 14:34 07/04/24 14:30 07/04/24 14:30 07/04/24 14:27 07/04/24 14:27 07/04/24 14:00 07/04/24 14:00 07/04/24 14:00 07/04/24 13:42 07/04/24 13:42 07/04/24 13:30 07/04/24 13:30 07/04/24 13:20 07/04/24 13:20 07/04/24 13:14 07/04/24 13:00 07/04/24 13:00 07/04/24 12:30 07/04/24 12:30 07/04/24 12:00 07/04/24 12:00 07/04/24 12:00 07/04/24 11:55 80 07/04/24 11:55 07/04/24 11:30 07/04/24 11:30 07/04/24 11:00 07/04/24 11:00 07/04/24 11:00 07/04/24 10:00 80 07/04/24 10:00 07/04/24 09:45 80 07/04/24 09:01 07/04/24 09:00 07/04/24 09:00 07/04/24 09:00 07/04/24 08:00 07/04/24 07:37 100 07/04/24 07:37 07/04/24 07:00 07/04/24 07:00 07/04/24 06:46 07/04/24 06:30 07/04/24 06:30 07/04/24 06:30 100 07/04/24 06:00 07/04/24 06:00 07/04/24 06:00 07/04/24 05:00 07/04/24 05:00 07/04/24 05:00 07/04/24 04:01 07/04/24 04:00 07/04/24 04:00 07/04/24 04:00 07/04/24 04:00 07/04/24 03:00 07/04/24 03:00 07/04/24 03:00 07/04/24 02:00 07/04/24 01:56 07/04/24 01:00 07/04/24 01:00 07/04/24 00:04 07/04/24 00:04 07/04/24 00:04 07/04/24 00:04 07/04/24 00:00 07/04/24 00:00 07/04/24 00:00 07/04/24 00:00 07/03/24 23:00 07/03/24 23:00 07/03/24 22:35 07/03/24 22:00 07/03/24 22:00 Intake and Output 07/04/24 07/04/24 07/04/24 07:59 15:59 23:59 Intake Total 351.004 / 624.430 183.426 / 624.430 90 / 624.430 Output Total 495 / 1450 410 / 1450 545 / 1450 Balance -143.996 / -825.570 -226.574 / -825.570 -455 / -825.570 Intake: Intake, Tube Irrigant Amount 60 / 150 90 / 150 Intake, Total IV Amount 291.004 / 474.430 183.426 / 474.430 Output: Output, Urine Amount 30 / 225 195 / 225 Output, Urine Amount (Catheter) 495 / 1225 380 / 1225 350 / 1225 Muhammad 495 / 1225 380 / 1225 350 / 1225 Other: Number of Unmeasured Voids 0 Number of Bowel Movements 1 Weight 93.032 kg Patient Weight 07/04/24 23:59 Weight 93.032 kg Laboratory Results - last 24 hr 07/03/24 12:03: POC Glucose 148 H 07/03/24 18:37: POC Glucose 191 H 07/03/24 20:35: POC Glucose 149 H 07/04/24 00:28: POC Glucose 122 H 07/04/24 05:21: WBC 15.1 H D, RBC 5.05, Hgb 14.6, Hct 48.2, MCV 95.4 H, MCH 28.9, MCHC 30.3 L, RDW 15.7, Plt Count 212, MPV 11.0 H, Neut % (Auto) 85.9 H, Lymph % (Auto) 5.9 L, [place] % (Auto) 7.7, Eos % (Auto) 0.0 L, Baso % (Auto) 0.1, Neut # (Auto) 13.0 H, Lymph # (Auto) 0.9, [place] # (Auto) 1.2 H, Eos # (Auto) 0.0, Baso # (Auto) 0.0, Total Counted 100, Neutrophils % (Manual) 94 H, Lymphocytes % (Manual) 5 L, Monocytes % (Manual) 1 L, Platelet Estimate Normal, RBC Morphology Normal, Sodium 136, Potassium 4.9, Chloride 92 L, Carbon Dioxide 40 H, Anion Gap 8.9, BUN 37 H, Creatinine 0.70, Estimated Creat Clear 151, Estimated GFR 116, Est GFR ( Amer) 140, Glucose 165 H, Calcium 8.7, Phosphorus 4.3, Magnesium 1.9, Total Bilirubin 0.9, AST 36, ALT 23, Alkaline Phosphatase 71, C- Reactive Protein 13.6 H, Total Protein 6.2 L, Albumin 3.3 L, Globulin 2.9, Albumin/Globulin Ratio 1.1, Procalcitonin 0.124 07/04/24 05:59: POC Glucose 150 H 07/04/24 08:47: WBC 13.7 H, RBC 5.06, Hgb 14.4, Hct 47.8, MCV 94.5 H, MCH 28.5, MCHC 30.1 L, RDW 15.7, Plt Count 205, MPV 11.2 H, Neut % (Auto) 78.3, Lymph % (Auto) 12.0, [place] % (Auto) 8.9, Eos % (Auto) 0.3, Baso % (Auto) 0.1, Neut # (Auto) 10.7 H, Lymph # (Auto) 1.7, [place] # (Auto) 1.2 H, Eos # (Auto) 0.0, Baso # (Auto) 0.0 07/04/24 11:47: POC Glucose 136 H 07/04/24 16:16: POC Glucose 163 H 07/04/24 16:45: Specimen Source Right radial, O2 % 100, ABG pH 7.38, ABG pCO2 63.5 H, ABG pO2 57.4 L, ABG HCO3 36.5 H, ABG Total CO2 38.4 H, ABG O2 Saturation 91, ABG Base Excess 11.3 H, Ben Test Patient unable, Vent Rate 24, PEEP 20/6 07/04/24 20:44: POC Glucose 131 H I & O for Labs for Last 24 Hours: Intake & Output 07/01/24 07/02/24 07/03/24 07/04/24 23:59 23:59 23:59 23:59 Intake Total 1242.746 / 9969.341 8746.925 / 0856.463 9792.194 / 1809.194 624.430 / 624.430 Output Total 2625 / 2685 1680 / 1805 1930 / 2055 1450 / 1450 Balance -1382.254 / -1406.921 -29.075 / 191.925 -120.806 / -245.806 -825.570 / - 825.570 Weight 93.894 kg 92.85 kg 94.755 kg 93.032 kg Constitutional: Present no acute distress, chronically ill appearing and somnolent Head: Present atraumatic and normocephalic ENT: Present normal exam Comment:: ET tube in place, OG in place with no blood in tube Neck: Present normal inspection Respiratory: Present patient mechanically ventilated and symmetric chest movement; Absent respiratory distress, rhonchi, wheezes or crackles (LLL) Comment:: Improved aeration right lower lung field today Cardiac: Present Reg Rate and Rhythm GI: Present soft and normal bowel sounds; Absent distention or tenderness Extremities: Present normal inspection; Absent edema Skin: Present intact and dry (Significant scale, chronic); Absent erythema Neuro: Present moves all extremities (Spontaneous); Absent alert, awake or oriented x 3 Comment:: Sedated, minimal spontaneous movement Assessment and Plan *Assessment and plan (1) Severe sepsis: Status: Acute Category: Medical Code(s): A41.9 - Sepsis, unspecified organism; R65.20 - Severe sepsis without septic shock (2) Acute respiratory failure with hypoxia: Status: Acute Category: Medical Code(s): J96.01 - Acute respiratory failure with hypoxia (3) Acute exacerbation of chronic obstructive pulmonary disease (COPD): Status: Acute Category: Medical Code(s): J44.1 - Chronic obstructive pulmonary disease with (acute) exacerbation (4) Community acquired pneumonia: Status: Acute Qualifiers: Laterality: unspecified laterality Qualified Code(s): J18.9 - Pneumonia, unspecified organism Category: Medical Code(s): J18.9 - Pneumonia, unspecified organism (5) Diabetes mellitus: Status: Acute Qualifiers: Diabetes mellitus type: type 2 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: without group home use Diabetes mellitus complication status: without complication Qualified Code(s): E11.9 - Type 2 diabetes mellitus without complications Category: Medical Code(s): E11.9 - Type 2 diabetes mellitus without complications (6) Polycythemia vera: Status: Acute Category: Medical Code(s): D45 - Polycythemia vera (7) Pulmonary emphysema: Status: Acute Qualifiers: Emphysema type: centrilobular Qualified Code(s): J43.2 - Centrilobular emphysema Category: Medical Code(s): J43.9 - Emphysema, unspecified (8) RVF (right ventricular failure): Status: Acute Category: Medical Code(s): I50.810 - Right heart failure, unspecified (9) CAD (coronary artery disease): Status: Acute Qualifiers: Coronary Disease-Associated Artery/Lesion type: [place] artery [place] vs. transplanted heart: [place] heart Associated angina: without angina Qualified Code(s): I25.10 - Atherosclerotic heart disease of [place] coronary artery without angina pectoris Category: Medical Code(s): I25.10 - Atherosclerotic heart disease of [place] coronary artery without angina pectoris (10) Hypertension: Status: Acute Qualifiers: Hypertension type: unspecified Qualified Code(s): I10 - Essential (primary) hypertension Category: Medical Code(s): I10 - Essential (primary) hypertension (11) HLD (hyperlipidemia): Status: Acute Qualifiers: Hyperlipidemia type: mixed hyperlipidemia Qualified Code(s): E78.2 - Mixed hyperlipidemia Category: Medical Code(s): E78.5 - Hyperlipidemia, unspecified Plan Daniel Kwan is a 59-year-old male with a medical history significant for COPD on 2 L, severe sleep apnea, CAD with stent, hypertension, hyperlipidemia, type 2 diabetes who presents with worsening shortness of breath. He states he has not been taking his medications for many weeks and then he became increasingly short of breath over the past 2 weeks. Denies chest pain. Workup in the ED significant for a compensated ABG, D-dimer 0.85, BNP 1160. CTA chest revealed multifocal pneumonia in bilateral lungs with no evidence of PE. CXR suggests possible volume overload versus pneumonia. Initially on Vapotherm, eventually required intubation. Patient continues to have a difficult time weaning. Reinitiating tube feeds. Problems addressed as follows: #Acute hypoxic respiratory failure # Severe sepsis #Multifocal community-acquired pneumonia # Acute COPD exacerbation ? Continue ventilator with PEEP 10, FiO2 100%, tidal volume 440, rate 22. Per my review of chest x-ray this morning, improved aeration especially in the right lower lobe that was collapsed yesterday. - Discussed case with pulmonology, planning on bronchoscopy. -Complete antibiotics tomorrow with cefepime - Continue methylprednisolone 40 mg twice daily IV -CRP 13.6 today, Pro-Haile 0.124. - Repeat CBC, CMP, magnesium, CRP, procalcitonin ordered for the morning. - Continue Xopenex ipratropium every 4 hours and Pulmicort twice daily. -Finally had bowel movement today. Will continue docusate and senna twice daily. -Continue analgo-sedation with fentanyl and propofol. -Continue pantoprazole 40 mg IV twice daily. Monitoring for significant bleeding. Hemoglobin stable. No signs of anemia. #Possible HFpEF exacerbation # CAD, hypertension, hyperlipidemia ? Administer Lasix once today. - Coronary artery disease is likely stable. He ruled out for an IL. No plans for invasive left cardiac catheterization at this time. ? Holding Farxiga as it cannot be crushed per tube. Holding aspirin and Plavix due to blood in G-tube. Patient over 1yr out from his last cath #Type 2 diabetes ? ACHS glucose checks, high intensity sliding scale. Glucose 165 on morning labs. Continue insulin glargine 25 units nightly -Continue tube feed. Resume tube feeds today - BUN 37, creatinine 0.7. Potassium 4.9. Magnesium 1.9. Phosphorus 4.3 Constipation: Has not pooped in 5 days. KUB was obtained over weekend showing constipation. No free air. Abdomen soft. Active bowel sounds. Continue MiraLAX every 6 hours. Getting daily enemas. Tube feeds running. ICU/Critical care attestation This patient is critically ill with 31 minutes devoted solely to this patient managing life/organ supporting interventions that required physician assessment. This includes time spent making adjustments in ventilator settings, IV fluid administration, titration of pressors, adjustments of medications, discussion of patient with consultants and other care providers as well as updating patient and/or family (if patient by virtue of his/her condition is unable to participate in decision making). This does not include time spent performing separately billed procedures. Time is not concurrent with that of other providers. Full code DVT prophylaxis: Lovenox 40 mg subcu daily tube feeds
[2024-07-04] MEDS: propofoL 100 ML 17.46 MG IV (21:41)
[2024-07-05] VITALS (51 sets, daily range): BP systolic 100–189; BP diastolic 56–122; PULSE 57–109; RESP 10–26; TEMP 36.8–37.4; O2SAT 81–95; BMI 27.8
[2024-07-05] MEDS: humaLOG 100 UNITS/ML 10ML VIAL (SSI) SUBCUT ×2 (00:12→05:52)
[2024-07-05 00:17] LABS: POC Glucose,Bedside 165 (70-110)
[2024-07-05] MEDS: CEFEPIME HCL 2 GM in 0.9 % SODIUM CHLORIDE 100 ML IV ×3 (01:21→17:20)
[2024-07-05] MEDS: FENTANYL CITRATE/PF 1,000 MCG in 0.9 % SODIUM CHLORIDE 80 ML 9 MCG IV (01:50)
[2024-07-05] MEDS: propofoL 100 ML 17.46 MG IV ×3 (01:51→21:44)
[2024-07-05 05:58] LABS: POC Glucose,Bedside 157 (70-110)
--- NOTE | 2024-07-05 06:00 | XR_ITS ---
PROCEDURE INFORMATION: Exam: XR Chest Exam date and time: 07/05/2024 5:39 AM Age: 59 years old Clinical indication: Other: Pneumonia mechanical ventilation TECHNIQUE: Imaging protocol: Radiologic exam of the chest. Views: 1 view. COMPARISON: CR XR CHEST PORTABLE 07/04/2024 3:26 PM FINDINGS: Tubes, catheters and devices: Endotracheal tube terminates 4.7 cm from the nano. Enteric tube traverses midline, terminates in the left upper quadrant, subdiaphragmatic. Lungs: Basilar infiltrates similar to prior comparison. Hypoventilatory changes of the bilateral lungs. Pleural spaces: Blunting of the bilateral costophrenic angles, left definitively worsening from prior comparison. Heart/Mediastinum: Unremarkable. No cardiomegaly. Bones/joints: Unremarkable. IMPRESSION: 1. Increasing left pleural effusion with suggestion of possible mild increase in right pleural effusion. 2. Basilar lung markings are similar to prior comparison.
[2024-07-05] MEDS: BUDESONIDE 0.5MG/2ML NEB 0.5 MG IH ×2 (06:10→17:52)
[2024-07-05] MEDS: ACETYLCYSTEINE 20% 4ML VIAL 2 ML IH ×2 (06:23→17:52)
[2024-07-05] MEDS: LEVALBUTEROL 1.25MG/3ML NEB 1.25 MG IH ×4 (06:23→23:17)
[2024-07-05] MEDS: IPRATROPIUM BROMIDE 0.5 MG/2.5ML SOLUTION IH ×4 (06:23→23:17)
[2024-07-05 07:06] LABS: Basophils % 0.1 % (0.1-2.0); Eosinophils # 0.1 K/mm3 (0.0-0.4); Eosinophils % 0.5 % (0.1-12.0); Hematocrit 45.6 % (42.0-52.0); Hemoglobin 14.1 g/dL (14.1-18.0); Lymphocytes # 1.3 K/mm3 (0.7-4.5); Lymphocytes % 11.3 % (10-50); Mean Corpuscular HGB Conc 30.9 g/dL (31.8-35.4); Mean Corpuscular Hemoglobin 28.8 pg (27.0-31.2); Mean Corpuscular Volume 93.3 fl (80-94); Monocytes # 1.2 K/mm3 (0.1-1.0); Neutrophils # 9.1 K/mm3 (1.8-7.8); Neutrophils % 77.4 % (37.0-80.0); Platelet Count 220 K/mm3 (142-424); Red Blood Count 4.89 M/mm3 (4.60-6.20); Red Cell Distribution Width 15.6 % (11.5-17.5); White Blood Count 11.7 K/mm3 (4.8-10.8)
[2024-07-05 07:32] LABS: Alanine Aminotransferase 26 U/L (12-78); Albumin Level 3.3 g/dl (3.5-5.0); Albumin/Globulin Ratio 1.2 (1.1-1.8); Alkaline Phosphatase 72 U/L (38-126); Anion Gap 10.4 mEq/L (5-15); Aspartate Amino Transferase 36 U/L (17-59); Blood Urea Nitrogen 36 mg/dl (9-20); Calcium 9.1 mg/dl (8.4-10.2); Carbon Dioxide 35 mmol/L (22.0-30.0); Chloride 95 mmol/L (98-107); Creatinine Clearance Estimated 177 mL/min (50-200); Estimated Glomerular Filt Rate 138 ml/min (>60); GFR (African American) 167 ML/MIN (>60); Globulin 2.8 g/dL (1.3-3.2); Glucose 135 mg/dl (74-100); Potassium 4.4 mmoL/L (3.5-5.1); Sodium 136 mmol/L (136-145); Total Protein,Serum 6.1 g/dl (6.3-8.2)
[2024-07-05 07:37] LABS: C-Reactive Protein 28.4 mg/L (0-4)
[2024-07-05 08:05] LABS: Magnesium 1.8 mg/dl (1.6-2.3)
[2024-07-05 08:20] LABS: Procalcitonin 0.086 ng/mL (0.0-2.0)
[2024-07-05] MEDS: DAPAGLIFLOZIN PROPANEDIOL 10 MG TABLET PO (09:20)
[2024-07-05] MEDS: guaiFENesin 200MG/10ML SYRUP UDC 200 MG PO ×2 (09:20→20:21)
[2024-07-05] MEDS: METHYLPREDNISOLONE SOD SUCC 40MG VIAL 40 MG IV ×2 (09:21→20:21)
[2024-07-05] MEDS: PANTOPRAZOLE 40MG VIAL 40 MG IV ×2 (09:22→20:21)
[2024-07-05] MEDS: SODIUM CHLORIDE 0.9% 10ML VIAL 10 ML IV (09:22)
[2024-07-05] MEDS: ENOXAPARIN 40MG/0.4ML SYRINGE 40 MG SUBCUT (09:41)
--- NOTE | 2024-07-05 09:46 | DIET.NUTRFU ---
Spoke to nursing this AM, tubefeeding was on hold yesterday secondary to bronchscopy, will consult pulmonary to restart today. Patient is at high risk for malnutrition, he has not received recommended tubefeeding regimen since 06/28 d/t complications. Labs reviewed, no bolus IVF since 07/03. Spoke to nursing about continuing flush.
[2024-07-05] MEDS: MAGNESIUM SULFATE IN WATER 2 GM/50 ML PIGGYBACK IV (10:13)
--- NOTE | 2024-07-05 10:26 | PC.NURSE ---
IV in right forearm leaking when flushed on assessment. IV discontinued at this time. Tip intact.
--- NOTE | 2024-07-05 11:07 | EXP.PULM.PN ---
Subjective *Date: 07/05/24 *Time: 11:07 Interval history: No acute respiratory vents overnight. Pulmonology Exam Inpatient Vital signs and Labs for Last 24 Hours: Temp Pulse Resp BP Pulse Ox O2 Del Method O2 Flow Rate 99.3 F 74 24 129/82 88 L Mechanical Ventilation 70 07/05/24 04:00 07/05/24 10:00 07/05/24 10:00 07/05/24 10:00 07/05/24 10:00 07/05/24 10:00 07/03/24 11:00 FiO2 100 07/05/24 09:00 Laboratory Results - last 24 hr 07/03/24 12:03: POC Glucose 148 H 07/03/24 18:37: POC Glucose 191 H 07/03/24 20:35: POC Glucose 149 H 07/04/24 00:28: POC Glucose 122 H 07/04/24 05:59: POC Glucose 150 H 07/04/24 11:47: POC Glucose 136 H 07/04/24 16:16: POC Glucose 163 H 07/04/24 16:45: Specimen Source Right radial, O2 % 100, ABG pH 7.38, ABG pCO2 63.5 H, ABG pO2 57.4 L, ABG HCO3 36.5 H, ABG Total CO2 38.4 H, ABG O2 Saturation 91, ABG Base Excess 11.3 H, Ben Test Patient unable, Vent Rate 24, PEEP 20/6 07/04/24 20:44: POC Glucose 131 H 07/05/24 00:09: POC Glucose 165 H 07/05/24 05:24: WBC 11.7 H, RBC 4.89, Hgb 14.1, Hct 45.6, MCV 93.3, MCH 28.8, MCHC 30.9 L, RDW 15.6, Plt Count 220, MPV 12.0 H, Neut % (Auto) 77.4, Lymph % (Auto) 11.3, [facility] % (Auto) 10.0 H, Eos % (Auto) 0.5, Baso % (Auto) 0.1, Neut # (Auto) 9.1 H, Lymph # (Auto) 1.3, [facility] # (Auto) 1.2 H, Eos # (Auto) 0.1, Baso # (Auto) 0.0, Sodium 136, Potassium 4.4, Chloride 95 L, Carbon Dioxide 35 H, Anion Gap 10.4, BUN 36 H, Creatinine 0.60 L, Estimated Creat Clear 177, Estimated GFR 138, Est GFR ( Amer) 167, Glucose 135 H, Calcium 9.1, Magnesium 1.8, Total Bilirubin 1.0, AST 36, ALT 26, Alkaline Phosphatase 72, C-Reactive Protein 28.4 H D, Total Protein 6.1 L, Albumin 3.3 L, Globulin 2.8, Albumin/Globulin Ratio 1.2, Procalcitonin 0.086 07/05/24 05:50: POC Glucose 157 H I & O for Labs for Last 24 Hours: Intake & Output 07/02/24 07/03/24 07/04/24 07/05/24 23:59 23:59 23:59 23:59 Intake Total 1650.925 / 6212.478 7719.194 / 1809.194 740.768 / 740.768 307.662 / 307.662 Output Total 1680 / 1805 1930 / 2055 1450 / 1900 835 / 835 Balance -29.075 / 191.925 -120.806 / -245.806 -709.232 / -1159.232 -527.338 / -527.338 Weight 204 lb 11.2 oz 208 lb 14.4 oz 205 lb 1.6 oz 205 lb 9.6 oz Microbiology Reports for the Last 24 Hours: Microbiology 07/04/24 15:00 Bronchial Washings - Left Lower Lobe Gram Stain - Final Constitutional: Present severe distress Comment:: Intubated and Sedated Head: Present normocephalic and atraumatic Neck: Present normal inspection and trachea midline Respiratory: Present patient mechanically ventilated, prolonged expiratory phase and rhonchi Cardiac: Present S1/S2 and Tachycardia GI: Present soft; Absent distention or tenderness Skin: Present intact; Absent cyanosis Neuro: Absent alert, awake or oriented x 3 Comment:: Intubated and sedated Extremities: Present normal inspection; Absent clubbing or cyanosis Psychiatric: Present unable to assess Assessment and Plan *Assessment and plan (1) Acute exacerbation of chronic obstructive pulmonary disease (COPD): Status: Acute Category: Medical Code(s): J44.1 - Chronic obstructive pulmonary disease with (acute) exacerbation (2) Acute respiratory failure with hypoxia: Status: Acute Category: Medical Code(s): J96.01 - Acute respiratory failure with hypoxia (3) Community acquired pneumonia: Status: Acute Qualifiers: Laterality: unspecified laterality Qualified Code(s): J18.9 - Pneumonia, unspecified organism Category: Medical Code(s): J18.9 - Pneumonia, unspecified organism Plan Mr. Carmona is a 59-year-old male greater than [id number] smoking history, COPD, sleep apnea previously refused CPAP therapy presented to the ER with worsening respiratory distress and pulmonary was called for further evaluation and management. CTA upon admission suboptimal timing, no obvious central pulmonary embolism but right lower lobe airspace disease and consolidative changes noted. AFebrile. Hemodynamically stable. Currently receicing cefepime azithromycin and steroids and nebulization therapies. On initial examination severe respiratory distress. Oxygen desaturation noted with high flow nasal cannula 40 L 100%, escalated to BiPAP therapy with saturations maintained at 89% and above. Mini respiratory viral PCR panel negative lower extremity venous Doppler negative for DVT. Echo continued to show RV dilation and reduced RV function since 2022 likely secondary to uncontrolled sleep apnea and severe COPD. No Doppler evidence of interatrial shunt Nasal MRSA PCR negative. Sputum prelim gram-positive diplococci. Interval update: No acute respiratory events overnight. Plan: Continue propofol and fentanyl for sedation Continue to remain on mechanical ventilator support, pressure control 5/20 with a rate of 24. Stable oxygen requirement since yesterday. CT PE protocol 07/04/2024 no evidence of pulmonary embolism. Clear lung henry with no effusions. Left lower lobe collapse. Status post bronchoscopy 07/04/2024 thick tenacious mucoid secretions from the left lower lobe suction. Airway is otherwise clear. Initiate sildenafil 10 mg 3 times daily Completed 7-day course of cefepime. Continue Xopenex and ipratropium every 6 hours along with Pulmicort every 12 scheduled Continue methylprednisolone 40 mg twice daily IV Hemodynamically stable. MAP greater than 70. Hold tube feed - Continue mechanical ventilatory support - Continue AnalgoSedation with Propofol and Fentanyl with CPOT gal less than or euqal to 2 and RASS goal of to 2 (No need for deep sedation) - VAP bundle Recommend elevate head of the bed at 30 to 45 degrees Recommend oral care with chlorhexidne Recommend GI ulcer prophylaxis - Famotidine 20mg IV BID Recommend chemical DVT prophylaxis Total critical care time spent on this patient is 35 minutes managing acute hypoxic respiratory failure needing mechanical ventilation. This time spent include reviewing test results including interpreting chest x-rays, labs and optimizing the ventilator settings,formulating plan of care, discussing the plan of care with the team and the nursing staff.
[2024-07-05] MEDS: FENTANYL CITRATE/PF 1,000 MCG in 0.9 % SODIUM CHLORIDE 80 ML 7.5 MCG IV (11:58)
[2024-07-05] MEDS: SILDENAFIL 20 MG 0.5 EACH PO ×2 (13:27→23:24)
--- NOTE | 2024-07-05 14:56 | DIET.NUTRFU ---
Spoke to nursing, pulmonary agreed with tubefeeding starting but with goal rate at this time to be 30ml/hr, Nursing to start at 20ml/hr and advance to 30ml as tolerated and hold at 30ml/hr till seen by pulmonary tomorrow.
[2024-07-05 15:41] LABS: ABG Base Excess 8.5 mmol/L (-2.4-2.3); ABG HCO3 33.6 mmhg (22.0-26.0); ABG Oxygen Saturation 91 % (90-100); ABG PH 7.38 mmol/L (7.35-7.45); ABG PO2 62.5 mmhg (80-100); ABG TCO2 35.4 mmhg (23-27)
[2024-07-05 15:55] LABS: Allen's Test acceptable; Oxygen 80 %
[2024-07-05 15:56] LABS: ABG PCO2 57.7 mmhg (35.0-45.0); Source Left Radial
[2024-07-05] MEDS: propofoL 100 ML 11.64 MG IV (16:07)
--- NOTE | 2024-07-05 16:41 | PC.NURSE ---
pt remained on the ventilator throughout the shift. patient was completely weaned off sedation and RT performed a spontaneous breathing trial for about 4 hours. pt tolerated well and O2 sats predominately remained between 88%-92%. during this trial, pt expelled large amounts of thick green mucus and required suctioning. after trial patient placed back on sedation and positive pressure support, FiO2 90%, Peep 5 and a rate of 24bpm. Ett remains at 26 at the lip. OG in place at 60 and tube feedings are scheduled to restart tonight. F/C in place and draining.
[2024-07-05 16:51] LABS: POC Glucose,Bedside 101 (70-110)
[2024-07-05 17:38] LABS: POC Glucose,Bedside 142 (70-110)
--- NOTE | 2024-07-05 18:02 | PC.NURSE ---
Laverne RT notified of patients O2 Sats dropping back to 85% and is at bedside at this time
[2024-07-05] MEDS: ATORVASTATIN 40MG TABLET 40 MG PO (20:21)
[2024-07-05 20:40] LABS: POC Glucose,Bedside 123 (70-110)
[2024-07-05] MEDS: INSULIN GLARGINE 100 UNITS/ML 3ML FLEXPEN 25 UNIT SUBCUT (20:51)
--- NOTE | 2024-07-05 21:31 | P.PN_ITS ---
Subjective *Date: 07/06/24 *Time: 07:48 Exam Data for Last 24 hours Vital signs and Labs for Last 24 Hours: Temp Pulse Resp BP Pulse Ox O2 Del Method O2 Flow Rate 98.7 F 82 25 H 113/71 83 L Mechanical Ventilation 70 07/05/24 20:00 07/05/24 21:00 07/05/24 21:00 07/05/24 21:00 07/05/24 21:00 07/05/24 21:00 07/03/24 11:00 FiO2 100 07/05/24 20:32 Laboratory Results - last 24 hr 07/05/24 00:09: POC Glucose 165 H 07/05/24 05:24: WBC 11.7 H, RBC 4.89, Hgb 14.1, Hct 45.6, MCV 93.3, MCH 28.8, MCHC 30.9 L, RDW 15.6, Plt Count 220, MPV 12.0 H, Neut % (Auto) 77.4, Lymph % (Auto) 11.3, [place] % (Auto) 10.0 H, Eos % (Auto) 0.5, Baso % (Auto) 0.1, Neut # (Auto) 9.1 H, Lymph # (Auto) 1.3, [place] # (Auto) 1.2 H, Eos # (Auto) 0.1, Baso # (Auto) 0.0, Sodium 136, Potassium 4.4, Chloride 95 L, Carbon Dioxide 35 H, Anion Gap 10.4, BUN 36 H, Creatinine 0.60 L, Estimated Creat Clear 177, Estimated GFR 138, Est GFR ( Amer) 167, Glucose 135 H, Calcium 9.1, Magnesium 1.8, Total Bilirubin 1.0, AST 36, ALT 26, Alkaline Phosphatase 72, C-Reactive Protein 28.4 H D, Total Protein 6.1 L, Albumin 3.3 L, Globulin 2.8, Albumin/Globulin Ratio 1.2, Procalcitonin 0.086 07/05/24 05:50: POC Glucose 157 H 07/05/24 11:51: POC Glucose 101 07/05/24 15:12: Specimen Source Left radial, O2 % 80, ABG pH 7.38, ABG pCO2 57.7 H, ABG pO2 62.5 L, ABG HCO3 33.6 H, ABG Total CO2 35.4 H, ABG O2 Saturation 91, ABG Base Excess 8.5 H, Ben Test acceptable, PEEP 10/5 07/05/24 17:31: POC Glucose 142 H 07/05/24 20:26: POC Glucose 123 H I & O for Last 24 hours: Intake & Output 07/02/24 07/03/24 07/04/24 07/05/24 23:59 23:59 23:59 23:59 Intake Total 1650.925 / 1798.904 2962.194 / 1809.194 740.768 / 740.768 547.929 / 547.929 Output Total 1680 / 1805 193 / 5 1450 / 1900 1475 / 1475 Balance -29.075 / 191.925 -120.806 / -245.806 -709.232 / -1159.232 -927.071 / - 927.071 Weight 92.85 kg 94.755 kg 93.032 kg 93.259 kg Microbiology Reports for the Last 24 Hours: Microbiology 07/04/24 15:00 Bronchial Washings - Left Lower Lobe Gram Stain - Final Constitutional Constitutional: no acute distress and average body habitus *Routine HEENT Exam Head: Present normocephalic and atraumatic ENT: Present mucous membranes moist *Routine Neck Exam Neck: Present supple; Absent JVD *Routine Respiratory Exam Respiratory: Present patient mechanically ventilated and rhonchi *Routine Cardiovascular Exam Cardiovascular: Present RRR, Normal S1 and Normal S2; Absent murmur or gallop *Routine Abdominal Exam Abdominal: Present soft and normoactive bowel sounds; Absent organomegaly *Routine Extremities Exam Extremities: Present pulses intact; Absent cyanosis, clubbing or edema *Routine Skin Exam Skin: Present intact *Routine Neurological Exam Neurological: Present altered mental status (Sedated on mechanical ventilation) Routine Psychiatric Exam Psychiatric: Present unable to assess Assessment and Plan *Assessment and plan (1) Severe sepsis: Status: Acute Category: Medical Code(s): A41.9 - Sepsis, unspecified organism; R65.20 - Severe sepsis without septic shock (2) Acute respiratory failure with hypoxia: Status: Acute Category: Medical Code(s): J96.01 - Acute respiratory failure with hypoxia (3) Acute exacerbation of chronic obstructive pulmonary disease (COPD): Status: Acute Category: Medical Code(s): J44.1 - Chronic obstructive pulmonary disease with (acute) exacerbation (4) Community acquired pneumonia: Status: Acute Qualifiers: Laterality: unspecified laterality Qualified Code(s): J18.9 - Pneumonia, unspecified organism Category: Medical Code(s): J18.9 - Pneumonia, unspecified organism (5) Diabetes mellitus: Status: Acute Qualifiers: Diabetes mellitus complication status: without complication Diabetes mellitus assistant terminal manager insulin use: without assistant terminal manager use Diabetes mellitus type: type 2 Qualified Code(s): E11.9 - Type 2 diabetes mellitus without complications Category: Medical Code(s): E11.9 - Type 2 diabetes mellitus without complications (6) Polycythemia vera: Status: Acute Category: Medical Code(s): D45 - Polycythemia vera (7) Pulmonary emphysema: Status: Acute Qualifiers: Emphysema type: centrilobular Qualified Code(s): J43.2 - Centrilobular emphysema Category: Medical Code(s): J43.9 - Emphysema, unspecified (8) RVF (right ventricular failure): Status: Acute Category: Medical Code(s): I50.810 - Right heart failure, unspecified (9) CAD (coronary artery disease): Status: Acute Qualifiers: Associated angina: without angina Coronary Disease-Associated Artery/Lesion type: [place] artery [place] vs. transplanted heart: [place] heart Qualified Code(s): I25.10 - Atherosclerotic heart disease of [place] coronary artery without angina pectoris Category: Medical Code(s): I25.10 - Atherosclerotic heart disease of [place] coronary artery without angina pectoris (10) Hypertension: Status: Acute Qualifiers: Hypertension type: unspecified Qualified Code(s): I10 - Essential (primary) hypertension Category: Medical Code(s): I10 - Essential (primary) hypertension (11) HLD (hyperlipidemia): Status: Acute Qualifiers: Hyperlipidemia type: mixed hyperlipidemia Qualified Code(s): E78.2 - Mixed hyperlipidemia Category: Medical Code(s): E78.5 - Hyperlipidemia, unspecified Plan Daniel Kwan is a 59-year-old male with a medical history significant for COPD on 2 L, severe sleep apnea, CAD with stent, hypertension, hyperlipidemia, type 2 di abetes who presents with worsening shortness of breath. He states he has not been taking his medications for many weeks and then he became increasingly short of breath over the past 2 weeks. Denies chest pain. Workup in the ED significant for a compensated ABG, D-dimer 0.85, BNP 1160. CTA chest revealed multifocal pneumonia in bilateral lungs with no evidence of PE. CXR suggests possible volume overload versus pneumonia. Initially on Vapotherm, eventually required intubation. Patient continues to have a difficult time weaning. Reinitiating tube feeds. Problems addressed as follows: #Acute hypoxic respiratory failure # Severe sepsis #Multifocal community-acquired pneumonia # Acute COPD exacerbation ? Continue ventilator with PEEP 6, FiO2 80%, tidal volume 440, rate 22. - Bronchoscopy yesterday showed thick mucoid secretions. -Complete antibiotics tomorrow with cefepime - Continue methylprednisolone 40 mg twice daily IV - Pulm started sildenafil 10 mg 3 times daily -CRP 13.6 , Pro-Haile 0.124. - Repeat CBC, CMP, magnesium, CRP, procalcitonin ordered for the morning. - Continue Xopenex ipratropium every 4 hours and Pulmicort twice daily. -Finally had bowel movement today. Will continue docusate and senna twice daily. -Continue analgo-sedation with fentanyl and propofol. -Continue pantoprazole 40 mg IV twice daily. Monitoring for significant bleeding. Hemoglobin stable. No signs of anemia. #Possible HFpEF exacerbation # CAD, hypertension, hyperlipidemia - Coronary artery disease is likely stable. He ruled out for an UT. No plans for invasive left cardiac catheterization at this time. ? Holding Farxiga as it cannot be crushed per tube. Holding aspirin and Plavix due to blood in G-tube. Patient over 1yr out from his last cath #Type 2 diabetes ? ACHS glucose checks, high intensity sliding scale. Glucose 165 on morning labs. Continue insulin glargine 25 units nightly -Continue tube feed. Resume tube feeds today - BUN 37, creatinine 0.7. Potassium 4.9. Magnesium 1.9. Phosphorus 4.3 Constipation: Has not pooped in 5 days. KUB was obtained over weekend showing constipation. No free air. Abdomen soft. Active bowel sounds. Continue MiraLAX every 6 hours. Getting daily enemas. Tube feeds running. ICU/Critical care attestation This patient is critically ill with 31 minutes devoted solely to this patient managing life/organ supporting interventions that required physician assessment. This includes time spent making adjustments in ventilator settings, IV fluid administration, titration of pressors, adjustments of medications, discussion of patient with consultants and other care providers as well as updating patient and/or family (if patient by virtue of his/her condition is unable to participate in decision making). This does not include time spent performing separately billed procedures. Time is not concurrent with that of other providers. Full code DVT prophylaxis: Lovenox 40 mg subcu daily tube feeds
[2024-07-06] VITALS (64 sets, daily range): BP systolic 96–188; BP diastolic 54–142; PULSE 59–101; RESP 9–26; TEMP 36.7–37.7; O2SAT 83–96; BMI 25.4
--- NOTE | 2024-07-06 00:15 | XR_ITS ---
PROCEDURE INFORMATION: Exam: XR Chest Exam date and time: 07/06/2024 12:23 AM Age: 59 years old Clinical indication: Other: Hypoxic on vent; Additional info: Hypoxic on ventilator TECHNIQUE: Imaging protocol: Radiologic exam of the chest. Views: 1 view. COMPARISON: CR XR CHEST PORTABLE 07/05/2024 5:39 AM FINDINGS: Tubes, catheters and devices: Stable positioning of an endotracheal tube. Suboptimally visualized enteric tube. Lungs: Left lower lobe consolidation. Strandy bibasilar opacities. Pleural spaces: Possible small bilateral pleural effusions. No pneumothorax. Heart/Mediastinum: Grossly unchanged cardiomediastinal contours. Bones/joints: No acute findings. IMPRESSION: 1. Lines and tubes as above. 2. Left lower lobe consolidation and bibasilar strandy opacities, which may represent atelectasis, infection or pulmonary edema in the acute setting. 3. Possible small bilateral pleural effusions.
[2024-07-06 00:30] LABS: POC Glucose,Bedside 125 (70-110)
--- NOTE | 2024-07-06 00:34 | PC.NURSE ---
RT and nurse to bedside. Pt sats low 80s with an occurence of dropping to 75%. Provider came to bedside, stated pt was not tolerating pressure control nor light sedation. Verbal order from provider at bedside to increase sedation. RT switched pt to volume control. Sats back up to 88%.
[2024-07-06] MEDS: CEFEPIME HCL 2 GM in 0.9 % SODIUM CHLORIDE 100 ML IV (01:01)
[2024-07-06] MEDS: propofoL 100 ML 23.28 MG IV (01:50)
[2024-07-06] MEDS: FENTANYL CITRATE/PF 1,000 MCG in 0.9 % SODIUM CHLORIDE 80 ML 10 MCG IV (03:34)
[2024-07-06 05:48] LABS: POC Glucose,Bedside 149 (70-110)
[2024-07-06] MEDS: propofoL 100 ML 17.46 MG IV (05:49)
--- NOTE | 2024-07-06 06:00 | XR_ITS ---
PROCEDURE INFORMATION: Exam: XR Chest Exam date and time: 07/06/2024 6:02 AM Age: 59 years old Clinical indication: Other: Pneumonia mechanical ventilation TECHNIQUE: Imaging protocol: Radiologic exam of the chest. Views: 1 view. COMPARISON: CR XR CHEST PORTABLE 07/06/2024 12:23 AM FINDINGS: Tubes, catheters and devices: Enteric tube traverses midline, catheter tip and side fenestration is outside the field of view. Endotracheal tube projects 6.1 cm from the nano. Lungs: Mild increase in retrocardiac airspace opacification. Pleural spaces: Mild increase in blunting of the left costophrenic angle. Heart/Mediastinum: Unremarkable. No cardiomegaly. Vasculature: Atherosclerotic disease of the aortic arch. Bones/joints: No acute change of the visualized osseous structures. IMPRESSION: 1. Medical devices as above. 2. Worsening pneumonia and parapneumonic effusion at the left lung base.
[2024-07-06 06:20] LABS: Alanine Aminotransferase 24 U/L (12-78); Alkaline Phosphatase 75 U/L (38-126); Aspartate Amino Transferase 26 U/L (17-59); Bilirubin,Total 1.2 mg/dl (0.2-1.3); Blood Urea Nitrogen 35 mg/dl (9-20); Calcium 9.1 mg/dl (8.4-10.2); Chloride 99 mmol/L (98-107); Creatinine Clearance Estimated 162 mL/min (50-200); Estimated Glomerular Filt Rate 138 ml/min (>60); GFR (African American) 167 ML/MIN (>60); Glucose 171 mg/dl (74-100); Potassium 4.2 mmoL/L (3.5-5.1); Sodium 136 mmol/L (136-145); Total Protein,Serum 6.3 g/dl (6.3-8.2)
[2024-07-06 06:21] LABS: Albumin Level 3.4 g/dl (3.5-5.0); Albumin/Globulin Ratio 1.2 (1.1-1.8); Anion Gap 11.2 mEq/L (5-15); Carbon Dioxide 30 mmol/L (22.0-30.0); Globulin 2.9 g/dL (1.3-3.2)
[2024-07-06] MEDS: LEVALBUTEROL 1.25MG/3ML NEB 1.25 MG IH ×4 (06:25→23:16)
[2024-07-06] MEDS: BUDESONIDE 0.5MG/2ML NEB 0.5 MG IH ×2 (06:25→17:19)
[2024-07-06] MEDS: IPRATROPIUM BROMIDE 0.5 MG/2.5ML SOLUTION IH ×4 (06:25→23:16)
[2024-07-06] MEDS: ACETYLCYSTEINE 20% 4ML VIAL 2 ML IH ×2 (06:27→17:19)
[2024-07-06 07:53] LABS: Basophils % 0.1 % (0.1-2.0); Eosinophils % 0.2 % (0.1-12.0); Hematocrit 45.6 % (42.0-52.0); Hemoglobin 14.1 g/dL (14.1-18.0); Lymphocytes % 7.6 % (10-50); Mean Corpuscular HGB Conc 30.9 g/dL (31.8-35.4); Mean Corpuscular Hemoglobin 28.6 pg (27.0-31.2); Mean Corpuscular Volume 92.5 fl (80-94); Mean Platelet Volume 11.8 fl (7.4-10.4); Monocytes % 7.9 % (1.7-9.3); Neutrophils # 10.5 K/mm3 (1.8-7.8); Neutrophils % 83.5 % (37.0-80.0); Platelet Count 271 K/mm3 (142-424); Red Blood Count 4.93 M/mm3 (4.60-6.20); Red Cell Distribution Width 15.6 % (11.5-17.5); White Blood Count 12.6 K/mm3 (4.8-10.8)
[2024-07-06 08:20] LABS: Chol/HDL Ratio 4.3 (1-3.5); Cholesterol 90 mg/dl (140-200); HDL Cholesterol 21 mg/dl (40-60); Triglycerides 136 mg/dl (30-150); VLDL Cholesterol 27 mg/dL (0-40)
[2024-07-06 08:30] LABS: Direct LDL Cholesterol 48.16 mg/dL (100-129)
[2024-07-06] MEDS: ENOXAPARIN 40MG/0.4ML SYRINGE 40 MG SUBCUT (09:04)
[2024-07-06] MEDS: guaiFENesin 200MG/10ML SYRUP UDC 200 MG PO (09:04)
[2024-07-06] MEDS: METHYLPREDNISOLONE SOD SUCC 40MG VIAL 40 MG IV ×2 (09:04→20:47)
[2024-07-06] MEDS: PANTOPRAZOLE 40MG VIAL 40 MG IV ×2 (09:04→20:47)
[2024-07-06] MEDS: SODIUM CHLORIDE 0.9% 10ML VIAL 10 ML IV ×2 (09:04→20:47)
[2024-07-06] MEDS: SILDENAFIL 20 MG 0.5 EACH PO ×2 (09:05→13:21)
[2024-07-06] MEDS: POLYETHYLENE GLYCOL 3350 17 GM PACKET G-TUBE (09:35)
--- NOTE | 2024-07-06 09:50 | P.PN_ITS ---
Subjective *Date: 07/06/24 *Time: 11:52 Interval history: Acute respiratory events leading to desaturations overnight. Improved Pulmonology Exam Inpatient Vital signs and Labs for Last 24 Hours: Temp Pulse Resp BP Pulse Ox O2 Del Method O2 Flow Rate 98.4 F 65 24 104/61 L 94 L Mechanical Ventilation 70 07/06/24 08:00 07/06/24 08:00 07/06/24 08:00 07/06/24 08:00 07/06/24 08:00 07/06/24 08:00 07/03/24 11:00 FiO2 80 07/06/24 08:00 Laboratory Results - last 24 hr 07/05/24 11:51: POC Glucose 101 07/05/24 15:12: Specimen Source Left radial, O2 % 80, ABG pH 7.38, ABG pCO2 57.7 H, ABG pO2 62.5 L, ABG HCO3 33.6 H, ABG Total CO2 35.4 H, ABG O2 Saturation 91, ABG Base Excess 8.5 H, Ben Test acceptable, PEEP 10/5 07/05/24 17:31: POC Glucose 142 H 07/05/24 20:26: POC Glucose 123 H 07/05/24 23:38: POC Glucose 125 H 07/06/24 05:26: WBC 12.6 H, RBC 4.93, Hgb 14.1, Hct 45.6, MCV 92.5, MCH 28.6, MCHC 30.9 L, RDW 15.6, Plt Count 271, MPV 11.8 H, Neut % (Auto) 83.5 H, Lymph % (Auto) 7.6 L, [place] % (Auto) 7.9, Eos % (Auto) 0.2, Baso % (Auto) 0.1, Neut # (Auto) 10.5 H, Lymph # (Auto) 1.0, [place] # (Auto) 1.0, Eos # (Auto) 0.0, Baso # (Auto) 0.0, Sodium 136, Potassium 4.2, Chloride 99, Carbon Dioxide 30, Anion Gap 11.2, BUN 35 H, Creatinine 0.60 L, Estimated Creat Clear 162, Estimated GFR 138, Est GFR ( Amer) 167, Glucose 171 H, Calcium 9.1, Total Bilirubin 1.2, AST 26 D, ALT 24, Alkaline Phosphatase 75, Total Protein 6.3, Albumin 3.4 L, Globulin 2.9, Albumin/Globulin Ratio 1.2, Triglycerides 136, Cholesterol 90 L, L DL Cholesterol Direct 48.16 L, VLDL Cholesterol 27, HDL Cholesterol 21 L, Cholesterol/HDL Ratio 4.3 H 07/06/24 05:39: POC Glucose 149 H I & O for Labs for Last 24 Hours: Intake & Output 07/03/24 07/04/24 07/05/24 07/06/24 23:59 23:59 23:59 23:59 Intake Total 1809.194 / 1809.194 740.768 / 740.768 592.743 / 592.743 262.723 / 262.723 Output Total 1930 / 2054 1450 / 1900 1475 / 1600 425 / 425 Balance -120.806 / -245.806 -709.232 / -1159.232 -882.257 / -1007.257 -162.277 / -162.277 Weight 208 lb 14.4 oz 205 lb 1.6 oz 205 lb 9.6 oz 188 lb 5 oz Microbiology Reports for the Last 24 Hours: Microbiology 07/04/24 15:00 Bronchial Washings - Left Lower Lobe Gram Stain - Final Constitutional: Present severe distress Comment:: Intubated and Sedated Head: Present normocephalic and atraumatic Neck: Present normal inspection and trachea midline Respiratory: Present patient mechanically ventilated, prolonged expiratory phase and rhonchi Cardiac: Present S1/S2 and Tachycardia GI: Present soft; Absent distention or tenderness Skin: Present intact; Absent cyanosis Neuro: Absent alert, awake or oriented x 3 Comment:: Intubated and sedated Extremities: Present normal inspection; Absent clubbing or cyanosis Psychiatric: Present unable to assess Assessment and Plan *Assessment and plan (1) Acute exacerbation of chronic obstructive pulmonary disease (COPD): Status: Acute Category: Medical Code(s): J44.1 - Chronic obstructive pulmonary disease with (acute) exacerbation (2) Acute respiratory failure with hypoxia: Status: Acute Category: Medical Code(s): J96.01 - Acute respiratory failure with hypoxia (3) Community acquired pneumonia: Status: Acute Qualifiers: Laterality: unspecified laterality Qualified Code(s): J18.9 - Pneumonia , unspecified organism Category: Medical Code(s): J18.9 - Pneumonia, unspecified organism Plan Mr. Carmona is a 59-year-old male greater than [id number] smoking history, COPD, sleep apnea previously refused CPAP therapy presented to the ER with worsening respiratory distress and pulmonary was called for further evaluation and management. CTA upon admission suboptimal timing, no obvious central pulmonary embolism but right lower lobe airspace disease and consolidative changes noted. AFebrile. Hemodynamically stable. Currently receicing cefepime azithromycin and steroids and nebulization therapies. On initial examination severe respiratory distress. Oxygen desaturation noted with high flow nasal cannula 40 L 100%, escalated to BiPAP therapy with saturations maintained at 89% and above. Mini respiratory viral PCR panel negative lower extremity venous Doppler negati ve for DVT. Echo continued to show RV dilation and reduced RV function since 2022 likely secondary to uncontrolled sleep apnea and severe COPD. No Doppler evidence of interatrial shunt Nasal MRSA PCR negative. Sputum prelim gram-positive diplococci. CT PE protocol 07/04/2024 no evidence of pulmonary embolism. Clear lung henry with no effusions. Left lower lobe collapse. Status post bronchoscopy 07/04/2024 thick tenacious mucoid secretions from the left lower lobe suction. Airway is otherwise clear. Interval update: Acute respiratory event overnight leading to desaturation to 75% needing bag ventilation. Saturations improved. Currently on room control. Will proceed with SBT. Hemodynamically stable. Afebrile. Chest relatively stable. Concerning worsening for left lower lobe atelectasis. Continue to receive sildenafil 10 mg 3 times daily. Plan: Continue propofol and fentanyl for sedation Continue mechanical ventilatory support, currently on volume assist-control rate of 24 PEEP of 5 tidal volume of 400 FiO2 of 80%. Wean sedation and perform SBT. Continue sildenafil 10 mg 3 times daily Completed 7-day course of cefepime. Continue Xopenex and ipratropium every 6 hours along with Pulmicort every 12 scheduled Continue methylprednisolone 40 mg twice daily IV Hemodynamically stable. MAP greater than 70. Hold tube feed - Continue mechanical ventilatory support - Continue AnalgoSedation with Propofol and Fentanyl with CPOT gal less than or euqal to 2 and RASS goal of to 2 (No need for deep sedation) - VAP bundle Recommend elevate head of the bed at 30 to 45 degrees Recommend oral care with chlorhexidne Recommend GI ulcer prophylaxis - Famotidine 20mg IV BID Recommend chemical DVT prophylaxis Total critical care time spent on this patient is 35 minutes managing acute hypoxic respiratory failure needing mechanical ventilation. This time spent include reviewing test results including interpreting chest x-rays, labs and optimizing the ventilator settings,formulating plan of care, discussing the plan of care with the team and the nursing staff.
[2024-07-06 11:58] LABS: POC Glucose,Bedside 128 (70-110)
[2024-07-06] MEDS: FUROSEMIDE 40MG/4ML VIAL 40 MG IV (13:20)
--- NOTE | 2024-07-06 14:25 | PC.NURSE ---
Patient extubated at 1415 to vapotherm 40L 100%
--- NOTE | 2024-07-06 14:37 | PC.NURSE ---
Pt. was extubated at 1415 and placed on a vapotherm. Initial settings 40L , 100% Fi02
--- NOTE | 2024-07-06 15:06 | PC.NURSE ---
Patient alert and oriented times 4 post extubation. Lung sounds diminished, VS stable. Patient initially on [id number]% then turned down by dr. rand to [id number]%. Patient oxygen saturation staying 84%, respiratory called and patient put to [id number]%. Patient turned q2. Lasix given, patient diuresing well.
--- NOTE | 2024-07-06 17:09 | PC.NURSE ---
pt O2 sats down to 83-84% on vapotherm set at 30L and 100%. Resp. called and MD aware.
--- NOTE | 2024-07-06 17:14 | PC.NURSE ---
RT at bedside. pt setting changed to 40L and 100%. pt O2 sat at 87% at this time.
[2024-07-06 17:37] LABS: POC Glucose,Bedside 156 (70-110)
[2024-07-06] MEDS: INSULIN GLARGINE 100 UNITS/ML 3ML FLEXPEN 25 UNIT SUBCUT (20:47)
--- NOTE | 2024-07-06 21:36 | EXP.PN ---
Subjective *Date: 07/06/24 *Time: 21:36 Interval history: Patient was extubated today, quited fatigued. Requiring Vapotherm 40L 100%. No respiratory distress, airways at this time relatively clear. Exam Data for Last 24 hours Vital signs and Labs for Last 24 Hours: Temp Pulse Resp BP Pulse Ox O2 Del Method O2 Flow Rate 98.2 F 91 H 16 153/93 H 91 L Vapotherm 40 07/06/24 21:00 07/06/24 21:00 07/06/24 21:00 07/06/24 21:00 07/06/24 21:00 07/06/24 21:00 07/06/24 21:00 FiO2 100 07/06/24 20:00 Laboratory Results - last 24 hr 07/05/24 23:38: POC Glucose 125 H 07/06/24 05:26: WBC 12.6 H, RBC 4.93, Hgb 14.1, Hct 45.6, MCV 92.5, MCH 28.6, MCHC 30.9 L, RDW 15.6, Plt Count 271, MPV 11.8 H, Neut % (Auto) 83.5 H, Lymph % (Auto) 7.6 L, [place] % (Auto) 7.9, Eos % (Auto) 0.2, Baso % (Auto) 0.1, Neut # (Auto) 10.5 H, Lymph # (Auto) 1.0, [place] # (Auto) 1.0, Eos # (Auto) 0.0, Baso # (Auto) 0.0, Sodium 136, Potassium 4.2, Chloride 99, Carbon Dioxide 30, Anion Gap 11.2, BUN 35 H, Creatinine 0.60 L, Estimated Creat Clear 162, Estimated GFR 138, Est GFR ( Amer) 167, Glucose 171 H, Calcium 9.1, Total Bilirubin 1.2, AST 26 D, ALT 24, Alkaline Phosphatase 75, Total Protein 6.3, Albumin 3.4 L, Globulin 2.9, Albumin/Globulin Ratio 1.2, Triglycerides 136, Cholesterol 90 L, LDL Cholesterol Direct 48.16 L, VLDL Cholesterol 27, HDL Cholesterol 21 L, Cholesterol/HDL Ratio 4.3 H 07/06/24 05:39: POC Glucose 149 H 07/06/24 11:51: POC Glucose 128 H 07/06/24 17:29: POC Glucose 156 H I & O for Last 24 hours: Intake & Output 07/03/24 07/04/24 07/05/24 07/06/24 23:59 23:59 23:59 23:59 Intake Total 1809.194 / 1809.194 740.768 / 740.768 592.743 / 592.743 594.490 / 594.490 Output Total 193 / 2054 1450 / 1900 1475 / 1600 215 / 2150 Balance -120.806 / -245.806 -709.232 / -1159.232 -882.257 / -1007.257 -1555.510 / -1555.510 Weight 94.755 kg 93.032 kg 93.259 kg 85.417 kg Constitutional Constitutional: no acute distress and average body habitus *Routine HEENT Exam Head: Present normocephalic and atraumatic ENT: Present mucous membranes moist *Routine Neck Exam Neck: Present supple; Absent JVD *Routine Respiratory Exam Respiratory: Present patient mechanically ventilated and rhonchi *Routine Cardiovascular Exam Cardiovascular: Present RRR, Normal S1 and Normal S2; Absent murmur or gallop *Routine Abdominal Exam Abdominal: Present soft and normoactive bowel sounds; Absent organomegaly *Routine Extremities Exam Extremities: Present pulses intact; Absent cyanosis, clubbing or edema *Routine Skin Exam Skin: Present intact *Routine Neurological Exam Neurological: Present altered mental status (Sedated on mechanical ventilation) Routine Psychiatric Exam Psychiatric: Present unable to assess Assessment and Plan *Assessment and plan (1) Severe sepsis: Status: Acute Category: Medical Code(s): A41.9 - Sepsis, unspecified organism; R65.20 - Severe sepsis without septic shock (2) Acute respiratory failure with hypoxia: Status: Acute Category: Medical Code(s): J96.01 - Acute respiratory failure with hypoxia (3) Acute exacerbation of chronic obstructive pulmonary disease (COPD): Status: Acute Category: Medical Code(s): J44.1 - Chronic obstructive pulmonary disease with (acute) exacerbation (4) Community acquired pneumonia: Status: Acute Qualifiers: Laterality: unspecified laterality Qualified Code(s): J18.9 - Pneumonia, unspecified organism Category: Medical Code(s): J18.9 - Pneumonia, unspecified organism (5) Diabetes mellitus: Status: Acute Qualifiers: Diabetes mellitus type: type 2 Diabetes mellitus shelter insulin use: without termite renewal inspector use Diabetes mellitus complication status: without complication Qualified Code(s): E11.9 - Type 2 diabetes mellitus without complications Category: Medical Code(s): E11.9 - Type 2 diabetes mellitus without complications (6) Polycythemia vera: Status: Acute Category: Medical Code(s): D45 - Polycythemia vera (7) Pulmonary emphysema: Status: Acute Qualifiers: Emphysema type: centrilobular Qualified Code(s): J43.2 - Centrilobular emphysema Category: Medical Code(s): J43.9 - Emphysema, unspecified (8) RVF (right ventricular failure): Status: Acute Category: Medical Code(s): I50.810 - Right heart failure, unspecified (9) CAD (coronary artery disease): Status: Acute Qualifiers: Coronary Disease-Associated Artery/Lesion type: [place] artery [place] vs. transplanted heart: [place] heart Associated angina: without angina Qualified Code(s): I25.10 - Atherosclerotic heart disease of [place] coronary artery without angina pectoris Category: Medical Code(s): I25.10 - Atherosclerotic heart disease of [place] coronary artery without angina pectoris (10) Hypertension: Status: Acute Qualifiers: Hypertension type: unspecified Qualified Code(s): I10 - Essential (primary) hypertension Category: Medical Code(s): I10 - Essential (primary) hypertension (11) HLD (hyperlipidemia): Status: Acute Qualifiers: Hyperlipidemia type: mixed hyperlipidemia Qualified Code(s): E78.2 - Mixed hyperlipidemia Category: Medical Code(s): E78.5 - Hyperlipidemia, unspecified Plan Daniel Kwan is a 59-year-old male with a medical history significant for COPD on 2 L, severe sleep apnea, CAD with stent, hypertension, hyperlipidemia, type 2 diabetes who presents with worsening shortness of breath. He states he has not been taking his medications for many weeks and then he became increasingly short of breath over the past 2 weeks. Denies chest pain. Workup in the ED significant for a compensated ABG, D-dimer 0.85, BNP 1160. CTA chest revealed multifocal pneumonia in bilateral lungs with no evidence of PE. CXR suggests possible volume overload versus pneumonia. Initially on Vapotherm, eventually required intubation. #Acute hypoxic respiratory failure # Severe sepsis #Multifocal community-acquired pneumonia # Acute COPD exacerbation - S/p extubation 07/06/24. However, requiring Vapotherm 40L 100%. Acute respiratory event overnight leading to desaturation to 75% needing bag ventilation. - Bronchoscopy 07/04/24 showed thick mucoid secretions. - Completed antibiotics tomorrow with cefepime. - Continue methylprednisolone 40 mg twice daily IV - Pulm started sildenafil 10 mg 3 times daily - Repeat CBC, CMP, magnesium, CRP, procalcitonin ordered for the morning. - Continue Xopenex ipratropium every 6 hours and Pulmicort twice daily, Mucomyst BID. - Continue bowel regimen with Miralax daily #Possible HFpEF exacerbation # CAD, hypertension, hyperlipidemia - Coronary artery disease is likely stable. He ruled out for an SD. No plans for invasive left cardiac catheterization at this time. ? Holding Farxiga as it cannot be crushed per tube. Holding aspirin and Plavix due to blood in G-tube. Patient over 1yr out from his last cath #Type 2 diabetes ? ACHS glucose checks, high intensity sliding scale. Glucose 165 on morning labs. Continue insulin glargine 25 units nightly ICU/Critical care attestation This patient is critically ill with 31 minutes devoted solely to this patient managing life/organ supporting interventions that required physician assessment. This includes time spent making adjustments in ventilator settings, IV fluid administration, titration of pressors, adjustments of medications, discussion of patient with consultants and other care providers as well as updating patient and/or family (if patient by virtue of his/her condition is unable to participate in decision making). This does not include time spent performing separately billed procedures. Time is not concurrent with that of other providers. Full code DVT prophylaxis: Lovenox 40 mg subcu daily
[2024-07-07] VITALS (39 sets, daily range): BP systolic 110–171; BP diastolic 71–113; PULSE 86–125; RESP 12–29; TEMP 35.9–37.1; O2SAT 81–100; BMI 25.1
[2024-07-07] MEDS: HYDRALAZINE 20MG/ML VIAL 10 MG IV (01:41)
[2024-07-07 01:55] LABS: POC Glucose,Bedside 165 (70-110)
--- NOTE | 2024-07-07 05:09 | PC.NURSE ---
Patient has had a good night. He is excited to hopefully get out of the bed soon as it is very uncomfortable and excited to hopefully have ice chips todays. He is AxO but his voice is very soft spoken and raspy. He has remained a q2 turn but he did refuse a couple of times cause he was comfortable where he was at. He has had no complaints. BP was on the higher side this shift. Provider is aware and placed PRN orders
[2024-07-07] MEDS: humaLOG 100 UNITS/ML 10ML VIAL (SSI) SUBCUT ×2 (05:39→17:29)
[2024-07-07 05:49] LABS: POC Glucose,Bedside 158 (70-110)
[2024-07-07 05:58] LABS: Basophils % 0.1 % (0.1-2.0); Eosinophils % 0.1 % (0.1-12.0); Hematocrit 48.4 % (42.0-52.0); Hemoglobin 15.1 g/dL (14.1-18.0); Lymphocytes # 0.9 K/mm3 (0.7-4.5); Lymphocytes % 5.6 % (10-50); Mean Corpuscular HGB Conc 31.2 g/dL (31.8-35.4); Mean Corpuscular Hemoglobin 28.4 pg (27.0-31.2); Mean Corpuscular Volume 91.1 fl (80-94); Mean Platelet Volume 11.2 fl (7.4-10.4); Monocytes % 6.1 % (1.7-9.3); Neutrophils # 14.4 K/mm3 (1.8-7.8); Neutrophils % 87.4 % (37.0-80.0); Platelet Count 328 K/mm3 (142-424); Red Blood Count 5.31 M/mm3 (4.60-6.20); Red Cell Distribution Width 15.3 % (11.5-17.5); White Blood Count 16.5 K/mm3 (4.8-10.8)
--- NOTE | 2024-07-07 06:00 | XR_ITS ---
FINAL REPORT CLINICAL HISTORY: Pneumonia COMPARISON: 07/06/2024 FINDINGS: There has been interval extubation and EGD removal when compared to the prior film of 07/06/2024. The small left pleural effusion has improved. The right lung is clear. There is left base airspace disease that may represent pneumonia versus atelectasis. There is narrowing of the mid intrathoracic trachea, and correlation with recent CT shows no surrounding mass. 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 Heart size is normal. IMPRESSION: Interval extubation and EGD removal. Small left pleural effusion is improved, with residual left base airspace disease, pneumonia versus atelectasis. Narrowing of the mid intrathoracic trachea without surrounding mediastinal mass, may be accounted for by tracheal stenosis. Reviewed, Interpreted and Dictated by Alicia Amezcua MD Transcribed by Janie Bhagat Authenticated and [facility]
[2024-07-07 06:02] LABS: MANUAL DIFFERENTIAL MANUAL DIFFERENTIAL (MANUAL DIFF)
[2024-07-07 06:08] LABS: Alanine Aminotransferase 25 U/L (12-78); Albumin Level 3.8 g/dl (3.5-5.0); Albumin/Globulin Ratio 1.2 (1.1-1.8); Alkaline Phosphatase 80 U/L (38-126); Anion Gap 12.8 mEq/L (5-15); Aspartate Amino Transferase 32 U/L (17-59); Bilirubin,Total 1.6 mg/dl (0.2-1.3); Blood Urea Nitrogen 49 mg/dl (9-20); Calcium 9.4 mg/dl (8.4-10.2); Carbon Dioxide 31 mmol/L (22.0-30.0); Chloride 101 mmol/L (98-107); Creatinine Clearance Estimated 160 mL/min (50-200); Estimated Glomerular Filt Rate 138 ml/min (>60); GFR (African American) 167 ML/MIN (>60); Globulin 3.2 g/dL (1.3-3.2); Glucose 186 mg/dl (74-100); Magnesium 1.8 mg/dl (1.6-2.3); Potassium 3.8 mmoL/L (3.5-5.1); Sodium 141 mmol/L (136-145)
[2024-07-07] MEDS: LEVALBUTEROL 1.25MG/3ML NEB 1.25 MG IH ×3 (06:32→18:07)
[2024-07-07] MEDS: ACETYLCYSTEINE 20% 4ML VIAL 2 ML IH ×2 (06:32→18:07)
[2024-07-07] MEDS: IPRATROPIUM BROMIDE 0.5 MG/2.5ML SOLUTION IH ×3 (06:33→18:07)
[2024-07-07] MEDS: BUDESONIDE 0.5MG/2ML NEB 0.5 MG IH ×2 (06:33→18:07)
[2024-07-07 08:37] LABS: Lymphocytes % 7 % (10-50); Monocytes % 2 % (2-9); Neutrophils % 91 % (42-76); Total Cells Counted 100
--- NOTE | 2024-07-07 09:46 | EXP.PULM.PN ---
Subjective *Date: 07/07/24 *Time: 10:57 Interval history: Patient denies any new respiratory complaints. Pulmonology Exam Inpatient Vital signs and Labs for Last 24 Hours: Temp Pulse Resp BP Pulse Ox O2 Del Method O2 Flow Rate 98.2 F 100 H 12 133/97 H 93 L Vapotherm 40 07/07/24 09:00 07/07/24 09:00 07/07/24 09:00 07/07/24 09:00 07/07/24 09:00 07/07/24 09:00 07/07/24 09:00 FiO2 100 07/07/24 08:00 Laboratory Results - last 24 hr 07/06/24 11:51: POC Glucose 128 H 07/06/24 17:29: POC Glucose 156 H 07/07/24 00:32: POC Glucose 165 H 07/07/24 05:24: WBC 16.5 H D, RBC 5.31, Hgb 15.1, Hct 48.4, MCV 91.1, MCH 28.4, MCHC 31.2 L, RDW 15.3, Plt Count 328, MPV 11.2 H, Neut % (Auto) 87.4 H, Lymph % (Auto) 5.6 L, [place] % (Auto) 6.1, Eos % (Auto) 0.1, Baso % (Auto) 0.1, Neut # (Auto) 14.4 H, Lymph # (Auto) 0.9, [place] # (Auto) 1.0, Eos # (Auto) 0.0, Baso # (Auto) 0.0, Total Counted 100, Neutrophils % (Manual) 91 H, Lymphocytes % (Manual) 7 L, Monocytes % (Manual) 2, Sodium 141, Potassium 3.8, Chloride 101, Carbon Dioxide 31 H, Anion Gap 12.8, BUN 49 H D, Creatinine 0.60 L, Estimated Creat Clear 160, Estimated GFR 138, Est GFR ( Amer) 167, Glucose 186 H, Calcium 9.4, Magnesium 1.8, Total Bilirubin 1.6 H, AST 32, ALT 25, Alkaline Phosphatase 80, Total Protein 7.0, Albumin 3.8 D, Globulin 3.2, Albumin/Globulin Ratio 1.2 07/07/24 05:36: POC Glucose 158 H I & O for Labs for Last 24 Hours: Intake & Output 07/04/24 07/05/24 07/06/24 07/07/24 23:59 23:59 23:59 23:59 Intake Total 740.768 / 740.768 592.743 / 592.743 594.490 / 594.490 0 / 0 Output Total 1450 / 1900 1475 / 1600 2150 / 2450 625 / 625 Balance -709.232 / -1159.232 -882.257 / -1007.257 -1555.510 / -1855.510 -625 / -625 Weight 205 lb 1.6 oz 205 lb 9.6 oz 188 lb 5 oz 185 lb 9.6 oz Constitutional: Present severe distress Head: Present normocephalic and atraumatic ENT: Present normal exam, normal oropharynx and mucous membranes moist Neck: Present normal inspection and full ROM Respiratory: Present respiratory distress, rhonchi, diminished air movement and able to speak in complete sentences; Absent wheezes or crackles Cardiac: Present S1/S2, Tachycardia and radial pulses present GI: Present soft and distention; Absent tenderness or guarding Skin: Present intact; Absent cyanosis or jaundice Neuro: Present alert, awake and oriented x 3 Extremities: Present normal inspection; Absent clubbing or cyanosis Psychiatric: Present normal affect and cooperative Assessment and Plan *Assessment and plan (1) Acute exacerbation of chronic obstructive pulmonary disease (COPD): Status: Acute Category: Medical Code(s): J44.1 - Chronic obstructive pulmonary disease with (acute) exacerbation (2) Acute respiratory failure with hypoxia: Status: Acute Category: Medical Code(s): J96.01 - Acute respiratory failure with hypoxia (3) Community acquired pneumonia: Status: Acute Qualifiers: Laterality: unspecified laterality Qualified Code(s): J18.9 - Pneumonia, unspecified organism Category: Medical Code(s): J18.9 - Pneumonia, unspecified organism Plan Mr. Carmona is a 59-year-old male greater than [id number] smoking history, COPD, sleep apnea previously refused CPAP therapy presented to the ER with worsening respiratory distress and pulmonary was called for further evaluation and management. CTA upon admission suboptimal timing, no obvious central pulmonary embolism but right lower lobe airspace disease and consolidative changes noted. AFebrile. Hemodynamically stable. Currently receicing cefepime azithromycin and steroids and nebulization therapies. On initial examination severe respiratory distress. Oxygen desaturation noted with high flow nasal cannula 40 L 100%, escalated to BiPAP therapy with saturations maintained at 89% and above. Mini respiratory viral PCR panel negative lower extremity venous Doppler negative for DVT. Echo continued to show RV dilation and reduced RV function since 2022 likely secondary to uncontrolled sleep apnea and severe COPD. No Doppler evidence of interatrial shunt Nasal MRSA PCR negative. Sputum prelim gram-positive diplococci. CT PE protocol 07/04/2024 no evidence of pulmonary embolism. Clear lung henry with no effusions. Left lower lobe collapse. Status post bronchoscopy 07/04/2024 thick tenacious mucoid secretions from the left lower lobe suction. Airway is otherwise clear. Interval update: Continue to receive sildenafil 10 mg 3 times daily. Status post extubation to high flow nasal cannula. Chest x-ray concern for worsening left lower lobe atelectasis Plan: Continue high flow nasal oxygen supplementation, wean to 20 L 100%. Will continue to wean flow as tolerated. Lasix 40 mg IV once Continue DuoNebs every 6 hours and Pulmicort every 12 scheduled Continue sildenafil 10 mg 3 times daily scheduled Continue Mucomyst twice daily scheduled Thank you for involving pulmonary in this patient care. Will continue to follow.
[2024-07-07] MEDS: SILDENAFIL 20 MG 0.5 EACH PO (11:04)
[2024-07-07] MEDS: POLYETHYLENE GLYCOL 3350 17 GM PACKET G-TUBE (11:05)
[2024-07-07] MEDS: DAPAGLIFLOZIN PROPANEDIOL 10 MG TABLET PO (11:06)
[2024-07-07] MEDS: SENNOSIDES 8.6MG/DOCUSATE 50MG TABLET 1 TAB PO (11:06)
[2024-07-07] MEDS: FUROSEMIDE 40MG/4ML VIAL 40 MG IV (11:07)
[2024-07-07] MEDS: PANTOPRAZOLE 40MG VIAL 40 MG IV ×2 (11:08→20:01)
[2024-07-07] MEDS: ENOXAPARIN 40MG/0.4ML SYRINGE 40 MG SUBCUT (11:08)
[2024-07-07] MEDS: SODIUM CHLORIDE 0.9% 10ML VIAL 10 ML IV ×2 (11:08→20:01)
[2024-07-07 12:10] LABS: POC Glucose,Bedside 134 (70-110)
[2024-07-07 12:16] LABS: Platelet Estimate Normal; RBC Morphology Normal
[2024-07-07] MEDS: LACTATED RINGERS 1000ML 500 ML 100 ML IV (13:40)
--- NOTE | 2024-07-07 16:11 | ECG_ITS ---
APPROVED REPORT Exam: Resting ECG HR:113 bpm ECG Measurements Heart Rate 113 AXES [place] 144 P 72 QRSd 99 QRS 23 QT 295 T 57 QTc 362 Conclusion SINUS TACHYCARDIA WITH FREQUENT SUPRAVENTRICULAR PREMATURE COMPLEXES INFERIOR MYOCARDIAL INFARCTION , PROBABLY OLD [40+ ms Q WAVE AND/OR ST/T ABNORMALITY IN II/aVF] ABNORMAL ECG UNCONFIRMED REPORT Electronically signed by : Ortega Torres MD 07/08/2024 12:42:05
[2024-07-07 16:49] LABS: POC Glucose,Bedside 161 (70-110)
[2024-07-07] MEDS: ATORVASTATIN 40MG TABLET 40 MG PO (20:01)
[2024-07-07] MEDS: guaiFENesin 200MG/10ML SYRUP UDC 200 MG PO (20:01)
[2024-07-07] MEDS: INSULIN GLARGINE 100 UNITS/ML 3ML FLEXPEN 25 UNIT SUBCUT (20:02)
[2024-07-07 20:10] LABS: POC Glucose,Bedside 134 (70-110)
--- NOTE | 2024-07-07 22:04 | P.PN_ITS ---
Subjective *Date: 07/07/24 *Time: 22:04 Exam Data for Last 24 hours Vital signs and Labs for Last 24 Hours: Temp Pulse Resp BP Pulse Ox O2 Del Method O2 Flow Rate 98.8 F 105 H 14 123/76 96 Non-Rebreather 15 07/07/24 20:00 07/07/24 21:00 07/07/24 21:00 07/07/24 21:00 07/07/24 21:00 07/07/24 21:00 07/07/24 21:00 FiO2 100 07/07/24 19:54 Laboratory Results - last 24 hr 07/07/24 00:32: POC Glucose 165 H 07/07/24 05:24: WBC 16.5 H D, RBC 5.31, Hgb 15.1, Hct 48.4, MCV 91.1, MCH 28.4, MCHC 31.2 L, RDW 15.3, Plt Count 328, MPV 11.2 H, Neut % (Auto) 87.4 H, Lymph % (Auto) 5.6 L, [place] % (Auto) 6.1, Eos % (Auto) 0.1, Baso % (Auto) 0.1, Neut # (Auto) 14.4 H, Lymph # (Auto) 0.9, [place] # (Auto) 1.0, Eos # (Auto) 0.0, Baso # (Auto) 0.0, Total Counted 100, Neutrophils % (Manual) 91 H, Lymphocytes % (Manual) 7 L, Monocytes % (Manual) 2, Platelet Estimate Normal, RBC Morphology Normal, Sodium 141, Potassium 3.8, Chloride 101, Carbon Dioxide 31 H, Anion Gap 12.8, BUN 49 H D, Creatinine 0.60 L, Estimated Creat Clear 160, Estimated GFR 138, Est GFR ( Amer) 167, Glucose 186 H, Calcium 9.4, Magnesium 1.8, Total Bilirubin 1.6 H, AST 32, ALT 25, Alkaline Phosphatase 80, Total Protein 7.0, Albumin 3.8 D, Globulin 3.2, Albumin/Globulin Ratio 1.2 07/07/24 05:36: POC Glucose 158 H 07/07/24 12:01: POC Glucose 134 H 07/07/24 16:38: POC Glucose 161 H 07/07/24 19:54: POC Glucose 134 H I & O for Last 24 hours: Intake & Output 07/04/24 07/05/24 07/06/24 07/07/24 23:59 23:59 23:59 23:59 Intake Total 740.768 / 740.768 592.743 / 592.743 594.490 / 594.490 500 / 500 Output Total 1450 / 1900 1475 / 1600 2150 / 2450 2550 / 2550 Balance -709.232 / -1159.232 -882.257 / -1007.257 -1555.510 / -1855.510 -2050 / -2050 Weight 93.032 kg 93.259 kg 85.417 kg 84.187 kg Microbiology Reports for the Last 24 Hours: Microbiology 07/04/24 15:00 Bronchial Washings - Left Lower Lobe - Final 07/04/24 15:00 Bronchial Washings - Left Lower Lobe - Final 07/04/24 15:00 Bronchial Washings - Left Lower Lobe - Final 07/04/24 15:00 Bronchial Washings - Left Lower Lobe Acid Fast Bacilli Smear - Final 07/04/24 15:00 Bronchial Washings - Left Lower Lobe Gram Stain - Final 07/04/24 15:00 Bronchial Washings - Left Lower Lobe Bronchoalveolar Lavage Culture - Final No growth. Constitutional Constitutional: no acute distress and average body habitus *Routine HEENT Exam Head: Present normocephalic and atraumatic ENT: Present mucous membranes moist *Routine Neck Exam Neck: Present supple; Absent JVD *Routine Respiratory Exam Respiratory: Present patient mechanically ventilated and rhonchi *Routine Cardiovascular Exam Cardiovascular: Present RRR, Normal S1 and Normal S2; Absent murmur or gallop *Routine Abdominal Exam Abdominal: Present soft and normoactive bowel sounds; Absent organomegaly *Routine Extremities Exam Extremities: Present pulses intact; Absent cyanosis, clubbing or edema *Routine Skin Exam Skin: Present intact *Routine Neurological Exam Neurological: Present altered mental status (Sedated on mechanical ventilation) Routine Psychiatric Exam Psychiatric: Present unable to assess Assessment and Plan *Assessment and plan (1) Severe sepsis: Status: Acute Category: Medical Code(s): A41.9 - Sepsis, unspecified organism; R65.20 - Severe sepsis without septic shock (2) Acute respiratory failure with hypoxia: Status: Acute Category: Medical Code(s): J96.01 - Acute respiratory failure with hypoxia (3) Acute exacerbation of chronic obstructive pulmonary disease (COPD): Status: Acute Category: Medical Code(s): J44.1 - Chronic obstructive pulmonary disease with (acute) exacerbation (4) Community acquired pneumonia: Status: Acute Qualifiers: Laterality: unspecified laterality Qualified Code(s): J18.9 - Pneumonia, unspecified organism Category: Medical Code(s): J18.9 - Pneumonia, unspecified organism (5) Diabetes mellitus: Status: Acute Qualifiers: Diabetes mellitus type: type 2 Diabetes mellitus weighbridge operator insulin use: without weighbridge operator use Diabetes mellitus complication status: without complicati on Qualified Code(s): E11.9 - Type 2 diabetes mellitus without complications Category: Medical Code(s): E11.9 - Type 2 diabetes mellitus without complications (6) Polycythemia vera: Status: Acute Category: Medical Code(s): D45 - Polycythemia vera (7) Pulmonary emphysema: Status: Acute Qualifiers: Emphysema type: centrilobular Qualified Code(s): J43.2 - Centrilobular emphysema Category: Medical Code(s): J43.9 - Emphysema, unspecified (8) RVF (right ventricular failure): Status: Acute Category: Medical Code(s): I50.810 - Right heart failure, unspecified (9) CAD (coronary artery disease): Status: Acute Qualifiers: Coronary Disease-Associated Artery/Lesion type: [place] artery [place] vs. transplanted heart: [place] heart Associated angina: without angina Qualified Code(s): I25.10 - Atherosclerotic heart disease of [place] coronary artery without angina pectoris Category: Medical Code(s): I25.10 - Atherosclerotic heart disease of [place] coronary artery without angina pectoris (10) Hypertension: Status: Acute Qualifiers: Hypertension type: unspecified Qualified Code(s): I10 - Essential (primary) hypertension Category: Medical Code(s): I10 - Essential (primary) hypertension (11) HLD (hyperlipidemia): Status: Acute Qualifiers: Hyperlipidemia type: mixed hyperlipidemia Qualified Code(s): E78.2 - Mixed hyperlipidemia Category: Medical Code(s): E78.5 - Hyperlipidemia, unspecified Plan Daniel Kwan is a 59-year-old male with a medical history significant for COPD on 2 L, severe sleep apnea, CAD with stent, hypertension, hyperlipidemia, type 2 diabetes who presents with worsening shortness of breath. He states he has not been taking his medications for many weeks and then he became increasingly short of breath over the past 2 weeks. Denies chest pain. Workup in the ED s ignificant for a compensated ABG, D-dimer 0.85, BNP 1160. CTA chest revealed multifocal pneumonia in bilateral lungs with no evidence of PE. CXR suggests possible volume overload versus pneumonia. Initially on Vapotherm, eventually required intubation. #Acute hypoxic respiratory failure # Severe sepsis #Multifocal community-acquired pneumonia # Acute COPD exacerbation - S/p extubation 07/06/24. Weaned to 15L non-rebreather. Continue to wean as tolerated. - Bronchoscopy 07/04/24 showed thick mucoid secretions. - Completed antibiotics tomorrow with cefepime. - Transitioned to prednisone 40mg daily. - Pulm started sildenafil 10 mg 3 times daily - Repeat CBC, CMP, magnesium, CRP, procalcitonin ordered for the morning. - Continue Xopenex ipratropium every 6 hours and Pulmicort twice daily, Mucomyst BID. - Continue bowel regimen with Miralax daily. - Speech therapy, PT/OT as tolerated. #Possible HFpEF exacerbation # CAD, hypertension, hyperlipidemia - Coronary artery disease is likely stable. He ruled out for an CO. No plans for invasive left cardiac catheterization at this time. ? Holding Farxiga as it cannot be crushed per tube. Holding aspirin and Plavix due to blood in G-tube. Patient over 1yr out from his last cath #Type 2 diabetes ? ACHS glucose checks, high intensity sliding scale. Glucose 165 on morning labs. Continue insulin glargine 25 units nightly ICU/Critical care attestation This patient is critically ill with 31 minutes devoted solely to this patient managing life/organ supporting interventions that required physician assessment. This includes time spent making adjustments in ventilator settings, IV fluid administration, titration of pressors, adjustments of medications, discussion of patient with consultants and other care providers as well as updating patient and/or family (if patient by virtue of his/her condition is unable to participate in decision making). This does not include time spent performing separately billed procedures. Time is not concurrent with that of other providers. Full code DVT prophylaxis: Lovenox 40 mg subcu daily
--- NOTE | 2024-07-07 22:37 | PC.NURSE ---
He is A&Ox4. His speech is soft and somewhat difficult to hear. He was weaned to a non-rebreather from a non-rebreather and vapotherm at 1915. He has been suctioning himself and turning himself in bed. He refused a bath and stated he would like to wait until morning. Lung sounds diminished. Bowel sound hypoactive. He is voiding per f/c; urine is yellow, clear. He denies any pain. The skin on his legs is scaly. Between NSR and sinus tach on telemetry.
[2024-07-08] VITALS (37 sets, daily range): BP systolic 99–132; BP diastolic 58–84; PULSE 79–120; RESP 14–29; TEMP 36.6–37.2; O2SAT 85–97; BMI 25.4; BMI 24.3
[2024-07-08] MEDS: IPRATROPIUM BROMIDE 0.5 MG/2.5ML SOLUTION IH ×5 (00:06→23:47)
[2024-07-08] MEDS: LEVALBUTEROL 1.25MG/3ML NEB 1.25 MG IH ×5 (00:06→23:47)
--- NOTE | 2024-07-08 03:04 | PC.NURSE ---
No acute changes since previous assessment.
[2024-07-08 05:01] LABS: POC Glucose,Bedside 98 (70-110)
[2024-07-08] MEDS: ACETYLCYSTEINE 20% 4ML VIAL 2 ML IH ×2 (06:09→18:45)
[2024-07-08] MEDS: BUDESONIDE 0.5MG/2ML NEB 0.5 MG IH ×2 (06:09→18:45)
[2024-07-08] MEDS: predniSONE 20MG TAB 40 MG PO (07:58)
[2024-07-08] MEDS: ENOXAPARIN 40MG/0.4ML SYRINGE 40 MG SUBCUT (07:59)
[2024-07-08] MEDS: SODIUM CHLORIDE 0.9% 10ML VIAL 10 ML IV ×2 (07:59→20:46)
[2024-07-08] MEDS: PANTOPRAZOLE 40MG VIAL 40 MG IV ×2 (07:59→20:46)
[2024-07-08] MEDS: POLYETHYLENE GLYCOL 3350 17 GM PACKET G-TUBE (07:59)
[2024-07-08] MEDS: DAPAGLIFLOZIN PROPANEDIOL 10 MG TABLET PO (07:59)
[2024-07-08] MEDS: guaiFENesin 200MG/10ML SYRUP UDC 200 MG PO ×2 (07:59→20:46)
[2024-07-08 08:22] LABS: Basophils % 0.1 % (0.1-2.0); Eosinophils # 0.3 K/mm3 (0.0-0.4); Eosinophils % 1.4 % (0.1-12.0); Hematocrit 47.5 % (42.0-52.0); Hemoglobin 14.9 g/dL (14.1-18.0); Lymphocytes # 1.9 K/mm3 (0.7-4.5); Lymphocytes % 9.1 % (10-50); Mean Corpuscular HGB Conc 31.4 g/dL (31.8-35.4); Mean Corpuscular Hemoglobin 28.9 pg (27.0-31.2); Mean Corpuscular Volume 92.1 fl (80-94); Mean Platelet Volume 11.6 fl (7.4-10.4); Monocytes # 1.4 K/mm3 (0.1-1.0); Monocytes % 6.6 % (1.7-9.3); Neutrophils # 16.8 K/mm3 (1.8-7.8); Neutrophils % 82.1 % (37.0-80.0); Platelet Count 359 K/mm3 (142-424); Red Blood Count 5.16 M/mm3 (4.60-6.20); Red Cell Distribution Width 15.6 % (11.5-17.5); White Blood Count 20.5 K/mm3 (4.8-10.8)
[2024-07-08 08:27] LABS: Alanine Aminotransferase 26 U/L (12-78); Albumin Level 3.7 g/dl (3.5-5.0); Albumin/Globulin Ratio 1.1 (1.1-1.8); Alkaline Phosphatase 87 U/L (38-126); Anion Gap 12.6 mEq/L (5-15); Aspartate Amino Transferase 36 U/L (17-59); Bilirubin,Total 1.8 mg/dl (0.2-1.3); Blood Urea Nitrogen 51 mg/dl (9-20); Calcium 9.7 mg/dl (8.4-10.2); Carbon Dioxide 31 mmol/L (22.0-30.0); Chloride 98 mmol/L (98-107); Creatinine Clearance Estimated 162 mL/min (50-200); Estimated Glomerular Filt Rate 138 ml/min (>60); GFR (African American) 167 ML/MIN (>60); Globulin 3.3 g/dL (1.3-3.2); Glucose 102 mg/dl (74-100); Magnesium 1.8 mg/dl (1.6-2.3); Potassium 3.6 mmoL/L (3.5-5.1); Sodium 138 mmol/L (136-145)
[2024-07-08 08:32] LABS: MANUAL DIFFERENTIAL MANUAL DIFFERENTIAL (MANUAL DIFF)
--- NOTE | 2024-07-08 10:29 | HMH.SLDYSPHA ---
Speech & Language Evaluation Speech/Language Dysphagia Evaluation Start: 07/08/24 10:09 Freq: ONCE Status: Active Protocol: Document 07/08/24 10:09 [facility] (Rec: 07/08/24 10:29 [facility] laptop) Co-signed By [facility] Dysphagia Assess/Goals/Plan Assessment Date of Evaluation: 07/08/24 Evaluation Type Initial Certification Assessment/Problems post-extubation per MD order Does Patient Qualify for Service No Qualify/Failure Comment Based on clinical observations made throughout clinical bedside swallow evaluation, further skilled speech therapy services are not warranted at this time d/t no overt s/sx of aspiration and adequate mastication and manipulation of bolus. Recommendations PHYSICIAN CERTIFICATION: The specified therapy services are required, authorized, and reviewed every 30 days. Diet Recommendations Normal Liquid Type Recommendations Normal/Thin SL Swallow Guidelines Alt bite w/sip thru meal, Standard Aspiration Prec.,Eat at slow rate,Oral Care Education,Reflux precautions Dysphagia Swallow Precautions/Strategies Sitting Upright (90 deg),Small Bites and Sips,Alternate Liquids/Solids Plan Pt/Guardian verbally ack understanding Yes of dx/prognosis/goals G -code Required No Education Instructions provided INSTRUCTIONAL ASSISTANT discussed clinical observations made throughout bedside CSE, diet recommendations, and compensatory strategies with pt, nursing, and MD, all of which expressed understanding. Pt/Caregiver able to recall information Able to recall/restate Reinforcement needed No Speech & Language HPI History Present Illness Description of Patient Problem INSTRUCTIONAL ASSISTANT pulled the following information from pt's H&P and recent chest x-ray: Daniel Kwan is a 59-year-old male with a medical history significant for COPD on 2 L, severe sleep apnea, CAD with stent, hypertension, hyperlipidemia, type 2 diabetes who presents with worsening shortness of breath. He states he has not been taking his medications for many weeks and then he became increasingly short of breath over the past 2 weeks. Denies chest pain. Workup in the ED significant for a compensated ABG, D-dimer 0.85, BNP 1160. CTA chest revealed multifocal pneumonia in bilateral lungs with no evidence of PE. CXR suggests possible volume overload. On my evaluation of the patient, he is requiring Vapotherm 35 L FiO2 70%. Case discussed with ED provider and decision was made to admit patient for acute on chronic hypoxic respiratory failure secondary to community- acquired pneumonia, COPD exacerbation, and possible HFpEF exacerbation. Chest x-ray: There has been interval extubation and EGD removal when compared to the prior film of 07/06/2024 . The small left pleural effusion has improved. The right lung is clear. There is left base airspace disease that may represent pneumonia versus atelectasis. There is narrowing of the mid intrathoracic trachea, and correlation with recent CT shows no surrounding mass. 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 Heart size is normal. Pt was extubated on 07/06/24 at 1415. Pt/Caregiver Concerns No concerns prior to hospitalization. Pt does state that he has reflux. He states that he has done well with water post-extubation. Rehab Services Assessed Speech therapy Is this evaluation r/t stroke? No General Information General Current Food Consistancy NPO Dentition Good Dentition Oxygen Status Non-Rebreather Patient Orientation Person,Place,Time,Situation Ability to Follow Directions Excellent Communication Ability No Impairment Voice Voice Quality Breathy,Hoarse,Weak Dysphagia:Food Presentation Evaluation Food Type Pureed,Mechanical Soft,Regular ,Liquid,Pudding Dysphagia Evaluation Mechanical Soft Residual on tongue Food Behavior Response Dysphagia Evaluation Regular Food Residual on tongue Behavior Response Dysphagia Evaluation Summary A clinical bedside swallow evaluation was administered this morning with pt sitting upright in bed, utilizing non- rebreather, and with adequate dentition. Pt was extubated on 07/06/24 at 1415. Pt was A&O x4 and was observed to have hoarse vocal quality. Pt's baseline O2 sats ranged from 81-87%. Consistencies administered include ice chips , thin liquid (water) via cup and straw, pudding, puree ( applesauce), mechanical soft ( cookie), and regular (juliocesar cracker). All bolus presentations administered x2 to assess for fatigue and consistency. Pt exhibited no overt s/sx of aspiration on any consistency trialed. Pt had adequate labial seal on all consistencies trialed. Pt was observed to have lingual residue on mechanical soft and regular food trials, which were cleared with liquid wash. Pt demonstrated adequate mastication and manipulation of bolus on mechanical soft and regular food trials. INSTRUCTIONAL ASSISTANT recommends regular/thin liquid diet with compensatory strategies including sitting upright during/30-60 mins after meals, slow rate, small bites/sips, alternate bites/ sips, and extra sauces/gravy. Stroke Dysphagia Assessment PHYSICIAN CERTIFICATION: I certify the specified therapy services for Daniel Aniya are required, authorized, and reviewed every 30 days.
[2024-07-08] MEDS: LEVOFLOXACIN IV (11:19)
[2024-07-08] MEDS: DEXTROSE IV (11:19)
[2024-07-08] MEDS: SILDENAFIL 20 MG 0.5 EACH PO ×3 (11:19→20:45)
[2024-07-08 11:52] LABS: POC Glucose,Bedside 155 (70-110)
[2024-07-08 11:58] LABS: Eosinophils % 2 % (0-3); Lymphocytes % 9 % (10-50); Monocytes % 3 % (2-9); Neutrophils % 86 % (42-76); Platelet Estimate Normal; RBC Morphology Normal; Total Cells Counted 100
--- NOTE | 2024-07-08 12:50 | HMH.PTEV ---
Physical Therapy Evaluation Rehab PT IP Evaluation Start: 07/07/24 11:07 Freq: ONCE Status: Active Protocol: Document 07/08/24 12:45 [facility] (Rec: 07/08/24 12:50 [facility] [id number]) Subjective/History History History 59-year-old male with a medical history significant for COPD on 2 L, severe sleep apnea, CAD with stent, hypertension, hyperlipidemia, type 2 diabetes who presents with worsening shortness of breath. He has been hospitalized now for 12 days with severely limited activity . He reports he lives with his significant other, 2-3 steps to enter the home, and he is generally independent with all mobility at baseline. Subjective Subjective He reports feeling very weak in general, but would like to attempt OOB mobility this am. Rehab PT IP Eval Objective Appearance Patient Behavior Appropriate Patient Orientation Person,Place,Time Speech Pattern Clear Ambulation Patient Able to Ambulate Yes Ambulation Observation IP General Gait Pattern Observation Shuffling Step Ambulation Distance (feet) 3 Ambulation Assistive Device None Ambulation Ability Minimal x 1 (25% assist) Balance Ability to Arise Able, uses arms to help Sitting Balance Steady, safe Standing Balance Unsteady Dynamic Sitting Balance Ability Fair Dynamic Standing Balance Ability Poor Transfers Bed Transfer Ability Minimal x 1 (25% assist) Chair Transfer Ability Minimal x 1 (25% assist) Sit to Stand Bed Transfer Ability Minimal x 1 (25% assist) Sit to Stand Chair Transfer Ability Minimal x 1 (25% assist) ROM All Extremities PT ROM Status WFL MMT All Extremities PT MMT WFL Abnormal MMT Grade grossly 3/5 at least Rehab PT IP prob,goals,plan Problems Date of Evaluation: 07/08/24 PT IP Problems Bed Mobility,Transfers,Gait, Self care Rehab Potential Rehab Potential Good Plan PT Intervention Plan Bed Mobility,Transfers,Gait, Self care,Therapeutic Exercise PT Plan Frequency Daily Duration LOS Discharge Goals Bed Transfer Ability Contact Guard/Hand Hold Sit to Stand Chair Transfer Ability Contact Guard/Hand Hold Ambulation Assistive Device Rolling Walker Ambulation Distance (feet) 20 Discharge Plan PT Discharge Plan Pt is currently most appropriate for rehab placement once medically stable due to significantly reduced endurance to all activity, decreased strength, decreased transfer ability and decreased ambulation ability. Skilled therapy is indicated to address all of these concerns in order to aid pt return top PLOF. Eval Complexity Eval Charge Codes 02141 - High Complexity PHYSICIAN CERTIFICATION: I certify the specified therapy services for Daniel Aniya are required, authorized, and reviewed every 30 days.
[2024-07-08] MEDS: BISACODYL 10MG SUPP 10 MG RC (13:20)
--- NOTE | 2024-07-08 13:31 | PC.WOUNDNOTE ---
coccyx reddened, new dressing applied
--- NOTE | 2024-07-08 13:32 | PC.WOUNDNOTE ---
bruise to left hip, pressure relieving device removed and reapplied
--- NOTE | 2024-07-08 15:34 | PC.NURSE ---
Pt states that he feels better today. lung sounds are more easily audible and clear sounding than previous shifts with this RN. pt is a/o x 4, he was able to work with both PT and speech this shift. PT states that pt is able to stand with minimal assistance, which pt was able to do with help from this RN while getting up to the BSC to have a large BM. pt has unsteady gait and needs moderate assistance. Speech cleared pt to have thin liquids and a regular (diabetic) diet. while eating lunch pt had a period of low o2 sats r/t removing the venti mask for bites of food. pt was transitioned back to a NRB by RT. sats on NRB are currently 95%. pt lying in bed resting, respirations even and unlabored. pt voiding per quan catheter, urine is orangish in color. pt skin is extremely dry and scaly, pt baseline per family/self
--- NOTE | 2024-07-08 18:39 | P.PN_ITS ---
Subjective *Date: 07/09/24 *Time: 14:44 Interval history: Patient continues to improve, weaned to Venturi mask 15 L. No respiratory distress. States he feels much better, tolerating diet. Exam Data for Last 24 hours Vital signs and Labs for Last 24 Hours: Temp Pulse Resp BP Pulse Ox O2 Del Method O2 Flow Rate 98.9 F 104 H 24 99/72 L 95 Non-Rebreather 15 07/08/24 16:00 07/08/24 18:00 07/08/24 18:00 07/08/24 18:00 07/08/24 18:00 07/08/24 18:00 07/08/24 11:28 FiO2 100 07/08/24 16:00 Laboratory Results - last 24 hr 07/07/24 19:54: POC Glucose 134 H 07/08/24 04:54: POC Glucose 98 07/08/24 06:00: WBC 20.5 H*, RBC 5.16, Hgb 14.9, Hct 47.5, MCV 92.1, MCH 28.9, MCHC 31.4 L, RDW 15.6, Plt Count 359, MPV 11.6 H, Neut % (Auto) 82.1 H, Lymph % (Auto) 9.1 L, [place] % (Auto) 6.6, Eos % (Auto) 1.4, Baso % (Auto) 0.1, Neut # (Auto) 16.8 H, Lymph # (Auto) 1.9, [place] # (Auto) 1.4 H, Eos # (Auto) 0.3, Baso # (Auto) 0.0, Total Counted 100, Neutrophils % (Manual) 86 H, Lymphocytes % (Manual) 9 L, Monocytes % (Manual) 3, Eosinophils % (Manual) 2, Platelet Estimate Normal, RBC Morphology Normal, Sodium 138, Potassium 3.6, Chloride 98, Carbon Dioxide 31 H, Anion Gap 12.6, BUN 51 H, Creatinine 0.60 L, Estimated Creat Clear 162, Estimated GFR 138, Est GFR ( Amer) 167, Glucose 102 H, Calcium 9.7, Magnesium 1.8, Total Bilirubin 1.8 H, AST 36, ALT 26, Alkaline Phosphatase 87, Total Protein 7.0, Albumin 3.7, Globulin 3.3 H, Albumin/Globulin Ratio 1.1 07/08/24 11:44: POC Glucose 155 H I & O for Last 24 hours: Intake & Output 07/05/24 07/06/24 07/07/24 07/08/24 23:59 23:59 23:59 23:59 Intake Total 592.743 / 592.743 594.490 / 594.490 500 / 500 485 / 485 Output Total 1475 / 1600 2150 / 2450 2625 / 2625 1215 / 1215 Balance -882.257 / -1007.257 -1555.510 / -1855.510 -2125 / -2125 -730 / -730 Weight 93.259 kg 85.417 kg 84.187 kg 81.7 kg Constitutional Constitutional: no acute distress and average body habitus *Routine HEENT Exam Head: Present normocephalic and atraumatic ENT: Present mucous membranes moist *Routine Neck Exam Neck: Present supple; Absent JVD *Routine Respiratory Exam Respiratory: Present rhonchi *Routine Cardiovascular Exam Cardiovascular: Present RRR, Normal S1 and Normal S2; Absent murmur or gallop *Routine Abdominal Exam Abdominal: Present soft and normoactive bowel sounds; Absent organomegaly *Routine Extremities Exam Extremities: Present pulses intact; Absent cyanosis, clubbing or edema *Routine Skin Exam Skin: Present intact *Routine Neurological Exam Neurological: Present altered mental status (Sedated on mechanical ventilation) Routine Psychiatric Exam Psychiatric: Present unable to assess Assessment and Plan *Assessment and plan (1) Severe sepsis: Status: Acute Category: Medical Code(s): A41.9 - Sepsis, unspecified organism; R65.20 - Severe sepsis without septic shock (2) Acute respiratory failure with hypoxia: Status: Acute Category: Medical Code(s): J96.01 - Acute respiratory failure with hypoxia (3) Acute exacerbation of chronic obstructive pulmonary disease (COPD): Status: Acute Category: Medical Code(s): J44.1 - Chronic obstructive pulmonary disease with (acute) exacerbation (4) Community acquired pneumonia: Status: Acute Qualifiers: Laterality: unspecified laterality Qualified Code(s): J18.9 - Pneumonia, unspecified organism Category: Medical Code(s): J18.9 - Pneumonia, unspecified organism (5) Diabetes mellitus: Status: Acute Qualifiers: Diabetes mellitus complication status: without complication Diabetes mellitus lead die molder insulin use: without lead die molder use Diabetes mellitus type: type 2 Qualified Code(s): E11.9 - Type 2 diabetes mellitus without complications Category: Medical Code(s): E11.9 - Type 2 diabetes mellitus without complications (6) Polycythemia vera: Status: Acute Category: Medical Code(s): D45 - Polycythemia vera (7) Pulmonary emphysema: Status: Acute Qualifiers: Emphysema type: centrilobular Qualified Code(s): J43.2 - Centrilobular emphysema Category: Medical Code(s): J43.9 - Emphysema, unspecified (8) RVF (right ventricular failure): Status: Acute Category: Medical Code(s): I50.810 - Right heart failure, unspecified (9) CAD (coronary artery disease): Status: Acute Qualifiers: Associated angina: without angina Coronary Disease-Associated Artery/Lesion type: [place] artery [place] vs. transplanted heart: [place] heart Qualified Code(s): I25.10 - Atherosclerotic heart disease of [place] coronary artery without angina pectoris Category: Medical Code(s): I25.10 - Atherosclerotic heart disease of [place] coronary artery without angina pectoris (10) Hypertension: Status: Acute Qualifiers: Hypertension type: unspecified Qualified Code(s): I10 - Essential (primary) hypertension Category: Medical Code(s): I10 - Essential (primary) hypertension (11) HLD (hyperlipidemia): Status: Acute Qualifiers: Hyperlipidemia type: mixed hyperlipidemia Qualified Code(s): E78.2 - Mixed hyperlipidemia Category: Medical Code(s): E78.5 - Hyperlipidemia, unspecified Plan Daniel Kwan is a 59-year-old male with a medical history significant for COPD on 2 L, severe sleep apnea, CAD with stent, hypertension, hyperlipidemia, type 2 diabetes who presents with worsening shortness of breath. He states he has not been taking his medications for many weeks and then he became increasingly short of breath over the past 2 weeks. Denies chest pain. Workup in the ED significant for a compensated ABG, D-dimer 0.85, BNP 1160. CTA chest revealed multifocal pneumonia in bilateral lungs with no evidence of PE. CXR suggests possible volume overload versus pneumonia. Initially on Vapotherm, eventually required intubation. #Acute hypoxic respiratory failure #Severe sepsis #Multifocal community-acquired pneumonia #Acute COPD exacerbation - S/p extubation 07/06/24. Weaned to 15L Venturi mask. Continue to wean as tolerated. - Bronchoscopy 07/04/24 showed thick mucoid secretions. - Pulmonology following, continue prednisone 40mg daily, sildenafil 10 mg 3 times daily, Xopenex ipratropium every 6 hours and Pulmicort twice daily, Mucomyst BID. - Increased haziness in the left lower lobe on CXR. WBC uptrending to 20.5. Started levofloxacin day 1 to cover for possible VAP/HAP. - Continue bowel regimen with Miralax daily. - Speech therapy consulted, cleared for regular diet. ? PT/OT consulted, recommending rehab placement at this time #Possible HFpEF exacerbation # CAD, hypertension, hyperlipidemia - Coronary artery disease is likely stable. He ruled out for an CA. No plans for invasive left cardiac catheterization at this time. ? Holding Farxiga as it cannot be crushed per tube. Holding aspirin and Plavix due to blood in G-tube. Patient over 1yr out from his last cath #Type 2 diabetes ? ACHS glucose checks, high intensity sliding scale. Glucose 165 on morning labs. Continue insulin glargine 25 units nightly Full code DVT prophylaxis: Lovenox 40 mg subcu daily
[2024-07-08 18:59] LABS: POC Glucose,Bedside 142 (70-110)
[2024-07-08] MEDS: ATORVASTATIN 40MG TABLET 40 MG PO (20:46)
[2024-07-08] MEDS: INSULIN GLARGINE 100 UNITS/ML 3ML FLEXPEN 25 UNIT SUBCUT (20:47)
[2024-07-08 22:02] LABS: POC Glucose,Bedside 121 (70-110)
[2024-07-08 23:57] LABS: POC Glucose,Bedside 101 (70-110)
[2024-07-09] VITALS (30 sets, daily range): BP systolic 96–122; BP diastolic 44–88; PULSE 61–111; RESP 16–29; TEMP 36.5–36.8; O2SAT 90–96; BMI 24.6
[2024-07-09 06:09] LABS: POC Glucose,Bedside 88 (70-110)
[2024-07-09] MEDS: LEVALBUTEROL 1.25MG/3ML NEB 1.25 MG IH ×3 (06:14→18:49)
[2024-07-09] MEDS: BUDESONIDE 0.5MG/2ML NEB 0.5 MG IH ×2 (06:14→18:49)
[2024-07-09] MEDS: ACETYLCYSTEINE 20% 4ML VIAL 2 ML IH ×2 (06:15→18:49)
[2024-07-09] MEDS: IPRATROPIUM BROMIDE 0.5 MG/2.5ML SOLUTION IH ×3 (06:15→18:49)
--- NOTE | 2024-07-09 06:55 | PC.NURSE ---
Patient had a good night. He tolerated the venti mask well with no complaints. no issues over night
[2024-07-09 08:10] LABS: Basophils % 0.2 % (0.1-2.0); Eosinophils # 0.3 K/mm3 (0.0-0.4); Eosinophils % 1.8 % (0.1-12.0); Hematocrit 44.2 % (42.0-52.0); Hemoglobin 13.8 g/dL (14.1-18.0); Lymphocytes # 2.4 K/mm3 (0.7-4.5); Lymphocytes % 13.7 % (10-50); Mean Corpuscular HGB Conc 31.2 g/dL (31.8-35.4); Mean Corpuscular Hemoglobin 29.1 pg (27.0-31.2); Mean Corpuscular Volume 93.2 fl (80-94); Mean Platelet Volume 10.9 fl (7.4-10.4); Monocytes # 0.9 K/mm3 (0.1-1.0); Monocytes % 5.3 % (1.7-9.3); Neutrophils # 13.7 K/mm3 (1.8-7.8); Neutrophils % 78.3 % (37.0-80.0); Platelet Count 373 K/mm3 (142-424); Red Blood Count 4.74 M/mm3 (4.60-6.20); Red Cell Distribution Width 15.5 % (11.5-17.5); White Blood Count 17.5 K/mm3 (4.8-10.8)
[2024-07-09 08:24] LABS: MANUAL DIFFERENTIAL MANUAL DIFFERENTIAL (MANUAL DIFF)
[2024-07-09 08:26] LABS: Alanine Aminotransferase 31 U/L (12-78); Albumin Level 3.7 g/dl (3.5-5.0); Albumin/Globulin Ratio 1.1 (1.1-1.8); Alkaline Phosphatase 77 U/L (38-126); Anion Gap 10.5 mEq/L (5-15); Aspartate Amino Transferase 43 U/L (17-59); Bilirubin,Total 1.4 mg/dl (0.2-1.3); Blood Urea Nitrogen 46 mg/dl (9-20); Calcium 9.3 mg/dl (8.4-10.2); Carbon Dioxide 34 mmol/L (22.0-30.0); Chloride 95 mmol/L (98-107); Creatinine Clearance Estimated 117 mL/min (50-200); Estimated Glomerular Filt Rate 99 ml/min (>60); GFR (African American) 120 ML/MIN (>60); Globulin 3.3 g/dL (1.3-3.2); Glucose 90 mg/dl (74-100); Magnesium 1.9 mg/dl (1.6-2.3); Potassium 3.5 mmoL/L (3.5-5.1); Sodium 136 mmol/L (136-145)
[2024-07-09] MEDS: ENOXAPARIN 40MG/0.4ML SYRINGE 40 MG SUBCUT (10:01)
[2024-07-09] MEDS: DAPAGLIFLOZIN PROPANEDIOL 10 MG TABLET PO (10:02)
[2024-07-09] MEDS: guaiFENesin 200MG/10ML SYRUP UDC 200 MG PO ×2 (10:02→20:25)
[2024-07-09] MEDS: PANTOPRAZOLE 40MG VIAL 40 MG IV ×2 (10:02→20:25)
[2024-07-09] MEDS: predniSONE 20MG TAB 40 MG PO (10:02)
[2024-07-09] MEDS: levoFLOXacin 750 MG TABLET PO (10:02)
[2024-07-09] MEDS: SODIUM CHLORIDE 0.9% 10ML VIAL 10 ML IV ×2 (10:02→20:25)
[2024-07-09] MEDS: SILDENAFIL 20 MG 0.5 EACH PO ×3 (10:03→20:25)
[2024-07-09 10:21] LABS: Eosinophils % 3 % (0-3); Lymphocytes % 18 % (10-50); Monocytes % 4 % (2-9); Neutrophils % 75 % (42-76); Platelet Estimate Normal; RBC Morphology Normal; Total Cells Counted 100
[2024-07-09 11:16] LABS: POC Glucose,Bedside 133 (70-110)
--- NOTE | 2024-07-09 13:46 | PC.NURSE ---
Currently performing bladder training, catheter clamped at 1150. pt indicated sensation of needing to pee, tube unclamped and badder drained. 125 noted in urometer
--- NOTE | 2024-07-09 14:50 | P.PN_ITS ---
Subjective *Date: 07/09/24 *Time: 14:50 Interval history: Patient is in good spirits today, feels he is doing better. Breathing better. Cough is improving. No respiratory distress. Having bowel movements. Working with PT with good tolerance. Exam Data for Last 24 hours Vital signs and Labs for Last 24 Hours: Temp Pulse Resp BP Pulse Ox O2 Del Method O2 Flow Rate 98.3 F 106 H 22 96/60 L 91 L Venturi Mask 15 07/09/24 12:00 07/09/24 14:00 07/09/24 14:00 07/09/24 14:00 07/09/24 14:00 07/09/24 14:00 07/09/24 14:00 FiO2 50 07/09/24 11:13 Laboratory Results - last 24 hr 07/08/24 16:27: POC Glucose 142 H 07/08/24 20:50: POC Glucose 121 H 07/08/24 23:50: POC Glucose 101 07/09/24 06:02: POC Glucose 88 07/09/24 07:45: WBC 17.5 H, RBC 4.74, Hgb 13.8 L, Hct 44.2, MCV 93.2, MCH 29.1, MCHC 31.2 L, RDW 15.5, Plt Count 373, MPV 10.9 H, Neut % (Auto) 78.3, Lymph % (Auto) 13.7, [place] % (Auto) 5.3, Eos % (Auto) 1.8, Baso % (Auto) 0.2, Neut # (Auto) 13.7 H, Lymph # (Auto) 2.4, [place] # (Auto) 0.9, Eos # (Auto) 0.3, Baso # (Auto) 0.0, Total Counted 100, Neutrophils % (Manual) 75, Lymphocytes % (Manual) 18, Monocytes % (Manual) 4, Eosinophils % (Manual) 3, Platelet Estimate Normal, RBC Morphology Normal, Sodium 136, Potassium 3.5, Chloride 95 L, Carbon Dioxide 34 H, Anion Gap 10.5, BUN 46 H, Creatinine 0.80 D, Estimated Creat Clear 117, Estimated GFR 99, Est GFR ( Amer) 120 D, Glucose 90, Calcium 9.3, Magnesium 1.9, Total Bilirubin 1.4 H, AST 43, ALT 31, Alkaline Phosphatase 77, Total Protein 7.0, Albumin 3.7, Globulin 3.3 H, Albumin/Globulin Ratio 1.1 07/09/24 11:09: POC Glucose 133 H I & O for Last 24 hours: Intake & Output 07/06/24 07/07/24 07/08/24 07/09/24 23:59 23:59 23:59 23:59 Intake Total 594.490 / 594.490 500 / 500 795 / 795 770 / 770 Output Total 2150 / 2450 2625 / 2625 1315 / 1315 915 / 915 Balance -1555.510 / -1855.510 -2125 / -2125 -520 / -520 -145 / -145 Weight 85.417 kg 84.187 kg 81.7 kg 82.508 kg Constitutional Constitutional: no acute distress and average body habitus *Routine HEENT Exam Head: Present normocephalic and atraumatic ENT: Present mucous membranes moist *Routine Neck Exam Neck: Present supple; Absent JVD *Routine Respiratory Exam Respiratory: Present rhonchi *Routine Cardiovascular Exam Cardiovascular: Present RRR, Normal S1 and Normal S2; Absent murmur or gallop *Routine Abdominal Exam Abdominal: Present soft and normoactive bowel sounds; Absent organomegaly *Routine Extremities Exam Extremities: Present pulses intact; Absent cyanosis, clubbing or edema *Routine Skin Exam Skin: Present intact *Routine Neurological Exam Neurological: Present alert and oriented X3 Routine Psychiatric Exam Psychiatric: Present unable to assess Assessment and Plan *Assessment and plan (1) Severe sepsis: Status: Acute Category: Medical Code(s): A41.9 - Sepsis, unspecified organism; R65.20 - Severe sepsis without septic shock (2) Acute respiratory failure with hypoxia: Status: Acute Category: Medical Code(s): J96.01 - Acute respiratory failure with hypoxia (3) Acute exacerbation of chronic obstructive pulmonary disease (COPD): Status: Acute Category: Medical Code(s): J44.1 - Chronic obstructive pulmonary disease with (acute) exacerbation (4) Community acquired pneumonia: Status: Acute Qualifiers: Laterality: unspecified laterality Qualified Code(s): J18.9 - Pneumonia, unspecified organism Category: Medical Code(s): J18.9 - Pneumonia, unspecified organism (5) Diabetes mellitus: Status: Acute Qualifiers: Diabetes mellitus type: type 2 Diabetes mellitus half-way insulin use: without keno terminal operator use Diabetes mellitus complication status: without complication Qualified Code(s): E11.9 - Type 2 diabetes mellitus without complications Category: Medical Code(s): E11.9 - Type 2 diabetes mellitus without complications (6) Polycythemia vera: Status: Acute Category: Medical Code(s): D45 - Polycythemia vera (7) Pulmonary emphysema: Status: Acute Qualifiers: Emphysema type: centrilobular Qualified Code(s): J43.2 - Centrilobular emphysema Category: Medical Code(s): J43.9 - Emphysema, unspecified (8) RVF (right ventricular failure): Status: Acute Category: Medical Code(s): I50.810 - Right heart failure, unspecified (9) CAD (coronary artery disease): Status: Acute Qualifiers: Coronary Disease-Associated Artery/Lesion type: [place] artery [place] vs. transplanted heart: [place] heart Associated angina: without angina Qualified Code(s): I25.10 - Atherosclerotic heart disease of [place] coronary artery without angina pectoris Category: Medical Code(s): I25.10 - Atherosclerotic heart disease of [place] coronary artery without angina pectoris (10) Hypertension: Status: Acute Qualifiers: Hypertension type: unspecified Qualified Code(s): I10 - Essential (pr imary) hypertension Category: Medical Code(s): I10 - Essential (primary) hypertension (11) HLD (hyperlipidemia): Status: Acute Qualifiers: Hyperlipidemia type: mixed hyperlipidemia Qualified Code(s): E78.2 - Mixed hyperlipidemia Category: Medical Code(s): E78.5 - Hyperlipidemia, unspecified Plan Daniel Kwan is a 59-year-old male with a medical history significant for COPD on 2 L, severe sleep apnea, CAD with stent, hypertension, hyperlipidemia, type 2 diabetes who presents with worsening shortness of breath. He states he has not been taking his medications for many weeks and then he became increasingly short of breath over the past 2 weeks. Denies chest pain. Workup in the ED significant for a compensated ABG, D-dimer 0.85, BNP 1160. CTA chest revealed multifocal pneumonia in bilateral lungs with no evidence of PE. CXR suggests possible volume overload versus pneumonia. Initially on Vapotherm, eventually required intubation. #Acute hypoxic respiratory failure #Severe sepsis #Multifocal community-acquired pneumonia #Acute COPD exacerbation - S/p extubation 07/06/24. Weaned to 15L Venturi mask. Continue to wean as tolerated. - Bronchoscopy 07/04/24 showed thick mucoid secretions. - Pulmonology following, continue prednisone 40mg daily, sildenafil 10 mg 3 times daily, Xopenex ipratropium every 6 hours and Pulmicort twice daily, Mucomyst BID. - Increased haziness in the left lower lobe on CXR. WBC uptrended to 20.5 for 4 days. ? WBC improved to 17.5 today. Continue levofloxacin day 1 to cover for possible VAP/HAP. ? Follow-up repeat sputum, blood cultures. - Continue bowel regimen with Miralax daily. - Speech therapy consulted, cleared for regular diet. Patient is tolerating diet well. ? PT/OT consulted, recommending rehab placement at this time. However, patient desires to go home. Will continue to work with PT inpatient at this time #Possible HFpEF exacerbation # CAD, hypertension, hyperlipidemia - Coronary artery disease is likely stable. He ruled out for an CT. No plans for invasive left cardiac catheterization at this time. ? Holding Farxiga as it cannot be crushed per tube. Holding aspirin and Plavix due to blood in G-tube. Patient over 1yr out from his last cath #Type 2 diabetes ? ACHS glucose checks, high intensity sliding scale. Glucose 165 on morning labs. Continue insulin glargine 25 units nightly Full code DVT prophylaxis: Lovenox 40 mg subcu daily
[2024-07-09 17:05] LABS: POC Glucose,Bedside 169 (70-110)
[2024-07-09] MEDS: humaLOG 100 UNITS/ML 10ML VIAL (SSI) SUBCUT ×2 (17:14→20:51)
--- NOTE | 2024-07-09 17:54 | PC.NURSE ---
Pt has had 4 liquid bm this shift. Dr Comer made aware of pt black stools as pt has had a GI bleed this admission that has resolved. pt is able to stand without assistance while only gripping staffs hands/arms. pt is able to make small shuffleing steps to and from the bed/bsc. pt still noted to have very dry and scaly/flaky skin that is his baseline. pt is voiding dark yellow urine per quan. bladder training has been successful with pt, he is able to detect sensation of a full bladder. nad noted, pt is a/o x 4. pt voice is still soft spoken. pt is currently on a 50% venti mask with o2 sats in the upper 80's low 90's.pt is tolerating a diabetic meal with regular liquids with no outwards s/s of choking/aspiration. pt is compliant with all care. pt is able to sit himself up on the side of the bed for meals or for break from lying in the bed. pt had asked to get up to the chair for supper but after having an extensive bath, pt was noted to be tired and asked to just sit on the side of the bed.
[2024-07-09] MEDS: ATORVASTATIN 40MG TABLET 40 MG PO (20:25)
[2024-07-09] MEDS: INSULIN GLARGINE 100 UNITS/ML 3ML FLEXPEN 25 UNIT SUBCUT (20:51)
[2024-07-09 20:53] LABS: POC Glucose,Bedside 205 (70-110)
[2024-07-10] VITALS (38 sets, daily range): BP systolic 57–121; BP diastolic 24–82; PULSE 78–107; RESP 15–30; TEMP 36.6–37; O2SAT 82–98; BMI 25.3
[2024-07-10] MEDS: LEVALBUTEROL 1.25MG/3ML NEB 1.25 MG IH ×5 (00:04→23:41)
[2024-07-10] MEDS: IPRATROPIUM BROMIDE 0.5 MG/2.5ML SOLUTION IH ×5 (00:04→23:41)
--- NOTE | 2024-07-10 05:41 | PC.NURSE ---
took over care at 4am from Yokasta Davis
[2024-07-10 05:49] LABS: POC Glucose,Bedside 104 (70-110)
[2024-07-10] MEDS: ACETYLCYSTEINE 20% 4ML VIAL 2 ML IH ×2 (06:19→18:30)
[2024-07-10] MEDS: BUDESONIDE 0.5MG/2ML NEB 0.5 MG IH ×2 (06:19→18:30)
[2024-07-10 06:37] LABS: Basophils % 0.1 % (0.1-2.0); Eosinophils # 0.2 K/mm3 (0.0-0.4); Eosinophils % 0.9 % (0.1-12.0); Lymphocytes % 12.7 % (10-50); Mean Corpuscular HGB Conc 31.3 g/dL (31.8-35.4); Mean Corpuscular Hemoglobin 28.5 pg (27.0-31.2); Mean Corpuscular Volume 90.9 fl (80-94); Mean Platelet Volume 10.9 fl (7.4-10.4); Monocytes # 0.8 K/mm3 (0.1-1.0); Monocytes % 5.3 % (1.7-9.3); Neutrophils # 12.7 K/mm3 (1.8-7.8); Neutrophils % 80.6 % (37.0-80.0); Platelet Count 331 K/mm3 (142-424); Red Blood Count 4.18 M/mm3 (4.60-6.20); Red Cell Distribution Width 15.3 % (11.5-17.5); White Blood Count 15.8 K/mm3 (4.8-10.8)
[2024-07-10 06:51] LABS: MANUAL DIFFERENTIAL MANUAL DIFFERENTIAL (MANUAL DIFF)
[2024-07-10 06:53] LABS: Alanine Aminotransferase 34 U/L (12-78); Albumin Level 3.3 g/dl (3.5-5.0); Albumin/Globulin Ratio 1.1 (1.1-1.8); Alkaline Phosphatase 74 U/L (38-126); Anion Gap 10.3 mEq/L (5-15); Aspartate Amino Transferase 41 U/L (17-59); Bilirubin,Total 0.7 mg/dl (0.2-1.3); Blood Urea Nitrogen 29 mg/dl (9-20); Calcium 8.7 mg/dl (8.4-10.2); Carbon Dioxide 30 mmol/L (22.0-30.0); Chloride 97 mmol/L (98-107); Creatinine Clearance Estimated 138 mL/min (50-200); Estimated Glomerular Filt Rate 116 ml/min (>60); GFR (African American) 140 ML/MIN (>60); Globulin 2.9 g/dL (1.3-3.2); Glucose 97 mg/dl (74-100); Magnesium 1.8 mg/dl (1.6-2.3); Potassium 3.3 mmoL/L (3.5-5.1); Sodium 134 mmol/L (136-145); Total Protein,Serum 6.2 g/dl (6.3-8.2)
[2024-07-10 09:15] LABS: Eosinophils % 2 % (0-3); Lymphocytes % 11 % (10-50); Monocytes % 2 % (2-9); Neutrophils % 85 % (42-76); Platelet Estimate Normal; RBC Morphology Normal; Total Cells Counted 100
[2024-07-10] MEDS: SILDENAFIL 20 MG 0.5 EACH PO ×3 (09:15→20:50)
[2024-07-10 09:16] LABS: Hemoglobin 11.9 g/dL (14.1-18.0)
[2024-07-10] MEDS: ENOXAPARIN 40MG/0.4ML SYRINGE 40 MG SUBCUT (09:16)
[2024-07-10] MEDS: PANTOPRAZOLE 40MG VIAL 40 MG IV ×2 (09:16→20:50)
[2024-07-10] MEDS: DAPAGLIFLOZIN PROPANEDIOL 10 MG TABLET PO (09:16)
[2024-07-10] MEDS: guaiFENesin 200MG/10ML SYRUP UDC 200 MG PO ×2 (09:16→20:50)
[2024-07-10] MEDS: predniSONE 20MG TAB 40 MG PO (09:17)
[2024-07-10] MEDS: POTASSIUM CHLORIDE 20MEQ TAB 40 MEQ PO ×2 (09:18→12:40)
--- NOTE | 2024-07-10 09:53 | HMH.OTEV ---
OT Inpatient Evaluation Rehab OT IP Evaluation Start: 07/07/24 11:07 Freq: ONCE Status: Active Protocol: Document 07/10/24 09:48 [place] (Rec: 07/10/24 09:53 [facility] [id number]) Rehab OT IP Assessment Subjective History Pt oriented x 3 on arrival. Pt agreeable to engage in therapy evaluation. 59-year- old male with a medical history significant for COPD on 2 L, severe sleep apnea, CAD with stent, hypertension, hyperlipidemia, type 2 diabetes who presents with worsening shortness of breath. He has been hospitalized now for 12 days with severely limited activity. He reports he lives with his significant other, 2-3 steps to enter the home, and he is generally independent with all transfers at baseline. Subjective I feel better than yesterday. Prior to being in the hospital , pt lived at home with his . Pt claims normally he is independent with all ADLs and IADLs. 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 Objective Patient Orientation Person,Place,Birthday Right Upper Extremity Gross ROM Min Limitation <25% Left Upper Extremity Gross ROM Min Limitation <25% Shoulder ROM Limitations Muscle Weakness Elbow ROM Limitations Muscle Weakness Wrist Limitations of Range of Motion Muscle Weakness Bed Mobility bed mobility-scooting,bed mobility - supine/sit Assist Level Supervision/Stand by Transfer Training Sit/Stand Transfer Assist Level Minimal x 1 (25% assist) Chair Transfer Ability Contact Guard/Hand Hold, Minimal x 1 (25% assist) Chair Transfer Technique Sit to/from Ambulatory Rehab OT IP prob,goals,plan Problems Date of Evaluation: 07/10/24 OT IP Problems Bed Mobility,Transfers,Balance ,Self care,Safety Rehab Potential Rehab Potential Good Equipment Needs Assistive Devices Rolling / Wheeled Walker Plan OT intervention Plan Bed Mobility,Transfers,Balance ,Self care,Safety,Therapeutic Exercise OT Plan Frequency Daily Duration LOS Discharge Goals Bed Mobility Ability Standby Assistance Sit to Stand Chair Transfer Ability Supervision/Stand by Chair Transfer Ability Supervision/Stand by Chair Transfer Technique Sit to/from Ambulatory Chair Transfer Assistive Devices Rolling Walker Feeding Ability Assist with Tray Set Up Lower Body Dressing Ability Minimal Assistance Upper Body Dressing Ability Standby Assistance Bathing Ability Minimal Assistance Performing Toilet Hygiene Ability Minimal Assistance Overall Commode/Toilet Transfer Ability Standby Assistance Commode/Toilet Transfer Technique Sit to/from Ambulatory Commode/Toilet Transfer Assistive Grab Bars Devices Oral Care Assist Standby Assistance Decrease in Endurance Yes Discharge Plan OT Discharge Plan Pt will continue to be seen for OT services while at [facility]. Pt is currently most appropriate for rehab placement once medically stable due to a decline in functional ability. Continued skilled therapy is important in order to improve strength, safety, endurance, ADL independence, and functional transfers to reach PLOF. Eval Complexity Eval Charge Codes 15781 - Moderate Complexity PHYSICIAN CERTIFICATION: I certify the specified therapy services for Daniel Kwan are required, authorized, and reviewed every 30 days.
--- NOTE | 2024-07-10 10:00 | P.PN_ITS ---
Subjective *Date: 07/10/24 *Time: 12:45 Interval history: No acute respiratory events over the weekend. Patient admits continued improvement in his respiratory symptoms Pulmonology Exam Inpatient Vital signs and Labs for Last 24 Hours: Temp Pulse Resp BP Pulse Ox O2 Del Method O2 Flow Rate 97.8 F 100 H 18 105/64 L 92 L Venturi Mask 15 07/10/24 08:00 07/10/24 09:59 07/10/24 09:59 07/10/24 09:59 07/10/24 09:59 07/10/24 09:59 07/10/24 09:59 FiO2 50 07/10/24 07:37 Laboratory Results - last 24 hr 07/09/24 07:45: Total Counted 100, Neutrophils % (Manual) 75, Lymphocytes % (Manual) 18, Monocytes % (Manual) 4, Eosinophils % (Manual) 3, Platelet Estimate Normal, RBC Morphology Normal 07/09/24 11:09: POC Glucose 133 H 07/09/24 16:59: POC Glucose 169 H 07/09/24 20:40: POC Glucose 205 H 07/10/24 05:38: WBC 15.8 H, RBC 4.18 L, Hgb 11.9 L D, Hct 38.0 L, MCV 90.9, MCH 28.5, MCHC 31.3 L, RDW 15.3, Plt Count 331, MPV 10.9 H, Neut % (Auto) 80.6 H, Lymph % (Auto) 12.7, [place] % (Auto) 5.3, Eos % (Auto) 0.9, Baso % (Auto) 0.1, Neut # (Auto) 12.7 H, Lymph # (Auto) 2.0, [place] # (Auto) 0.8, Eos # (Auto) 0.2, Baso # (Auto) 0.0, Total Counted 100, Neutrophils % (Manual) 85 H, Lymphocytes % (Manual) 11, Monocytes % (Manual) 2, Eosinophils % (Manual) 2, Platelet Estimate Normal, RBC Morphology Normal, Sodium 134 L, Potassium 3.3 L, Chloride 97 L, Carbon Dioxide 30, Anion Gap 10.3, BUN 29 H D, Creatinine 0.70, Estimated Creat Clear 138, Estimated GFR 116, Est GFR ( Amer) 140, Glucose 97, POC Glucose 104, Calcium 8.7, Magnesium 1.8, Total Bilirubin 0.7, AST 41, ALT 34, Alkaline Phosphatase 74, Total Protein 6.2 L, Albumin 3.3 L D, Globulin 2.9, Albumin/Globulin Ratio 1.1 I & O for Labs for Last 24 Hours: Intake & Output 07/07/24 07/08/24 07/09/24 07/10/24 23:59 23:59 23:59 23:59 Intake Total 500 / 500 795 / 795 1040 / 1040 480 / 480 Output Total 2625 / 2625 1315 / 1315 1390 / 1390 775 / 775 Balance -2125 / -2125 -520 / -520 -350 / -350 -295 / -295 Weight 185 lb 9.6 oz 180 lb 1.883 oz 181 lb 14.4 oz 187 lb 1.6 oz Microbiology Reports for the Last 24 Hours: Microbiology 07/09/24 13:42 Sputum - Expectorated Sputum Gram Stain - Final 07/09/24 13:42 Sputum - Expectorated Sputum Sputum Culture - Preliminary Constitutional: Present severe distress Head: Present normocephalic and atraumatic ENT: Present normal exam, normal oropharynx and mucous membranes moist Neck: Present normal inspection and full ROM Respiratory: Present respiratory distress, rhonchi and able to speak in complete sentences; Absent wheezes, crackles, diminished air movement or normal respiratory effort Cardiac: Present S1/S2, Tachycardia and radial pulses present GI: Present soft and distention; Absent tenderness or guarding Skin: Present intact; Absent cyanosis or jaundice Neuro: Present alert, awake and oriented x 3 Extremities: Present normal inspection; Absent clubbing or cyanosis Psychiatric: Present normal affect and cooperative Assessment and Plan *Assessment and plan (1) Acute exacerbation of chronic obstructive pulmonary disease (COPD): Status: Acute Category: Medical Code(s): J44.1 - Chronic obstructive pulmonary disease with (acute) exacerbation (2) Acute respiratory failure with hypoxia: Status: Acute Category: Medical Code(s): J96.01 - Acute respiratory failure with hypoxia (3) Community acquired pneumonia: Status: Acute Qualifiers: Laterality: unspecified laterality Qualified Code(s): J18.9 - Pneumonia, unspecified organism Category: Medical Code(s): J18.9 - Pneumonia, unspecified organism Plan Mr. Carmona is a 59-year-old male greater than [id number] smoking history, COPD, sleep apnea previously refused CPAP therapy presented to the ER with worsening respiratory distress and pulmonary was called for further evaluation and management. CTA upon admission suboptimal timing, no obvious central pulmonary embolism but right lower lobe airspace disease and consolidative changes noted. AFebrile. Hemodynamically stable. Currently receicing cefepime azithromycin and steroids and nebulization therapies. On initial examination severe respiratory distress. Oxygen desaturation noted with high flow nasal cannula 40 L 100%, escalated to BiPAP therapy with saturations maintained at 89% and above. Mini respiratory viral PCR panel negative lower extremity venous Doppler negative for DVT. Echo continued to show RV dilation and reduced RV function since 2022 likely secondary to uncontrolled sleep apnea and severe COPD. No Doppler evidence of interatrial shunt Nasal MRSA PCR negative. Sputum prelim gram-positive diplococci. CT PE protocol 07/04/2024 no evidence of pulmonary embolism. Clear lung henry with no effusions. Left lower lobe collapse. Status post bronchoscopy 07/04/2024 thick tenacious mucoid secretions from the left lower lobe suction. Airway is otherwise clear. Interval update: No acute respiratory vents over the weekend. Tolerating Ventimask well. Current receive chest percussion therapy. Worsening leukocytosis over the weekend, initiated on levofloxacin. Plan: Continue oxygen supplementation, wean as tolerated. Currently on Ventimask 40%. Incentive spirometry PT OT Continue DuoNebs every 6 hours and Pulmicort every 12 scheduled Continue sildenafil 10 mg 3 times daily scheduled Continue Mucomyst twice daily scheduled Thank you for involving pulmonary in this patient care. Will continue to follow.
[2024-07-10] MEDS: levoFLOXacin 750 MG TABLET PO (10:20)
--- NOTE | 2024-07-10 10:30 | SW/DCPLANNER ---
Addendum entered by Ryanne Boland 07/12/24 10:49: Patient will discharge home today and return to [facility] for outpatient PT services. Addendum entered by Ryanne Boland 07/11/24 13:49: Patient and S.O. prefer to return home at time of discharge w/ plans to return back to [facility] outpatient PT. Per PT patient is improving at this time. Patient currently has night time home O2 thru [facility]. Patient also stated that he has a rolling walker at home. I will continue to follow up w/ this patient until medically stable for discharge. Original Note: I spoke w/ this patient and his family at bedside in regards to plans once medically stable for discharge. PT/OT evaluated patient and recommended SNF level of care at time of discharge. Patient voiced that he is not interested in rehab at this time. Patient wants to continue to work w/ PT and have improvement. I informed patient that I will revisit placement options once PT works w/ patient again this afternoon. Patient does currently lives at home w/ significant other. Discharge date is unknown at this time.
[2024-07-10] MEDS: humaLOG 100 UNITS/ML 10ML VIAL (SSI) SUBCUT ×2 (11:18→16:59)
[2024-07-10 11:23] LABS: POC Glucose,Bedside 215 (70-110)
--- NOTE | 2024-07-10 13:47 | PC.NURSE ---
pt up with pt ambulating around unit. tolerated well.
[2024-07-10 17:00] LABS: POC Glucose,Bedside 196 (70-110)
--- NOTE | 2024-07-10 18:30 | PC.NURSE ---
pt sitting up in bed at this time. pt did ambulate in the raygoza today with therapy and then sat up in the chair for hours, tolerated well. pt weaned from 50% venti to 35% venti with current sats 95%. HR NSR-ST. abdomen soft nontender, bs active. f/c removed this shift and pt voiding per urinal. Eloisa, significant other at bedside.
[2024-07-10] MEDS: ATORVASTATIN 40MG TABLET 40 MG PO (20:50)
[2024-07-10] MEDS: INSULIN GLARGINE 100 UNITS/ML 3ML FLEXPEN 25 UNIT SUBCUT (20:50)
[2024-07-10] MEDS: SODIUM CHLORIDE 0.9% 10ML VIAL 10 ML IV (20:50)
[2024-07-10 20:51] LABS: POC Glucose,Bedside 145 (70-110)
--- NOTE | 2024-07-10 22:14 | EXP.PN ---
Subjective *Date: 07/10/24 *Time: 22:14 Interval history: Patient continues to improve, no acute events overnight. Having decreased productive cough, minimal suctioning. Working with PT. Weaned to 4 L nasal cannula this evening. Exam Data for Last 24 hours Vital signs and Labs for Last 24 Hours: Temp Pulse Resp BP Pulse Ox O2 Del Method O2 Flow Rate 98.6 F 81 20 116/69 91 L Nasal Cannula 4 07/10/24 16:00 07/10/24 22:00 07/10/24 22:00 07/10/24 22:00 07/10/24 22:00 07/10/24 22:00 07/10/24 22:00 FiO2 30 07/10/24 20:00 Laboratory Results - last 24 hr 07/10/24 05:38: WBC 15.8 H, RBC 4.18 L, Hgb 11.9 L D, Hct 38.0 L, MCV 90.9, MCH 28.5, MCHC 31.3 L, RDW 15.3, Plt Count 331, MPV 10.9 H, Neut % (Auto) 80.6 H, Lymph % (Auto) 12.7, [place] % (Auto) 5.3, Eos % (Auto) 0.9, Baso % (Auto) 0.1, Neut # (Auto) 12.7 H, Lymph # (Auto) 2.0, [place] # (Auto) 0.8, Eos # (Auto) 0.2, Baso # (Auto) 0.0, Total Counted 100, Neutrophils % (Manual) 85 H, Lymphocytes % (Manual) 11, Monocytes % (Manual) 2, Eosinophils % (Manual) 2, Platelet Estimate Normal, RBC Morphology Normal, Sodium 134 L, Potassium 3.3 L, Chloride 97 L, Carbon Dioxide 30, Anion Gap 10.3, BUN 29 H D, Creatinine 0.70, Estimated Creat Clear 138, Estimated GFR 116, Est GFR ( Amer) 140, Glucose 97, POC Glucose 104, Calcium 8.7, Magnesium 1.8, Total Bilirubin 0.7, AST 41, ALT 34, Alkaline Phosphatase 74, Total Protein 6.2 L, Albumin 3.3 L D, Globulin 2.9, Albumin/Globulin Ratio 1.1 07/10/24 11:16: POC Glucose 215 H 07/10/24 16:41: POC Glucose 196 H 07/10/24 20:44: POC Glucose 145 H I & O for Last 24 hours: Intake & Output 07/07/24 07/08/24 07/09/24 07/10/24 23:59 23:59 23:59 23:59 Intake Total 500 / 500 795 / 795 1040 / 1040 1560 / 1560 Output Total 2625 / 2625 1315 / 1315 1390 / 1390 1750 / 1750 Balance -2125 / -2125 -520 / -520 -350 / -350 -190 / -190 Weight 84.187 kg 81.7 kg 82.508 kg 84.867 kg Microbiology Reports for the Last 24 Hours: Microbiology 07/09/24 13:10 Blood Blood Culture - Preliminary NO GROWTH AFTER 24 HOURS 07/09/24 13:10 Blood Blood Culture - Preliminary NO GROWTH AFTER 24 HOURS 07/09/24 13:42 Sputum - Expectorated Sputum Gram Stain - Final 07/09/24 13:42 Sputum - Expectorated Sputum Sputum Culture - Preliminary Constitutional Constitutional: no acute distress and average body habitus *Routine HEENT Exam Head: Present normocephalic and atraumatic ENT: Present mucous membranes moist *Routine Neck Exam Neck: Present supple; Absent JVD *Routine Respiratory Exam Respiratory: Present rhonchi *Routine Cardiovascular Exam Cardiovascular: Present RRR, Normal S1 and Normal S2; Absent murmur or gallop *Routine Abdominal Exam Abdominal: Present soft and normoactive bowel sounds; Absent organomegaly *Routine Extremities Exam Extremities: Present pulses intact; Absent cyanosis, clubbing or edema *Routine Skin Exam Skin: Present intact *Routine Neurological Exam Neurological: Present alert and oriented X3 Routine Psychiatric Exam Psychiatric: Present unable to assess Assessment and Plan *Assessment and plan (1) Severe sepsis: Status: Acute Category: Medical Code(s): A41.9 - Sepsis, unspecified organism; R65.20 - Severe sepsis without septic shock (2) Acute respiratory failure with hypoxia: Status: Acute Category: Medical Code(s): J96.01 - Acute respiratory failure with hypoxia (3) Acute exacerbation of chronic obstructive pulmonary disease (COPD): Status: Acute Category: Medical Code(s): J44.1 - Chronic obstructive pulmonary disease with (acute) exacerbation (4) Community acquired pneumonia: Status: Acute Qualifiers: Laterality: unspecified laterality Qualified Code(s): J18.9 - Pneumonia, unspecified organism Category: Medical Code(s): J18.9 - Pneumonia, unspecified organism (5) Diabetes mellitus: Status: Acute Qualifiers: Diabetes mellitus type: type 2 Diabetes mellitus alf insulin use: without predatory animal exterminator use Diabetes mellitus complication status: without complication Qualified Code(s): E11.9 - Type 2 diabetes mellitus without complications Category: Medical Code(s): E11.9 - Type 2 diabetes mellitus without complications (6) Polycythemia vera: Status: Acute Category: Medical Code(s): D45 - Polycythemia vera (7) Pulmonary emphysema: Status: Acute Qualifiers: Emphysema type: centrilobular Qualified Code(s): J43.2 - Centrilobular emphysema Category: Medical Code(s): J43.9 - Emphysema, unspecified (8) RVF (right ventricular failure): Status: Acute Category: Medical Code(s): I50.810 - Right heart failure, unspecified (9) CAD (coronary artery disease): Status: Acute Qualifiers: Coronary Disease-Associated Artery/Lesion type: [place] artery [place] vs. transplanted heart: [place] heart Associated angina: without angina Qualified Code(s): I25.10 - Atherosclerotic heart disease of [place] coronary artery without angina pectoris Category: Medical Code(s): I25.10 - Atherosclerotic heart disease of [place] coronary artery without angina pectoris (10) Hypertension: Status: Acute Qualifiers: Hypertension type: unspecified Qualified Code(s): I10 - Essential (primary) hypertension Category: Medical Code(s): I10 - Essential (primary) hypertension (11) HLD (hyperlipidemia): Status: Acute Qualifiers: Hyperlipidemia type: mixed hyperlipidemia Qualified Code(s): E78.2 - Mixed hyperlipidemia Category: Medical Code(s): E78.5 - Hyperlipidemia, unspecified Plan Daniel Kwan is a 59-year-old male with a medical history significant for COPD on 2 L, severe sleep apnea, CAD with stent, hypertension, hyperlipidemia, type 2 diabetes who presents with worsening shortness of breath. He states he has not been taking his medications for many weeks and then he became increasingly short of breath over the past 2 weeks. Denies chest pain. Workup in the ED significant for a compensated ABG, D-dimer 0.85, BNP 1160. CTA chest revealed multifocal pneumonia in bilateral lungs with no evidence of PE. CXR suggests possible volume overload versus pneumonia. Initially on Vapotherm, eventually required intubation. #Acute hypoxic respiratory failure #Severe sepsis #Multifocal community-acquired pneumonia #Suspected ventilator/hospital-acquired pneumonia #Acute COPD exacerbation - S/p extubation 07/06/24. Weaned to 4 L nasal cannula this evening. Continue to wean as tolerated. - Bronchoscopy 07/04/24 showed thick mucoid secretions. Patient is requiring minimal suctioning at this time. Productive cough also significantly improved. - Pulmonology following, continue prednisone 40mg daily, sildenafil 10 mg 3 times daily, Xopenex ipratropium every 6 hours and Pulmicort twice daily, Mucomyst BID. - Increased haziness in the left lower lobe on CXR 07/07/2024. WBC had uptrended to 20.5 at that time. ? WBC improved to 15.8 today. Continue levofloxacin day 3 to cover for possible VAP/HAP. ? Follow-up repeat sputum cultures. Repeat blood cultures NGTD 24 hours - Continue bowel regimen with Miralax daily. - Speech therapy consulted after extubation, cleared for regular diet. Patient is tolerating diet well. ? PT/OT following, recommending rehab placement at this time. However, patient desires to go home. Will continue to work with PT inpatient daily at this time. #CAD - Coronary artery disease is likely stable. He ruled out for an HI. No plans for invasive left cardiac catheterization at this time. ? Holding Farxiga for now. Continue aspirin 81 mg. Currently euvolemic #Type 2 diabetes ? ACHS glucose checks, high intensity sliding scale. ? Continue Lantus 25 units nightly. Blood sugar stable at this time. Full code DVT prophylaxis: Lovenox 40 mg subcu daily
[2024-07-11] VITALS (22 sets, daily range): BP systolic 97–141; BP diastolic 39–85; PULSE 70–108; RESP 13–25; TEMP 36.4–36.8; O2SAT 79–99; BMI 25.1
[2024-07-11 05:47] LABS: Basophils % 0.1 % (0.1-2.0); Eosinophils # 0.1 K/mm3 (0.0-0.4); Hematocrit 32.9 % (42.0-52.0); Lymphocytes # 2.3 K/mm3 (0.7-4.5); Lymphocytes % 16.3 % (10-50); Mean Corpuscular HGB Conc 31.6 g/dL (31.8-35.4); Mean Corpuscular Hemoglobin 28.8 pg (27.0-31.2); Mean Corpuscular Volume 91.1 fl (80-94); Mean Platelet Volume 10.6 fl (7.4-10.4); Monocytes # 0.8 K/mm3 (0.1-1.0); Monocytes % 5.7 % (1.7-9.3); Neutrophils # 10.6 K/mm3 (1.8-7.8); Neutrophils % 76.4 % (37.0-80.0); Platelet Count 338 K/mm3 (142-424); Red Blood Count 3.61 M/mm3 (4.60-6.20); Red Cell Distribution Width 15.2 % (11.5-17.5); White Blood Count 13.8 K/mm3 (4.8-10.8)
[2024-07-11 05:49] LABS: Anion Gap 9.2 mEq/L (5-15); Blood Urea Nitrogen 27 mg/dl (9-20); Carbon Dioxide 29 mmol/L (22.0-30.0); Chloride 101 mmol/L (98-107); Creatinine Clearance Estimated 120 mL/min (50-200); Potassium 4.2 mmoL/L (3.5-5.1); Sodium 135 mmol/L (136-145)
[2024-07-11 05:50] LABS: Alanine Aminotransferase 42 U/L (12-78); Albumin/Globulin Ratio 1.1 (1.1-1.8); Alkaline Phosphatase 68 U/L (38-126); Aspartate Amino Transferase 42 U/L (17-59); Bilirubin,Total 0.5 mg/dl (0.2-1.3); Calcium 8.3 mg/dl (8.4-10.2); Estimated Glomerular Filt Rate 99 ml/min (>60); GFR (African American) 120 ML/MIN (>60); Globulin 2.7 g/dL (1.3-3.2); Glucose 116 mg/dl (74-100); Magnesium 1.7 mg/dl (1.6-2.3); Total Protein,Serum 5.7 g/dl (6.3-8.2)
--- NOTE | 2024-07-11 05:58 | PC.NURSE ---
Patient had a wonderful night. Rested well has had no complaints
[2024-07-11 06:02] LABS: Hemoglobin 10.5 g/dL (14.1-18.0)
[2024-07-11] MEDS: ACETYLCYSTEINE 20% 4ML VIAL 2 ML IH ×2 (06:29→18:13)
[2024-07-11] MEDS: BUDESONIDE 0.5MG/2ML NEB 0.5 MG IH ×2 (06:29→18:13)
[2024-07-11] MEDS: IPRATROPIUM BROMIDE 0.5 MG/2.5ML SOLUTION IH ×4 (06:29→23:36)
[2024-07-11] MEDS: LEVALBUTEROL 1.25MG/3ML NEB 1.25 MG IH ×4 (06:29→23:36)
[2024-07-11 06:35] LABS: POC Glucose,Bedside 107 (70-110)
--- NOTE | 2024-07-11 07:39 | EXP.ACUTE.PN ---
Subjective *Date: 07/11/24 *Time: 18:47 Interval history: Patient in bedside chair on rounds. Interactive on exam. On nasal cannula oxygen for vent per night. Tolerating 2 to 3 L this morning nasal cannula. Labs continue to improve. Working with therapy. Globally weak but doing well. Has help at home, wants to discharge home when stable. Denies any chest pain or shortness of breath. Overall feeling better. No significant cough today. No nausea or vomiting. Afebrile Medical Exam Vital signs and Labs for Last 24 Hours: Vital Signs Temp Pulse Resp BP Pulse Ox O2 Del Method O2 Flow Rate 07/11/24 06:57 Venturi Mask 9 07/11/24 06:31 79 07/11/24 06:31 81 07/11/24 06:31 93 L Venturi Mask 9 07/11/24 06:00 86 19 128/85 95 Venturi Mask 2 07/11/24 05:00 Venturi Mask 9 07/11/24 04:00 Venturi Mask 9 07/11/24 04:00 82 07/11/24 04:00 98.3 F 78 16 141/79 H 93 L Venturi Mask 2 07/11/24 03:00 Venturi Mask 9 07/11/24 02:02 103/51 L 07/11/24 02:02 86 97 07/11/24 02:01 89 97 07/11/24 02:01 97/39 L 07/11/24 02:00 80 97 07/11/24 01:00 87 96 07/11/24 01:00 Venturi Mask 9 07/11/24 00:00 118/72 07/11/24 00:00 88 90 L 07/11/24 00:00 90 07/11/24 00:00 89 07/11/24 00:00 93 L Venturi Mask 9 07/11/24 00:00 90 07/10/24 23:59 97.8 F 83 19 115/82 93 L Nasal Cannula 4 07/10/24 23:00 89 88 L 07/10/24 23:00 Venturi Mask 07/10/24 22:00 81 92 L 07/10/24 22:00 116/69 07/10/24 22:00 81 20 116/69 91 L Nasal Cannula 4 07/10/24 21:00 84 17 103/51 L 95 07/10/24 21:00 Venturi Mask 07/10/24 20:00 Venturi Mask 07/10/24 20:00 78 07/10/24 20:00 99 H 92 L 07/10/24 19:46 121/76 07/10/24 19:46 95 H 98 07/10/24 19:00 95 H 93 L 07/10/24 18:35 Venturi Mask 07/10/24 18:00 95 H 95 07/10/24 18:00 112/71 07/10/24 18:00 88 07/10/24 18:00 91 H 07/10/24 18:00 94 L Venturi Mask 07/10/24 18:00 91 H 20 07/10/24 17:59 95 H 18 105/64 L 95 Venturi Mask 07/10/24 17:00 94 H 96 07/10/24 17:00 Venturi Mask 07/10/24 16:00 97 H 95 07/10/24 16:00 105/68 L 07/10/24 16:00 98.6 F 88 18 105/68 L 90 L Venturi Mask 07/10/24 16:00 18 92 L Venturi Mask 07/10/24 15:00 92 H 87 L 07/10/24 15:00 Venturi Mask 07/10/24 14:11 90 L 07/10/24 14:04 96/63 L 07/10/24 14:04 100 H 30 H 91 L 07/10/24 14:01 57/24 L 07/10/24 14:01 103 H 90 L 07/10/24 14:00 104 H 89 L 07/10/24 14:00 101 H 18 96/63 L 90 L Venturi Mask 07/10/24 13:45 98 H 07/10/24 13:45 98 H 07/10/24 13:45 93 L Venturi Mask 07/10/24 13:00 106 H 93 L 07/10/24 12:41 Venturi Mask 07/10/24 12:00 96/61 L 07/10/24 12:00 101 H 89 L 07/10/24 12:00 98.1 F 07/10/24 11:53 105 H 07/10/24 11:45 100/61 L 07/10/24 11:45 103 H 89 L 07/10/24 11:42 107 H 18 100/61 L 90 L Venturi Mask 15 07/10/24 11:00 103 H 90 L 07/10/24 10:48 Venturi Mask 15 07/10/24 10:00 106 H 92 L 07/10/24 09:59 100 H 18 105/64 L 92 L Venturi Mask 15 07/10/24 09:00 95 H 15 92 L 07/10/24 09:00 Venturi Mask 15 07/10/24 08:00 105/64 L 07/10/24 08:00 102 H 93 L 07/10/24 08:00 97.8 F FiO2 07/11/24 06:57 07/11/24 06:31 07/11/24 06:31 07/11/24 06:31 35 07/11/24 06:00 07/11/24 05:00 07/11/24 04:00 35 07/11/24 04:00 07/11/24 04:00 07/11/24 03:00 07/11/24 02:02 07/11/24 02:02 07/11/24 02:01 07/11/24 02:01 07/11/24 02:00 07/11/24 01:00 07/11/24 01:00 07/11/24 00:00 07/11/24 00:00 07/11/24 00:00 07/11/24 00:00 07/11/24 00:00 35 07/11/24 00:00 07/10/24 23:59 07/10/24 23:00 07/10/24 23:00 07/10/24 22:00 07/10/24 22:00 07/10/24 22:00 07/10/24 21:00 07/10/24 21:00 07/10/24 20:00 30 07/10/24 20:00 07/10/24 20:00 07/10/24 19:46 07/10/24 19:46 07/10/24 19:00 07/10/24 18:35 07/10/24 18:00 07/10/24 18:00 07/10/24 18:00 07/10/24 18:00 07/10/24 18:00 35 07/10/24 18:00 07/10/24 17:59 07/10/24 17:00 07/10/24 17:00 07/10/24 16:00 07/10/24 16:00 07/10/24 16:00 07/10/24 16:00 35 07/10/24 15:00 07/10/24 15:00 07/10/24 14:11 35 07/10/24 14:04 07/10/24 14:04 07/10/24 14:01 07/10/24 14:01 07/10/24 14:00 07/10/24 14:00 07/10/24 13:45 07/10/24 13:45 07/10/24 13:45 40 07/10/24 13:00 07/10/24 12:41 07/10/24 12:00 07/10/24 12:00 07/10/24 12:00 07/10/24 11:53 07/10/24 11:45 07/10/24 11:45 07/10/24 11:42 07/10/24 11:00 07/10/24 10:48 07/10/24 10:00 07/10/24 09:59 07/10/24 09:00 07/10/24 09:00 07/10/24 08:00 07/10/24 08:00 07/10/24 08:00 Intake and Output 07/10/24 07/10/24 07/11/24 15:59 23:59 07:59 Intake Total 960 / 1560 600 / 1560 Output Total 350 / 1750 800 / 1750 1025 / 1025 Balance 610 / -190 -200 / -190 -1025 / -1025 Intake: Intake, Oral Amount 960 / 1560 600 / 1560 Output: Output, Urine Amount 0 / 1400 800 / 1400 1025 / 1025 Output, Urine Amount (Catheter) 350 / 350 Muhammad 350 / 350 Other: Number of Unmeasured Voids 1 Weight 84.141 kg Patient Weight 07/11/24 23:59 Weight 84.141 kg Laboratory Results - last 24 hr 07/10/24 05:38: Hgb 11.9 L D, Total Counted 100, Neutrophils % (Manual) 85 H, Lymphocytes % (Manual) 11, Monocytes % (Manual) 2, Eosinophils % (Manual) 2, Platelet Estimate Normal, RBC Morphology Normal 07/10/24 11:16: POC Glucose 215 H 07/10/24 16:41: POC Glucose 196 H 07/10/24 20:44: POC Glucose 145 H 07/11/24 05:15: WBC 13.8 H, RBC 3.61 L, Hgb 10.5 L D, Hct 32.9 L, MCV 91.1, MCH 28.8, MCHC 31.6 L, RDW 15.2, Plt Count 338, MPV 10.6 H, Neut % (Auto) 76.4, Lymph % (Auto) 16.3, [place] % (Auto) 5.7, Eos % (Auto) 1.0, Baso % (Auto) 0.1, Neut # (Auto) 10.6 H, Lymph # (Auto) 2.3, [place] # (Auto) 0.8, Eos # (Auto) 0.1, Baso # (Auto) 0.0, Sodium 135 L, Potassium 4.2 D, Chloride 101, Carbon Dioxide 29, Anion Gap 9.2, BUN 27 H, Creatinine 0.80, Estimated Creat Clear 120, Estimated GFR 99, Est GFR ( Amer) 120, Glucose 116 H, Calcium 8.3 L, Magnesium 1.7, Total Bilirubin 0.5, AST 42, ALT 42, Alkaline Phosphatase 68, Total Protein 5.7 L, Albumin 3.0 L, Globulin 2.7, Albumin/Globulin Ratio 1.1 07/11/24 06:00: POC Glucose 107 I & O for Labs for Last 24 Hours: Intake & Output 07/08/24 07/09/24 07/10/24 07/11/24 23:59 23:59 23:59 23:59 Intake Total 795 / 795 1040 / 1040 1560 / 1560 Output Total 1315 / 1315 1390 / 1390 1750 / 1750 1025 / 1025 Balance -520 / -520 -350 / -350 -190 / -190 -1025 / -1025 Weight 81.7 kg 82.508 kg 84.867 kg 84.141 kg Microbiology Reports for the Last 24 Hours: Microbiology 07/09/24 13:42 Sputum - Expectorated Sputum Gram Stain - Final 07/09/24 13:42 Sputum - Expectorated Sputum Sputum Culture - Final 07/09/24 13:10 Blood Blood Culture - Preliminary NO GROWTH AFTER 24 HOURS 07/09/24 13:10 Blood Blood Culture - Preliminary NO GROWTH AFTER 24 HOURS Constitutional: Present no acute distress, average body habitus, chronically ill appearing and cooperative Head: Present atraumatic and normocephalic ENT: Present normal exam Respiratory: Present prolonged expiratory phase, diminished air movement and normal respiratory effort; Absent rhonchi, wheezes or crackles Cardiac: Present Reg Rate and Rhythm GI: Present soft and normal bowel sounds; Absent distention or tenderness Extremities: Present normal inspection and full ROM Skin: Present intact and dry (Significant scale and flaking); Absent erythema Neuro: Present Grossly Intact, alert, awake, oriented x 3 and moves all extremities Assessment and Plan *Assessment and plan (1) Pneumonia: Status: Acute Qualifiers: Laterality: right Lung location: lower lobe of lung Pneumonia type: due to other aerobic Gram-negative bacteria Qualified Code(s): J15.69 - Pneumonia due to other Gram-negative bacteria Category: Medical Code(s): J18.9 - Pneumonia, unspecified organism (2) Severe sepsis: Status: Acute Category: Medical Code(s): A41.9 - Sepsis, unspecified organism; R65.20 - Severe sepsis without septic shock (3) Acute respiratory failure with hypoxia: Status: Acute Category: Medical Code(s): J96.01 - Acute respiratory failure with hypoxia (4) Acute exacerbation of chronic obstructive pulmonary disease (COPD): Status: Acute Category: Medical Code(s): J44.1 - Chronic obstructive pulmonary disease with (acute) exacerbation (5) Diabetes mellitus: Status: Acute Qualifiers: Diabetes mellitus complication status: without complication Diabetes mellitus analysis manager insulin use: without assisted use Diabetes mellitus type: type 2 Qualified Code(s): E11.9 - Type 2 diabetes mellitus without complications Category: Medical Code(s): E11.9 - Type 2 diabetes mellitus without complications (6) Polycythemia vera: Status: Acute Category: Medical Code(s): D45 - Polycythemia vera (7) Pulmonary emphysema: Status: Acute Qualifiers: Emphysema type: centrilobular Qualified Code(s): J43.2 - Centrilobular emphysema Category: Medical Code(s): J43.9 - Emphysema, unspecified (8) RVF (right ventricular failure): Status: Acute Category: Medical Code(s): I50.810 - Right heart failure, unspecified (9) CAD (coronary artery disease): Status: Acute Qualifiers: Associated angina: without angina Coronary Disease-Associated Artery/Lesion type: [place] artery [place] vs. transplanted heart: [place] heart Qualified Code(s): I25.10 - Atherosclerotic heart disease of [place] coronary artery without angina pectoris Category: Medical Code(s): I25.10 - Atherosclerotic heart disease of [place] coronary artery without angina pectoris (10) Hypertension: Status: Acute Qualifiers: Hypertension type: unspecified Qualified Code(s): I10 - Essential (primary) hypertension Category: Medical Code(s): I10 - Essential (primary) hypertension Plan Daniel Kwan is a 59-year-old male with a medical history significant for COPD on 2 L, severe sleep apnea, CAD with stent, hypertension, hyperlipidemia, type 2 diabetes who presents with worsening shortness of breath. He states he has not been taking his medications for many weeks and then he became increasingly short of breath over the past 2 weeks. Denies chest pain. Workup in the ED significant for a compensated ABG, D-dimer 0.85, BNP 1160. CTA chest revealed multifocal pneumonia in bilateral lungs with no evidence of PE. CXR suggests possible volume overload versus pneumonia. Initially on Vapotherm, eventually required intubation. Extubated last week, doing well. Weaning Vapotherm. Pleased with patient's progress. Anticipate discharge in the next day or 2. Pulmonology assisting with care, problems addressed as follows: #Acute hypoxic respiratory failure #Severe sepsis #Multifocal community-acquired pneumonia #Suspected ventilator/hospital-acquired pneumonia #Acute COPD exacerbation - S/p extubation 07/06/24. Weaned to 4 L nasal cannula this evening. Continue to wean as tolerated. - Bronchoscopy 07/04/24 showed thick mucoid secretions. Patient is requiring minimal suctioning at this time. Productive cough also significantly improved. - Continuing Levaquin 750 daily along with prednisone 40 mg daily -Continue Xopenex ipratropium every 6 hours and Pulmicort twice daily, Mucomyst BID. - Increased haziness in the left lower lobe on CXR 07/07/2024 ?White count improved to 13.8, repeat CBC, CMP, magnesium ordered for the morning. -Discussed case with pulmonology, recommend discontinuing sildenafil today. Continue to wean oxygen for goal sats greater 90%. Currently on nasal cannula. - Continue bowel regimen with Miralax daily. - Speech therapy consulted after extubation, cleared for regular diet. Patient is tolerating diet well. - PT/OT following, recommending rehab placement at this time. However, patient desires to go home. Will continue to work with PT inpatient daily at this time. #CAD - Coronary artery disease is likely stable. He ruled out for an PA. No plans for invasive left cardiac catheterization at this time. ? Holding Farxiga for now. Continue aspirin 81 mg. Currently euvolemic #Type 2 diabetes ? ACHS glucose checks, high intensity sliding scale. Morning glucose 116. - Kidney function back to baseline with BUN 27, creatinine 0.8 ? Continue Lantus 25 units nightly. Blood sugar stable at this time. Full code DVT prophylaxis: Lovenox 40 mg subcu daily Diabetic diet
[2024-07-11] MEDS: POLYETHYLENE GLYCOL 3350 17 GM PACKET G-TUBE (08:59)
[2024-07-11] MEDS: guaiFENesin 200MG/10ML SYRUP UDC 200 MG PO ×2 (09:01→21:06)
[2024-07-11] MEDS: SODIUM CHLORIDE 0.9% 10ML VIAL 10 ML IV (09:01)
[2024-07-11] MEDS: ENOXAPARIN 40MG/0.4ML SYRINGE 40 MG SUBCUT (09:01)
[2024-07-11] MEDS: ASPIRIN EC 81MG TABLET 81 MG PO (09:01)
[2024-07-11] MEDS: predniSONE 20MG TAB 40 MG PO (09:01)
[2024-07-11] MEDS: DAPAGLIFLOZIN PROPANEDIOL 10 MG TABLET PO (09:01)
[2024-07-11] MEDS: PANTOPRAZOLE 40MG VIAL 40 MG IV ×2 (09:01→21:08)
[2024-07-11] MEDS: SILDENAFIL 20 MG 0.5 EACH PO (09:02)
--- NOTE | 2024-07-11 09:28 | P.PN_ITS ---
Subjective *Date: 07/11/24 *Time: 10:46 Interval history: No acute respiratory vents overnight. Patient admits continued improvement in his respiratory status Pulmonology Exam Inpatient Vital signs and Labs for Last 24 Hours: Temp Pulse Resp BP Pulse Ox O2 Del Method O2 Flow Rate 98.2 F 91 H 17 123/72 91 L Venturi Mask 9 07/11/24 08:14 07/11/24 08:14 07/11/24 08:14 07/11/24 08:14 07/11/24 08:14 07/11/24 06:57 07/11/24 06:57 FiO2 35 07/11/24 06:31 Laboratory Results - last 24 hr 07/10/24 11:16: POC Glucose 215 H 07/10/24 16:41: POC Glucose 196 H 07/10/24 20:44: POC Glucose 145 H 07/11/24 05:15: WBC 13.8 H, RBC 3.61 L, Hgb 10.5 L D, Hct 32.9 L, MCV 91.1, MCH 28.8, MCHC 31.6 L, RDW 15.2, Plt Count 338, MPV 10.6 H, Neut % (Auto) 76.4, Lymph % (Auto) 16.3, [place] % (Auto) 5.7, Eos % (Auto) 1.0, Baso % (Auto) 0.1, Neut # (Auto) 10.6 H, Lymph # (Auto) 2.3, [place] # (Auto) 0.8, Eos # (Auto) 0.1, Baso # (Auto) 0.0, Sodium 135 L, Potassium 4.2 D, Chloride 101, Carbon Dioxide 29, Anion Gap 9.2, BUN 27 H, Creatinine 0.80, Estimated Creat Clear 120, Estimated GFR 99, Est GFR ( Amer) 120, Glucose 116 H, Calcium 8.3 L, Magnesium 1.7, Total Bilirubin 0.5, AST 42, ALT 42, Alkaline Phosphatase 68, Total Protein 5.7 L, Albumin 3.0 L, Globulin 2.7, Albumin/Globulin Ratio 1.1 07/11/24 06:00: POC Glucose 107 I & O for Labs for Last 24 Hours: Intake & Output 07/08/24 07/09/24 07/10/24 07/11/24 23:59 23:59 23:59 23:59 Intake Total 795 / 795 1040 / 1040 1560 / 1560 240 / 240 Output Total 1315 / 1315 1390 / 1390 1750 / 1750 1025 / 1025 Balance -520 / -520 -350 / -350 -190 / -190 -785 / -785 Weight 180 lb 1.883 oz 181 lb 14.4 oz 187 lb 1.6 oz 185 lb 8 oz Microbiology Reports for the Last 24 Hours: Microbiology 07/09/24 13:42 Sputum - Expectorated Sputum Gram Stain - Final 07/09/24 13:42 Sputum - Expectorated Sputum Sputum Culture - Final 07/09/24 13:10 Blood Blood Culture - Preliminary NO GROWTH AFTER 24 HOURS 07/09/24 13:10 Blood Blood Culture - Preliminary NO GROWTH AFTER 24 HOURS Constitutional: Present moderate distress Head: Present normocephalic and atraumatic ENT: Present normal exam, normal oropharynx and mucous membranes moist Neck: Present normal inspection and full ROM Respiratory: Present respiratory distress, rhonchi and able to speak in complete sentences; Absent wheezes, crackles, diminished air movement or normal respiratory effort Cardiac: Present S1/S2, Tachycardia and radial pulses present GI: Present soft and distention; Absent tenderness or guarding Skin: Present intact; Absent cyanosis or jaundice Neuro: Present alert, awake and oriented x 3 Extremities: Present normal inspection; Absent clubbing or cyanosis Psychiatric: Present normal affect and cooperative Assessment and Plan *Assessment and plan (1) Acute exacerbation of chronic obstructive pulmonary disease (COPD): Status: Acute Category: Medical Code(s): J44.1 - Chronic obstructive pulmonary disease with (acute) exacerbation (2) Acute respiratory failure with hypoxia: Status: Acute Category: Medical Code(s): J96.01 - Acute respiratory failure with hypoxia (3) Community acquired pneumonia: Status: Acute Qualifiers: Laterality: unspecified laterality Qualified Code(s): J18.9 - Pneumonia, unspecified organism Category: Medical Code(s): J18.9 - Pneumonia, unspecified organism Plan Mr. Carmona is a 59-year-old male greater than [id number] smoking history, COPD, sleep apnea previously refused CPAP therapy presented to the ER with worsening respiratory distress and pulmonary was called for further evaluation and management. CTA upon admission suboptimal timing, no obvious central pulmonary embolism but right lower lobe airspace disease and consolidative changes noted. AFebrile. Hemodynamically stable. Currently receicing cefepime azithromycin and steroids and nebulization therapies. On initial examination severe respiratory distress. Oxygen desaturation noted with high flow nasal cannula 40 L 100%, escalated to BiPAP therapy with saturations maintained at 89% and above. Mini respiratory viral PCR panel negative lower extremity venous Doppler negative for DVT. Echo continued to show RV dilation and reduced RV function since 2022 likely secondary to uncontrolled sleep apnea and severe COPD. No Doppler evidence of interatrial shunt Nasal MRSA PCR negative. Sputum prelim gram-positive diplococci. CT PE protocol 07/04/2024 no evidence of pulmonary embolism. Clear lung henry with no effusions. Left lower lobe collapse. Status post bronchoscopy 07/04/2024 thick tenacious mucoid secretions from the left lower lobe suction. Airway is otherwise clear. Interval update: No acute respiratory events overnight. Stable oxygen requirements. Continue to receive levofloxacin. Repeat blood and sputum cultures no growth. Weaned to nasal cannula, tolerating well. Discontinue sildenafil Plan: Discontinue sildenafil 10 mg 3 times daily scheduled Oxygen requirement weaned to 2 L nasal cannula well tolerating well. Will closely monitor. Incentive spirometry PT OT Continue DuoNebs every 6 hours and Pulmicort every 12 scheduled Continue Mucomyst twice daily scheduled Thank you for involving pulmonary in this patient care. Will continue to follow.
[2024-07-11] MEDS: levoFLOXacin 750 MG TABLET PO (11:31)
--- NOTE | 2024-07-11 12:55 | PC.NURSE ---
REPORT GIVEN TO PAT KATHLEEN
[2024-07-11 16:26] LABS: POC Glucose,Bedside 149 (70-110)
--- NOTE | 2024-07-11 18:27 | PC.WOUNDNOTE ---
Since assuming care of patient at approximately 1300, patient has ambulated well to/from restroom multiple times this shift. Maintaining 02 stats >90% when at rest, between 88-92% when ambulating around room. Patient has had a couple nosebleeds this shift, RT notified and humidification was added to o2.
[2024-07-11 20:30] LABS: POC Glucose,Bedside 220 (70-110)
[2024-07-11] MEDS: humaLOG 100 UNITS/ML 10ML VIAL (SSI) SUBCUT (21:07)
[2024-07-11] MEDS: INSULIN GLARGINE 100 UNITS/ML 3ML FLEXPEN 25 UNIT SUBCUT (21:07)
[2024-07-11] MEDS: ATORVASTATIN 40MG TABLET 40 MG PO (21:09)
[2024-07-12] VITALS: BP 137/79; PULSE 74; PULSE 81; RESP 18; TEMP 36.6; O2SAT 97
[2024-07-12 04:00] VITALS: BP 130/84; PULSE 73; PULSE 76; RESP 18; TEMP 36.7; O2SAT 96; BMI 24.5
--- NOTE | 2024-07-12 04:03 | PC.NURSE ---
Pt is A/O X 3. He is able to ambulate short distances with use of walker but requires reminders to use walker as he often wants to go without assistive device. Pt with 02 on at 2 liters and maintaining sats above 90%. He continues to tolerate diabetic diet and reports now beginning to get his appetite back. FSBS at 9 pm was 220, covered with SS insulin per AUG. NSR on telemetry VSS for pt
[2024-07-12] MEDS: ACETYLCYSTEINE 20% 4ML VIAL 2 ML IH (06:05)
[2024-07-12] MEDS: LEVALBUTEROL 1.25MG/3ML NEB 1.25 MG IH (06:05)
[2024-07-12] MEDS: BUDESONIDE 0.5MG/2ML NEB 0.5 MG IH (06:05)
[2024-07-12] MEDS: IPRATROPIUM BROMIDE 0.5 MG/2.5ML SOLUTION IH (06:05)
[2024-07-12 06:06] VITALS: PULSE 78; PULSE 81; O2SAT 93
[2024-07-12 06:10] LABS: POC Glucose,Bedside 89 (70-110)
[2024-07-12 06:54] LABS: Basophils % 0.2 % (0.1-2.0); Eosinophils # 0.1 K/mm3 (0.0-0.4); Hematocrit 33.1 % (42.0-52.0); Hemoglobin 10.5 g/dL (14.1-18.0); Lymphocytes # 2.4 K/mm3 (0.7-4.5); Lymphocytes % 20.6 % (10-50); Mean Corpuscular HGB Conc 31.7 g/dL (31.8-35.4); Mean Corpuscular Hemoglobin 28.5 pg (27.0-31.2); Mean Corpuscular Volume 89.7 fl (80-94); Mean Platelet Volume 10.8 fl (7.4-10.4); Monocytes # 0.7 K/mm3 (0.1-1.0); Monocytes % 6.3 % (1.7-9.3); Neutrophils # 8.3 K/mm3 (1.8-7.8); Neutrophils % 71.6 % (37.0-80.0); Platelet Count 339 K/mm3 (142-424); Red Blood Count 3.69 M/mm3 (4.60-6.20); Red Cell Distribution Width 15.1 % (11.5-17.5); White Blood Count 11.6 K/mm3 (4.8-10.8)
[2024-07-12 07:07] LABS: Alanine Aminotransferase 54 U/L (12-78); Albumin Level 3.3 g/dl (3.5-5.0); Albumin/Globulin Ratio 1.1 (1.1-1.8); Alkaline Phosphatase 73 U/L (38-126); Aspartate Amino Transferase 55 U/L (17-59); Bilirubin,Total 0.5 mg/dl (0.2-1.3); Blood Urea Nitrogen 19 mg/dl (9-20); Calcium 8.7 mg/dl (8.4-10.2); Carbon Dioxide 29 mmol/L (22.0-30.0); Chloride 98 mmol/L (98-107); Creatinine Clearance Estimated 134 mL/min (50-200); Estimated Glomerular Filt Rate 116 ml/min (>60); GFR (African American) 140 ML/MIN (>60); Globulin 2.9 g/dL (1.3-3.2); Glucose 87 mg/dl (74-100); Sodium 133 mmol/L (136-145); Total Protein,Serum 6.2 g/dl (6.3-8.2)
[2024-07-12 07:08] LABS: Magnesium 1.6 mg/dl (1.6-2.3)
[2024-07-12 08:00] VITALS: BP 109/68; PULSE 110; PULSE 91; RESP 19; TEMP 36.5; O2SAT 95
--- NOTE | 2024-07-12 08:26 | EXP.DC.SUM ---
General Admission date:: 06/26/24 Discharge date: 07/12/24 HPI HPI HPI: Daniel Kwan is a 59-year-old male with a medical history significant for COPD on 2 L, severe sleep apnea, CAD with stent, hypertension, hyperlipidemia, type 2 diabetes who presents with worsening shortness of breath. He states he has not been taking his medications for many weeks and then he became increasingly short of breath over the past 2 weeks. Denies chest pain. Workup in the ED significant for a compensated ABG, D-dimer 0.85, BNP 1160. CTA chest revealed multifocal pneumonia in bilateral lungs with no evidence of PE. CXR suggests possible volume overload. On my evaluation of the patient, he is requiring Vapotherm 35 L FiO2 70%. Case discussed with ED provider and decision was made to admit patient for acute on chronic hypoxic respiratory failure secondary to community-acquired pneumonia, COPD exacerbation, and possible HFpEF exacerbation. Hospital Course Hospital Course Hospital Course: Daniel Kwan is a 59-year-old male with a medical history significant for COPD on 2 L, severe sleep apnea, CAD with stent, hypertension, hyperlipidemia, type 2 diabetes who presents with worsening shortness of breath. He states he has not been taking his medications for many weeks and then he became increasingly short of breath over the past 2 weeks. Denies chest pain. Workup in the ED significant for a compensated ABG, D-dimer 0.85, BNP 1160. CTA chest revealed multifocal pneumonia in bilateral lungs with no evidence of PE. CXR suggests possible volume overload versus pneumonia. Initially on Vapotherm, eventually required intubation. Remained on ventilator support for approximately a week. Was extubated to Vapotherm 6 days prior to discharge. Gradually weaned oxygen requirement to 2 L. Therapy evaluated patient, overall doing well. Stable to discharge home with outpatient therapy. Pulmonology assisted with care along with cardiology during admission. Given his drastic improvement, stable to discharge home with further management as an outpatient. Problems addressed as follows: #Acute hypoxic respiratory failure #Severe sepsis #Multifocal community-acquired pneumonia #Suspected ventilator/hospital-acquired pneumonia #Acute COPD exacerbation -Patient presented with respiratory failure. Necessitated significant oxygen support with gradual increase and need to intubate patient after approximately 48 hours. Was managed on ventilator with assistance of pulmonology for approximately a week. Extubated on 07/06/2024 to Vapotherm. Oxygen gradually weaned to nasal cannula. Tolerating 2 L nasal cannula on day of discharge. Patient's room air saturation on day of discharge was 80% at rest. Continues to necessitate 2 L nasal cannula continuously to maintain sats above 90%. Patient had significant mucus production. Necessitated regular suctioning. Bronchoscopy performed showing significant mucus production and plugging. Gradual improvement is production of mucus slowly decreased. Bronchoscopy 07/04/24 showed thick mucoid secretions. Treated with broad-spectrum antibiotics throughout course of admission. Has completed course of antibiotics, no longer needs antibiotics at discharge. Additional pleated steroids with no further systemic steroids needed at discharge. Recommend continuing to treat colluding Trelegy 100 inhaler day, DuoNebs 4 times as needed, and Mucinex as needed for secretion control. White count showed improvement, 11 on day of discharge. Patient afebrile for several days. Speech was evaluated after extubation, patient cleared for regular diet. Recommend pulmonary rehab after discharge to improve stamina and functionality. #CAD - Coronary artery disease is likely stable. Patient was ruled out for [place]. Cardiology was consulted. Resume, Lasix, Farxiga, Plavix, Lipitor at discharge. Holding carvedilol and lisinopril due to normotensive state. Recommend follow-up with PCP and or cardiology as an outpatient for further evaluation and possible ischemic workup as an outpatient. #Type 2 diabetes ? A1c during admission of 6.9. Managed with sliding scale insulin. Initiated on Lantus due to hyperglycemia secondary to infection and steroids. Continue Lantus at lower dose at discharge. Needs follow-up with repeat A1c in 3 months. Total time spent on discharge 32 minutes in counseling, documentation, chart review, and direct care with patient. Exam Data for Last 24 hours Vital signs and Labs for Last 24 Hours: Temp Pulse Resp BP Pulse Ox O2 Del Method O2 Flow Rate 98.0 F 110 H 18 130/84 93 L Nasal Cannula 2 07/12/24 04:00 07/12/24 08:00 07/12/24 04:00 07/12/24 04:00 07/12/24 06:06 07/12/24 06:52 07/12/24 06:52 FiO2 35 07/11/24 08:00 Laboratory Results - last 24 hr 07/11/24 16:19: POC Glucose 149 H 07/11/24 20:14: POC Glucose 220 H 07/12/24 05:21: POC Glucose 89 07/12/24 06:23: WBC 11.6 H, RBC 3.69 L, Hgb 10.5 L, Hct 33.1 L, MCV 89.7, MCH 28.5, MCHC 31.7 L, RDW 15.1, Plt Count 339, MPV 10.8 H, Neut % (Auto) 71.6, Lymph % (Auto) 20.6, [place] % (Auto) 6.3, Eos % (Auto) 1.0, Baso % (Auto) 0.2, Neut # (Auto) 8.3 H, Lymph # (Auto) 2.4, [place] # (Auto) 0.7, Eos # (Auto) 0.1, Baso # (Auto) 0.0, Sodium 133 L, Potassium 4.0, Chloride 98, Carbon Dioxide 29, Anion Gap 10.0, BUN 19 D, Creatinine 0.70, Estimated Creat Clear 134, Estimated GFR 116, Est GFR ( Amer) 140, Glucose 87, Calcium 8.7, Magnesium 1.6, Total Bilirubin 0.5, AST 55 D, ALT 54 D, Alkaline Phosphatase 73, Total Protein 6.2 L, Albumin 3.3 L, Globulin 2.9, Albumin/Globulin Ratio 1.1 I & O for Last 24 hours: Intake & Output 07/09/24 07/10/24 07/11/24 07/12/24 23:59 23:59 23:59 23:59 Intake Total 1040 / 1040 1560 / 1560 960 / 960 Output Total 1390 / 1390 1750 / 1750 1025 / 1025 0 / 0 Balance -350 / -350 -190 / -190 -65 / -65 0 / 0 Weight 82.508 kg 84.867 kg 84.141 kg 82.055 kg Microbiology Reports for the Last 24 Hours: Microbiology 07/09/24 13:10 Blood Blood Culture - Preliminary NO GROWTH AFTER 48 HOURS 07/09/24 13:10 Blood Blood Culture - Preliminary NO GROWTH AFTER 48 HOURS 07/09/24 13:42 Sputum - Expectorated Sputum Gram Stain - Final 07/09/24 13:42 Sputum - Expectorated Sputum Sputum Culture - Final Constitutional Constitutional: no acute distress, average body habitus, chronically ill appearing and cooperative *Routine HEENT Exam Head: Present normocephalic and atraumatic Eye: Present EOMI ENT: Present mucous membranes moist *Routine Neck Exam Neck: Present supple; Absent JVD *Routine Respiratory Exam Respiratory: Present prolonged expiratory phase, rhonchi, wheezes and normal respiratory effort; Absent crackles *Routine Cardiovascular Exam Cardiovascular: Present RRR, Normal S1 and Normal S2; Absent murmur or gallop *Routine Abdominal Exam Abdominal: Present soft and normoactive bowel sounds; Absent organomegaly *Routine Rectal Exam Patient deferred: visual exam *Routine Exam Patient deferred: penile exam *Routine Extremities Exam Extremities: Present pulses intact; Absent cyanosis, clubbing or edema *Routine Skin Exam Skin: Present intact and dry Comments: Significant scale extensively on extremities, worse on leg *Routine Neurological Exam Neurological: Present alert, oriented X3 and moving all extremities; Absent altered mental status Routine Psychiatric Exam Psychiatric: Present unable to assess Results Data Completed and Pending Labs on day of discharge: Labs from last 24 hours 07/12/24 07/12/24 07/11/24 06:23 05:21 20:14 WBC 11.6 H RBC 3.69 L Hgb 10.5 L Hct 33.1 L MCV 89.7 MCH 28.5 MCHC 31.7 L RDW 15.1 Plt Count 339 MPV 10.8 H Neut % (Auto) 71.6 Lymph % (Auto) 20.6 [place] % (Auto) 6.3 Eos % (Auto) 1.0 Baso % (Auto) 0.2 Neut # (Auto) 8.3 H Lymph # (Auto) 2.4 [place] # (Auto) 0.7 Eos # (Auto) 0.1 Baso # (Auto) 0.0 Sodium 133 L Potassium 4.0 Chloride 98 Carbon Dioxide 29 Anion Gap 10.0 BUN 19 D Creatinine 0.70 Estimated Creat Clear 134 Estimated GFR 116 Est GFR ( Amer) 140 Glucose 87 POC Glucose 89 220 H Calcium 8.7 Magnesium 1.6 Total Bilirubin 0.5 AST 55 D ALT 54 D Alkaline Phosphatase 73 Total Protein 6.2 L Albumin 3.3 L Globulin 2.9 Albumin/Globulin Ratio 1.1 07/11/24 16:19 WBC RBC Hgb Hct MCV MCH MCHC RDW Plt Count MPV Neut % (Auto) Lymph % (Auto) [place] % (Auto) Eos % (Auto) Baso % (Auto) Neut # (Auto) Lymph # (Auto) [place] # (Auto) Eos # (Auto) Baso # (Auto) Sodium Potassium Chloride Carbon Dioxide Anion Gap BUN Creatinine Estimated Creat Clear Estimated GFR Est GFR ( Amer) Glucose POC Glucose 149 H Calcium Magnesium Total Bilirubin AST ALT Alkaline Phosphatase Total Protein Albumin Globulin Albumin/Globulin Ratio Preliminary micro results at discharge 07/09/24 13:10 Blood Culture - Preliminary Blood NO GROWTH AFTER 48 HOURS 07/09/24 13:10 Blood Culture - Preliminary Blood NO GROWTH AFTER 48 HOURS DS: Diagnosis Discharge Diagnosis (1) Pneumonia: Status: Acute Code(s): J18.9 - Pneumonia, unspecified organism Qualifiers: Laterality: right Lung location: lower lobe of lung Pneumonia type: due to other aerobic Gram-negative bacteria Qualified Code(s): J15.69 - Pneumonia due to other Gram-negative bacteria (2) Severe sepsis: Status: Acute Code(s): A41.9 - Sepsis, unspecified organism; R65.20 - Severe sepsis without septic shock (3) Acute respiratory failure with hypoxia: Status: Acute Code(s): J96.01 - Acute respiratory failure with hypoxia (4) Acute exacerbation of chronic obstructive pulmonary disease (COPD): Status: Acute Code(s): J44.1 - Chronic obstructive pulmonary disease with (acute) exacerbation (5) Diabetes mellitus: Status: Acute Code(s): E11.9 - Type 2 diabetes mellitus without complications Qualifiers: Diabetes mellitus complication status: without complication Diabetes mellitus digital camera technician insulin use: without digital camera technician use Diabetes mellitus type: type 2 Qualified Code(s): E11.9 - Type 2 diabetes mellitus without complications (6) Polycythemia vera: Status: Acute Code(s): D45 - Polycythemia vera (7) Pulmonary emphysema: Status: Acute Code(s): J43.9 - Emphysema, unspecified Qualifiers: Emphysema type: centrilobular Qualified Code(s): J43.2 - Centrilobular emphysema (8) RVF (right ventricular failure): Status: Acute Code(s): I50.810 - Right heart failure, unspecified (9) CAD (coronary artery disease): Status: Acute Code(s): I25.10 - Atherosclerotic heart disease of [place] coronary artery without angina pectoris Qualifiers: Associated angina: without angina Coronary Disease-Associated Artery/Lesion type: [place] artery [place] vs. transplanted heart: [place] heart Qualified Code(s): I25.10 - Atherosclerotic heart disease of [place] coronary artery without angina pectoris (10) Hypertension: Status: Acute Code(s): I10 - Essential (primary) hypertension Qualifiers: Hypertension type: unspecified Qualified Code(s): I10 - Essential (primary) hypertension Meds Home Medications and Allergies Home Medications ?Medication ?Instructions ?Recorded ?Confirmed ?Type blood-glucose meter (Blood Glucose #1 ea 01/15/23 06/26/24 Rx Monitoring kit) blood sugar diagnostic (Blood #50 ea 01/19/23 06/26/24 Rx Glucose Test strips) aspirin 325 mg tablet 325 mg PO DAILY 04/09/23 06/26/24 History clopidogrel 75 mg tablet (Plavix) 75 mg PO DAILY #90 tabs 06/24/23 06/26/24 Rx furosemide 40 mg tablet (Lasix) 40 mg PO DAILY #30 tabs 07/01/23 06/26/24 Rx carvedilol 25 mg tablet 25 mg PO BID #90 tabs 12/20/23 06/26/24 Rx cholecalciferol (vitamin D3) 50 50 mcg PO DAILY #90 caps 03/03/24 06/26/24 Rx mcg (2,000 unit) capsule dapagliflozin propanediol 10 mg 10 mg PO DAILY #90 tabs 03/03/24 06/26/24 Rx tablet (Farxiga) magnesium oxide 400 mg PO DAILY #90 tabs 03/03/24 06/26/24 Rx atorvastatin 40 mg tablet (Lipitor) 40 mg PO DAILY #30 tabs 05/24/24 06/26/24 Rx albuterol sulfate 90 mcg/actuation 2 puff inhalation QIDP PRN 06/26/24 06/26/24 History aerosol inhaler Shortness Of Breath lisinopril 40 mg tablet 40 mg PO DAILY 06/26/24 06/26/24 History polyethylene glycol 3350 17 gram 17 g PO DAILY 07/01/24 07/01/24 History oral powder packet (Miralax) fluticasone fur. 100 mcg-umeclid 1 inh inhalation DAILY 30 days #60 07/12/24 Rx 62.5 mcg-vilant 25 mcg ea inhalat.powder (Trelegy Ellipta) guaifenesin 600 mg tablet, 600 mg PO BID #60 tabs 07/12/24 Rx extended release 12 hr (Mucinex) insulin glargine 100 unit/mL (3 15 unit (0.15 mL) SQ HS #15 mL 07/12/24 Rx mL) subcutaneous pen (Lantus Solostar U-100 Insulin) ipratropium 0.5 mg-albuterol 3 mg 3 ml inhalation QIDP PRN Shortness 07/12/24 Rx (2.5 mg base)/3 mL nebulization Of Breath #180 mL soln pantoprazole 40 mg tablet,delayed 40 mg PO HS #30 tabs 07/12/24 Rx release pen needle, diabetic 29 gauge x #100 ea 07/12/24 Rx 3/8 amlodipine 5 mg tablet See Rx Instructions .Route 07/13/24 Rx .COMPLEX #90 tabs New Prescriptions to Start Prescriptions: [id number] [Trelegy Ellipta] Sanjay,Long guaifenesin [Mucinex] Sanjay,Long insulin glargine [Lantus Solostar U-100 Insulin] Sanjay,Long ipratropium-albuterol Sanjay,Long pantoprazole Sanjay,Long pen needle, diabetic Sanjay,Long Allergies Allergy/AdvReac Type Severity Reaction Status Date / Time acetaminophen (From Tylenol) Allergy Intermediate Rash Verified 05/24/24 09:25 Discharge Plan Disposition Patient Disposition: Home, Self-Care Condition: Fair Discharge Order Discharge Orders: Discharge Order (Routine); Ordered 07/12/24 Ordered By: Long Grace Follow up Plan Follow up with: Benja Shaw MD [Physician] - 07/25/24 1:00 pm Angélica Wayne APRN [Primary Care Provider] - 07/20/24 1:00 pm Olivier Mendoza MD [Staff Physician] - 07/24/24 2:45 pm Prescriptions/Medication Reconciliation: New Trelegy Ellipta 100-62.5-25 mcg Blister With Device 1 inh inhalation DAILY 30 Days Qty: 60 0RF insulin glargine [Lantus Solostar U-100 Insulin] 100 unit/mL (3 mL) Insulin Pen 15 unit SQ HS Qty: 15 0RF (DME) pen needle, diabetic 29 gauge x 3/8 needle See Rx Instructions .Route Qty: 100 0RF Rx Instructions: As directed pantoprazole 40 mg tablet,delayed release (DR/EC) 40 mg PO HS Qty: 30 0RF guaifenesin [Mucinex] 600 mg tablet extended release 12hr 600 mg PO BID Qty: 60 0RF Continued furosemide [Lasix] 40 mg tablet 40 mg PO DAILY Qty: 30 11RF atorvastatin [Lipitor] 40 mg tablet 40 mg PO DAILY Qty: 30 5RF (DME) blood-glucose meter [Blood Glucose Monitoring] Kit See Rx Instructions .Route Qty: 1 0RF Rx Instructions: As directed (DME) Blood Glucose Test Strip See Rx Instructions .Route Qty: 50 3RF Rx Instructions: As directed 2 times a day clopidogrel [Plavix] 75 mg tablet 75 mg PO DAILY Qty: 90 4RF dapagliflozin propanediol [Farxiga] 10 mg tablet 10 mg PO DAILY Qty: 90 3RF magnesium oxide 400 mg magnesium tablet 400 mg PO DAILY Qty: 90 0RF cholecalciferol (vitamin D3) 50 mcg (2,000 unit) capsule 50 mcg PO DAILY Qty: 90 3RF aspirin 325 mg Tablet 325 mg PO DAILY albuterol sulfate 90 mcg/actuation HFA aerosol inhaler 2 puff inhalation QIDP PRN (Reason: Shortness Of Breath) polyethylene glycol 3350 [Miralax] 17 gram Powder In Packet 17 g PO DAILY Changed ipratropium-albuterol 0.5 mg-3 mg(2.5 mg base)/3 mL solution for nebulization 3 ml inhalation QIDP PRN (Reason: Shortness Of Breath) Qty: 180 0RF Held carvedilol 25 mg tablet 25 mg PO BID Qty: 90 1RF Hold Instructions: pending follow-up with cardiology Patient Comments: TAKE 1 TABLET BY MOUTH TWICE DAILY WITH FOOD lisinopril 40 mg tablet 40 mg PO DAILY Hold Instructions: pending follow-up with cardiology Discontinued Anoro Ellipta 62.5-25 mcg/actuation blister with device 1 inh inhalation DAILY 90 Days Qty: 180 2RF No Action amlodipine 5 mg tablet See Rx Instructions .ROUTE .COMPLEX Qty: 90 3RF Dose Instruction: Take 1 tablet by mouth once daily Rx Instructions: Take 1 tablet by mouth once daily Other Ambulatory Orders: Home Medical Equipment (Routine) Location: None Selected Ordered By: Long Grace Pulmonary Rehab Evaluation (Routine) Timeframe: 2 Days Facility: [facility] - Location: Pulmonary Rehab Services Ordered By: Long Grace Problem Reconciliation Problems Reviewed?: Yes Patient Discharge Instructions ACTIVITY: Continue current activity DIET: continue same diet Patient Instructions: DI for Chronic Obstructive Pulmonary Disease, DI for Pneumonia -- Adult, DI for Sepsis -- Adult, Ventilator-Associated Pneumonia, DI for Gastrointestinal Bleeding, Catheter-Associated Urinary Tract Infection Print Language: [place] Providers Primary Care Provider: Angélica Wayne Admit Provider: Harvey Comer Attending Provider: Harvey Comer
[2024-07-12] MEDS: DAPAGLIFLOZIN PROPANEDIOL 10 MG TABLET PO (08:58)
[2024-07-12] MEDS: guaiFENesin 200MG/10ML SYRUP UDC 200 MG PO (08:58)
[2024-07-12] MEDS: ASPIRIN EC 81MG TABLET 81 MG PO (08:58)
[2024-07-12] MEDS: ENOXAPARIN 40MG/0.4ML SYRINGE 40 MG SUBCUT (08:59)
[2024-07-12] MEDS: predniSONE 20MG TAB 40 MG PO (08:59)
[2024-07-12] MEDS: PANTOPRAZOLE 40MG VIAL 40 MG IV (08:59)
[2024-07-12] MEDS: MAGNESIUM SULFATE IN WATER 2 GM/50 ML PIGGYBACK IV ×2 (09:37→10:34)
--- NOTE | 2024-07-12 09:39 | EXP.PULM.PN ---
Subjective *Date: 07/12/24 *Time: 12:49 Interval history: No acute respiratory vents overnight. Patient admits continued improvement in his respiratory symptoms. Pulmonology Exam Inpatient Vital signs and Labs for Last 24 Hours: Temp Pulse Resp BP Pulse Ox O2 Del Method O2 Flow Rate 98.0 F 110 H 18 130/84 93 L Nasal Cannula 2 07/12/24 04:00 07/12/24 08:00 07/12/24 04:00 07/12/24 04:00 07/12/24 06:06 07/12/24 06:52 07/12/24 06:52 FiO2 35 07/11/24 08:00 Laboratory Results - last 24 hr 07/11/24 16:19: POC Glucose 149 H 07/11/24 20:14: POC Glucose 220 H 07/12/24 05:21: POC Glucose 89 07/12/24 06:23: WBC 11.6 H, RBC 3.69 L, Hgb 10.5 L, Hct 33.1 L, MCV 89.7, MCH 28.5, MCHC 31.7 L, RDW 15.1, Plt Count 339, MPV 10.8 H, Neut % (Auto) 71.6, Lymph % (Auto) 20.6, [place] % (Auto) 6.3, Eos % (Auto) 1.0, Baso % (Auto) 0.2, Neut # (Auto) 8.3 H, Lymph # (Auto) 2.4, [place] # (Auto) 0.7, Eos # (Auto) 0.1, Baso # (Auto) 0.0, Sodium 133 L, Potassium 4.0, Chloride 98, Carbon Dioxide 29, Anion Gap 10.0, BUN 19 D, Creatinine 0.70, Estimated Creat Clear 134, Estimated GFR 116, Est GFR ( Amer) 140, Glucose 87, Calcium 8.7, Magnesium 1.6, Total Bilirubin 0.5, AST 55 D, ALT 54 D, Alkaline Phosphatase 73, Total Protein 6.2 L, Albumin 3.3 L, Globulin 2.9, Albumin/Globulin Ratio 1.1 I & O for Labs for Last 24 Hours: Intake & Output 07/09/24 07/10/24 07/11/24 07/12/24 23:59 23:59 23:59 23:59 Intake Total 1040 / 1040 1560 / 1560 960 / 960 Output Total 1390 / 1390 1750 / 1750 1025 / 1025 0 / 0 Balance -350 / -350 -190 / -190 -65 / -65 0 / 0 Weight 181 lb 14.4 oz 187 lb 1.6 oz 185 lb 8 oz 180 lb 14.4 oz Microbiology Reports for the Last 24 Hours: Microbiology 07/09/24 13:10 Blood Blood Culture - Preliminary NO GROWTH AFTER 48 HOURS 07/09/24 13:10 Blood Blood Culture - Preliminary NO GROWTH AFTER 48 HOURS 07/09/24 13:42 Sputum - Expectorated Sputum Gram Stain - Final 07/09/24 13:42 Sputum - Expectorated Sputum Sputum Culture - Final Constitutional: Present moderate distress Head: Present normocephalic and atraumatic ENT: Present normal exam, normal oropharynx and mucous membranes moist Neck: Present normal inspection and full ROM Respiratory: Present respiratory distress, rhonchi and able to speak in complete sentences; Absent wheezes, crackles, diminished air movement or normal respiratory effort Cardiac: Present S1/S2, Tachycardia and radial pulses present GI: Present soft and distention; Absent tenderness or guarding Skin: Present intact; Absent cyanosis or jaundice Neuro: Present alert, awake and oriented x 3 Extremities: Present normal inspection; Absent clubbing or cyanosis Psychiatric: Present normal affect and cooperative Assessment and Plan *Assessment and plan (1) Acute exacerbation of chronic obstructive pulmonary disease (COPD): Status: Acute Category: Medical Code(s): J44.1 - Chronic obstructive pulmonary disease with (acute) exacerbation (2) Acute respiratory failure with hypoxia: Status: Acute Category: Medical Code(s): J96.01 - Acute respiratory failure with hypoxia (3) Community acquired pneumonia: Status: Acute Qualifiers: Laterality: unspecified laterality Qualified Code(s): J18.9 - Pneumonia, unspecified organism Category: Medical Code(s): J18.9 - Pneumonia, unspecified organism Plan Mr. Carmona is a 59-year-old male greater than [id number] smoking history, COPD, sleep apnea previously refused CPAP therapy presented to the ER with worsening respiratory distress and pulmonary was called for further evaluation and management. CTA upon admission suboptimal timing, no obvious central pulmonary embolism but right lower lobe airspace disease and consolidative changes noted. AFebrile. Hemodynamically stable. Currently receicing cefepime azithromycin and steroids and nebulization therapies. On initial examination severe respiratory distress. Oxygen desaturation noted with high flow nasal cannula 40 L 100%, escalated to BiPAP therapy with saturations maintained at 89% and above. Mini respiratory viral PCR panel negative lower extremity venous Doppler negative for DVT. Echo continued to show RV dilation and reduced RV function since 2022 likely secondary to uncontrolled sleep apnea and severe COPD. No Doppler evidence of interatrial shunt Nasal MRSA PCR negative. Sputum prelim gram-positive diplococci. CT PE protocol 07/04/2024 no evidence of pulmonary embolism. Clear lung henry with no effusions. Left lower lobe collapse. Status post bronchoscopy 07/04/2024 thick tenacious mucoid secretions from the left lower lobe suction. Airway is otherwise clear. Interval update: No significant respiratory events overnight. Sildenafil discontinued yesterday. Continue treatment 2 L nasal cannula supplementation. No desaturations with 6-minute walk testing on 2 L. Plan: -Trelegy inhaler along with DuoNebs 4 times daily as needed Continue oxygen supplementation to maintain O2 saturation goal of 90% and above Mucinex oral twice daily as needed Continue levofloxacin to complete a total of 5-day course. Repeat blood and sputum cultures no growth so far. Incentive spirometry PT OT Thank you for involving pulmonary in this patient care. Will continue to follow.
[2024-07-12] MEDS: levoFLOXacin 750 MG TABLET PO (10:37)
[2024-07-12 11:07] LABS: POC Glucose,Bedside 214 (70-110)
[2024-07-12] MEDS: humaLOG 100 UNITS/ML 10ML VIAL (SSI) SUBCUT (11:25)
[2024-07-12 11:58] VITALS: BP 121/79; PULSE 92; RESP 17; TEMP 36.5; O2SAT 94
--- NOTE | 2024-07-12 13:07 | HMH.PHAINT1 ---
Pharmacy Intervention Comments: COUNSELED PATIENT ON MEDICATIONS PRIOR TO DISCHARGE. PATIENT VERBALIZED UNDERSTANDING.
--- NOTE | 2024-07-12 14:00 | PC.NURSE ---
Pt room air sat while resting is 80%
--- NOTE | 2024-07-12 14:10 | CARE MANAGER ---
Patient Choice signed for [facility]. Patient qualifies for continuous supplemental home O2 with saturations of 80% on RA at rest. Order/clinical faxed and portable will be brought to the hospital prior to discharge.
--- NOTE | 2024-07-13 10:12 | SW/DCPLANNER ---
Spoke with patient on the phone. Patient stated that he is doing good and trying to get settled into the house again. Patient stated that he is aware of his upcoming appointments and that they were able to warp picker part of his medicine from [facility] and that they were going back today to pick the rest up. Patient stated that he doesnt have any concerns or questions at this time. Charleen Sevilla
== END 2024-07-12 15:05 | disposition home or self-care (01) | DRG 207 ==
LOC: ER 14:11 → 2ND 15:12 → ICU 06-27 11:56 → 2ND 07-11 11:39
PROVIDERS: Emergency Medicine; Internal Medicine Adolescent Medicine; Internal Medicine Pulmonary Disease; Nurse Practitioner Acute Care; Nurse Practitioner Family; Admitting Provider Student in an Organized Health Care Education/Training Program; Emergency Provider Emergency Medicine; PCP Nurse Practitioner Family; Visit Provider Student in an Organized Health Care Education/Training Program
PROC: 0B9J8ZX Drainage of Left Lower Lung Lobe, Via Natural or Artificial Opening Endoscopic, Diagnostic (ICD-10-PCS; principal; 2024-07-04 14:00)
DX: J96.01 Acute respiratory failure with hypoxia (principal); J18.9 Pneumonia, unspecified organism; A41.9 Sepsis, unspecified organism; R65.20 Severe sepsis without septic shock; J44.1 Chronic obstructive pulmonary disease with (acute) exacerbation; I50.811 Acute right heart failure; E11.9 Type 2 diabetes mellitus without complications; D45 Polycythemia vera; Z79.4 Long term (current) use of insulin; Z79.899 Other long term (current) drug therapy; Z99.81 Dependence on supplemental oxygen; F17.210 Nicotine dependence, cigarettes, uncomplicated; I25.10 Atherosclerotic heart disease of native coronary artery without angina pectoris; I11.0 Hypertensive heart disease with heart failure; K59.00 Constipation, unspecified; G47.33 Obstructive sleep apnea (adult) (pediatric)
CPT/HCPCS: 36415; 71045; 71275; 74018; 80053; 80061; 81001; 82272; 82803; 82962; 83036; 83605; 83735; 83880; 84100; 84145; 84484; 85007; 85025; 85378; 85384; 85610; 85730; 86140; 87040; 87070; 87081; 87102; 87116; 87186; 87205; 87206; 87631; 89051; 92610; 93005; 93306; 93970; 94002; 94003; 94640; 94660; 94667; 94668; 94760; 94761; 97110; 97116; 97163; 97166; 97530; 99291; G0238; G0328; J0330; J0360; J0456; J0696; J1250; J1650; J1939; J1940; J1956; J2250; J2704; J2919; J3010; J3475; J7030; J7050; J7120; J7613; J7614; J7620; J7644; Q9967

== ENCOUNTER 2024-07-25 09:17 | Outpatient (CLI) | payer BC, SELFPAY ==
[2024-07-25 09:47] LABS: Basophils % 0.4 % (0.1-2.0); Eosinophils # 0.5 K/mm3 (0.0-0.4); Eosinophils % 6.1 % (0.1-12.0); Hematocrit 31.8 % (42.0-52.0); Hemoglobin 9.8 g/dL (14.1-18.0); Lymphocytes # 1.8 K/mm3 (0.7-4.5); Lymphocytes % 22.7 % (10-50); Mean Corpuscular HGB Conc 30.8 g/dL (31.8-35.4); Mean Corpuscular Hemoglobin 28.9 pg (27.0-31.2); Mean Corpuscular Volume 93.8 fl (80-94); Mean Platelet Volume 10.1 fl (7.4-10.4); Monocytes # 0.5 K/mm3 (0.1-1.0); Neutrophils # 5.1 K/mm3 (1.8-7.8); Neutrophils % 64.3 % (37.0-80.0); Platelet Count 237 K/mm3 (142-424); Red Blood Count 3.39 M/mm3 (4.60-6.20); Red Cell Distribution Width 16.6 % (11.5-17.5); White Blood Count 7.9 K/mm3 (4.8-10.8)
== END 2024-07-25 23:59 | disposition home or self-care (01) ==
LOC: LAB 09:18
PROVIDERS: PCP Nurse Practitioner Family; Visit Provider Internal Medicine
DX: R06.09 Other forms of dyspnea (principal); E78.2 Mixed hyperlipidemia; E11.9 Type 2 diabetes mellitus without complications; Z79.84 Long term (current) use of oral hypoglycemic drugs; Z79.85 Long-term (current) use of injectable non-insulin antidiabetic drugs
CPT/HCPCS: 36415; 85025

== ENCOUNTER 2024-07-25 13:44 | Outpatient (RCR) | payer BC, SELFPAY | END 2024-09-27 15:00 | disposition home or self-care (01) | LOC: PULREHAB 13:44 | PROVIDERS: Visit Provider Internal Medicine Pulmonary Disease | DX: J44.9 Chronic obstructive pulmonary disease, unspecified (principal) | CPT/HCPCS: 94626 ==

== ENCOUNTER 2024-08-07 09:02 | Outpatient (CLI) | payer BC, SELFPAY ==
--- NOTE | 2024-08-07 09:07 | CA_ITS ---
APPROVED REPORT EXAM: Limited 2D and color flow Echocardiogram Avian Keeper: RT Yaima(R) Ht: 6 ft 0 in Wt: 200lbs BSA: 2.13 BP: 114/66 mmHg Indications: dyspnea, COPD, smoker, HTN, DM, SOB, WHITE, E[place]RA[place], CAD, HFpEF. Ordered as limited for EF assessment 2D Dimensions EF AP4 61.30 % GL Strain -19.7 % M-Mode Dimensions RVDd 3.05 cm (0.9-2.6) LA Diam 3.75 cm (1.9-4.0) LVDd 5.27 cm (3.5-5.7) LVDs 3.77 cm (3.5-5.7) IVSd 0.97 cm (0.6-1.1) PWd 0.83 cm (0.6-1.1) EF (Teich) 54.50% FS 28.50% EDV (Teich) 133.60 mL ESV (Teich) 60.80 mL LV Diastology E Decel Time 150 (160-240 msec) E/A Ratio 0.8 Mitral Valve MV E Max Pablo. 73.0 (40-130 cm/s) MV A Velocity 88.0 (40-130 cm/s) E/A Ratio 0.83 MV PHT 44.0 ms Other Information Study Quality: Fair Conclusion This is a limited TTE to evaluate for LV systolic function. Limited windows are obtained. The left ventricle is normal in size. There is increased LV wall thickness. There is normal global LV systolic function. There are no regional wall motion abnormalities. LVEF is 60%. Electronically signed by : Ivis Mendoza MD 08/07/2024 12:42:04
== END 2024-08-07 23:59 | disposition home or self-care (01) ==
LOC: RT 09:04
PROVIDERS: PCP Nurse Practitioner Family; Visit Provider Internal Medicine
DX: I11.0 Hypertensive heart disease with heart failure (principal); I25.10 Atherosclerotic heart disease of native coronary artery without angina pectoris; I50.810 Right heart failure, unspecified; R06.09 Other forms of dyspnea; J44.1 Chronic obstructive pulmonary disease with (acute) exacerbation; E11.9 Type 2 diabetes mellitus without complications; E78.2 Mixed hyperlipidemia; D45 Polycythemia vera; F17.210 Nicotine dependence, cigarettes, uncomplicated
CPT/HCPCS: 93308

== ENCOUNTER 2024-08-22 13:35 | Outpatient (CLI) | payer BC, SELFPAY ==
[2024-08-22 13:57] LABS: Basophils # 0.1 K/mm3 (0-0.2); Basophils % 0.5 % (0.1-2.0); Eosinophils # 0.3 K/mm3 (0.0-0.4); Eosinophils % 2.9 % (0.1-12.0); Hematocrit 34.4 % (42.0-52.0); Hemoglobin 10.3 g/dL (14.1-18.0); Lymphocytes # 2.8 K/mm3 (0.7-4.5); Lymphocytes % 24.5 % (10-50); Mean Corpuscular HGB Conc 29.9 g/dL (31.8-35.4); Mean Corpuscular Hemoglobin 24.9 pg (27.0-31.2); Mean Corpuscular Volume 83.3 fl (80-94); Mean Platelet Volume 9.5 fl (7.4-10.4); Monocytes # 0.9 K/mm3 (0.1-1.0); Monocytes % 7.4 % (1.7-9.3); Neutrophils # 7.4 K/mm3 (1.8-7.8); Neutrophils % 64.4 % (37.0-80.0); Platelet Count 326 K/mm3 (142-424); Red Blood Count 4.13 M/mm3 (4.60-6.20); Red Cell Distribution Width 18.2 % (11.5-17.5); White Blood Count 11.6 K/mm3 (4.8-10.8)
[2024-08-22 14:54] LABS: Chloride 91 mmol/L (98-107)
[2024-08-22 14:55] LABS: Potassium 4.2 mmoL/L (3.5-5.1); Sodium 135 mmol/L (136-145)
[2024-08-22 14:58] LABS: Anion Gap 15.2 mEq/L (5-15); Blood Urea Nitrogen 18 mg/dl (9-20); Calcium 9.2 mg/dl (8.4-10.2); Carbon Dioxide 33 mmol/L (22.0-30.0); Estimated Glomerular Filt Rate 99 ml/min (>60); GFR (African American) 120 ML/MIN (>60); Glucose 292 mg/dl (74-100)
== END 2024-08-22 23:59 | disposition home or self-care (01) ==
LOC: LAB 13:36
PROVIDERS: PCP Nurse Practitioner Family; Visit Provider Internal Medicine
DX: I25.10 Atherosclerotic heart disease of native coronary artery without angina pectoris (principal); I10 Essential (primary) hypertension; E78.2 Mixed hyperlipidemia; R06.00 Dyspnea, unspecified
CPT/HCPCS: 36415; 80048; 85025

== ENCOUNTER 2024-09-21 12:34 | Outpatient (CLI) | payer OTHER, SELFPAY ==
[2024-09-21] MEDS: ALBUTEROL 0.083% 2.5 MG/3 ML NEB IH (13:52)
== END 2024-09-21 23:59 | disposition home or self-care (01) ==
LOC: RT 12:36
PROVIDERS: PCP Nurse Practitioner Family; Visit Provider Internal Medicine Pulmonary Disease
DX: J44.9 Chronic obstructive pulmonary disease, unspecified (principal); F17.210 Nicotine dependence, cigarettes, uncomplicated
CPT/HCPCS: 94060; 94618; 94726; 94729; J7613

== ENCOUNTER 2024-09-25 13:49 | Outpatient (CLI) | payer OTHER, SELFPAY ==
[2024-09-25 14:09] LABS: Anti-Centromere B Antibodies ND; Anti-DNA (DS) Ab Qn ND; Anti-Jo-1 ND; Antichromatin Antibodies ND; Antiscleroderma-70 Antibodies ND; RNP Antibodies ND; Sjogren's Anti-SS-A ND; Sjogren's Anti-SS-B ND
[2024-09-25 14:51] LABS: Basophils # 0.1 K/mm3 (0-0.2); Basophils % 0.7 % (0.1-2.0); Eosinophils # 0.3 K/mm3 (0.0-0.4); Eosinophils % 3.4 % (0.1-12.0); Hematocrit 35.1 % (42.0-52.0); Hemoglobin 10.1 g/dL (14.1-18.0); Lymphocytes % 21.3 % (10-50); Mean Corpuscular HGB Conc 28.8 g/dL (31.8-35.4); Mean Corpuscular Hemoglobin 22.3 pg (27.0-31.2); Mean Corpuscular Volume 77.5 fl (80-94); Mean Platelet Volume 10.2 fl (7.4-10.4); Monocytes # 0.8 K/mm3 (0.1-1.0); Monocytes % 8.5 % (1.7-9.3); Neutrophils # 6.3 K/mm3 (1.8-7.8); Neutrophils % 65.8 % (37.0-80.0); Platelet Count 289 K/mm3 (142-424); Red Blood Count 4.53 M/mm3 (4.60-6.20); Red Cell Distribution Width 19.5 % (11.5-17.5); White Blood Count 9.6 K/mm3 (4.8-10.8)
[2024-09-25 15:31] LABS: C-Reactive Protein 3.4 mg/L (0-4)
[2024-09-25 17:08] LABS: Anion Gap 11.6 mEq/L (5-15); Blood Urea Nitrogen 18 mg/dl (9-20); Calcium 8.5 mg/dl (8.4-10.2); Carbon Dioxide 34 mmol/L (22.0-30.0); Chloride 92 mmol/L (98-107); Estimated Glomerular Filt Rate 69 ml/min (>60); GFR (African American) 83 ML/MIN (>60); Glucose 318 mg/dl (74-100); Magnesium 1.5 mg/dl (1.6-2.3); Potassium 4.6 mmoL/L (3.5-5.1); Sodium 133 mmol/L (136-145)
[2024-09-26 14:36] LABS: Antinuclear Antibodies (ANA) Negative (Negative)
[2024-09-28 00:06] LABS: Anti-CCP Abs,IgG and IgA (RDL) < 20 Units (<20)
[2024-09-30 01:14] LABS: Rheumatoid Factor IGM < 7 U (<7)
== END 2024-09-25 23:59 | disposition home or self-care (01) ==
LOC: LAB 13:51
PROVIDERS: Internal Medicine Pulmonary Disease; PCP Nurse Practitioner Family; Visit Provider Internal Medicine
DX: J84.9 Interstitial pulmonary disease, unspecified (principal); R06.09 Other forms of dyspnea; J44.1 Chronic obstructive pulmonary disease with (acute) exacerbation; I11.0 Hypertensive heart disease with heart failure; I50.810 Right heart failure, unspecified; I25.10 Atherosclerotic heart disease of native coronary artery without angina pectoris; F17.210 Nicotine dependence, cigarettes, uncomplicated; D45 Polycythemia vera
CPT/HCPCS: 36415; 80048; 83735; 85025; 86038; 86140; 86200; 86431

== ENCOUNTER 2024-10-16 14:44 | Outpatient (CLI) | payer OTHER, SELFPAY ==
[2024-10-16 13:05] LABS: Microscopic, Urine URINE MICROSCOPIC (MICROSCOPIC)
[2024-10-16 13:37] LABS: Appearance,Urine CLEAR (Clear); Bilirubin,Urine Negative (Negative); Blood, Urine Negative (Negative); Color,Urine YELLOW (Yellow); Glucose,Urine (UA) Negative (Negative); Ketones,Urine Negative (Negative); Leukocyte Esterase,Urine Negative (Negative); Nitrate,Urine Negative (Negative); PH,Urine 5.5 (5.0-8.5); Protein,Urine Negative (Negative); Specific Gravity, Urine 1.015 (1.005-1.030); Urobilinogen,Urine 0.2 EU/dl (0.2)
[2024-10-16 13:51] LABS: Chloride 95 mmol/L (98-107); Potassium 5.2 mmoL/L (3.5-5.1); Sodium 136 mmol/L (136-145)
[2024-10-16 13:52] LABS: Creatinine,Urine Random 29 mg/dL (Not Estab.)
[2024-10-16 13:54] LABS: Anion Gap 12.2 mEq/L (5-15); Blood Urea Nitrogen 18 mg/dl (9-20); Carbon Dioxide 34 mmol/L (22.0-30.0); Estimated Glomerular Filt Rate 77 ml/min (>60); GFR (African American) 93 ML/MIN (>60); Iron 45 ug/dL (49-181)
[2024-10-16 13:55] LABS: Calcium 8.9 mg/dl (8.4-10.2); Chol/HDL Ratio 3.1 (1-3.5); Cholesterol 95 mg/dl (140-200); Glucose 246 mg/dl (74-100); HDL Cholesterol 31 mg/dl (40-60); Magnesium 1.5 mg/dl (1.6-2.3); Triglycerides 110 mg/dl (30-150); VLDL Cholesterol 22 mg/dL (0-40)
[2024-10-16 14:06] LABS: Direct LDL Cholesterol 47.85 mg/dL (100-129)
[2024-10-16 14:10] LABS: Total Iron Binding Capacity 526 ug/dL (261-462)
[2024-10-16 14:11] LABS: 25-OH Vitamin D, Total 37.9 ng/mL (30-100)
[2024-10-16 14:18] LABS: Hyaline Casts,Urine OCC #/lpf (0)
[2024-10-16 14:19] LABS: Bacteria,Urine Trace /lpf; Squamous Epithelial Cell,Urine Occasional #/hpf (0-5)
[2024-10-16 14:30] LABS: Ferritin 6.23 ng/ml (17.9-464)
[2024-10-16 14:43] LABS: Hemoglobin A1C 10.4 % (4.0-6.0)
== END 2024-10-16 23:59 | disposition home or self-care (01) ==
LOC: LAB.DROPOF 14:44
PROVIDERS: PCP Nurse Practitioner Family; Visit Provider Nurse Practitioner Family
DX: E55.9 Vitamin D deficiency, unspecified (principal); E11.9 Type 2 diabetes mellitus without complications; D64.9 Anemia, unspecified; I10 Essential (primary) hypertension; E78.2 Mixed hyperlipidemia
CPT/HCPCS: 80048; 80061; 81001; 82043; 82306; 82570; 82728; 83036; 83540; 83550; 83735; 87086

== ENCOUNTER 2024-12-19 07:06 | Outpatient (CLI) | payer OTHER, SELFPAY ==
--- OUTSIDE RECORDS SUMMARY | 2024-12-19 07:08 | XMS_ITS | Referral Summary ---
Author Organization [facility] Address [address] [place] [address] Care Team Providers Care Manager Leadership Development Name Role Phone Tu Leiva MD Primary Care Provider [phone] Allergies Active Allergy Reactions Criticality Noted Date Comments Acetaminophen Flushing,Hives 01/13/2013 Medications aspirin 81 MG TABS Take 1 tablet by mouth daily. 30 tablet 6 01/13/2013 Active benazepril 40 MG TABS Take 1 tablet by mouth daily. ONE DAILY FOR BLOOD PRESSURE 30 tablet 11 06/24/2015 Active amlodipine (NORVASC) 10 MG TABS Take 1 tablet by mouth daily. ONE DAILY FOR BLOOD PRESSURE 30 tablet 06/24/2015 Active pravastatin (PRAVACHOL) 20 MG TABS Take 1 tablet by mouth daily. 30 tablet 11 06/24/2015 Active albuterol 108 (90 BASE) MCG/ACT AERS Use 2 puffs every 6 (six) hours as needed. Active atorvastatin (LIPITOR) 20 MG TABS Take 1 tablet by mouth daily. 30 tablet 11 08/20/2015 Active lisinopril (PRINIVIL,ZESTR IL) 40 MG TABS Take 1 tablet by mouth daily. 30 tablet 11 08/20/2015 Active amlodipine (NORVASC) 10 MG TABS Take 1 tablet by mouth daily. 30 tablet 08/20/2015 Active Albuterol Sulfate 108 (90 BASE) MCG/ACT AEPB Use 2 puffs 3 (three) times daily. 1 each 08/20/2015 Active hydrochlorothia zide (HYDRODIURIL) 25 MG TABS Take 1 tablet by mouth every morning. 30 tablet 3 05/06/2016 Active amlodipine (NORVASC) 10 MG TABS TAKE 1 TABLET BY MOUTH ONE TIME A DAY 30 tablet 10/14/2016 Active Active Problems Problem Noted Date Diagnosed Date Chronic obstructive pulmonar y disease with acute lower resp infection 01/22/2014 Mixed hyperlipidemia 10/13/2013 BPH without obstruction/lower urinary tract symp toms 06/02/2013 Obstructive chronic bronchitis without exacerbat ion 07/19/2009 Overview (05/24/2010): Other acute reactions to stress 05/26/2009 Overview (05/24/2010): Routine general medical exam ination at a health care facility 09/20/2008 Overview (05/24/2010): Acute upper respiratory infection 05/11/2008 Overview (05/24/2010): Essential hypertension, benign 11/15/2007 Overview (05/24/2010): Dysfunction of eustachian tube 11/15/2007 Overview (05/24/2010): Tobacco use disorder 05/19/2006 Overview (05/24/2010): Simple chronic serous otitis media 05/19/2006 Overview (05/24/2010): Resolved Problems Problem Noted Date Diagnosed Date Resolved Date Essential hypertension, malignant 05/19/2006 01/13/2013 Overview (05/24/2010): Immunizations Immunization Administration Dates Next Due Pneumococcal Polysaccharide (PPV23) Pneumovax-23 07/19/2009 Tdap (Tetanus, Diphtheria & Pertussis) 2 Social History Tobacco Use Types Packs/Day Years Used Date Smoking Tobacco: Former Cigarettes 0.5 25 0 06/25/1990 - 06/25/2015 Smokeless Tobacco: Current Chew Tobacco Cessation:Counseling Given: Yes Alcohol Use Standard Drinks/Week Comments No 0 (1 standard drink = 0.6 oz pur e alcohol) Sex and Gender Information Value Date Recorded Sex Assigned at Not on file Legal Sex Male 4:18 PM EDT Gender Identity Not on file Sexual Orientation Not on file Last Filed Vital Signs Vital Sign Reading Time Taken Comments Blood Pressure 140/95 08/20/2015 11:05 AM EST Pulse 96 08/20/2015 10:19 AM EST Temperature 36.6 C (97.9 F) 05/21/2009 10:20 AM EST Respiratory Rate 12 07/19/2009 2:00 AM EST Oxygen Saturation - - Inhaled Oxygen Concentration - - Weight 85.4 kg (188 lb 4 oz) 08/20/2015 10:19 AM EST Height 182.9 cm (6') 08/20/2015 10:19 AM EST Body Mass Index 25.53 08/20/2015 10:19 AM EST Plan of Treatment Not on file Care Teams Manager Leadership Development Relationship Specialty Start Date End Date Tu Leiva MD PCP - General 08/25/10
--- OUTSIDE RECORDS SUMMARY | 2024-12-19 07:08 | XMS_ITS | Clinical Summary ---
Author Organization [facility] Address [facility] [place] [address] Care Team Providers Care Dice Table Operator Name Role Phone Pcp, No Primary Care Provider [phone] Source Comments This information has been disclosed to you from confidential records protectedfrom disclosure by state law. You shall make no further disclosure of thisinformation without the specific, written, and informed release of theindividual to whom it pertains, or as otherwise permitted by law. A generalauthorization for the release of medical or other information is not sufficientfor the purposes of therelease of HIV test results or diagnoses. [id number] Allergies Active Allergy Reactions Criticality Noted Date Comments Ibuprofen Rash Low 08/27/2014 Medications amLODIPine (NORVASC) 10 MG tablet Take 10 mg by mouth daily. Active polyethylene glycol (GLYCOLAX) 17 gram/dose powder Mix 1 capful (17 grams total) with 8 ounces of liquid and drink daily. 255 g 09/03/2014 5:26 PM EDT 5 Active senna-docusate (SENNA-S) 8.6-50 mg per tabletIndicatio ns:Bowel Evacuation,cons tipation Take 1 tablet by mouth 2 times a day. Indications: Bowel Evacuation, CONSTIPATION 30 tablet 09/03/2014 5:26 PM EDT 5 Active oxyCODONE (ROXICODONE) 5 MG immediate release tablet Take 1-2 tablets (5-10 mg total) by mouth 2 times a day as needed. 60 tablet 0 5 Active Active Problems Problem Noted Date Diagnosed Date Intertrochanteric fracture 08/22/2014 Social History Tobacco Use Types Packs/Day Years Used Date Smoking Tobacco: Every Day Cigarettes 1 31 Comments:smoking since age [age] Alcohol Use Standard Drinks/Week Comments Yes 0 (1 standard drink = 0.6 oz pur e alcohol) weekends Sex and Gender Information Value Date Recorded Sex Assigned at Not on file Legal Sex Male 6:17 PM EST Gender Identity Not on file Sexual Orientation Not on file Last Filed Vital Signs Vital Sign Reading Time Taken Comments Blood Pressure 162/86 01/16/2015 1:09 PM EDT Pt advised to monitor; already took BP meds today Pulse 94 09/03/2014 3:50 PM EDT Temperature 37.2 C (98.9 F) 09/03/2014 12:00 PM EDT Respiratory Rate 18 09/03/2014 3:50 PM EDT Oxygen Saturation 95% 09/03/2014 3:5 0 PM EDT Inhaled Oxygen Concentration 95% 09/03/2014 3:50 PM EDT Weight 81.2 kg (179 lb) 01/16/2015 1:09 PM EDT Height 182.9 cm (6') 01/16/2015 1:09 PM EDT Body Mass Index 24.28 01/16/2015 1:09 PM EDT Plan of Treatment Not on file Medical Devices Implanted Type Area Cash Analyst Device Identifier Shelf Expiration Date Model / Serial / Lot Nail Lng R1 5 Rt [id number] - [id number] Implanted:Qty: 1 on 08/23/2014 by Bernardino Borjas MD at [facility] Main Other Right: Femur [employer] 04/20/2018 3425-3400S / / [id number] Scr Lag 10.5thrd 95mm Ti Strl - [id number] Implanted:Qty: 1 on 08/23/2014 by Bernardino Borjas MD at [facility] Main Screw Right: Hip [employer] 12/18/2018 3060-0095S / / [id number] Scr Mechelle Ft T2 5x40mm Ti Strl - [id number] Implanted:Qty: 1 on 08/23/2014 by Bernardino Borjas MD at [facility] Main Screw Right: Femur [employer] 06/20/2019 1896-5040S / / [id number] Insurance WORKERS COMP [place] Member Subscriber Plan / Payer (Ef fective 2014-Present) Name:Aniya Daniel Relation to Subscriber:Self Name:Daniel Kwan Payer ID:[id number] Group ID:Not on file Type:Work Comp Address: [id number] [place] [address] Advance Directives For more information, please contact: [phone] * Full Code (Latest Code Status on File) Date Activated Date Inactivated Comments 08/22/2014 9:46 PM 09/03/2014 8:35 PM Care Teams Dice Table Operator Relationship Specialty Start Date End Date Pcp, No No Address PCP - General Pediatrics 09/10/14
--- OUTSIDE RECORDS SUMMARY | 2024-12-19 07:08 | XMS_ITS | Clinical Summary ---
Author Organization [facility] Address [address] [place] [address] Care Team Providers Care Line Camera Operator Name Role Phone Tu Leiva MD Primary Care Provider [phone] Allergies Active Allergy Reactions Criticality Noted Date [...] 07/19/2009 Tdap (Tetanus, Diphtheria & Pertussis) 2 Family History Medical History Relation Name Comments emphysema [Other] Father Cancer Mother Relation Name Status Comments Brother Alive Father Mother Social History Tobacco Use Types Packs/Day Years [...] 08/20/2015 10:19 AM EST Plan of Treatment Health Maintenance Due Date Last Done Comments Colonoscopy 2011 PSA YEARLY 2016 Pneumococcal 50+ (2 of 2 - PCV) 2016 0 Shingrix (#1) 2016 DTap,Tdap,and Td (2 - Td or Tdap) 08/19/2021 012 Influenza Vaccine (Season Ended) 2025 RSV Vaccine (60+ or ) (1 - 1-dose 75+ series) 2041 Pneumococcal 0-49 Discontinued 07/19/2009 HPV Aged Out No longer eligi ble based on patient's age to complete this topic Meningococcal conjugate vincent nt 4 (MCV4) Aged Out No longer eligible b ased on patient's age to complete this topic RSV Immunization (<20 months) Aged Out No longer eligible based on patient's age to complete this topic Care Teams Line Camera Operator Relationship Specialty Start Date End Date Tu Leiva MD PCP - General 08/25/10
--- NOTE | 2024-12-19 07:30 | CT_ITS ---
FINAL REPORT TECHNIQUE: Axial images were obtained through the chest without contrast, with supine inspiration and expiration, and prone inspiration images. Sagittal and coronal multiplanar reconstructions were obtained. This study was performed with techniques to keep radiation doses as low as reasonably achievable (ALARA). Individualized dose reduction techniques using automated exposure control or adjustment of mA and/or kV according to the patient's size were employed. CLINICAL HISTORY: interstitial lung disease COMPARISON: Prior CTA 07/04/2024 FINDINGS: CT CHEST WITHOUT CONTRAST: High resolution CT images were obtained using supine inspiratory and expiratory and prone inspiratory images of the chest. Densely calcified left hilar nodes are present. Coronary artery calcifications are noted as well. The previously noted bibasilar infiltrates in June 2024 have markedly improved since prior exam. On the current exam, prone inspiratory films do not reveal any evidence of fibrosis. On spine expiratory views, there is no significant air trapping, although there is mild atelectasis of the posterior right middle lobe. No evidence of fibrosis or bronchiectasis is seen. Calcified granulomas are noted in the spleen. IMPRESSION: No evidence of fibrosis, air trapping, or bronchiectasis is noted. The previously noted bibasilar infiltrates on the prior CT of 07/04/2024 have resolved. Reviewed, Interpreted and Dictated by Ryan Moya MD Transcribed by Janie Bhagat Authenticated and [facility]
== END 2024-12-19 23:59 | disposition home or self-care (01) ==
LOC: RAD 07:06
PROVIDERS: PCP Nurse Practitioner Family; Visit Provider Internal Medicine Pulmonary Disease
DX: J84.9 Interstitial pulmonary disease, unspecified (principal)
CPT/HCPCS: 71250

== ENCOUNTER 2025-01-11 11:43 | Outpatient (CLI) | payer OTHER, SELFPAY ==
[2025-01-11 13:22] LABS: Microscopic, Urine URINE MICROSCOPIC (MICROSCOPIC)
[2025-01-11 13:46] LABS: Hematocrit 41.3 % (42.0-52.0); Hemoglobin 10.8 g/dL (14.1-18.0); Immature Granulocytes % 0.3 %; Mean Corpuscular HGB Conc 26.2 g/dL (31.8-35.4); Mean Corpuscular Hemoglobin 18.6 pg (27.0-31.2); Mean Corpuscular Volume 71.2 fl (80-94); Nucleated Red Blood Cells % 0 %; Platelet Count 320 K/mm3 (142-424); Red Blood Count 5.80 M/mm3 (4.60-6.20); Red Cell Distribution Width-SD 51.6 fL; White Blood Count 12.1 K/mm3 (4.8-10.8)
[2025-01-11 14:03] LABS: Bilirubin,Urine Negative (Negative); Color,Urine YELLOW (Yellow); Glucose,Urine (UA) Negative (Negative); Ketones,Urine Negative (Negative); Leukocyte Esterase,Urine Negative (Negative); PH,Urine 6.0 (5.0-8.5); Protein,Urine Negative (Negative); Specific Gravity, Urine 1.010 (1.005-1.030); Urobilinogen,Urine 0.2 EU/dl (0.2)
[2025-01-11 15:11] LABS: Albumin Level 4.5 g/dl (3.5-5.0); Chloride 90 mmol/L (98-107); Potassium 5.2 mmoL/L (3.5-5.1); Sodium 134 mmol/L (136-145)
[2025-01-11 15:13] LABS: Alanine Aminotransferase 27 U/L (12-78); Anion Gap 11.2 mEq/L (5-15); Aspartate Amino Transferase 47 U/L (17-59); Blood Urea Nitrogen 17 mg/dl (9-20); Carbon Dioxide 38 mmol/L (22.0-30.0); Creatinine,Serum 0.70 mg/dl (0.66-1.25); Estimated Glomerular Filt Rate 116 ml/min (>60); GFR (African American) 140 ML/MIN (>60)
[2025-01-11 15:14] LABS: Albumin/Globulin Ratio 1.5 (1.1-1.8); Alkaline Phosphatase 139 U/L (38-126); Bilirubin,Total 0.6 mg/dl (0.2-1.3); Calcium 9.2 mg/dl (8.4-10.2); Globulin 3.0 g/dL (1.3-3.2); Glucose 179 mg/dl (74-100); Iron 36 ug/dL (49-181); Magnesium 1.5 mg/dl (1.6-2.3); Total Protein,Serum 7.5 g/dl (6.3-8.2)
[2025-01-11 15:24] LABS: Total Iron Binding Capacity 499 ug/dL (261-462)
[2025-01-11 15:50] LABS: Ferritin 5.28 ng/ml (17.9-464)
[2025-01-11 17:08] LABS: Hemoglobin A1C 9.0 % (4.0-6.0)
[2025-01-12 08:14] LABS: Testosterone,Total 195 ng/dL (264-916)
[2025-01-14 16:18] LABS: Testosterone,Free 2.6 pg/mL (7.2-24.0)
--- OUTSIDE RECORDS SUMMARY | 2025-01-15 11:47 | XMS_ITS | Referral Summary ---
Author Organization [facility] Address [address] [place] [address] Care Team Providers Care Cut Off Saw Operator Metal Name Role Phone Tu Leiva MD Primary Care Provider [phone] [phone] Allergies Active Allergy Reactions Criticality Noted Date [...] of Treatment Not on file Care Teams Cut Off Saw Operator Metal Relationship Specialty Start Date End Date Tu Leiva MD PCP - General 08/25/10
--- OUTSIDE RECORDS SUMMARY | 2025-01-15 11:47 | XMS_ITS | Clinical Summary ---
Author Organization [facility] Address [address] [place] [address] Care Team Providers Care Wet Room Worker Name Role Phone Tu Leiva MD Primary Care Provider [phone] [phone] Allergies Active Allergy Reactions Criticality Noted Date [...] Td or Tdap) 08/19/2021 012 Influenza Vaccine (#1) 2025 RSV Vaccine (60+ or ) (1 [...] age to complete this topic Care Teams Wet Room Worker Relationship Specialty Start Date End Date Tu Leiva MD PCP - General 08/25/10
--- OUTSIDE RECORDS SUMMARY | 2025-01-15 11:47 | XMS_ITS | Clinical Summary ---
Author Organization [facility] Address [facility] [place] [address] Care Team Providers Care Tank Processor Name Role Phone Pcp, No Primary Care [...] therelease of HIV test results or diagnoses. [id number] Allergies Active Allergy Reactions Criticality Noted [...] on file Medical Devices Implanted Type Area Septic Technician Device Identifier Shelf Expiration Date Model / Serial / Lot Nail Lng R1 5 Rt [id number] - [id number] Implanted:Qty: 1 on 08/23/2014 by Bernardino Borjas MD at [facility] Main Other Right: Femur [employer] 04/20/2018 3425-3400S / / [id number] Scr Lag 10.5thrd 95mm Ti Strl - [id number] Implanted:Qty: 1 on 08/23/2014 by Bernardino Borjas MD at [facility] Main Screw Right: Hip [employer] 12/18/2018 3060-0095S / / [id number] Scr Mechelle Ft T2 5x40mm Ti Strl - [id number] Implanted:Qty: 1 on 08/23/2014 by Bernardino Borjas MD at [facility] Main Screw Right: Femur [employer] 06/20/2019 1896-5040S / / [id number] Insurance 1988 [address] MICHELLE [place]ERR[place], [place] [id number] WORKERS COMP [place] Member Subscriber Plan / Payer (Ef fective 2014-Present) Name:Aniya Daniel Relation to Subscriber:Self Name:Daniel Kwan Payer ID:[id number] Group ID:Not on file Type:Work Comp Address: [id number] [place] [address] Advance Directives For more information, please contact: [phone] * Full Code (Latest Code Status on File) Date Activated Date Inactivated Comments 08/22/2014 9:46 PM 09/03/2014 8:35 PM Care Teams Tank Processor Relationship Specialty Start Date End Date Pcp, No No Address PCP - General Pediatrics 09/10/14
== END 2025-01-11 23:59 | disposition home or self-care (01) ==
LOC: LAB.DROPOF 01-15 11:44
PROVIDERS: PCP Nurse Practitioner Family; Visit Provider Nurse Practitioner Family
DX: D50.9 Iron deficiency anemia, unspecified (principal); E83.42 Hypomagnesemia; D75.1 Secondary polycythemia; E11.9 Type 2 diabetes mellitus without complications; I10 Essential (primary) hypertension; E80.6 Other disorders of bilirubin metabolism; N52.9 Male erectile dysfunction, unspecified; R41.3 Other amnesia
CPT/HCPCS: 80053; 81001; 82728; 83036; 83540; 83550; 83735; 84156; 84402; 84403; 85025

== ENCOUNTER 2025-04-18 09:05 | Outpatient (CLI) | payer OTHER, SELFPAY ==
[2025-04-18 13:23] LABS: Microscopic, Urine URINE MICROSCOPIC (MICROSCOPIC)
[2025-04-18 13:44] LABS: Hematocrit 43.8 % (42.0-52.0); Hemoglobin 11.3 g/dL (14.1-18.0); Immature Granulocytes % 0.3 %; Mean Corpuscular HGB Conc 25.8 g/dL (31.8-35.4); Mean Corpuscular Hemoglobin 18.4 pg (27.0-31.2); Mean Corpuscular Volume 71.3 fl (80-94); Nucleated Red Blood Cells % 0 %; Platelet Count 280 K/mm3 (142-424); Red Blood Count 6.14 M/mm3 (4.60-6.20); Red Cell Distribution Width-SD 53.1 fL; White Blood Count 12.1 K/mm3 (4.8-10.8)
[2025-04-18 14:13] LABS: Alanine Aminotransferase 31 U/L (12-78); Albumin Level 3.9 g/dl (3.5-5.0); Albumin/Globulin Ratio 0.9 (1.1-1.8); Alkaline Phosphatase 130 U/L (38-126); Anion Gap 16.4 mEq/L (5-15); Aspartate Amino Transferase 50 U/L (17-59); Bilirubin,Total 0.7 mg/dl (0.2-1.3); Blood Urea Nitrogen 22 mg/dl (9-20); Calcium 9.1 mg/dl (8.4-10.2); Carbon Dioxide 36 mmol/L (22.0-30.0); Chloride 87 mmol/L (98-107); Cholesterol 85 mg/dl (140-200); Creatinine,Serum 1.10 mg/dl (0.66-1.25); Estimated Glomerular Filt Rate 69 ml/min (>60); GFR (African American) 83 ML/MIN (>60); Globulin 4.5 g/dL (1.3-3.2); Glucose 164 mg/dl (74-100); HDL Cholesterol 30 mg/dl (40-60); Iron 47 ug/dL (49-181); Magnesium 1.3 mg/dl (1.6-2.3); Potassium 4.4 mmoL/L (3.5-5.1); Sodium 135 mmol/L (136-145); Total Protein,Serum 8.4 g/dl (6.3-8.2); Triglycerides 92 mg/dl (30-150)
[2025-04-18 14:25] LABS: Total Iron Binding Capacity 512 ug/dL (261-462)
[2025-04-18 14:50] LABS: Ferritin 5.82 ng/ml (17.9-464)
[2025-04-18 16:06] LABS: Bilirubin,Urine Negative (Negative); Color,Urine YELLOW (Yellow); Glucose,Urine (UA) Negative (Negative); Ketones,Urine Negative (Negative); Leukocyte Esterase,Urine Negative (Negative); PH,Urine 6.5 (5.0-8.5); Protein,Urine Negative (Negative); Specific Gravity, Urine 1.010 (1.005-1.030); Urobilinogen,Urine 0.2 EU/dl (0.2)
[2025-04-18 16:34] LABS: Hemoglobin A1C 7.2 % (4.0-6.0)
[2025-04-18 19:36] LABS: RBC,Urine Occasional #/hpf (0-3); Squamous Epithelial Cell,Urine Occasional #/hpf (0-5); WBC,Urine Occasional #/hpf (0-3)
[2025-04-19 12:12] LABS: Testosterone,Total 596 ng/dL (264-916)
== END 2025-04-18 23:59 | disposition home or self-care (01) ==
LOC: LAB.DROPOF 04-19 14:08
PROVIDERS: PCP Nurse Practitioner Family; Visit Provider Nurse Practitioner Family
DX: N52.9 Male erectile dysfunction, unspecified (principal); D50.9 Iron deficiency anemia, unspecified; R79.89 Other specified abnormal findings of blood chemistry; E83.42 Hypomagnesemia; D75.1 Secondary polycythemia; E11.9 Type 2 diabetes mellitus without complications; E78.5 Hyperlipidemia, unspecified; I10 Essential (primary) hypertension; E80.6 Other disorders of bilirubin metabolism; Z12.5 Encounter for screening for malignant neoplasm of prostate; R41.3 Other amnesia
CPT/HCPCS: 80053; 80061; 81001; 82043; 82570; 82728; 83036; 83540; 83550; 83735; 84156; 84402; 84403; 85025; G0103